=== PATIENT | female | born 1950 | race Caucasian/White ===

== ENCOUNTER 2023-07-05 11:53 | Emergency (ER) | payer MEDICARE, MEDICAID, SELFPAY ==
[2023-07-05] VITALS (9 sets, daily range): BP systolic 103–128; BP diastolic 65–97; PULSE 88–96; RESP 14–20; TEMP 36.4; O2SAT 95–100
--- NOTE | ~2023-07-05 | XR_ITS ---
EXAM: XR shoulder LT min 2V, XR humerus LT DATE: 07/05/2023 14:07 HISTORY: fracture on xr, BEST IMAGES POSSIBLE . COMPARISON: None available. FINDINGS: Decreased mineralization. The AC joint and glenohumeral joint are aligned. Moderate polyar ticular shoulder osteoarthritis. Rotator cuff pathology. Left chest port terminating in the proximal SVC. Deformity of the humeral head, may represent acute or chronic fracture. No lytic or blastic lesi on. Joint spaces are maintained. No erosion or periosteal change. Soft tissues within normal limits. IMPRESSION: Acute versus chronic impacted left humeral head fracture, no comparisons are available, c orrelate with pain/tenderness.. Reviewed, dictated and finalized at location K. IMPRESSION: Acute versus chronic impacted left humeral head fracture, no compar isons are available, correlate with pain/tenderness..
--- NOTE | ~2023-07-05 | XR_ITS ---
EXAMINATION: XR chest 2V DATE: 07/05/2023 13:21 INDICATION: Shortness of breath TECHNIQUE: frontal and lateral views of the chest were obtained. COMPARISON: None FINDINGS: Left internal jugular central venous port catheter with distal tip at the cephalad superior vena cava . Opacity along the right heart border which could represent atelectasis or pneumonia in the right mi ddle lobe or more likely a prominent right pericardial fat pad. Calcified nodules in the right midlun g zone and calcified right hilar and mediastinal lymph nodes consistent with old granulomatous diseas e. No pleural effusion or pneumothorax. Heart size is normal. Age-indeterminate proximal left humeral fracture. IMPRESSION: 1. Opacity along the right heart border most likely related to a pericardial fat pad although atelect asis or pneumonia in the right middle lobe could not be excluded. 2. Age-indeterminate proximal left humeral fracture. Reviewed, dictated and finalized at location A. IMPRESSION: 1. Opacity along the right heart border most likely related to a pericardial fa t pad although atelectasis or pneumonia in the right middle lobe could not be e xcluded. 2. Age-indeterminate proximal left humeral fracture.
--- NOTE | 2023-07-05 12:00 | ECG_ITS ---
Measurements Intervals [place] Rate: 92 P: 100 [place]: 171 QRS: -31 QRSD: 82 T: 73 QT: 367 QTc: 456 Interpretive Statements SINUS RHYTHM LEFT AXIS DEVIATION DELAYED PRECORDIAL R/S TRANSITION BORDERLINE ST-T WAVE ABNORMALITY- HIGH LATERAL LEADS BASELINE ARTIFACT- I, II, III, AVR, AVL, AVF BORDERLINE ECG NO PREVIOUS ECG AVAILABLE FOR COMPARISON Electronically Signed On 07-05-2023 13:30:54 CDT by Rm Bishop D.O.
--- NOTE | 2023-07-05 12:04 | ED.SOB ---
HPI - SOB/Dyspnea General Chief Complaint: Shortness of Breath/Dyspnea Stated Complaint: dyspnea History of Present Illness HPI Narrative: Patient is a 72-year-old female with history of COPD, GERD, breast CA, T2DM, depression, anxiety here with shortness of breath and cough. Patient states that her symptoms began about 2 weeks ago, she has had a productive cough associated with green sputum. She notes some associated midsternal chest pain which is nonradiating and seems to worsen with a cough. She denies any cardiac history, denies any history of PE or DVT. Unknown if she has had any sick contacts. She states that she wears 2-3 L nasal cannula at baseline which she is currently on now. Per EMS there were initial call was for shortness of breath, patient had received a 0.5 mg of Ativan as well as a breathing treatment and on driving patient into the department she noted her shortness of breath significantly improved. Related Data Allergies Allergy/AdvReac Type Severity Reaction Status Date / Time No Known Allergies Allergy Verified 07/05/23 12:09 Review of Systems Review of Systems: All systems reviewed & are unremarkable except as noted in HPI and below Exam Narrative: GENERAL: Well-appearing, well-nourished, and in no acute distress. HEAD: Normocephalic, atraumatic. EYES: PERRLA and EOMI. ENT: Nares clear. Mucous membranes moist. NECK: Supple. CHEST: Faint bilateral wheeze present. No respiratory distress. Saturating 95% on 2L nasal canula. HEART: Regular rate and rhythm. Normal peripheral pulses. ABDOMEN: Soft, nontender, nondistended. EXTREMITIES: Normal range of motion. No edema. SKIN: Warm, dry, no rash. NEURO: No focal deficits. Alert and oriented x3. PSYCH: Normal mood and affect. Course Course Emergency Course: Chart review performed. Patient here with shortness of breath and productive cough. No prior visits in our system. Triage vitals normal. Patient seen evaluated, nontoxic appearing. She is here with shortness of breath, cough and chest pain. Differentials include PNA, viral illness, COPD exacerbation, less likely ACS, PE. Cardiac workup ordered, viral swabs, d-dimer. Lab work and imaging reviewed. CBC unremarkable, D-dimer negative. Electrolytes within normal limits, troponin negative. BNP normal. Chest x-ray shows possible right infiltrate. Will start on antibiotics for pneumonia coverage with Augmentin and doxycycline. They did see a fracture of the proximal humerus. Dedicated humerus films and shoulder films performed. Acute versus chronic fracture seen on x-ray. Spoke with son who notes that this is a prior injury after falling at her last facility she lives at. Repeat troponin negative. The results of pertinent diagnostic studies and exam findings were discussed. The patient?s provisional diagnosis and plan of care were discussed with the patient and present family. The patient and/or present family expressed understanding of the diagnosis and plan. The nurse was instructed to provide written instructions and appropriate follow-up information. The patient understands their need and responsibility to obtain additional follow-up as instructed. The risks of medications administered and prescribed were discussed with the patient and family present. Vital Signs Vital signs: Vital Signs Temperature 97.5 F L 07/05/23 11:53 Pulse Rate 91 07/05/23 11:53 Respiratory Rate 15 07/05/23 11:53 Blood Pressure 125/79 07/05/23 11:53 Pulse Oximetry 96 07/05/23 11:53 Oxygen Delivery Nasal Cannula 07/05/23 11:53 Oxygen Flow Rate 2 07/05/23 11:53 Temperature 97.5 F L 07/05/23 11:53 Pulse Rate 93 07/05/23 15:27 Respiratory Rate 14 07/05/23 15:27 Blood Pressure 105/70 07/05/23 15:27 Pulse Oximetry 100 07/05/23 15:27 Oxygen Delivery Nasal Cannula 07/05/23 14:37 Oxygen Flow Rate 2 07/05/23 14:37 MDM - SOB/Dyspnea Lab Data 07/05/23 12:29
--- NOTE | 2023-07-05 12:32 | PC.NURSE ---
Pt reports she had double mastectomy. Pt states she cannot have BP taken on either arm but states she can have blood work and IV's placed in either arm
[2023-07-05 12:36] LABS: Basophils Absolute Auto 0.1 K/mm3 (0.0-0.1); Basophils Percent Auto 0.8 % (0.2-1.2); Eosinophils Absolute Auto 0.1 K/mm3 (0-0.3); Eosinophils Percent Auto 0.9 % (0-4.4); Hematocrit 43.7 % (37.0-47.0); Hemoglobin 14.3 g/dL (12.0-15.0); Immature Granulocyte Absolute 0.02 K/mm3 (0.00-0.031); Immature Granulocyte Percent A 0.3 % (0-0.5); Lymphocytes Absolute Auto 1.56 K/mm3 (0.9-3.2); Lymphocytes Percent Auto 20.3 % (18.3-44.2); Mean Corpuscular HGB Conc 32.7 g/dl (32-36); Mean Corpuscular Hemoglobin 30.9 pg (26-34); Mean Corpuscular Volume 94.4 fl (80-100); Mean Platelet Volume 10.3 fl (7.4-10.4); Monocytes Absolute Auto 0.5 K/mm3 (0.1-0.6); Neutrophils Absolute Auto 5.4 K/mm3 (1.3-6.7); Neutrophils Percent Auto 70.7 % (45.5-73.1); Platelet Count Result 195 k/mm3 (150-375); Red Blood Count 4.63 M/mm3 (4.2-5.4); Red Cell Distribution Width 14.3 % (11.5-14.5); White Blood Count 7.7 K/mm3 (4.5-10.0)
[2023-07-05 12:47] LABS: INR 1.1; Prothrombin Time 14.9 Seconds (11.1-14.7)
[2023-07-05 12:48] LABS: Lactic Acid Reflex 2.9 mmol/L (0.7-2.0); Partial Thromboplastin Time 35.1 Seconds (22.3-36.8)
[2023-07-05 12:50] LABS: Alanine Aminotransferase 60 U/L (6-35); Albumin Level 4.2 g/dL (3.5-5.1); Alkaline Phosphatase 105 U/L (38-126); Anion Gap 8 mmol/L (8-16); Aspartate Amino Transferase 114 U/L (14-36); Bilirubin,Total 0.5 mg/dL (0.2-1.3); Blood Urea Nitrogen 12 mg/dL (7-17); Calcium 9.4 mg/dL (8.4-10.2); Carbon Dioxide 29 mmol/L (22-30); Chloride 101 mmol/L (98-107); Estimated CRCL calculation 105 ml/min; Estimated Glomerular Filt Rate > 60; Glucose 152 mg/dL (65-110); Potassium 4.1 mmol/L (3.4-5.0); Sodium 138 mmol/L (137-145)
[2023-07-05 12:53] LABS: D Dimer 0.44 ug/mL (<0.48)
[2023-07-05 13:01] LABS: NT Pro B Type Natriuretic Pept 90 pg/mL (19.9-100); Troponin I < 0.012 ng/mL (0.000-0.034)
[2023-07-05] MEDS: LACTATED RINGERS 1,000 ML 999 ML IV CONT (13:33)
[2023-07-05] MEDS: IPRATROPIUM 0.5 MG/ALBUTEROL SULFATE 2.5 MG AMPUL.NEB 3 ML INHALATION (13:35)
[2023-07-05 14:25] LABS: Influenza A QL RT-PCR Negative (Negative); Influenza B QL RT-PCR Negative (Negative); RSV RNA, RT-PCR Negative (Negative); SARS-CoV-2 RNA PCR Negative (Negative)
[2023-07-05] MEDS: AMOXICILLIN/CLAVULANATE K 875-125 MG TAB 1 TABLET PO (14:33)
[2023-07-05] MEDS: DOXYCYCLINE HYCLATE 100 MG TABLET PO (14:33)
--- NOTE | 2023-07-05 15:16 | ECG_ITS ---
Measurements Intervals [place] Rate: 94 P: 102 [place]: 168 QRS: -32 QRSD: 85 T: 79 QT: 361 QTc: 451 Interpretive Statements SINUS RHYTHM LEFT AXIS DEVIATION DELAYED PRECORDIAL R/S TRANSITION BORDERLINE ST-T WAVE ABNORMALITY- HIGH LATERAL LEADS BASELINE ARTIFACT- I, II, III, AVR, AVL, AVF BORDERLINE ECG COMPARED TO ECG 07/05/2023 11:57:00 NO SIGNIFICANT CHANGES Electronically Signed On 07-05-2023 16:13:19 CDT by Rm Bishop D.O.
[2023-07-05 15:34] LABS: Reflex Lactic Acid Yes or No Add Lactic
[2023-07-05 15:50] LABS: Troponin I < 0.012 ng/mL (0.000-0.034)
== END 2023-07-05 17:09 ==
PROVIDERS: Emergency Provider Student in an Organized Health Care Education/Training Program; PCP Hospitalist
DX: J18.9 Pneumonia, unspecified organism (principal); S42.202D Unspecified fracture of upper end of left humerus, subsequent encounter for fracture with routine healing; J44.9 Chronic obstructive pulmonary disease, unspecified; E11.9 Type 2 diabetes mellitus without complications; Z85.3 Personal history of malignant neoplasm of breast; Z20.822 Contact with and (suspected) exposure to COVID-19; X58.XXXD Exposure to other specified factors, subsequent encounter
CPT/HCPCS: 36415; 71046; 73030; 73060; 80053; 83605; 83880; 84484; 85025; 85380; 85610; 85730; 87040; 87637; 93005; 94640; 96360; 99284; A9270; J7120

== ENCOUNTER 2023-10-28 07:25 | Inpatient (IN) | payer MEDICARE, MEDICAID, SELFPAY ==
[2023-10-28] VITALS (28 sets, daily range): BP systolic 113–160; BP diastolic 65–149; PULSE 72–105; RESP 14–23; TEMP 36.6–37.5; O2SAT 90–100
--- NOTE | ~2023-10-28 | XR_ITS ---
XR chest 2V Ordering provider: Clarissa Dennis MD History: 72 years Female with . cough CONGESTION SOB COPD . Comparison: 07/05/2023 FINDINGS: MEDIASTINUM: The cardiac silhouette is not enlarged. Left Port-A-Cath with the tip overlying superior vena cava. Prominent both santhosh. LUNGS: No infiltrates, effusions or pneumothorax. Atelectatic changes seen in the right lung base med ially. Granuloma in the right perihilar area unchanged. OTHER: No free air under the diaphragm. IMPRESSION: Atelectatic changes in the right middle lobe area. Pneumonia cannot be excluded. No change from previ ous examination. Reviewed, dictated and finalized at location A. IMPRESSION: Atelectatic changes in the right middle lobe area. Pneumonia cannot be excluded . No change from previous examination.
--- NOTE | ~2023-10-28 | CT_ITS ---
EXAMINATION: CT abdomen pelvis wo con DATE: 10/28/2023 18:44 INDICATION: Generalized abdominal pain. TECHNIQUE: Computed tomography (CT) of the abdomen and pelvis was performed without intravenous contr ast. Automated exposure control and iterative reconstruction technique were employed. The dose-length product was 2624.95 mGy-cm. COMPARISON: None. FINDINGS: The visualized portions of lung bases demonstrate emphysema and mild atelectasis. No pleura l effusion. The heart size is normal. There are coronary artery calcifications. There are calcificati ons of the aortic valve. There is a small pericardial effusion. The liver demonstrates surface nodula rity, consistent with cirrhosis. Calcifications in the liver and spleen are consistent with old granu lomatous disease. There are gallstones in the gallbladder, which is normal in size. The pancreas and left adrenal gland are normal. There is a 5.0 cm mass containing fat in right adrenal gland, consiste nt with a myelolipoma. Right kidney is normal. There is a 3.3 cm cyst in left kidney. There is divert iculosis of the colon without evidence of diverticulitis. There are no dilated loops of bowel. The ap pendix is normal. There are no pathologically enlarged lymph nodes. There is no free intraperitoneal fluid. There is a chronic burst fracture of L1. There is a chronic compression fracture of T12. There is mild lumbar spondylosis. IMPRESSION: 1. Cirrhosis of the liver. 2. Small pericardial effusion. 3. Cholelithiasis. Reviewed, dictated and finalized at location E.
--- NOTE | 2023-10-28 07:31 | ECG_ITS ---
Test Date: 2023-10-28 07:31:57 Measurements Intervals [place] Rate: 77 P: 27 [place]: 179 QRS: -32 QRSD: 82 T: 79 QT: 374 QTc: 425 Interpretive Statements SINUS RHYTHM LEFT AXIS DEVIATION LOW QRS VOLTAGE IN PRECORDIAL LEADS NONSPECIFIC ST & T-WAVE ABNORMALITY- HIGH LATERAL LEADS BASELINE ARTIFACT- I, II, III, AVR, AVL, AVF, V1-V6 BORDERLINE ECG No previous ECG available for comparison Electronically Signed On 10-28-2023 07:44:36 CDT by Rm Bishop D.O.
[2023-10-28 07:46] LABS: Basophils Percent Auto 0.5 % (0.2-1.2); Eosinophils Absolute Auto 0.1 K/mm3 (0-0.3); Eosinophils Percent Auto 0.9 % (0-4.4); Hematocrit 41.5 % (37.0-47.0); Hemoglobin 13.2 g/dL (12.0-15.0); Immature Granulocyte Absolute 0.03 K/mm3 (0.00-0.031); Immature Granulocyte Percent A 0.4 % (0-0.5); Lymphocytes Absolute Auto 1.76 K/mm3 (0.9-3.2); Lymphocytes Percent Auto 20.7 % (18.3-44.2); Mean Corpuscular HGB Conc 31.8 g/dl (32-36); Mean Corpuscular Hemoglobin 31.1 pg (26-34); Mean Corpuscular Volume 97.9 fl (80-100); Mean Platelet Volume 10.2 fl (7.4-10.4); Monocytes Absolute Auto 0.6 K/mm3 (0.1-0.6); Monocytes Percent Auto 7.4 % (2.6-8.5); Neutrophils Percent Auto 70.1 % (45.5-73.1); Platelet Count Result 193 k/mm3 (150-375); Red Blood Count 4.24 M/mm3 (4.2-5.4); Red Cell Distribution Width 14.8 % (11.5-14.5); White Blood Count 8.5 K/mm3 (4.5-10.0)
--- NOTE | 2023-10-28 07:49 | ED.SOB ---
HPI - SOB/Dyspnea General Chief Complaint: Shortness of Breath/Dyspnea Stated Complaint: SOB History of Present Illness HPI Narrative: Patient is a 72-year-old female with history of COPD on 2-3 L nasal cannula at baseline, bedbound sent here from [facility] for cough. Patient notes that she has had a cough for about 4 weeks. she notes that she feels like she needs to cough up phlegm but she is unable to. It has been persistently worsening over the last 4 weeks. She denies any associated fever. She has had some chronic nasal congestion due to her nasal cannula use. She notes she has had 2 separate x-rays at her care facility which were found to be normal. She has not been on any antibiotics or steroids. she does not traditionally use breathing treatments due to them making her feel jittery and nauseous however her facility did order her an albuterol inhaler the other day which she has not been using. She denies any chest pain. No prior cardiac history, no leg swelling. She notes she has had ongoing diarrhea which resolved a couple of days ago after taking a dose of Imodium. No known sick contacts. Related Data Allergies Allergy/AdvReac Type Severity Reaction Status Date / Time No Known Allergies Allergy Verified 07/05/23 12:09 Review of Systems Review of Systems: All systems reviewed & are unremarkable except as noted in HPI and below PMFSH Past Medical History Medical History COPD (chronic obstructive pulmonary disease) Diabetes Surgical History Surgical History No significant past surgical history Social History Social History Smoking status: Never smoker Second hand tobacco smoke exposure: No Alcohol intake: never Substance use: never Do You Feel Safe in your Home?: Yes Lack of Transportation: No Lack of Food: Never True Current Housing: I Have Housing Concerned About Future Housing: No Difficulty Paying Gas/Electric Bills: No Difficulty Paying for Meds: No Currently Unemployed: No Education: High School Diploma/GED Difficulty w/ Childcare or Family Care: No Spiritual care concerns: No Exam Narrative: GENERAL: Well-appearing, well-nourished, and in no acute distress. HEAD: Normocephalic, atraumatic. EYES: PERRLA and EOMI. ENT: Nares clear. Mucous membranes moist. NECK: Supple. CHEST: Coarse bilateral breath sounds. Actively coughing on exam. No respiratory distress. HEART: Regular rate and rhythm. Normal peripheral pulses. ABDOMEN: Soft, nontender, nondistended. EXTREMITIES: Normal range of motion. No edema. SKIN: Warm, dry, no rash. NEURO: No focal deficits. Alert and oriented x3. Tremor noted in bilateral upper extremities PSYCH: Normal mood and affect. Course Course Emergency Course: Chart review performed. Patient here from [facility] for cough and congestion x 4 weeks. History of COPD, wears 2L NC at all times. Triage vitals grossly normal. Patient seen evaluated, nontoxic appearing. She does have coarse bilateral breath sounds and is actively coughing on exam. Concern for possible pneumonia versus viral illness versus bronchitis versus COPD exacerbation. Less likely ACS or heart failure given lack of history and no chest pain or leg swelling. Will do breathing treatment, steroids, workup for shortness of breath as well as a cardiac workup. Patient agreeable to workup and plan. Lab work and imaging reviewed, CBC unremarkable, electrolytes grossly normal with a normal renal function. AST and ALT are lower than prior. Troponin normal, BNP normal. COVID, influenza, RSV negative. Chest x-ray shows atelectasis in the right middle lobe area, pneumonia cannot be excluded, no change from previous exam. Rocephin and azithromycin ordered to cover for COPD exacerba
--- NOTE | 2023-10-28 07:51 | ECG_ITS ---
Test Date: 2023-10-28 08:11:11 Measurements Intervals [place] Rate: 79 P: 44 [place]: 185 QRS: -21 QRSD: 85 T: 62 QT: 396 QTc: 455 Interpretive Statements SINUS RHYTHM LOW QRS VOLTAGE IN PRECORDIAL LEADS BORDERLINE ST-T WAVE ABNORMALITY- HIGH LATERAL LEADS BASELINE ARTIFACT- I, II, III, AVR, AVL, AVF, V1-V6 BORDERLINE ECG Compared to ECG 10/28/2023 07:31:57 No significant changes Electronically Signed On 10-28-2023 08:26:08 CDT by Rm Bishop D.O.
[2023-10-28 07:59] LABS: Alanine Aminotransferase 44 U/L (6-35); Albumin Level 3.8 g/dL (3.5-5.1); Alkaline Phosphatase 114 U/L (38-126); Anion Gap 3 mmol/L (4-12); Aspartate Amino Transferase 59 U/L (14-36); Bilirubin,Total 0.6 mg/dL (0.2-1.3); Blood Urea Nitrogen 8 mg/dL (7-17); Calcium 8.5 mg/dL (8.4-10.2); Carbon Dioxide 39 mmol/L (22-30); Chloride 100 mmol/L (98-107); Estimated CRCL calculation 102 ml/min; Estimated Glomerular Filt Rate > 60; Glucose 128 mg/dL (65-110); Potassium 3.9 mmol/L (3.4-5.0); Sodium 142 mmol/L (137-145)
[2023-10-28 08:11] LABS: NT Pro B Type Natriuretic Pept 145 pg/mL (19.9-100); Troponin I < 0.012 ng/mL (0.000-0.034)
[2023-10-28 08:22] LABS: Influenza A QL RT-PCR Negative (Negative); Influenza B QL RT-PCR Negative (Negative); RSV RNA, RT-PCR Negative (Negative); SARS-CoV-2 RNA PCR Negative (Negative)
[2023-10-28] MEDS: methylPREDNISolone SOD SUCC 125 MG VIAL IV PUSH (08:35)
[2023-10-28] MEDS: IPRATROPIUM BR 0.02% INH SOLN 0.5 MG/2.5 ML VIAL INHALATION ×3 (08:36→20:22)
[2023-10-28] MEDS: LEVALBUTEROL NEB 1.25 MG/3 ML INHALATION (08:36)
--- NOTE | 2023-10-28 12:42 | PM.IMHP ---
H&P: HPI History of Present Illness Date/Time: 10/28/23 12:42 Chief Complaint: Shortness of Breath Narrative: 72 y/o F presents here with shortness of breath with PMH of DM depression/anxiety, and COPD. The patient presents here via EMS from [facility] for further evaluation of ongoing shortness of breath. Initially started with cough that was nonproductive, cough now producing green sputum. Has been progressively worsening over the last 4 weeks and now has associated shortness of breath. Endorsing nasal and chest congestion (chronic due to nasal cannula usage) have worsened. States she was up all last night due to the shortness of breath and cough. Shortness of breath worsens with exertion or laying flat. Patient also reports baseline tremor to upper extremities, worsened at present. Endorsing accompanying chest pain that occurs with cough, fever, chills, diaphoretic. Denying associated palpitations, body aches, or diarrhea. Does not utilize nebulizers, make patient jittery/nauseous. Was recently prescribed Albuterol inhaler, has not utilized yet. No recent steroid courses or antibiotic courses. Also reporting onset of diffuse abdominal pain with tenderness with palpation today. LBM was yesterday (10/26) and normal in consistency. No associated N/V/D. Had jelly-like stool this afternoon, no BRB per rectum or dark tarry stools. Initial VS at presentation: 99.5? F, HR 77, RR 20, 129/104, and 93% on 2L NC. ED workup showed: No leukocytosis, no anemia, CO2 39, gap 3, creatinine 0.5 and GFR >60, mild bump in LFTs, initial troponin negative, and BNP 145. Viral PCR negative. CXR showed atelectatic changes of the right middle lobe area, pneumonia cannot be excluded, no change from previous exam (06/2023). Review of Systems Review of Systems: All systems reviewed & are unremarkable except as noted in HPI and below PMFSH Past Medical History Medical History COPD (chronic obstructive pulmonary disease) Diabetes Surgical History Surgical History No significant past surgical history Social History Social History Smoking status: Never smoker Second hand tobacco smoke exposure: No Alcohol intake: never Substance use: never Do You Feel Safe in your Home?: Yes Lack of Transportation: No Lack of Food: Never True Current Housing: I Have Housing Concerned About Future Housing: No Difficulty Paying Gas/Electric Bills: No Difficulty Paying for Meds: No Currently Unemployed: No Education: High School Diploma/GED Difficulty w/ Childcare or Family Care: No Spiritual care concerns: No Meds Home Medications and Allergies Home Medications Medication Instructions Recorded Confirmed Type acetaminophen 650 mg tablet 650 mg PO TID 10/28/23 10/28/23 History albuterol sulfate 90 mcg/actuation 2 puff inhalation Q4H PRN S.O.B 10/28/23 10/28/23 History aerosol inhaler aripiprazole 2 mg tablet 2 mg PO DAILY 10/28/23 10/28/23 History aripiprazole 5 mg tablet 5 mg PO DAILY 10/28/23 10/28/23 History buspirone 10 mg tablet 10 mg PO TID 10/28/23 10/28/23 History cholecalciferol (vitamin D3) 25 50 mcg PO DAILY 10/28/23 10/28/23 History mcg (1,000 unit) capsule (Vitamin D3) escitalopram oxalate 10 mg tablet 20 mg PO DAILY 10/28/23 10/28/23 History ferrous sulfate 325 mg (65 mg 325 mg PO DAILY 10/28/23 10/28/23 History iron) tablet furosemide 40 mg tablet 40 mg PO DAILY 10/28/23 10/28/23 History gabapentin 600 mg tablet 600 mg PO TID 10/28/23 10/28/23 History insulin aspart U-100 100 unit/mL See Rx Instructions .Route .COMPLEX 10/28/23 10/28/23 History (3 mL) subcutaneous pen lorazepam 0.5 mg tablet 0.5 mg PO QHS 10/28/23 10/28/23 History memantine 10 mg tablet 10 mg PO BID 10/28/23 10/28/23 History metformin 500 mg tablet 5
[2023-10-28] MEDS: BENZONATATE 100 MG CAPSULE PO ×2 (13:06→17:30)
--- NOTE | 2023-10-28 14:00 | ADMGEN ---
This patient, Marleni Mcgrath, was admitted to Medical Room 240-01. Patient/family oriented to hospital policies and general routines including ID bracelet, bed and alarms, visiting hours, pain management, procedures, bathroom and other care routines, personal items, smoking policy, room service/diet, and visiting hours. Information on how to activate the Rapid Response Team has been discussed. Patient/Family are encouraged to report perceived risks to care and to ask questions if they do not understand what they are told or what they should do.
[2023-10-28] MEDS: AZITHROMYCIN 500 MG/NS 250 ML 500 MG/250 ML BAG 250 MG IVPB (14:06)
[2023-10-28] MEDS: LEVALBUTEROL NEB 1.25 MG/3 ML 0.63 MG INHALATION ×2 (14:37→20:23)
[2023-10-28 17:13] LABS: Glucose Point of Care 193 mg/dl (65-105)
--- NOTE | 2023-10-28 17:58 | PC.NURSE ---
Esthela junior sent medications list, unable to read requested to be resent, new medication list unreadable, medical technical writer called facility again who reports they are out of toner and do not have access to one medical technical writer requested verbal reconciliation, Pat reviewed medications with medical technical writer via phone
[2023-10-28] MEDS: LORazepam (*CRX) 0.5 MG TABLET PO (20:14)
[2023-10-28] MEDS: GABAPENTIN 300 MG CAPSULE 600 MG PO (20:14)
[2023-10-28] MEDS: traZODone HCL 50 MG TABLET PO (20:14)
[2023-10-28] MEDS: rOPINIRole HCL 0.5 MG TABLET PO (20:14)
[2023-10-28] MEDS: traMADol HCL (*CRX) 50 MG TABLET PO (20:14)
[2023-10-28] MEDS: BENZOCAINE/MENTHOL (*BKC) 18 EA LOZENGE 1 LOZENGE PO (20:16)
[2023-10-28 21:05] LABS: Glucose Point of Care 158 mg/dl (65-105)
[2023-10-29] VITALS (12 sets, daily range): BP systolic 93–116; BP diastolic 54–65; PULSE 70–103; RESP 18–20; TEMP 36.4–36.6; O2SAT 95–100
[2023-10-29 05:08] LABS: Hemoglobin A1C 6.8 % (<5.7)
[2023-10-29] MEDS: GABAPENTIN 300 MG CAPSULE 600 MG PO ×3 (05:08→20:47)
--- NOTE | 2023-10-29 07:00 | PM.IMPN ---
Progress Note: A&P Assessment and Plan (1) Shortness of breath: Code(s): R06.02 - Shortness of breath Status: Acute Assessment and Plan: - CXR: Atelectatic changes in the right middle lobe area. Pneumonia cannot be excluded. No change from previous examination. - troponin negative, ekg showed sinus rhythm with rate of 79, low QRS voltage in precordial leads, borderline ST-T-wave abnormality high lateral leads, baseline artifact. No significant changes when compared to previous. - BNP: 145 - Viral PCR: negative - sputum culture, if obtainable - requiring home/baseline supplemental O2:2L NC - Levalbuterol and Atrovent Q6H dian - steroids: Solu-Medrol 125 mg IVP -> prednisone 40 x5 days - started on ceftriaxone and azithromycin on 10/27 -add Mucinex b.i.d. - supportive care: lozenge prn, tylenol prn (2) Abdominal pain: Qualifiers: Abdominal location: generalized Qualified Code(s): R10.84 - Generalized abdominal pain Code(s): R10.9 - Unspecified abdominal pain Status: Acute Assessment and Plan: - diffuse abdominal pain with no associated N/V/D or constipation, has jelly like stool today - CT abd/pelvis w/o con showed cirrhosis of the liver, small pericardial effusion, and cholelithiasis (3) Diabetes: Qualifiers: Diabetes mellitus complication status: without complication Diabetes mellitus shelter insulin use: without shelter use Diabetes mellitus type: type 2 Qualified Code(s): E11.9 - Type 2 diabetes mellitus without complications Code(s): E11.9 - Type 2 diabetes mellitus without complications Status: Acute Assessment and Plan: - hypoglycemia protocol - POC blood glucose ACHS - home medication: Hold home sliding scale and metformin - correct regimen ordered - high dose TIDWM, on steroids - A1C 6.8% Plan Patient here from [facility] [address] for ongoing shortness of breath. CXR largely unchanged from previous in June of 2023. Will treat as COPD exacerbation. Steroids, nebs, and supportive care. Diet: Diabetic GI Prophylaxis: not currently indicated DVT Prophylaxis: SCDs Lines: peripheral Code Status: full code Subjective Date/time seen: 10/29/23 07:00 Interval history: 72 y/o F presents here with shortness of breath with PMH of DM depression/anxiety, and COPD. 10/28: No acute events overnight. Patient states that her breathing is improved since coming to the hospital. She does not appear in acute distress and is on her baseline 2 L. she says that when she 1st came in she was having expiratory wheezing which is improving. She also reports increased sputum production and headache. Her appetite has been poor over the last 4-5 days but this morning she was having a 2nd breakfast. Last bowel movement yesterday. She reports her abdominal pain is better. She is also concerned about an essential upper extremity tremor. She states that she has talked to her primary care provider about this and they told her it was not related to Parkinson's. She is unsure if she is been trialed on medications. Chart review shows she is already on primidone, gabapentin. Review of Systems Review of Systems: All systems reviewed & are unremarkable except as noted in HPI and below Exam Narrative: General: Chronically ill-appearing, appears stated age. HEENT: normocephalic, atraumatic. Mucous membranes moist. EOMI, PERRLA, bilateral sclera anicteric, no conjunctival injection. Neck supple without JVD, lymphadenopathy, or bruit. Respiratory: Course on auscultation bilaterally. No rales/rhonic/+ expiratory wheezes. Cardiovascular: Regular rate and rhythm, normal S1-S2 upon auscultation. No murmurs, rubs, or clicks. PMI is nondisplaced, capillary refill less than 3 second. Abdomen: Soft, round, no pulsatile masses, nondistended and nontender. No rebound, no guarding. No CVA tenderness, no hepatosplenomegaly. Bowel sounds present to a
[2023-10-29] MEDS: LEVALBUTEROL NEB 1.25 MG/3 ML 0.63 MG INHALATION ×3 (07:11→20:29)
[2023-10-29] MEDS: IPRATROPIUM BR 0.02% INH SOLN 0.5 MG/2.5 ML VIAL INHALATION ×3 (07:12→20:30)
[2023-10-29] MEDS: MEMANTINE 10 MG TABLET PO ×2 (08:33→16:46)
[2023-10-29] MEDS: traMADol HCL (*CRX) 50 MG TABLET PO ×4 (08:34→20:46)
[2023-10-29] MEDS: TAMOXIFEN CITRATE (*CHEMO) 10 MG TABLET 20 MG PO (08:34)
[2023-10-29] MEDS: FERROUS SULFATE 325 MG TABLET DR PO (08:34)
[2023-10-29] MEDS: ESCITALOPRAM OXALATE 10 MG TABLET 20 MG PO (08:34)
[2023-10-29] MEDS: ARIPiprazole 5 MG TABLET PO (08:34)
[2023-10-29] MEDS: CHOLECALCIFEROL 1,000 UNITS TABLET 1000 UNITS PO (08:34)
[2023-10-29] MEDS: PANTOPRAZOLE 40 MG TABLET PO ×2 (08:34→20:46)
[2023-10-29] MEDS: FUROSEMIDE 40 MG TABLET PO (08:34)
[2023-10-29] MEDS: PRIMIDONE 50 MG TABLET PO ×2 (08:34→16:46)
[2023-10-29] MEDS: BENZONATATE 100 MG CAPSULE PO (08:34)
[2023-10-29] MEDS: ARIPiprazole 2 MG TABLET PO (08:34)
[2023-10-29] MEDS: predniSONE 20 MG TABLET 40 MG PO (08:34)
[2023-10-29] MEDS: busPIRone HCL 10 MG TABLET PO ×3 (08:34→16:46)
[2023-10-29 09:01] LABS: Glucose Point of Care 121 mg/dl (65-105)
[2023-10-29] MEDS: ACETAMINOPHEN 500 MG TABLET PO (11:27)
[2023-10-29 12:06] LABS: Glucose Point of Care 206 mg/dl (65-105)
[2023-10-29] MEDS: AZITHROMYCIN 500 MG/NS 250 ML 500 MG/250 ML BAG 250 MG IVPB (12:09)
[2023-10-29] MEDS: INSULIN ASPART (*BKC) 100 UNITS/ML SUB-Q (12:11)
[2023-10-29] MEDS: PRIMIDONE 25 MG TABLET PO (16:46)
[2023-10-29 17:09] LABS: Glucose Point of Care 144 mg/dl (65-105)
[2023-10-29 20:30] LABS: Glucose Point of Care 217 mg/dl (65-105)
[2023-10-29] MEDS: rOPINIRole HCL 0.5 MG TABLET PO (20:46)
[2023-10-29] MEDS: traZODone HCL 50 MG TABLET PO (20:46)
[2023-10-29] MEDS: guaiFENesin 12 HR 600 MG TABCR 1200 MG PO (20:46)
[2023-10-29] MEDS: LORazepam (*CRX) 0.5 MG TABLET PO (20:46)
[2023-10-30] VITALS (13 sets, daily range): BP systolic 111–124; BP diastolic 58–76; PULSE 65–84; RESP 18–20; TEMP 36.6–36.8; O2SAT 92–97
[2023-10-30] MEDS: IPRATROPIUM BR 0.02% INH SOLN 0.5 MG/2.5 ML VIAL INHALATION ×4 (02:36→19:58)
[2023-10-30] MEDS: LEVALBUTEROL NEB 1.25 MG/3 ML 0.63 MG INHALATION ×2 (02:36→07:37)
[2023-10-30 05:04] LABS: Basophils Percent Auto 0.3 % (0.2-1.2); Eosinophils Percent Auto 0.1 % (0-4.4); Hematocrit 37.4 % (37.0-47.0); Hemoglobin 11.9 g/dL (12.0-15.0); Immature Granulocyte Absolute 0.02 K/mm3 (0.00-0.031); Immature Granulocyte Percent A 0.3 % (0-0.5); Lymphocytes Absolute Auto 2.05 K/mm3 (0.9-3.2); Lymphocytes Percent Auto 29.4 % (18.3-44.2); Mean Corpuscular HGB Conc 31.8 g/dl (32-36); Mean Corpuscular Hemoglobin 31.4 pg (26-34); Mean Corpuscular Volume 98.7 fl (80-100); Mean Platelet Volume 10.5 fl (7.4-10.4); Monocytes Absolute Auto 0.6 K/mm3 (0.1-0.6); Monocytes Percent Auto 8.5 % (2.6-8.5); Neutrophils Absolute Auto 4.3 K/mm3 (1.3-6.7); Neutrophils Percent Auto 61.4 % (45.5-73.1); Platelet Count Result 163 k/mm3 (150-375); Red Blood Count 3.79 M/mm3 (4.2-5.4); Red Cell Distribution Width 14.9 % (11.5-14.5)
[2023-10-30 05:23] LABS: Alanine Aminotransferase 38 U/L (6-35); Albumin Level 3.4 g/dL (3.5-5.1); Alkaline Phosphatase 80 U/L (38-126); Anion Gap 6 mmol/L (4-12); Aspartate Amino Transferase 56 U/L (14-36); Bilirubin,Total 0.4 mg/dL (0.2-1.3); Blood Urea Nitrogen 16 mg/dL (7-17); Calcium 8.5 mg/dL (8.4-10.2); Carbon Dioxide 34 mmol/L (22-30); Chloride 101 mmol/L (98-107); Estimated CRCL calculation 87 ml/min; Estimated Glomerular Filt Rate > 60; Glucose 107 mg/dL (65-110); Potassium 4.1 mmol/L (3.4-5.0); Sodium 141 mmol/L (137-145)
[2023-10-30] MEDS: GABAPENTIN 300 MG CAPSULE 600 MG PO ×3 (05:35→21:01)
--- NOTE | 2023-10-30 07:10 | PM.IMPN ---
Progress Note: A&P Assessment and Plan (1) Shortness of breath: Code(s): R06.02 - Shortness of breath Status: Acute Assessment and Plan: - CXR: Atelectatic changes in the right middle lobe area. Pneumonia cannot be excluded. No change from previous examination. - troponin negative, ekg showed sinus rhythm with rate of 79, low QRS voltage in precordial leads, borderline ST-T-wave abnormality high lateral leads, baseline artifact. No significant changes when compared to previous. - BNP: 145 - Viral PCR: negative - sputum culture, if obtainable - requiring home/baseline supplemental O2:2L NC - Levalbuterol and Atrovent increased to Q 4 hours -added incentive spirometer - steroids: Solu-Medrol 125 mg IVP in the ED. Was started on prednisone but given her lack of improvement will transition back to solu-medrol 40 mg IVP Q 6 hours. - started on ceftriaxone and azithromycin on 10/27 -add Mucinex b.i.d. - supportive care: lozenge prn, tylenol prn (2) Abdominal pain: Qualifiers: Abdominal location: generalized Qualified Code(s): R10.84 - Generalized abdominal pain Code(s): R10.9 - Unspecified abdominal pain Status: Acute Assessment and Plan: - diffuse abdominal pain with no associated N/V/D or constipation, has jelly like stool today - CT abd/pelvis w/o con showed cirrhosis of the liver, small pericardial effusion, and cholelithiasis RESOLVED. (3) Diabetes: Qualifiers: Diabetes mellitus complication status: without complication Diabetes mellitus jail insulin use: without intermediate frame tender use Diabetes mellitus type: type 2 Qualified Code(s): E11.9 - Type 2 diabetes mellitus without complications Code(s): E11.9 - Type 2 diabetes mellitus without complications Status: Acute Assessment and Plan: - hypoglycemia protocol - POC blood glucose ACHS - home medication: Hold home sliding scale and metformin - correct regimen ordered - high dose TIDWM, on steroids - A1C 6.8% Plan Patient here from [facility] for ongoing shortness of breath. CXR largely unchanged from previous in June of 2023. Will treat as COPD exacerbation. Steroids IVP, nebs q 4, and supportive care. Her primidone dose was also increased for her essential tremor. Diet: Diabetic GI Prophylaxis: not currently indicated DVT Prophylaxis: SCDs Lines: peripheral Code Status: full code Subjective Date/time seen: 10/30/23 07:10 Interval history: 72 y/o F presents here with shortness of breath with PMH of DM depression/anxiety, and COPD. 10/28: No acute events overnight. Patient states that her breathing is improved since coming to the hospital. She does not appear in acute distress and is on her baseline 2 L. she says that when she 1st came in she was having expiratory wheezing which is improving. She also reports increased sputum production and headache. Her appetite has been poor over the last 4-5 days but this morning she was having a 2nd breakfast. Last bowel movement yesterday. She reports her abdominal pain is better. She is also concerned about an essential upper extremity tremor. She states that she has talked to her primary care provider about this and they told her it was not related to Parkinson's. She is unsure if she is been trialed on medications. Chart review shows she is already on primidone, gabapentin. 10/29:No acute events overnight. Patient is resting in bed with congested cough which sounds worse today. She feels like her cough is worse today but still non-productive. She remains on her baseline oxygen settings of 2 L NC. Review of Systems Review of Systems: All systems reviewed & are unremarkable except as noted in HPI and below Exam Narrative: General: Chronically ill-appearing, appears stated age. HEENT: normocephalic, atraumatic. Mucous membranes moist. EOMI, PERRLA, bilateral sclera anicteric, no conjunctival injection. Neck
[2023-10-30 07:36] LABS: Glucose Point of Care 94 mg/dl (65-105)
[2023-10-30] MEDS: guaiFENesin 12 HR 600 MG TABCR 1200 MG PO ×2 (08:28→20:42)
[2023-10-30] MEDS: predniSONE 20 MG TABLET 40 MG PO (08:28)
[2023-10-30] MEDS: traMADol HCL (*CRX) 50 MG TABLET PO ×4 (08:28→20:42)
[2023-10-30] MEDS: ESCITALOPRAM OXALATE 10 MG TABLET 20 MG PO (08:28)
[2023-10-30] MEDS: ARIPiprazole 5 MG TABLET PO (08:28)
[2023-10-30] MEDS: ARIPiprazole 2 MG TABLET PO (08:28)
[2023-10-30] MEDS: CHOLECALCIFEROL 1,000 UNITS TABLET 1000 UNITS PO (08:28)
[2023-10-30] MEDS: TAMOXIFEN CITRATE (*CHEMO) 10 MG TABLET 20 MG PO (08:28)
[2023-10-30] MEDS: busPIRone HCL 10 MG TABLET PO ×3 (08:28→17:21)
[2023-10-30] MEDS: FUROSEMIDE 40 MG TABLET PO (08:28)
[2023-10-30] MEDS: MEMANTINE 10 MG TABLET PO ×2 (08:28→17:21)
[2023-10-30] MEDS: FERROUS SULFATE 325 MG TABLET DR PO (08:28)
[2023-10-30] MEDS: PANTOPRAZOLE 40 MG TABLET PO ×2 (08:28→20:43)
[2023-10-30] MEDS: PRIMIDONE 50 MG TABLET PO ×2 (08:29→17:21)
[2023-10-30] MEDS: PRIMIDONE 25 MG TABLET PO ×2 (08:29→17:21)
[2023-10-30 12:18] LABS: Glucose Point of Care 180 mg/dl (65-105)
[2023-10-30] MEDS: methylPREDNISolone SOD SUCC 40 MG VIAL IV PUSH ×3 (12:45→23:17)
[2023-10-30] MEDS: AZITHROMYCIN 500 MG/NS 250 ML 500 MG/250 ML BAG 250 MG IVPB (13:15)
[2023-10-30] MEDS: LEVALBUTEROL NEB 1.25 MG/3 ML INHALATION ×2 (13:24→19:58)
[2023-10-30 16:52] LABS: Glucose Point of Care 289 mg/dl (65-105)
[2023-10-30] MEDS: INSULIN ASPART (*BKC) 100 UNITS/ML SUB-Q (17:21)
[2023-10-30 20:12] LABS: Glucose Point of Care 308 mg/dl (65-105)
[2023-10-30] MEDS: LORazepam (*CRX) 0.5 MG TABLET PO (20:43)
[2023-10-30] MEDS: rOPINIRole HCL 0.5 MG TABLET PO (20:43)
[2023-10-30] MEDS: traZODone HCL 50 MG TABLET PO (20:43)
--- NOTE | 2023-10-30 21:52 | PC.NURSE ---
Notified Karen Altman r/t blood sugar of 308. No new orders at this time.
[2023-10-31] VITALS (14 sets, daily range): BP systolic 110–125; BP diastolic 53–77; PULSE 64–91; RESP 18–20; TEMP 36.3–36.8; O2SAT 92–97
[2023-10-31] MEDS: IPRATROPIUM BR 0.02% INH SOLN 0.5 MG/2.5 ML VIAL INHALATION ×4 (01:52→19:57)
[2023-10-31] MEDS: LEVALBUTEROL NEB 1.25 MG/3 ML INHALATION ×4 (01:52→19:57)
[2023-10-31] MEDS: GABAPENTIN 300 MG CAPSULE 600 MG PO ×3 (05:18→21:12)
[2023-10-31] MEDS: methylPREDNISolone SOD SUCC 40 MG VIAL IV PUSH ×4 (05:18→23:46)
[2023-10-31 06:39] LABS: Basophils Percent Auto 0.2 % (0.2-1.2); Eosinophils Percent Auto 0.1 % (0-4.4); Hematocrit 39.3 % (37.0-47.0); Hemoglobin 12.3 g/dL (12.0-15.0); Immature Granulocyte Absolute 0.06 K/mm3 (0.00-0.031); Immature Granulocyte Percent A 0.7 % (0-0.5); Lymphocytes Absolute Auto 0.86 K/mm3 (0.9-3.2); Lymphocytes Percent Auto 10.6 % (18.3-44.2); Mean Corpuscular HGB Conc 31.3 g/dl (32-36); Mean Corpuscular Hemoglobin 30.8 pg (26-34); Mean Corpuscular Volume 98.3 fl (80-100); Mean Platelet Volume 11.3 fl (7.4-10.4); Monocytes Absolute Auto 0.3 K/mm3 (0.1-0.6); Monocytes Percent Auto 3.2 % (2.6-8.5); Neutrophils Absolute Auto 6.9 K/mm3 (1.3-6.7); Neutrophils Percent Auto 85.2 % (45.5-73.1); Nucleated Red Blood Cells Perc 0.2 % (0.0-0.2); Platelet Count Result 184 k/mm3 (150-375); Red Cell Distribution Width 14.6 % (11.5-14.5); White Blood Count 8.1 K/mm3 (4.5-10.0)
[2023-10-31 06:48] LABS: Alanine Aminotransferase 48 U/L (6-35); Albumin Level 3.7 g/dL (3.5-5.1); Alkaline Phosphatase 89 U/L (38-126); Anion Gap 8 mmol/L (4-12); Aspartate Amino Transferase 75 U/L (14-36); Bilirubin,Total 0.4 mg/dL (0.2-1.3); Blood Urea Nitrogen 19 mg/dL (7-17); Calcium 8.5 mg/dL (8.4-10.2); Carbon Dioxide 28 mmol/L (22-30); Chloride 102 mmol/L (98-107); Estimated CRCL calculation 102 ml/min; Estimated Glomerular Filt Rate > 60; Glucose 250 mg/dL (65-110); Potassium 4.5 mmol/L (3.4-5.0); Sodium 138 mmol/L (137-145)
--- NOTE | 2023-10-31 06:53 | PM.IMPN ---
Progress Note: A&P Assessment and Plan (1) Shortness of breath: Code(s): R06.02 - Shortness of breath Status: Acute Assessment and Plan: - CXR: Atelectatic changes in the right middle lobe area. Pneumonia cannot be excluded. No change from previous examination. - troponin negative, ekg showed sinus rhythm with rate of 79, low QRS voltage in precordial leads, borderline ST-T-wave abnormality high lateral leads, baseline artifact. No significant changes when compared to previous. - BNP: 145 - Viral PCR: negative - sputum culture, if obtainable - requiring home/baseline supplemental O2:2L NC - Levalbuterol and Atrovent increased to Q 4 hours -added incentive spirometer - steroids: Solu-Medrol 125 mg IVP in the ED. Was started on prednisone but given her lack of improvement will transition back to solu-medrol 40 mg IVP Q 6 hours. - started on ceftriaxone and azithromycin on 10/27 -add Mucinex b.i.d. - supportive care: lozenge prn, tylenol prn (2) Abdominal pain: Qualifiers: Abdominal location: generalized Qualified Code(s): R10.84 - Generalized abdominal pain Code(s): R10.9 - Unspecified abdominal pain Status: Acute Assessment and Plan: - diffuse abdominal pain with no associated N/V/D or constipation, has jelly like stool today - CT abd/pelvis w/o con showed cirrhosis of the liver, small pericardial effusion, and cholelithiasis RESOLVED. (3) Diabetes: Qualifiers: Diabetes mellitus complication status: without complication Diabetes mellitus correction insulin use: without superintendent container terminal use Diabetes mellitus type: type 2 Qualified Code(s): E11.9 - Type 2 diabetes mellitus without complications Code(s): E11.9 - Type 2 diabetes mellitus without complications Status: Acute Assessment and Plan: - hypoglycemia protocol - POC blood glucose ACHS - home medication: Hold home sliding scale and metformin - correct regimen ordered - high dose TIDWM, on steroids - A1C 6.8% -blood sugars are elevated in the 300s today secondary to steroids -will add on Lantus 15 units Plan Patient here from [facility] for ongoing shortness of breath. CXR largely unchanged from previous in June of 2023. Will treat as COPD exacerbation. Steroids IVP, nebs q 4, and supportive care. Her primidone dose was also increased for her essential tremor. Diet: Diabetic GI Prophylaxis: not currently indicated DVT Prophylaxis: SCDs Lines: peripheral Code Status: full code Subjective Date/time seen: 10/31/23 06:53 Interval history: 72 y/o F presents here with shortness of breath with PMH of DM depression/anxiety, and COPD. 10/28: No acute events overnight. Patient states that her breathing is improved since coming to the hospital. She does not appear in acute distress and is on her baseline 2 L. she says that when she 1st came in she was having expiratory wheezing which is improving. She also reports increased sputum production and headache. Her appetite has been poor over the last 4-5 days but this morning she was having a 2nd breakfast. Last bowel movement yesterday. She reports her abdominal pain is better. She is also concerned about an essential upper extremity tremor. She states that she has talked to her primary care provider about this and they told her it was not related to Parkinson's. She is unsure if she is been trialed on medications. Chart review shows she is already on primidone, gabapentin. 10/29:No acute events overnight. Patient is resting in bed with congested cough which sounds worse today. She feels like her cough is worse today but still non-productive. She remains on her baseline oxygen settings of 2 L NC. 10/30: No acute events overnight. Since restarting IV steroids she says that her breathing is better. She was also started on PAP therapy which she feels has helped but she is not coughing anything up. When I see her today she i
[2023-10-31 07:55] LABS: Glucose Point of Care 216 mg/dl (65-105)
[2023-10-31] MEDS: guaiFENesin 12 HR 600 MG TABCR 1200 MG PO ×2 (09:14→21:10)
[2023-10-31] MEDS: MEMANTINE 10 MG TABLET PO ×2 (09:14→17:17)
[2023-10-31] MEDS: PRIMIDONE 50 MG TABLET PO ×2 (09:14→17:17)
[2023-10-31] MEDS: PANTOPRAZOLE 40 MG TABLET PO ×2 (09:14→21:11)
[2023-10-31] MEDS: ARIPiprazole 2 MG TABLET PO (09:15)
[2023-10-31] MEDS: ARIPiprazole 5 MG TABLET PO (09:15)
[2023-10-31] MEDS: busPIRone HCL 10 MG TABLET PO ×3 (09:15→17:17)
[2023-10-31] MEDS: ESCITALOPRAM OXALATE 10 MG TABLET 20 MG PO (09:15)
[2023-10-31] MEDS: PRIMIDONE 25 MG TABLET PO ×2 (09:15→17:17)
[2023-10-31] MEDS: FERROUS SULFATE 325 MG TABLET DR PO (09:16)
[2023-10-31] MEDS: TAMOXIFEN CITRATE (*CHEMO) 10 MG TABLET 20 MG PO (09:16)
[2023-10-31] MEDS: CHOLECALCIFEROL 1,000 UNITS TABLET 1000 UNITS PO (09:16)
[2023-10-31] MEDS: INSULIN ASPART (*BKC) 100 UNITS/ML SUB-Q ×3 (09:16→17:17)
[2023-10-31] MEDS: traMADol HCL (*CRX) 50 MG TABLET PO ×4 (09:16→21:18)
[2023-10-31] MEDS: FUROSEMIDE 40 MG TABLET PO (09:16)
[2023-10-31 11:56] LABS: Glucose Point of Care 353 mg/dl (65-105)
[2023-10-31] MEDS: AZITHROMYCIN 500 MG/NS 250 ML 500 MG/250 ML BAG 250 MG IVPB (12:19)
[2023-10-31 17:05] LABS: Glucose Point of Care 247 mg/dl (65-105)
[2023-10-31] MEDS: LORazepam (*CRX) 0.5 MG TABLET PO (21:11)
[2023-10-31] MEDS: rOPINIRole HCL 0.5 MG TABLET PO (21:11)
[2023-10-31] MEDS: traZODone HCL 50 MG TABLET PO (21:12)
[2023-10-31] MEDS: BENZOCAINE/MENTHOL (*BKC) 18 EA LOZENGE 1 LOZENGE PO (21:19)
[2023-10-31] MEDS: INSULIN GLARGINE (*BKC) 100 UNITS/ML 15 UNITS SUB-Q (21:20)
[2023-10-31 21:36] LABS: Glucose Point of Care 345 mg/dl (65-105)
[2023-10-31 23:25] LABS: Glucose Point of Care 304 mg/dl (65-105)
[2023-10-31] MEDS: INSULIN ASPART (*BKC) 100 UNITS/ML 6 UNITS SUB-Q (23:46)
[2023-11-01] MEDS: LEVALBUTEROL NEB 1.25 MG/3 ML INHALATION ×2 (01:21→08:28)
[2023-11-01] MEDS: IPRATROPIUM BR 0.02% INH SOLN 0.5 MG/2.5 ML VIAL INHALATION ×2 (01:21→08:28)
[2023-11-01 01:22] VITALS: PULSE 70; RESP 18
[2023-11-01 01:35] VITALS: PULSE 73; RESP 18
[2023-11-01 02:17] LABS: Glucose Point of Care 245 mg/dl (65-105)
[2023-11-01 04:40] VITALS: BP 106/63; PULSE 63; RESP 20; TEMP 36.6; O2SAT 97
[2023-11-01 04:46] LABS: Basophils Percent Auto 0.1 % (0.2-1.2); Hematocrit 38.9 % (37.0-47.0); Hemoglobin 12.2 g/dL (12.0-15.0); Immature Granulocyte Absolute 0.08 K/mm3 (0.00-0.031); Immature Granulocyte Percent A 0.8 % (0-0.5); Lymphocytes Absolute Auto 0.92 K/mm3 (0.9-3.2); Lymphocytes Percent Auto 9.3 % (18.3-44.2); Mean Corpuscular HGB Conc 31.4 g/dl (32-36); Mean Corpuscular Hemoglobin 30.7 pg (26-34); Mean Corpuscular Volume 97.7 fl (80-100); Mean Platelet Volume 10.9 fl (7.4-10.4); Monocytes Absolute Auto 0.4 K/mm3 (0.1-0.6); Monocytes Percent Auto 4.4 % (2.6-8.5); Neutrophils Absolute Auto 8.4 K/mm3 (1.3-6.7); Neutrophils Percent Auto 85.4 % (45.5-73.1); Platelet Count Result 190 k/mm3 (150-375); Red Blood Count 3.98 M/mm3 (4.2-5.4); White Blood Count 9.9 K/mm3 (4.5-10.0)
[2023-11-01 05:04] LABS: Alanine Aminotransferase 42 U/L (6-35); Albumin Level 3.6 g/dL (3.5-5.1); Alkaline Phosphatase 98 U/L (38-126); Anion Gap 9 mmol/L (4-12); Aspartate Amino Transferase 52 U/L (14-36); Bilirubin,Total 0.4 mg/dL (0.2-1.3); Blood Urea Nitrogen 23 mg/dL (7-17); Calcium 8.6 mg/dL (8.4-10.2); Carbon Dioxide 30 mmol/L (22-30); Chloride 100 mmol/L (98-107); Estimated CRCL calculation 87 ml/min; Estimated Glomerular Filt Rate > 60; Glucose 239 mg/dL (65-110); Potassium 5.1 mmol/L (3.4-5.0); Sodium 139 mmol/L (137-145)
[2023-11-01] MEDS: GABAPENTIN 300 MG CAPSULE 600 MG PO ×2 (05:53→13:07)
[2023-11-01] MEDS: methylPREDNISolone SOD SUCC 40 MG VIAL IV PUSH (05:54)
--- NOTE | 2023-11-01 06:54 | PM.IMPN ---
Progress Note: A&P Assessment and Plan (1) Shortness of breath: Code(s): R06.02 - Shortness of breath Status: Acute Assessment and Plan: - CXR: Atelectatic changes in the right middle lobe area. Pneumonia cannot be excluded. No change from previous examination. - troponin negative, ekg showed sinus rhythm with rate of 79, low QRS voltage in precordial leads, borderline ST-T-wave abnormality high lateral leads, baseline artifact. No significant changes when compared to previous. - BNP: 145 - Viral PCR: negative - sputum culture, if obtainable - requiring home/baseline supplemental O2:2L NC - Levalbuterol and Atrovent increased to Q 4 hours -added incentive spirometer - steroids: Solu-Medrol 125 mg IVP in the ED. Was started on prednisone but given her lack of improvement will transition back to solu-medrol 40 mg IVP Q 6 hours. - started on ceftriaxone and azithromycin on 10/27 -add Mucinex b.i.d. - supportive care: lozenge prn, tylenol prn (2) Abdominal pain: Qualifiers: Abdominal location: generalized Qualified Code(s): R10.84 - Generalized abdominal pain Code(s): R10.9 - Unspecified abdominal pain Status: Acute Assessment and Plan: - diffuse abdominal pain with no associated N/V/D or constipation, has jelly like stool today - CT abd/pelvis w/o con showed cirrhosis of the liver, small pericardial effusion, and cholelithiasis RESOLVED. 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 halfway use Diabetes mellitus complication status: without complication Qualified Code(s): E11.9 - Type 2 diabetes mellitus without complications Code(s): E11.9 - Type 2 diabetes mellitus without complications Status: Acute Assessment and Plan: - hypoglycemia protocol - POC blood glucose ACHS - home medication: Hold home sliding scale and metformin - correct regimen ordered - high dose TIDWM, on steroids - A1C 6.8% -blood sugars are elevated in the 300s today secondary to steroids -Lantus increased to 20 units HS Plan Patient here from [facility] for ongoing shortness of breath. CXR largely unchanged from previous in June of 2023. Will treat as COPD exacerbation. Steroids IVP, nebs q 4, and supportive care. Her primidone dose was also increased for her essential tremor. Diet: Diabetic GI Prophylaxis: not currently indicated DVT Prophylaxis: SCDs Lines: peripheral Code Status: full code Subjective Date/time seen: 11/01/23 06:54 Interval history: 72 y/o F presents here with shortness of breath with PMH of DM depression/anxiety, and COPD. 10/28: No acute events overnight. Patient states that her breathing is improved since coming to the hospital. She does not appear in acute distress and is on her baseline 2 L. she says that when she 1st came in she was having expiratory wheezing which is improving. She also reports increased sputum production and headache. Her appetite has been poor over the last 4-5 days but this morning she was having a 2nd breakfast. Last bowel movement yesterday. She reports her abdominal pain is better. She is also concerned about an essential upper extremity tremor. She states that she has talked to her primary care provider about this and they told her it was not related to Parkinson's. She is unsure if she is been trialed on medications. Chart review shows she is already on primidone, gabapentin. 10/29:No acute events overnight. Patient is resting in bed with congested cough which sounds worse today. She feels like her cough is worse today but still non-productive. She remains on her baseline oxygen settings of 2 L NC. 10/30: No acute events overnight. Since restarting IV steroids she says that her breathing is better. She was also started on PAP therapy which she feels has helped but she is not coughing anything up. When I see her today
[2023-11-01 08:24] LABS: Glucose Point of Care 215 mg/dl (65-105)
[2023-11-01 08:30] VITALS: PULSE 83; RESP 16; RESP 20; O2SAT 94
[2023-11-01] MEDS: FERROUS SULFATE 325 MG TABLET DR PO (08:37)
[2023-11-01] MEDS: PRIMIDONE 25 MG TABLET PO (08:38)
[2023-11-01] MEDS: guaiFENesin 12 HR 600 MG TABCR 1200 MG PO (08:38)
[2023-11-01] MEDS: CHOLECALCIFEROL 1,000 UNITS TABLET 1000 UNITS PO (08:38)
[2023-11-01] MEDS: ARIPiprazole 5 MG TABLET PO (08:38)
[2023-11-01] MEDS: PRIMIDONE 50 MG TABLET PO (08:38)
[2023-11-01] MEDS: PANTOPRAZOLE 40 MG TABLET PO (08:38)
[2023-11-01] MEDS: FUROSEMIDE 40 MG TABLET PO (08:38)
[2023-11-01] MEDS: busPIRone HCL 10 MG TABLET PO ×2 (08:39→13:08)
[2023-11-01] MEDS: ESCITALOPRAM OXALATE 10 MG TABLET 20 MG PO (08:39)
[2023-11-01] MEDS: MEMANTINE 10 MG TABLET PO (08:39)
[2023-11-01] MEDS: TAMOXIFEN CITRATE (*CHEMO) 10 MG TABLET 20 MG PO (08:39)
[2023-11-01] MEDS: ARIPiprazole 2 MG TABLET PO (08:39)
[2023-11-01] MEDS: traMADol HCL (*CRX) 50 MG TABLET PO ×2 (08:39→13:08)
[2023-11-01 08:40] VITALS: O2SAT 94
[2023-11-01] MEDS: INSULIN ASPART (*BKC) 100 UNITS/ML SUB-Q ×2 (08:40→12:06)
[2023-11-01 11:25] LABS: SARS-CoV-2 RNA PCR Negative (Negative)
[2023-11-01 11:55] LABS: Glucose Point of Care 308 mg/dl (65-105)
[2023-11-01] MEDS: polyethylene glycoL 3350 17 GM POWD.PACK PO (12:05)
--- NOTE | 2023-11-01 12:56 | PM.DS ---
DS: Admitting Diagnosis Discharge Date 10/31 Admitting Diagnosis shortness of breath DS: Discharge Diagnosis Discharge Diagnosis (1) Shortness of breath: Code(s): R06.02 - Shortness of breath Status: Acute (2) Abdominal pain: Qualifiers: Abdominal location: generalized Qualified Code(s): R10.84 - Generalized abdominal pain Code(s): R10.9 - Unspecified abdominal pain Status: Acute (3) Diabetes: Qualifiers: Diabetes mellitus type: type 2 Diabetes mellitus [facility] insulin use: without superintendent terminal use Diabetes mellitus complication status: without complication Qualified Code(s): E11.9 - Type 2 diabetes mellitus without complications Code(s): E11.9 - Type 2 diabetes mellitus without complications Status: Acute DS: Summary Hospital Course Reason for hospitalization: COPD exacerbation with possible superimposed pneumonia Hospital Course: 72-year-old female with past medical history significant for chronic respiratory failure on 2 L nasal cannula, DM, depression, anxiety, and essential tremor who presented with complaints of congestion, increased shortness of breath, and generalized fatigue. She was treated as a COPD exacerbation with superimposed pneumonia. She improved with antibiotics, steroids, and neb treatments. Overall did well and was discharged back to her facility in stable condition. Time Spent with Patient Time attestation: Total time spent providing and/or coordinating discharge services: 75 Exam Narrative: General: Chronically ill-appearing, appears stated age. HEENT: normocephalic, atraumatic. Mucous membranes moist. EOMI, PERRLA, bilateral sclera anicteric, no conjunctival injection. Neck supple without JVD, lymphadenopathy, or bruit. Respiratory: Course on auscultation bilaterally with less rhonchi. No rales/- expiratory wheezes. Cardiovascular: Regular rate and rhythm, normal S1-S2 upon auscultation. No murmurs, rubs, or clicks. PMI is nondisplaced, capillary refill less than 3 second. Abdomen: Soft, round, no pulsatile masses, nondistended and nontender. No rebound, no guarding. No CVA tenderness, no hepatosplenomegaly. Bowel sounds present to all four quadrants. No high pitch or tinkling sounds, resonant to percussion. Extremities: No cyanosis, clubbing. Dependent edema. Pulses are palpable 2/2. Limited movement to BLE with foot drop. Upper extremities with moderate essential tremor noted with activity, absent at rest. Neuro: Alert and orientated x 4. PERRLA. Cranial nerves 2-12 intact without focal deficit. Skin: Warm, dry, and intact, without rash, erythema, or lesion. Lines: PIV Incisions: Psych: pleasant, cooperative, normal speech, normal affect, no hallucinations, no dysarthria DS: Data Data Completed and Pending Labs on day of discharge: Labs from last 24 hours 11/01/23 11/01/23 11/01/23 11:48 10:44 08:06 WBC RBC Hgb Hct MCV MCH MCHC RDW Plt Count MPV Immature Gran % (Auto) Neut % (Auto) Lymph % (Auto) [place] % (Auto) Eos % (Auto) Baso % (Auto) Lymph # (Auto) [place] # (Auto) Eos # (Auto) Baso # (Auto) Abs Immat Gran (auto) Absolute Neuts (auto) Absolute Nucleated RBC Nucleated RBC % Sodium Potassium Chloride Carbon Dioxide Anion Gap BUN Creatinine Estim Creat Clear Calc Estimated GFR Glucose POC Capillary Glucose 308 H 215 H Calcium Total Bilirubin AST ALT Alkaline Phosphatase Total Protein Albumin SARS-CoV-2 RNA (RT-PCR) Negative 11/01/23 11/01/23 10/31/23 03:58 02:13 23:22 WBC 9.9 RBC 3.98 L Hgb 12.2 Hct 38.9 MCV 97.7 MCH 30.7 MCHC 31.4 L RDW 15.0 H Plt Count 190 MPV 10.9 H Immature Gran % (Auto) 0.8 H Neut % (Auto) 85.4 H Lymph % (Auto) 9.3 L [place] % (Auto) 4.4 Eos % (Auto) 0.0 Baso % (Auto) 0.1 L Lymph
== END 2023-11-01 13:40 | DRG 190 ==
LOC: ANHED 10:06 → ANH2MED 13:23
PROVIDERS: Student in an Organized Health Care Education/Training Program; Admitting Provider Family Medicine; Emergency Provider Student in an Organized Health Care Education/Training Program; PCP Hospitalist; Visit Provider Nurse Practitioner Acute Care
DX: J44.1 Chronic obstructive pulmonary disease with (acute) exacerbation (principal); J18.9 Pneumonia, unspecified organism; J44.0 Chronic obstructive pulmonary disease with (acute) lower respiratory infection; E11.9 Type 2 diabetes mellitus without complications; R10.9 Unspecified abdominal pain; R25.1 Tremor, unspecified; Z20.822 Contact with and (suspected) exposure to COVID-19; Z11.52 Encounter for screening for COVID-19; Z74.01 Bed confinement status; Z99.81 Dependence on supplemental oxygen
CPT/HCPCS: 36415; 71046; 74176; 80053; 82948; 83036; 83880; 84484; 85025; 87040; 87635; 87637; 93005; 94640; 94667; 96374; 99285; A9270; J0456; J0696; J1815; J2919; J7512

== ENCOUNTER 2024-01-10 22:49 | Inpatient (IN) | payer MEDICARE, MEDICAID, SELFPAY ==
[2024-01-10] VITALS (11 sets, daily range): BP systolic 85–165; BP diastolic 52–71; PULSE 117–191; RESP 15–27; TEMP 39.3; O2SAT 95–97
--- NOTE | ~2024-01-10 | CT_ITS ---
EXAMINATION: CT diagnostic chest wo con DATE: 01/11/2024 16:43 INDICATION: Sepsis ?PNA TECHNIQUE: Computed tomography (CT) of the chest was performed without intravenous contrast. Addition al 3D reconstructions utilizing coronal maximum intensity projection (MIP) were performed. Automated exposure control and iterative reconstruction technique were employed. The dose-length product was 84 3.29 mGy-cm. COMPARISON: CT dated 10/28/2023 FINDINGS: Severe upper lung predominant emphysema with large right upper lobe bulla occupying a significant por tion of the anteromedial right mid and upper hemithorax. Very small left pleural effusion. Dependent atelectasis in the bilateral lower lobes and minimally at the dependent bilateral upper lobes. No pne umonia, pulmonary edema or pneumothorax. Calcified right upper lobe nodule along with calcified right hilar and mediastinal lymph nodes consistent with old granulomatous disease. Cardiomegaly. Atheroscl erotic coronary artery calcification is. Small pericardial effusion. Thoracic aorta is normal in lulu jesu. No pathologically enlarged thoracic lymphadenopathy. 5.3 x 3.2 cm low density right adrenal solomon danielle measuring -2 HU. There is liver surface nodularity consistent with cirrhosis. Old healed proximal left humeral fracture deformity. Chronic L1 burst fracture without change since C T of the abdomen and pelvis dated 10/28/2023. There is a chronic T12 compression fracture but with new linear band of sclerosis extending across the vertebral body and slight increase in one third centra l vertebral body height loss. Additional chronic T2 compression fracture without evident change since chest radiograph dated 07/05/2023. The left internal jugular central venous port catheter with distal tip at the cephalad superior vena cava. IMPRESSION: 1. Emphysema with very small left pleural effusion and mild dependent atelectasis in both lungs. No e vident pneumonia. 2. Cardiomegaly with unchanged small pericardial effusion. 3. Cirrhosis. 4. Recent minimal interval progression of a T12 compression fracture with sclerotic recent appearing linear fracture line extends across the vertebral body new since CT from 2 months prior. Reviewed, dictated and finalized at location A. IMPRESSION: 1. Emphysema with very small left pleural effusion and mild dependent atelectas is in both lungs. No evident pneumonia. 2. Cardiomegaly with unchanged small pericardial effusion. 3. Cirrhosis. 4. Recent minimal interval progression of a T12 compression fracture with scler otic recent appearing linear fracture line extends across the vertebral body ne w since CT from 2 months prior.
--- NOTE | ~2024-01-10 | XR_ITS ---
Portable chest x-ray Comparison: 10/28/2023 Clinical History: STEMI Findings: Left-sided Mediport is unchanged. Stable calcified right upper lobe granuloma. There is in creased density in the left suprahilar region, however this is similar to prior exam. Probable underl marcin COPD or chronic interstitial disease. Cardiomediastinal silhouette is stable. Bones and soft ti ssues are unremarkable. Impression: Abnormal density in the left suprahilar region, which is similar to prior exam. Consider treated dise ase or underlying neoplasm, versus other chronic airspace opacity. Probable COPD and/or other chronic interstitial disease. Left-sided Mediport. Stable calcified right upper lobe granuloma. Reviewed, dictated and finalized at location . Impression: Abnormal density in the left suprahilar region, which is similar to prior exam. Consider treated disease or underlying neoplasm, versus other chronic airspace opacity. Probable COPD and/or other chronic interstitial disease. Left-sided Mediport. Stable calcified right upper lobe granuloma.
--- NOTE | ~2024-01-10 | XR_ITS ---
EXAMINATION: XR chest 1V portable DATE: 01/11/2024 14:16 INDICATION: Sepsis. TECHNIQUE: A single frontal view of the chest was obtained. COMPARISON: Chest single view 01/10/2024, CT abdomen and pelvis 10/28/2023 FINDINGS: There are lucencies in right lung, consistent with emphysema. There is a diffuse interstiti al pattern in the lungs, consistent with mild pulmonary edema. A calcified right lung nodule is consi stent with old granulomatous disease. No pleural effusion or pneumothorax. The heart size is normal. There is a left internal jugular port with tip in superior vena cava. IMPRESSION: 1. Mild pulmonary edema. 2. Emphysema. Reviewed, dictated and finalized at location A.
--- NOTE | ~2024-01-10 | XR_ITS ---
Portable chest x-ray Comparison: 01/11/2024 Clinical History: Shortness of breath Findings: Left-sided Mediport is in satisfactory position. There is mild asymmetric haziness in the left lung, unchanged. No definite pleural effusions. Cardiomediastinal silhouette is stable. Bones a nd soft tissues are unremarkable. Impression: Mild asymmetric haziness left lung is similar to prior exam. Possible COPD. Left-sided Mediport. Reviewed, dictated and finalized at location M. Impression: Mild asymmetric haziness left lung is similar to prior exam. Possible COPD. Left-sided Mediport.
--- NOTE | 2024-01-10 22:50 | ECG_ITS ---
Test Date: 2024-01-10 22:53:04 Measurements Intervals [place] Rate: 192 P: 0 IL: 0 QRS: -29 QRSD: 107 T: 161 QT: 240 QTc: 429 Interpretive Statements SUPRAVENTRICULAR TACHYCARDIA LOW QRS VOLTAGE IN PRECORDIAL LEADS NONSPECIFIC ST & T-WAVE ABNORMALITY- DIFFUSE LEADS BASELINE WANDER- AVL, AVF, V2-V6 ABNORMAL ECG Compared to ECG 10/28/2023 08:11:11 SUPRAVENTRICULAR TACHYCARDIA NOW PRESENT Electronically Signed On 01-11-2024 06:24:16 CDT by Rm Bishop D.O.
--- NOTE | 2024-01-10 22:57 | ECG_ITS ---
Test Date: 2024-01-10 22:58:58 Measurements Intervals [place] Rate: 122 P: 65 IA: 156 QRS: -16 QRSD: 100 T: 175 QT: 345 QTc: 493 Interpretive Statements SINUS TACHYCARDIA ATRIAL TRIPLET LOW QRS VOLTAGE IN PRECORDIAL LEADS BORDERLINE R WAVE PROGRESSION, ANTERIOR LEADS ST-T WAVE ABNORMALITY IN LAT/HIGH LAT LEADS- CONSIDER ISCHEMIA BASELINE ARTIFACT- I, II, III, AVR, AVL, AVF, V1-V6 ABNORMAL ECG Compared to ECG 01/10/2024 22:53:04 Possible ischemia now present Supraventricular tachycardia no longer present Electronically Signed On 01-11-2024 09:35:47 CDT by Rm Bishop D.O.
[2024-01-10 23:24] LABS: Basophils Absolute Auto 0.1 K/mm3 (0.0-0.1); Basophils Percent Auto 0.3 % (0.2-1.2); Hematocrit 44.4 % (37.0-47.0); Hemoglobin 14.5 g/dL (12.0-15.0); Immature Granulocyte Absolute 0.11 K/mm3 (0.00-0.031); Immature Granulocyte Percent A 0.6 % (0-0.5); Lymphocytes Absolute Auto 0.77 K/mm3 (0.9-3.2); Lymphocytes Percent Auto 4.2 % (18.3-44.2); Mean Corpuscular HGB Conc 32.7 g/dl (32-36); Mean Corpuscular Hemoglobin 30.9 pg (26-34); Mean Corpuscular Volume 94.5 fl (80-100); Mean Platelet Volume 10.4 fl (7.4-10.4); Monocytes Absolute Auto 0.9 K/mm3 (0.1-0.6); Neutrophils Absolute Auto 16.4 K/mm3 (1.3-6.7); Neutrophils Percent Auto 89.9 % (45.5-73.1); Platelet Count Result 175 k/mm3 (150-375); White Blood Count 18.3 K/mm3 (4.5-10.0)
[2024-01-10] MEDS: SODIUM CHLORIDE 0.9% IV 1,000 ML 999 ML IV CONT ×3 (23:36)
[2024-01-10 23:37] LABS: INR 1.2; Prothrombin Time 15.6 Seconds (11.1-14.7)
[2024-01-10 23:38] LABS: Partial Thromboplastin Time 40.9 Seconds (22.3-36.8)
[2024-01-10 23:46] LABS: Alanine Aminotransferase 35 U/L (6-35); Albumin Level 3.9 g/dL (3.5-5.1); Alkaline Phosphatase 100 U/L (38-126); Anion Gap 11 mmol/L (4-12); Aspartate Amino Transferase 57 U/L (14-36); Bilirubin,Total 0.9 mg/dL (0.2-1.3); Blood Urea Nitrogen 24 mg/dL (7-17); Calcium 8.9 mg/dL (8.4-10.2); Carbon Dioxide 29 mmol/L (22-30); Chloride 94 mmol/L (98-107); Cholesterol 159 mg/dL (0-200); Estimated CRCL calculation 125 ml/min; Estimated Glomerular Filt Rate > 60; Glucose 225 mg/dL (65-110); HDL Direct 48 mg/dL; Potassium 3.5 mmol/L (3.4-5.0); Sodium 134 mmol/L (137-145); Triglycerides 129 mg/dL (<150)
[2024-01-10 23:46] LABS: Lactic Acid Reflex 2.9 mmol/L (0.7-2.0)
--- NOTE | 2024-01-10 23:49 | PC.NURSE ---
Patient cleaned up and brief changed. Patient had bed change as well. Patient was able to assist. Patient denies any pain.
[2024-01-10 23:57] LABS: LDL Cholesterol Direct 87 mg/dL
[2024-01-10 23:59] LABS: Influenza A QL RT-PCR Negative (Negative); Influenza B QL RT-PCR Negative (Negative); RSV RNA, RT-PCR Negative (Negative); SARS-CoV-2 RNA PCR Negative (Negative)
[2024-01-11] VITALS (48 sets, daily range): BP systolic 78–132; BP diastolic 57–91; PULSE 82–133; RESP 14–28; TEMP 36.3–38.6; O2SAT 92–100
--- NOTE | 2024-01-11 | ECHO_ITS ---
Patient Info Name: Marleni Mcgrath Age: 73 years : 1950 Gender: Female Ht: 67 in Wt: 275 lbs BSA: 2.49 m2 HR: 84 bpm BP: 112 / 73 mmHg Heart Rhythm: Indeterminant Technical Quality: Poor Exam Date: 01/11/2024 10:20 AM Exam Location: Echo Lab Patient Status: Inpatient Admit Date: 01/11/2024 Staff Ordering Physician: Ingris Swain MD Creping Machine Operator: Vargas Wyatt RDCS Attending Provider: Ingris Swain MD Referring Physician: Brynn SNYDER; Exam Type: CA echo dop color flow w con Study Info Indications - CHF Complete two-dimensional, color flow and Doppler transthoracic echocardiogram is performed with contrast to opacify the left ventricle and to improve the deliniation of the left ventricle endocardial borders. Reason for Poor Study: poor echocardiographic windows Summary 1. Normal left ventricular size with akinesis of the apical half of the left ventricle in all segments, pattern highly suggestive of takotsubo stress cardiomyopathy. 2. Global ejection fraction 35 %. 3. Small amount of tricuspid insufficiency, velocity predicts RV systolic pressure at 60 mmHg. 4. Definity contrast utilized to improve visualization. Left Ventricle Left ventricular chamber dimension is normal. Left ventricular systolic function is moderately reduced, estimated at 30-35%. The left ventricular diastolic function is grade I diastolic dysfunction. Right Ventricle Right ventricular chamber dimension is normal. Left Atria Left atrial chamber dimension is normal. Right Atria Right atrial chamber dimension is normal. Aortic Valve The aortic valve is trileaflet. There is mild aortic valve sclerosis. Pulmonic Valve The pulmonic valve is not well visualized. Mitral Valve The mitral valve has normal leaflets. Tricuspid Valve The tricuspid valve leaflets are not well visualized. Pericardium/Pleural The pericardium appears normal. Aorta The aortic root size at the sinus of Valsalva is normal. Left Ventricular Outflow Tract Name Value Normal LVOT Doppler LVOT Peak Gradient 6 mmHg LVOT Mean Gradient 4 mmHg LVOT VTI 26.77 cm LVOT VTI/AV VTI Ratio 0.74 Mitral Valve Name Value Normal MV Doppler MV Decel [place] 402.72 cm/s2 MV PHT 0 s MV Area (PHT) 4.38 cm2 4.00-5.00 MV Regurgitation Doppler MR Peak Gradient 83 mmHg MV Diastolic Function MV E Peak Velocity 69.81 cm/s MV A Peak Velocity 77.61 cm/s MV E/A 0.90 MV Decel Time 0 s MV Annular TDI MV E/e' (Septal)
[2024-01-11] MEDS: ACETAMINOPHEN 500 MG TABLET 1000 MG PO (00:05)
[2024-01-11 00:06] LABS: NT Pro B Type Natriuretic Pept 8600 pg/mL (19.9-100)
[2024-01-11 00:18] LABS: Add Urine Microscopic? YES; Appearance Urine Cloudy (Clear); Bacteria Urine 2+ /hpf; Bilirubin Urine Negative (Negative); Blood Urine 3+ (Negative); Color Urine Yellow (Yellow); Glucose Urine UA Trace mg/dL (Negative); Ketones Urine Trace mg/dL (Negative); Leukocyte Esterase Ur 2+ LEU/UL (Negative); Mucus Urine Present /lpf; Need Manual Microscopic Reviewed; Nitrate Urine Positive (Negative); Protein Urine 2+ mg/dL (Negative); Specific Grav Ur 1.025 (1.001-1.035); Squamous Epithelial Cell Urine Occasional /hpf (Few); WBC Urine >100 /hpf (0-3)
[2024-01-11] MEDS: ASPIRIN 81 MG CHEWABLE TABLET 324 MG PO (00:55)
--- NOTE | 2024-01-11 01:00 | ED.GENADULT ---
HPI - General Adult General Chief complaint: Altered Mental Status Stated complaint: STEMI, CODE SEPSIS Time Seen by Provider: 01/10/24 23:02 History of Present Illness HPI narrative: Patient is a 73-year-old female who presents emergency department with chief complaint of code sepsis and possible STEMI. EMS was called for not feeling well and the patient was found to be febrile tachycardic and EMS noted there to be ST elevation on the EKG the patient was activated as a pre-hospital ST-elevation CT and EKG was transmitted to our facility. The patient was not complaining of chest pain reports he does feels generally unwell the EKG was shown to cardiology who did not feel the patient required emergent cardiac catheterization and the STEMI alert was canceled Related Data Home Medications Medication Instructions Recorded Confirmed acetaminophen 650 mg tablet 650 mg PO TID 10/28/23 01/11/24 albuterol sulfate 90 mcg/actuation 2 puff inhalation Q4H PRN S.O.B 10/28/23 01/11/24 aerosol inhaler aripiprazole 2 mg tablet 2 mg PO DAILY 10/28/23 01/11/24 aripiprazole 5 mg tablet 5 mg PO DAILY 10/28/23 01/11/24 buspirone 10 mg tablet 10 mg PO TID 10/28/23 01/11/24 cholecalciferol (vitamin D3) 25 25 mcg PO DAILY 10/28/23 01/11/24 mcg (1,000 unit) capsule (Vitamin D3) escitalopram oxalate 10 mg tablet 20 mg PO DAILY 10/28/23 01/11/24 ferrous sulfate 325 mg (65 mg 325 mg PO DAILY 10/28/23 01/11/24 iron) tablet furosemide 40 mg tablet 40 mg PO DAILY 10/28/23 01/11/24 gabapentin 600 mg tablet 600 mg PO TID 10/28/23 01/11/24 insulin aspart U-100 100 unit/mL See Rx Instructions .Route .COMPLEX 10/28/23 01/11/24 (3 mL) subcutaneous pen lorazepam 0.5 mg tablet 0.5 mg PO QHS 10/28/23 01/11/24 memantine 10 mg tablet 10 mg PO BID 10/28/23 01/11/24 metformin 500 mg tablet 500 mg PO DAILY 10/28/23 01/11/24 primidone 50 mg tablet 50 mg PO BID 10/28/23 01/11/24 ropinirole 0.5 mg tablet 0.5 mg PO QHS 10/28/23 01/11/24 tamoxifen 20 mg tablet 20 mg PO DAILY 10/28/23 01/11/24 tramadol 50 mg tablet 50 mg PO QID 10/28/23 01/11/24 trazodone 50 mg tablet 50 mg PO QHS 10/28/23 01/11/24 aluminum-mag hydroxide-simethicone 5 ml PO Q6H PRN Heartburn 01/11/24 01/11/24 400 mg-400 mg-40 mg/5 mL oral susp (Maalox Maximum Strength) calcium carbonate 400 mg PO Q8H PRN Heartburn 01/11/24 01/11/24 cyanocobalamin (vitamin B-12) 250 250 mcg PO DAILY 01/11/24 01/11/24 mcg tablet guaifenesin 600 mg tablet,extended 600 mg PO BID 01/11/24 01/11/24 release ipratropium 0.5 mg-albuterol 3 mg 3 ml inhalation Q6H PRN 01/11/24 01/11/24 (2.5 mg base)/3 mL nebulization sob/wheezing soln magnesium hydroxide 2,400 mg/10 mL 30 ml PO DAILY PRN Constipation 01/11/24 01/11/24 oral suspension (Milk Of Magnesia Concentrated) multivitamin with minerals 1 tablet PO DAILY 01/11/24 01/11/24 (Multiple Vitamin-Minerals tablet) naloxone 4 mg/actuation nasal 1 spray intranasal Q2-3M PRN 01/11/24 01/11/24 spray (Narcan) Opiate Reversal ondansetron 4 mg disintegrating 4 mg PO Q8H PRN Nausea And Vomiting 01/11/24 01/11/24 tablet pantoprazole 40 mg tablet,delayed 40 mg PO QAM 01/11/24 01/11/24 release polyethylene glycol 3350 17 17 g PO HS PRN Constipation 01/11/24 01/11/24 gram/dose oral powder (Miralax) pyridoxine (vitamin B6) 25 mg 25 mg PO DAILY 01/11/24 01/11/24 tablet sennosides 8.6 mg tablet (senna) 8.6 mg PO BID 01/11/24 01/11/24 Allergies Allergy/AdvReac Type Severity Reaction Status Date / Time amoxicillin [From Augmentin] Allergy Unknown Verified 01/11/24 00:38 clavulanic acid Allergy Unknown Verified 01/11/24 00:38 [From Augmentin] Review of Systems Review of Systems: A 10 system review of systems was completed on the patient and is negative except for what is stated in the HPI. Nursing and ancillary documentation was reviewed. [facility] Past Medical History Medical History (Updated 01/11/24 @ 03:30 by Danial Emmanuel MD)
[2024-01-11] MEDS: AMIODARONE 150 MG/D5W 100 ML 150 MG/100 ML BAG 600 MG IV CONT (01:03)
[2024-01-11] MEDS: AMIODARONE 360 MG/D5W 200 ML 360 MG/200 ML BAG 33.33 MG IV CONT (01:23)
--- NOTE | 2024-01-11 01:33 | PC.NURSE ---
Amio administration has been verified by this RN and Paty Stephens RN.
--- NOTE | 2024-01-11 01:35 | PM.IMHP ---
H&P: HPI History of Present Illness Date/Time: 01/11/24 01:35 Chief Complaint: ams Narrative: This is a 73-year-old female long term resident patient with history of breast cancer status post bilateral mastectomy, congestive heart failure, peripheral neuropathy, insulin-dependent diabetes mellitus, morbid obesity, COPD. patient initially was brought to the emergency room after STEMI was activated via EMS Patient complained of chest pain. Cardiology was contacted and no need for emergent catheterization as patient has been found to have sepsis. at the time of my visit patient is obtunded unable to give any history. Preliminary workup was significant for troponin of 2.9, BNP 8600, a urinalysis was significant for greater than 100 WBCs per high-power field, patient tested negative for influenza type A influenza type B RSV and COVID Portable chest x-ray Comparison: 10/28/2023 Clinical History: STEMI Findings: Left-sided Mediport is unchanged. Stable calcified right upper lobe granuloma. There is increased density in the left suprahilar region, however this is similar to prior exam. Probable underlying COPD or chronic interstitial disease. Cardiomediastinal silhouette is stable. Bones and soft tissues are unremarkable. Impression: Abnormal density in the left suprahilar region, which is similar to prior exam. Consider treated disease or underlying neoplasm, versus other chronic airspace opacity. Probable COPD and/or other chronic interstitial disease. Left-sided Mediport. Stable calcified right upper lobe granuloma. EXAMINATION: CT diagnostic chest wo con DATE: 01/11/2024 16:43 INDICATION: Sepsis ?PNA TECHNIQUE: Computed tomography (CT) of the chest was performed without intravenous contrast. Additional 3D reconstructions utilizing coronal maximum intensity projection (MIP) were performed. Automated exposure control and iterative reconstruction technique were employed. The dose-length product was 843.29 mGy-cm. COMPARISON: CT dated 10/28/2023 FINDINGS: Severe upper lung predominant emphysema with large right upper lobe bulla occupying a significant portion of the anteromedial right mid and upper hemithorax. Very small left pleural effusion. Dependent atelectasis in the bilateral lower lobes and minimally at the dependent bilateral upper lobes. No pneumonia, pulmonary edema or pneumothorax. Calcified right upper lobe nodule along with calcified right hilar and mediastinal lymph nodes consistent with old granulomatous disease. Cardiomegaly. Atherosclerotic coronary artery calcification is. Small pericardial effusion. Thoracic aorta is normal in caliber. No pathologically enlarged thoracic lymphadenopathy. 5.3 x 3.2 cm low density right adrenal adenoma measuring -2 HU. There is liver surface nodularity consistent with cirrhosis. Old healed proximal left humeral fracture deformity. Chronic L1 burst fracture without change since CT of the abdomen and pelvis dated 10/28/2023. There is a chronic T12 compression fracture but with new linear band of sclerosis extending across the vertebral body and slight increase in one third central vertebral body height loss. Additional chronic T2 compression fracture without evident change since chest radiograph dated 07/05/2023. The left internal jugular central venous port catheter with distal tip at the cephalad superior vena cava. IMPRESSION: 1. Emphysema with very small left pleural effusion and mild dependent atelectasis in both lungs. No evident pneumonia. 2. Cardiomegaly with unchanged small pericardial effusion. 3. Cirrhosis. 4. Recent minimal interval progression of a T12 compression fracture with sclerotic recent appearing linear fracture line extends across the vertebral body new since CT from 2 months prior. Review of Systems Review of Systems: ROS unobtainable: Yes unobtainable due to mental status ( obtunded/lethargy) [facility] Past Medical History Medical History (Updated 01/11
[2024-01-11 02:21] LABS: Reflex Lactic Acid Yes or No Add Lactic
--- NOTE | 2024-01-11 02:33 | ECG_ITS ---
Test Date: 2024-01-11 02:49:13 Measurements Intervals [place] Rate: 94 P: 97 NE: 161 QRS: -12 QRSD: 90 T: 250 QT: 393 QTc: 493 Interpretive Statements SINUS RHYTHM LOW QRS VOLTAGE IN PRECORDIAL LEADS ST-T WAVE ABNORMALITY IN ANTEROLAT/INF LEADS- CONSIDER ISCHEMIA BASELINE WANDER- I, II, III, V3-V4 ABNORMAL ECG Compared to ECG 01/10/2024 22:53:04 SIN[address]M NOW PRESENT ST-T WAVE ABNORMALITY, CONSIDER ISCHEMIA NOW PRESENT Electronically Signed On 01-11-2024 06:27:46 CDT by Rm Bishop D.O.
[2024-01-11] MEDS: ENOXAPARIN 100 MG/ML SYRINGE SUB-Q ×2 (03:03→18:22)
[2024-01-11 03:21] LABS: Lactic Acid 1.6 mmol/L (0.7-2.0)
[2024-01-11] MEDS: CEFEPIME 2 GM/NS 50 ML 2 GM/50 ML BAG IVPB ×2 (03:51→17:23)
--- NOTE | 2024-01-11 04:04 | PC.NURSE ---
040 Brandan, patients caregiver from [place] calls to get update, this RN informed her of admitting diagnosis for patient.
--- NOTE | 2024-01-11 04:43 | ADMGEN ---
This patient, Marleni Mcgrath, was admitted to IMU Room 200-01. Patient/family oriented to hospital policies and general routines including ID bracelet, bed and alarms, visiting hours, pain management, procedures, bathroom and other care routines, personal items, smoking policy, room service/diet, and visiting hours. Information on how to activate the Rapid Response Team has been discussed. Patient/Family are encouraged to report perceived risks to care and to ask questions if they do not understand what they are told or what they should do.
[2024-01-11] MEDS: AZITHROMYCIN 500 MG/NS 250 ML 500 MG/250 ML BAG 250 MG IVPB (04:47)
[2024-01-11] MEDS: VANCOMYCIN 1,250 MG/NS 250 ML 1,250 MG/250 ML BAG 166.67 MG IVPB ×2 (06:02→07:18)
[2024-01-11] MEDS: AMIODARONE 360 MG/D5W 200 ML 360 MG/200 ML BAG 16.67 MG IV CONT (07:11)
[2024-01-11] MEDS: MICONAZOLE NITRATE 2% CREAM 30 GM TUBE 1 APPLIC TOPICAL (08:17)
[2024-01-11] MEDS: ASPIRIN 81 MG CHEWABLE TABLET PO (08:17)
[2024-01-11 08:25] LABS: Alanine Aminotransferase 27 U/L (6-35); Albumin Level 3.1 g/dL (3.5-5.1); Alkaline Phosphatase 72 U/L (38-126); Anion Gap 6 mmol/L (4-12); Aspartate Amino Transferase 49 U/L (14-36); Bilirubin,Total 0.5 mg/dL (0.2-1.3); Blood Urea Nitrogen 20 mg/dL (7-17); Calcium 7.4 mg/dL (8.4-10.2); Carbon Dioxide 28 mmol/L (22-30); Chloride 100 mmol/L (98-107); Estimated CRCL calculation 87 ml/min; Estimated Glomerular Filt Rate > 60; Glucose 274 mg/dL (65-110); Magnesium 1.7 mg/dL (1.6-2.3); Potassium 3.5 mmol/L (3.4-5.0); Sodium 134 mmol/L (137-145)
[2024-01-11 08:31] LABS: Basophils Percent Auto 0.3 % (0.2-1.2); Eosinophils Percent Auto 0.1 % (0-4.4); Hematocrit 41.4 % (37.0-47.0); Hemoglobin 13.3 g/dL (12.0-15.0); Immature Granulocyte Absolute 0.08 K/mm3 (0.00-0.031); Immature Granulocyte Percent A 0.6 % (0-0.5); Lymphocytes Absolute Auto 1.74 K/mm3 (0.9-3.2); Lymphocytes Percent Auto 12.2 % (18.3-44.2); Mean Corpuscular HGB Conc 32.1 g/dl (32-36); Mean Corpuscular Hemoglobin 31.1 pg (26-34); Mean Platelet Volume 10.4 fl (7.4-10.4); Monocytes Absolute Auto 1.1 K/mm3 (0.1-0.6); Monocytes Percent Auto 7.5 % (2.6-8.5); Neutrophils Absolute Auto 11.3 K/mm3 (1.3-6.7); Neutrophils Percent Auto 79.3 % (45.5-73.1); Platelet Count Result 156 k/mm3 (150-375); Red Blood Count 4.27 M/mm3 (4.2-5.4); Red Cell Distribution Width 14.2 % (11.5-14.5); White Blood Count 14.3 K/mm3 (4.5-10.0)
[2024-01-11] MEDS: PERFLUTREN LIPID MICROSPHERES 1.5 ML VIAL DILUTED TO 10 ML TOTAL VOLUME IV PUSH (10:05)
--- NOTE | 2024-01-11 12:21 | IVDEFINITY ---
Prior to administration of IV Definity the patient was educated on the risks and benefits of the imaging enhancing agent including potential adverse side effects. The patient verbalized understanding. Allergies were verified. No exclusion criteria were identified and at least one of the following inclusion criteria were met: 1) physician request, 2) patient technically difficult to image (per the [place] [employer] guidelines of two or more segments not discernable within the apical view), or 3) questionable left ventricular function. ?
[2024-01-11 13:41] LABS: Glucose Point of Care 331 mg/dl (65-105)
--- NOTE | 2024-01-11 14:04 | PM.IMPN ---
Progress Note: A&P Assessment and Plan (1) Sepsis: Code(s): A41.9 - Sepsis, unspecified organism Status: Acute Assessment and Plan: Continue IVF ON Cefepime, Azithromycin and Vanc MRSA pending, blood and urine cultures CXR showed no new infiltrates CT chest ordered continue on IMU (2) Acute UTI: Code(s): N39.0 - Urinary tract infection, site not specified Status: Acute Assessment and Plan: Urine culture pending continue Monitoring culture (3) Elevated troponin: Code(s): R79.89 - Other specified abnormal findings of blood chemistry Status: Acute Assessment and Plan: Troponin trending down from 2.4 to 1.72 Likely demand from sepsis Continue full dose Lovenox, Aspirin and await cardiology eval ECHO pending (4) COPD (chronic obstructive pulmonary disease): Code(s): J44.9 - Chronic obstructive pulmonary disease, unspecified Status: Acute Assessment and Plan: BREATHING TREATMENTS and continue home Prednisone to avoid adrenal crisis (5) Atrial fibrillation: Code(s): I48.91 - Unspecified atrial fibrillation Status: Acute Assessment and Plan: Continue Amiodarone and defer to cardiology eval continue full dose lovenox (6) AMS (altered mental status): Code(s): R41.82 - Altered mental status, unspecified Status: Acute Assessment and Plan: resolved Patient is alert and oriented at the time of this encounter Plan DVT prophylaxis on full dose lovenox Subjective Date/time seen: 01/11/24 14:04 Interval history: patient having tremors at bedside last fever 102.8 at 2200 patient noted she is bed bound Review of Systems Review of Systems: ROS unobtainable: Yes unobtainable due to mental status ( obtunded/lethargy) Exam Narrative: General: alert and comfortable Eyes: EOMI, PERRLA ENNT External ears normal, Neck is supple, no masses, Respiratory systems: Clear to auscultation Cardiovascular S1, S2, normal rhythm, no murmur, rub, or gallop; no thrill or palpable murmurs on palpation. Gastrointestinal: soft, non-tender, and non-distended abdomen with no masses; BS present Skin: no rash, lesions, ulcerations, subcutaneous nodules or induration Musculoskeletal: no abnormality and no tenderness, normal ROM Neurologic: Alert and oriented x3, non focal Mental Status Exam: normal affect Objective Data Vital Signs Vital Signs: Vital Signs - 24 hr 01/10/24 22:48 01/10/24 22:52 01/10/24 22:56 Temperature 102.8 F H Pulse Rate 157 H 190 H 118 H Respiratory Rate 22 H 27 H Blood Pressure 165/71 H 165/71 H Pulse Oximetry 96 96 Oxygen Delivery Nasal Cannula Oxygen Flow Rate 3 Fraction of Inspired Oxygen 01/10/24 23:04 01/10/24 23:05 01/10/24 22:57 Temperature Pulse Rate 118 H 122 H Respiratory Rate 20 Blood Pressure Pulse Oximetry 96 97 Oxygen Delivery Nasal Cannula Oxygen Flow Rate 3 Fraction of Inspired Oxygen 01/10/24 23:12 01/10/24 23:15 01/10/24 23:30 Temperature Pulse Rate 191 H 134 H 124 H Respiratory Rate 22 H 24 H 18 Blood Pressure Pulse Oximetry Oxygen Delivery Oxygen Flow Rate Fraction of Inspired Oxygen 01/10/24 23:45 01/10/24 23:49 01/11/24 01:23 Temperature Pulse Rate 119 H 117 H 103 H Respiratory Rate 17 15 Blood Pressure 85/52 L 81/68 L Pulse Oximetry 96 95 Oxygen Delivery Oxygen Flow Rate Fraction of Inspired Oxygen 01/11/24 01:25 01/11/24 01:03 01/11/24 01:17 Temperature 99.4 F Pulse Rate 103 H 114 H 110 H Respiratory Rate 16 Blood Pressure 81/68 L 88/74 L 81/68 L Pulse Oximetry 98 Oxygen Delivery Oxygen Flow Rate Fraction of Inspired Oxygen 01/11/24 00:35 01/11/24 00:24 01/11/24 00:42 Temperature 99.4 F Pulse Rate 111 H 121 H Respiratory Rate 15 19 Blood Pressure 110/68 Pulse Oximetry 99 Oxygen Delivery Oxygen Flow Rate
[2024-01-11 14:43] LABS: Alveolar/Arterial O2 Gradient 404.7 mmHg; Base Excess ABG -3.7 mEq/l (+/-2.0); Fractional Inspired Oxygen 100 %; HCO3 ABG 21.7 mEq/l (22.0-26.0); Oxygen Content ABG 20.5 %vol (16.0-22.0); Oxygen Saturation ABG 99.6 % (95.0-100.0); PCO2 ABG 40.7 mmHg (35.0-45.0); PO2 ABG 267.6 mmHg (80.0-100.0); PO2 FiO2 Ratio Arterial Blood 2.68 %; Total Hemoglobin 14.4 g/dL (12.0-18.0); pH ABG 7.345 (7.350-7.450)
[2024-01-11 14:45] LABS: Device NON-REBREATHER MASK; Modified Allen's Test Pass; Site Drawn RIGHT RADIAL
[2024-01-11] MEDS: busPIRone HCL 10 MG TABLET PO (15:01)
[2024-01-11] MEDS: LORazepam INJ (*CRX) 2 MG/ML VIAL 0.5 MG IV PUSH (15:01)
[2024-01-11] MEDS: MEMANTINE 10 MG TABLET PO (15:01)
[2024-01-11] MEDS: PRIMIDONE 50 MG TABLET PO (15:03)
[2024-01-11] MEDS: ACETAMINOPHEN 325 MG TABLET 650 MG (15:03)
[2024-01-11] MEDS: SODIUM CHLORIDE 0.9% IV 1,000 ML 100 ML IV CONT (15:04)
[2024-01-11 15:11] LABS: Lactic Acid Reflex 4.5 mmol/L (0.7-2.0)
--- NOTE | 2024-01-11 15:19 | ECG_ITS ---
Test Date: 2024-01-11 15:42:00 Measurements Intervals [place] Rate: 131 P: 98 [place]: 169 QRS: -16 QRSD: 87 T: 229 QT: 206 QTc: 304 Interpretive Statements SIGNIFICANT BASELINE ARTIFACT ATRIAL FIBRILLATION WITH RAPID VENTRICULAR RESPONSE LOW QRS VOLTAGE IN PRECORDIAL LEADSN CANNOT R/O SEPTAL INFARCT, AGE INDETERMINATE ST-T WAVE ABNORMALITY IN LATERAL LEADS- CONSIDER ISCHEMIA BASELINE ARTIFACT- I, II, III, AVR, AVL, AVF, V1-V6 ABNORMAL ECG Compared to ECG 01/11/2024 02:49:13 ATRIAL FIBRILLATION NOW PRESENT Electronically Signed On 01-11-2024 18:55:45 CDT by mR Bishop D.O.
[2024-01-11] MEDS: SODIUM CHLORIDE 0.9% IV 500 ML IV CONT (15:20)
--- NOTE | 2024-01-11 17:09 | PM.CNCAR ---
Assessment and Plan Assessment and plan (1) Atrial fibrillation: Code(s): I48.91 - Unspecified atrial fibrillation Status: Acute Assessment and Plan: [id number] 3. On Amiodarone drip and continue drip and Lovenox. Start Metoprolol 25 mg PO every 6 hours for rate control. Will eventually change Lovenox to DOAC. (2) Pneumonia: Code(s): J18.9 - Pneumonia, unspecified organism Status: Acute Assessment and Plan: On antibiotics as per hospitalist. (3) Elevated troponin: Code(s): R79.89 - Other specified abnormal findings of blood chemistry Status: Acute Assessment and Plan: Troponin elevated and t rending down from 2.4 to 1.72. Could be demand ischemia from infections. Check echo. (4) Acute UTI: Code(s): N39.0 - Urinary tract infection, site not specified Status: Acute Assessment and Plan: On antibiotics as per hospitalist. History of Present Illness History of Present Illness Consult date/time: 01/11/24 17:09 Reason For Visit: Sepsis, UTI, pneumonia, elevated troponin Narrative: 73 yr old woman from long-term presents to ER with chest pain. She has a history of CHF, DM, peripheral neuropathy, bed bound to due neuropathy, COPD, obesity. She was obtunded when brought in but currently she is alert and oriented. It was found that she has Pneumonia and UTI and sepsis, new onset rapid atrial fibrillation and placed on Amiodarone drip. Denies chest pain or sob. States she has been bed bound for years and unable to walk due to leg weakness/paralysis from neuropathy. She had fever but no chills. Denies orthopnea, PND, edema, dizziness, palpitations. Review of Systems Review of Systems: All systems reviewed & are unremarkable except as noted in HPI and below Constitutional: Constitutional: Reports as per HPI, Denies chills and Reports fever(s) Cardiovascular: Cardiovascular: Reports as per HPI, Denies chest pain and Denies lightheadedness Respiratory: Respiratory: Reports as per HPI and Denies dyspnea Gastrointestinal: Gastrointestinal: Reports as per HPI and Denies abdominal pain Genitourinary: Genitourinary: Reports as per HPI Musculoskeletal: Musculoskeletal: Reports as per HPI Neurologic: Reports as per HPI, Denies dizziness and Denies syncope [facility] Past Medical History Medical History (Updated 01/11/24 @ 04:12 by Ingris Swain MD) COPD (chronic obstructive pulmonary disease) Diabetes Surgical History Surgical History No significant past surgical history Social History Social History Smoking status: Never smoker Second hand tobacco smoke exposure: No Alcohol intake: never Substance use: never Do You Feel Safe in your Home?: Yes Lack of Transportation: No Lack of Food: Never True Current Housing: I Have Housing Concerned About Future Housing: No Difficulty Paying Gas/Electric Bills: No Difficulty Paying for Meds: No Currently Unemployed: No Education: High School Diploma/GED Difficulty w/ Childcare or Family Care: No Spiritual care concerns: No Meds Home Medications and Allergies Home Medications Medication Instructions Recorded Confirmed Type acetaminophen 650 mg tablet 650 mg PO TID 10/28/23 01/11/24 History albuterol sulfate 90 mcg/actuation 2 puff inhalation Q4H PRN S.O.B 10/28/23 01/11/24 History aerosol inhaler aripiprazole 2 mg tablet 2 mg PO DAILY 10/28/23 01/11/24 History aripiprazole 5 mg tablet 5 mg PO DAILY 10/28/23 01/11/24 History buspirone 10 mg tablet 10 mg PO TID 10/28/23 01/11/24 History cholecalciferol (vitamin D3) 25 25 mcg PO DAILY 10/28/23 01/11/24 History mcg (1,000 unit) capsule (Vitamin D3) escitalopram oxalate 10 mg tablet 20 mg PO DAILY 10/28/23 01/11/24 History ferrous sulfate 325 mg (65 mg 325 mg PO DAILY 10/28/23 01/11/24
[2024-01-11 17:37] LABS: Reflex Lactic Acid Yes or No Add Lactic
[2024-01-11] MEDS: VANCOMYCIN 1,500 MG/NS 500 ML 1,500 MG/500 ML BAG 250 MG IVPB (18:21)
[2024-01-11] MEDS: METOPROLOL TARTRATE 25 MG TABLET PO ×2 (18:22→23:02)
[2024-01-11] MEDS: AMIODARONE HCL 200 MG TABLET PO (18:22)
[2024-01-11 18:34] LABS: Lactic Acid 3.2 mmol/L (0.7-2.0)
[2024-01-11] MEDS: INSULIN ASPART (*BKC) 100 UNITS/ML 6 UNITS SUB-Q (20:39)
[2024-01-11] MEDS: INSULIN GLARGINE (*BKC) 100 UNITS/ML 10 UNITS SUB-Q (20:40)
[2024-01-11 20:43] LABS: Glucose Point of Care 295 mg/dl (65-105)
[2024-01-11 22:04] LABS: Hemoglobin A1C 8.4 % (<5.7)
[2024-01-11] MEDS: traZODone HCL 50 MG TABLET PO (22:59)
[2024-01-11] MEDS: LORazepam (*CRX) 0.5 MG TABLET PO (23:44)
[2024-01-12] VITALS (33 sets, daily range): BP systolic 102–153; BP diastolic 62–105; PULSE 62–108; RESP 18–28; TEMP 36.2–37.2; O2SAT 94–100
[2024-01-12 02:45] LABS: Glucose Point of Care 272 mg/dl (65-105)
[2024-01-12] MEDS: CEFEPIME 2 GM/NS 50 ML 2 GM/50 ML BAG IVPB ×2 (03:09→16:58)
[2024-01-12] MEDS: FUROSEMIDE INJ 40 MG/4 ML VIAL IV PUSH (03:48)
[2024-01-12] MEDS: MORPHINE SULFATE (*CRX) 2 MG/ML INJ 1 MG IV PUSH (03:50)
[2024-01-12 04:12] LABS: Alveolar/Arterial O2 Gradient 123.6 mmHg; Base Excess ABG -1.1 mEq/l (+/-2.0); Fractional Inspired Oxygen 32 %; HCO3 ABG 24.1 mEq/l (22.0-26.0); Oxygen Content ABG 16.8 %vol (16.0-22.0); Oxygen Saturation ABG 88.2 % (95.0-100.0); PO2 ABG 55.4 mmHg (80.0-100.0); PO2 FiO2 Ratio Arterial Blood 1.73 %; Total Hemoglobin 13.8 g/dL (12.0-18.0); pH ABG 7.377 (7.350-7.450)
[2024-01-12] MEDS: LORazepam INJ (*CRX) 2 MG/ML VIAL 1 MG IV PUSH (04:12)
[2024-01-12 04:14] LABS: Device NASAL CANNULA; Modified Allen's Test Pass; Oxyhemoglobin 86.5 % THb (90.0-100.0); Site Drawn LEFT RADIAL
[2024-01-12] MEDS: AZITHROMYCIN 500 MG/NS 250 ML 500 MG/250 ML BAG 250 MG IVPB (04:14)
--- NOTE | 2024-01-12 04:19 | PC.NURSE ---
spoke with Dr. Swain regarding patient's pallor, diaphoresis, abdomenal breathing, and anxiety. New orders received. Marie placed with sterile technique, Bipap in place. Patient resting comfortably.
[2024-01-12 04:59] LABS: Basophils Percent Auto 0.1 % (0.2-1.2); Hematocrit 41.2 % (37.0-47.0); Hemoglobin 13.1 g/dL (12.0-15.0); Immature Granulocyte Absolute 0.08 K/mm3 (0.00-0.031); Immature Granulocyte Percent A 0.6 % (0-0.5); Lymphocytes Absolute Auto 0.72 K/mm3 (0.9-3.2); Lymphocytes Percent Auto 5.3 % (18.3-44.2); Mean Corpuscular HGB Conc 31.8 g/dl (32-36); Mean Corpuscular Hemoglobin 31.1 pg (26-34); Mean Corpuscular Volume 97.9 fl (80-100); Mean Platelet Volume 10.4 fl (7.4-10.4); Monocytes Absolute Auto 0.9 K/mm3 (0.1-0.6); Monocytes Percent Auto 6.5 % (2.6-8.5); Neutrophils Absolute Auto 11.8 K/mm3 (1.3-6.7); Neutrophils Percent Auto 87.5 % (45.5-73.1); Platelet Count Result 165 k/mm3 (150-375); Red Blood Count 4.21 M/mm3 (4.2-5.4); Red Cell Distribution Width 14.4 % (11.5-14.5); White Blood Count 13.5 K/mm3 (4.5-10.0)
[2024-01-12 05:10] LABS: Lactic Acid Reflex 2.3 mmol/L (0.7-2.0)
[2024-01-12 05:16] LABS: Alanine Aminotransferase 28 U/L (6-35); Albumin Level 3.1 g/dL (3.5-5.1); Alkaline Phosphatase 75 U/L (38-126); Anion Gap 10 mmol/L (4-12); Aspartate Amino Transferase 54 U/L (14-36); Bilirubin,Total 0.6 mg/dL (0.2-1.3); Blood Urea Nitrogen 22 mg/dL (7-17); Calcium 7.8 mg/dL (8.4-10.2); Carbon Dioxide 25 mmol/L (22-30); Chloride 107 mmol/L (98-107); Estimated CRCL calculation 103 ml/min; Estimated Glomerular Filt Rate > 60; Glucose 315 mg/dL (65-110); Magnesium 1.7 mg/dL (1.6-2.3); Potassium 3.7 mmol/L (3.4-5.0); Sodium 142 mmol/L (137-145)
[2024-01-12] MEDS: VANCOMYCIN 1,500 MG/NS 500 ML 1,500 MG/500 ML BAG 250 MG IVPB ×2 (05:25→20:40)
[2024-01-12 07:56] LABS: Reflex Lactic Acid Yes or No Add Lactic
--- NOTE | 2024-01-12 08:00 | ECG_ITS ---
Test Date: 2024-01-12 08:51:07 Measurements Intervals [place] Rate: 94 P: 40 [place]: 147 QRS: -12 QRSD: 88 T: 46 QT: 377 QTc: 474 Interpretive Statements SINUS RHYTHM DELAYED PRECORDIAL R/S TRANSITION LOW QRS VOLTAGE IN PRECORDIAL LEADS NONSPECIFIC T-WAVE ABNORMALITY- INFERIOR LEADS BASELINE ARTIFACT- I, II, III, AVR, AVL, AVF, V2 BORDERLINE ECG Compared to ECG 01/11/2024 15:42:00 Atrial fibrillation no longer present Electronically Signed On 01-12-2024 09:48:34 CDT by Rm Bishop D.O.
[2024-01-12] MEDS: APIXABAN 5 MG TABLET PO ×2 (08:07→20:39)
[2024-01-12] MEDS: PRIMIDONE 50 MG TABLET PO ×2 (08:07→16:57)
[2024-01-12] MEDS: predniSONE 20 MG TABLET 40 MG PO (08:07)
[2024-01-12] MEDS: ARIPiprazole 2 MG TABLET PO (08:07)
[2024-01-12] MEDS: AMIODARONE HCL 200 MG TABLET PO ×2 (08:07→16:57)
[2024-01-12] MEDS: MEMANTINE 10 MG TABLET PO ×2 (08:07→16:57)
[2024-01-12] MEDS: ARIPiprazole 5 MG TABLET PO (08:08)
[2024-01-12] MEDS: PANTOPRAZOLE 40 MG TABLET PO (08:08)
[2024-01-12] MEDS: ASPIRIN 81 MG CHEWABLE TABLET PO (08:08)
[2024-01-12] MEDS: METOPROLOL TARTRATE 25 MG TABLET PO ×4 (08:08→20:37)
[2024-01-12] MEDS: busPIRone HCL 10 MG TABLET PO ×3 (08:08→16:57)
[2024-01-12] MEDS: MICONAZOLE NITRATE 2% CREAM 30 GM TUBE 1 APPLIC TOPICAL ×2 (08:12→20:39)
[2024-01-12] MEDS: IPRATROPIUM 0.5 MG/ALBUTEROL SULFATE 2.5 MG AMPUL.NEB 3 ML INHALATION ×3 (08:29→20:23)
[2024-01-12 08:41] LABS: Lactic Acid 2.9 mmol/L (0.7-2.0)
--- NOTE | 2024-01-12 08:42 | PM.PNCARD ---
Progress Note: A&P Assessment and Plan (1) Atrial fibrillation: Code(s): I48.91 - Unspecified atrial fibrillation Status: Acute Assessment and Plan: [id number] 3. On Amiodarone 200 mg BID and Eliquis. Started Metoprolol 25 mg PO every 6 hours for rate control. Check EKG. (2) Pneumonia: Code(s): J18.9 - Pneumonia, unspecified organism Status: Acute Assessment and Plan: On antibiotics as per hospitalist. (3) Elevated troponin: Code(s): R79.89 - Other specified abnormal findings of blood chemistry Status: Acute Assessment and Plan: Troponin elevated and t rending down from 2.4 to 1.72. Could be demand ischemia from infections. 01/11/24 Echo: EF 35%, apical half of heart is akinetic s/o Takotsubo cardiomyopathy, mild TR. (4) Acute UTI: Code(s): N39.0 - Urinary tract infection, site not specified Status: Acute Assessment and Plan: On antibiotics as per hospitalist. (5) Systolic dysfunction: Code(s): I51.9 - Heart disease, unspecified Status: Acute Assessment and Plan: On Metoprolol. Start Entresto 24-26 mg BID. Subjective Date/time seen: 01/12/24 08:42 Interval history: Denies chest pain. Has some sob but denies it. Exam Const: General: cooperative, healthy appearing, comfortable and obese Nutritional Appearance: obese Orientation/consciousness: oriented to person, oriented to place and oriented to time Resp: Auscultation: clear to auscultation bilaterally, no crackles, no rales, no rhonchi and no wheezes Cardio: Rate: regular rate Rhythm: abnormal rhythm Heart sounds: no murmurs Peripheral pulses: dorsalis pedis present Neuro: General: oriented to person, oriented to place and oriented to time Extrem: Right lower extremity: no edema Left lower extremity: no edema Objective Data Vital Signs Vital Signs: Vital Signs - 24 hr 01/11/24 10:00 01/11/24 10:05 01/11/24 10:03 Temperature 97.5 F L Pulse Rate 102 H 102 H 106 H Respiratory Rate 24 H Blood Pressure 110/72 Pulse Oximetry 100 Oxygen Delivery Oxygen Flow Rate Fraction of Inspired Oxygen 01/11/24 12:00 01/11/24 12:32 01/11/24 15:03 Temperature 97.9 F 101 F H Pulse Rate 108 H 109 H Respiratory Rate 26 H Blood Pressure 116/73 Pulse Oximetry 96 Oxygen Delivery Oxygen Flow Rate Fraction of Inspired Oxygen 01/11/24 14:30 01/11/24 15:56 01/11/24 16:00 Temperature 101.4 F H 97.3 F L Pulse Rate 133 H 112 H Respiratory Rate 28 H Blood Pressure 127/73 Pulse Oximetry 93 Oxygen Delivery Oxygen Flow Rate Fraction of Inspired Oxygen 01/11/24 12:00 01/11/24 12:00 01/11/24 14:00 Temperature Pulse Rate 106 H 121 H Respiratory Rate Blood Pressure Pulse Oximetry 94 Oxygen Delivery Nasal Cannula Oxygen Flow Rate 6 Fraction of Inspired Oxygen 01/11/24 16:00 01/11/24 16:00 01/11/24 18:22 Temperature Pulse Rate 116 H 115 H Respiratory Rate Blood Pressure Pulse Oximetry 92 Oxygen Delivery Nasal Cannula Oxygen Flow Rate 6 Fraction of Inspired Oxygen 01/11/24 18:22 01/11/24 18:00 01/11/24 20:02 Temperature 98.5 F Pulse Rate 118 H 91 83 Respiratory Rate 28 H Blood Pressure 132/91 H Pulse Oximetry 100 Oxygen Delivery Oxygen Flow Rate Fraction of Inspired Oxygen 01/11/24 20:00 01/11/24 20:00 01/11/24 22:00 Temperature Pulse Rate 83 83 89 Respiratory Rate 28 H Blood Pressure Pulse Oximetry 96 Oxygen Delivery Nasal Cannula Oxygen Flow Rate 4 Fraction of Inspired Oxygen 01/11/24 23:02 01/11/24 23:49 01/12/24 00:21 Temperature 97.7 F Pulse Rate 97 97 97 Respiratory Rate 28 H 28 H Blood Pressure 153/87 H Pulse Oximetry 100 94 Oxygen Delivery Nasal Cannula Oxygen Flow Rate 4 Fraction of Inspired Oxygen 01/12/24 00:00 01/12/24 02:00 01/12/24 03:30 Temperature 98.4 F Pulse Rate 87
[2024-01-12 08:55] LABS: Glucose Point of Care 289 mg/dl (65-105)
[2024-01-12] MEDS: INSULIN ASPART (*BKC) 100 UNITS/ML SUB-Q ×3 (09:48→16:58)
[2024-01-12] MEDS: SACUBITRIL/VALSARTAN 24-26 MG TABLET 1 TAB PO (09:48)
[2024-01-12 11:25] LABS: Glucose Point of Care 332 mg/dl (65-105)
[2024-01-12 16:00] LABS: MRSA (PCR) NOT DETECTED (NOT DETECTE)
[2024-01-12 16:03] LABS: Glucose Point of Care 355 mg/dl (65-105)
[2024-01-12 18:19] LABS: Vancomycin Trough 9.7 ug/mL (10.0-20.0)
--- NOTE | 2024-01-12 18:43 | WPDPN ---
Progress Note: A&P Assessment and Plan (1) Sepsis: Code(s): A41.9 - Sepsis, unspecified organism Status: Acute Assessment and Plan: ADMIT TO IMU STARTED ON CEFEPIME VANC AND ZITHROMAX URINALYSIS SIGNIFICANT FOR MORE THAN 100 WBCS PRESENT CHEST X-RAY SHOWS INFILTRATES EARLY GOAL-DIRECTED THERAPY IN PROGRESS (2) Acute UTI: Code(s): N39.0 - Urinary tract infection, site not specified Status: Acute Assessment and Plan: ON BROAD-SPECTRUM ANTIBIOTIC (3) Elevated troponin: Code(s): R79.89 - Other specified abnormal findings of blood chemistry Status: Acute Assessment and Plan: GIVEN LOVENOX LIKELY TO BE TYPE 2 [place] ECHOCARDIOGRAM IN A.M. CARDIOLOGY CONSULT CONTINUE TO TREND TROPONIN (4) COPD (chronic obstructive pulmonary disease): Code(s): J44.9 - Chronic obstructive pulmonary disease, unspecified Status: Acute Assessment and Plan: BREATHING TREATMENTS (5) Atrial fibrillation: Code(s): I48.91 - Unspecified atrial fibrillation Status: Acute Assessment and Plan: STARTED ON AMIODARONE (6) AMS (altered mental status): Code(s): R41.82 - Altered mental status, unspecified Status: Acute Assessment and Plan: LIKELY SECONDARY TO ENCEPHALOPATHY Plan Patient is seen by door captain with atrial fibrillation patient is on amiodarone and anticoagulated with Eliquis the door captain and metoprolol to control rate, concern for sepsis suspected UTI growing E coli patient is being treated with Cefepime and vancomycin will follow-up with sensitivity and blood culture. Patient states feeling little better compared to when she arrived not as short of breath Subjective Date/time seen: 01/12/24 18:43 Interval history: ams [id number]: This is a 73-year-old female shelter resident patient with history of breast cancer status post bilateral mastectomy, congestive heart failure, peripheral neuropathy, insulin-dependent diabetes mellitus, morbid obesity, COPD. patient initially was brought to the emergency room after STEMI was activated via EMS Patient complained of chest pain. Cardiology was contacted and no need for emergent catheterization as patient has been found to have sepsis. at the time of my visit patient is obtunded unable to give any history. Preliminary workup was significant for troponin of 2.9, BNP 8600, a urinalysis was significant for greater than 100 WBCs per high-power field, patient tested negative for influenza type A influenza type B RSV and COVID Patient is seen by door captain with atrial fibrillation patient is on amiodarone and anticoagulated with Eliquis the door captain and metoprolol to control rate, concern for sepsis suspected UTI growing E coli patient is being treated with Cefepime and vancomycin will follow-up with sensitivity and blood culture. Patient states feeling little better compared to when she arrived not as short of breath Review of Systems Review of Systems: ROS unobtainable: Yes unobtainable due to mental status ( obtunded/lethargy) Exam Narrative: Patient is comfortable, NAD HEENT: eyes are clear and none icteric LUNGS: Bilateral fair entry with rhonchi HEART: RR S1S2 ABD: BS+, Soft and nontender Lower extremities: no edema SKIN: nonjaundiced Neuro: grossly intact. Objective Data Vital Signs Vital Signs: Vital Signs - 24 hr 01/11/24 20:02 01/11/24 20:00 01/11/24 20:00 Temperature 36.9 C Pulse Rate 83 83 83 Respiratory Rate 28 H 28 H Blood Pressure 132/91 H Pulse Oximetry 100 96 Oxygen Delivery Nasal Cannula Oxygen Flow Rate 4 Fraction of Inspired Oxygen 01/11/24 22:00 01/11/24 23:02 01/11/24 23:49 Temperature Pulse Rate 89 97 97 Respiratory Rate 28 H Blood Pressure Pulse Oximetry 100 Oxygen Delivery Nasal Cannula Oxygen Flow Rate 4 Fraction of Inspired Oxygen 01/12/24 00:21 01/12/24 0
[2024-01-12 20:21] LABS: Glucose Point of Care 315 mg/dl (65-105)
[2024-01-12] MEDS: traZODone HCL 50 MG TABLET PO (20:39)
[2024-01-12] MEDS: INSULIN GLARGINE (*BKC) 100 UNITS/ML 10 UNITS SUB-Q (20:40)
[2024-01-13] VITALS (27 sets, daily range): BP systolic 90–124; BP diastolic 46–102; PULSE 66–89; RESP 18–26; TEMP 36.5–37.1; O2SAT 98–100
[2024-01-13] MEDS: IPRATROPIUM 0.5 MG/ALBUTEROL SULFATE 2.5 MG AMPUL.NEB 3 ML INHALATION ×4 (01:45→20:30)
[2024-01-13] MEDS: ACETAMINOPHEN 325 MG TABLET 650 MG PO (02:01)
[2024-01-13] MEDS: LORazepam (*CRX) 0.5 MG TABLET PO ×2 (02:02→14:37)
[2024-01-13] MEDS: VANCOMYCIN 1,500 MG/NS 500 ML 1,500 MG/500 ML BAG 250 MG IVPB ×2 (03:39→11:59)
[2024-01-13] MEDS: CEFEPIME 2 GM/NS 50 ML 2 GM/50 ML BAG IVPB ×2 (03:40→17:12)
[2024-01-13] MEDS: AZITHROMYCIN 500 MG/NS 250 ML 500 MG/250 ML BAG 250 MG IVPB (04:59)
[2024-01-13 05:01] LABS: Estimated CRCL calculation 103 ml/min; Estimated Glomerular Filt Rate > 60
--- NOTE | 2024-01-13 06:19 | PC.NURSE ---
Dr. Swain was notified of the patient's apparent conversion to AFIB per tele monitor, ordered to continue to monitor. No other orders at this time.
--- NOTE | 2024-01-13 08:04 | PM.PNCARD ---
Progress Note: A&P Assessment and Plan (1) Atrial fibrillation: Code(s): I48.91 - Unspecified atrial fibrillation Status: Acute Assessment and Plan: Back in sinus rhythm. [id number] 3. On Amiodarone 200 mg BID and Eliquis. On Metoprolol 25 mg PO BID. Check EKG. (2) Pneumonia: Code(s): J18.9 - Pneumonia, unspecified organism Status: Acute Assessment and Plan: On antibiotics as per hospitalist. (3) Elevated troponin: Code(s): R79.89 - Other specified abnormal findings of blood chemistry Status: Acute Assessment and Plan: Troponin elevated and t rending down from 2.4 to 1.72. Could be demand ischemia from infections. 01/11/24 Echo: EF 35%, apical half of heart is akinetic s/o Takotsubo cardiomyopathy, mild TR. (4) Acute UTI: Code(s): N39.0 - Urinary tract infection, site not specified Status: Acute Assessment and Plan: On antibiotics as per hospitalist. (5) Systolic dysfunction: Code(s): I51.9 - Heart disease, unspecified Status: Acute Assessment and Plan: On Metoprolol and Losartan. Had to change Entresto 24-26 mg BID to Losartan due to low normal BP. Subjective Date/time seen: 01/13/24 08:04 Interval history: Denies chest pain or sob. Exam Const: General: cooperative, healthy appearing, comfortable and obese Nutritional Appearance: obese Orientation/consciousness: oriented to person, oriented to place and oriented to time Resp: Auscultation: clear to auscultation bilaterally, no crackles, no rales, no rhonchi and no wheezes Cardio: Rate: regular rate Rhythm: regular rhythm Heart sounds: no murmurs Peripheral pulses: dorsalis pedis present Neuro: General: oriented to person, oriented to place and oriented to time Extrem: Right lower extremity: no edema Left lower extremity: no edema Objective Data Vital Signs Vital Signs: Vital Signs - 24 hr 01/12/24 08:32 01/12/24 08:33 01/12/24 08:41 Temperature Pulse Rate 100 102 H Respiratory Rate 20 20 20 Blood Pressure Pulse Oximetry Oxygen Delivery BiPAP Oxygen Flow Rate Fraction of Inspired Oxygen 01/12/24 10:00 01/12/24 11:46 01/12/24 11:45 Temperature 98.5 F Pulse Rate 84 85 90 Respiratory Rate 21 H 20 Blood Pressure 145/105 H Pulse Oximetry 99 97 Oxygen Delivery Nasal Cannula Oxygen Flow Rate 3 Fraction of Inspired Oxygen 01/12/24 12:00 01/12/24 12:00 01/12/24 13:46 Temperature Pulse Rate 92 Respiratory Rate Blood Pressure Pulse Oximetry 97 97 Oxygen Delivery BiPAP Nasal Cannula Oxygen Flow Rate 3 3 Fraction of Inspired Oxygen 01/12/24 13:46 01/12/24 13:57 01/12/24 14:01 Temperature Pulse Rate 79 78 Respiratory Rate 20 20 20 Blood Pressure Pulse Oximetry Oxygen Delivery BiPAP Oxygen Flow Rate Fraction of Inspired Oxygen 01/12/24 14:00 01/12/24 15:31 01/12/24 16:00 Temperature 99 F Pulse Rate 74 88 78 Respiratory Rate 21 H Blood Pressure 103/65 Pulse Oximetry 99 Oxygen Delivery Oxygen Flow Rate Fraction of Inspired Oxygen 01/12/24 16:00 01/12/24 18:00 01/12/24 20:25 Temperature Pulse Rate 78 66 Respiratory Rate 19 Blood Pressure Pulse Oximetry 95 100 Oxygen Delivery Nasal Cannula BiPAP Oxygen Flow Rate 3 Fraction of Inspired Oxygen 01/12/24 20:26 01/12/24 20:27 01/12/24 20:34 Temperature 99.0 F Pulse Rate 66 69 Respiratory Rate 19 21 H Blood Pressure 102/62 Pulse Oximetry 100 100 Oxygen Delivery BiPAP Oxygen Flow Rate Fraction of Inspired Oxygen 50 01/12/24 20:37 01/12/24 20:00 01/12/24 20:00 Temperature Pulse Rate 74 64 Respiratory Rate Blood Pressure Pulse Oximetry Oxygen Delivery BiPAP Oxygen Flow Rate Fraction of Inspired Oxygen 50 01/12/24 22:00 01/12/24 20:37 01/12/24 23:30 Temperature Pulse Rate 62 70 72 Respiratory Rate 19 22 H Blood Pressure
[2024-01-13 08:35] LABS: Glucose Point of Care 190 mg/dl (65-105)
[2024-01-13] MEDS: PANTOPRAZOLE 40 MG TABLET PO (09:16)
[2024-01-13] MEDS: ARIPiprazole 2 MG TABLET PO (09:17)
[2024-01-13] MEDS: PRIMIDONE 50 MG TABLET PO ×2 (09:17→17:12)
[2024-01-13] MEDS: ARIPiprazole 5 MG TABLET PO (09:17)
[2024-01-13] MEDS: AMIODARONE HCL 200 MG TABLET PO ×2 (09:18→17:12)
[2024-01-13] MEDS: busPIRone HCL 10 MG TABLET PO ×3 (09:18→17:12)
[2024-01-13] MEDS: APIXABAN 5 MG TABLET PO ×2 (09:19→21:24)
[2024-01-13] MEDS: MEMANTINE 10 MG TABLET PO ×2 (09:19→17:12)
[2024-01-13] MEDS: predniSONE 20 MG TABLET 40 MG PO (09:20)
[2024-01-13] MEDS: ASPIRIN 81 MG CHEWABLE TABLET PO (09:21)
[2024-01-13] MEDS: LOSARTAN POTASSIUM 25 MG TABLET PO (09:21)
[2024-01-13] MEDS: METOPROLOL TARTRATE 25 MG TABLET PO ×2 (09:21→17:12)
[2024-01-13] MEDS: MICONAZOLE NITRATE 2% CREAM 30 GM TUBE 1 APPLIC TOPICAL ×2 (09:27→21:25)
--- NOTE | 2024-01-13 09:39 | P.CDI_ITS ---
CDI Query Clarification Request CHF has been documented, Please specify type and acuity of heart failure if known. Clinical Indicators: BNP 01/09: 8600, has had an increase in O2 requirements. Treatment: IV lasix given on 01/11 * Acute * Chronic * Acute on Chronic * Unknown * Systolic * Diastolic * Combined Systolic and Diastolic * Unknown <Krystle Mckeon RN - Last Filed: 01/13/24 09:41> Clarified Diagnosis Clarified Diagnosis: With global ejection fraction of 35% and elevated BNP of 8600, most likely patient has acute on chronic systolic CHF <Hiwot Akbar MD - Last Filed: 01/14/24 06:29>
[2024-01-13 12:00] LABS: Glucose Point of Care 264 mg/dl (65-105)
[2024-01-13] MEDS: INSULIN ASPART (*BKC) 100 UNITS/ML SUB-Q ×2 (12:00→17:12)
[2024-01-13] MEDS: NITROFURANTOIN MONOHYD MACROCR 100 MG CAP PO ×2 (14:28→21:24)
--- NOTE | 2024-01-13 15:16 | PC.NURSE ---
On 01/13/24, the student, Dennys [facility], provided care and completed [facility] documentation on this patient. I have reviewed the student's documentation and agree with the findings.
[2024-01-13 16:00] LABS: Glucose Point of Care 303 mg/dl (65-105)
--- NOTE | 2024-01-13 18:19 | PM.IMPN ---
Progress Note: A&P Assessment and Plan (1) Sepsis: Code(s): A41.9 - Sepsis, unspecified organism Status: Acute Assessment and Plan: ADMIT TO IMU STARTED ON CEFEPIME VANC AND ZITHROMAX URINALYSIS SIGNIFICANT FOR MORE THAN 100 WBCS PRESENT CHEST X-RAY SHOWS INFILTRATES EARLY GOAL-DIRECTED THERAPY IN PROGRESS (2) Acute UTI: Code(s): N39.0 - Urinary tract infection, site not specified Status: Acute Assessment and Plan: ON BROAD-SPECTRUM ANTIBIOTIC (3) Elevated troponin: Code(s): R79.89 - Other specified abnormal findings of blood chemistry Status: Acute Assessment and Plan: GIVEN LOVENOX LIKELY TO BE TYPE 2 [place] ECHOCARDIOGRAM IN A.M. CARDIOLOGY CONSULT CONTINUE TO TREND TROPONIN (4) COPD (chronic obstructive pulmonary disease): Code(s): J44.9 - Chronic obstructive pulmonary disease, unspecified Status: Acute Assessment and Plan: BREATHING TREATMENTS (5) Atrial fibrillation: Code(s): I48.91 - Unspecified atrial fibrillation Status: Acute Assessment and Plan: STARTED ON AMIODARONE (6) AMS (altered mental status): Code(s): R41.82 - Altered mental status, unspecified Status: Acute Assessment and Plan: LIKELY SECONDARY TO ENCEPHALOPATHY Plan Patient is seen by compensation business partner with atrial fibrillation patient is on amiodarone and anticoagulated with Eliquis the compensation business partner and metoprolol to control rate, concern for sepsis suspected UTI growing E coli patient is being treated with Cefepime and vancomycin, urine culture is growing E. coli multiresistant and blood culture no growth sofar. Patient states feeling little better compared to when she arrived not as short of breath Subjective Date/time seen: 01/13/24 18:19 Interval history: Patient is seen by compensation business partner with atrial fibrillation patient is on amiodarone and anticoagulated with Eliquis the compensation business partner and metoprolol to control rate, concern for sepsis suspected UTI growing E coli patient is being treated with Cefepime and vancomycin, urine culture is growing E. coli multiresistant and blood culture no growth sofar. Patient states feeling little better compared to when she arrived not as short of breath Review of Systems Review of Systems: ROS unobtainable: Yes unobtainable due to mental status ( obtunded/lethargy) Exam Narrative: Patient is comfortable, NAD HEENT: eyes are clear and none icteric LUNGS: Bilateral fair entry with rhonchi HEART: RR S1S2 ABD: BS+, Soft and nontender Lower extremities: no edema SKIN: nonjaundiced Neuro: grossly intact. Objective Data Vital Signs Vital Signs: Vital Signs - 24 hr 01/12/24 20:25 01/12/24 20:26 01/12/24 20:27 Temperature Pulse Rate 66 66 Respiratory Rate 19 19 Blood Pressure Pulse Oximetry 100 100 Oxygen Delivery BiPAP BiPAP Oxygen Flow Rate Fraction of Inspired Oxygen 50 01/12/24 20:34 01/12/24 20:37 01/12/24 20:00 Temperature 37.2 C Pulse Rate 69 74 Respiratory Rate 21 H Blood Pressure 102/62 Pulse Oximetry 100 Oxygen Delivery BiPAP Oxygen Flow Rate Fraction of Inspired Oxygen 50 01/12/24 20:00 01/12/24 22:00 01/12/24 20:37 Temperature Pulse Rate 64 62 70 Respiratory Rate 19 Blood Pressure Pulse Oximetry Oxygen Delivery Oxygen Flow Rate Fraction of Inspired Oxygen 01/12/24 23:30 01/13/24 00:00 01/13/24 00:14 Temperature 37.1 C Pulse Rate 72 69 Respiratory Rate 22 H 19 Blood Pressure 99/46 L Pulse Oximetry 100 100 Oxygen Delivery BiPAP BiPAP Oxygen Flow Rate Fraction of Inspired Oxygen 50 01/13/24 01:44 01/13/24 00:00 01/13/24 02:00 Temperature Pulse Rate 76 66 80 Respiratory Rate 20 Blood Pressure Pulse Oximetry Oxygen Delivery Oxygen Flow Rate Fraction of Inspired Oxygen 01/13/24 04:00 01/13/24 03:40 01/13/24 01:54 Temperature Pu
[2024-01-13] MEDS: INSULIN GLARGINE (*BKC) 100 UNITS/ML 10 UNITS SUB-Q (21:24)
[2024-01-13] MEDS: traZODone HCL 50 MG TABLET PO (21:24)
[2024-01-13 21:32] LABS: Glucose Point of Care 229 mg/dl (65-105)
[2024-01-14] VITALS (16 sets, daily range): BP systolic 94–100; BP diastolic 45–56; PULSE 65–106; RESP 18–21; TEMP 36.6–36.9; O2SAT 97–100
[2024-01-14] MEDS: ACETAMINOPHEN 325 MG TABLET 650 MG PO (01:09)
[2024-01-14] MEDS: IPRATROPIUM 0.5 MG/ALBUTEROL SULFATE 2.5 MG AMPUL.NEB 3 ML INHALATION ×3 (02:32→13:21)
[2024-01-14] MEDS: CEFEPIME 2 GM/NS 50 ML 2 GM/50 ML BAG IVPB (04:59)
[2024-01-14 05:25] LABS: Hematocrit 34.6 % (37.0-47.0); Hemoglobin 10.7 g/dL (12.0-15.0); Mean Corpuscular HGB Conc 30.9 g/dl (32-36); Mean Corpuscular Hemoglobin 30.5 pg (26-34); Mean Corpuscular Volume 98.6 fl (80-100); Mean Platelet Volume 10.8 fl (7.4-10.4); Platelet Count Result 143 k/mm3 (150-375); Red Blood Count 3.51 M/mm3 (4.2-5.4); Red Cell Distribution Width 14.6 % (11.5-14.5); White Blood Count 8.3 K/mm3 (4.5-10.0)
[2024-01-14 05:44] LABS: Anion Gap 4 mmol/L (4-12); Blood Urea Nitrogen 15 mg/dL (7-17); Calcium 8.4 mg/dL (8.4-10.2); Carbon Dioxide 29 mmol/L (22-30); Chloride 104 mmol/L (98-107); Estimated CRCL calculation 106 ml/min; Estimated Glomerular Filt Rate > 60; Glucose 157 mg/dL (65-110); Magnesium 2.3 mg/dL (1.6-2.3); Potassium 3.3 mmol/L (3.4-5.0); Sodium 137 mmol/L (137-145)
--- NOTE | 2024-01-14 05:50 | ECG_ITS ---
Test Date: 2024-01-14 09:39:16 Measurements Intervals [place] Rate: 100 P: 0 VT: 0 QRS: -12 QRSD: 101 T: 185 QT: 334 QTc: 431 Interpretive Statements SINUS RHYTHM FREQUENT ATRIAL PREMATURE COMPLEXES DELAYED PRECORDIAL R/S TRANSITION ST-T WAVE ABNORMALITY IN LAT/HIGH LAT LEADS- CONSIDER ISCHEMIA BASELINE ARTIFACT- I, II, III, AVR, AVL, AVF, V1-V2, V4-V6 ABNORMAL ECG Compared to ECG 01/12/2024 08:51:07 ST-T WAVE ABNORMALITY, CONSIDER ISCHEMIA NOW PRESENT Electronically Signed On 01-14-2024 10:36:20 CDT by Rm Bishop D.O.
--- NOTE | 2024-01-14 07:54 | PM.PNCARD ---
Progress Note: A&P Assessment and Plan (1) Atrial fibrillation: Code(s): I48.91 - Unspecified atrial fibrillation Status: Acute Assessment and Plan: Back in sinus rhythm. [id number] 3. On Amiodarone 200 mg BID and Eliquis. Decrease Metoprolol 12.5 mg PO BID due to low normal BP. Check EKG. August d/c home from cardiology standpoint and f/u with me in 1 week. (2) Pneumonia: Code(s): J18.9 - Pneumonia, unspecified organism Status: Acute Assessment and Plan: On antibiotics as per hospitalist. (3) Elevated troponin: Code(s): R79.89 - Other specified abnormal findings of blood chemistry Status: Acute Assessment and Plan: Troponin elevated and t rending down from 2.4 to 1.72. Could be demand ischemia from infections. 01/11/24 Echo: EF 35%, apical half of heart is akinetic s/o Takotsubo cardiomyopathy, mild TR. (4) Acute UTI: Code(s): N39.0 - Urinary tract infection, site not specified Status: Acute Assessment and Plan: On antibiotics as per hospitalist. (5) Systolic dysfunction: Code(s): I51.9 - Heart disease, unspecified Status: Acute Assessment and Plan: On Metoprolol and Losartan. Had to change Entresto 24-26 mg BID to Losartan due to low normal BP. Decrease Losartan 12.5 mg daily due to low normal BP. Subjective Date/time seen: 01/14/24 07:54 Interval history: Denies chest pain or sob. Exam Const: General: cooperative, healthy appearing, comfortable and obese Nutritional Appearance: obese Orientation/consciousness: oriented to person, oriented to place and oriented to time Resp: Auscultation: clear to auscultation bilaterally, no crackles, no rales, no rhonchi and no wheezes Cardio: Rate: regular rate and tachycardic Rhythm: regular rhythm Heart sounds: no murmurs Peripheral pulses: dorsalis pedis present Neuro: General: oriented to person, oriented to place and oriented to time Extrem: Right lower extremity: no edema Left lower extremity: no edema Objective Data Vital Signs Vital Signs: Vital Signs - 24 hr 01/13/24 08:00 01/13/24 09:18 01/13/24 09:21 Temperature 98.7 F Pulse Rate 89 82 82 Respiratory Rate 19 Blood Pressure 124/102 H Pulse Oximetry 100 Oxygen Delivery Oxygen Flow Rate 01/13/24 08:00 01/13/24 08:00 01/13/24 10:00 Temperature Pulse Rate 86 67 Respiratory Rate Blood Pressure Pulse Oximetry 100 Oxygen Delivery Nasal Cannula Oxygen Flow Rate 3 01/13/24 12:00 01/13/24 12:00 01/13/24 12:55 Temperature Pulse Rate 87 89 Respiratory Rate 20 Blood Pressure Pulse Oximetry 100 Oxygen Delivery Nasal Cannula Oxygen Flow Rate 3 01/13/24 13:05 01/13/24 12:00 01/13/24 14:00 Temperature 98.2 F Pulse Rate 85 86 75 Respiratory Rate 20 26 H Blood Pressure 98/46 L Pulse Oximetry 100 Oxygen Delivery Oxygen Flow Rate 01/13/24 16:38 01/13/24 16:00 01/13/24 16:00 Temperature 98 F Pulse Rate 87 79 Respiratory Rate 18 Blood Pressure 103/49 L Pulse Oximetry 100 100 Oxygen Delivery Nasal Cannula Oxygen Flow Rate 2 01/13/24 18:00 01/13/24 20:31 01/13/24 20:39 Temperature Pulse Rate 69 67 71 Respiratory Rate 20 20 Blood Pressure Pulse Oximetry Oxygen Delivery Oxygen Flow Rate 01/13/24 21:01 01/13/24 20:00 01/13/24 20:00 Temperature 97.7 F Pulse Rate 69 69 Respiratory Rate 18 Blood Pressure 90/58 L Pulse Oximetry 99 99 Oxygen Delivery Nasal Cannula Oxygen Flow Rate 2 01/13/24 22:00 01/14/24 00:00 01/14/24 00:05 Temperature 98 F Pulse Rate 69 67 Respiratory Rate 18 Blood Pressure 94/46 L Pulse Oximetry 100 100 Oxygen Delivery Nasal Cannula Oxygen Flow Rate 2 01/14/24 00:00 01/13/24 21:00 01/14/24 02:32 Temperature Pulse Rate 72 65 Respiratory Rate 21 H Blood Pressure Pulse Oximetry 98 Oxygen Delivery Nasal Cannula Oxygen Flow Ra
[2024-01-14] MEDS: ARIPiprazole 2 MG TABLET PO (08:49)
[2024-01-14] MEDS: NITROFURANTOIN MONOHYD MACROCR 100 MG CAP PO (08:49)
[2024-01-14] MEDS: predniSONE 20 MG TABLET 40 MG PO (08:49)
[2024-01-14] MEDS: MEMANTINE 10 MG TABLET PO (08:49)
[2024-01-14] MEDS: METOPROLOL TARTRATE 12.5 MG TABLET PO (08:49)
[2024-01-14] MEDS: busPIRone HCL 10 MG TABLET PO ×2 (08:49→14:26)
[2024-01-14] MEDS: LOSARTAN POTASSIUM 12.5 MG TABLET PO (08:50)
[2024-01-14] MEDS: ASPIRIN 81 MG CHEWABLE TABLET PO (08:50)
[2024-01-14] MEDS: APIXABAN 5 MG TABLET PO (08:50)
[2024-01-14] MEDS: PRIMIDONE 50 MG TABLET PO (08:50)
[2024-01-14] MEDS: AZITHROMYCIN 250 MG TABLET 500 MG PO (08:50)
[2024-01-14] MEDS: ARIPiprazole 5 MG TABLET PO (08:50)
[2024-01-14] MEDS: PANTOPRAZOLE 40 MG TABLET PO (08:50)
[2024-01-14] MEDS: AMIODARONE HCL 200 MG TABLET PO (08:51)
[2024-01-14 11:55] LABS: Glucose Point of Care 142 mg/dl (65-105)
[2024-01-14 12:14] LABS: Glucose Point of Care 260 mg/dl (65-105)
--- NOTE | 2024-01-14 13:04 | PM.DS ---
DS: Admitting Diagnosis Discharge Date 01/14/24 Admitting Diagnosis AMS DS: Discharge Diagnosis Discharge Diagnosis (1) Sepsis: Code(s): A41.9 - Sepsis, unspecified organism Status: Acute (2) Acute UTI: Code(s): N39.0 - Urinary tract infection, site not specified Status: Acute (3) Elevated troponin: Code(s): R79.89 - Other specified abnormal findings of blood chemistry Status: Acute (4) COPD (chronic obstructive pulmonary disease): Code(s): J44.9 - Chronic obstructive pulmonary disease, unspecified Status: Acute (5) Atrial fibrillation: Code(s): I48.91 - Unspecified atrial fibrillation Status: Acute (6) AMS (altered mental status): Code(s): R41.82 - Altered mental status, unspecified Status: Acute DS: Summary Hospital Course Hospital Course: Patient is seen by oyster harvester with atrial fibrillation patient is on amiodarone and anticoagulated with Eliquis the oyster harvester and metoprolol to control rate, concern for sepsis suspected UTI growing E coli patient is being treated with Cefepime and vancomycin, urine culture is growing E. coli multiresistant and blood culture no growth sofar. will discharge patient on Macrobid, Patient states feeling little better compared to when she arrived not as short of breath, will discharge patient today. Time Spent with Patient Time attestation: Total time spent providing and/or coordinating discharge services: Exam Narrative: Patient is comfortable, NAD HEENT: eyes are clear and none icteric LUNGS:CTA HEART: RR S1S2 ABD: BS+, Soft and nontender Lower extremities: no edema SKIN: nonjaundiced Neuro: grossly intact. DS: Data Data Completed and Pending Labs on day of discharge: Labs from last 24 hours 01/14/24 01/14/24 01/14/24 12:02 07:40 04:37 WBC 8.3 RBC 3.51 L Hgb 10.7 L Hct 34.6 L MCV 98.6 MCH 30.5 MCHC 30.9 L RDW 14.6 H Plt Count 143 L MPV 10.8 H Sodium 137 Potassium 3.3 L Chloride 104 Carbon Dioxide 29 Anion Gap 4 BUN 15 D Creatinine 0.50 L Estim Creat Clear Calc 106 Estimated GFR > 60 Glucose 157 H POC Capillary Glucose 260 H 142 H Calcium 8.4 Magnesium 2.3 01/13/24 01/13/24 21:23 15:58 WBC RBC Hgb Hct MCV MCH MCHC RDW Plt Count MPV Sodium Potassium Chloride Carbon Dioxide Anion Gap BUN Creatinine Estim Creat Clear Calc Estimated GFR Glucose POC Capillary Glucose 229 H 303 H Calcium Magnesium Preliminary micro results at discharge 01/10/24 23:16 Blood Culture - Preliminary Blood 01/10/24 23:14 Blood Culture - Preliminary Blood Discharge Plan Discharge Attending physician on discharge: Ingris Swain V. Consulting providers: Tristin Cottrell; Abe Aguirre; Shahab Fernandez; Hitesh Azar V.; Connor Melvin; Rm Bishop Discharging Clinician: Hiwot Akbar Patient Disposition: SNF Activity: as tolerated Diet: heart healthy Discharge Instructions: AFIB, PNEUMONIA patient to follow up with her oyster harvester as scheduled and follow up with her primary care provider as soon as possible. patient is instructed if any symptoms worsen to go to nearest ER. Patient Instructions: Heart Failure (GEN), A-fib (Atrial Fibrillation) (DC), Pain Management (DC), Hypotension (DC) Stand Alone Forms: General Discharge Information Follow-up/Referrals: Rm Bishop DO [Physician] - Reji Canas MD [Primary Care Provider] - Discharge Medications: New amiodarone [Pacerone] 200 mg Tablet 200 mg PO BID Qty: 60 0RF Eliquis 5 mg Tablet 5 mg PO Q12HR Qty: 60 0RF aspirin [Children's Aspirin] 81 mg Tablet,Chewable 81 mg PO DAILY@0800 Qty: 30 0RF losartan 25 mg tablet 12.5 mg PO DAILY Qty: 30 0RF metoprolol tartrate 25 mg tablet 12.5 mg PO BID Qty: 30 0RF micona
[2024-01-14] MEDS: POTASSIUM CHLORIDE 20 MEQ PACKET (FOR LIQUID) 40 MEQ PO (14:26)
[2024-01-14 16:30] LABS: SARS-CoV-2 RNA PCR Negative (Negative)
== END 2024-01-14 17:10 | DRG 871 ==
LOC: ANHED 01-11 03:30 → ANHIMU 01-11 03:50
PROVIDERS: Internal Medicine; Admitting Provider Internal Medicine; Emergency Provider Emergency Medicine; PCP Hospitalist; Visit Provider Family Medicine
DX: A41.9 Sepsis, unspecified organism (principal); I50.23 Acute on chronic systolic (congestive) heart failure; J18.9 Pneumonia, unspecified organism; N39.0 Urinary tract infection, site not specified; I24.89 Other forms of acute ischemic heart disease; J44.0 Chronic obstructive pulmonary disease with (acute) lower respiratory infection; I48.91 Unspecified atrial fibrillation; B96.20 Unspecified Escherichia coli [E. coli] as the cause of diseases classified elsewhere; E11.42 Type 2 diabetes mellitus with diabetic polyneuropathy; E66.01 Morbid (severe) obesity due to excess calories; Z20.822 Contact with and (suspected) exposure to COVID-19; Z11.52 Encounter for screening for COVID-19; Z79.4 Long term (current) use of insulin; Z85.3 Personal history of malignant neoplasm of breast; Z74.01 Bed confinement status
CPT/HCPCS: 36415; 36600; 71045; 71250; 80048; 80053; 80061; 80202; 81001; 82565; 82805; 82810; 82948; 83036; 83605; 83735; 83880; 84484; 85025; 85027; 85610; 85730; 86850; 86900; 86901; 87040; 87077; 87086; 87088; 87186; 87635; 87637; 87641; 93005; 94002; 94003; 94640; 96361; 96365; 96367; 96372; 96374; 96375; 99285; A9270; C8929; G0378; G0379; J0153; J0282; J0456; J0692; J0696; J1650; J1815; J1940; J2060; J2270; J3370; J7030; J7040; J7512; Q9957

== ENCOUNTER 2024-02-09 21:18 | Inpatient (IN) | payer MEDICARE, MEDICAID, SELFPAY ==
--- NOTE | ~2024-02-09 | CT_ITS ---
EXAMINATION: CT brain wo con DATE: 02/09/2024 23:12 INDICATION: Hallucination TECHNIQUE: Computed tomography (CT) of the head was performed without intravenous contrast. Sagittal and coronal reconstructions were performed. The mA was adjusted according to patient size. Iterative reconstruction technique was employed. The dose-length product was 681.00 mGy-cm. COMPARISON: None FINDINGS: No acute intracranial hemorrhage, acute infarction or abnormal extra axial fluid collection. There is mild scattered white matter hypoattenuation consistent with chronic small vessel ischemic disease. S ymmetric prominence of the sulci consistent with mild to moderate age-appropriate diffuse cerebral vo lume loss. Ventricles are normal and symmetric. No mass/mass effect. Changes of bilateral intraocula r lens replacement. Mild mucosal thickening the bilateral ethmoid and maxillary sinuses. There are bi lateral mastoid effusions. IMPRESSION: 1. Normal aging brain. No acute intracranial process. 2. Bilateral otomastoiditis effusions. Reviewed, dictated and finalized at location A.
--- NOTE | ~2024-02-09 | XR_ITS ---
EXAMINATION: XR chest 1V portable DATE: 02/09/2024 22:38 INDICATION: Chest pain TECHNIQUE: frontal view of the chest was obtained. COMPARISON: Chest radiograph dated 01/12/2024 FINDINGS: Left internal jugular central venous port catheter with distal tip at the cephalad superior vena cava . Emphysema with prominent lucency in the right mid to upper lung zone corresponding to a single larg e bulla on prior CT. Calcified nodules in the right midlung zone and calcified right hilar and medias tinal lymph nodes consistent with old granulomatous disease. No other airspace opacities, pulmonary e oswaldo, pleural effusion or pneumothorax. Heart size is within normal limits for AP technique. Old heal ed fracture at the left humeral neck. IMPRESSION: 1. Emphysema. Reviewed, dictated and finalized at location A. IMPRESSION: 1. Emphysema.
--- NOTE | ~2024-02-09 | CT_ITS ---
EXAMINATION: CTA chest abdomen DATE: 02/09/2024 23:13 INDICATION: Chest and abdominal pain, shortness of breath and hypotension. TECHNIQUE: Computed tomographic angiography (CTA) of the chest and abdomen was performed without and with 100 mL Omnipaque-350 intravenous contrast. Volume-rendered 3D-reconstructions of the aorta and l arge arteries were constructed by the technologist on a separate workstation. Automated exposure cont rol and iterative reconstruction technique were employed. The dose-length product was mGy-cm. COMPARISON: Chest CT dated 01/11/[address] abdomen and pelvis dated 10/28/2023 FINDINGS: Chest: Moderate emphysema but with very large bulla occupying a significant portion of the anterior right mi d to upper hemithorax. Dependent atelectasis in bilateral lower lobes. Calcified right upper lobe nod ules and calcified right hilar and mediastinal lymph nodes consistent with old granulomatous disease. No pneumonia, pulmonary edema, pleural effusion or pneumothorax. Heart size is normal. Small pericar dial effusion. Atherosclerotic coronary artery calcification is. Small amount of aortic valve calcifi c lesion. Thoracic aorta is normal in caliber with no dissection. Left internal jugular central venou s port catheter with distal tip at the cephalad superior vena cava. No pathologically enlarged thorac ic lymphadenopathy. Chronic T2 and T12 compression fractures. Abdomen: Hepatic and splenic calcification consistent with old granulomatous disease. Nodular liver surface co nsistent with cirrhosis. Sagittal fat attenuation gallstones at the neck of the otherwise normal-appe aring gallbladder with no wall thickening or pericholecystic comparison to suggest acute cholecystiti s. Pancreas and left adrenal gland are normal. 4.7 x 2.6 cm right adrenal mass with slightly negative Hounsfield units on prior noncontrast chest CT consistent with an adenoma. Bilateral renal cysts the largest on the left measuring 3.4 cm. Visualized portions of bowels are unremarkable. Minimal ascite s along the small bowel mesentery in the central abdomen and at the inferior right paracolic gutter.. Small amount of nonhemodynamically significant atherosclerotic plaque along the infrarenal abdominal aorta. No abdominal aortic aneurysm or dissection. No pathologically enlarged abdominal or upper pel priscila lymphadenopathy. Chronic L1 burst fracture unchanged since 10/28/2023 IMPRESSION: 1. Normal caliber aorta with no aneurysm or dissection. No other acute intrathoracic or abdominal pro cess. 2. Moderate emphysema with large bulla occupying a significant portion of the anterior left mid and u pper hemithorax. 3. Unchanged small pericardial effusion. 4. Cirrhosis minimal ascites. 5. Cholelithiasis. Reviewed, dictated and finalized at location A. IMPRESSION: 1. Normal caliber aorta with no aneurysm or dissection. No other acute intratho racic or abdominal process. 2. Moderate emphysema with large bulla occupying a significant portion of the a nterior left mid and upper hemithorax. 3. Unchanged small pericardial effusion. 4. Cirrhosis minimal ascites. 5. Cholelithiasis.
--- NOTE | ~2024-02-09 | US_ITS ---
RIGHT UPPER EXTREMITY VENOUS ULTRASOUND Ordering provider: Fede Murillo MD History: . Swollen, red upper arm . Comparison: None. FINDINGS: --JUGULAR: Patent and free of thrombus. Normal compressibility, phasic flow and augmentation. --SUBCLAVIAN: Patent and free of thrombus. Normal compressibility, phasic flow and augmentation. --AXILLARY: Patent and free of thrombus. Normal compressibility, phasic flow and augmentation. --BRACHIAL: Patent and free of thrombus. Normal compressibility, phasic flow and augmentation. --CEPHALIC: Patent and free of thrombus. Normal compressibility, phasic flow and augmentation. --BASILIC: Patent and free of thrombus. Normal compressibility, phasic flow and augmentation. --RADIAL: Patent and free of thrombus. Normal compressibility, phasic flow and augmentation. --ULNAR: Patent and free of thrombus. Normal compressibility, phasic flow and augmentation. IMPRESSION: Negative right upper extremity venous US. No deep vein thrombosis. Reviewed, dictated and finalized at location A.
[2024-02-09 21:18] VITALS: BP 94/54; PULSE 63; RESP 15; TEMP 36.8; O2SAT 96
--- NOTE | 2024-02-09 21:28 | ECG_ITS ---
Test Date: 2024-02-09 21:37:37 Measurements Intervals [place] Rate: 63 P: 100 ME: 172 QRS: 5 QRSD: 101 T: 140 QT: 449 QTc: 460 Interpretive Statements SINUS RHYTHM MODERATE T-WAVE ABNORMALITY, CONSIDER LATERAL ISCHEMIA [-0.1+ mV T-WAVE IN I/aVL/V5/V6] ABNORMAL ECG Compared to ECG 01/14/2024 09:39:16 Atrial premature complex(es) no longer present T-wave abnormality still present Possible ischemia still present Electronically Signed On 02-10-2024 10:19:37 CDT by Raghav Interiano M.D.
[2024-02-09 21:30] VITALS: PULSE 63; O2SAT 99
[2024-02-09] MEDS: SODIUM CHLORIDE 0.9% IV 1,000 ML 999 ML IV CONT (21:38)
[2024-02-09 21:53] LABS: Basophils Percent Auto 0.2 % (0.2-1.2); Eosinophils Percent Auto 0.2 % (0-4.4); Hematocrit 32.6 % (37.0-47.0); Hemoglobin 9.7 g/dL (12.0-15.0); Immature Granulocyte Absolute 0.04 K/mm3 (0.00-0.031); Immature Granulocyte Percent A 0.4 % (0-0.5); Lymphocytes Absolute Auto 1.79 K/mm3 (0.9-3.2); Lymphocytes Percent Auto 19.1 % (18.3-44.2); Mean Corpuscular HGB Conc 29.8 g/dl (32-36); Mean Corpuscular Hemoglobin 29.2 pg (26-34); Mean Corpuscular Volume 98.2 fl (80-100); Mean Platelet Volume 10.2 fl (7.4-10.4); Monocytes Absolute Auto 0.7 K/mm3 (0.1-0.6); Monocytes Percent Auto 7.9 % (2.6-8.5); Neutrophils Absolute Auto 6.8 K/mm3 (1.3-6.7); Neutrophils Percent Auto 72.2 % (45.5-73.1); Platelet Count Result 206 k/mm3 (150-375); Red Blood Count 3.32 M/mm3 (4.2-5.4); Red Cell Distribution Width 14.5 % (11.5-14.5); White Blood Count 9.4 K/mm3 (4.5-10.0)
[2024-02-09 22:05] LABS: Alanine Aminotransferase 32 U/L (6-35); Albumin Level 3.2 g/dL (3.5-5.1); Alkaline Phosphatase 74 U/L (38-126); Anion Gap 4 mmol/L (4-12); Aspartate Amino Transferase 46 U/L (14-36); Bilirubin,Total 0.2 mg/dL (0.2-1.3); Blood Urea Nitrogen 21 mg/dL (7-17); Calcium 8.1 mg/dL (8.4-10.2); Carbon Dioxide 36 mmol/L (22-30); Chloride 98 mmol/L (98-107); Estimated CRCL calculation 60 ml/min; Estimated Glomerular Filt Rate 54; Glucose 146 mg/dL (65-110); Lipase 89 U/L (23-300); Potassium 4.1 mmol/L (3.4-5.0); Sodium 138 mmol/L (137-145)
[2024-02-09 22:10] LABS: INR 1.5; Prothrombin Time 18.8 Seconds (11.1-14.7)
[2024-02-09 22:11] LABS: Partial Thromboplastin Time 30.3 Seconds (22.3-36.8)
[2024-02-09 22:15] LABS: D Dimer < 0.27 ug/mL (<0.48); NT Pro B Type Natriuretic Pept 669 pg/mL (19.9-100); Troponin I < 0.012 ng/mL (0.000-0.034)
[2024-02-09 22:21] LABS: Magnesium 2.1 mg/dL (1.6-2.3)
[2024-02-09 22:28] LABS: Influenza A QL RT-PCR Negative (Negative); Influenza B QL RT-PCR Negative (Negative); RSV RNA, RT-PCR Negative (Negative); SARS-CoV-2 RNA PCR Negative (Negative)
[2024-02-09 22:48] LABS: Lactic Acid Reflex 1.7 mmol/L (0.7-2.0)
[2024-02-09 23:15] VITALS: BP 94/68; PULSE 65; RESP 15; O2SAT 99
--- NOTE | 2024-02-09 23:40 | ED.CHESTPAIN ---
HPI - Chest Pain General Chief Complaint: Chest Pain <ARNAUD Mauro Last Filed: 02/10/24 02:22> Stated Complaint: sob/cp/hallucination <ARNAUD Mauro Last Filed: 02/10/24 02:22> Time Seen by Provider: 02/09/24 21:28 <ARNAUD Mauro Last Filed: 02/10/24 02:22> Source: patient <ARNAUD Mauro Last Filed: 02/10/24 02:22> Mode of arrival: EMS <ARNAUD Mauro Last Filed: 02/10/24 02:22> Limitations: no limitations <ARNAUD Mauro Last Filed: 02/10/24 02:22> History of Present Illness HPI narrative: Patient is a 73-year-old female who presents the ED via EMS with multiple complaints. Patient is a resident of [facility]. Reports she has not felt well over the last several days. Complains of chest tightness, shortness of breath, cough. History of COPD. Has chronic oxygen requirement of 3 L nasal cannula. Also reports pain throughout upper abdomen, denies known fevers, nausea, vomiting, diarrhea. retirement staff also reported that patient has been increasingly confused over last few days and was hallucinating today. Was reportedly talking to her son who was not there and her who has . Patient was noted to be hypotensive EN route to the ED by EMS. Started on fluids. <ARNAUD Mauro Last Filed: 02/10/24 02:22> Related Data Home Medications: Home Medications Medication Instructions Recorded Confirmed acetaminophen 650 mg tablet 650 mg PO TID 10/28/23 02/10/24 albuterol sulfate 90 mcg/actuation 2 puff inhalation Q4H PRN S.O.B 10/28/23 02/10/24 aerosol inhaler aripiprazole 2 mg tablet 2 mg PO DAILY 10/28/23 02/10/24 aripiprazole 5 mg tablet 5 mg PO DAILY 10/28/23 02/10/24 buspirone 10 mg tablet 10 mg PO TID 10/28/23 02/10/24 cholecalciferol (vitamin D3) 25 25 mcg PO DAILY 10/28/23 02/10/24 mcg (1,000 unit) capsule (Vitamin D3) escitalopram oxalate 10 mg tablet 20 mg PO DAILY 10/28/23 02/10/24 ferrous sulfate 325 mg (65 mg 325 mg PO DAILY 10/28/23 02/10/24 iron) tablet furosemide 40 mg tablet 40 mg PO DAILY 10/28/23 02/10/24 gabapentin 600 mg tablet 600 mg PO TID 10/28/23 02/10/24 insulin aspart U-100 100 unit/mL See Rx Instructions .Route .COMPLEX 10/28/23 02/10/24 (3 mL) subcutaneous pen lorazepam 0.5 mg tablet 0.5 mg PO QHS 10/28/23 02/10/24 memantine 10 mg tablet 10 mg PO BID 10/28/23 02/10/24 metformin 500 mg tablet 500 mg PO DAILY 10/28/23 02/10/24 primidone 50 mg tablet 50 mg PO BID 10/28/23 02/10/24 ropinirole 0.5 mg tablet 0.5 mg PO QHS 10/28/23 02/10/24 tamoxifen 20 mg tablet 20 mg PO DAILY 10/28/23 02/10/24 tramadol 50 mg tablet 50 mg PO QID 10/28/23 02/10/24 trazodone 50 mg tablet 50 mg PO QHS 10/28/23 02/10/24 aluminum-mag hydroxide-simethicone 5 ml PO Q6H PRN Heartburn 01/11/24 02/10/24 400 mg-400 mg-40 mg/5 mL oral susp (Maalox Maximum Strength) calcium carbonate 400 mg PO Q8H PRN Heartburn 01/11/24 02/10/24 cyanocobalamin (vitamin B-12) 250 250 mcg PO DAILY 01/11/24 02/10/24 mcg tablet guaifenesin 600 mg tablet,extended 600 mg PO BID 01/11/24 02/10/24 release ipratropium 0.5 mg-albuterol 3 mg 3 ml inhalation Q6H PRN 01/11/24 02/10/24 (2.5 mg base)/3 mL nebulization sob/wheezing soln magnesium hydroxide 2,400 mg/10 mL 30 ml PO DAILY PRN Constipation 01/11/24 02/10/24 oral suspension (Milk Of Magnesia Concentrated) multivitamin with minerals 1 tablet PO DAILY 01/11/24 02/10/24 (Multiple Vitamin-Minerals tablet) naloxone 4 mg/actuation nasal 1 spray intranasal Q2-3M PRN 01/11/24 02/10/24 spray (Narcan) Opiate Reversal ondansetron 4 mg disintegrating 4 mg PO Q8H PRN Nausea And Vomiting 01/11/24 02/10/24 tablet pantoprazole 40 mg tablet,delayed 40 mg PO QAM 01/11/24 02/10/24 release polyethylene glycol 3350 17 17 g PO HS PRN Constipation 01/11/24 02/10/24 gram/dose oral powder (Miralax) pyridoxine (vitamin B6) 25 mg 25 mg PO DAILY 01/11/24 02/10/24 tablet sennosides 8.6 mg tablet (senna) 8.6 mg PO BID 01/11/24 02/10/24 <Mayra Rivera PA-C - Last Filed: 02/10/24 02:22> Allergies/Adverse Reactions: Allergies Allergy/AdvReac Type Severity Reaction Status Date / Time amoxicillin [From Augmentin] Allergy Unknown Verified 01/13/24 09:57 clavulanic acid Allergy Unknown Verified 01/13/24 09:57 [From Augmentin] <Mayra Rivera PA-C - Last Filed: 02/10/24 02:22> Review of Systems Review of Systems: All systems reviewed & are unremarkable except as noted in HPI. <Mayra Rivera PA-C - Last Filed: 02/10/24 02:22> All systems reviewed & are unremarkable except as noted in HPI and below <Mayra Rivera PA-C - Last Filed: 02/10/24 02:22> [facility] Past Medical History Medical History: Medical History COPD (chronic obstructive pulmonary disease) Diabetes <Mayra Rivera PA-C - Last Filed: 02/10/24 02:22> Surgical History Surgical History: Surgical History No significant past surgical history <Mayra Rivera PA-C - Last Filed: 02/10/24 02:22> Social History Social History: Social History Smoking status: Never smoker Second hand tobacco smoke exposure: No Alcohol intake: never Substance use: never Do You Feel Safe in your Home?: Yes Lack of Transportation: No Lack of Food: Never True Current Housing: I Have Housing Concerned About Future Housing: No Difficulty Paying Gas/Electric Bills: No Difficulty Paying for Meds: No Currently Unemployed: No Education: High School Diploma/GED Difficulty w/ Childcare or Family Care: No Spiritual care concerns: No <Mayra Rivera PA-C - Last Filed: 02/10/24 02:22> Exam Narrative: GENERAL: Chronically ill-appearing, morbidly obese with BMI of 43.9, non-toxic, in no acute distress. HEAD: Normocephalic, atraumatic. RESPIRATORY: Airway patent, respirations nonlabored. Decreased lung sounds in bases bilaterally. Occasional expiratory wheezing heard bilaterally. On 3 L nasal cannula. CARDIOVASCULAR: Regular rate and rhythm without murmurs, rubs, or gallops. ABDOMINAL: Soft, mild tenderness over upper abdomen, nondistended. Normoactive BS. MUSCULOSKELETAL: Moves all extremities. No gross deformities. Mild tenderness to palpation across midsternal chest wall. Trace peripheral edema. Small dime-sized pressure wound to sacrum with superficial skin involvement, no exposed bone, muscle. No drainage. No surrounding erythema. SKIN: Warm, dry, normal color. NEURO: A&O X3. Speech clear. Cranial nerves II-XII grossly intact. No ataxic movements. No gross focal deficits. PSYCHIATRIC: Appropriate mood and affect. Normal interaction. <Mayra Rivera PA-C - Last Filed: 02/10/24 02:22> Course OLDER ADULT SOCIAL WORK SPECIALIST/PA Physician Supervision For this patient encounter, I reviewed the OLDER ADULT SOCIAL WORK SPECIALIST or PA documentation, treatment plan, and medical decision making and had [id number] time with this patient. I performed all aspects of the MDM as documented. <Lucille Valenzuela MD - Last Filed: 02/10/24 02:42> Vital Signs Vital signs: Vital Signs Temperature 98.2 F 02/09/24 21:18 Pulse Rate 63 02/09/24 21:18 Respiratory Rate 15 02/09/24 21:18 Blood Pressure 94/54 L 02/09/24 21:18 Pulse Oximetry 96 02/09/24 21:18 Oxygen Delivery Nasal Cannula 02/09/24 21:18 Oxygen Flow Rate 3 02/09/24 21:18 Temperature 97.7 F 02/10/24 02:28 Pulse Rate 75 02/10/24 02:28 Respiratory Rate 15 02/10/24 02:28 Blood Pressure 139/79 02/10/24 02:28 Pulse Oximetry 97 02/10/24 02:28 Oxygen Delivery Nasal Cannula 02/09/24 21:30 Oxygen Flow Rate 3 02/09/24 21:30 <Mayra Rivera PA-C - Last Filed: 02/10/24 02:22> Vital Signs Temperature 98.2 F 02/09/24 21:18 Pulse Rate 63 02/09/24 21:18 Respiratory Rate 15 02/09/24 21:18 Blood Pressure 94/54 L 02/09/24 21:18 Pulse Oximetry 96 02/09/24 21:18 Oxygen Delivery Nasal Cannula 02/09/24 21:18 Oxygen Flow Rate 3 02/09/24 21:18 Temperature 97.7 F 02/10/24 02:28 Pulse Rate 75 02/10/24 02:28 Respiratory Rate 15 02/10/24 02:28 Blood Pressure 139/79 02/10/24 02:28 Pulse Oximetry 97 02/10/24 02:28 Oxygen Delivery Nasal Cannula 02/09/24 21:30 Oxygen Flow Rate 3 02/09/24 21:30 <Lucille Valenzuela MD - Last Filed: 02/10/24 02:42> MDM - Chest Pain MDM Narrative Medical decision making narrative: Patient presented to ED with multiple complaints, several day history of shortness of breath, chest tightness, cough, also reporting hallucinations over the last few days per snf report. Patient hypotensive upon arrival. BP in the 90s systolic. Fluids initiated. Vitals are otherwise stable. Oxygen stable on her chronic 3 L nasal cannula. She is afebrile here. Sepsis workup was initiated. Hx copd, given neb tx and steroids. CBC is without leukocytosis. Mild anemia noted. CMP is fairly unremarkable. Stable kidney function. Stable electrolytes. Total protein and albumin are slightly low. Fluids ongoing. Lactic acid within normal limits at 1.7. Blood glucose 146. EKG is without concerning ischemic changes. Showing nonspecific T-wave inversions. Baseline troponin is undetectable. Will continue to trend. BNP is minimally elevated to 669. D-dimer is within normal limits. Viral swabs are negative. CTA of chest/abdomen/pelvis was obtained and no evidence of aortic pathology, dissection, pneumonia. Does show emphysematous changes with large bullae in L lung. No intra-abdominal findings. Brain CT was obtained and without acute findings. Urinalysis with trace ketones, no signs of infection. Patient was given fluids in the ED with some improvement of blood pressure into the upper 90s/low 100s systolic, however she did have very variable blood pressures, and later again dropped down into the 70s. Unclear etiology to this at this time. No infectious findings on workup. W/u is relatively unremarkable. I did notice hemoglobin appeared to be slightly downtrending over recent records in past few months. Was in 12-13 range in October. Now down to 9.7. Patient denies any known bleeding. She is on Eliquis d/t hx of AFIB. Rectal exam was performed in the ED and with brown stool which was guaiac positive. Additional L of fluids ordered. Will also order 1 unit packed red blood cells given GI bleeding in the setting of hypotension. No signs of acute hemorrhage on exam. Stool is brown. No gross rectal bleeding. Patient will be admitted for further evaluation and management. Discussed case with Dr. Daly, GI, will consult. Discussed case with Dr. Swain, hospitalist, accepted patient for admission to IMU. Advised to start blood in the ED to ensure BP stabilizes. Patient is in agreement with plan and need for admission. <Mayra Rivera PA-C - Last Filed: 02/10/24 02:22> Medical Records Data Attestation: I reviewed the patient's medical records. <Mayra Rivera PA-C - Last Filed: 02/10/24 02:22> Lab Data Attestation: I reviewed the patient's lab results. <Mayra Rivera PA-C - Last Filed: 02/10/24 02:22> Result diagrams: 02/09/24 21:46 02/09/24 21:46 <Mayra Rivera PA-C - Last Filed: 02/10/24 02:22> Labs: Lab Results 02/09/24 02/09/24 02/09/24 Range/Units 21:46 22:26 23:32 WBC 9.4 (4.5-10.0) K/mm3 RBC 3.32 L (4.2-5.4) M/mm3 Hgb 9.7 L (12.0-15.0) g/dL Hct 32.6 L (37.0-47.0) % MCV 98.2 (80-100) fl MCH 29.2 (26-34) pg MCHC 29.8 L (32-36) g/dl RDW 14.5 (11.5-14.5) % Plt Count 206 (150-375) k/mm3 MPV 10.2 (7.4-10.4) fl Immature Gran % (Auto) 0.4 (0-0.5) % Neut % (Auto) 72.2 (45.5-73.1) % Lymph % (Auto) 19.1 (18.3-44.2) % [place] % (Auto) 7.9 (2.6-8.5) % Eos % (Auto) 0.2 (0-4.4) % Baso % (Auto) 0.2 (0.2-1.2) % Lymph # (Auto) 1.79 (0.9-3.2) K/mm3 [place] # (Auto) 0.7 H (0.1-0.6) K/mm3 Eos # (Auto) 0.0 (0-0.3) K/mm3 Baso # (Auto) 0.0 (0.0-0.1) K/mm3 Abs Immat Gran (auto) 0.04 H (0.00-0.031) K/mm3 Absolute Neuts (auto) 6.8 H (1.3-6.7) K/mm3 Absolute Nucleated RBC 0.000 (0.0-0.012) K/mm3 Nucleated RBC % 0.0 (0.0-0.2) % PT 18.8 H (11.1-14.7) Seconds INR 1.5 APTT 30.3 (22.3-36.8) Seconds D-Dimer < 0.27 (<0.48) ug/mL Sodium 138 (137-145) mmol/L Potassium 4.1 (3.4-5.0) mmol/L Chloride 98 (98-107) mmol/L Carbon Dioxide 36 H (22-30) mmol/L Anion Gap 4 (4-12) mmol/L BUN 21 H (7-17) mg/dL Creatinine 1.00 (0.7-1.0) mg/dL Estim Creat Clear Calc 60 ml/min Estimated GFR 54 L (59 - ) Glucose 146 H (65-110) mg/dL POC Capillary Glucose (65-105) mg/dl Lactic Acid 1.7 (0.7-2.0) mmol/L Calcium 8.1 L (8.4-10.2) mg/dL Magnesium 2.1 (1.6-2.3) mg/dL Total Bilirubin 0.2 (0.2-1.3) mg/dL AST 46 H (14-36) U/L ALT 32 (6-35) U/L Alkaline Phosphatase 74 (38-126) U/L Troponin I < 0.012 (0.000-0.034) ng/mL NT-Pro-B Natriuret Pep 669 H (19.9-100) pg/mL Total Protein 6.0 L (6.3-8.2) g/dL Albumin 3.2 L (3.5-5.1) g/dL Lipase 89 (23-300) U/L Urine Color Yellow (Yellow) Urine Appearance Clear (Clear) Urine pH 6.5 (5.0-9.0) Ur Specific [place] 1.031 (1.001-1.035) Urine Protein Negative (Negative) mg/dL Urine Glucose (UA) Negative (Negative) mg/dL Urine Ketones Trace H (Negative) mg/dL Ur Blood (Man) Negative (Negative) Urine Nitrate Negative (Negative) Urine Bilirubin Negative (Negative) Urine Urobilinogen 1.0 (<2.0) mg/dL Leukocyte Esterase Rfl Negative (Negative) JACE/UL Influenza A (RT-PCR) Negative (Negative) Influenza B (RT-PCR) Negative (Negative) RSV (RT-PCR) Negative (Negative) SARS-CoV-2 RNA (RT-PCR) Negative (Negative) Blood Type Antibody Screen Crossmatch 02/10/24 02/10/24 Range/Units 00:45 01:35 WBC (4.5-10.0) K/mm3 RBC (4.2-5.4) M/mm3 Hgb (12.0-15.0) g/dL Hct (37.0-47.0) % MCV (80-100) fl MCH (26-34) pg MCHC (32-36) g/dl RDW (11.5-14.5) % Plt Count (150-375) k/mm3 MPV (7.4-10.4) fl Immature Gran % (Auto) (0-0.5) % Neut % (Auto) (45.5-73.1) % Lymph % (Auto) (18.3-44.2) % [place] % (Auto) (2.6-8.5) % Eos % (Auto) (0-4.4) % Baso % (Auto) (0.2-1.2) % Lymph # (Auto) (0.9-3.2) K/mm3 [place] # (Auto) (0.1-0.6) K/mm3 Eos # (Auto) (0-0.3) K/mm3 Baso # (Auto) (0.0-0.1) K/mm3 Abs Immat Gran (auto) (0.00-0.031) K/mm3 Absolute Neuts (auto) (1.3-6.7) K/mm3 Absolute Nucleated RBC (0.0-0.012) K/mm3 Nucleated RBC % (0.0-0.2) % PT (11.1-14.7) Seconds INR APTT (22.3-36.8) Seconds D-Dimer (<0.48) ug/mL Sodium (137-145) mmol/L Potassium (3.4-5.0) mmol/L Chloride (98-107) mmol/L Carbon Dioxide (22-30) mmol/L Anion Gap (4-12) mmol/L BUN (7-17) mg/dL Creatinine (0.7-1.0) mg/dL Estim Creat Clear Calc ml/min Estimated GFR (59 - ) Glucose (65-110) mg/dL POC Capillary Glucose 127 H (65-105) mg/dl Lactic Acid (0.7-2.0) mmol/L Calcium (8.4-10.2) mg/dL Magnesium (1.6-2.3) mg/dL Total Bilirubin (0.2-1.3) mg/dL AST (14-36) U/L ALT (6-35) U/L Alkaline Phosphatase (38-126) U/L Troponin I 0.013 (0.000-0.034) ng/mL NT-Pro-B Natriuret Pep (19.9-100) pg/mL Total Protein (6.3-8.2) g/dL Albumin (3.5-5.1) g/dL Lipase (23-300) U/L Urine Color (Yellow) Urine Appearance (Clear) Urine pH (5.0-9.0) Ur Specific [place] (1.001-1.035) Urine Protein (Negative) mg/dL Urine Glucose (UA) (Negative) mg/dL Urine Ketones (Negative) mg/dL Ur Blood (Man) (Negative) Urine Nitrate (Negative) Urine Bilirubin (Negative) Urine Urobilinogen (<2.0) mg/dL Leukocyte Esterase Rfl (Negative) JACE/UL Influenza A (RT-PCR) (Negative) Influenza B (RT-PCR) (Negative) RSV (RT-PCR) (Negative) SARS-CoV-2 RNA (RT-PCR) (Negative) Blood Type O Positive Antibody Screen Negative Crossmatch See Detail <Mayra Rivera PA-C - Last Filed: 02/10/24 02:22> Lab Results 02/09/24 02/09/24 02/09/24 Range/Units 21:46 22:26 23:32 WBC 9.4 (4.5-10.0) K/mm3 RBC 3.32 L (4.2-5.4) M/mm3 Hgb 9.7 L (12.0-15.0) g/dL Hct 32.6 L (37.0-47.0) % MCV 98.2 (80-100) fl MCH 29.2 (26-34) pg MCHC 29.8 L (32-36) g/dl RDW 14.5 (11.5-14.5) % Plt Count 206 (150-375) k/mm3 MPV 10.2 (7.4-10.4) fl Immature Gran % (Auto) 0.4 (0-0.5) % Neut % (Auto) 72.2 (45.5-73.1) % Lymph % (Auto) 19.1 (18.3-44.2) % [place] % (Auto) 7.9 (2.6-8.5) % Eos % (Auto) 0.2 (0-4.4) % Baso % (Auto) 0.2 (0.2-1.2) % Lymph # (Auto) 1.79 (0.9-3.2) K/mm3 [place] # (Auto) 0.7 H (0.1-0.6) K/mm3 Eos # (Auto) 0.0 (0-0.3) K/mm3 Baso # (Auto) 0.0 (0.0-0.1) K/mm3 Abs Immat Gran (auto) 0.04 H (0.00-0.031) K/mm3 Absolute Neuts (auto) 6.8 H (1.3-6.7) K/mm3 Absolute Nucleated RBC 0.000 (0.0-0.012) K/mm3 Nucleated RBC % 0.0 (0.0-0.2) % PT 18.8 H (11.1-14.7) Seconds INR 1.5 APTT 30.3 (22.3-36.8) Seconds D-Dimer < 0.27 (<0.48) ug/mL Sodium 138 (137-145) mmol/L Potassium 4.1 (3.4-5.0) mmol/L Chloride 98 (98-107) mmol/L Carbon Dioxide 36 H (22-30) mmol/L Anion Gap 4 (4-12) mmol/L BUN 21 H (7-17) mg/dL Creatinine 1.00 (0.7-1.0) mg/dL Estim Creat Clear Calc 60 ml/min Estimated GFR 54 L (59 - ) Glucose 146 H (65-110) mg/dL POC Capillary Glucose (65-105) mg/dl Lactic Acid 1.7 (0.7-2.0) mmol/L Calcium 8.1 L (8.4-10.2) mg/dL Magnesium 2.1 (1.6-2.3) mg/dL Total Bilirubin 0.2 (0.2-1.3) mg/dL AST 46 H (14-36) U/L ALT 32 (6-35) U/L Alkaline Phosphatase 74 (38-126) U/L Troponin I < 0.012 (0.000-0.034) ng/mL NT-Pro-B Natriuret Pep 669 H (19.9-100) pg/mL Total Protein 6.0 L (6.3-8.2) g/dL Albumin 3.2 L (3.5-5.1) g/dL Lipase 89 (23-300) U/L Urine Color Yellow (Yellow) Urine Appearance Clear (Clear) Urine pH 6.5 (5.0-9.0) Ur Specific [place] 1.031 (1.001-1.035) Urine Protein Negative (Negative) mg/dL Urine Glucose (UA) Negative (Negative) mg/dL Urine Ketones Trace H (Negative) mg/dL Ur Blood (Man) Negative (Negative) Urine Nitrate Negative (Negative) Urine Bilirubin Negative (Negative) Urine Urobilinogen 1.0 (<2.0) mg/dL Leukocyte Esterase Rfl Negative (Negative) JACE/UL Influenza A (RT-PCR) Negative (Negative) Influenza B (RT-PCR) Negative (Negative) RSV (RT-PCR) Negative (Negative) SARS-CoV-2 RNA (RT-PCR) Negative (Negative) Blood Type Antibody Screen Crossmatch 02/10/24 02/10/24 Range/Units 00:45 01:35 WBC (4.5-10.0) K/mm3 RBC (4.2-5.4) M/mm3 Hgb (12.0-15.0) g/dL Hct (37.0-47.0) % MCV (80-100) fl MCH (26-34) pg MCHC (32-36) g/dl RDW (11.5-14.5) % Plt Count (150-375) k/mm3 MPV (7.4-10.4) fl Immature Gran % (Auto) (0-0.5) % Neut % (Auto) (45.5-73.1) % Lymph % (Auto) (18.3-44.2) % Winston % (Auto) (2.6-8.5) % Eos % (Auto) (0-4.4) % Baso % (Auto) (0.2-1.2) % Lymph # (Auto) (0.9-3.2) K/mm3 [place] # (Auto) (0.1-0.6) K/mm3 Eos # (Auto) (0-0.3) K/mm3 Baso # (Auto) (0.0-0.1) K/mm3 Abs Immat Gran (auto) (0.00-0.031) K/mm3 Absolute Neuts (auto) (1.3-6.7) K/mm3 Absolute Nucleated RBC (0.0-0.012) K/mm3 Nucleated RBC % (0.0-0.2) % PT (11.1-14.7) Seconds INR APTT (22.3-36.8) Seconds D-Dimer (<0.48) ug/mL Sodium (137-145) mmol/L Potassium (3.4-5.0) mmol/L Chloride (98-107) mmol/L Carbon Dioxide (22-30) mmol/L Anion Gap (4-12) mmol/L BUN (7-17) mg/dL Creatinine (0.7-1.0) mg/dL Estim Creat Clear Calc ml/min Estimated GFR (59 - ) Glucose (65-110) mg/dL POC Capillary Glucose 127 H (65-105) mg/dl Lactic Acid (0.7-2.0) mmol/L Calcium (8.4-10.2) mg/dL Magnesium (1.6-2.3) mg/dL Total Bilirubin (0.2-1.3) mg/dL AST (14-36) U/L ALT (6-35) U/L Alkaline Phosphatase (38-126) U/L Troponin I 0.013 (0.000-0.034) ng/mL NT-Pro-B Natriuret Pep (19.9-100) pg/mL Total Protein (6.3-8.2) g/dL Albumin (3.5-5.1) g/dL Lipase (23-300) U/L Urine Color (Yellow) Urine Appearance (Clear) Urine pH (5.0-9.0) Ur Specific [place] (1.001-1.035) Urine Protein (Negative) mg/dL Urine Glucose (UA) (Negative) mg/dL Urine Ketones (Negative) mg/dL Ur Blood (Man) (Negative) Urine Nitrate (Negative) Urine Bilirubin (Negative) Urine Urobilinogen (<2.0) mg/dL Leukocyte Esterase Rfl (Negative) JACE/UL Influenza A (RT-PCR) (Negative) Influenza B (RT-PCR) (Negative) RSV (RT-PCR) (Negative) SARS-CoV-2 RNA (RT-PCR) (Negative) Blood Type O Positive Antibody Screen Negative Crossmatch See Detail <Lucille Valenzuela MD - Last Filed: 02/10/24 02:42> Imaging Data Attestation: I personally reviewed and interpreted this imaging study as follows: <Mayra Rivera PA-C - Last Filed: 02/10/24 02:22> Radiologist's impression: ITS Impressions Head CT 02/09/24 23:17 IMPRESSION: 1. Normal aging brain. No acute intracranial process. 2. Bilateral otomastoiditis effusions. Chest/Abdomen CTA 02/09/24 23:21 IMPRESSION: 1. Normal caliber aorta with no aneurysm or dissection. No other acute intrathoracic or abdominal process. 2. Moderate emphysema with large bulla occupying a significant portion of the anterior left mid and upper hemithorax. 3. Unchanged small pericardial effusion. 4. Cirrhosis minimal ascites. 5. Cholelithiasis. Chest X-Ray 02/09/24 23:34 IMPRESSION: 1. Emphysema. <Mayra Rivera PA-C - Last Filed: 02/10/24 02:22> ECG Data EKG #1: Attestation: I personally reviewed and interpreted this ECG as follows: <Mayra Rivera PA-C - Last Filed: 02/10/24 02:22> ECG completion date: 02/09/24 <Mayra Rivera PA-C - Last Filed: 02/10/24 02:22> ECG completion time: 21:37 <ARNAUD Mauro Last Filed: 02/10/24 02:22> EKG Interpretation: normal rate (63), sinus rhythm and non-specific ST changes <Mayra Rivera PA-C - Last Filed: 02/10/24 02:22> Discharge Plan Discharge Clinical Impression: Acute GI bleeding, Atypical chest pain, Chronic anticoagulation, Hallucinations Hypotension Qualifiers: Hypotension type: unspecified hypotension type Qualified Code(s): I95.9 - Hypotension, unspecified <Mayra Rivera PA-C - Last Filed: 02/10/24 02:22> Patient Disposition: Still a Patient <Mayra Rivera PA-C - Last Filed: 02/10/24 02:22> Condition: Stable <Mayra Rivera PA-C - Last Filed: 02/10/24 02:22>
[2024-02-09 23:52] LABS: Add Urine Microscopic? NO; Appearance Urine Clear (Clear); Bilirubin Urine Negative (Negative); Blood Urine Negative (Negative); Color Urine Yellow (Yellow); Glucose Urine UA Negative (Negative); Ketones Urine Trace mg/dL (Negative); Leukocyte Esterase Ur Negative LEU/UL (Negative); Nitrate Urine Negative (Negative); Protein Urine Negative (Negative); Specific Grav Ur 1.031 (1.001-1.035); pH Urine 6.5 (5.0-9.0)
[2024-02-09] MEDS: LEVALBUTEROL NEB 1.25 MG/3 ML 2.5 MG INHALATION (23:52)
[2024-02-09] MEDS: IPRATROPIUM BR 0.02% INH SOLN 0.5 MG/2.5 ML VIAL 1.5 MG INHALATION (23:52)
[2024-02-09 23:58] VITALS: PULSE 64; RESP 13
[2024-02-10] VITALS (23 sets, daily range): BP systolic 94–151; BP diastolic 45–93; PULSE 56–80; RESP 12–22; TEMP 36–37; O2SAT 96–100; BMI 35.7
[2024-02-10] MEDS: SODIUM CHLORIDE 0.9% IV 1,000 ML 999 ML IV CONT (00:23)
[2024-02-10 01:12] LABS: Troponin I 0.013 ng/mL (0.000-0.034)
--- NOTE | 2024-02-10 01:22 | PM.IMHP ---
H&P: HPI History of Present Illness Date/Time: 02/10/24 01:22 Chief Complaint: ams Narrative: This is a 73-year-old female with past medical history significant for breast cancer status post double mastectomy, functional quadriplegia, COPD, atrial fibrillation, rate controlled anticoagulated. patient recently treated for urinary tract infection. She is a custodial resident. Patient was brought to the emergency room for evaluation due to altered mental status with hallucinations. Preliminary workup was significant for hemoglobin of 9.7 patient priors hemoglobin was 10.7 patient was negative for influenza type A influenza type B COVID and RSV a Hemoccult test was positive. In emergency room patient's blood pressures were labile given 1 unit of packed RBCs. Patient has been admitted for further evaluation management and treatment. EXAMINATION: CT brain wo con DATE: 02/09/2024 23:12 INDICATION: Hallucination TECHNIQUE: Computed tomography (CT) of the head was performed without intravenous contrast. Sagittal and coronal reconstructions were performed. The mA was adjusted according to patient size. Iterative reconstruction technique was employed. The dose-length product was 681.00 mGy-cm. COMPARISON: None FINDINGS: No acute intracranial hemorrhage, acute infarction or abnormal extra axial fluid collection. There is mild scattered white matter hypoattenuation consistent with chronic small vessel ischemic disease. Symmetric prominence of the sulci consistent with mild to moderate age-appropriate diffuse cerebral volume loss. Ventricles are normal and symmetric. No mass/mass effect. Changes of bilateral intraocular lens replacement. Mild mucosal thickening the bilateral ethmoid and maxillary sinuses. There are bilateral mastoid effusions. IMPRESSION: 1. Normal aging brain. No acute intracranial process. 2. Bilateral otomastoiditis effusions. EXAMINATION: CTA chest abdomen DATE: 02/09/2024 23:13 INDICATION: Chest and abdominal pain, shortness of breath and hypotension. TECHNIQUE: Computed tomographic angiography (CTA) of the chest and abdomen was performed without and with 100 mL Omnipaque-350 intravenous contrast. Volume-rendered 3D-reconstructions of the aorta and large arteries were constructed by the technologist on a separate workstation. Automated exposure control and iterative reconstruction technique were employed. The dose-length product was mGy-cm. COMPARISON: Chest CT dated 01/11/[address] abdomen and pelvis dated 10/28/2023 FINDINGS: Chest: Moderate emphysema but with very large bulla occupying a significant portion of the anterior right mid to upper hemithorax. Dependent atelectasis in bilateral lower lobes. Calcified right upper lobe nodules and calcified right hilar and mediastinal lymph nodes consistent with old granulomatous disease. No pneumonia, pulmonary edema, pleural effusion or pneumothorax. Heart size is normal. Small pericardial effusion. Atherosclerotic coronary artery calcification is. Small amount of aortic valve calcific lesion. Thoracic aorta is normal in caliber with no dissection. Left internal jugular central venous port catheter with distal tip at the cephalad superior vena cava. No pathologically enlarged thoracic lymphadenopathy. Chronic T2 and T12 compression fractures. Abdomen: Hepatic and splenic calcification consistent with old granulomatous disease. Nodular liver surface consistent with cirrhosis. Sagittal fat attenuation gallstones at the neck of the otherwise normal-appearing gallbladder with no wall thickening or pericholecystic comparison to suggest acute cholecystitis. Pancreas and left adrenal gland are normal. 4.7 x 2.6 cm right adrenal mass with slightly negative Hounsfield units on prior noncontrast chest CT consistent with an adenoma. Bilateral renal cysts the largest on the left measuring 3.4 cm. Visualized portions of bowels are unremarkable. Minimal ascites along the small bowel mesentery in the central abdomen and at the inferior right paracolic gutter.. Small amount of nonhemodynamically significant atherosclerotic plaque along the infrarenal abdominal aorta. No abdominal aortic aneurysm or dissection. No pathologically enlarged abdominal or upper pelvic lymphadenopathy. Chronic L1 burst fracture unchanged since 10/28/2023 IMPRESSION: 1. Normal caliber aorta with no aneurysm or dissection. No other acute intrathoracic or abdominal process. 2. Moderate emphysema with large bulla occupying a significant portion of the anterior left mid and upper hemithorax. 3. Unchanged small pericardial effusion. 4. Cirrhosis minimal ascites. 5. Cholelithiasis. EXAMINATION: XR chest 1V portable DATE: 02/09/2024 22:38 INDICATION: Chest pain TECHNIQUE: frontal view of the chest was obtained. COMPARISON: Chest radiograph dated 01/12/2024 FINDINGS: Left internal jugular central venous port catheter with distal tip at the cephalad superior vena cava. Emphysema with prominent lucency in the right mid to upper lung zone corresponding to a single large bulla on prior CT. Calcified nodules in the right midlung zone and calcified right hilar and mediastinal lymph nodes consistent with old granulomatous disease. No other airspace opacities, pulmonary edema, pleural effusion or pneumothorax. Heart size is within normal limits for AP technique. Old healed fracture at the left humeral neck. IMPRESSION: 1. Emphysema. [facility] Past Medical History Medical History COPD (chronic obstructive pulmonary disease) Diabetes Surgical History Surgical History No significant past surgical history Social History Social History Smoking status: Never smoker Second hand tobacco smoke exposure: No Alcohol intake: never Substance use: never Do You Feel Safe in your Home?: Yes Lack of Transportation: No Lack of Food: Never True Current Housing: I Have Housing Concerned About Future Housing: No Difficulty Paying Gas/Electric Bills: No Difficulty Paying for Meds: No Currently Unemployed: No Education: High School Diploma/GED Difficulty w/ Childcare or Family Care: No Spiritual care concerns: No Meds Home Medications and Allergies Home Medications Medication Instructions Recorded Confirmed Type acetaminophen 650 mg tablet 650 mg PO TID 10/28/23 02/10/24 History albuterol sulfate 90 mcg/actuation 2 puff inhalation Q4H PRN S.O.B 10/28/23 02/10/24 History aerosol inhaler aripiprazole 2 mg tablet 2 mg PO DAILY 10/28/23 02/10/24 History aripiprazole 5 mg tablet 5 mg PO DAILY 10/28/23 02/10/24 History buspirone 10 mg tablet 10 mg PO TID 10/28/23 02/10/24 History cholecalciferol (vitamin D3) 25 25 mcg PO DAILY 10/28/23 02/10/24 History mcg (1,000 unit) capsule (Vitamin D3) escitalopram oxalate 10 mg tablet 20 mg PO DAILY 10/28/23 02/10/24 History ferrous sulfate 325 mg (65 mg 325 mg PO DAILY 10/28/23 02/10/24 History iron) tablet furosemide 40 mg tablet 40 mg PO DAILY 10/28/23 02/10/24 History gabapentin 600 mg tablet 600 mg PO TID 10/28/23 02/10/24 History insulin aspart U-100 100 unit/mL See Rx Instructions .Route .COMPLEX 10/28/23 02/10/24 History (3 mL) subcutaneous pen lorazepam 0.5 mg tablet 0.5 mg PO QHS 10/28/23 02/10/24 History memantine 10 mg tablet 10 mg PO BID 10/28/23 02/10/24 History metformin 500 mg tablet 500 mg PO DAILY 10/28/23 02/10/24 History primidone 50 mg tablet 50 mg PO BID 10/28/23 02/10/24 History ropinirole 0.5 mg tablet 0.5 mg PO QHS 10/28/23 02/10/24 History tamoxifen 20 mg tablet 20 mg PO DAILY 10/28/23 02/10/24 History tramadol 50 mg tablet 50 mg PO QID 10/28/23 02/10/24 History trazodone 50 mg tablet 50 mg PO QHS 10/28/23 02/10/24 History aluminum-mag hydroxide-simethicone 5 ml PO Q6H PRN Heartburn 01/11/24 02/10/24 History 400 mg-400 mg-40 mg/5 mL oral susp (Maalox Maximum Strength) calcium carbonate 400 mg PO Q8H PRN Heartburn 01/11/24 02/10/24 History cyanocobalamin (vitamin B-12) 250 250 mcg PO DAILY 01/11/24 02/10/24 History mcg tablet guaifenesin 600 mg tablet,extended 600 mg PO BID 01/11/24 02/10/24 History release ipratropium 0.5 mg-albuterol 3 mg 3 ml inhalation Q6H PRN 01/11/24 02/10/24 History (2.5 mg base)/3 mL nebulization sob/wheezing soln magnesium hydroxide 2,400 mg/10 mL 30 ml PO DAILY PRN Constipation 01/11/24 02/10/24 History oral suspension (Milk Of Magnesia Concentrated) multivitamin with minerals 1 tablet PO DAILY 01/11/24 02/10/24 History (Multiple Vitamin-Minerals tablet) naloxone 4 mg/actuation nasal 1 spray intranasal Q2-3M PRN 01/11/24 02/10/24 History spray (Narcan) Opiate Reversal ondansetron 4 mg disintegrating 4 mg PO Q8H PRN Nausea And Vomiting 01/11/24 02/10/24 History tablet pantoprazole 40 mg tablet,delayed 40 mg PO QAM 01/11/24 02/10/24 History release polyethylene glycol 3350 17 17 g PO HS PRN Constipation 01/11/24 02/10/24 History gram/dose oral powder (Miralax) pyridoxine (vitamin B6) 25 mg 25 mg PO DAILY 01/11/24 02/10/24 History tablet sennosides 8.6 mg tablet (senna) 8.6 mg PO BID 01/11/24 02/10/24 History amiodarone 200 mg tablet (Pacerone) 200 mg PO BID #60 tabs 01/14/24 02/10/24 Rx apixaban 5 mg tablet (Eliquis) 5 mg PO Q12HR #60 tabs 01/14/24 02/10/24 Rx aspirin 81 mg chewable tablet 81 mg PO DAILY@0800 #30 tabs 01/14/24 02/10/24 Rx (Children's Aspirin) losartan 25 mg tablet 12.5 mg PO DAILY #30 tabs 01/14/24 02/10/24 Rx metoprolol tartrate 25 mg tablet 12.5 mg PO BID #30 tabs 01/14/24 02/10/24 Rx Allergies Allergy/AdvReac Type Severity Reaction Status Date / Time amoxicillin [From Augmentin] Allergy Unknown Verified 01/13/24 09:57 clavulanic acid Allergy Unknown Verified 01/13/24 09:57 [From Augmentin] Vital Signs Vital Signs - 24 hr 02/09/24 21:18 02/09/24 21:30 02/09/24 21:30 Temperature 98.2 F Pulse Rate 63 63 Respiratory Rate 15 Blood Pressure 94/54 L Pulse Oximetry 96 99 Oxygen Delivery Nasal Cannula Nasal Cannula Oxygen Flow Rate 3 3 02/09/24 23:15 02/09/24 23:58 02/10/24 00:32 Temperature Pulse Rate 65 64 65 Respiratory Rate 15 13 18 Blood Pressure 94/68 L 94/54 L Pulse Oximetry 99 99 Oxygen Delivery Oxygen Flow Rate 02/10/24 00:56 Temperature Pulse Rate 69 Respiratory Rate 14 Blood Pressure Pulse Oximetry Oxygen Delivery Oxygen Flow Rate Exam Narrative: lying in stretcher Const: General: comfortable, no acute distress, well developed, alert, awake, ill appearing chronically and obese Nutritional Appearance: obese Orientation/consciousness: oriented to person and oriented to place HENMT: Head: normal to inspection, normocephalic and atraumatic Ears: hearing grossly normal bilaterally Face/Nose/Sinus: normal facial exam Face and sinus: normal facial exam Eyes: General: appearance normal, both eyes and all related structures Pupils: Equal, round and reactive pupils present EOM: EOMs intact bilaterally Neck: Neck: full ROM, no lymphadenopathy and no JVD Thyroid: thyroid normal Lymphatic: no lymphadenopathy noted Chest: Other: double mastectomy Resp: Effort & Inspection: normal respiratory effort and able to speak in complete sentences Auscultation: clear to auscultation bilaterally Cardio: Jugular venous distension: no JVD Rate: regular rate Rhythm: regular rhythm Heart sounds: S1 normal heart sound present and S2 normal heart sound present GI: GI Palp: Yes Soft to palpation and Yes No hepatosplenomegaly present : General: Yes deferred Skin: Rashes: no rashes Wounds: no wounds Neuro: General: patient oriented x3 and CN's II-XI intact bilaterally Cranial nerves: Yes CN's II-XII intact bilaterally and Yes Equal, round and reactive pupils present Cognition (Neuro): normal cognition Speech: normal speech Gait exam (Neuro): Unable to assess gait Other: Functional quadriplegia Extrem: General: edema ( dependent edema) bilateral H&P: Results Labs Labs: Short CBC 02/09/24 Range/Units 21:46 WBC 9.4 (4.5-10.0) K/mm3 Hgb 9.7 L (12.0-15.0) g/dL Hct 32.6 L (37.0-47.0) % Plt Count 206 (150-375) k/mm3 BMP 02/09/24 21:46 Sodium 138 Potassium 4.1 Chloride 98 Carbon Dioxide 36 H BUN 21 H Creatinine 1.00 Glucose 146 H Calcium 8.1 L Cardiac Enzymes 02/09/24 02/10/24 Range/Units 21:46 00:45 Troponin I < 0.012 0.013 (0.000-0.034) ng/mL Liver Function 02/09/24 Range/Units 21:46 Total Bilirubin 0.2 (0.2-1.3) mg/dL AST 46 H (14-36) U/L ALT 32 (6-35) U/L Alkaline Phosphatase 74 (38-126) U/L Albumin 3.2 L (3.5-5.1) g/dL Urine 02/09/24 Range/Units 23:32 Urine Color Yellow (Yellow) Urine Appearance Clear (Clear) Urine pH 6.5 (5.0-9.0) Ur Specific [place] 1.031 (1.001-1.035) Urine Protein Negative (Negative) mg/dL Urine Glucose (UA) Negative (Negative) mg/dL Assessment and Plan Assessment and plan (1) Acute GI bleeding: Code(s): K92.2 - Gastrointestinal hemorrhage, unspecified Status: Acute Assessment and Plan: admit to IMU hold apixaban whole aspirin GI consult continue to monitor (2) Atrial fibrillation: Code(s): I48.91 - Unspecified atrial fibrillation Status: Acute Assessment and Plan: rate controlled holding anticoagulation (3) AMS (altered mental status): Code(s): R41.82 - Altered mental status, unspecified Status: Acute Assessment and Plan: CT of the head reviewed patient appears to be back to her usual (4) Abdominal pain: Qualifiers: Abdominal location: generalized Qualified Code(s): R10.84 - Generalized abdominal pain Code(s): R10.9 - Unspecified abdominal pain Status: Acute Assessment and Plan: CT abdomen and pelvis reviewed (5) Diabetes: Qualifiers: Diabetes mellitus complication status: without complication 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 insulin use: without denier control operator use Diabetes mellitus type: type 2 Qualified Code(s): E11.9 - Type 2 diabetes mellitus without complications Code(s): E11.9 - Type 2 diabetes mellitus without complications Status: Acute Assessment and Plan: will hold metformin insulin sliding scale as needed (6) Hypotension: Qualifiers: Hypotension type: unspecified hypotension type Qualified Code(s): I95.9 - Hypotension, unspecified Code(s): I95.9 - Hypotension, unspecified Status: Acute Assessment and Plan: receiving fluids and blood (7) Hallucinations: Code(s): R44.3 - Hallucinations, unspecified Status: Acute Assessment and Plan: patient is on multiple psychotropic holding aripiprazole holding trazodone holding Ativan holding tramadol restarted as needed Hospitalist MIPS Advance Care Plan I have confirmed that the patient's Advanced Care Plan is present, code status is documented, or surrogate decision maker is listed in patient medical record.: Yes Medication Reconciliation I have utilized all available resources to obtain, update and review the patients current medications (includes all prescriptions, OTC, herbals, cannabis, and nutritional supplements).: Yes
[2024-02-10 01:38] LABS: Glucose Point of Care 127 mg/dl (65-105)
[2024-02-10] MEDS: methylPREDNISolone SOD SUCC 125 MG VIAL IV PUSH (02:00)
[2024-02-10] MEDS: SODIUM CHLORIDE 0.9% IV 250 ML 30 ML IV CONT (02:13)
[2024-02-10] MEDS: TUBING, BLOOD PLUM PUMP TUBING 1 EACH XX (02:14)
[2024-02-10 05:31] LABS: Troponin I 0.018 ng/mL (0.000-0.034)
[2024-02-10 07:25] LABS: Hematocrit 35.8 % (37.0-47.0); Hemoglobin 10.6 g/dL (12.0-15.0); Mean Corpuscular HGB Conc 29.6 g/dl (32-36); Mean Corpuscular Volume 98.1 fl (80-100); Mean Platelet Volume 11.3 fl (7.4-10.4); Platelet Count Result 176 k/mm3 (150-375); Red Blood Count 3.65 M/mm3 (4.2-5.4); Red Cell Distribution Width 16.5 % (11.5-14.5); White Blood Count 5.7 K/mm3 (4.5-10.0)
[2024-02-10 08:14] LABS: Glucose Point of Care 230 mg/dl (65-105)
[2024-02-10] MEDS: GABAPENTIN 300 MG CAPSULE 600 MG PO ×3 (08:26→16:58)
[2024-02-10] MEDS: guaiFENesin 12 HR 600 MG TABCR PO (08:26)
[2024-02-10] MEDS: AMIODARONE HCL 200 MG TABLET PO (08:26)
[2024-02-10] MEDS: PRIMIDONE 50 MG TABLET PO (08:26)
[2024-02-10] MEDS: busPIRone HCL 10 MG TABLET PO ×3 (08:27→16:58)
[2024-02-10] MEDS: MEMANTINE 10 MG TABLET PO (08:27)
[2024-02-10] MEDS: FERROUS SULFATE 325 MG TABLET DR PO (08:27)
[2024-02-10] MEDS: ESCITALOPRAM OXALATE 10 MG TABLET 20 MG PO (08:27)
[2024-02-10] MEDS: PANTOPRAZOLE 40 MG TABLET PO (08:27)
[2024-02-10] MEDS: TAMOXIFEN CITRATE (*CHEMO) 10 MG TABLET 20 MG PO (08:29)
--- NOTE | 2024-02-10 08:31 | PM.IMPN ---
Progress Note: A&P Assessment and Plan (1) Acute GI bleeding: Code(s): K92.2 - Gastrointestinal hemorrhage, unspecified Status: Acute Assessment and Plan: admit to IMU hold apixaban whole aspirin GI consult continue to monitor (2) Atrial fibrillation: Code(s): I48.91 - Unspecified atrial fibrillation Status: Acute Assessment and Plan: rate controlled holding anticoagulation (3) AMS (altered mental status): Code(s): R41.82 - Altered mental status, unspecified Status: Acute Assessment and Plan: CT of the head reviewed patient appears to be back to her usual (4) Abdominal pain: Qualifiers: Abdominal location: generalized Qualified Code(s): R10.84 - Generalized abdominal pain Code(s): R10.9 - Unspecified abdominal pain Status: Acute Assessment and Plan: CT abdomen and pelvis reviewed (5) Diabetes: Qualifiers: Diabetes mellitus complication status: without complication Diabetes mellitus group home insulin use: 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 Diabetes mellitus type: type 2 Qualified Code(s): E11.9 - Type 2 diabetes mellitus without complications Code(s): E11.9 - Type 2 diabetes mellitus without complications Status: Acute Assessment and Plan: will hold metformin insulin sliding scale as needed (6) Hypotension: Qualifiers: Hypotension type: unspecified hypotension type Qualified Code(s): I95.9 - Hypotension, unspecified Code(s): I95.9 - Hypotension, unspecified Status: Acute Assessment and Plan: receiving fluids and blood (7) Hallucinations: Code(s): R44.3 - Hallucinations, unspecified Status: Acute Assessment and Plan: patient is on multiple psychotropic holding aripiprazole holding trazodone holding Ativan holding tramadol restarted as needed Subjective Date/time seen: 02/10/24 08:31 Interval history: Patient was evaluated at the bedside. Patient came from [facility]. Chart review indicates patient has episodes of hallucination in the residential. Patient is on 3 L oxygen baseline due to COPD. ED workup shows CTA, head CT, chest x-ray and urinalysis shows no significant findings. Patient had episodes of hypotension and hyperthermia. Patient started on IV fluids. Not able to identify the source of infection but hypotension believed to be due to the down trending of hemoglobin. Stool guaiac is positive and GI is consulted. In regards to hyperthermia blood cultures obtained. We will try to look for any source of infection dental, sacral or other possible source. In regards to cirrhosis she was already worked up in the past and is HBsAg and anti HCV negative. Her most likely cause of cirrhosis is her underlying type 2 diabetes and morbid obesity. Ordered ammonia, anemia panel and hepatitis panel. Exam Narrative: lying in stretcher Const: General: comfortable, no acute distress, well developed, alert, awake, ill appearing chronically, average body habitus and obese Nutritional Appearance: average body habitus and obese Orientation/consciousness: oriented to person, oriented to place and patient oriented x3 HENMT: Head: normal to inspection, normocephalic and atraumatic Ears: hearing grossly normal bilaterally Face/Nose/Sinus: normal facial exam Face and sinus: normal facial exam Eyes: General: appearance normal, both eyes and all related structures Pupils: Equal, round and reactive pupils present EOM: EOMs intact bilaterally Neck: Neck: full ROM, no lymphadenopathy and no JVD Thyroid: thyroid normal Lymphatic: no lymphadenopathy noted Chest: Other: double mastectomy Resp: Effort & Inspection: normal respiratory effort and able to speak in complete sentences Auscultation: clear to auscultation bilaterally Cardio: Jugular venous distension: no JVD Rate: regular rate Rhythm: regular rhythm Heart sounds: S1 normal heart sound present and S2 normal heart sound present : General: Yes deferred Skin: Rashes: no rashes Wounds: no wounds Neuro: General: oriented to person, oriented to place, patient oriented x3, CN's II-XI intact bilaterally and Unable to assess gait Cranial nerves: Yes CN's II-XII intact bilaterally and Yes Equal, round and reactive pupils present Cognition (Neuro): normal cognition Speech: normal speech Gait exam (Neuro): Normal gait present and Unable to assess gait Motor exam (neuro): 5/5 motor strength present throughout Other: Functional quadriplegia Extrem: General: normal to inspection, full ROM, no joint enlargement, no pedal edema and edema ( dependent edema) bilateral Objective Data Vital Signs Vital Signs: Vital Signs - 24 hr 02/09/24 21:18 02/09/24 21:30 02/09/24 21:30 Temperature 98.2 F Pulse Rate 63 63 Respiratory Rate 15 Blood Pressure 94/54 L Pulse Oximetry 96 99 Oxygen Delivery Nasal Cannula Nasal Cannula Oxygen Flow Rate 3 3 02/09/24 23:15 02/09/24 23:58 02/10/24 00:32 Temperature Pulse Rate 65 64 65 Respiratory Rate 15 13 18 Blood Pressure 94/68 L 94/54 L Pulse Oximetry 99 99 Oxygen Delivery Oxygen Flow Rate 02/10/24 00:56 02/10/24 02:10 02/10/24 02:28 Temperature 97.6 F 97.7 F Pulse Rate 69 72 75 Respiratory Rate 14 12 15 Blood Pressure 97/63 L 139/79 Pulse Oximetry 97 97 Oxygen Delivery Oxygen Flow Rate 02/10/24 02:50 02/10/24 03:28 02/10/24 04:00 Temperature 96.8 F L 97.9 F Pulse Rate 71 68 71 Respiratory Rate 18 15 Blood Pressure 138/92 H 114/87 Pulse Oximetry 100 100 Oxygen Delivery Oxygen Flow Rate 02/10/24 04:00 02/10/24 04:28 02/10/24 04:41 Temperature 98.6 F 98.6 F Pulse Rate 68 66 66 Respiratory Rate 15 15 18 Blood Pressure 94/45 L 95/56 L Pulse Oximetry 100 100 100 Oxygen Delivery Nasal Cannula Oxygen Flow Rate 3 02/10/24 05:28 02/10/24 05:47 02/10/24 08:00 Temperature 97.8 F 98 F Pulse Rate 68 79 80 Respiratory Rate 18 22 H Blood Pressure 97/58 L 139/79 Pulse Oximetry 97 96 Oxygen Delivery Oxygen Flow Rate 02/10/24 08:26 Temperature Pulse Rate 79 Respiratory Rate Blood Pressure Pulse Oximetry Oxygen Delivery Oxygen Flow Rate Intake/Output Intake/Output: Intake & Output 02/07/24 02/08/24 02/09/24 02/10/24 23:59 23:59 23:59 23:59 Intake Total 1000 1350 Balance 1000 1350 Meds/Results Medications: Active Medications Generic Name Dose Route Start Last Admin Trade Name Freq PRN Reason Stop Dose Admin Acetaminophen 650 mg 02/10/24 01:21 Acetaminophen 325 Mg Tablet PO Q4H PRN Mild Pain (1-3) or Fever Acetaminophen 650 mg 02/10/24 09:00 02/10/24 08:28 Acetaminophen 325 Mg Tablet PO 03/11/24 08:59 Not Given TID NICOLE Al Hydrox/Mg Hydrox/Simethicone 5 ml 02/10/24 03:33 Mag Hydrox/Al Hydrox/Simeth 30 Ml Udc PO Q6H PRN Heartburn Albuterol 2 puff 02/10/24 03:33 Albuterol Sulfate (*Sp) Aerosol 1 Puff INHALATION Q4H PRN S.O.B Albuterol/Ipratropium 3 ml 02/10/24 03:33 Ipratropium 0.5 Mg/Albuterol Sulfate 2.5 Mg Ampul.Neb 3 Ml INHALATION Q6HRT PRN sob/wheezing Amiodarone HCl 200 mg 02/10/24 09:00 02/10/24 08:26 Amiodarone Hcl 200 Mg Tablet PO 200 mg Q12HR NICOLE Administration Buspirone HCl 10 mg 02/10/24 09:00 02/10/24 08:27 Buspirone Hcl 10 Mg Tablet PO 10 mg TID NICOLE Administration Calcium Carbonate 400 mg 02/10/24 03:33 Calcium Carbonate (Tums) 500 Mg (200 Mg Elemental) PO Q8H PRN Heartburn Escitalopram Oxalate 20 mg 02/10/24 09:00 02/10/24 08:27 Escitalopram Oxalate 10 Mg Tablet PO 20 mg DAILY NICOLE Administration Ferrous Sulfate 325 mg 02/10/24 09:00 02/10/24 08:27 Ferrous Sulfate [address] PO 03/11/24 08:59 325 mg DAILY NICOLE Administration Gabapentin 600 mg 02/10/24 09:00 02/10/24 08:26 Gabapentin 300 Mg Capsule PO 600 mg TID NICOLE Administration Guaifenesin 600 mg 02/10/24 09:00 02/10/24 08:26 Guaifenesin 12 Hr 600 Mg Tabcr PO 600 mg Q12HR NICOLE Administration Sodium Chloride 250 mls @ 30 mls/hr 02/10/24 00:39 02/10/24 02:13 Normal Saline Iv IV CONT 02/10/24 08:58 30 mls/hr .Q8H20M STA Administration Insulin Aspart 5 units 02/10/24 08:00 Insulin Aspart (*Bkc) 100 Units/Ml 0.05 units/kg (5 units) SUB-Q TIDWM NICOLE Magnesium Hydroxide 30 ml 02/10/24 03:33 Magnesium Hydroxide Susp 30 Ml Udc PO DAILY PRN Constipation Memantine 10 mg 02/10/24 09:00 02/10/24 08:27 Memantine 10 Mg Tablet PO 10 mg Q12HR NICOLE Administration Non-Formulary Medication 1 spray 02/10/24 03:33 Naloxone [Narcan] EACH NARE 03/11/24 03:32 PRN PRN Opiate Reversal Ondansetron HCl 4 mg 02/10/24 01:21 Ondansetron Inj 4 Mg/2 Ml Vial IV PUSH Q4H PRN Nausea Pantoprazole Sodium 40 mg 02/10/24 09:00 02/10/24 08:27 Pantoprazole 40 Mg Tablet PO 40 mg QAM NICOLE Administration Primidone 50 mg 02/10/24 09:00 02/10/24 08:26 Primidone 50 Mg Tablet PO 50 mg Q12HR NICOLE Administration Ropinirole HCl 0.5 mg 02/10/24 21:00 Ropinirole Hcl 0.5 Mg Tablet PO QHS NICOLE Tamoxifen Citrate 20 mg 02/10/24 09:00 02/10/24 08:29 Tamoxifen Citrate (*Chemo) 10 Mg Tablet PO 03/11/24 08:59 20 mg DAILY NICOLE Administration Radiology Results: ITS Impressions Head CT 02/09/24 23:17 IMPRESSION: 1. Normal aging brain. No acute intracranial process. 2. Bilateral otomastoiditis effusions. Chest/Abdomen CTA 02/09/24 23:21 IMPRESSION: 1. Normal caliber aorta with no aneurysm or dissection. No other acute intrathoracic or abdominal process. 2. Moderate emphysema with large bulla occupying a significant portion of the anterior left mid and upper hemithorax. 3. Unchanged small pericardial effusion. 4. Cirrhosis minimal ascites. 5. Cholelithiasis. Chest X-Ray 02/09/24 23:34 IMPRESSION: 1. Emphysema. Labs Labs: Laboratory Results - last 24 hr 02/09/24 02/09/24 02/09/24 21:46 22:26 23:32 WBC 9.4 RBC 3.32 L Hgb 9.7 L Hct 32.6 L MCV 98.2 MCH 29.2 MCHC 29.8 L RDW 14.5 Plt Count 206 MPV 10.2 Immature Gran % (Auto) 0.4 Neut % (Auto) 72.2 Lymph % (Auto) 19.1 [place] % (Auto) 7.9 Eos % (Auto) 0.2 Baso % (Auto) 0.2 Lymph # (Auto) 1.79 [place] # (Auto) 0.7 H Eos # (Auto) 0.0 Baso # (Auto) 0.0 Abs Immat Gran (auto) 0.04 H Absolute Neuts (auto) 6.8 H Absolute Nucleated RBC 0.000 Nucleated RBC % 0.0 PT 18.8 H INR 1.5 APTT 30.3 D-Dimer < 0.27 Sodium 138 Potassium 4.1 Chloride 98 Carbon Dioxide 36 H Anion Gap 4 BUN 21 H Creatinine 1.00 Estim Creat Clear Calc 60 Estimated GFR 54 L Glucose 146 H POC Capillary Glucose Lactic Acid 1.7 Calcium 8.1 L Magnesium 2.1 Total Bilirubin 0.2 AST 46 H ALT 32 Alkaline Phosphatase 74 Troponin I < 0.012 NT-Pro-B Natriuret Pep 669 H Total Protein 6.0 L Albumin 3.2 L Lipase 89 Urine Color Yellow Urine Appearance Clear Urine pH 6.5 Ur Specific Rufe 1.031 Urine Protein Negative Urine Glucose (UA) Negative Urine Ketones Trace H Ur Blood (Man) Negative Urine Nitrate Negative Urine Bilirubin Negative Urine Urobilinogen 1.0 Leukocyte Esterase Rfl Negative Influenza A (RT-PCR) Negative Influenza B (RT-PCR) Negative RSV (RT-PCR) Negative SARS-CoV-2 RNA (RT-PCR) Negative Blood Type Antibody Screen Crossmatch 02/10/24 02/10/24 02/10/24 00:45 01:35 04:42 WBC RBC Hgb Hct MCV MCH MCHC RDW Plt Count MPV Immature Gran % (Auto) Neut % (Auto) Lymph % (Auto) [place] % (Auto) Eos % (Auto) Baso % (Auto) Lymph # (Auto) [place] # (Auto) Eos # (Auto) Baso # (Auto) Abs Immat Gran (auto) Absolute Neuts (auto) Absolute Nucleated RBC Nucleated RBC % PT INR APTT D-Dimer Sodium Potassium Chloride Carbon Dioxide Anion Gap BUN Creatinine Estim Creat Clear Calc Estimated GFR Glucose POC Capillary Glucose 127 H Lactic Acid Calcium Magnesium Total Bilirubin AST ALT Alkaline Phosphatase Troponin I 0.013 0.018 D NT-Pro-B Natriuret Pep Total Protein Albumin Lipase Urine Color Urine Appearance Urine pH Ur Specific Rufe Urine Protein Urine Glucose (UA) Urine Ketones Ur Blood (Man) Urine Nitrate Urine Bilirubin Urine Urobilinogen Leukocyte Esterase Rfl Influenza A (RT-PCR) Influenza B (RT-PCR) RSV (RT-PCR) SARS-CoV-2 RNA (RT-PCR) Blood Type O Positive Antibody Screen Negative Crossmatch See Detail 02/10/24 02/10/24 07:19 08:11 WBC 5.7 RBC 3.65 L Hgb 10.6 L Hct 35.8 L MCV 98.1 MCH 29.0 MCHC 29.6 L RDW 16.5 H Plt Count 176 MPV 11.3 H Immature Gran % (Auto) Neut % (Auto) Lymph % (Auto) [place] % (Auto) Eos % (Auto) Baso % (Auto) Lymph # (Auto) [place] # (Auto) Eos # (Auto) Baso # (Auto) Abs Immat Gran (auto) Absolute Neuts (auto) Absolute Nucleated RBC Nucleated RBC % PT INR APTT D-Dimer Sodium Potassium Chloride Carbon Dioxide Anion Gap BUN Creatinine Estim Creat Clear Calc Estimated GFR Glucose POC Capillary Glucose 230 H Lactic Acid Calcium Magnesium Total Bilirubin AST ALT Alkaline Phosphatase Troponin I NT-Pro-B Natriuret Pep Total Protein Albumin Lipase Urine Color Urine Appearance Urine pH Ur Specific Rufe Urine Protein Urine Glucose (UA) Urine Ketones Ur Blood (Man) Urine Nitrate Urine Bilirubin Urine Urobilinogen Leukocyte Esterase Rfl Influenza A (RT-PCR) Influenza B (RT-PCR) RSV (RT-PCR) SARS-CoV-2 RNA (RT-PCR) Blood Type Antibody Screen Crossmatch Hospitalist MIPS Advance Care Plan I have confirmed that the patient's Advanced Care Plan is present, code status is documented, or surrogate decision maker is listed in patient medical record.: Yes Medication Reconciliation I have utilized all available resources to obtain, update and review the patients current medications (includes all prescriptions, OTC, herbals, cannabis, and nutritional supplements).: Yes
[2024-02-10] MEDS: INSULIN ASPART (*BKC) 100 UNITS/ML SUB-Q ×3 (08:34→16:58)
[2024-02-10 09:12] LABS: Alanine Aminotransferase 31 U/L (6-35); Albumin Level 3.6 g/dL (3.5-5.1); Alkaline Phosphatase 60 U/L (38-126); Anion Gap 6 mmol/L (4-12); Aspartate Amino Transferase 44 U/L (14-36); Bilirubin,Total 0.5 mg/dL (0.2-1.3); Blood Urea Nitrogen 17 mg/dL (7-17); Calcium 7.9 mg/dL (8.4-10.2); Carbon Dioxide 31 mmol/L (22-30); Chloride 103 mmol/L (98-107); Estimated CRCL calculation 102 ml/min; Estimated Glomerular Filt Rate > 60; Glucose 228 mg/dL (65-110); Potassium 4.6 mmol/L (3.4-5.0); Sodium 140 mmol/L (137-145)
[2024-02-10 10:03] LABS: Iron 30 ug/dL (37-170)
--- NOTE | 2024-02-10 10:10 | PC.NURSE ---
Confirmed with Chidi to cancel echo due to one being done last month. Ok with provider to cancel order.
[2024-02-10 10:12] LABS: Percent Iron Saturation 8 % (20-50)
[2024-02-10 11:12] LABS: Folic Acid 10.2 ng/mL (2.76->20)
[2024-02-10 11:12] LABS: Hepatitis B Surface Antigen Negative (Negative)
[2024-02-10 11:18] LABS: HAV RESULT Negative (Negative); Hepatitis B Core IgM Result Negative (Negative)
[2024-02-10 11:29] LABS: Hepatitis C Virus Antibody Negative (Negative)
--- NOTE | 2024-02-10 12:05 | P.CONGI_ITS ---
I have reviewed our nurse practitioner's note, examined the patient and pertinent laboratory data. We have discussed the plan extensively and agreed with was stated in the note. This is a 73-year-old patient with a history of morbid obesity and type 2 diabetes, who had a severe GI bleeding in the past requiring transfusions. She is brought today because of extreme fatigue and was found to have moderate to severe anemia. He was also found to be heme-positive, but did not have any overt GI bleeding, at least recently. In addition, she is known to have cirrhosis by imaging studies showing a nodule liver, and is admission she has evidence of small amount of ascites. We do not have a record showing any endoscopic studies. In the ER she was found to be hypotensive and was noted to have a hemoglobin of 9.7, hematocrit 32.6 and MCV of 98.2. Due to her being hypotensive the transfer is her 1 unit of packed red blood cells and hemoglobin is up to 10.6. She did have a heme-positive stool in the ER but stool was brown. Per nursing staff she has had no evidence of GI bleeding. She has not had a bowel movement since she has been here. Given her transient hemodynamic compromise and the severity of anemia, requiring transfusion, we will study her with colonoscopy and EGD tomorrow. Order for colonoscopy prep placed. Regarding her underlying liver disease, she was already worked up in the past and is HBsAg and anti HCV negative. Her most likely cause of cirrhosis is her underlying type 2 diabetes and morbid obesity. Since her ascites is not significant as moment, will just observe and recommend low-sodium diet at discharge and I will follow her up as an outpatient after GI bleeding is clarified. Assessment and Plan Assessment and plan (1) Acute GI bleeding: Code(s): K92.2 - Gastrointestinal hemorrhage, unspecified Status: Acute (2) Atrial fibrillation: Code(s): I48.91 - Unspecified atrial fibrillation Status: Acute (3) AMS (altered mental status): Code(s): R41.82 - Altered mental status, unspecified Status: Acute (4) Abdominal pain: Qualifiers: Abdominal location: generalized Qualified Code(s): R10.84 - Generalized abdominal pain Code(s): R10.9 - Unspecified abdominal pain Status: Acute (5) Hypotension: Qualifiers: Hypotension type: unspecified hypotension type Qualified Code(s): I95.9 - Hypotension, unspecified Code(s): I95.9 - Hypotension, unspecified Status: Acute Assessment and Plan: receiving fluids and blood (6) Cirrhosis: Code(s): K74.60 - Unspecified cirrhosis of liver Status: Acute (7) Heme positive stool: Code(s): R19.5 - Other fecal abnormalities Status: Acute (8) Normocytic anemia: Code(s): D64.9 - Anemia, unspecified Status: Acute Plan 1. Acute Normocytic Anemia/+ Occult Stool/ History of GI bleed? : Last EGD never. Last colonoscopy never. Her son reports GI bleed requiring blood transfusion 7 units 2 years ago per son. Attempted to reach son to gather more information and unsuccessful. Has been on Eliquis, which is currently on hold. Hgb 9.7 on admission and hypotensive with AMH, transfused 1 unit PRBC, hgb has improved to 10.7. Had normal Hgb 12/2023. Denies current melena or hematochezia. Hemoccult positive in ER. Concern for upper vs lower GI bleed. No visible signs of bleeding at this time. - Recommend EGD and colonoscopy, she would certainly be higher risk. - Keep NPO pending seen by Dr. Burkett. - PPI BID - Will check ferritin, iron panel, b12 and folate - Monitor H&H and transfuse if needed - Continue to hold Eliquis at this time - Further recs pending above 2. Cirrhosis/Ascites: New finding on imaging 10/2023. Has type 2 DM and obesity. Could be related to HUERTA. Recent CT with cirrhosis with mild ascites. Platelets are normal. - Will check ammonia level due to AMS on admission -Check hepatitis serology and AFP for HCC screening -Consider US with dopplers and paracentesis to check for infection. -Tomorrow consider additional liver work up labs to consider other chronic liver diseases. GI Consult Note Consult date/time: 02/10/24 0930 Reason for consult: GI bleed HPI: This is a pleasant 73 yo female with a past medical surgical history of cirrhosis, breast cancer status post double mastectomy, type 2 diabetes, COPD on 3 L of O2 nasal cannula, atrial fibrillation on Eliquis. [facility] [place] [facility] [place]. Her son makes her medical decisions. She presented to the ER room 02/09/2024 with concerns for altered mental status with hallucinations. Patient reports upper abdominal pain started about a month ago. Denies pain radiating to back or chest. Reports nausea worse with eating. Denies vomiting. Reports constipation. Denies alcohol use. Denies history of ulcers or NSAID use. Denies family history of GI cancers or chronic liver disease. She does mention something about GI bleed 1-2 months ago and had blood transfusion there but denies having scopes completed. She was told she had cirrhosis when she was here at last admission in October (this account of this). Nurse called and told me that her son Terry would like everything done if possible. He also mentioned that 2 years ago she had a GI bleed and received 7 units of blood and ?nearly killed her?. I did attempt to call him to get more specifics after this discussion but got a voicemail, this call was completed at 12:15 p.m. on 02/10/2024. In the ER she was found to be hypotensive and was noted to have a hemoglobin of 9.7, hematocrit 32.6 and MCV of 98.2. Due to her being hypotensive the transfer is her 1 unit of packed red blood cells and hemoglobin is up to 10.6. She did have a heme-positive stool in the ER but stool was brown. Per nursing staff she has had no evidence of GI bleeding. She has not had a bowel movement since she has been here. Two note she kept falling asleep on exam but easily arousable. She was able to eventually provide me with a history but not entirely sure how accurate. ENDOSCOPY HISTORY: EGD: No prior EGD COLONOSCOPY: No prior colonoscopy No prior Cologuard LABS AND STOOL STUDIES: 02/09/2024 WBC 9.4 HGB 9.7, HCT 32.6, MCV 98.2, platelets 206 02/10/2024 WBC 5.7, HGB 10.6, HCT 35.8, MCV 98.1, platelets 176, Na 140, K 4.6, BUN 17, creatinine 0.50, total bilirubin 0.5, AST 44, ALT 31, alkaline phosphatase 60 Hemoccult positive IMAGIN02/09/2024 23:13 CTA chest abdomen: 1. Normal caliber aorta with no aneurysm or dissection. No other acute intrathoracic or abdominal process. 2. Moderate emphysema with large bulla occupying a significant portion of the anterior left mid and upper hemithorax. 3. Unchanged small pericardial effusion. 4. Cirrhosis minimal ascites. 5. Cholelithiasis. 10/28/2023 CT a/p without contrast: IMPRESSION: 1. Cirrhosis of the liver. 2. Small pericardial effusion. 3. Cholelithiasis. [facility] Past Medical History Medical History COPD (chronic obstructive pulmonary disease) Diabetes Surgical History Surgical History No significant past surgical history Social History Social History Smoking packs per day: 1 Smoking cigarettes per day: 20.0 Years smoked: 50 Smoking pack-years: 50.00 Smoking status: Former smoker Second hand tobacco smoke exposure: No Alcohol intake: former Substance use: never Do You Feel Safe in your Home?: Yes Lack of Transportation: No Lack of Food: Never True Current Housing: I Have Housing Concerned About Future Housing: No Difficulty Paying Gas/Electric Bills: No Difficulty Paying for Meds: No Currently Unemployed: No Education: High School Diploma/GED Difficulty w/ Childcare or Family Care: No Spiritual care concerns: No Meds Home Medications and Allergies Home Medications Medication Instructions Recorded Confirmed Type acetaminophen 650 mg tablet 650 mg PO TID 10/28/23 02/10/24 History albuterol sulfate 90 mcg/actuation 2 puff inhalation Q4H PRN S.O.B 10/28/23 02/10/24 History aerosol inhaler aripiprazole 2 mg tablet 2 mg PO DAILY 10/28/23 02/10/24 History aripiprazole 5 mg tablet 5 mg PO DAILY 10/28/23 02/10/24 History buspirone 10 mg tablet 10 mg PO TID 10/28/23 02/10/24 History cholecalciferol (vitamin D3) 25 25 mcg PO DAILY 10/28/23 02/10/24 History mcg (1,000 unit) capsule (Vitamin D3) escitalopram oxalate 10 mg tablet 20 mg PO DAILY 10/28/23 02/10/24 History ferrous sulfate 325 mg (65 mg 325 mg PO DAILY 10/28/23 02/10/24 History iron) tablet furosemide 40 mg tablet 40 mg PO DAILY 10/28/23 02/10/24 History gabapentin 600 mg tablet 600 mg PO TID 10/28/23 02/10/24 History insulin aspart U-100 100 unit/mL See Rx Instructions .Route .COMPLEX 10/28/23 02/10/24 History (3 mL) subcutaneous pen lorazepam 0.5 mg tablet 0.5 mg PO QHS 10/28/23 02/10/24 History memantine 10 mg tablet 10 mg PO BID 10/28/23 02/10/24 History metformin 500 mg tablet 500 mg PO DAILY 10/28/23 02/10/24 History primidone 50 mg tablet 50 mg PO BID 10/28/23 02/10/24 History ropinirole 0.5 mg tablet 0.5 mg PO QHS 10/28/23 02/10/24 History tamoxifen 20 mg tablet 20 mg PO DAILY 10/28/23 02/10/24 History tramadol 50 mg tablet 50 mg PO QID 10/28/23 02/10/24 History trazodone 50 mg tablet 50 mg PO QHS 10/28/23 02/10/24 History aluminum-mag hydroxide-simethicone 5 ml PO Q6H PRN Heartburn 01/11/24 02/10/24 History 400 mg-400 mg-40 mg/5 mL oral susp (Maalox Maximum Strength) calcium carbonate 400 mg PO Q8H PRN Heartburn 01/11/24 02/10/24 History cyanocobalamin (vitamin B-12) 250 250 mcg PO DAILY 01/11/24 02/10/24 History mcg tablet guaifenesin 600 mg tablet,extended 600 mg PO BID 01/11/24 02/10/24 History release ipratropium 0.5 mg-albuterol 3 mg 3 ml inhalation Q6H PRN 01/11/24 02/10/24 H istory (2.5 mg base)/3 mL nebulization sob/wheezing soln magnesium hydroxide 2,400 mg/10 mL 30 ml PO DAILY PRN Constipation 01/11/24 02/10/24 History oral suspension (Milk Of Magnesia Concentrated) multivitamin with minerals 1 tablet PO DAILY 01/11/24 02/10/24 History (Multiple Vitamin-Minerals tablet) naloxone 4 mg/actuation nasal 1 spray intranasal Q2-3M PRN 01/11/24 02/10/24 History spray (Narcan) Opiate Reversal ondansetron 4 mg disintegrating 4 mg PO Q8H PRN Nausea And Vomiting 01/11/24 02/10/24 History tablet pantoprazole 40 mg tablet,delayed 40 mg PO QAM 01/11/24 02/10/24 History release polyethylene glycol 3350 17 17 g PO HS PRN Constipation 01/11/24 02/10/24 History gram/dose oral powder (Miralax) pyridoxine (vitamin B6) 25 mg 25 mg PO DAILY 01/11/24 02/10/24 History tablet sennosides 8.6 mg tablet (senna) 8.6 mg PO BID 01/11/24 02/10/24 History amiodarone 200 mg tablet (Pacerone) 200 mg PO BID #60 tabs 01/14/24 02/10/24 Rx apixaban 5 mg tablet (Eliquis) 5 mg PO Q12HR #60 tabs 01/14/24 02/10/24 Rx aspirin 81 mg chewable tablet 81 mg PO DAILY@0800 #30 tabs 01/14/24 02/10/24 Rx (Children's Aspirin) losartan 25 mg tablet 12.5 mg PO DAILY #30 tabs 01/14/24 02/10/24 Rx metoprolol tartrate 25 mg tablet 12.5 mg PO BID #30 tabs 01/14/24 02/10/24 Rx Allergies Allergy/AdvReac Type Severity Reaction Status Date / Time amoxicillin [From Augmentin] Allergy Unknown Verified 01/13/24 09:57 clavulanic acid Allergy Unknown Verified 01/13/24 09:57 [From Augmentin] Vital Signs Vital Signs - 24 hr 02/09/24 21:18 02/09/24 21:30 02/09/24 21:30 Temperature 98.2 F Pulse Rate 63 63 Respiratory Rate 15 Blood Pressure 94/54 L Pulse Oximetry 96 99 Oxygen Delivery Nasal Cannula Nasal Cannula Oxygen Flow Rate 3 3 02/09/24 23:15 02/09/24 23:58 02/10/24 00:32 Temperature Pulse Rate 65 64 65 Respiratory Rate 15 13 18 Blood Pressure 94/68 L 94/54 L Pulse Oximetry 99 99 Oxygen Delivery Oxygen Flow Rate 02/10/24 00:56 02/10/24 02:10 02/10/24 02:28 Temperature 97.6 F 97.7 F Pulse Rate 69 72 75 Respiratory Rate 14 12 15 Blood Pressure 97/63 L 139/79 Pulse Oximetry 97 97 Oxygen Delivery Oxygen Flow Rate 02/10/24 02:50 02/10/24 03:28 02/10/24 04:00 Temperature 96.8 F L 97.9 F Pulse Rate 71 68 71 Respiratory Rate 18 15 Blood Pressure 138/92 H 114/87 Pulse Oximetry 100 100 Oxygen Delivery Oxygen Flow Rate 02/10/24 04:00 02/10/24 04:28 02/10/24 04:41 Temperature 98.6 F 98.6 F Pulse Rate 68 66 66 Respiratory Rate 15 15 18 Blood Pressure 94/45 L 95/56 L Pulse Oximetry 100 100 100 Oxygen Delivery Nasal Cannula Oxygen Flow Rate 3 02/10/24 05:28 02/10/24 05:47 02/10/24 08:00 Temperature 97.8 F 98 F Pulse Rate 68 79 80 Respiratory Rate 18 22 H Blood Pressure 97/58 L 139/79 Pulse Oximetry 97 96 Oxygen Delivery Oxygen Flow Rate 02/10/24 08:26 02/10/24 08:33 02/10/24 08:00 Temperature Pulse Rate 79 71 Respiratory Rate Blood Pressure Pulse Oximetry 96 Oxygen Delivery Nasal Cannula Oxygen Flow Rate 3 02/10/24 08:00 02/10/24 10:00 Temperature Pulse Rate 65 Respiratory Rate Blood Pressure Pulse Oximetry 98 Oxygen Delivery Nasal Cannula Oxygen Flow Rate 3 Exam Const: General: comfortable and no acute distress Other: obese and pale falling asleep during consult but easily arousable and talkative. Eyes: Sclera: sclerae normal Cardio: Rate: regular rate Rhythm: regular rhythm GI: Auscultation: normal bowel sounds Other: obese, non tender Skin: Other: pale Results Labs 02/10/24 07:19 02/10/24 08:39 Labs: Short CBC 02/09/24 02/10/24 Range/Units 21:46 07:19 WBC 9.4 5.7 (4.5-10.0) K/mm3 Hgb 9.7 L 10.6 L (12.0-15.0) g/dL Hct 32.6 L 35.8 L (37.0-47.0) % Plt Count 206 176 (150-375) k/mm3 BMP 02/09/24 02/10/24 21:46 08:39 Sodium 138 140 Potassium 4.1 4.6 Chloride 98 103 Carbon Dioxide 36 H 31 H BUN 21 H 17 Creatinine 1.00 0.50 L Glucose 146 H 228 H Calcium 8.1 L 7.9 L Cardiac Enzymes 02/09/24 02/10/24 02/10/24 Range/Units 21:46 00:45 04:42 Troponin I < 0.012 0.013 0.018 D (0.000-0.034) ng/mL Liver Function 02/09/24 02/10/24 Range/Units 21:46 08:39 Total Bilirubin 0.2 0.5 (0.2-1.3) mg/dL AST 46 H 44 H (14-36) U/L ALT 32 31 (6-35) U/L Alkaline Phosphatase 74 60 (38-126) U/L Albumin 3.2 L 3.6 (3.5-5.1) g/dL Urine 02/09/24 Range/Units 23:32 Urine Color Yellow (Yellow) Urine Appearance Clear (Clear) Urine pH 6.5 (5.0-9.0) Ur Specific [place] 1.031 (1.001-1.035) Urine Protein Negative (Negative) mg/dL Urine Glucose (UA) Negative (Negative) mg/dL
[2024-02-10 12:07] LABS: Ammonia < 9 umol/L (9-30)
[2024-02-10 12:09] LABS: Glucose Point of Care 212 mg/dl (65-105)
[2024-02-10] MEDS: ACETAMINOPHEN 325 MG TABLET 650 MG PO (12:30)
[2024-02-10 16:27] LABS: Glucose Point of Care 173 mg/dl (65-105)
[2024-02-10 16:42] LABS: Immature Reticulocyte Fraction 29.9 % (3.0-15.9); Reticulocyte Hemoglobin Conten 26.4 pg (28.2-36.6); Reticulocytes Absolute 0.15 10^6/uL (0.02-0.10)
[2024-02-10 16:48] LABS: Lactate Dehydrogenase 136 U/L (120-246)
[2024-02-10 16:48] LABS: Ammonia < 9 umol/L (9-30)
[2024-02-10] MEDS: BISACODYL 5 MG TABLET EC 20 MG PO (17:11)
[2024-02-10 19:27] LABS: Iron 53 ug/dL (37-170)
[2024-02-10 19:37] LABS: Percent Iron Saturation 15 % (20-50)
--- NOTE | 2024-02-10 20:35 | PC.NURSE ---
2030: Upon assessment patient is extrtemly lethargic. Patient is not able to stay awake long enough to speak a complete assessment. Patient is alert and oriented. Patient has a history of COPD wears 3L of home oxygen. MD Swain contacted. ABG ordered. Order to hold off on PO medication until administration patient is alert enough to ingest safely.
[2024-02-10] MEDS: PANTOPRAZOLE SODIUM IV 40 MG VIAL IV PUSH (20:50)
[2024-02-10 20:56] LABS: Alveolar/Arterial O2 Gradient 71.7 mmHg; Base Excess ABG 5.9 mEq/l (+/-2.0); Fractional Inspired Oxygen 32 %; HCO3 ABG 30.9 mEq/l (22.0-26.0); Oxygen Content ABG 14.4 %vol (16.0-22.0); Oxygen Saturation ABG 97.8 % (95.0-100.0); Oxyhemoglobin 96.6 % THb (90.0-100.0); PCO2 ABG 46.7 mmHg (35.0-45.0); PO2 ABG 101.8 mmHg (80.0-100.0); PO2 FiO2 Ratio Arterial Blood 3.18 %; Total Hemoglobin 10.5 g/dL (12.0-18.0); pH ABG 7.438 (7.350-7.450)
[2024-02-10 20:57] LABS: Device NASAL CANNULA; Modified Allen's Test Pass; Site Drawn LEFT RADIAL
--- NOTE | 2024-02-10 21:17 | PC.NURSE ---
Dr. Daly notified of patient's increased lethargy and being unable to administer bowel prep. Received okay to hold bowel prep until patient is more alert and able to drink.
[2024-02-11] VITALS (17 sets, daily range): BP systolic 100–125; BP diastolic 58–91; PULSE 61–82; RESP 16–24; TEMP 36.3–37.1; O2SAT 97–100
[2024-02-11 05:00] LABS: Hematocrit 34.2 % (37.0-47.0); Hemoglobin 10.5 g/dL (12.0-15.0); Mean Corpuscular HGB Conc 30.7 g/dl (32-36); Mean Corpuscular Hemoglobin 29.6 pg (26-34); Mean Corpuscular Volume 96.3 fl (80-100); Mean Platelet Volume 10.9 fl (7.4-10.4); Platelet Count Result 208 k/mm3 (150-375); Red Blood Count 3.55 M/mm3 (4.2-5.4); Red Cell Distribution Width 15.7 % (11.5-14.5); White Blood Count 8.1 K/mm3 (4.5-10.0)
--- NOTE | 2024-02-11 07:37 | PM.IMPN ---
Progress Note: A&P Assessment and Plan (1) Acute GI bleeding: Code(s): K92.2 - Gastrointestinal hemorrhage, unspecified Status: Acute Assessment and Plan: admit to IMU hold apixaban whole aspirin GI consult continue to monitor (2) Atrial fibrillation: Code(s): I48.91 - Unspecified atrial fibrillation Status: Acute Assessment and Plan: rate controlled holding anticoagulation (3) AMS (altered mental status): Code(s): R41.82 - Altered mental status, unspecified Status: Acute Assessment and Plan: CT of the head reviewed patient appears to be back to her usual (4) Abdominal pain: Qualifiers: Abdominal location: generalized Qualified Code(s): R10.84 - Generalized abdominal pain Code(s): R10.9 - Unspecified abdominal pain Status: Acute Assessment and Plan: CT abdomen and pelvis reviewed (5) Diabetes: Qualifiers: Diabetes mellitus complication status: without complication Diabetes mellitus jail insulin use: without ferry terminal agent use Diabetes mellitus type: type 2 Qualified Code(s): E11.9 - Type 2 diabetes mellitus without complications Code(s): E11.9 - Type 2 diabetes mellitus without complications Status: Acute Assessment and Plan: will hold metformin insulin sliding scale as needed (6) Hypotension: Qualifiers: Hypotension type: unspecified hypotension type Qualified Code(s): I95.9 - Hypotension, unspecified Code(s): I95.9 - Hypotension, unspecified Status: Acute Assessment and Plan: receiving fluids and blood (7) Hallucinations: Code(s): R44.3 - Hallucinations, unspecified Status: Acute Assessment and Plan: patient is on multiple psychotropic holding aripiprazole holding trazodone holding Ativan holding tramadol restarted as needed Plan #GI Bleed Possible EGD and Colonoscopy HgB trend, no significant drop No overt GI bleed Sx anemia, so target 8 Cont holding Elquis #Cirrhosis/Ascites Possible due to Obesity/DM 2 HbSag and Anti HCV negative Ammonia <9 Cont monitor Subjective Date/time seen: 02/11/24 07:37 Interval history: Patient was evaluated at the bedside. Patient came from [facility] residential. Chart review indicates patient has episodes of hallucination in the residential. Patient is on 3 L oxygen baseline due to COPD. ED workup shows CTA, head CT, chest x-ray and urinalysis shows no significant findings. Patient had episodes of hypotension and hyperthermia. Patient started on IV fluids. Not able to identify the source of infection but hypotension believed to be due to the down trending of hemoglobin. Stool guaiac is positive and GI is consulted. In regards to hyperthermia blood cultures obtained. We will try to look for any source of infection dental, sacral or other possible source. In regards to cirrhosis she was already worked up in the past and is HBsAg and anti HCV negative. Her most likely cause of cirrhosis is her underlying type 2 diabetes and morbid obesity. Ordered ammonia, anemia panel and hepatitis panel. 02/10: Patient was lethargic and bowel prep was not properly. Patient wants EGD and colonoscopy for tomorrow. Today the hemoglobin is 10.5. Ammonium less than 9. No acute events reported overnight. Exam Narrative: lying in stretcher Const: General: comfortable, no acute distress, well developed, alert, awake, ill appearing chronically, average body habitus and obese Nutritional Appearance: average body habitus and obese Orientation/consciousness: oriented to person, oriented to place and patient oriented x3 HENMT: Head: normal to inspection, normocephalic and atraumatic Ears: hearing grossly normal bilaterally Face/Nose/Sinus: normal facial exam Face and sinus: normal facial exam Eyes: General: appearance normal, both eyes and all related structures Pupils: Equal, round and reactive pupils present EOM: EOMs intact bilaterally Neck: Neck: full ROM, no lymphadenopathy and no JVD Thyroid: thyroid normal Lymphatic: no lymphadenopathy noted Chest: Other: double mastectomy Resp: Effort & Inspection: normal respiratory effort and able to speak in complete sentences Auscultation: clear to auscultation bilaterally Cardio: Jugular venous distension: no JVD Rate: regular rate Rhythm: regular rhythm Heart sounds: S1 normal heart sound present and S2 normal heart sound present : General: Yes deferred Skin: Rashes: no rashes Wounds: no wounds Neuro: General: oriented to person, oriented to place, patient oriented x3, CN's II-XI intact bilaterally and Unable to assess gait Cranial nerves: Yes CN's II-XII intact bilaterally and Yes Equal, round and reactive pupils present Cognition (Neuro): normal cognition Speech: normal speech Gait exam (Neuro): Normal gait present and Unable to assess gait Motor exam (neuro): 5/5 motor strength present throughout Other: Functional quadriplegia Extrem: General: normal to inspection, full ROM, no joint enlargement, no pedal edema and edema ( dependent edema) bilateral Objective Data Vital Signs Vital Signs: Vital Signs - 24 hr 02/10/24 08:00 02/10/24 08:26 02/10/24 08:33 Temperature 98 F Pulse Rate 80 79 Respiratory Rate 22 H Blood Pressure 139/79 Pulse Oximetry 96 96 Oxygen Delivery Nasal Cannula Oxygen Flow Rate 3 02/10/24 08:00 02/10/24 08:00 02/10/24 10:00 Temperature Pulse Rate 71 65 Respiratory Rate Blood Pressure Pulse Oximetry 98 Oxygen Delivery Nasal Cannula Oxygen Flow Rate 3 02/10/24 12:00 02/10/24 12:00 02/10/24 12:00 Temperature 97.7 F Pulse Rate 79 67 Respiratory Rate 20 Blood Pressure 129/93 H Pulse Oximetry 98 100 Oxygen Delivery Nasal Cannula Oxygen Flow Rate 3 02/10/24 14:00 02/10/24 16:00 02/10/24 16:00 Temperature Pulse Rate 68 76 Respiratory Rate Blood Pressure Pulse Oximetry 96 Oxygen Delivery Nasal Cannula Oxygen Flow Rate 3 02/10/24 16:00 02/10/24 18:00 02/10/24 19:58 Temperature 97.6 F 98.1 F Pulse Rate 78 70 60 Respiratory Rate 22 H 20 Blood Pressure 151/87 H 103/71 Pulse Oximetry 97 100 Oxygen Delivery Oxygen Flow Rate 02/10/24 20:00 02/10/24 20:00 02/10/24 21:29 Temperature Pulse Rate 60 56 L Respiratory Rate Blood Pressure Pulse Oximetry 100 Oxygen Delivery Nasal Cannula Oxygen Flow Rate 3 02/10/24 22:00 02/11/24 00:00 02/11/24 00:00 Temperature Pulse Rate 62 62 63 Respiratory Rate 20 Blood Pressure Pulse Oximetry 100 Oxygen Delivery Nasal Cannula Oxygen Flow Rate 3 02/11/24 00:00 02/11/24 02:00 02/11/24 03:51 Temperature 97.9 F Pulse Rate 63 73 73 Respiratory Rate 20 20 Blood Pressure 125/91 H Pulse Oximetry 100 100 Oxygen Delivery Nasal Cannula Oxygen Flow Rate 3 02/11/24 04:00 02/11/24 04:00 02/11/24 06:00 Temperature 98.4 F Pulse Rate 61 73 74 Respiratory Rate 20 Blood Pressure 110/67 Pulse Oximetry 100 Oxygen Delivery Oxygen Flow Rate Intake/Output Intake/Output: Intake & Output 02/08/24 02/09/24 02/10/24 02/11/24 23:59 23:59 23:59 23:59 Intake Total 1000 2890 200 Balance 1000 2890 200 Meds/Results Medications: Active Medications Generic Name Dose Route Start Last Admin Trade Name Freq PRN Reason Stop Dose Admin Acetaminophen 650 mg 02/10/24 01:21 Acetaminophen 325 Mg Tablet PO Q4H PRN Mild Pain (1-3) or Fever Acetaminophen 650 mg 02/10/24 09:00 02/10/24 17:14 Acetaminophen 325 Mg Tablet PO 03/11/24 08:59 Not Given TID NICOLE Al Hydrox/Mg Hydrox/Simethicone 5 ml 02/10/24 03:33 Mag Hydrox/Al Hydrox/Simeth 30 Ml Udc PO Q6H PRN Heartburn Albuterol 2 puff 02/10/24 03:33 Albuterol Sulfate (*Sp) Aerosol 1 Puff INHALATION Q4H PRN S.O.B Albuterol/Ipratropium 3 ml 02/10/24 03:33 Ipratropium 0.5 Mg/Albuterol Sulfate 2.5 Mg Ampul.Neb 3 Ml INHALATION Q6HRT PRN sob/wheezing Amiodarone HCl 200 mg 02/10/24 09:00 02/10/24 21:29 Amiodarone Hcl 200 Mg Tablet PO Not Given Q12HR NICOLE Buspirone HCl 10 mg 02/10/24 09:00 02/10/24 16:58 Buspirone Hcl 10 Mg Tablet PO 10 mg TID NICOLE Administration Calcium Carbonate 400 mg 02/10/24 03:33 Calcium Carbonate (Tums) 500 Mg (200 Mg Elemental) PO Q8H PRN Heartburn Escitalopram Oxalate 20 mg 02/10/24 09:00 02/10/24 08:27 Escitalopram Oxalate 10 Mg Tablet PO 20 mg DAILY NICOLE Administration Ferrous Sulfate 325 mg 02/10/24 09:00 02/10/24 08:27 Ferrous Sulfate [address] PO 03/11/24 08:59 325 mg DAILY NICOLE Administration Gabapentin 600 mg 02/10/24 09:00 02/10/24 16:58 Gabapentin 300 Mg Capsule PO 600 mg TID NICOLE Administration Guaifenesin 600 mg 02/10/24 09:00 02/10/24 21:29 Guaifenesin 12 Hr 600 Mg Tabcr PO Not Given Q12HR [facility] Insulin Aspart 5 units 02/10/24 08:00 02/10/24 16:58 Insulin Aspart (*Bkc) 100 Units/Ml 0.05 units/kg (5 units) 5 units SUB-Q Administration TIDWM NICOLE Magnesium Hydroxide 30 ml 02/10/24 03:33 Magnesium Hydroxide Susp 30 Ml Udc PO DAILY PRN Constipation Memantine 10 mg 02/10/24 09:00 02/10/24 21:30 Memantine 10 Mg Tablet PO Not Given Q12HR [facility] Non-Formulary Medication 1 spray 02/10/24 03:33 Naloxone [Narcan] EACH NARE 03/11/24 03:32 PRN PRN Opiate Reversal Ondansetron HCl 4 mg 02/10/24 01:21 Ondansetron Inj 4 Mg/2 Ml Vial IV PUSH Q4H PRN Nausea Pantoprazole Sodium 40 mg 02/10/24 21:00 02/10/24 20:50 Pantoprazole Sodium Iv 40 Mg Vial IV PUSH 40 mg Q12HR NICOLE Administration Perflutren Lipid Microsphere 0 ml 02/10/24 08:54 Perflutren Lipid Microspheres 1.5 Ml Vial Diluted To 10 Ml Total Volume IV PUSH 02/13/24 08:55 ONCE PRN adequate visualization Protocol Primidone 50 mg 02/10/24 09:00 02/10/24 21:30 Primidone 50 Mg Tablet PO Not Given Q12HR NICOLE Ropinirole HCl 0.5 mg 02/10/24 21:00 02/10/24 21:30 Ropinirole Hcl 0.5 Mg Tablet PO Not Given QHS [facility] Tamoxifen Citrate 20 mg 02/10/24 09:00 02/10/24 08:29 Tamoxifen Citrate (*Chemo) 10 Mg Tablet PO 03/11/24 08:59 20 mg DAILY NICOLE Administration Radiology Results: ITS Impressions Head CT 02/09/24 23:17 IMPRESSION: 1. Normal aging brain. No acute intracranial process. 2. Bilateral otomastoiditis effusions. Chest/Abdomen CTA 02/09/24 23:21 IMPRESSION: 1. Normal caliber aorta with no aneurysm or dissection. No other acute intrathoracic or abdominal process. 2. Moderate emphysema with large bulla occupying a significant portion of the anterior left mid and upper hemithorax. 3. Unchanged small pericardial effusion. 4. Cirrhosis minimal ascites. 5. Cholelithiasis. Chest X-Ray 02/09/24 23:34 IMPRESSION: 1. Emphysema. Labs Labs: Laboratory Results - last 24 hr 02/09/24 02/10/24 02/10/24 21:46 08:11 08:39 WBC RBC Hgb Hct MCV MCH MCHC RDW Plt Count MPV Absolute Retic Percent Retic Immature Retic Fraction Retic Hgb Content Puncture Site ABG pH ABG pCO2 ABG pO2 ABG PO2/FiO2 Ratio ABG HCO3 ABG O2 Saturation ABG O2 Content ABG Base Excess A-a Gradient Oxyhemoglobin Total Hemoglobin O2 Delivery Device O2 Liters/Min FiO2 Sodium 140 Potassium 4.6 Chloride 103 Carbon Dioxide 31 H Anion Gap 6 BUN 17 Creatinine 0.50 L Estim Creat Clear Calc 102 Estimated GFR > 60 Glucose 228 H POC Capillary Glucose 230 H Calcium 7.9 L Iron 30 L TIBC 358 % Saturation 8 L Ferritin 35.30 Total Bilirubin 0.5 AST 44 H ALT 31 Alkaline Phosphatase 60 Ammonia Lactate Dehydrogenase Total Protein 7.0 Albumin 3.6 Vitamin B12 842.0 Folate 10.2 Hepatitis A IgM Ab Hep Bs Antigen Hep B Core IgM Ab Hepatitis C Ab Screen 02/10/24 02/10/24 02/10/24 10:06 11:48 11:55 WBC RBC Hgb Hct MCV MCH MCHC RDW Plt Count MPV Absolute Retic Percent Retic Immature Retic Fraction Retic Hgb Content Puncture Site ABG pH ABG pCO2 ABG pO2 ABG PO2/FiO2 Ratio ABG HCO3 ABG O2 Saturation ABG O2 Content ABG Base Excess A-a Gradient Oxyhemoglobin Total Hemoglobin O2 Delivery Device O2 Liters/Min FiO2 Sodium Potassium Chloride Carbon Dioxide Anion Gap BUN Creatinine Estim Creat Clear Calc Estimated GFR Glucose POC Capillary Glucose 212 H Calcium Iron TIBC % Saturation Ferritin Total Bilirubin AST ALT Alkaline Phosphatase Ammonia < 9 L Lactate Dehydrogenase Total Protein Albumin Vitamin B12 Folate Hepatitis A IgM Ab Negative Hep Bs Antigen Negative Hep B Core IgM Ab Negative Hepatitis C Ab Screen Negative 02/10/24 02/10/24 02/10/24 15:44 16:32 16:33 WBC RBC Hgb Hct MCV MCH MCHC RDW Plt Count MPV Absolute Retic 0.15 H Percent Retic 4.20 Immature Retic Fraction 29.9 H Retic Hgb Content 26.4 L Puncture Site ABG pH ABG pCO2 ABG pO2 ABG PO2/FiO2 Ratio ABG HCO3 ABG O2 Saturation ABG O2 Content ABG Base Excess A-a Gradient Oxyhemoglobin Total Hemoglobin O2 Delivery Device O2 Liters/Min FiO2 Sodium Potassium Chloride Carbon Dioxide Anion Gap BUN Creatinine Estim Creat Clear Calc Estimated GFR Glucose POC Capillary Glucose 173 H Calcium Iron 53 TIBC 347 % Saturation 15 L Ferritin 32.30 Total Bilirubin AST ALT Alkaline Phosphatase Ammonia < 9 L Lactate Dehydrogenase 136 Total Protein Albumin Vitamin B12 Folate Hepatitis A IgM Ab Hep Bs Antigen Hep B Core IgM Ab Hepatitis C Ab Screen 02/10/24 02/11/24 20:39 04:41 WBC 8.1 RBC 3.55 L Hgb 10.5 L Hct 34.2 L MCV 96.3 MCH 29.6 MCHC 30.7 L RDW 15.7 H Plt Count 208 MPV 10.9 H Absolute Retic Percent Retic Immature Retic Fraction Retic Hgb Content Puncture Site Left radial ABG pH 7.438 ABG pCO2 46.7 H ABG pO2 101.8 H ABG PO2/FiO2 Ratio 3.18 ABG HCO3 30.9 H ABG O2 Saturation 97.8 ABG O2 Content 14.4 L ABG Base Excess 5.9 A-a Gradient 71.7 Oxyhemoglobin 96.6 Total Hemoglobin 10.5 L O2 Delivery Device Nasal cannula O2 Liters/Min 3.0 FiO2 32 Sodium Potassium Chloride Carbon Dioxide Anion Gap BUN Creatinine Estim Creat Clear Calc Estimated GFR Glucose POC Capillary Glucose Calcium Iron TIBC % Saturation Ferritin Total Bilirubin AST ALT Alkaline Phosphatase Ammonia Lactate Dehydrogenase Total Protein Albumin Vitamin B12 Folate Hepatitis A IgM Ab Hep Bs Antigen Hep B Core IgM Ab Hepatitis C Ab Screen Hospitalist MIPS Advance Care Plan I have confirmed that the patient's Advanced Care Plan is present, code status is documented, or surrogate decision maker is listed in patient medical record.: Yes Medication Reconciliation I have utilized all available resources to obtain, update and review the patients current medications (includes all prescriptions, OTC, herbals, cannabis, and nutritional supplements).: Yes
[2024-02-11 07:39] LABS: Alanine Aminotransferase 26 U/L (6-35); Albumin Level 3.2 g/dL (3.5-5.1); Alkaline Phosphatase 61 U/L (38-126); Anion Gap 2 mmol/L (4-12); Aspartate Amino Transferase 33 U/L (14-36); Bilirubin,Total 0.5 mg/dL (0.2-1.3); Blood Urea Nitrogen 15 mg/dL (7-17); Calcium 8.4 mg/dL (8.4-10.2); Carbon Dioxide 35 mmol/L (22-30); Chloride 102 mmol/L (98-107); Estimated CRCL calculation 87 ml/min; Estimated Glomerular Filt Rate > 60; Glucose 117 mg/dL (65-110); Potassium 3.6 mmol/L (3.4-5.0); Sodium 139 mmol/L (137-145)
[2024-02-11] MEDS: AMIODARONE HCL 200 MG TABLET PO ×2 (10:17→20:25)
[2024-02-11] MEDS: ACETAMINOPHEN 325 MG TABLET 650 MG PO ×2 (10:17→17:12)
[2024-02-11] MEDS: guaiFENesin 12 HR 600 MG TABCR PO ×2 (10:18→20:25)
[2024-02-11] MEDS: GABAPENTIN 300 MG CAPSULE 600 MG PO ×3 (10:18→17:12)
[2024-02-11] MEDS: MEMANTINE 10 MG TABLET PO ×2 (10:18→20:25)
[2024-02-11] MEDS: ESCITALOPRAM OXALATE 10 MG TABLET 20 MG PO (10:18)
[2024-02-11] MEDS: FERROUS SULFATE 325 MG TABLET DR PO (10:18)
[2024-02-11] MEDS: busPIRone HCL 10 MG TABLET PO ×3 (10:18→17:12)
[2024-02-11] MEDS: TAMOXIFEN CITRATE (*CHEMO) 10 MG TABLET 20 MG PO (10:19)
[2024-02-11] MEDS: PANTOPRAZOLE SODIUM IV 40 MG VIAL IV PUSH ×2 (10:19→20:25)
[2024-02-11] MEDS: PRIMIDONE 50 MG TABLET PO ×2 (10:19→20:25)
[2024-02-11 10:43] LABS: Glucose Point of Care 122 mg/dl (65-105)
[2024-02-11 12:03] LABS: Glucose Point of Care 236 mg/dl (65-105)
[2024-02-11] MEDS: INSULIN ASPART (*BKC) 100 UNITS/ML SUB-Q (12:21)
[2024-02-11 16:13] LABS: Glucose Point of Care 107 mg/dl (65-105)
--- NOTE | 2024-02-11 16:45 | PC.NURSE ---
This patient, Marleni Mcgrath, was received from IMU on 02/11/24 at 1645. Patient/family oriented to unit policies and routines
--- NOTE | 2024-02-11 17:06 | WPDGIPROGNO ---
Progress Note: A&P Assessment and Plan (1) Heme positive stool: Code(s): R19.5 - Other fecal abnormalities Status: Acute Assessment and Plan: The patient did not tolerate prep for colonoscopy last night. Will prep her tonight for EGD and colonoscopy tomorrow. Patient is stable from a hemodynamic standpoint. There is no evidence of acute GI bleeding at this moment. (2) Cirrhosis: Code(s): K74.60 - Unspecified cirrhosis of liver Status: Acute (3) Acute GI bleeding: Code(s): K92.2 - Gastrointestinal hemorrhage, unspecified Status: Acute Subjective Date/time seen: 02/11/24 17:06 Objective Data Vital Signs Vital Signs: Vital Signs - 24 hr 02/10/24 18:00 02/10/24 19:58 02/10/24 20:00 Temperature 98.1 F Pulse Rate 70 60 60 Respiratory Rate 20 Blood Pressure 103/71 Pulse Oximetry 100 Oxygen Delivery Oxygen Flow Rate 02/10/24 20:00 02/10/24 21:29 02/10/24 22:00 Temperature Pulse Rate 56 L 62 Respiratory Rate Blood Pressure Pulse Oximetry 100 Oxygen Delivery Nasal Cannula Oxygen Flow Rate 3 02/11/24 00:00 02/11/24 00:00 02/11/24 00:00 Temperature 97.9 F Pulse Rate 62 63 63 Respiratory Rate 20 20 Blood Pressure 125/91 H Pulse Oximetry 100 100 Oxygen Delivery Nasal Cannula Oxygen Flow Rate 3 02/11/24 02:00 02/11/24 03:51 02/11/24 04:00 Temperature Pulse Rate 73 73 61 Respiratory Rate 20 Blood Pressure Pulse Oximetry 100 Oxygen Delivery Nasal Cannula Oxygen Flow Rate 3 02/11/24 04:00 02/11/24 06:00 02/11/24 07:37 Temperature 98.4 F Pulse Rate 73 74 Respiratory Rate 20 Blood Pressure 110/67 Pulse Oximetry 100 100 Oxygen Delivery Nasal Cannula Oxygen Flow Rate 3 02/11/24 07:53 02/11/24 10:17 02/11/24 11:39 Temperature 98.0 F 98.8 F Pulse Rate 68 82 77 Respiratory Rate 20 24 H Blood Pressure 121/83 103/62 Pulse Oximetry 100 99 Oxygen Delivery Oxygen Flow Rate 02/11/24 08:00 02/11/24 08:00 02/11/24 10:00 Temperature Pulse Rate 72 74 Respiratory Rate Blood Pressure Pulse Oximetry 98 Oxygen Delivery Nasal Cannula Oxygen Flow Rate 3 02/11/24 12:00 02/11/24 12:00 02/11/24 14:00 Temperature Pulse Rate 76 77 Respiratory Rate Blood Pressure Pulse Oximetry 97 Oxygen Delivery Nasal Cannula Oxygen Flow Rate 3 02/11/24 15:31 Temperature 98.6 F Pulse Rate 76 Respiratory Rate 20 Blood Pressure 100/58 L Pulse Oximetry 100 Oxygen Delivery Oxygen Flow Rate Intake/Output Intake/Output: Intake & Output 02/08/24 02/09/24 02/10/24 02/11/24 23:59 23:59 23:59 23:59 Intake Total 1000 2890 440 Balance 1000 2890 440 Meds/Results Medications: Active Medications Generic Name Dose Route Start Last Admin Trade Name Freq PRN Reason Stop Dose Admin Acetaminophen 650 mg 02/10/24 01:21 Acetaminophen 325 Mg Tablet PO Q4H PRN Mild Pain (1-3) or Fever Acetaminophen 650 mg 02/10/24 09:00 02/11/24 12:21 Acetaminophen 325 Mg Tablet PO 03/11/24 08:59 Not Given TID NICOLE Al Hydrox/Mg Hydrox/Simethicone 5 ml 02/10/24 03:33 Mag Hydrox/Al Hydrox/Simeth 30 Ml Udc PO Q6H PRN Heartburn Albuterol 2 puff 02/10/24 03:33 Albuterol Sulfate (*Sp) Aerosol 1 Puff INHALATION Q4H PRN S.O.B Albuterol/Ipratropium 3 ml 02/10/24 03:33 Ipratropium 0.5 Mg/Albuterol Sulfate 2.5 Mg Ampul.Neb 3 Ml INHALATION Q6HRT PRN sob/wheezing Amiodarone HCl 200 mg 02/10/24 09:00 02/11/24 10:17 Amiodarone Hcl 200 Mg Tablet PO 200 mg Q12HR NICOLE Administration Bisacodyl 20 mg 02/11/24 18:33 Bisacodyl 5 Mg Tablet Ec PO 02/11/24 18:34 ONCE ONE Buspirone HCl 10 mg 02/10/24 09:00 02/11/24 12:21 Buspirone Hcl 10 Mg Tablet PO 10 mg TID NICOLE Administration Calcium Carbonate 400 mg 02/10/24 03:33 Calcium Carbonate (Tums) 500 Mg (200 Mg Elemental) PO Q8H PRN Heartburn Escitalopram Oxalate 20 mg 02/10/24 09:00 02/11/24 10:18 Escitalopram Oxalate 10 Mg Tablet PO 20 mg DAILY NICOLE Administration Ferrous Sulfate 325 mg 02/10/24 09:00 02/11/24 10:18 Ferrous Sulfate [address] PO 03/11/24 08:59 325 mg DAILY NICOLE Administration Gabapentin 600 mg 02/10/24 09:00 02/11/24 12:21 Gabapentin 300 Mg Capsule PO 600 mg TID NICOLE Administration Guaifenesin 600 mg 02/10/24 09:00 02/11/24 10:18 Guaifenesin 12 Hr 600 Mg Tabcr PO 600 mg Q12HR NICOLE Administration Insulin Aspart 5 units 02/10/24 08:00 02/11/24 12:21 Insulin Aspart (*Bkc) 100 Units/Ml 0.05 units/kg (5 units) 5 units SUB-Q Administration TIDWM NICOLE Magnesium Citrate 300 ml 02/12/24 03:00 Magnesium Citrate 300 Ml Btl PO 02/12/24 03:01 ONCE ONE Magnesium Hydroxide 30 ml 02/10/24 03:33 Magnesium Hydroxide Susp 30 Ml Udc PO DAILY PRN Constipation Memantine 10 mg 02/10/24 09:00 02/11/24 10:18 Memantine 10 Mg Tablet PO 10 mg Q12HR NICOLE Administration Ondansetron HCl 4 mg 02/10/24 01:21 Ondansetron Inj 4 Mg/2 Ml Vial IV PUSH Q4H PRN Nausea Pantoprazole Sodium 40 mg 02/10/24 21:00 02/11/24 10:19 Pantoprazole Sodium Iv 40 Mg Vial IV PUSH 40 mg Q12HR NICOLE Administration Perflutren Lipid Microsphere 0 ml 02/10/24 08:54 Perflutren Lipid Microspheres 1.5 Ml Vial Diluted To 10 Ml Total Volume IV PUSH 02/13/24 08:55 ONCE PRN adequate visualization Protocol Polyethylene Glycol 238 gm 02/11/24 20:33 Polyethylene Glycol 3350 238 Gm Bottle PO 02/11/24 20:34 ONCE ONE Primidone 50 mg 02/10/24 09:00 02/11/24 10:19 Primidone 50 Mg Tablet PO 50 mg Q12HR NICOLE Administration Ropinirole HCl 0.5 mg 02/10/24 21:00 02/10/24 21:30 Ropinirole Hcl 0.5 Mg Tablet PO Not Given QHS NICOLE Tamoxifen Citrate 20 mg 02/10/24 09:00 02/11/24 10:19 Tamoxifen Citrate (*Chemo) 10 Mg Tablet PO 03/11/24 08:59 20 mg DAILY NICOLE Administration Radiology Results: ITS Impressions Head CT 02/09/24 23:17 IMPRESSION: 1. Normal aging brain. No acute intracranial process. 2. Bilateral otomastoiditis effusions. Chest/Abdomen CTA 02/09/24 23:21 IMPRESSION: 1. Normal caliber aorta with no aneurysm or dissection. No other acute intrathoracic or abdominal process. 2. Moderate emphysema with large bulla occupying a significant portion of the anterior left mid and upper hemithorax. 3. Unchanged small pericardial effusion. 4. Cirrhosis minimal ascites. 5. Cholelithiasis. Chest X-Ray 02/09/24 23:34 IMPRESSION: 1. Emphysema. Venous Doppler Study 02/11/24 10:06 IMPRESSION: Negative right upper extremity venous US. No deep vein thrombosis. Labs Labs: Laboratory Results - last 24 hr 02/10/24 02/10/24 02/11/24 16:33 20:39 04:41 WBC 8.1 RBC 3.55 L Hgb 10.5 L Hct 34.2 L MCV 96.3 MCH 29.6 MCHC 30.7 L RDW 15.7 H Plt Count 208 MPV 10.9 H Puncture Site Left radial ABG pH 7.438 ABG pCO2 46.7 H ABG pO2 101.8 H ABG PO2/FiO2 Ratio 3.18 ABG HCO3 30.9 H ABG O2 Saturation 97.8 ABG O2 Content 14.4 L ABG Base Excess 5.9 A-a Gradient 71.7 Oxyhemoglobin 96.6 Total Hemoglobin 10.5 L O2 Delivery Device Nasal cannula O2 Liters/Min 3.0 FiO2 32 Sodium Potassium Chloride Carbon Dioxide Anion Gap BUN Creatinine Estim Creat Clear Calc Estimated GFR Glucose POC Capillary Glucose Calcium Iron 53 TIBC 347 % Saturation 15 L Ferritin 32.30 Total Bilirubin AST ALT Alkaline Phosphatase Total Protein Albumin 02/11/24 02/11/24 02/11/24 06:56 08:51 11:36 WBC RBC Hgb Hct MCV MCH MCHC RDW Plt Count MPV Puncture Site ABG pH ABG pCO2 ABG pO2 ABG PO2/FiO2 Ratio ABG HCO3 ABG O2 Saturation ABG O2 Content ABG Base Excess A-a Gradient Oxyhemoglobin Total Hemoglobin O2 Delivery Device O2 Liters/Min FiO2 Sodium 139 Potassium 3.6 Chloride 102 Carbon Dioxide 35 H Anion Gap 2 L BUN 15 Creatinine 0.60 L Estim Creat Clear Calc 87 Estimated GFR > 60 Glucose 117 H POC Capillary Glucose 122 H 236 H Calcium 8.4 Iron TIBC % Saturation Ferritin Total Bilirubin 0.5 AST 33 ALT 26 Alkaline Phosphatase 61 Total Protein 6.0 L Albumin 3.2 L 02/11/24 16:11 WBC RBC Hgb Hct MCV MCH MCHC RDW Plt Count MPV Puncture Site ABG pH ABG pCO2 ABG pO2 ABG PO2/FiO2 Ratio ABG HCO3 ABG O2 Saturation ABG O2 Content ABG Base Excess A-a Gradient Oxyhemoglobin Total Hemoglobin O2 Delivery Device O2 Liters/Min FiO2 Sodium Potassium Chloride Carbon Dioxide Anion Gap BUN Creatinine Estim Creat Clear Calc Estimated GFR Glucose POC Capillary Glucose 107 H Calcium Iron TIBC % Saturation Ferritin Total Bilirubin AST ALT Alkaline Phosphatase Total Protein Albumin
[2024-02-11] MEDS: BISACODYL 5 MG TABLET EC 20 MG PO (18:33)
[2024-02-11] MEDS: rOPINIRole HCL 0.5 MG TABLET PO (20:25)
[2024-02-11] MEDS: polyethylene glycoL 3350 238 GM BOTTLE PO (20:25)
[2024-02-11 20:38] LABS: Glucose Point of Care 148 mg/dl (65-105)
[2024-02-12] VITALS (10 sets, daily range): BP systolic 101–154; BP diastolic 45–81; PULSE 64–82; RESP 17–20; TEMP 36.1–36.9; O2SAT 94–100
[2024-02-12] MEDS: MAGNESIUM CITRATE 300 ML BTL PO (03:00)
[2024-02-12 07:00] LABS: Hematocrit 36.9 % (37.0-47.0); Hemoglobin 10.7 g/dL (12.0-15.0); Mean Corpuscular Hemoglobin 28.3 pg (26-34); Mean Corpuscular Volume 97.6 fl (80-100); Mean Platelet Volume 10.2 fl (7.4-10.4); Platelet Count Result 190 k/mm3 (150-375); Red Blood Count 3.78 M/mm3 (4.2-5.4); White Blood Count 6.8 K/mm3 (4.5-10.0)
[2024-02-12 07:34] LABS: Alanine Aminotransferase 29 U/L (6-35); Albumin Level 3.3 g/dL (3.5-5.1); Alkaline Phosphatase 64 U/L (38-126); Anion Gap 7 mmol/L (4-12); Aspartate Amino Transferase 41 U/L (14-36); Bilirubin,Total 0.5 mg/dL (0.2-1.3); Blood Urea Nitrogen 6 mg/dL (7-17); Calcium 8.2 mg/dL (8.4-10.2); Carbon Dioxide 26 mmol/L (22-30); Chloride 105 mmol/L (98-107); Estimated CRCL calculation 87 ml/min; Estimated Glomerular Filt Rate > 60; Glucose 118 mg/dL (65-110); Potassium 3.1 mmol/L (3.4-5.0); Sodium 138 mmol/L (137-145)
[2024-02-12 07:39] LABS: Glucose Point of Care 135 mg/dl (65-105)
[2024-02-12] MEDS: PANTOPRAZOLE SODIUM IV 40 MG VIAL IV PUSH (08:23)
[2024-02-12] MEDS: AMIODARONE HCL 200 MG TABLET PO ×2 (08:24→20:11)
[2024-02-12] MEDS: ACETAMINOPHEN 325 MG TABLET 650 MG PO ×3 (08:24→16:26)
[2024-02-12] MEDS: TAMOXIFEN CITRATE (*CHEMO) 10 MG TABLET 20 MG PO (08:24)
[2024-02-12] MEDS: GABAPENTIN 300 MG CAPSULE 600 MG PO ×3 (08:24→16:26)
[2024-02-12] MEDS: FERROUS SULFATE 325 MG TABLET DR PO (08:25)
[2024-02-12] MEDS: ESCITALOPRAM OXALATE 10 MG TABLET 20 MG PO (08:25)
[2024-02-12] MEDS: busPIRone HCL 10 MG TABLET PO ×3 (08:25→16:26)
[2024-02-12] MEDS: guaiFENesin 12 HR 600 MG TABCR PO ×2 (08:25→20:11)
[2024-02-12] MEDS: MEMANTINE 10 MG TABLET PO ×2 (08:25→20:11)
[2024-02-12] MEDS: PRIMIDONE 50 MG TABLET PO ×2 (08:25→20:11)
[2024-02-12 08:33] LABS: Haptoglobin 59 mg/dL (43-212)
--- NOTE | 2024-02-12 11:50 | PC.NURSE ---
To GI Lab per ann.
[2024-02-12 12:01] LABS: Glucose Point of Care 153 mg/dl (65-105)
[2024-02-12 12:03] LABS: Glucose Point of Care 134 mg/dl (65-105)
--- NOTE | 2024-02-12 12:25 | P.PNAN_ITS ---
Anes - Initial Pre Proc Eval Procedure: Operation Date: 02/12/24 10:30 Proposed Procedures p Esophagogastroduodenoscopy & Colonoscopy - Tulio Burkett MD Date/Time: 02/12/24 12:25 Surgeon: Ingris Swain MD Pre Op Diagnosis: GI bleeding, hypotension, atypical chest pain Patient Data Age: 73 Gender: F Height: 1.7 m Weight: 103.9 kg Last Vital Signs Temp 97 F L 02/12/24 12:10 Pulse 75 02/12/24 12:10 Resp 18 02/12/24 12:10 BP 112/74 02/12/24 12:10 Pulse Ox 100 02/12/24 12:10 O2 Del Method Nasal Cannula 02/12/24 12:10 O2 Flow Rate 3 02/12/24 12:10 Allergies Allergy/AdvReac Type Severity Reaction Status Date / Time amoxicillin [From Augmentin] Allergy Unknown Verified 02/12/24 12:04 clavulanic acid Allergy Unknown Verified 02/12/24 12:04 [From Augmentin] Home Medications Medication Instructions Recorded Confirmed Type acetaminophen 650 mg tablet 650 mg PO TID 10/28/23 02/12/24 History albuterol sulfate 90 mcg/actuation 2 puff inhalation Q4H PRN S.O.B 10/28/23 02/12/24 History aerosol inhaler aripiprazole 2 mg tablet 2 mg PO DAILY 10/28/23 02/12/24 History aripiprazole 5 mg tablet 5 mg PO DAILY 10/28/23 02/12/24 History buspirone 10 mg tablet 10 mg PO TID 10/28/23 02/12/24 History cholecalciferol (vitamin D3) 25 25 mcg PO DAILY 10/28/23 02/12/24 History mcg (1,000 unit) capsule (Vitamin D3) escitalopram oxalate 10 mg tablet 20 mg PO DAILY 10/28/23 02/12/24 History ferrous sulfate 325 mg (65 mg 325 mg PO DAILY 10/28/23 02/12/24 History iron) tablet furosemide 40 mg tablet 40 mg PO DAILY 10/28/23 02/12/24 History gabapentin 600 mg tablet 600 mg PO TID 10/28/23 02/12/24 History insulin aspart U-100 100 unit/mL See Rx Instructions .Route .COMPLEX 10/28/23 02/12/24 History (3 mL) subcutaneous pen lorazepam 0.5 mg tablet 0.5 mg PO QHS 10/28/23 02/12/24 History memantine 10 mg tablet 10 mg PO BID 10/28/23 02/12/24 History metformin 500 mg tablet 500 mg PO DAILY 10/28/23 02/12/24 History primidone 50 mg tablet 50 mg PO BID 10/28/23 02/12/24 History ropinirole 0.5 mg tablet 0.5 mg PO QHS 10/28/23 02/12/24 History tamoxifen 20 mg tablet 20 mg PO DAILY 10/28/23 02/12/24 History tramadol 50 mg tablet 50 mg PO QID 10/28/23 02/12/24 History trazodone 50 mg tablet 50 mg PO QHS 10/28/23 02/12/24 History aluminum-mag hydroxide-simethicone 5 ml PO Q6H PRN Heartburn 01/11/24 02/12/24 History 400 mg-400 mg-40 mg/5 mL oral susp (Maalox Maximum Strength) calcium carbonate 400 mg PO Q8H PRN Heartburn 01/11/24 02/12/24 History cyanocobalamin (vitamin B-12) 250 250 mcg PO DAILY 01/11/24 02/12/24 History mcg tablet guaifenesin 600 mg tablet,extended 600 mg PO BID 01/11/24 02/12/24 History release ipratropium 0.5 mg-albuterol 3 mg 3 ml inhalation Q6H PRN 01/11/24 02/12/24 History (2.5 mg base)/3 mL nebulization sob/wheezing soln magnesium hydroxide 2,400 mg/10 mL 30 ml PO DAILY PRN Constipation 01/11/24 02/12/24 History oral suspension (Milk Of Magnesia Concentrated) multivitamin with minerals 1 tablet PO DAILY 01/11/24 02/12/24 History (Multiple Vitamin-Minerals tablet) naloxone 4 mg/actuation nasal 1 spray intranasal Q2-3M PRN 01/11/24 02/12/24 History spray (Narcan) Opiate Reversal ondansetron 4 mg disintegrating 4 mg PO Q8H PRN Nausea And Vomiting 01/11/24 02/12/24 History tablet pantoprazole 40 mg tablet,delayed 40 mg PO QAM 01/11/24 02/12/24 History release polyethylene glycol 3350 17 17 g PO HS PRN Constipation 01/11/24 02/12/24 History gram/dose oral powder (Miralax) pyridoxine (vitamin B6) 25 mg 25 mg PO DAILY 01/11/24 02/12/24 History tablet sennosides 8.6 mg tablet (senna) 8.6 mg PO BID 01/11/24 02/12/24 History amiodarone 200 mg tablet (Pacerone) 200 mg PO BID #60 tabs 01/14/24 02/12/24 Rx apixaban 5 mg tablet (Eliquis) 5 mg PO Q12HR #60 tabs 01/14/24 02/12/24 Rx aspirin 81 mg chewable tablet 81 mg PO DAILY@0800 #30 tabs 01/14/24 02/12/24 Rx (Children's Aspirin) losartan 25 mg tablet 12.5 mg PO DAILY #30 tabs 01/14/24 02/12/24 Rx metoprolol tartrate 25 mg tablet 12.5 mg PO BID #30 tabs 01/14/24 02/12/24 Rx Laboratory Tests 02/10/24 02/11/24 02/11/24 16:33 16:11 19:43 WBC RBC Hgb Hct MCV MCH MCHC RDW Plt Count MPV Haptoglobin 59 mg/dL (43-212) Sodium Potassium Chloride Carbon Dioxide Anion Gap BUN Creatinine Estim Creat Clear Calc Estimated GFR Glucose POC Capillary Glucose 107 H mg/dl 148 H mg/dl (65-105) (65-105) Calcium Total Bilirubin AST ALT Alkaline Phosphatase Total Protein Albumin 02/12/24 02/12/24 02/12/24 06:36 07:35 11:40 WBC 6.8 K/mm3 (4.5-10.0) RBC 3.78 L M/mm3 (4.2-5.4) Hgb 10.7 L g/dL (12.0-15.0) Hct 36.9 L % (37.0-47.0) MCV 97.6 fl (80-100) MCH 28.3 pg (26-34) MCHC 29.0 L g/dl (32-36) RDW 16.0 H % (11.5-14.5) Plt Count 190 k/mm3 (150-375) MPV 10.2 fl (7.4-10.4) Haptoglobin Sodium 138 mmol/L (137-145) Potassium 3.1 L mmol/L (3.4-5.0) Chloride 105 mmol/L (98-107) Carbon Dioxide 26 mmol/L (22-30) Anion Gap 7 mmol/L (4-12) BUN 6 L D mg/dL (7-17) Creatinine 0.60 L mg/dL (0.7-1.0) Estim Creat Clear Calc 87 ml/min Estimated GFR > 60 (59 - ) Glucose 118 H mg/dL (65-110) POC Capillary Glucose 135 H mg/dl 153 H mg/dl (65-105) (65-105) Calcium 8.2 L mg/dL (8.4-10.2) Total Bilirubin 0.5 mg/dL (0.2-1.3) AST 41 H U/L (14-36) ALT 29 U/L (6-35) Alkaline Phosphatase 64 U/L (38-126) Total Protein 6.0 L g/dL (6.3-8.2) Albumin 3.3 L g/dL (3.5-5.1) 02/12/24 12:01 WBC RBC Hgb Hct MCV MCH MCHC RDW Plt Count MPV Haptoglobin Sodium Potassium Chloride Carbon Dioxide Anion Gap BUN Creatinine Estim Creat Clear Calc Estimated GFR Glucose POC Capillary Glucose 134 H mg/dl (65-105) Calcium Total Bilirubin AST ALT Alkaline Phosphatase Total Protein Albumin Patient hx anesthesia problems: none Family hx anesthesia problems: none Results Review: All pre-operative results and documents have been reviewed as part of the pre- operative evaluation. FOR[facility]LY [facility] Past Medical History Medical History COPD (chronic obstructive pulmonary disease) Diabetes Surgical History Surgical History No significant past surgical history Social History Social History Smoking packs per day: 1 Smoking cigarettes per day: 20.0 Years smoked: 50 Smoking pack-years: 50.00 Smoking status: Former smoker Second hand tobacco smoke exposure: No Alcohol intake: former Substance use: never Do You Feel Safe in your Home?: Yes Lack of Transportation: No Lack of Food: Never True Current Housing: I Have Housing Concerned About Future Housing: No Difficulty Paying Gas/Electric Bills: No Difficulty Paying for Meds: No Currently Unemployed: No Education: High School Diploma/GED Difficulty w/ Childcare or Family Care: No Spiritual care concerns: No Anes - Eval Final PreProcedure Day of Procedure 02/12/24 12:25 Patient weight: normal Heart: regular rate and rhythm Lungs: clear to auscultation Airway: Mallampati scale and special considerations (Teeth in very poor condition, none loose per pt. ) Neurological: alert and oriented Last oral intake: >/= 8 hours ASA classification: IV Emergent: no Anesthetic plan: proceed Anesthesia type and monitoring: general GIVS and standard monitoring Results Review: All pre-operative results and documents have been reviewed as part of the pre- operative evaluation. COPD on home O2, 3 l, DM, afib, now w melena and confusion, cirrhosis, anemia, improver per hospital notes. Informed Consent: The patient's anesthetic plan and its attendant risks and benefits were discussed with the patient/family/POA. Questions were solicited and answers provided to the satisfaction of the patient/family/POA.
--- NOTE | 2024-02-12 12:52 | PM.IMHP ---
H&P: HPI History of Present Illness Date/Time: 02/12/24 12:52 Chief Complaint: history of GI bleeding Narrative: This is a 73-year-old patient with a history of morbid obesity and type 2 diabetes, who had a severe GI bleeding in the past requiring transfusions. She is brought 3 days ago because of extreme fatigue and was found to have moderate to severe anemia. He was also found to be heme-positive, but did not have any overt GI bleeding, at least recently. In addition, she is known to have cirrhosis by imaging studies showing a nodular liver, and in admission she has evidence of small amount of ascites. We do not have a record showing any endoscopic studies. In the ER she was found to be hypotensive and was noted to have a hemoglobin of 9.7, hematocrit 32.6 and MCV of 98.2. Due to her being hypotensive the transfer is her 1 unit of packed red blood cells and hemoglobin is up to 10.6. She did have a heme-positive stool in the ER but stool was brown. Per nursing staff she has had no evidence of GI bleeding. Given her transient hemodynamic compromise and the severity of anemia, requiring transfusion, we will study her with colonoscopy and EGD today. Review of Systems Review of Systems: All systems reviewed & are unremarkable except as noted in HPI and below PMFSH Past Medical History Medical History COPD (chronic obstructive pulmonary disease) Diabetes Surgical History Surgical History No significant past surgical history Social History Social History Smoking packs per day: 1 Smoking cigarettes per day: 20.0 Years smoked: 50 Smoking pack-years: 50.00 Smoking status: Former smoker Second hand tobacco smoke exposure: No Alcohol intake: former Substance use: never Do You Feel Safe in your Home?: Yes Lack of Transportation: No Lack of Food: Never True Current Housing: I Have Housing Concerned About Future Housing: No Difficulty Paying Gas/Electric Bills: No Difficulty Paying for Meds: No Currently Unemployed: No Education: High School Diploma/GED Difficulty w/ Childcare or Family Care: No Spiritual care concerns: No Meds Home Medications and Allergies Home Medications Medication Instructions Recorded Confirmed Type acetaminophen 650 mg tablet 650 mg PO TID 10/28/23 02/12/24 History albuterol sulfate 90 mcg/actuation 2 puff inhalation Q4H PRN S.O.B 10/28/23 02/12/24 History aerosol inhaler aripiprazole 2 mg tablet 2 mg PO DAILY 10/28/23 02/12/24 History aripiprazole 5 mg tablet 5 mg PO DAILY 10/28/23 02/12/24 History buspirone 10 mg tablet 10 mg PO TID 10/28/23 02/12/24 History cholecalciferol (vitamin D3) 25 25 mcg PO DAILY 10/28/23 02/12/24 History mcg (1,000 unit) capsule (Vitamin D3) escitalopram oxalate 10 mg tablet 20 mg PO DAILY 10/28/23 02/12/24 History ferrous sulfate 325 mg (65 mg 325 mg PO DAILY 10/28/23 02/12/24 History iron) tablet furosemide 40 mg tablet 40 mg PO DAILY 10/28/23 02/12/24 History gabapentin 600 mg tablet 600 mg PO TID 10/28/23 02/12/24 History insulin aspart U-100 100 unit/mL See Rx Instructions .Route .COMPLEX 10/28/23 02/12/24 History (3 mL) subcutaneous pen lorazepam 0.5 mg tablet 0.5 mg PO QHS 10/28/23 02/12/24 History memantine 10 mg tablet 10 mg PO BID 10/28/23 02/12/24 History metformin 500 mg tablet 500 mg PO DAILY 10/28/23 02/12/24 History primidone 50 mg tablet 50 mg PO BID 10/28/23 02/12/24 History ropinirole 0.5 mg tablet 0.5 mg PO QHS 10/28/23 02/12/24 History tamoxifen 20 mg tablet 20 mg PO DAILY 10/28/23 02/12/24 History tramadol 50 mg tablet 50 mg PO QID 10/28/23 02/12/24 History trazodone 50 mg tablet 50 mg PO QHS 10/28/23 02/12/24 History aluminum-mag hydroxide-simethicone 5 ml PO Q6H PRN Heartburn 01/11/24 02/12/24 History 400 mg-400 mg-40 mg/5 mL oral susp (Maalox Maximum Strength) calcium carbonate 400 mg PO Q8H PRN Heartburn 01/11/24 02/12/24 History cyanocobalamin (vitamin B-12) 250 250 mcg PO DAILY 01/11/24 02/12/24 History mcg tablet guaifenesin 600 mg tablet,extended 600 mg PO BID 01/11/24 02/12/24 History release ipratropium 0.5 mg-albuterol 3 mg 3 ml inhalation Q6H PRN 01/11/24 02/12/24 History (2.5 mg base)/3 mL nebulization sob/wheezing soln magnesium hydroxide 2,400 mg/10 mL 30 ml PO DAILY PRN Constipation 01/11/24 02/12/24 History oral suspension (Milk Of Magnesia Concentrated) multivitamin with minerals 1 tablet PO DAILY 01/11/24 02/12/24 History (Multiple Vitamin-Minerals tablet) naloxone 4 mg/actuation nasal 1 spray intranasal Q2-3M PRN 01/11/24 02/12/24 History spray (Narcan) Opiate Reversal ondansetron 4 mg disintegrating 4 mg PO Q8H PRN Nausea And Vomiting 01/11/24 02/12/24 History tablet pantoprazole 40 mg tablet,delayed 40 mg PO QAM 01/11/24 02/12/24 History release polyethylene glycol 3350 17 17 g PO HS PRN Constipation 01/11/24 02/12/24 History gram/dose oral powder (Miralax) pyridoxine (vitamin B6) 25 mg 25 mg PO DAILY 01/11/24 02/12/24 History tablet sennosides 8.6 mg tablet (senna) 8.6 mg PO BID 01/11/24 02/12/24 History amiodarone 200 mg tablet (Pacerone) 200 mg PO BID #60 tabs 01/14/24 02/12/24 Rx apixaban 5 mg tablet (Eliquis) 5 mg PO Q12HR #60 tabs 01/14/24 02/12/24 Rx aspirin 81 mg chewable tablet 81 mg PO DAILY@0800 #30 tabs 01/14/24 02/12/24 Rx (Children's Aspirin) losartan 25 mg tablet 12.5 mg PO DAILY #30 tabs 01/14/24 02/12/24 Rx metoprolol tartrate 25 mg tablet 12.5 mg PO BID #30 tabs 01/14/24 02/12/24 Rx Allergies Allergy/AdvReac Type Severity Reaction Status Date / Time amoxicillin [From Augmentin] Allergy Unknown Verified 02/12/24 12:04 clavulanic acid Allergy Unknown Verified 02/12/24 12:04 [From Augmentin] Vital Signs Vital Signs - 24 hr 02/11/24 14:00 02/11/24 15:31 02/11/24 20:25 Temperature 98.6 F Pulse Rate 77 76 82 Respiratory Rate 20 Blood Pressure 100/58 L Pulse Oximetry 100 Oxygen Delivery Oxygen Flow Rate 02/11/24 20:00 02/11/24 23:54 02/11/24 20:00 Temperature 97.3 F L 97.6 F Pulse Rate 76 74 Respiratory Rate 16 16 Blood Pressure 109/67 110/70 Pulse Oximetry 99 99 99 Oxygen Delivery Nasal Cannula Oxygen Flow Rate 3 02/12/24 04:00 02/12/24 08:00 02/12/24 08:00 Temperature 97.6 F 98.1 F Pulse Rate 80 74 Respiratory Rate 18 18 Blood Pressure 112/70 154/79 H Pulse Oximetry 100 94 96 Oxygen Delivery Nasal Cannula Oxygen Flow Rate 3 02/12/24 12:10 Temperature 97 F L Pulse Rate 75 Respiratory Rate 18 Blood Pressure 112/74 Pulse Oximetry 100 Oxygen Delivery Nasal Cannula Oxygen Flow Rate 3 H&P: Results Labs Labs: Short CBC 02/12/24 Range/Units 06:36 WBC 6.8 (4.5-10.0) K/mm3 Hgb 10.7 L (12.0-15.0) g/dL Hct 36.9 L (37.0-47.0) % Plt Count 190 (150-375) k/mm3 [facility] 02/12/24 06:36 Sodium 138 Potassium 3.1 L Chloride 105 Carbon Dioxide 26 BUN 6 L D Creatinine 0.60 L Glucose 118 H Calcium 8.2 L Liver Function 02/12/24 Range/Units 06:36 Total Bilirubin 0.5 (0.2-1.3) mg/dL AST 41 H (14-36) U/L ALT 29 (6-35) U/L Alkaline Phosphatase 64 (38-126) U/L Albumin 3.3 L (3.5-5.1) g/dL Assessment and Plan Assessment and plan (1) Normocytic anemia: Code(s): D64.9 - Anemia, unspecified Status: Acute Assessment and Plan: The patient is deemed a good candidate for EGD and colonoscopy. Consent signed. Will proceed. (2) Heme positive stool: Code(s): R19.5 - Other fecal abnormalities Status: Acute (3) Cirrhosis: Code(s): K74.60 - Unspecified cirrhosis of liver Status: Acute (4) Acute GI bleeding: Code(s): K92.2 - Gastrointestinal hemorrhage, unspecified Status: Acute
--- NOTE | 2024-02-12 12:57 | PM.IMHP ---
H&P: HPI History of Present Illness Date/Time: 02/12/24 12:57 Chief Complaint: Heme positive stools PMFSH Past Medical History Medical History COPD (chronic obstructive pulmonary disease) Diabetes Surgical History Surgical History No significant past surgical history Social History Social History Smoking packs per day: 1 Smoking cigarettes per day: 20.0 Years smoked: 50 Smoking pack-years: 50.00 Smoking status: Former smoker Second hand tobacco smoke exposure: No Alcohol intake: former Substance use: never Do You Feel Safe in your Home?: Yes Lack of Transportation: No Lack of Food: Never True Current Housing: I Have Housing Concerned About Future Housing: No Difficulty Paying Gas/Electric Bills: No Difficulty Paying for Meds: No Currently Unemployed: No Education: High School Diploma/GED Difficulty w/ Childcare or Family Care: No Spiritual care concerns: No Meds Home Medications and Allergies Home Medications Medication Instructions Recorded Confirmed Type acetaminophen 650 mg tablet 650 mg PO TID 10/28/23 02/12/24 History albuterol sulfate 90 mcg/actuation 2 puff inhalation Q4H PRN S.O.B 10/28/23 02/12/24 History aerosol inhaler aripiprazole 2 mg tablet 2 mg PO DAILY 10/28/23 02/12/24 History aripiprazole 5 mg tablet 5 mg PO DAILY 10/28/23 02/12/24 History buspirone 10 mg tablet 10 mg PO TID 10/28/23 02/12/24 History cholecalciferol (vitamin D3) 25 25 mcg PO DAILY 10/28/23 02/12/24 History mcg (1,000 unit) capsule (Vitamin D3) escitalopram oxalate 10 mg tablet 20 mg PO DAILY 10/28/23 02/12/24 History ferrous sulfate 325 mg (65 mg 325 mg PO DAILY 10/28/23 02/12/24 History iron) tablet furosemide 40 mg tablet 40 mg PO DAILY 10/28/23 02/12/24 History gabapentin 600 mg tablet 600 mg PO TID 10/28/23 02/12/24 History insulin aspart U-100 100 unit/mL See Rx Instructions .Route .COMPLEX 10/28/23 02/12/24 History (3 mL) subcutaneous pen lorazepam 0.5 mg tablet 0.5 mg PO QHS 10/28/23 02/12/24 History memantine 10 mg tablet 10 mg PO BID 10/28/23 02/12/24 History metformin 500 mg tablet 500 mg PO DAILY 10/28/23 02/12/24 History primidone 50 mg tablet 50 mg PO BID 10/28/23 02/12/24 History ropinirole 0.5 mg tablet 0.5 mg PO QHS 10/28/23 02/12/24 History tamoxifen 20 mg tablet 20 mg PO DAILY 10/28/23 02/12/24 History tramadol 50 mg tablet 50 mg PO QID 10/28/23 02/12/24 History trazodone 50 mg tablet 50 mg PO QHS 10/28/23 02/12/24 History aluminum-mag hydroxide-simethicone 5 ml PO Q6H PRN Heartburn 01/11/24 02/12/24 History 400 mg-400 mg-40 mg/5 mL oral susp (Maalox Maximum Strength) calcium carbonate 400 mg PO Q8H PRN Heartburn 01/11/24 02/12/24 History cyanocobalamin (vitamin B-12) 250 250 mcg PO DAILY 01/11/24 02/12/24 History mcg tablet guaifenesin 600 mg tablet,extended 600 mg PO BID 01/11/24 02/12/24 History release ipratropium 0.5 mg-albuterol 3 mg 3 ml inhalation Q6H PRN 01/11/24 02/12/24 History (2.5 mg base)/3 mL nebulization sob/wheezing soln magnesium hydroxide 2,400 mg/10 mL 30 ml PO DAILY PRN Constipation 01/11/24 02/12/24 History oral suspension (Milk Of Magnesia Concentrated) multivitamin with minerals 1 tablet PO DAILY 01/11/24 02/12/24 History (Multiple Vitamin-Minerals tablet) naloxone 4 mg/actuation nasal 1 spray intranasal Q2-3M PRN 01/11/24 02/12/24 History spray (Narcan) Opiate Reversal ondansetron 4 mg disintegrating 4 mg PO Q8H PRN Nausea And Vomiting 01/11/24 02/12/24 History tablet pantoprazole 40 mg tablet,delayed 40 mg PO QAM 01/11/24 02/12/24 History release polyethylene glycol 3350 17 17 g PO HS PRN Constipation 01/11/24 02/12/24 History gram/dose oral powder (Miralax) pyridoxine (vitamin B6) 25 mg 25 mg PO DAILY 01/11/24 02/12/24 History tablet sennosides 8.6 mg tablet (senna) 8.6 mg PO BID 01/11/24 02/12/24 History amiodarone 200 mg tablet (Pacerone) 200 mg PO BID #60 tabs 01/14/24 02/12/24 Rx apixaban 5 mg tablet (Eliquis) 5 mg PO Q12HR #60 tabs 01/14/24 02/12/24 Rx aspirin 81 mg chewable tablet 81 mg PO DAILY@0800 #30 tabs 01/14/24 02/12/24 Rx (Children's Aspirin) losartan 25 mg tablet 12.5 mg PO DAILY #30 tabs 01/14/24 02/12/24 Rx metoprolol tartrate 25 mg tablet 12.5 mg PO BID #30 tabs 01/14/24 02/12/24 Rx Allergies Allergy/AdvReac Type Severity Reaction Status Date / Time amoxicillin [From Augmentin] Allergy Unknown Verified 02/12/24 12:04 clavulanic acid Allergy Unknown Verified 02/12/24 12:04 [From Augmentin] Vital Signs Vital Signs - 24 hr 02/11/24 14:00 02/11/24 15:31 02/11/24 20:25 Temperature 98.6 F Pulse Rate 77 76 82 Respiratory Rate 20 Blood Pressure 100/58 L Pulse Oximetry 100 Oxygen Delivery Oxygen Flow Rate 02/11/24 20:00 02/11/24 23:54 02/11/24 20:00 Temperature 97.3 F L 97.6 F Pulse Rate 76 74 Respiratory Rate 16 16 Blood Pressure 109/67 110/70 Pulse Oximetry 99 99 99 Oxygen Delivery Nasal Cannula Oxygen Flow Rate 3 02/12/24 04:00 02/12/24 08:00 02/12/24 08:00 Temperature 97.6 F 98.1 F Pulse Rate 80 74 Respiratory Rate 18 18 Blood Pressure 112/70 154/79 H Pulse Oximetry 100 94 96 Oxygen Delivery Nasal Cannula Oxygen Flow Rate 3 02/12/24 12:10 Temperature 97 F L Pulse Rate 75 Respiratory Rate 18 Blood Pressure 112/74 Pulse Oximetry 100 Oxygen Delivery Nasal Cannula Oxygen Flow Rate 3 H&P: Results Labs Labs: Short CBC 02/12/24 Range/Units 06:36 WBC 6.8 (4.5-10.0) K/mm3 Hgb 10.7 L (12.0-15.0) g/dL Hct 36.9 L (37.0-47.0) % Plt Count 190 (150-375) k/mm3 BMP 02/12/24 06:36 Sodium 138 Potassium 3.1 L Chloride 105 Carbon Dioxide 26 BUN 6 L D Creatinine 0.60 L Glucose 118 H Calcium 8.2 L Liver Function 02/12/24 Range/Units 06:36 Total Bilirubin 0.5 (0.2-1.3) mg/dL AST 41 H (14-36) U/L ALT 29 (6-35) U/L Alkaline Phosphatase 64 (38-126) U/L Albumin 3.3 L (3.5-5.1) g/dL Assessment and Plan Assessment and plan (1) Heme positive stool: Code(s): R19.5 - Other fecal abnormalities Status: Acute Assessment and Plan: Patient underwent EGD and colonoscopy today. There is some evidence of portal hypertension, although not severe, there were no gastro esophageal varices. Only mild mosaic pattern of the mucosa compatible with early portal hypertensive gastropathy. Colonsocopy showed multiple diverticula, which could have been the source of sever bleeding in the past, not an active problem. She has some intermittent periods of disorientation and even hallucinations, which may very well represent hepatic encephalopathy. Ammonia level is normal but there is no clinical correlation with clinical encephalopathy which is in essence a clinical diagnosis. Therefore I recommend starting Lactulose 30 ml q 8 hours. In addition there is undoubtedly portal hypertension and ascites, therefore she is a candidate for beta blociers to delay progression of disease. Will start Carvedilol low dose, i.e 6.25 mg once a day. Will observe her during the weekend and if stable can be discharged on Thursday with the above mentioned medications. (2) Cirrhosis: Code(s): K74.60 - Unspecified cirrhosis of liver Status: Acute
[2024-02-12] MEDS: SIMETHICONE ORAL SUSPENSION 20 MG/0.3 ML 30 ML BOTTLE 0.6 ML PO (13:10)
--- NOTE | 2024-02-12 13:21 | SUR.OPER ---
EGD: ended 1312, colon: started 1319
--- NOTE | 2024-02-12 13:30 | PC.NURSE ---
Returned to room per hospital bed from Dialysis. No complaints voiced.
--- NOTE | 2024-02-12 13:32 | PM.IMPN ---
Progress Note: A&P Assessment and Plan (1) Acute GI bleeding: Code(s): K92.2 - Gastrointestinal hemorrhage, unspecified Status: Acute Assessment and Plan: Patient came from [facility] skilled nursing. Chart review indicates patient has episodes of hallucination in the skilled nursing. Patient is on 3 L oxygen baseline due to COPD. ED workup shows CTA, head CT, chest x-ray and urinalysis shows no significant findings. Patient had episodes of hypotension and hyperthermia. Patient started on IV fluids. Not able to identify the source of infection but hypotension believed to be due to the down trending of hemoglobin. In regards to cirrhosis she was already worked up in the past and is HBsAg and anti HCV negative. Her most likely cause of cirrhosis is her underlying type 2 diabetes and morbid obesity. Stool guaiac is positive and GI is consulted.Patient will undergo EGD and Colonoscopy. (2) Atrial fibrillation: Code(s): I48.91 - Unspecified atrial fibrillation Status: Acute Assessment and Plan: rate controlled holding anticoagulation (3) AMS (altered mental status): Code(s): R41.82 - Altered mental status, unspecified Status: Acute Assessment and Plan: CT of the head reviewed patient appears to be back to her usual (4) Abdominal pain: Qualifiers: Abdominal location: generalized Qualified Code(s): R10.84 - Generalized abdominal pain Code(s): R10.9 - Unspecified abdominal pain Status: Acute Assessment and Plan: CT abdomen and pelvis reviewed (5) Diabetes: Qualifiers: Diabetes mellitus complication status: without complication Diabetes mellitus rn long term care insulin use: without penitentiary use Diabetes mellitus type: type 2 Qualified Code(s): E11.9 - Type 2 diabetes mellitus without complications Code(s): E11.9 - Type 2 diabetes mellitus without complications Status: Acute Assessment and Plan: will hold metformin insulin sliding scale as needed (6) Hypotension: Qualifiers: Hypotension type: unspecified hypotension type Qualified Code(s): I95.9 - Hypotension, unspecified Code(s): I95.9 - Hypotension, unspecified Status: Acute Assessment and Plan: receiving fluids and blood (7) Hallucinations: Code(s): R44.3 - Hallucinations, unspecified Status: Acute Assessment and Plan: patient is on multiple psychotropic holding aripiprazole holding trazodone holding Ativan holding tramadol restarted as needed Plan #GI Bleed Possible EGD and Colonoscopy HgB trend, no significant drop No overt GI bleed Sx anemia, so target 8 Cont holding Elquis #Cirrhosis/Ascites Possible due to Obesity/DM 2 HbSag and Anti HCV negative Ammonia <9 Cont monitor Subjective Date/time seen: 02/12/24 13:32 Interval history: Patient was evaluated at the bedside. Patient came from [facility]. Chart review indicates patient has episodes of hallucination in the skilled nursing. Patient is on 3 L oxygen baseline due to COPD. ED workup shows CTA, head CT, chest x-ray and urinalysis shows no significant findings. Patient had episodes of hypotension and hyperthermia. Patient started on IV fluids. Not able to identify the source of infection but hypotension believed to be due to the down trending of hemoglobin. In regards to cirrhosis she was already worked up in the past and is HBsAg and anti HCV negative. Her most likely cause of cirrhosis is her underlying type 2 diabetes and morbid obesity. Stool guaiac is positive and GI is consulted 02/11:Patient will undergo EGD and Colonoscopy today. Exam Narrative: lying in stretcher Const: General: comfortable, no acute distress, well developed, alert, awake, ill appearing chronically, average body habitus and obese Nutritional Appearance: average body habitus and obese Orientation/consciousness: oriented to person, oriented to place and patient oriented x3 HENMT: Head: normal to inspection, normocephalic and atraumatic Ears: hearing grossly normal bilaterally Face/Nose/Sinus: normal facial exam Face and sinus: normal facial exam Eyes: General: appearance normal, both eyes and all related structures Pupils: Equal, round and reactive pupils present EOM: EOMs intact bilaterally Neck: Neck: full ROM, no lymphadenopathy and no JVD Thyroid: thyroid normal Lymphatic: no lymphadenopathy noted Chest: Other: double mastectomy Resp: Effort & Inspection: normal respiratory effort and able to speak in complete sentences Auscultation: clear to auscultation bilaterally Cardio: Jugular venous distension: no JVD Rate: regular rate Rhythm: regular rhythm Heart sounds: S1 normal heart sound present and S2 normal heart sound present : General: Yes deferred Skin: Rashes: no rashes Wounds: no wounds Neuro: General: oriented to person, oriented to place, patient oriented x3, CN's II-XI intact bilaterally and Unable to assess gait Cranial nerves: Yes CN's II-XII intact bilaterally and Yes Equal, round and reactive pupils present Cognition (Neuro): normal cognition Speech: normal speech Gait exam (Neuro): Normal gait present and Unable to assess gait Motor exam (neuro): 5/5 motor strength present throughout Other: Functional quadriplegia Extrem: General: normal to inspection, full ROM, no joint enlargement, no pedal edema and edema ( dependent edema) bilateral Objective Data Vital Signs Vital Signs: Vital Signs - 24 hr 02/11/24 14:00 02/11/24 15:31 02/11/24 20:25 Temperature 98.6 F Pulse Rate 77 76 82 Respiratory Rate 20 Blood Pressure 100/58 L Pulse Oximetry 100 Oxygen Delivery Oxygen Flow Rate 02/11/24 20:00 02/11/24 23:54 02/11/24 20:00 Temperature 97.3 F L 97.6 F Pulse Rate 76 74 Respiratory Rate 16 16 Blood Pressure 109/67 110/70 Pulse Oximetry 99 99 99 Oxygen Delivery Nasal Cannula Oxygen Flow Rate 3 02/12/24 04:00 02/12/24 08:00 02/12/24 08:00 Temperature 97.6 F 98.1 F Pulse Rate 80 74 Respiratory Rate 18 18 Blood Pressure 112/70 154/79 H Pulse Oximetry 100 94 96 Oxygen Delivery Nasal Cannula Oxygen Flow Rate 3 02/12/24 12:10 Temperature 97 F L Pulse Rate 75 Respiratory Rate 18 Blood Pressure 112/74 Pulse Oximetry 100 Oxygen Delivery Nasal Cannula Oxygen Flow Rate 3 Intake/Output Intake/Output: Intake & Output 02/09/24 02/10/24 02/11/24 02/12/24 23:59 23:59 23:59 23:59 Intake Total 1000 2890 1590 2100 Balance 1000 2890 1590 2100 Meds/Results Medications: Active Medications Generic Name Dose Route Start Last Admin Trade Name Freq PRN Reason Stop Dose Admin Acetaminophen 650 mg 02/10/24 01:21 Acetaminophen 325 Mg Tablet PO Q4H PRN Mild Pain (1-3) or Fever Acetaminophen 650 mg 02/10/24 09:00 02/12/24 08:24 Acetaminophen 325 Mg Tablet PO 03/11/24 08:59 650 mg TID NICOLE Administration Al Hydrox/Mg Hydrox/Simethicone 5 ml 02/10/24 03:33 Mag Hydrox/Al Hydrox/Simeth 30 Ml Udc PO Q6H PRN Heartburn Albuterol 2 puff 02/10/24 03:33 Albuterol Sulfate (*Sp) Aerosol 1 Puff INHALATION Q4H PRN S.O.B Albuterol/Ipratropium 3 ml 02/10/24 03:33 Ipratropium 0.5 Mg/Albuterol Sulfate 2.5 Mg Ampul.Neb 3 Ml INHALATION Q6HRT PRN sob/wheezing Amiodarone HCl 200 mg 02/10/24 09:00 02/12/24 08:24 Amiodarone Hcl 200 Mg Tablet PO 200 mg Q12HR NICOLE Administration Buspirone HCl 10 mg 02/10/24 09:00 02/12/24 08:25 Buspirone Hcl 10 Mg Tablet PO 10 mg TID NICOLE Administration Calcium Carbonate 400 mg 02/10/24 03:33 Calcium Carbonate (Tums) 500 Mg (200 Mg Elemental) PO Q8H PRN Heartburn Escitalopram Oxalate 20 mg 02/10/24 09:00 02/12/24 08:25 Escitalopram Oxalate 10 Mg Tablet PO 20 mg DAILY NICOLE Administration Ferrous Sulfate 325 mg 02/10/24 09:00 02/12/24 08:25 Ferrous Sulfate [address] PO 03/11/24 08:59 325 mg DAILY NICOLE Administration Gabapentin 600 mg 02/10/24 09:00 02/12/24 08:24 Gabapentin 300 Mg Capsule PO 600 mg TID NICOLE Administration Guaifenesin 600 mg 02/10/24 09:00 02/12/24 08:25 Guaifenesin 12 Hr 600 Mg Tabcr PO 600 mg Q12HR NICOLE Administration Lactated Ringer's 1,000 mls @ 150 mls/hr 02/12/24 12:10 Lr - Lactated Ringers Iv IV CONT .Q6H40M [facility] Insulin Aspart 5 units 02/10/24 08:00 02/12/24 13:06 Insulin Aspart (*Bkc) 100 Units/Ml 0.05 units/kg (5 units) Not Given SUB-Q TIDWM NICOLE Magnesium Hydroxide 30 ml 02/10/24 03:33 Magnesium Hydroxide Susp 30 Ml Udc PO DAILY PRN Constipation Memantine 10 mg 02/10/24 09:00 02/12/24 08:25 Memantine 10 Mg Tablet PO 10 mg Q12HR NICOLE Administration Ondansetron HCl 4 mg 02/10/24 01:21 Ondansetron Inj 4 Mg/2 Ml Vial IV PUSH Q4H PRN Nausea Pantoprazole Sodium 40 mg 02/10/24 21:00 02/12/24 08:23 Pantoprazole Sodium Iv 40 Mg Vial IV PUSH 40 mg Q12HR NICOLE Administration Perflutren Lipid Microsphere 0 ml 02/10/24 08:54 Perflutren Lipid Microspheres 1.5 Ml Vial Diluted To 10 Ml Total Volume IV PUSH 02/13/24 08:55 ONCE PRN adequate visualization Protocol Primidone 50 mg 02/10/24 09:00 02/12/24 08:25 Primidone 50 Mg Tablet PO 50 mg Q12HR NICOLE Administration Ropinirole HCl 0.5 mg 02/10/24 21:00 02/11/24 20:25 Ropinirole Hcl 0.5 Mg Tablet PO 0.5 mg QHS NICOLE Administration Simethicone 0.6 ml 02/12/24 13:09 02/12/24 13:10 Simethicone Oral Suspension 20 Mg/0.3 Ml 30 Ml Bottle PO 0.6 ml ONCE PRN Administration Gas Discomfort Tamoxifen Citrate 20 mg 02/10/24 09:00 02/12/24 08:24 Tamoxifen Citrate (*Chemo) 10 Mg Tablet PO 03/11/24 08:59 20 mg DAILY NICOLE Administration Radiology Results: ITS Impressions Head CT 02/09/24 23:17 IMPRESSION: 1. Normal aging brain. No acute intracranial process. 2. Bilateral otomastoiditis effusions. Chest/Abdomen CTA 02/09/24 23:21 IMPRESSION: 1. Normal caliber aorta with no aneurysm or dissection. No other acute intrathoracic or abdominal process. 2. Moderate emphysema with large bulla occupying a significant portion of the anterior left mid and upper hemithorax. 3. Unchanged small pericardial effusion. 4. Cirrhosis minimal ascites. 5. Cholelithiasis. Chest X-Ray 02/09/24 23:34 IMPRESSION: 1. Emphysema. Venous Doppler Study 02/11/24 10:06 IMPRESSION: Negative right upper extremity venous US. No deep vein thrombosis. Labs Labs: Laboratory Results - last 24 hr 02/10/24 02/11/24 02/11/24 16:33 16:11 19:43 WBC RBC Hgb Hct MCV MCH MCHC RDW Plt Count MPV Haptoglobin 59 Sodium Potassium Chloride Carbon Dioxide Anion Gap BUN Creatinine Estim Creat Clear Calc Estimated GFR Glucose POC Capillary Glucose 107 H 148 H Calcium Total Bilirubin AST ALT Alkaline Phosphatase Total Protein Albumin 02/12/24 02/12/24 02/12/24 06:36 07:35 11:40 WBC 6.8 RBC 3.78 L Hgb 10.7 L Hct 36.9 L MCV 97.6 MCH 28.3 MCHC 29.0 L RDW 16.0 H Plt Count 190 MPV 10.2 Haptoglobin Sodium 138 Potassium 3.1 L Chloride 105 Carbon Dioxide 26 Anion Gap 7 BUN 6 L D Creatinine 0.60 L Estim Creat Clear Calc 87 Estimated GFR > 60 Glucose 118 H POC Capillary Glucose 135 H 153 H Calcium 8.2 L Total Bilirubin 0.5 AST 41 H ALT 29 Alkaline Phosphatase 64 Total Protein 6.0 L Albumin 3.3 L 02/12/24 12:01 WBC RBC Hgb Hct MCV MCH MCHC RDW Plt Count MPV Haptoglobin Sodium Potassium Chloride Carbon Dioxide Anion Gap BUN Creatinine Estim Creat Clear Calc Estimated GFR Glucose POC Capillary Glucose 134 H Calcium Total Bilirubin AST ALT Alkaline Phosphatase Total Protein Albumin Hospitalist MIPS Advance Care Plan I have confirmed that the patient's Advanced Care Plan is present, code status is documented, or surrogate decision maker is listed in patient medical record.: Yes Medication Reconciliation I have utilized all available resources to obtain, update and review the patients current medications (includes all prescriptions, OTC, herbals, cannabis, and nutritional supplements).: Yes
[2024-02-12] MEDS: LACTATED RINGERS 1,000 ML 150 ML IV CONT (13:43)
[2024-02-12 13:56] LABS: Glucose Point of Care 146 mg/dl (65-105)
--- NOTE | 2024-02-12 14:15 | PC.NURSE ---
Returned to room per stretcher from GI Lab.
[2024-02-12 16:31] LABS: Glucose Point of Care 175 mg/dl (65-105)
[2024-02-12 18:53] LABS: Alpha Fetoprotein Tumor Marker 5.9 ng/mL
[2024-02-12 20:01] LABS: Glucose Point of Care 182 mg/dl (65-105)
[2024-02-12] MEDS: rOPINIRole HCL 0.5 MG TABLET PO (20:11)
[2024-02-13] VITALS (11 sets, daily range): BP systolic 110–143; BP diastolic 68–85; PULSE 70–85; RESP 16–24; TEMP 36.2–36.8; O2SAT 93–100
[2024-02-13] MEDS: ACETAMINOPHEN 325 MG TABLET 650 MG PO ×2 (00:34→09:51)
[2024-02-13 06:09] LABS: Hematocrit 35.6 % (37.0-47.0); Hemoglobin 10.6 g/dL (12.0-15.0); Mean Corpuscular HGB Conc 29.8 g/dl (32-36); Mean Corpuscular Hemoglobin 29.1 pg (26-34); Mean Corpuscular Volume 97.8 fl (80-100); Platelet Count Result 179 k/mm3 (150-375); Red Blood Count 3.64 M/mm3 (4.2-5.4); White Blood Count 6.1 K/mm3 (4.5-10.0)
[2024-02-13 06:21] LABS: Alanine Aminotransferase 28 U/L (6-35); Albumin Level 3.2 g/dL (3.5-5.1); Alkaline Phosphatase 90 U/L (38-126); Anion Gap 5 mmol/L (4-12); Aspartate Amino Transferase 34 U/L (14-36); Bilirubin,Total 0.4 mg/dL (0.2-1.3); Blood Urea Nitrogen 7 mg/dL (7-17); Calcium 7.5 mg/dL (8.4-10.2); Carbon Dioxide 32 mmol/L (22-30); Chloride 108 mmol/L (98-107); Estimated CRCL calculation 87 ml/min; Estimated Glomerular Filt Rate > 60; Glucose 163 mg/dL (65-110); Potassium 3.5 mmol/L (3.4-5.0); Sodium 145 mmol/L (137-145)
[2024-02-13 07:51] LABS: Glucose Point of Care 148 mg/dl (65-105)
--- NOTE | 2024-02-13 09:04 | WPDANESPN ---
Anes - Prog Note Post-Op Date/Time: 02/13/24 09:04 Cardiovascular status: normal Respiratory status: normal Airway patency: baseline Mental status: baseline Post-Op hydration status: normal Vital Signs: Last Vital Signs Temp 36.4 C 02/13/24 08:00 Pulse 79 02/13/24 08:00 Resp 16 02/13/24 08:00 BP 129/70 02/13/24 08:00 Pulse Ox 100 02/13/24 08:00 O2 Del Method Nasal Cannula 02/13/24 07:50 O2 Flow Rate 3 02/13/24 07:50 FiO2 32 02/13/24 07:50 Pain Score (VAS): Patient asleep, no nonverbal signs of pain present at this time. I/O: Intake & Output 02/12/24 02/13/24 02/13/24 23:59 07:59 15:59 Intake Total 1580 200 Output Total 400 850 Balance 1180 -650 Laboratory Tests 02/13/24 06:02 02/13/24 06:02 02/09/24 02/12/24 02/12/24 21:46 11:40 12:01 WBC RBC Hgb Hct MCV MCH MCHC RDW Plt Count MPV Sodium Potassium Chloride Carbon Dioxide Anion Gap BUN Creatinine Estim Creat Clear Calc Estimated GFR Glucose POC Capillary Glucose 153 H 134 H Calcium Total Bilirubin AST ALT Alkaline Phosphatase Total Protein Albumin Alpha Fetoprotein 5.9 02/12/24 02/12/24 02/12/24 13:54 16:23 19:36 WBC RBC Hgb Hct MCV MCH MCHC RDW Plt Count MPV Sodium Potassium Chloride Carbon Dioxide Anion Gap BUN Creatinine Estim Creat Clear Calc Estimated GFR Glucose POC Capillary Glucose 146 H 175 H 182 H Calcium Total Bilirubin AST ALT Alkaline Phosphatase Total Protein Albumin Alpha Fetoprotein 02/13/24 02/13/24 06:02 07:45 WBC 6.1 RBC 3.64 L Hgb 10.6 L Hct 35.6 L MCV 97.8 MCH 29.1 MCHC 29.8 L RDW 16.0 H Plt Count 179 MPV 10.0 Sodium 145 Potassium 3.5 Chloride 108 H Carbon Dioxide 32 H Anion Gap 5 BUN 7 Creatinine 0.60 L Estim Creat Clear Calc 87 Estimated GFR > 60 Glucose 163 H POC Capillary Glucose 148 H Calcium 7.5 L Total Bilirubin 0.4 AST 34 ALT 28 Alkaline Phosphatase 90 Total Protein 6.0 L Albumin 3.2 L Alpha Fetoprotein Post-procedural complaints: none Patient Feedback: Patient satisfied with anesthetic care.
[2024-02-13] MEDS: TAMOXIFEN CITRATE (*CHEMO) 10 MG TABLET 20 MG PO (09:50)
[2024-02-13] MEDS: LACTULOSE 20 GM/30 ML UDC PO (09:50)
[2024-02-13] MEDS: ESCITALOPRAM OXALATE 10 MG TABLET 20 MG PO (09:50)
[2024-02-13] MEDS: GABAPENTIN 300 MG CAPSULE 600 MG PO (09:51)
[2024-02-13] MEDS: PRIMIDONE 50 MG TABLET PO (09:51)
[2024-02-13] MEDS: guaiFENesin 12 HR 600 MG TABCR PO (09:51)
[2024-02-13] MEDS: MEMANTINE 10 MG TABLET PO (09:51)
[2024-02-13] MEDS: FERROUS SULFATE 325 MG TABLET DR PO (09:51)
[2024-02-13] MEDS: carvediloL 6.25 MG TABLET PO (09:52)
[2024-02-13] MEDS: AMIODARONE HCL 200 MG TABLET PO (09:53)
[2024-02-13] MEDS: busPIRone HCL 10 MG TABLET PO (09:53)
[2024-02-13] MEDS: IPRATROPIUM 0.5 MG/ALBUTEROL SULFATE 2.5 MG AMPUL.NEB 3 ML INHALATION (10:23)
--- NOTE | 2024-02-13 10:36 | P.PNGI_ITS ---
Progress Note: A&P Assessment and Plan (1) Cirrhosis: Code(s): K74.60 - Unspecified cirrhosis of liver Status: Acute Assessment and Plan: Yesterday's endoscopic studies, EGD and colonoscopy showed no signs of active bleeding. There was minimal erosive gastritis and diverticulosis but no cancer or polyps. Her most likely cause of bleeding in the past was diverticulosis. However, there is some endoscopic evidence of early portal hypertension, judged by the presence of mild portal hypertensive gastropathy. therefore, carvedilol 6.25 mg daily should be prescribed to the patient to prevent further complications of her underlying cirrhosis. On the other hand, her intermittent hallucination and somnolence episodes might be due to some degree of hepatic encephalopathy. In that respect,lactulose between 30 g once or twice a day is recommended titrated to 2-3 soft bowel movements per day (not diarrheal). From my standpoint, since she is hemodynamically stable and not bleeding , the patient can be discharged back to her shelter with the above-mentioned medications today. (2) Normocytic anemia: Code(s): D64.9 - Anemia, unspecified Status: Acute (3) Heme positive stool: Code(s): R19.5 - Other fecal abnormalities Status: Acute Subjective Date/time seen: 02/13/24 10:36 Interval history: The patient feels well today, is awake, alert and has not had any rectal bleeding or melena. There is no abdominal pain or fever. Exam Const: General: cooperative and healthy appearing Resp: Effort & Inspection: normal respiratory effort and able to speak in complete sentences Auscultation: clear to auscultation bilaterally Cardio: Rate: regular rate Rhythm: regular rhythm GI: Inspection: normal to inspection GI Palp: No No hepatosplenomegaly present Auscultation: normal bowel sounds Rectal Exam: deferred Skin: General skin exam: normal color Psych: Appearance: grossly normal Mental Status: mental status grossly normal Objective Data Vital Signs Vital Signs: Vital Signs - 24 hr 02/12/24 12:10 02/12/24 13:44 02/12/24 13:54 Temperature 97 F L Pulse Rate 75 82 76 Respiratory Rate 18 17 18 Blood Pressure 112/74 112/74 123/75 Pulse Oximetry 100 96 97 Oxygen Delivery Nasal Cannula Nasal Cannula Nasal Cannula Oxygen Flow Rate 3 3 3 Fraction of Inspired Oxygen 02/12/24 14:04 02/12/24 12:00 02/12/24 15:50 Temperature 98.1 F 98.1 F Pulse Rate 73 64 68 Respiratory Rate 20 18 18 Blood Pressure 129/81 101/45 L 109/47 L Pulse Oximetry 97 100 100 Oxygen Delivery Nasal Cannula Oxygen Flow Rate 3 Fraction of Inspired Oxygen 02/12/24 20:00 02/12/24 20:11 02/12/24 20:00 Temperature 98.5 F Pulse Rate 82 82 Respiratory Rate 18 Blood Pressure 101/63 Pulse Oximetry 98 98 Oxygen Delivery Nasal Cannula Oxygen Flow Rate 3 Fraction of Inspired Oxygen 02/13/24 00:00 02/13/24 05:36 02/13/24 07:50 Temperature 97.4 F L 97.2 F L Pulse Rate 78 79 Respiratory Rate 20 18 Blood Pressure 124/77 143/85 H Pulse Oximetry 99 99 97 Oxygen Delivery Nasal Cannula Oxygen Flow Rate 3 Fraction of Inspired Oxygen 32 02/13/24 08:00 02/13/24 09:52 02/13/24 09:53 Temperature 97.6 F Pulse Rate 79 72 72 Respiratory Rate 16 Blood Pressure 129/70 Pulse Oximetry 100 Oxygen Delivery Oxygen Flow Rate Fraction of Inspired Oxygen 02/13/24 10:23 02/13/24 10:32 Temperature Pulse Rate 79 81 Respiratory Rate 18 18 Blood Pressure Pulse Oximetry Oxygen Delivery Oxygen Flow Rate Fraction of Inspired Oxygen Intake/Output Intake/Output: Intake & Output 02/10/24 02/11/24 02/12/24 02/13/24 23:59 23:59 23:59 23:59 Intake Total 2890 1590 4260 200 Output Total 400 850 Balance 2890 1590 3860 -650 Meds/Results Medications: Active Medications Generic Name Dose Route Start Last Admin Trade Name Freq PRN Reason Stop Dose Admin Acetaminophen 650 mg 02/10/24 01:21 02/13/24 00:34 Acetaminophen 325 Mg Tablet PO 650 mg Q4H PRN Administration Mild Pain (1-3) or Fever Acetaminophen 650 mg 02/10/24 09:00 02/13/24 09:51 Acetaminophen 325 Mg Tablet PO 03/11/24 08:59 650 mg TID NICOLE Administration Al Hydrox/Mg Hydrox/Simethicone 5 ml 02/10/24 03:33 Mag Hydrox/Al Hydrox/Simeth 30 Ml Udc PO Q6H PRN Heartburn Albuterol 2 puff 02/10/24 03:33 Albuterol Sulfate (*Sp) Aerosol 1 Puff INHALATION Q4H PRN S.O.B Albuterol/Ipratropium 3 ml 02/10/24 03:33 02/13/24 10:23 Ipratropium 0.5 Mg/Albuterol Sulfate 2.5 Mg Ampul.Neb 3 Ml INHALATION 3 ml Q6HRT PRN Administration sob/wheezing Amiodarone HCl 200 mg 02/10/24 09:00 02/13/24 09:53 Amiodarone Hcl 200 Mg Tablet PO 200 mg Q12HR NICOLE Administration Buspirone HCl 10 mg 02/10/24 09:00 02/13/24 09:53 Buspirone Hcl 10 Mg Tablet PO 10 mg TID NICOLE Administration Calcium Carbonate 400 mg 02/10/24 03:33 Calcium Carbonate (Tums) 500 Mg (200 Mg Elemental) PO Q8H PRN Heartburn Carvedilol 6.25 mg 02/13/24 09:00 02/13/24 09:52 Carvedilol 6.25 Mg Tablet PO 6.25 mg DAILY NICOLE Administration Escitalopram Oxalate 20 mg 02/10/24 09:00 02/13/24 09:50 Escitalopram Oxalate 10 Mg Tablet PO 20 mg DAILY NICOLE Administration Ferrous Sulfate 325 mg 02/10/24 09:00 02/13/24 09:51 Ferrous Sulfate [address] PO 03/11/24 08:59 325 mg DAILY NICOLE Administration Gabapentin 600 mg 02/10/24 09:00 02/13/24 09:51 Gabapentin 300 Mg Capsule PO 600 mg TID NICOLE Administration Guaifenesin 600 mg 02/10/24 09:00 02/13/24 09:51 Guaifenesin 12 Hr 600 Mg Tabcr PO 600 mg Q12HR NICOLE Administration Insulin Aspart 5 units 02/10/24 08:00 02/13/24 08:18 Insulin Aspart (*Bkc) 100 Units/Ml 0.05 units/kg (5 units) Not Given SUB-Q TIDWM NICOLE Lactulose 20 gm 02/13/24 09:00 02/13/24 09:50 Lactulose 20 Gm/30 Ml Udc PO 20 gm QAM NICOLE Administration Magnesium Hydroxide 30 ml 02/10/24 03:33 Magnesium Hydroxide Susp 30 Ml Udc PO DAILY PRN Constipation Memantine 10 mg 02/10/24 09:00 02/13/24 09:51 Memantine 10 Mg Tablet PO 10 mg Q12HR NICOLE Administration Ondansetron HCl 4 mg 02/10/24 01:21 Ondansetron Inj 4 Mg/2 Ml Vial IV PUSH Q4H PRN Nausea Primidone 50 mg 02/10/24 09:00 02/13/24 09:51 Primidone 50 Mg Tablet PO 50 mg Q12HR NICOLE Administration Ropinirole HCl 0.5 mg 02/10/24 21:00 02/12/24 20:11 Ropinirole Hcl 0.5 Mg Tablet PO 0.5 mg QHS NICOLE Administration Simethicone 0.6 ml 02/12/24 13:09 02/12/24 13:10 Simethicone Oral Suspension 20 Mg/0.3 Ml 30 Ml Bottle PO 0.6 ml ONCE PRN Administration Gas Discomfort Tamoxifen Citrate 20 mg 02/10/24 09:00 02/13/24 09:50 Tamoxifen Citrate (*Chemo) 10 Mg Tablet PO 03/11/24 08:59 20 mg DAILY NICOLE Administration Radiology Results: ITS Impressions Head CT 02/09/24 23:17 IMPRESSION: 1. Normal aging brain. No acute intracranial process. 2. Bilateral otomastoiditis effusions. Chest/Abdomen CTA 02/09/24 23:21 IMPRESSION: 1. Normal caliber aorta with no aneurysm or dissection. No other acute intrathoracic or abdominal process. 2. Moderate emphysema with large bulla occupying a significant portion of the anterior left mid and upper hemithorax. 3. Unchanged small pericardial effusion. 4. Cirrhosis minimal ascites. 5. Cholelithiasis. Chest X-Ray 02/09/24 23:34 IMPRESSION: 1. Emphysema. Venous Doppler Study 02/11/24 10:06 IMPRESSION: Negative right upper extremity venous US. No deep vein thrombosis. Labs Labs: Laboratory Results - last 24 hr 02/09/24 02/12/24 02/12/24 21:46 11:40 12:01 WBC RBC Hgb Hct MCV MCH MCHC RDW Plt Count MPV Sodium Potassium Chloride Carbon Dioxide Anion Gap BUN Creatinine Estim Creat Clear Calc Estimated GFR Glucose POC Capillary Glucose 153 H 134 H Calcium Total Bilirubin AST ALT Alkaline Phosphatase Total Protein Albumin Alpha Fetoprotein 5.9 02/12/24 02/12/24 02/12/24 13:54 16:23 19:36 WBC RBC Hgb Hct MCV MCH MCHC RDW Plt Count MPV Sodium Potassium Chloride Carbon Dioxide Anion Gap BUN Creatinine Estim Creat Clear Calc Estimated GFR Glucose POC Capillary Glucose 146 H 175 H 182 H Calcium Total Bilirubin AST ALT Alkaline Phosphatase Total Protein Albumin Alpha Fetoprotein 02/13/24 02/13/24 06:02 07:45 WBC 6.1 RBC 3.64 L Hgb 10.6 L Hct 35.6 L MCV 97.8 MCH 29.1 MCHC 29.8 L RDW 16.0 H Plt Count 179 MPV 10.0 Sodium 145 Potassium 3.5 Chloride 108 H Carbon Dioxide 32 H Anion Gap 5 BUN 7 Creatinine 0.60 L Estim Creat Clear Calc 87 Estimated GFR > 60 Glucose 163 H POC Capillary Glucose 148 H Calcium 7.5 L Total Bilirubin 0.4 AST 34 ALT 28 Alkaline Phosphatase 90 Total Protein 6.0 L Albumin 3.2 L Alpha Fetoprotein
--- NOTE | 2024-02-13 10:43 | ECG_ITS ---
Test Date: 2024-02-13 10:53:33 Measurements Intervals [place] Rate: 82 P: 0 AL: 0 QRS: -1 QRSD: 94 T: 81 QT: 387 QTc: 455 Interpretive Statements PROBABLY SINUS RHYTHM BASELINE ARTIFACT LIMITS INTERPRETATION NONSPECIFIC ST & T-WAVE ABNORMALITY ABNORMAL ECG Electronically Signed On 02-13-2024 13:17:22 CDT by Raghav Interiano M.D.
--- NOTE | 2024-02-13 11:09 | P.PNIM_ITS ---
Progress Note: A&P Assessment and Plan (1) Acute GI bleeding: Code(s): K92.2 - Gastrointestinal hemorrhage, unspecified Status: Acute Assessment and Plan: Patient came from [facility] skilled nursing. Chart review indicates patient has episodes of hallucination in the skilled nursing. Patient is on 3 L oxygen baseline due to COPD. ED workup shows CTA, head CT, chest x-ray and urinalysis shows no significant findings. Patient had episodes of hypotension and hyperthermia. Patient started on IV fluids. Not able to identify the source of infection but hypotension believed to be due to the down trending of hemoglobin. In regards to cirrhosis she was already worked up in the past and is HBsAg and anti HCV negative. Her most likely cause of cirrhosis is her underlying type 2 diabetes and morbid obesity. Stool guaiac is positive and GI is consulted. EGD and colonoscopy without active bleeding but with gastritis and diverticulosis with the latter being the most likely source of recent bleeding. H/H remained stable. 02/12 Hgb 10.6 g/dL (2) Atrial fibrillation: Code(s): I48.91 - Unspecified atrial fibrillation Status: Acute Assessment and Plan: rate controlled Resume anticoagulation upon discharge (3) AMS (altered mental status): Code(s): R41.82 - Altered mental status, unspecified Status: Acute Assessment and Plan: CT head w/o acute process Per hx is at baseline mental status (4) Abdominal pain: Qualifiers: Abdominal location: generalized Qualified Code(s): R10.84 - Generalized abdominal pain Code(s): R10.9 - Unspecified abdominal pain Status: Acute Assessment and Plan: CT abdomen and pelvis without acute findings (5) Diabetes: Qualifiers: Diabetes mellitus type: type 2 Diabetes mellitus halfway insulin use: without marine oil terminal superintendent use Diabetes mellitus complication status: without complication Qualified Code(s): E11.9 - Type 2 diabetes mellitus without complications Code(s): E11.9 - Type 2 diabetes mellitus without complications Status: Acute Assessment and Plan: Resume metformin upon discharge 02/12 FBS 163 (6) Hypotension: Qualifiers: Hypotension type: unspecified hypotension type Qualified Code(s): I95.9 - Hypotension, unspecified Code(s): I95.9 - Hypotension, unspecified Status: Acute Assessment and Plan: Resolved (7) Hallucinations: Code(s): R44.3 - Hallucinations, unspecified Status: Acute Assessment and Plan: patient is on multiple psychotropic holding aripiprazole holding trazodone holding Ativan holding tramadol Resume home regimen upon discharge (8) COPD (chronic obstructive pulmonary disease): Code(s): J44.9 - Chronic obstructive pulmonary disease, unspecified Status: Acute (9) Chest pain: Code(s): R07.9 - Chest pain, unspecified Status: Acute Assessment and Plan: Clinically chest wall pain EKG reviewed 02/12 with regular rhythm and no acute ischemic changes. (10) Cirrhosis: Code(s): K74.60 - Unspecified cirrhosis of liver Status: Acute Assessment and Plan: Likely due to fatty liver Subjective Date/time seen: 02/13/24 11:09 Interval history: C/o mild to moderate, sharp, continuous chest pain this AM. Right parasternal. Tolerated diet. Not worse with eating. Some nausea. Some sob. Denied pain elsewhere. Review of Systems Review of Systems: All systems reviewed & are unremarkable except as noted in HPI and below Exam Narrative: HEENT: EOMI, sclerae nonicteric, pharyngeal mucosa pink and intact NECK: No JVD, adenopathy, or thyromegaly CHEST: Clear to auscultation. Normal effort. HEART: NL S1/S2, regular, no murmur ABDOMEN: BS+, soft, nontender, no mass, no bruits EXTREMITIES: No cyanosis, edema, or clubbing NEUROLOGIC: CN intact and symmetric to inspection. LUE contracture, bilateral foot drop, diffuse tremors. MUSCULOSKELETAL: Without gross deformity. VERY TENDER RIGHT MID COSTOCHONDRAL JOINTS PSYCH: Alert. Anxious. Pleasant. Cooperative. Objective Data Vital Signs Vital Signs: Vital Signs - 24 hr 02/12/24 12:10 02/12/24 13:44 02/12/24 13:54 Temperature 97 F L Pulse Rate 75 82 76 Respiratory Rate 18 17 18 Blood Pressure 112/74 112/74 123/75 Pulse Oximetry 100 96 97 Oxygen Delivery Nasal Cannula Nasal Cannula Nasal Cannula Oxygen Flow Rate 3 3 3 Fraction of Inspired Oxygen 02/12/24 14:04 02/12/24 12:00 02/12/24 15:50 Temperature 98.1 F 98.1 F Pulse Rate 73 64 68 Respiratory Rate 20 18 18 Blood Pressure 129/81 101/45 L 109/47 L Pulse Oximetry 97 100 100 Oxygen Delivery Nasal Cannula Oxygen Flow Rate 3 Fraction of Inspired Oxygen 02/12/24 20:00 02/12/24 20:11 02/12/24 20:00 Temperature 98.5 F Pulse Rate 82 82 Respiratory Rate 18 Blood Pressure 101/63 Pulse Oximetry 98 98 Oxygen Delivery Nasal Cannula Oxygen Flow Rate 3 Fraction of Inspired Oxygen 02/13/24 00:00 02/13/24 05:36 02/13/24 07:50 Temperature 97.4 F L 97.2 F L Pulse Rate 78 79 Respiratory Rate 20 18 Blood Pressure 124/77 143/85 H Pulse Oximetry 99 99 97 Oxygen Delivery Nasal Cannula Oxygen Flow Rate 3 Fraction of Inspired Oxygen 32 02/13/24 08:00 02/13/24 09:52 02/13/24 09:53 Temperature 97.6 F Pulse Rate 79 72 72 Respiratory Rate 16 Blood Pressure 129/70 Pulse Oximetry 100 Oxygen Delivery Oxygen Flow Rate Fraction of Inspired Oxygen 02/13/24 10:23 02/13/24 10:32 02/13/24 10:40 Temperature Pulse Rate 79 81 85 Respiratory Rate 18 18 24 H Blood Pressure 122/68 Pulse Oximetry 97 Oxygen Delivery Oxygen Flow Rate Fraction of Inspired Oxygen Intake/Output Intake/Output: Intake & Output 02/10/24 02/11/24 02/12/24 02/13/24 23:59 23:59 23:59 23:59 Intake Total 2890 1590 4260 200 Output Total 400 850 Balance 2890 1590 3860 -650 Meds/Results Medications: Active Medications Generic Name Dose Route Start Last Admin Trade Name Freq PRN Reason Stop Dose Admin Acetaminophen 650 mg 02/10/24 01:21 02/13/24 00:34 Acetaminophen 325 Mg Tablet PO 650 mg Q4H PRN Administration Mild Pain (1-3) or Fever Acetaminophen 650 mg 02/10/24 09:00 02/13/24 09:51 Acetaminophen 325 Mg Tablet PO 03/11/24 08:59 650 mg TID NICOLE Administration Al Hydrox/Mg Hydrox/Simethicone 5 ml 02/10/24 03:33 Mag Hydrox/Al Hydrox/Simeth 30 Ml Udc PO Q6H PRN Heartburn Albuterol 2 puff 02/10/24 03:33 Albuterol Sulfate (*Sp) Aerosol 1 Puff INHALATION Q4H PRN S.O.B Albuterol/Ipratropium 3 ml 02/10/24 03:33 02/13/24 10:23 Ipratropium 0.5 Mg/Albuterol Sulfate 2.5 Mg Ampul.Neb 3 Ml INHALATION 3 ml Q6HRT PRN Administration sob/wheezing Amiodarone HCl 200 mg 02/10/24 09:00 02/13/24 09:53 Amiodarone Hcl 200 Mg Tablet PO 200 mg Q12HR NICOLE Administration Buspirone HCl 10 mg 02/10/24 09:00 02/13/24 09:53 Buspirone Hcl 10 Mg Tablet PO 10 mg TID NICOLE Administration Calcium Carbonate 400 mg 02/10/24 03:33 Calcium Carbonate (Tums) 500 Mg (200 Mg Elemental) PO Q8H PRN Heartburn Carvedilol 6.25 mg 02/13/24 09:00 02/13/24 09:52 Carvedilol 6.25 Mg Tablet PO 6.25 mg DAILY NICOLE Administration Escitalopram Oxalate 20 mg 02/10/24 09:00 02/13/24 09:50 Escitalopram Oxalate 10 Mg Tablet PO 20 mg DAILY NICOLE Administration Ferrous Sulfate 325 mg 02/10/24 09:00 02/13/24 09:51 Ferrous Sulfate [address] PO 03/11/24 08:59 325 mg DAILY NICOLE Administration Gabapentin 600 mg 02/10/24 09:00 02/13/24 09:51 Gabapentin 300 Mg Capsule PO 600 mg TID NICOLE Administration Guaifenesin 600 mg 02/10/24 09:00 02/13/24 09:51 Guaifenesin 12 Hr 600 Mg Tabcr PO 600 mg Q12HR NICOLE Administration Insulin Aspart 5 units 02/10/24 08:00 02/13/24 08:18 Insulin Aspart (*Bkc) 100 Units/Ml 0.05 units/kg (5 units) Not Given SUB-Q TIDWM NICOLE Lactulose 20 gm 02/13/24 09:00 02/13/24 09:50 Lactulose 20 Gm/30 Ml Udc PO 20 gm QAM NICOLE Administration Magnesium Hydroxide 30 ml 02/10/24 03:33 Magnesium Hydroxide Susp 30 Ml Udc PO DAILY PRN Constipation Memantine 10 mg 02/10/24 09:00 02/13/24 09:51 Memantine 10 Mg Tablet PO 10 mg Q12HR NICOLE Administration Ondansetron HCl 4 mg 02/10/24 01:21 Ondansetron Inj 4 Mg/2 Ml Vial IV PUSH Q4H PRN Nausea Primidone 50 mg 02/10/24 09:00 02/13/24 09:51 Primidone 50 Mg Tablet PO 50 mg Q12HR NICOLE Administration Ropinirole HCl 0.5 mg 02/10/24 21:00 02/12/24 20:11 Ropinirole Hcl 0.5 Mg Tablet PO 0.5 mg QHS NICOLE Administration Simethicone 0.6 ml 02/12/24 13:09 02/12/24 13:10 Simethicone Oral Suspension 20 Mg/0.3 Ml 30 Ml Bottle PO 0.6 ml ONCE PRN Administration Gas Discomfort Tamoxifen Citrate 20 mg 02/10/24 09:00 02/13/24 09:50 Tamoxifen Citrate (*Chemo) 10 Mg Tablet PO 03/11/24 08:59 20 mg DAILY NICOLE Administration Radiology Results: ITS Impressions Head CT 02/09/24 23:17 IMPRESSION: 1. Normal aging brain. No acute intracranial process. 2. Bilateral otomastoiditis effusions. Chest/Abdomen CTA 02/09/24 23:21 IMPRESSION: 1. Normal caliber aorta with no aneurysm or dissection. No other acute intrathoracic or abdominal process. 2. Moderate emphysema with large bulla occupying a significant portion of the anterior left mid and upper hemithorax. 3. Unchanged small pericardial effusion. 4. Cirrhosis minimal ascites. 5. Cholelithiasis. Chest X-Ray 02/09/24 23:34 IMPRESSION: 1. Emphysema. Venous Doppler Study 02/11/24 10:06 IMPRESSION: Negative right upper extremity venous US. No deep vein thrombosis. Labs Labs: Laboratory Results - last 24 hr 02/09/24 02/12/24 02/12/24 21:46 11:40 12:01 WBC RBC Hgb Hct MCV MCH MCHC RDW Plt Count MPV Sodium Potassium Chloride Carbon Dioxide Anion Gap BUN Creatinine Estim Creat Clear Calc Estimated GFR Glucose POC Capillary Glucose 153 H 134 H Calcium Total Bilirubin AST ALT Alkaline Phosphatase Total Protein Albumin Alpha Fetoprotein 5.9 02/12/24 02/12/24 02/12/24 13:54 16:23 19:36 WBC RBC Hgb Hct MCV MCH MCHC RDW Plt Count MPV Sodium Potassium Chloride Carbon Dioxide Anion Gap BUN Creatinine Estim Creat Clear Calc Estimated GFR Glucose POC Capillary Glucose 146 H 175 H 182 H Calcium Total Bilirubin AST ALT Alkaline Phosphatase Total Protein Albumin Alpha Fetoprotein 02/13/24 02/13/24 06:02 07:45 WBC 6.1 RBC 3.64 L Hgb 10.6 L Hct 35.6 L MCV 97.8 MCH 29.1 MCHC 29.8 L RDW 16.0 H Plt Count 179 MPV 10.0 Sodium 145 Potassium 3.5 Chloride 108 H Carbon Dioxide 32 H Anion Gap 5 BUN 7 Creatinine 0.60 L Estim Creat Clear Calc 87 Estimated GFR > 60 Glucose 163 H POC Capillary Glucose 148 H Calcium 7.5 L Total Bilirubin 0.4 AST 34 ALT 28 Alkaline Phosphatase 90 Total Protein 6.0 L Albumin 3.2 L Alpha Fetoprotein
--- NOTE | 2024-02-13 11:23 | PM.DS ---
DS: Admitting Diagnosis Discharge Date 02/13/2024 Admitting Diagnosis Acute GI bleed DS: Discharge Diagnosis Discharge Diagnosis (1) Acute GI bleeding: Code(s): K92.2 - Gastrointestinal hemorrhage, unspecified Status: Acute Assessment and Plan: Patient came from [facility]. Chart review indicates patient has episodes of hallucination in the retirement. Patient is on 3 L oxygen baseline due to COPD. ED workup shows CTA, head CT, chest x-ray and urinalysis shows no significant findings. Patient had episodes of hypotension and hyperthermia. Patient started on IV fluids. Not able to identify the source of infection but hypotension believed to be due to the down trending of hemoglobin. In regards to cirrhosis she was already worked up in the past and is HBsAg and anti HCV negative. Her most likely cause of cirrhosis is her underlying type 2 diabetes and morbid obesity. Stool guaiac is positive and GI is consulted. EGD and colonoscopy without active bleeding but with gastritis and diverticulosis with the latter being the most likely source of recent bleeding. H/H remained stable. 02/12 Hgb 10.6 g/dL (2) Atrial fibrillation: Code(s): I48.91 - Unspecified atrial fibrillation Status: Acute Assessment and Plan: rate controlled Resume anticoagulation upon discharge (3) AMS (altered mental status): Code(s): R41.82 - Altered mental status, unspecified Status: Acute Assessment and Plan: CT head w/o acute process Per hx is at baseline mental status (4) Abdominal pain: Qualifiers: Abdominal location: generalized Qualified Code(s): R10.84 - Generalized abdominal pain Code(s): R10.9 - Unspecified abdominal pain Status: Acute Assessment and Plan: CT abdomen and pelvis without acute findings (5) Diabetes: Qualifiers: Diabetes mellitus complication status: without complication Diabetes mellitus superintendent container terminal insulin use: without penitentiary use Diabetes mellitus type: type 2 Qualified Code(s): E11.9 - Type 2 diabetes mellitus without complications Code(s): E11.9 - Type 2 diabetes mellitus without complications Status: Acute Assessment and Plan: Resume metformin upon discharge 02/12 FBS 163 (6) Hypotension: Qualifiers: Hypotension type: unspecified hypotension type Qualified Code(s): I95.9 - Hypotension, unspecified Code(s): I95.9 - Hypotension, unspecified Status: Acute Assessment and Plan: Resolved (7) Hallucinations: Code(s): R44.3 - Hallucinations, unspecified Status: Acute Assessment and Plan: patient is on multiple psychotropic holding aripiprazole holding trazodone holding Ativan holding tramadol Resume home regimen upon discharge (8) COPD (chronic obstructive pulmonary disease): Code(s): J44.9 - Chronic obstructive pulmonary disease, unspecified Status: Acute (9) Chest pain: Code(s): R07.9 - Chest pain, unspecified Status: Acute Assessment and Plan: Clinically chest wall pain EKG reviewed 02/12 with regular rhythm and no acute ischemic changes. (10) Cirrhosis: Code(s): K74.60 - Unspecified cirrhosis of liver Status: Acute Assessment and Plan: Likely due to fatty liver DS: Summary Hospital Course Hospital Course: Patient came from [facility]. Chart review indicates patient has episodes of hallucination in the retirement. Patient is on 3 L oxygen baseline due to COPD. ED workup shows CTA, head CT, chest x-ray and urinalysis shows no significant findings. Patient had episodes of hypotension and hyperthermia. Patient started on IV fluids. Not able to identify the source of infection but hypotension believed to be due to the down trending of hemoglobin. In regards to cirrhosis she was already worked up in the past and is HBsAg and anti HCV negative. Her most likely cause of cirrhosis is her underlying type 2 diabetes and morbid obesity. Stool guaiac is positive and GI is consulted. EGD and colonoscopy without active bleeding but with gastritis and diverticulosis with the latter being the most likely source of recent bleeding. Tolerated diet post procedure. C/o sharp chest pain on day of discharge. Reproduced by palpation of right parasternal region. EKG without ischemic changes. oxygen requirement stable at 3 L (chronic). H/H remained stable. 02/12 Hgb 10.6 g/dL CXR: emphysema CT Abd/Pelvis: IMPRESSION: 1. Normal caliber aorta with no aneurysm or dissection. No other acute intrathoracic or abdominal process. 2. Moderate emphysema with large bulla occupying a significant portion of the anterior left mid and upper hemithorax. 3. Unchanged small pericardial effusion. 4. Cirrhosis minimal ascites. 5. Cholelithiasis. Head CT: IMPRESSION: 1. Normal aging brain. No acute intracranial process. 2. Bilateral otomastoiditis effusions. Time Spent with Patient Time attestation: Total time spent providing and/or coordinating discharge services: Exam Narrative: HEENT: EOMI, sclerae nonicteric, pharyngeal mucosa pink and intact NECK: No JVD, adenopathy, or thyromegaly CHEST: Clear to auscultation. Normal effort. HEART: NL S1/S2, regular, no murmur ABDOMEN: BS+, soft, nontender, no mass, no bruits EXTREMITIES: No cyanosis, edema, or clubbing NEUROLOGIC: CN intact and symmetric to inspection. LUE contracture, bilateral foot drop, diffuse tremors. MUSCULOSKELETAL: Without gross deformity. VERY TENDER RIGHT MID COSTOCHONDRAL JOINTS PSYCH: Alert. Anxious. Pleasant. Cooperative. DS: Data Data Completed and Pending Pending studies at discharge: Pending at discharge 02/12/24 13:29 Surgical [PTH] Routine Surgical [PTH] Routine Labs on day of discharge: Labs from last 24 hours 02/13/24 02/13/24 02/12/24 07:45 06:02 19:36 WBC 6.1 RBC 3.64 L Hgb 10.6 L Hct 35.6 L MCV 97.8 MCH 29.1 MCHC 29.8 L RDW 16.0 H Plt Count 179 MPV 10.0 Sodium 145 Potassium 3.5 Chloride 108 H Carbon Dioxide 32 H Anion Gap 5 BUN 7 Creatinine 0.60 L Estim Creat Clear Calc 87 Estimated GFR > 60 Glucose 163 H POC Capillary Glucose 148 H 182 H Calcium 7.5 L Total Bilirubin 0.4 AST 34 ALT 28 Alkaline Phosphatase 90 Total Protein 6.0 L Albumin 3.2 L Alpha Fetoprotein 02/12/24 02/12/24 02/12/24 16:23 13:54 12:01 WBC RBC Hgb Hct MCV MCH MCHC RDW Plt Count MPV Sodium Potassium Chloride Carbon Dioxide Anion Gap BUN Creatinine Estim Creat Clear Calc Estimated GFR Glucose POC Capillary Glucose 175 H 146 H 134 H Calcium Total Bilirubin AST ALT Alkaline Phosphatase Total Protein Albumin Alpha Fetoprotein 02/12/24 02/09/24 11:40 21:46 WBC RBC Hgb Hct MCV MCH MCHC RDW Plt Count MPV Sodium Potassium Chloride Carbon Dioxide Anion Gap BUN Creatinine Estim Creat Clear Calc Estimated GFR Glucose POC Capillary Glucose 153 H Calcium Total Bilirubin AST ALT Alkaline Phosphatase Total Protein Albumin Alpha Fetoprotein 5.9 Preliminary micro results at discharge 02/09/24 23:32 Blood Culture - Preliminary Blood 02/09/24 22:26 Blood Culture - Preliminary Blood Discharge Plan Discharge Discharging Clinician: Murray Pugh Patient Disposition: [facility] Long Term/Asst Living Activity: no driving and as tolerated Diet: heart healthy and diabetic Discharge Instructions: Acute GI Bleed Patient Instructions: Antibiotic Form, Apixaban (By mouth), Heart Failure (GEN) Stand Alone Forms: General Discharge Information Discharge Medications: Continued ipratropium-albuterol 0.5 mg-3 mg(2.5 mg base)/3 mL Solution For Nebulization 3 ml INHALATION Q6H PRN (Reason: sob/wheezing) cyanocobalamin (vitamin B-12) 250 mcg Tablet 250 mcg PO DAILY pantoprazole 40 mg Tablet,Delayed Release (Dr/Ec) 40 mg PO QAM calcium carbonate 200 mg calcium (500 mg) Tablet,Chewable 400 mg PO Q8H PRN (Reason: Heartburn) Multiple Vitamin-Minerals Tablet 1 tablet PO DAILY polyethylene glycol 3350 [Miralax] 17 gram/dose Powder 17 g PO HS PRN (Reason: Constipation) ondansetron 4 mg Tablet,Disintegrating 4 mg PO Q8H PRN (Reason: Nausea And Vomiting) alum-mag hydroxide-simeth [Maalox Maximum Strength] 400-400-40 mg/5 mL Suspension 5 ml PO Q6H PRN (Reason: Heartburn) magnesium hydroxide [Milk Of Magnesia Concentrated] 2,400 mg/10 mL Suspension 30 ml PO DAILY PRN (Reason: Constipation) naloxone [Narcan] 4 mg/actuation [place],Non-Aerosol 1 spray INTRANASAL Q2-3M PRN (Reason: Opiate Reversal) Rx Instructions: spray 1 dose into ONE nostril; alternate nostrils w each dose until help arrives sennosides [senna] 8.6 mg Tablet 8.6 mg PO BID pyridoxine (vitamin B6) 25 mg Tablet 25 mg PO DAILY amiodarone [Pacerone] 200 mg Tablet 200 mg PO BID Qty: 60 0RF losartan 25 mg tablet 12.5 mg PO DAILY Qty: 30 0RF metoprolol tartrate 25 mg tablet 12.5 mg PO BID Qty: 30 0RF furosemide 40 mg tablet 40 mg PO DAILY metformin 500 mg tablet 500 mg PO DAILY primidone 50 mg tablet 50 mg PO BID gabapentin 600 mg tablet 600 mg PO TID trazodone 50 mg tablet 50 mg PO QHS acetaminophen 650 mg Tablet 650 mg PO TID tramadol 50 mg tablet 50 mg PO QID lorazepam 0.5 mg tablet 0.5 mg PO QHS ferrous sulfate 325 mg (65 mg iron) Tablet 325 mg PO DAILY ropinirole 0.5 mg tablet 0.5 mg PO QHS buspirone 10 mg tablet 10 mg PO TID albuterol sulfate 90 mcg/actuation HFA aerosol inhaler 2 puff INHALATION Q4H PRN (Reason: S.O.B) tamoxifen 20 mg tablet 20 mg PO DAILY cholecalciferol (vitamin D3) [Vitamin D3] 25 mcg (1,000 unit) Capsule 25 mcg PO DAILY Rx Instructions: 2 caps daily escitalopram oxalate 10 mg tablet 20 mg PO DAILY insulin aspart U-100 100 unit/mL (3 mL) insulin pen See Rx Instructions .ROUTE .COMPLEX Rx Instructions: Breakfast and Dinner SSI 141-180=2Units,181-220=4units,221-260=6units,261-300=8units,301-400=14units aripiprazole 5 mg tablet 5 mg PO DAILY Rx Instructions: takes with 2mg tab memantine 10 mg tablet 10 mg PO BID aripiprazole 2 mg tablet 2 mg PO DAILY Rx Instructions: takes with 5mg tab Held Eliquis 5 mg Tablet 5 mg PO Q12HR Qty: 60 0RF Hold Instructions: Resume on 02/14/24. Discontinued guaifenesin 600 mg Tablet Extended Release 600 mg PO BID aspirin [Children's Aspirin] 81 mg Tablet,Chewable 81 mg PO DAILY@0800 Qty: 30 0RF Date of admission: 02/10/24 14:46 Primary Care Provider: Reji Canas Admitting Provider: Ingris Swain V. Attending physician on admission: Ingris Swain V. Condition: Stable
[2024-02-13 12:06] LABS: Glucose Point of Care 158 mg/dl (65-105)
[2024-02-13 12:19] LABS: SARS-CoV-2 RNA PCR Negative (Negative)
--- NOTE | 2024-02-13 14:47 | PC.NURSE ---
On 02/13/24, the MAINTENANCE SERVICE TECHNICIAN, Debi Daly, provided care and [facility]. I have reviewed the MAINTENANCE SERVICE TECHNICIAN's documentation and agree with the findings.
== END 2024-02-13 13:40 | DRG 377 ==
LOC: ANHED 02-10 01:42 → ANHIMU 02-10 01:54 → ANH3MEDSUR 02-11 16:44
PROVIDERS: General Practice; Internal Medicine Gastroenterology; Nurse Practitioner; Admitting Provider Internal Medicine; Emergency Provider Physician Assistant; PCP Hospitalist; Visit Provider Internal Medicine
PROC: 0DJ08ZZ Inspection of Upper Intestinal Tract, Via Natural or Artificial Opening Endoscopic (ICD-10-PCS; CPT 43235; principal; 2024-02-12 10:30)
DX: K29.51 Unspecified chronic gastritis with bleeding (principal); R53.2 Functional quadriplegia; I48.20 Chronic atrial fibrillation, unspecified; R44.3 Hallucinations, unspecified; K76.6 Portal hypertension; K31.89 Other diseases of stomach and duodenum; K74.60 Unspecified cirrhosis of liver; K57.30 Diverticulosis of large intestine without perforation or abscess without bleeding; D12.5 Benign neoplasm of sigmoid colon; D12.3 Benign neoplasm of transverse colon; I95.9 Hypotension, unspecified; J44.9 Chronic obstructive pulmonary disease, unspecified; E11.9 Type 2 diabetes mellitus without complications; Z20.822 Contact with and (suspected) exposure to COVID-19; Z11.52 Encounter for screening for COVID-19; Z99.81 Dependence on supplemental oxygen; Z79.4 Long term (current) use of insulin; Z85.3 Personal history of malignant neoplasm of breast; Z87.891 Personal history of nicotine dependence
CPT/HCPCS: 36415; 36430; 36600; 70450; 71045; 71275; 74175; 80053; 80074; 81003; 82105; 82140; 82607; 82728; 82746; 82805; 82948; 83010; 83540; 83550; 83605; 83615; 83690; 83735; 83880; 84484; 85018; 85025; 85027; 85046; 85380; 85610; 85730; 86850; 86900; 86901; 86923; 87040; 87635; 87637; 88305; 93005; 93971; 94640; 96361; 96374; 99285; A9270; G0378; J1815; J2003; J2470; J2704; J2919; J7030; J7050; J7120; P9016; Q9967

== ENCOUNTER 2024-03-26 19:02 | Inpatient (IN) | payer MEDICARE, MEDICAID, SELFPAY ==
[2024-03-26] VITALS (7 sets, daily range): BP systolic 98–102; BP diastolic 59–80; PULSE 64–79; RESP 13–17; TEMP 36.6–36.9; O2SAT 95–100
--- NOTE | ~2024-03-26 | XR_ITS ---
EXAMINATION: XR chest 1V portable DATE: 03/26/2024 21:06 INDICATION: Cough and shortness of breath. TECHNIQUE: A single frontal view of the chest was obtained. COMPARISON: Chest view 02/09/2024, chest CT 02/09/2024 FINDINGS: There are lucencies in the lungs, consistent with emphysema. A calcified right lung nodule and calcified right hilar lymph nodes are consistent with old granulomatous disease. No pleural effus ion or pneumothorax. The heart size is normal. There is a left internal jugular port with tip in supe rior vena cava. There is an old healed fracture of proximal left humerus. IMPRESSION: 1. Emphysema. Reviewed, dictated and finalized at location [facility]. [facility] IMPRESSION: 1. Emphysema.
--- NOTE | ~2024-03-26 | XR_ITS ---
XR abdomen/kub 1V DATE: 03/27/2024 16:54 INDICATION: Elevated lactic acid. Diminished bowel sounds, unsure of last bowel movement. TECHNIQUE: 2 portable supine AP views of the abdomen COMPARISON: None FINDINGS: No evidence of bowel obstruction or apparent intraperitoneal free air. No visceromegaly is appreciated. No significant abnormal calcification is detected other than some ar terial calcification. Osteopenia. IMPRESSION: Nonspecific abdomen; no evidence of bowel obstruction Reviewed, dictated and finalized at [facility]. Reviewed, dictated and finalized at location [facility]. ATRIC SURGEON
--- NOTE | 2024-03-26 20:13 | ECG_ITS ---
Test Date: 2024-03-26 20:28:57 Measurements Intervals [place] Rate: 62 P: 41 SC: 159 QRS: 2 QRSD: 98 T: 76 QT: 428 QTc: 437 Interpretive Statements SINUS RHYTHM POSSIBLE RIGHT VENTRICULAR CONDUCTION DELAY [RSR (QR) IN V1/V2] PROBABLE SEPTAL MYOCARDIAL INFARCTION , OF INDETERMINATE AGE [35 ms Q WAVE IN V1/V2] Compared to ECG 02/13/2024 10:53:33 no change compared to prior EKG Electronically Signed On 03-27-2024 14:52:53 SOFTWARE PRODUCT MANAGER by Lalo Anguiano M.D.
[2024-03-26 21:12] LABS: Basophils Percent Auto 0.2 % (0.2-1.2); Eosinophils Percent Auto 0.2 % (0-4.4); Hematocrit 38.1 % (37.0-47.0); Hemoglobin 11.6 g/dL (12.0-15.0); Immature Granulocyte Absolute 0.05 K/mm3 (0.00-0.031); Immature Granulocyte Percent A 0.5 % (0-0.5); Lymphocytes Absolute Auto 1.32 K/mm3 (0.9-3.2); Lymphocytes Percent Auto 14.4 % (18.3-44.2); Mean Corpuscular HGB Conc 30.4 g/dl (32-36); Mean Corpuscular Hemoglobin 28.2 pg (26-34); Mean Corpuscular Volume 92.7 fl (80-100); Mean Platelet Volume 10.4 fl (7.4-10.4); Monocytes Absolute Auto 0.5 K/mm3 (0.1-0.6); Monocytes Percent Auto 5.3 % (2.6-8.5); Neutrophils Absolute Auto 7.3 K/mm3 (1.3-6.7); Neutrophils Percent Auto 79.4 % (45.5-73.1); Platelet Count Result 212 k/mm3 (150-375); Red Blood Count 4.11 M/mm3 (4.2-5.4); Red Cell Distribution Width 14.9 % (11.5-14.5); White Blood Count 9.2 K/mm3 (4.5-10.0)
[2024-03-26 21:14] LABS: Fractional Inspired Oxygen 21 %; HCO3 VBG 34.4 mEq/l (24.0-30.0); PCO2 VBG 39.7 mmHg (42.0-48.0); PO2 VBG 95.9 mmHg (35.0-45.0)
[2024-03-26 21:15] LABS: pH VBG 7.556 (7.300-7.400)
[2024-03-26 21:18] LABS: Lactic Acid Reflex 2.3 mmol/L (0.7-2.0)
[2024-03-26] MEDS: IPRATROPIUM 0.5 MG/ALBUTEROL SULFATE 2.5 MG AMPUL.NEB 3 ML 12 ML INHALATION (21:18)
[2024-03-26 21:19] LABS: Alanine Aminotransferase 44 U/L (6-35); Albumin Level 3.8 g/dL (3.5-5.1); Alkaline Phosphatase 101 U/L (38-126); Anion Gap 3 mmol/L (4-12); Aspartate Amino Transferase 51 U/L (14-36); Bilirubin,Total 0.4 mg/dL (0.2-1.3); Blood Urea Nitrogen 16 mg/dL (7-17); Calcium 8.3 mg/dL (8.4-10.2); Carbon Dioxide 39 mmol/L (22-30); Chloride 99 mmol/L (98-107); Estimated Glomerular Filt Rate > 60; Glucose 155 mg/dL (65-110); Lipase 121 U/L (23-300); Magnesium 2.1 mg/dL (1.6-2.3); Phosphorus 3.1 mg/dL (2.5-4.5); Potassium 3.8 mmol/L (3.4-5.0); Sodium 141 mmol/L (137-145)
[2024-03-26] MEDS: CEFEPIME 2 GM/NS 50 ML 2 GM/50 ML BAG IVPB (21:30)
[2024-03-26] MEDS: methylPREDNISolone SOD SUCC 125 MG VIAL IV PUSH (21:30)
[2024-03-26 21:36] LABS: Troponin I < 0.012 ng/mL (0.000-0.034)
[2024-03-26 21:43] LABS: INR 1.1; Prothrombin Time 14.8 Seconds (11.1-14.7)
[2024-03-26 21:44] LABS: Partial Thromboplastin Time 29.5 Seconds (22.3-36.8)
[2024-03-26 21:54] LABS: NT Pro B Type Natriuretic Pept 256 pg/mL (19.9-100)
[2024-03-26 22:09] LABS: Influenza A QL RT-PCR Negative (Negative); Influenza B QL RT-PCR Negative (Negative); RSV RNA, RT-PCR Negative (Negative); SARS-CoV-2 RNA PCR Negative (Negative)
--- NOTE | 2024-03-26 22:13 | ED_ITS ---
HPI - General Adult General Chief complaint: Chest Pain Stated complaint: cough, sob, CP Time Seen by Provider: 03/26/24 20:06 History of Present Illness HPI narrative: This is a 73-year-old female with history of COPD on 3 L home oxygen presenting for chest pain shortness of breath. Over last week patient has had gradually worsening chest pain and shortness of breath. The chest pain is a sharp pain in the center of chest. She is coughing productive green sputum. She did have 1 episode of nausea vomiting earlier week. She denies fevers abdominal pain, urinary symptoms diarrhea. Patient notes she has been sweating more than usual. Related Data Home Medications Medication Instructions Recorded Confirmed acetaminophen 650 mg tablet 650 mg PO TID 10/28/23 02/12/24 albuterol sulfate 90 mcg/actuation 2 puff inhalation Q4H PRN S.O.B 10/28/23 02/12/24 aerosol inhaler aripiprazole 2 mg tablet 2 mg PO DAILY 10/28/23 02/12/24 aripiprazole 5 mg tablet 5 mg PO DAILY 10/28/23 02/12/24 buspirone 10 mg tablet 10 mg PO TID 10/28/23 02/12/24 cholecalciferol (vitamin D3) 25 25 mcg PO DAILY 10/28/23 02/12/24 mcg (1,000 unit) capsule (Vitamin D3) escitalopram oxalate 10 mg tablet 20 mg PO DAILY 10/28/23 02/12/24 ferrous sulfate 325 mg (65 mg 325 mg PO DAILY 10/28/23 02/12/24 iron) tablet furosemide 40 mg tablet 40 mg PO DAILY 10/28/23 02/12/24 gabapentin 600 mg tablet 600 mg PO TID 10/28/23 02/12/24 insulin aspart U-100 100 unit/mL See Rx Instructions .Route .COMPLEX 10/28/23 02/12/24 (3 mL) subcutaneous pen lorazepam 0.5 mg tablet 0.5 mg PO QHS 10/28/23 02/12/24 memantine 10 mg tablet 10 mg PO BID 10/28/23 02/12/24 metformin 500 mg tablet 500 mg PO DAILY 10/28/23 02/12/24 primidone 50 mg tablet 50 mg PO BID 10/28/23 02/12/24 ropinirole 0.5 mg tablet 0.5 mg PO QHS 10/28/23 02/12/24 tamoxifen 20 mg tablet 20 mg PO DAILY 10/28/23 02/12/24 tramadol 50 mg tablet 50 mg PO QID 10/28/23 02/12/24 trazodone 50 mg tablet 50 mg PO QHS 10/28/23 02/12/24 aluminum-mag hydroxide-simethicone 5 ml PO Q6H PRN Heartburn 01/11/24 02/12/24 400 mg-400 mg-40 mg/5 mL oral susp (Maalox Maximum Strength) calcium carbonate 400 mg PO Q8H PRN Heartburn 01/11/24 02/12/24 cyanocobalamin (vitamin B-12) 250 250 mcg PO DAILY 01/11/24 02/12/24 mcg tablet ipratropium 0.5 mg-albuterol 3 mg 3 ml inhalation Q6H PRN 01/11/24 02/12/24 (2.5 mg base)/3 mL nebulization sob/wheezing soln magnesium hydroxide 2,400 mg/10 mL 30 ml PO DAILY PRN Constipation 01/11/24 02/12/24 oral suspension (Milk Of Magnesia Concentrated) multivitamin with minerals 1 tablet PO DAILY 01/11/24 02/12/24 (Multiple Vitamin-Minerals tablet) naloxone 4 mg/actuation nasal 1 spray intranasal Q2-3M PRN 01/11/24 02/12/24 spray (Narcan) Opiate Reversal ondansetron 4 mg disintegrating 4 mg PO Q8H PRN Nausea And Vomiting 01/11/24 02/12/24 tablet pantoprazole 40 mg tablet,delayed 40 mg PO QAM 01/11/24 02/12/24 release polyethylene glycol 3350 17 17 g PO HS PRN Constipation 01/11/24 02/12/24 gram/dose oral powder (Miralax) pyridoxine (vitamin B6) 25 mg 25 mg PO DAILY 01/11/24 02/12/24 tablet sennosides 8.6 mg tablet (senna) 8.6 mg PO BID 01/11/24 02/12/24 Allergies Allergy/AdvReac Type Severity Reaction Status Date / Time amoxicillin [From Augmentin] Allergy Unknown Verified 03/22/24 13:01 clavulanic acid Allergy Unknown Verified 03/22/24 13:01 [From Augmentin] [facility] Past Medical History Medical History Cirrhosis COPD (chronic obstructive pulmonary disease) Diabetes Surgical History Surgical History No significant past surgical history Social History Social History Smoking packs per day: 1 Smoking cigarettes per day: 20.0 Years smoked: 50 Smoking pack-years: 50.00 Smoking status: Former smoker Second hand tobacco smoke exposure: No Alcohol intake: former Substance use: never Do You Feel Safe in your Home?: Yes Lack of Transportation: No Lack of Food: Never True Current Housing: I Have Housing Concerned About Future Housing: No Difficulty Paying Gas/Electric Bills: No Difficulty Paying for Meds: No Currently Unemployed: No Education: High School Diploma/GED Difficulty w/ Childcare or Family Care: No Spiritual care concerns: No Exam Narrative: APPEARANCE: Patient appears chronically unwell Head: atraumatic. EYES: EOMI, NOSE: Atraumatic NECK: Trachea midline RESPIRATORY: tachypneic, bilateral rhonchi, on 3 L nasal cannula which is baseline oxygen level CARDIOVASCULAR: RRR, no peripheral edema ABDOMINAL: obese, nontender MUSCULOSKELETAl: No obvious deformities NEURO: Alert. Moving 4/4 extremities SKIN:: clammy PSYCHIATRIC: Normal affect Course Vital Signs Vital signs: Vital Signs Temperature 97.8 F 03/26/24 19:05 Pulse Rate 68 03/26/24 19:05 Respiratory Rate 16 03/26/24 19:05 Blood Pressure 102/59 L 03/26/24 19:05 Pulse Oximetry 100 03/26/24 19:05 Temperature 98.5 F 03/26/24 23:43 Pulse Rate 79 03/26/24 22:45 Respiratory Rate 15 03/26/24 22:45 Blood Pressure 98/80 L 03/26/24 20:16 Pulse Oximetry 95 03/26/24 22:45 Oxygen Delivery Nasal Cannula 03/26/24 22:34 Oxygen Flow Rate 3 03/26/24 22:34 Medical Decision Making MDM Narrative Medical decision making narrative: -Course: 73-year-old [place] resident presenting with chest pain/difficulty breathing. Physical exam showed productive cough, diffuse rhonchi, cool clammy skin. blood pressure 102/59. Sepsis workup obtained. Patient given fluid resuscitation (1 L, due to takusubo 35%EF), started on broad-spectrum antibiotics for suspected pna. Given duoneb treatment. Patient will be admitted hospital further management. -DDX includes but is not limited to: pneumonia, COPD exacerbation, sepsis, UTI -Independent interpretation of studies: labs and imaging reviewed Independent EKG interpretation: Rhythm [sinus], Rate [62], [place] -[normal], [place] -[normal], QRS [narrow], QTC [normal], T waves -[negative for concerning inversions], ST Segments - [Negative for concerning elevations] Final interpretations: [Normal Sinus Rhythm] -Discussion of Management/Consultants: Corrine -Shared decision making / Disposition:admitted. Vital Signs Vital Signs: Vital Signs Temperature 97.8 F 03/26/24 19:05 Pulse Rate 68 03/26/24 19:05 Respiratory Rate 16 03/26/24 19:05 Blood Pressure 102/59 L 03/26/24 19:05 Pulse Oximetry 100 03/26/24 19:05 Temperature 98.5 F 03/26/24 23:43 Pulse Rate 79 03/26/24 22:45 Respiratory Rate 15 03/26/24 22:45 Blood Pressure 98/80 L 03/26/24 20:16 Pulse Oximetry 95 03/26/24 22:45 Oxygen Delivery Nasal Cannula 03/26/24 22:34 Oxygen Flow Rate 3 03/26/24 22:34 Lab Data 03/26/24 21:01 03/26/24 21:01 Labs: Lab Results 03/26/24 03/26/24 03/26/24 Range/Units 21:01 21:23 23:16 WBC 9.2 (4.5-10.0) K/mm3 RBC 4.11 L (4.2-5.4) M/mm3 Hgb 11.6 L (12.0-15.0) g/dL Hct 38.1 (37.0-47.0) % MCV 92.7 (80-100) fl MCH 28.2 (26-34) pg MCHC 30.4 L (32-36) g/dl RDW 14.9 H (11.5-14.5) % Plt Count 212 (150-375) k/mm3 MPV 10.4 (7.4-10.4) fl Immature Gran % (Auto) 0.5 (0-0.5) % Neut % (Auto) 79.4 H (45.5-73.1) % Lymph % (Auto) 14.4 L (18.3-44.2) % Owen % (Auto) 5.3 (2.6-8.5) % Eos % (Auto) 0.2 (0-4.4) % Baso % (Auto) 0.2 (0.2-1.2) % Lymph # (Auto) 1.32 (0.9-3.2) K/mm3 Owen # (Auto) 0.5 (0.1-0.6) K/mm3 Eos # (Auto) 0.0 (0-0.3) K/mm3 Baso # (Auto) 0.0 (0.0-0.1) K/mm3 Abs Immat Gran (auto) 0.05 H (0.00-0.031) K/mm3 Absolute Neuts (auto) 7.3 H (1.3-6.7) K/mm3 Absolute Nucleated RBC 0.000 (0.0-0.012) K/mm3 Nucleated RBC % 0.0 (0.0-0.2) % PT 14.8 H (11.1-14.7) Seconds INR 1.1 APTT 29.5 (22.3-36.8) Seconds Sodium 141 (137-145) mmol/L Potassium 3.8 (3.4-5.0) mmol/L Chloride 99 (98-107) mmol/L Carbon Dioxide 39 H (22-30) mmol/L Anion Gap 3 L (4-12) mmol/L BUN 16 (7-17) mg/dL Creatinine 0.50 L (0.7-1.0) mg/dL Estim Creat Clear Calc Not Reportable Estimated GFR > 60 (59 - ) Glucose 155 H (65-110) mg/dL Lactic Acid 2.3 H (0.7-2.0) mmol/L Calcium 8.3 L (8.4-10.2) mg/dL Phosphorus 3.1 (2.5-4.5) mg/dL Magnesium 2.1 (1.6-2.3) mg/dL Total Bilirubin 0.4 (0.2-1.3) mg/dL AST 51 H (14-36) U/L ALT 44 H (6-35) U/L Alkaline Phosphatase 101 (38-126) U/L Troponin I < 0.012 (0.000-0.034) ng/mL NT-Pro-B Natriuret Pep 256 H (19.9-100) pg/mL Total Protein 6.0 L (6.3-8.2) g/dL Albumin 3.8 (3.5-5.1) g/dL Lipase 121 (23-300) U/L TSH (Reflex) 1.490 (0.465-4.68) uIU/mL Urine Color Yellow (Yellow) Urine Appearance Cloudy H (Clear) Urine pH 6.0 (5.0-9.0) Ur Specific [place] 1.030 (1.001-1.035) Urine Protein Trace (Negative) mg/dL Urine Glucose (UA) 2+ H (Negative) mg/dL Urine Ketones Trace H (Negative) mg/dL Ur Blood (Man) Negative (Negative) Urine Nitrate Positive H (Negative) Urine Bilirubin Negative (Negative) Urine Urobilinogen 0.2 (<2.0) mg/dL Add Ur Microanalysis Reviewed Leukocyte Esterase Rfl 1+ H (Negative) JACE/UL Urine RBC 0-2 (0-2) /hpf Urine WBC 21-50 H (0-3) /hpf Ur Squamous Epith Cells None seen (Few) /hpf Urine Bacteria 4+ H /hpf Urine Casts 3-5 Urine Mucus Present /lpf Urine Yeast (Budding) Present H (None) /hpf Nasal MRSA (PCR) Not detected (NOT DETECTE) Influenza A (RT-PCR) Negative (Negative) Influenza B (RT-PCR) Negative (Negative) RSV (RT-PCR) Negative (Negative) SARS-CoV-2 RNA (RT-PCR) Negative (Negative) 03/26/24 Range/Units 23:37 WBC (4.5-10.0) K/mm3 RBC (4.2-5.4) M/mm3 Hgb (12.0-15.0) g/dL Hct (37.0-47.0) % MCV (80-100) fl MCH (26-34) pg MCHC (32-36) g/dl RDW (11.5-14.5) % Plt Count (150-375) k/mm3 MPV (7.4-10.4) fl Immature Gran % (Auto) (0-0.5) % Neut % (Auto) (45.5-73.1) % Lymph % (Auto) (18.3-44.2) % Owen % (Auto) (2.6-8.5) % Eos % (Auto) (0-4.4) % Baso % (Auto) (0.2-1.2) % Lymph # (Auto) (0.9-3.2) K/mm3 Owen # (Auto) (0.1-0.6) K/mm3 Eos # (Auto) (0-0.3) K/mm3 Baso # (Auto) (0.0-0.1) K/mm3 Abs Immat Gran (auto) (0.00-0.031) K/mm3 Absolute Neuts (auto) (1.3-6.7) K/mm3 Absolute Nucleated RBC (0.0-0.012) K/mm3 Nucleated RBC % (0.0-0.2) % PT (11.1-14.7) Seconds INR APTT (22.3-36.8) Seconds Sodium (137-145) mmol/L Potassium (3.4-5.0) mmol/L Chloride (98-107) mmol/L Carbon Dioxide (22-30) mmol/L Anion Gap (4-12) mmol/L BUN (7-17) mg/dL Creatinine (0.7-1.0) mg/dL Estim Creat Clear Calc Estimated GFR (59 - ) Glucose (65-110) mg/dL Lactic Acid (0.7-2.0) mmol/L Calcium (8.4-10.2) mg/dL Phosphorus (2.5-4.5) mg/dL Magnesium (1.6-2.3) mg/dL Total Bilirubin (0.2-1.3) mg/dL AST (14-36) U/L ALT (6-35) U/L Alkaline Phosphatase (38-126) U/L Troponin I < 0.012 (0.000-0.034) ng/mL NT-Pro-B Natriuret Pep (19.9-100) pg/mL Total Protein (6.3-8.2) g/dL Albumin (3.5-5.1) g/dL Lipase (23-300) U/L TSH (Reflex) (0.465-4.68) uIU/mL Urine Color (Yellow) Urine Appearance (Clear) Urine pH (5.0-9.0) Ur Specific [place] (1.001-1.035) Urine Protein (Negative) mg/dL Urine Glucose (UA) (Negative) mg/dL Urine Ketones (Negative) mg/dL Ur Blood (Man) (Negative) Urine Nitrate (Negative) Urine Bilirubin (Negative) Urine Urobilinogen (<2.0) mg/dL Add Ur Microanalysis Leukocyte Esterase Rfl (Negative) JACE/UL Urine RBC (0-2) /hpf Urine WBC (0-3) /hpf Ur Squamous Epith Cells (Few) /hpf Urine Bacteria /hpf Urine Casts Urine Mucus /lpf Urine Yeast (Budding) (None) /hpf Nasal MRSA (PCR) (NOT DETECTE) Influenza A (RT-PCR) (Negative) Influenza B (RT-PCR) (Negative) RSV (RT-PCR) (Negative) SARS-CoV-2 RNA (RT-PCR) (Negative) ABG Data ABG results: 03/26/24 20:14 VBG pH 7.556 H* VBG pCO2 39.7 L VBG pO2 95.9 H VBG HCO3 34.4 H O2 Delivery Device Not Reportable O2 Liters/Min Not Reportable FiO2 21 Critical Care Time Critical Care Time Critical Care Time: Yes Total Critical Care Time: 35 Discharge Plan Discharge Clinical Impression: Pneumonia, COPD (chronic obstructive pulmonary disease), CHF (congestive heart failure) Patient Disposition: Still a Patient Condition: Stable Prescriptions: No Action ipratropium-albuterol 0.5 mg-3 mg(2.5 mg base)/3 mL Solution For Nebulization 3 ml INHALATION Q6H PRN (Reason: sob/wheezing) cyanocobalamin (vitamin B-12) 250 mcg Tablet 250 mcg PO DAILY pantoprazole 40 mg Tablet,Delayed Release (Dr/Ec) 40 mg PO QAM calcium carbonate 200 mg calcium (500 mg) Tablet,Chewable 400 mg PO Q8H PRN (Reason: Heartburn) Multiple Vitamin-Minerals Tablet 1 tablet PO DAILY polyethylene glycol 3350 [Miralax] 17 gram/dose Powder 17 g PO HS PRN (Reason: Constipation) ondansetron 4 mg Tablet,Disintegrating 4 mg PO Q8H PRN (Reason: Nausea And Vomiting) alum-mag hydroxide-simeth [Maalox Maximum Strength] 400-400-40 mg/5 mL Suspension 5 ml PO Q6H PRN (Reason: Heartburn) magnesium hydroxide [Milk Of Magnesia Concentrated] 2,400 mg/10 mL Suspension 30 ml PO DAILY PRN (Reason: Constipation) naloxone [Narcan] 4 mg/actuation [place],Non-Aerosol 1 spray INTRANASAL Q2-3M PRN (Reason: Opiate Reversal) Rx Instructions: spray 1 dose into ONE nostril; alternate nostrils w each dose until help arrives sennosides [senna] 8.6 mg Tablet 8.6 mg PO BID pyridoxine (vitamin B6) 25 mg Tablet 25 mg PO DAILY amiodarone [Pacerone] 200 mg Tablet 200 mg PO BID Qty: 60 0RF Eliquis 5 mg Tablet 5 mg PO Q12HR Qty: 60 0RF Hold Instructions: Resume on 02/14/24. losartan 25 mg tablet 12.5 mg PO DAILY Qty: 30 0RF metoprolol tartrate 25 mg tablet 12.5 mg PO BID Qty: 30 0RF furosemide 40 mg tablet 40 mg PO DAILY metformin 500 mg tablet 500 mg PO DAILY primidone 50 mg tablet 50 mg PO BID gabapentin 600 mg tablet 600 mg PO TID trazodone 50 mg tablet 50 mg PO QHS acetaminophen 650 mg Tablet 650 mg PO TID tramadol 50 mg tablet 50 mg PO QID lorazepam 0.5 mg tablet 0.5 mg PO QHS ferrous sulfate 325 mg (65 mg iron) Tablet 325 mg PO DAILY ropinirole 0.5 mg tablet 0.5 mg PO QHS buspirone 10 mg tablet 10 mg PO TID albuterol sulfate 90 mcg/actuation HFA aerosol inhaler 2 puff INHALATION Q4H PRN (Reason: S.O.B) tamoxifen 20 mg tablet 20 mg PO DAILY cholecalciferol (vitamin D3) [Vitamin D3] 25 mcg (1,000 unit) Capsule 25 mcg PO DAILY Rx Instructions: 2 caps daily escitalopram oxalate 10 mg tablet 20 mg PO DAILY insulin aspart U-100 100 unit/mL (3 mL) insulin pen See Rx Instructions .ROUTE .COMPLEX Rx Instructions: Breakfast and Dinner SSI 141-180=2Units,181-220=4units,221-260=6units,261-300=8units,301-400=14units aripiprazole 5 mg tablet 5 mg PO DAILY Rx Instructions: takes with 2mg tab memantine 10 mg tablet 10 mg PO BID aripiprazole 2 mg tablet 2 mg PO DAILY Rx Instructions: takes with 5mg tab Follow-up/Referrals: PHYSICIAN,PHOTOGRAPHIC AIDE [Primary Care Provider] -
[2024-03-26] MEDS: DOXYCYCLINE 100 MG/NS 100 ML 100 MG/100 ML BAG IVPB (22:18)
[2024-03-26] MEDS: VANCOMYCIN 1,250 MG/NS 250 ML 1,250 MG/250 ML BAG 166.67 MG IVPB (23:18)
[2024-03-26] MEDS: SODIUM CHLORIDE 0.9% IV 1,000 ML 999 ML IV CONT (23:33)
[2024-03-26 23:34] LABS: Add Urine Microscopic? YES; Appearance Urine Cloudy (Clear); Bacteria Urine 4+ /hpf; Bilirubin Urine Negative (Negative); Blood Urine Negative (Negative); Budding Yeast Urine Present /hpf; Color Urine Yellow (Yellow); Glucose Urine UA 2+ mg/dL (Negative); Ketones Urine Trace mg/dL (Negative); Leukocyte Esterase Ur 1+ LEU/UL (Negative); Mucus Urine Present /lpf; Need Manual Microscopic Reviewed; Nitrate Urine Positive (Negative); Protein Urine Trace mg/dL (Negative); RBC Urine 0-2 /hpf (0-2); Squamous Epithelial Cell Urine None Seen /hpf (Few); Urobilinogen Urine 0.2 mg/dL (<2.0); WBC Urine 21-50 /hpf (0-3)
--- NOTE | 2024-03-26 23:54 | PC.NURSE ---
gave pt care and report to ABILIO Uribe. all questions answered.
[2024-03-27] VITALS (22 sets, daily range): BP systolic 96–153; BP diastolic 58–107; PULSE 58–119; RESP 14–20; TEMP 36.2–36.9; O2SAT 93–100; BMI 35.4; BMI 36.7
[2024-03-27 00:04] LABS: Reflex Lactic Acid Yes or No Add Lactic
[2024-03-27 00:17] LABS: Troponin I < 0.012 ng/mL (0.000-0.034)
[2024-03-27 00:34] LABS: MRSA (PCR) NOT DETECTED (NOT DETECTE)
[2024-03-27] MEDS: VANCOMYCIN 1,250 MG/NS 250 ML 1,250 MG/250 ML BAG 166.67 MG IVPB (01:00)
[2024-03-27 01:46] LABS: Lactic Acid 3.4 mmol/L (0.7-2.0)
--- NOTE | 2024-03-27 02:37 | ADMGEN ---
This patient, Marleni Mcgrath, was admitted to Medical Room 250-01. Patient/family oriented to hospital policies and general routines including ID bracelet, bed and alarms, visiting hours, pain management, procedures, bathroom and other care routines, personal items, smoking policy, room service/diet, and visiting hours. Information on how to activate the Rapid Response Team has been discussed. Patient/Family are encouraged to report perceived risks to care and to ask questions if they do not understand what they are told or what they should do.
[2024-03-27 04:26] LABS: Glucose Point of Care 235 mg/dl (65-105)
[2024-03-27 06:16] LABS: Estimated CRCL calculation 88 ml/min; Estimated Glomerular Filt Rate > 60
--- NOTE | 2024-03-27 07:05 | P.HP_ITS ---
H&P: HPI History of Present Illness Date/Time: 03/27/24 07:05 Chief Complaint: Productive cough Narrative: 73-year-old female with a past medical history of COPD with chronic hypoxic respiratory failure, atrial fibrillation, CHF, diabetes, obesity and GERD who presented to the ER via EMS from [facility] due to shortness of breath and productive cough. The patient states that she has had 6 days of worsening cough. She states she always has a chronic cough usually productive of clear sputum. However over the last 6 days her sputum has become thicker and green in color. She is on chronic home O2 of 3 L. She reports that she has been having intermittent sweats but denies any significant chills. She has not measured a temperature at the correction or at our facility. She reports that she has been getting her nebulizer treatments at the correction in the briefly help with her shortness of breath. She reports sharp chest pain any time she coughs or when she takes a really deep breath. She denies any nausea or vomiting. She has issues with intermittent constipation and she states that she frankly cannot remember the last time she had a bowel movement. She denies any acute abdominal pain. She reports that she has wheelchair bound. She has been residing in a correction for 6 years and has been in [facility] for the last 2. She has chronic issues with urinary incontinence. When she arrived to the ER she smelled strongly of urine. She denies any dysuria or changes in urinary frequency. Despite the patient's history of dementia as she has a fairly decent historian. She is alert orient x4 at the time my eval. Review of Systems Review of Systems: 12 systems were reviewed with pertinent positives and negatives per HPI. Except as documented in the HPI, all other systems were reviewed and are negative. [facility] Past Medical History Medical History (Updated 03/27/24 @ 20:30 by Anaya Castle DO) Anxiety and depression Breast cancer With history of radiation therapy and chemotherapy CHF (congestive heart failure) Cholelithiasis Chronic anticoagulation Chronic constipation Chronic hypoxic respiratory failure, on home oxygen therapy Cirrhosis Closed fracture of left proximal humerus Compression fracture of L1 vertebra COPD (chronic obstructive pulmonary disease) Dementia Mild Diabetes Dysphagia Essential tremor Iron deficiency anemia Portal hypertensive gastropathy Psychosis Patient has had a history of hallucinations/psychosis she is on Abilify. It is unclear for psychosis is due to dementia with psychosis verses depression with psychosis or history of possible underlying bipolar patient is not able to provide the details Restless leg syndrome T12 burst fracture Type 2 diabetes mellitus treated with insulin Surgical History Surgical History (Updated 03/27/24 @ 20:28 by Anaya Castle DO) History of bilateral mastectomy History of colonoscopy with polypectomy Family History Family History Other Unknown family medical history Social History Social History Smoking packs per day: 1 Smoking cigarettes per day: 20.0 Years smoked: 50 Smoking pack-years: 50.00 Smoking status: Former smoker Second hand tobacco smoke exposure: No Alcohol intake: never Substance use: never Do You Feel Safe in your Home?: Yes Lack of Transportation: No Lack of Food: Never True Current Housing: I Have Housing Concerned About Future Housing: No Difficulty Paying Gas/Electric Bills: No Difficulty Paying for Meds: No Currently Unemployed: No Education: High School Diploma/GED Difficulty w/ Childcare or Family Care: No Spiritual care concerns: No Meds Home Medications and Allergies Home Medications Medication Instructions Recorded Confirmed Type acetaminophen 650 mg tablet 650 mg PO TID 10/28/23 03/27/24 History albuterol sulfate 90 mcg/actuation 2 puff inhalation Q4H PRN 10/28/23 03/27/24 History aerosol inhaler Shortness Of Breath Or Wheezing aripiprazole 2 mg tablet 2 mg PO DAILY 10/28/23 03/27/24 History aripiprazole 5 mg tablet 5 mg PO DAILY 10/28/23 03/27/24 History buspirone 10 mg tablet 10 mg PO TID 10/28/23 03/27/24 History cholecalciferol (vitamin D3) 25 25 mcg PO DAILY 10/28/23 03/27/24 History mcg (1,000 unit) capsule (Vitamin D3) escitalopram oxalate 10 mg tablet 20 mg PO DAILY 10/28/23 03/27/24 History ferrous sulfate 325 mg (65 mg 325 mg PO DAILY 10/28/23 03/27/24 History iron) tablet furosemide 40 mg tablet 40 mg PO DAILY 10/28/23 03/27/24 History gabapentin 600 mg tablet 600 mg PO TID 10/28/23 03/27/24 History insulin aspart U-100 100 unit/mL See Rx Instructions .Route .COMPLEX 10/28/23 History (3 mL) subcutaneous pen lorazepam 0.5 mg tablet 0.5 mg PO QHS 10/28/23 03/27/24 History memantine 10 mg tablet 10 mg PO BID 10/28/23 03/27/24 History metformin 500 mg tablet 500 mg PO DAILY 10/28/23 03/27/24 History primidone 50 mg tablet 50 mg PO BID 10/28/23 03/27/24 History ropinirole 0.5 mg tablet 0.5 mg PO QHS 10/28/23 03/27/24 History tamoxifen 20 mg tablet 20 mg PO DAILY 10/28/23 03/27/24 History tramadol 50 mg tablet 50 mg PO QID 10/28/23 03/27/24 History trazodone 50 mg tablet 50 mg PO QHS 10/28/23 03/27/24 History aluminum-mag hydroxide-simethicone 5 ml PO Q6H PRN Heartburn 01/11/24 03/27/24 History 400 mg-400 mg-40 mg/5 mL oral susp (Maalox Maximum Strength) calcium carbonate 400 mg PO Q8H PRN Heartburn 01/11/24 03/27/24 History cyanocobalamin (vitamin B-12) 250 250 mcg PO DAILY 01/11/24 03/27/24 History mcg tablet ipratropium 0.5 mg-albuterol 3 mg 3 ml inhalation Q6H PRN 01/11/24 03/27/24 History (2.5 mg base)/3 mL nebulization sob/wheezing soln magnesium hydroxide 2,400 mg/10 mL 30 ml PO Q6H PRN Constipation 01/11/24 03/27/24 History oral suspension (Milk Of Magnesia Concentrated) multivitamin with minerals 1 tablet PO DAILY 01/11/24 03/27/24 History (Multiple Vitamin-Minerals tablet) naloxone 4 mg/actuation nasal 1 spray intranasal Q2-3M PRN 01/11/24 03/27/24 History spray (Narcan) Opiate Reversal ondansetron 4 mg disintegrating 4 mg PO Q8H PRN Nausea And Vomiting 01/11/24 03/27/24 History tablet pantoprazole 40 mg tablet,delayed 40 mg PO QAM 01/11/24 03/27/24 History release polyethylene glycol 3350 17 17 g PO HS PRN Constipation 01/11/24 03/27/24 Hi story gram/dose oral powder (Miralax) pyridoxine (vitamin B6) 25 mg 25 mg PO DAILY 01/11/24 03/27/24 History tablet sennosides 8.6 mg tablet (senna) 8.6 mg PO BID 01/11/24 03/27/24 History amiodarone 200 mg tablet (Pacerone) 200 mg PO BID #60 tabs 01/14/24 03/27/24 Rx apixaban 5 mg tablet (Eliquis) 5 mg PO Q12HR #60 tabs 01/14/24 03/27/24 Rx losartan 25 mg tablet 12.5 mg PO DAILY #30 tabs 01/14/24 03/27/24 Rx metoprolol tartrate 25 mg tablet 12.5 mg PO BID #30 tabs 01/14/24 03/27/24 Rx Novolog FlexPen U-100 Insulin 2 - 14 units BID 03/27/24 03/27/24 History nystatin 100,000 unit/gram topical 1 applic topical PRN PRN Antifungal 03/27/24 03/27/24 History powder Allergies Allergy/AdvReac Type Severity Reaction Status Date / Time amoxicillin [From Augmentin] Allergy Unknown Verified 03/22/24 13:01 clavulanic acid Allergy Unknown Verified 03/22/24 13:01 [From Augmentin] Vital Signs Vital Signs - 24 hr 03/26/24 19:05 03/26/24 20:16 03/26/24 21:21 Temperature 97.8 F Pulse Rate 68 64 64 Respiratory Rate 16 13 15 Blood Pressure 102/59 L 98/80 L Pulse Oximetry 100 99 Oxygen Delivery Oxygen Flow Rate 03/26/24 22:34 03/26/24 21:39 03/26/24 22:45 Temperature Pulse Rate 66 79 Respiratory Rate 17 15 Blood Pressure Pulse Oximetry 98 97 95 Oxygen Delivery Nasal Cannula Oxygen Flow Rate 3 03/26/24 23:43 03/27/24 01:44 03/27/24 02:44 Temperature 98.5 F 98.1 F Pulse Rate 71 71 Respiratory Rate 14 18 Blood Pressure 115/65 125/62 Pulse Oximetry 98 98 Oxygen Delivery Oxygen Flow Rate 03/27/24 03:37 12/08/24 03:00 03/27/24 04:00 Temperature 98.2 F Pulse Rate 119 H 64 68 Respiratory Rate 18 Blood Pressure 130/60 Pulse Oximetry 93 93 Oxygen Delivery Nasal Cannula Oxygen Flow Rate 3 H&P: Results Labs Labs: Laboratory Tests 03/26/24 21:01 03/27/24 05:57 03/26/24 03/26/24 03/26/24 20:14 21:01 21:23 WBC 9.2 RBC 4.11 L Hgb 11.6 L Hct 38.1 MCV 92.7 MCH 28.2 MCHC 30.4 L RDW 14.9 H Plt Count 212 MPV 10.4 Immature Gran % (Auto) 0.5 Neut % (Auto) 79.4 H Lymph % (Auto) 14.4 L [place] % (Auto) 5.3 Eos % (Auto) 0.2 Baso % (Auto) 0.2 Lymph # (Auto) 1.32 [place] # (Auto) 0.5 Eos # (Auto) 0.0 Baso # (Auto) 0.0 Abs Immat Gran (auto) 0.05 H Absolute Neuts (auto) 7.3 H Absolute Nucleated RBC 0.000 Nucleated RBC % 0.0 PT 14.8 H INR 1.1 APTT 29.5 VBG pH 7.556 H* VBG pCO2 39.7 L VBG pO2 95.9 H VBG HCO3 34.4 H O2 Delivery Device Not Reportable O2 Liters/Min Not Reportable FiO2 21 Sodium 141 Potassium 3.8 Chloride 99 Carbon Dioxide 39 H Anion Gap 3 L BUN 16 Creatinine 0.50 L Estim Creat Clear Calc Not Reportable Estimated GFR > 60 Glucose 155 H POC Capillary Glucose Lactic Acid 2.3 H Calcium 8.3 L Phosphorus 3.1 Magnesium 2.1 Total Bilirubin 0.4 AST 51 H ALT 44 H Alkaline Phosphatase 101 Troponin I < 0.012 NT-Pro-B Natriuret Pep 256 H Total Protein 6.0 L Albumin 3.8 Lipase 121 TSH (Reflex) 1.490 Urine Color Urine Appearance Urine pH Ur Specific [place] Urine Protein Urine Glucose (UA) Urine Ketones Ur Blood (Man) Urine Nitrate Urine Bilirubin Urine Urobilinogen Add Ur Microanalysis Leukocyte Esterase Rfl Urine RBC Urine WBC Ur Squamous Epith Cells Urine Bacteria Urine Casts Urine Mucus Urine Yeast (Budding) Nasal MRSA (PCR) Influenza A (RT-PCR) Negative Influenza B (RT-PCR) Negative RSV (RT-PCR) Negative SARS-CoV-2 RNA (RT-PCR) Negative 03/26/24 03/26/24 03/27/24 23:16 23:37 01:19 WBC RBC Hgb Hct MCV MCH MCHC RDW Plt Count MPV Immature Gran % (Auto) Neut % (Auto) Lymph % (Auto) [place] % (Auto) Eos % (Auto) Baso % (Auto) Lymph # (Auto) [place] # (Auto) Eos # (Auto) Baso # (Auto) Abs Immat Gran (auto) Absolute Neuts (auto) Absolute Nucleated RBC Nucleated RBC % PT INR APTT VBG pH VBG pCO2 VBG pO2 VBG HCO3 O2 Delivery Device O2 Liters/Min FiO2 Sodium Potassium Chloride Carbon Dioxide Anion Gap BUN Creatinine Estim Creat Clear Calc Estimated GFR Glucose POC Capillary Glucose Lactic Acid 3.4 H Calcium Phosphorus Magnesium Total Bilirubin AST ALT Alkaline Phosphatase Troponin I < 0.012 NT-Pro-B Natriuret Pep Total Protein Albumin Lipase TSH (Reflex) Urine Color Yellow Urine Appearance Cloudy H Urine pH 6.0 Ur Specific [place] 1.030 Urine Protein Trace Urine Glucose (UA) 2+ H Urine Ketones Trace H Ur Blood (Man) Negative Urine Nitrate Positive H Urine Bilirubin Negative Urine Urobilinogen 0.2 Add Ur Microanalysis Reviewed Leukocyte Esterase Rfl 1+ H Urine RBC 0-2 Urine WBC 21-50 H Ur Squamous Epith Cells None seen Urine Bacteria 4+ H Urine Casts 3-5 Urine Mucus Present Urine Yeast (Budding) Present H Nasal MRSA (PCR) Not detected Influenza A (RT-PCR) Influenza B (RT-PCR) RSV (RT-PCR) SARS-CoV-2 RNA (RT-PCR) 03/27/24 03/27/24 02:51 05:57 WBC RBC Hgb Hct MCV MCH MCHC RDW Plt Count MPV Immature Gran % (Auto) Neut % (Auto) Lymph % (Auto) [place] % (Auto) Eos % (Auto) Baso % (Auto) Lymph # (Auto) [place] # (Auto) Eos # (Auto) Baso # (Auto) Abs Immat Gran (auto) Absolute Neuts (auto) Absolute Nucleated RBC Nucleated RBC % PT INR APTT VBG pH VBG pCO2 VBG pO2 VBG HCO3 O2 Delivery Device O2 Liters/Min FiO2 Sodium Potassium Chloride Carbon Dioxide Anion Gap BUN Creatinine 0.60 L Estim Creat Clear Calc 88 Estimated GFR > 60 Glucose POC Capillary Glucose 235 H Lactic Acid Calcium Phosphorus Magnesium Total Bilirubin AST ALT Alkaline Phosphatase Troponin I NT-Pro-B Natriuret Pep Total Protein Albumin Lipase TSH (Reflex) Urine Color Urine Appearance Urine pH Ur Specific [place] Urine Protein Urine Glucose (UA) Urine Ketones Ur Blood (Man) Urine Nitrate Urine Bilirubin Urine Urobilinogen Add Ur Microanalysis Leukocyte Esterase Rfl Urine RBC Urine WBC Ur Squamous Epith Cells Urine Bacteria Urine Casts Urine Mucus Urine Yeast (Budding) Nasal MRSA (PCR) Influenza A (RT-PCR) Influenza B (RT-PCR) RSV (RT-PCR) SARS-CoV-2 RNA (RT-PCR) Impressions Chest X-Ray 03/26/24 21:12 (personally reviewed and interpreted) IMPRESSION: 1. Emphysema. EKG: Personally reviewed interpreted. Cardiology interpretation pending. Demonstrates sinus rhythm rate of 62 possible right interventricular conduction delay possible septal MT indeterminate age interpretation affected by baseline artifact in multiple leads but EKG largely unchanged Assessment and Plan Assessment and plan (1) Pneumonia: Qualifiers: Laterality: unspecified laterality Lung location: unspecified part of lung Pneumonia type: due to unspecified organism Qualified Code(s): J18.9 - Pneumonia, unspecified organism Code(s): J18.9 - Pneumonia, unspecified organism Status: Acute (2) COPD (chronic obstructive pulmonary disease): Qualifiers: COPD type: COPD with acute lower respiratory infection Qualified Code(s): J44.0 - Chronic obstructive pulmonary disease with (acute) lower respiratory infection Code(s): J44.9 - Chronic obstructive pulmonary disease, unspecified Status: Acute (3) Chronic constipation: Code(s): K59.09 - Other constipation Status: Acute (4) Chronic anticoagulation: Code(s): Z79.01 - oil heaterman (current) use of anticoagulants Status: Acute (5) Chronic hypoxic respiratory failure, on home oxygen therapy: Code(s): J96.11 - Chronic respiratory failure with hypoxia; Z99.81 - Dependence on supplemental oxygen Status: Acute Plan Patient has chronic hypoxic respiratory failure due to COPD is currently co mplicated by probable pneumonia. Patient is having significant what sounds like purulence sputum production subjective fevers and progressive symptoms. Her lung exam demonstrates a bilateral wheezing and marked crackles bilateral. She could simply have an acute bronchitis but will treat with antibiotics for presumed pneumonia. Held will obtain a urine in test for urine Legionella antigen and pneumococcal antigen. If patient can not produces decent sputum specimen will send for Gram stain and culture. Will place patient on CPT with Acapella and encourage good pulmonary toilet. Will place on scheduled nebulizer treatments. Patient did receive 1 dose of Solu-Medrol in the ER. Will place patient on oral prednisone. Will continue home oxygen. Patient has chronic tremor which is concerned for I will leave that her tremors in part due to tardive dyskinesia given her multiple psychiatric medications. Her underlying psychiatric disorders not specifically specified but I suspect she may have underlying bipolar disorder. Quality VTE Prophylaxis VTE prophylaxis: pharmacologic ordered (Continue home Eliquis) Hospitalist MIPS Advance Care Plan I have confirmed that the patient's Advanced Care Plan is present, code status is documented, or surrogate decision maker is listed in patient medical record.: Yes Medication Reconciliation I have utilized all available resources to obtain, update and review the patients current medications (includes all prescriptions, OTC, herbals, cannab is, and nutritional supplements).: Yes
[2024-03-27 07:44] LABS: Hematocrit 37.5 % (37.0-47.0); Immature Granulocyte Absolute 0.04 K/mm3 (0.00-0.031); Immature Granulocyte Percent A 0.5 % (0-0.5); Lymphocytes Absolute Auto 0.46 K/mm3 (0.9-3.2); Lymphocytes Percent Auto 6.1 % (18.3-44.2); Mean Corpuscular HGB Conc 29.3 g/dl (32-36); Mean Corpuscular Hemoglobin 27.6 pg (26-34); Mean Platelet Volume 10.3 fl (7.4-10.4); Monocytes Absolute Auto 0.1 K/mm3 (0.1-0.6); Monocytes Percent Auto 1.9 % (2.6-8.5); Neutrophils Absolute Auto 6.9 K/mm3 (1.3-6.7); Neutrophils Percent Auto 91.5 % (45.5-73.1); Platelet Count Result 172 k/mm3 (150-375); Red Blood Count 3.99 M/mm3 (4.2-5.4); Red Cell Distribution Width 15.1 % (11.5-14.5); White Blood Count 7.6 K/mm3 (4.5-10.0)
[2024-03-27 07:55] LABS: Alanine Aminotransferase 37 U/L (6-35); Albumin Level 3.4 g/dL (3.5-5.1); Alkaline Phosphatase 88 U/L (38-126); Anion Gap 7 mmol/L (4-12); Aspartate Amino Transferase 38 U/L (14-36); Bilirubin,Total 0.4 mg/dL (0.2-1.3); Blood Urea Nitrogen 17 mg/dL (7-17); Calcium 8.4 mg/dL (8.4-10.2); Carbon Dioxide 30 mmol/L (22-30); Chloride 105 mmol/L (98-107); Estimated CRCL calculation 88 ml/min; Estimated Glomerular Filt Rate > 60; Glucose 261 mg/dL (65-110); Lactic Acid Reflex 3.3 mmol/L (0.7-2.0); Potassium 3.9 mmol/L (3.4-5.0); Sodium 142 mmol/L (137-145)
[2024-03-27 08:16] LABS: Glucose Point of Care 258 mg/dl (65-105)
[2024-03-27 09:37] LABS: Platelet Estimate Adequate (Adequate); Target Cells 2+
[2024-03-27 09:39] LABS: Schistocytes None Seen
[2024-03-27] MEDS: CHOLECALCIFEROL 1,000 UNITS TABLET 2000 UNITS PO (09:56)
[2024-03-27] MEDS: GABAPENTIN 300 MG CAPSULE 600 MG PO ×3 (09:57→18:19)
[2024-03-27] MEDS: LOSARTAN POTASSIUM 12.5 MG TABLET PO (09:57)
[2024-03-27] MEDS: ARIPiprazole 5 MG TABLET PO (09:57)
[2024-03-27] MEDS: PANTOPRAZOLE 40 MG TABLET PO (09:57)
[2024-03-27] MEDS: APIXABAN 5 MG TABLET PO ×2 (09:57→20:33)
[2024-03-27] MEDS: PRIMIDONE 50 MG TABLET PO ×2 (09:57→18:19)
[2024-03-27] MEDS: PYRIDOXINE HCL 25 MG TABLET PO (09:57)
[2024-03-27] MEDS: SENNOSIDES 8.6 MG TABLET PO ×2 (09:57→18:19)
[2024-03-27] MEDS: ARIPiprazole 2 MG TABLET PO (09:57)
[2024-03-27] MEDS: THERAPEUTIC MULTIVITAMINS/MINERALS TAB (*BKC) 1 TABLET PO (09:57)
[2024-03-27] MEDS: METOPROLOL TARTRATE 12.5 MG TABLET PO ×2 (09:57→20:33)
[2024-03-27] MEDS: MEMANTINE 10 MG TABLET PO ×2 (09:57→20:33)
[2024-03-27] MEDS: ESCITALOPRAM OXALATE 10 MG TABLET 20 MG PO (09:57)
[2024-03-27] MEDS: busPIRone HCL 10 MG TABLET PO ×3 (09:57→18:19)
[2024-03-27] MEDS: FUROSEMIDE 40 MG TABLET PO (09:57)
[2024-03-27] MEDS: AMIODARONE HCL 200 MG TABLET PO ×2 (09:58→18:23)
[2024-03-27] MEDS: polyethylene glycoL 3350 17 GM POWD.PACK PO (09:58)
[2024-03-27] MEDS: TAMOXIFEN CITRATE (*CHEMO) 10 MG TABLET 20 MG PO (09:58)
[2024-03-27] MEDS: CEFEPIME 2 GM/NS 50 ML 2 GM/50 ML BAG IVPB ×2 (09:58→21:01)
[2024-03-27] MEDS: CYANOCOBALAMIN 250 MCG TABLET PO (09:59)
[2024-03-27] MEDS: INSULIN ASPART (*BKC) 100 UNITS/ML SUB-Q ×4 (09:59→20:38)
[2024-03-27 11:49] LABS: Glucose Point of Care 242 mg/dl (65-105)
--- NOTE | 2024-03-27 12:01 | P.PNIM_ITS ---
Progress Note: A&P Assessment and Plan (1) Pneumonia: Qualifiers: Laterality: unspecified laterality Lung location: unspecified part of lung Pneumonia type: due to unspecified organism Qualified Code(s): J18.9 - Pneumonia, unspecified organism Code(s): J18.9 - Pneumonia, unspecified organism Status: Acute Assessment and Plan: * Patient has chronic hypoxic respiratory failure due to COPD is currently complicated by probable pneumonia. Patient is having significant what sounds like purulence sputum production subjective fevers and progressive symptoms. * Her lung exam demonstrates a bilateral wheezing and marked crackles bilateral on admission. Diminished at present. She could simply have an acute bronchitis but will treat with antibiotics for presumed pneumonia. * 02@3LNC which is patients baseline. * Cefepime 2 gram IVPB q12 and Vancomycin 1,500 mg IVPB q 12. * Urine test for urine Legionella antigen and pneumococcal antigen pending. * Lactic acid: 2.3>3.4>3.3>4.0>1.7 (2) COPD (chronic obstructive pulmonary disease): Qualifiers: COPD type: COPD with acute lower respiratory infection Qualified Code(s): J44.0 - Chronic obstructive pulmonary disease with (acute) lower respiratory infection Code(s): J44.9 - Chronic obstructive pulmonary disease, unspecified Status: Acute Assessment and Plan: * Will place patient on CPT with Acapella and encourage good pulmonary toilet. * Will place on scheduled nebulizer treatments-Ipratropium * Patient did receive 1 dose of Solu-Medrol in the ER. * Will place patient on oral prednisone 50 mg PO daily x 5 days starting to peguero. * Will continue home oxygen. (3) Chronic constipation: Code(s): K59.09 - Other constipation Status: Acute Assessment and Plan: * Colace enema given- patient had 2 normal bowel movements per nurse. * Miralax 17 gm PO daily and Senna 8.6 mg PO BID. * Monitor stools and record. (4) Chronic anticoagulation: Code(s): Z79.01 - custodial (current) use of anticoagulants Status: Acute Assessment and Plan: * Apixaban 5 mg PO q 12. (5) Chronic hypoxic respiratory failure, on home oxygen therapy: Code(s): J96.11 - Chronic respiratory failure with hypoxia; Z99.81 - Dependence on supplemental oxygen Status: Acute Assessment and Plan: * 02@3LNC at home. Subjective Date/time seen: 03/27/24 12:01 Interval history: Patient reports shortness of breath at rest at times and with exertion. Patient states that she is feeling much better. Patient reports chest is sore from coughing. Patient denies palpitations, dizziness, nausea, or vomiting. Patient reports a headache that is a 3 , frequent, and aching. Patient is unsure when her last bowel movement was, patient denies abdominal pain. Review of Systems Review of Systems: All systems reviewed & are unremarkable except as noted in HPI and below Exam Const: General: no acute distress and uncomfortable Eyes: Sclera: sclerae normal Resp: Effort & Inspection: normal respiratory effort Auscultation: diminished lung sounds Other: O2@3 liters nasal cannula, home rate. Cardio: Rate: regular rate Rhythm: regular rhythm GI: GI Palp: Yes Soft to palpation Other: Obese, hypoactive bowel sounds. Skin: General skin exam: no rashes or lesions noted Neuro: Speech: normal speech Extrem: General: no pedal edema Psych: Affect: normal affect Objective Data Vital Signs Vital Signs: Vital Signs - 24 hr 03/26/24 19:05 03/26/24 20:16 03/26/24 21:21 Temperature 97.8 F Pulse Rate 68 64 64 Respiratory Rate 16 13 15 Blood Pressure 102/59 L 98/80 L Pulse Oximetry 100 99 Oxygen Delivery Oxygen Flow Rate 03/26/24 22:34 03/26/24 21:39 03/26/24 22:45 Temperature Pulse Rate 66 79 Respiratory Rate 17 15 Blood Pressure Pulse Oximetry 98 97 95 Oxygen Delivery Nasal Cannula Oxygen Flow Rate 3 03/26/24 23:43 03/27/24 01:44 03/27/24 02:44 Temperature 98.5 F 98.1 F Pulse Rate 71 71 Respiratory Rate 14 18 Blood Pressure 115/65 125/62 Pulse Oximetry 98 98 Oxygen Delivery Oxygen Flow Rate 03/27/24 03:37 03/27/24 03:00 03/27/24 04:00 Temperature 98.2 F Pulse Rate 119 H 64 68 Respiratory Rate 18 Blood Pressure 130/60 Pulse Oximetry 93 93 Oxygen Delivery Nasal Cannula Oxygen Flow Rate 3 03/27/24 04:00 03/27/24 06:00 03/27/24 08:31 Temperature 98.0 F 98.0 F Pulse Rate 100 99 Respiratory Rate 18 18 Blood Pressure 132/58 L Pulse Oximetry 95 94 98 Oxygen Delivery Nasal Cannula Oxygen Flow Rate 3 03/27/24 08:00 03/27/24 09:57 03/27/24 09:58 Temperature 97.2 F L Pulse Rate 65 70 70 Respiratory Rate 18 Blood Pressure 116/67 Pulse Oximetry 100 Oxygen Delivery Oxygen Flow Rate 03/27/24 08:00 03/27/24 10:00 Temperature Pulse Rate 63 Respiratory Rate Blood Pressure Pulse Oximetry 95 Oxygen Delivery Nasal Cannula Oxygen Flow Rate 3 Intake/Output Intake/Output: Intake & Output 03/24/24 03/25/24 03/26/24 03/27/24 23:59 23:59 23:59 23:59 Intake Total 150 1740 Balance 150 1740 Meds/Results Medications: Active Medications Generic Name Dose Route Start Last Admin Trade Name Freq PRN Reason Stop Dose Admin Acetaminophen 500 mg 03/27/24 07:16 Acetaminophen 500 Mg Tablet PO Q6H PRN Mild Pain (1-3) or Fever Al Hydrox/Mg Hydrox/Simethicone 5 ml 03/27/24 07:14 Mag Hydrox/Al Hydrox/Simeth 30 Ml Udc PO Q6H PRN Heartburn Amiodarone HCl 200 mg 03/27/24 09:00 03/27/24 09:58 Amiodarone Hcl 200 Mg Tablet PO 200 mg BID NICOLE Administration Apixaban 5 mg 03/27/24 09:00 03/27/24 09:57 Apixaban 5 Mg Tablet PO 5 mg Q12HR NICOLE Administration Aripiprazole 5 mg 03/27/24 09:00 03/27/24 09:57 Aripiprazole 5 Mg Tablet PO 5 mg DAILY NICOLE Administration Aripiprazole 2 mg 03/27/24 09:00 03/27/24 09:57 Aripiprazole 2 Mg Tablet PO 2 mg DAILY NICOLE Administration Buspirone HCl 10 mg 03/27/24 09:00 03/27/24 09:57 Buspirone Hcl 10 Mg Tablet PO 10 mg TID NICOLE Administration Calcium Carbonate 400 mg 03/27/24 07:14 Calcium Carbonate (Tums) 500 Mg (200 Mg Elemental) PO Q8H PRN Heartburn Cyanocobalamin 250 mcg 03/27/24 09:00 03/27/24 09:59 Cyanocobalamin 250 Mcg Tablet PO 250 mcg DAILY NICOLE Administration Dextrose 12.5 gm 03/27/24 07:19 Dextrose 50% 25 Gm/50 Ml Syringe IV PUSH PRN PRN Hypoglycemia Protocol Escitalopram Oxalate 20 mg 03/27/24 09:00 03/27/24 09:57 Escitalopram Oxalate 10 Mg Tablet PO 20 mg DAILY NICOLE Administration Ferrous Sulfate 325 mg 03/27/24 09:00 03/27/24 09:59 Ferrous Sulfate [address] PO 04/26/24 08:59 Not Given DAILY NICOLE Furosemide 40 mg 03/27/24 09:00 03/27/24 09:57 Furosemide 40 Mg Tablet PO 40 mg DAILY NICOLE Administration Gabapentin 600 mg 03/27/24 09:00 03/27/24 09:57 Gabapentin 300 Mg Capsule PO 600 mg TID NICOLE Administration Glucagon 1 mg 03/27/24 07:19 Glucagon For Inj 1 Mg Vial IM PRN PRN Hypoglycemia Protocol Glucose 15 gm 03/27/24 07:19 Glucose Oral Gel 15 Gm Of Glucse In 37.5 Gm Tube PO PRN PRN Hypoglycemia Protocol Vancomycin HCl 1,500 mg in 500 mls @ 250 mls/hr 03/27/24 12:00 Vancomycin 1,500 Mg/Ns 500 Ml IVPB Q12H NICOLE Cefepime HCl 2 gm in 50 mls @ 100 mls/hr 03/27/24 10:00 03/27/24 10:28 Maxipime 2 Gm/Ns 50 Ml IVPB Infused Q12H NICOLE Infusion Dextrose 1,000 mls @ 100 mls/hr 03/27/24 07:19 Dextrose 5% 1,000 Ml IVPB PRN PRN Hypoglycemia Protocol Insulin Aspart 3 - 6 units 03/27/24 08:00 03/27/24 09:59 Insulin Aspart (*Bkc) 100 Units/Ml SUB-Q 4 units TIDWM NICOLE Administration Protocol Insulin Aspart 1 - 3 units 03/27/24 21:00 Insulin Aspart (*Bkc) 100 Units/Ml SUB-Q HS NICOLE Protocol Lorazepam 0.5 mg 03/27/24 21:00 Lorazepam (*Crx) 0.5 Mg Tablet PO QHS NICOLE Losartan Potassium 12.5 mg 03/27/24 09:00 03/27/24 09:57 Losartan Potassium 12.5 Mg Tablet PO 12.5 mg DAILY NICOLE Administration Magnesium Hydroxide 30 ml 03/27/24 07:14 Magnesium Hydroxide Susp 30 Ml Udc PO Q6H PRN Constipation Memantine 10 mg 03/27/24 09:00 03/27/24 09:57 Memantine 10 Mg Tablet PO 10 mg Q12HR NICOLE Administration Metoprolol Tartrate 12.5 mg 03/27/24 09:00 03/27/24 09:57 Metoprolol Tartrate 12.5 Mg Tablet PO 12.5 mg Q12HR NICOLE Administration Multivitamins/Calcium 1 tablet 03/27/24 09:00 03/27/24 09:57 Therapeutic Multivitamins/Minerals Tab (*Bkc) PO 1 tablet DAILY NICOLE Administration Ondansetron HCl 4 mg 03/27/24 10:35 Ondansetron Inj 4 Mg/2 Ml Vial IV PUSH Q6HR PRN Nausea And Vomiting Pantoprazole Sodium 40 mg 03/27/24 09:00 03/27/24 09:57 Pantoprazole 40 Mg Tablet PO 40 mg QAM NICOLE Administration Polyethylene Glycol 17 gm 03/27/24 09:00 03/27/24 09:58 Polyethylene Glycol 3350 17 Gm Powd.Pack PO 17 gm QAM NICOLE Administration Primidone 50 mg 03/27/24 09:00 03/27/24 09:57 Primidone 50 Mg Tablet PO 50 mg BID NICOLE Administration Pyridoxine HCl 25 mg 03/27/24 09:00 03/27/24 09:57 Pyridoxine Hcl 25 Mg Tablet PO 25 mg DAILY NICOLE Administration Ropinirole HCl 0.5 mg 03/27/24 21:00 Ropinirole Hcl 0.5 Mg Tablet PO QHS NICOLE Senna 8.6 mg 03/27/24 09:00 03/27/24 09:57 Sennosides 8.6 Mg Tablet PO 8.6 mg BID NICOLE Administration Sodium Chloride 6 ml 03/28/24 05:00 Sodium Chlor 3% 15 Ml Neb (Respiratory Therapy) INHALATION 03/30/24 05:01 DAILY@0500 [facility] Tamoxifen Citrate 20 mg 03/27/24 09:00 03/27/24 09:58 Tamoxifen Citrate (*Chemo) 10 Mg Tablet PO 04/26/24 08:59 20 mg DAILY NICOLE Administration Tramadol HCl 50 mg 03/27/24 07:14 Tramadol Hcl (*Crx) 50 Mg Tablet PO QID PRN Pain 4-10 Trazodone HCl 50 mg 03/27/24 21:00 Trazodone Hcl 50 Mg Tablet PO QHS NICOLE Vitamin D 2,000 units 03/27/24 09:00 03/27/24 09:56 Cholecalciferol 1,000 Units Tablet PO 2,000 units DAILY NICOLE Administration Radiology Results: ITS Impressions Chest X-Ray 03/26/24 21:12 IMPRESSION: 1. Emphysema. Labs Labs: Laboratory Results - last 24 hr 03/26/24 03/26/24 03/26/24 20:14 21:01 21:23 WBC 9.2 RBC 4.11 L Hgb 11.6 L Hct 38.1 MCV 92.7 MCH 28.2 MCHC 30.4 L RDW 14.9 H Plt Count 212 MPV 10.4 Immature Gran % (Auto) 0.5 Neut % (Auto) 79.4 H Lymph % (Auto) 14.4 L [place] % (Auto) 5.3 Eos % (Auto) 0.2 Baso % (Auto) 0.2 Lymph # (Auto) 1.32 [place] # (Auto) 0.5 Eos # (Auto) 0.0 Baso # (Auto) 0.0 Abs Immat Gran (auto) 0.05 H Absolute Neuts (auto) 7.3 H Absolute Nucleated RBC 0.000 Nucleated RBC % 0.0 Platelet Estimate Target Cells Schistocytes PT 14.8 H INR 1.1 APTT 29.5 VBG pH 7.556 H* VBG pCO2 39.7 L VBG pO2 95.9 H VBG HCO3 34.4 H O2 Delivery Device Not Reportable O2 Liters/Min Not Reportable FiO2 21 Sodium 141 Potassium 3.8 Chloride 99 Carbon Dioxide 39 H Anion Gap 3 L BUN 16 Creatinine 0.50 L Estim Creat Clear Calc Not Reportable Estimated GFR > 60 Glucose 155 H POC Capillary Glucose Lactic Acid 2.3 H Calcium 8.3 L Phosphorus 3.1 Magnesium 2.1 Total Bilirubin 0.4 AST 51 H ALT 44 H Alkaline Phosphatase 101 Troponin I < 0.012 NT-Pro-B Natriuret Pep 256 H Total Protein 6.0 L Albumin 3.8 Lipase 121 TSH (Reflex) 1.490 Urine Color Urine Appearance Urine pH Ur Specific [place] Urine Protein Urine Glucose (UA) Urine Ketones Ur Blood (Man) Urine Nitrate Urine Bilirubin Urine Urobilinogen Add Ur Microanalysis Leukocyte Esterase Rfl Urine RBC Urine WBC Ur Squamous Epith Cells Urine Bacteria Urine Casts Urine Mucus Urine Yeast (Budding) Nasal MRSA (PCR) Influenza A (RT-PCR) Negative Influenza B (RT-PCR) Negative RSV (RT-PCR) Negative SARS-CoV-2 RNA (RT-PCR) Negative 03/26/24 03/26/24 03/27/24 23:16 23:37 01:19 WBC RBC Hgb Hct MCV MCH MCHC RDW Plt Count MPV Immature Gran % (Auto) Neut % (Auto) Lymph % (Auto) [place] % (Auto) Eos % (Auto) Baso % (Auto) Lymph # (Auto) [place] # (Auto) Eos # (Auto) Baso # (Auto) Abs Immat Gran (auto) Absolute Neuts (auto) Absolute Nucleated RBC Nucleated RBC % Platelet Estimate Target Cells Schistocytes PT INR APTT VBG pH VBG pCO2 VBG pO2 VBG HCO3 O2 Delivery Device O2 Liters/Min FiO2 Sodium Potassium Chloride Carbon Dioxide Anion Gap BUN Creatinine Estim Creat Clear Calc Estimated GFR Glucose POC Capillary Glucose Lactic Acid 3.4 H Calcium Phosphorus Magnesium Total Bilirubin AST ALT Alkaline Phosphatase Troponin I < 0.012 NT-Pro-B Natriuret Pep Total Protein Albumin Lipase TSH (Reflex) Urine Color Yellow Urine Appearance Cloudy H Urine pH 6.0 Ur Specific [place] 1.030 Urine Protein Trace Urine Glucose (UA) 2+ H Urine Ketones Trace H Ur Blood (Man) Negative Urine Nitrate Positive H Urine Bilirubin Negative Urine Urobilinogen 0.2 Add Ur Microanalysis Reviewed Leukocyte Esterase Rfl 1+ H Urine RBC 0-2 Urine WBC 21-50 H Ur Squamous Epith Cells None seen Urine Bacteria 4+ H Urine Casts 3-5 Urine Mucus Present Urine Yeast (Budding) Present H Nasal MRSA (PCR) Not detected Influenza A (RT-PCR) Influenza B (RT-PCR) RSV (RT-PCR) SARS-CoV-2 RNA (RT-PCR) 03/27/24 03/27/24 03/27/24 02:51 05:57 07:39 WBC 7.6 RBC 3.99 L Hgb 11.0 L Hct 37.5 MCV 94.0 MCH 27.6 MCHC 29.3 L RDW 15.1 H Plt Count 172 MPV 10.3 Immature Gran % (Auto) 0.5 Neut % (Auto) 91.5 H Lymph % (Auto) 6.1 L [place] % (Auto) 1.9 L Eos % (Auto) 0.0 Baso % (Auto) 0.0 L Lymph # (Auto) 0.46 L [place] # (Auto) 0.1 Eos # (Auto) 0.0 Baso # (Auto) 0.0 Abs Immat Gran (auto) 0.04 H Absolute Neuts (auto) 6.9 H Absolute Nucleated RBC 0.000 Nucleated RBC % 0.0 Platelet Estimate Adequate Target Cells 2+ Schistocytes None seen PT INR APTT VBG pH VBG pCO2 VBG pO2 VBG HCO3 O2 Delivery Device O2 Liters/Min FiO2 Sodium 142 Potassium 3.9 Chloride 105 Carbon Dioxide 30 Anion Gap 7 BUN 17 Creatinine 0.60 L 0.60 L Estim Creat Clear Calc 88 88 Estimated GFR > 60 > 60 Glucose 261 H POC Capillary Glucose 235 H Lactic Acid 3.3 H Calcium 8.4 Phosphorus Magnesium Total Bilirubin 0.4 AST 38 H ALT 37 H Alkaline Phosphatase 88 Troponin I NT-Pro-B Natriuret Pep Total Protein 6.0 L Albumin 3.4 L Lipase TSH (Reflex) Urine Color Urine Appearance Urine pH Ur Specific [place] Urine Protein Urine Glucose (UA) Urine Ketones Ur Blood (Man) Urine Nitrate Urine Bilirubin Urine Urobilinogen Add Ur Microanalysis Leukocyte Esterase Rfl Urine RBC Urine WBC Ur Squamous Epith Cells Urine Bacteria Urine Casts Urine Mucus Urine Yeast (Budding) Nasal MRSA (PCR) Influenza A (RT-PCR) Influenza B (RT-PCR) RSV (RT-PCR) SARS-CoV-2 RNA (RT-PCR) 03/27/24 03/27/24 08:11 11:45 WBC RBC Hgb Hct MCV MCH MCHC RDW Plt Count MPV Immature Gran % (Auto) Neut % (Auto) Lymph % (Auto) [place] % (Auto) Eos % (Auto) Baso % (Auto) Lymph # (Auto) [place] # (Auto) Eos # (Auto) Baso # (Auto) Abs Immat Gran (auto) Absolute Neuts (auto) Absolute Nucleated RBC Nucleated RBC % Platelet Estimate Target Cells Schistocytes PT INR APTT VBG pH VBG pCO2 VBG pO2 VBG HCO3 O2 Delivery Device O2 Liters/Min FiO2 Sodium Potassium Chloride Carbon Dioxide Anion Gap BUN Creatinine Estim Creat Clear Calc Estimated GFR Glucose POC Capillary Glucose 258 H 242 H Lactic Acid Calcium Phosphorus Magnesium Total Bilirubin AST ALT Alkaline Phosphatase Troponin I NT-Pro-B Natriuret Pep Total Protein Albumin Lipase TSH (Reflex) Urine Color Urine Appearance Urine pH Ur Specific [place] Urine Protein Urine Glucose (UA) Urine Ketones Ur Blood (Man) Urine Nitrate Urine Bilirubin Urine Urobilinogen Add Ur Microanalysis Leukocyte Esterase Rfl Urine RBC Urine WBC Ur Squamous Epith Cells Urine Bacteria Urine Casts Urine Mucus Urine Yeast (Budding) Nasal MRSA (PCR) Influenza A (RT-PCR) Influenza B (RT-PCR) RSV (RT-PCR) SARS-CoV-2 RNA (RT-PCR) Quality VTE Prophylaxis VTE prophylaxis: pharmacologic ordered (Continue home Eliquis)
[2024-03-27] MEDS: VANCOMYCIN 1,500 MG/NS 500 ML 1,500 MG/500 ML BAG 250 MG IVPB ×2 (12:20→23:05)
[2024-03-27] MEDS: DOCUSATE SODIUM 400 MG/400 ML ENEMA RECTAL (12:21)
[2024-03-27] MEDS: ACETAMINOPHEN 500 MG TABLET PO (12:21)
[2024-03-27 16:16] LABS: Reflex Lactic Acid Yes or No Add Lactic
[2024-03-27 16:48] LABS: Lactic Acid 1.7 mmol/L (0.7-2.0)
[2024-03-27 17:30] LABS: Glucose Point of Care 228 mg/dl (65-105)
[2024-03-27] MEDS: IPRATROPIUM BR 0.02% INH SOLN 0.5 MG/2.5 ML VIAL INHALATION (20:20)
[2024-03-27] MEDS: LORazepam (*CRX) 0.5 MG TABLET PO (20:33)
[2024-03-27] MEDS: rOPINIRole HCL 0.5 MG TABLET PO (20:33)
[2024-03-27] MEDS: guaiFENesin 12 HR 600 MG TABCR PO (20:33)
[2024-03-27] MEDS: traZODone HCL 50 MG TABLET PO (20:33)
[2024-03-27 20:40] LABS: Glucose Point of Care 247 mg/dl (65-105)
[2024-03-28] VITALS (27 sets, daily range): BP systolic 70–133; BP diastolic 40–75; PULSE 45–97; RESP 8–20; TEMP 36.4–36.8; O2SAT 91–100
--- NOTE | 2024-03-28 | ECHO_ITS ---
Patient Info Name: Marleni Mcgrath Age: 73 years : 1950 Gender: Female Ht: 67 in Wt: 234 lbs BSA: 2.28 m2 HR: 69 bpm BP: 101 / 48 mmHg Technical Quality: Poor Exam Date: 03/28/2024 3:39 PM Exam Location: Echo Lab Patient Status: Inpatient Admit Date: 03/27/2024 Staff Ordering Physician: Becky Villa Non Destructive Testing Technician: Gutierrez Gillespie RDCS Attending Provider: Anaya Castle DO Referring Physician: Daisy RAWLS; Exam Type: CA echo limited w contrast Study Info Indications - CARDIOMYOPATHY Limited two-dimensional transthoracic echocardiogram is performed with contrast. Contrast/Agitated Saline Contrast/Ag. Saline: Definity Amount: 2.00 ml Existing IV Access: Yes Reason for Poor Study: poor echocardiographic windows Summary 1. Very technically difficult study with limited views. 2. Left ventricular systolic function is normal, estimated at 65-70%. 3. Right ventricular systolic function is normal. 4. There is mild mitral valve regurgitation. Left Ventricle Left ventricular chamber dimension is normal. Left ventricular systolic function is normal, estimated at 65-70%. Right Ventricle Right ventricular chamber dimension is normal. Right ventricular systolic function is normal. Left Atria Left atrial chamber dimension is not well visualized. Right Atria Right atrial chamber dimension is not well visualized. Aortic Valve There is no aortic valve regurgitation. Pulmonic Valve The pulmonic valve is not well visualized. Mitral Valve There is mild mitral valve regurgitation. Tricuspid Valve There is trace tricuspid valve regurgitation. Pericardium/Pleural There is no pericardial effusion. Inferior Vena Cava Inferior vena cava is not well visualized. Aorta The aortic root size at the sinus of Valsalva is not well visualized. Ventricles Name Value Normal LV Dimensions 2D/MM IVS Diastolic Thickness (2D) 1.5 cm 0.6-1.0 LVID Diastole (2D) 3.4 cm 3.8-5.2 LVIW Diastolic Thickness (2D) 2.1 cm 0.6-0.9 LVID Systole (2D) 2.7 cm 2.2-3.5 LV Mass (2D Cubed) 254.66 g 67.00-162.00 LV Mass Index (2D Cubed) 111 g/m2 43-95 Relative Wall Thickness (2D) 1.24 LV Fractional Shortening/Ejection Fraction 2D/MM LV Fractional Shortening (2D) 22 % 27-45 LV EF (2D Teicholz) 46 % 54-74 LV Diastolic Volume (4C MOD) 88 ml LV EF (4C MOD) 65 % LV Diastolic Volume (2C MOD) 54 ml LV EF (2C MOD) 14 % LV Diastolic Volume (BP MOD) 73 ml 46-106 LV Diastolic Volume Index (BP MOD) 32 ml/m2 29-61 LV Systolic Volume (BP MOD) 38 ml 14-42 LV Systolic Volume Index (BP MOD) 17 ml/m2 8-24 LV EF (BP MOD) 48 % 54-74 LV Diastolic Length (4C) 8.1 cm LV Systolic Length (4C) 6.1 cm LV Stroke Volume (4C MOD) 57 ml Report Signatures
[2024-03-28] MEDS: IPRATROPIUM BR 0.02% INH SOLN 0.5 MG/2.5 ML VIAL INHALATION ×4 (01:13→19:38)
[2024-03-28] MEDS: SODIUM CHLOR 3% 15 ML NEB (RESPIRATORY THERAPY) 6 ML INHALATION (05:17)
[2024-03-28 05:18] LABS: Basophils Percent Auto 0.2 % (0.2-1.2); Eosinophils Percent Auto 0.5 % (0-4.4); Hematocrit 37.1 % (37.0-47.0); Hemoglobin 10.9 g/dL (12.0-15.0); Immature Granulocyte Absolute 0.04 K/mm3 (0.00-0.031); Immature Granulocyte Percent A 0.5 % (0-0.5); Lymphocytes Absolute Auto 1.83 K/mm3 (0.9-3.2); Lymphocytes Percent Auto 21.6 % (18.3-44.2); Mean Corpuscular HGB Conc 29.4 g/dl (32-36); Mean Corpuscular Hemoglobin 27.7 pg (26-34); Mean Corpuscular Volume 94.4 fl (80-100); Mean Platelet Volume 10.4 fl (7.4-10.4); Monocytes Absolute Auto 0.4 K/mm3 (0.1-0.6); Monocytes Percent Auto 4.7 % (2.6-8.5); Neutrophils Absolute Auto 6.1 K/mm3 (1.3-6.7); Neutrophils Percent Auto 72.5 % (45.5-73.1); Platelet Count Result 179 k/mm3 (150-375); Red Blood Count 3.93 M/mm3 (4.2-5.4); Red Cell Distribution Width 15.3 % (11.5-14.5); White Blood Count 8.5 K/mm3 (4.5-10.0)
[2024-03-28 05:37] LABS: Alanine Aminotransferase 38 U/L (6-35); Albumin Level 3.3 g/dL (3.5-5.1); Alkaline Phosphatase 72 U/L (38-126); Anion Gap 0 mmol/L (4-12); Aspartate Amino Transferase 44 U/L (14-36); Bilirubin,Total 0.3 mg/dL (0.2-1.3); Blood Urea Nitrogen 20 mg/dL (7-17); Calcium 8.5 mg/dL (8.4-10.2); Carbon Dioxide 36 mmol/L (22-30); Chloride 103 mmol/L (98-107); Estimated CRCL calculation 76 ml/min; Estimated Glomerular Filt Rate > 60; Glucose 122 mg/dL (65-110); Potassium 3.7 mmol/L (3.4-5.0); Sodium 139 mmol/L (137-145)
[2024-03-28 05:48] LABS: Anisocytosis 1+; Platelet Estimate Adequate (Adequate); Schistocytes None Seen
--- NOTE | 2024-03-28 05:57 | PC.NURSE ---
Beginning of shift at 1999, patient had urinary output from purewick total 250ml. At 0000, patient did not have any output at that time. Purewick tubing and canister checked for any kinks to prevent patency. At 0400, patient still did know show any output in canister, depend was not saturated. Bladder scanner was performed showing 241ml in bladder. Dr. Castle, gave orders for straight cath Q6H PRN. If output in bladder is more than 350 then straight cath. Will continue to monitor input and output.
[2024-03-28 07:48] LABS: Glucose Point of Care 173 mg/dl (65-105)
[2024-03-28] MEDS: ESCITALOPRAM OXALATE 10 MG TABLET 20 MG PO (09:19)
[2024-03-28] MEDS: CYANOCOBALAMIN 250 MCG TABLET PO (09:19)
[2024-03-28] MEDS: GABAPENTIN 300 MG CAPSULE 600 MG PO ×3 (09:19→17:39)
[2024-03-28] MEDS: predniSONE 40 MG, predniSONE 10 MG 50 MG PO (09:19)
[2024-03-28] MEDS: CHOLECALCIFEROL 1,000 UNITS TABLET 2000 UNITS PO (09:19)
[2024-03-28] MEDS: guaiFENesin 12 HR 600 MG TABCR PO ×2 (09:19→21:05)
[2024-03-28] MEDS: THERAPEUTIC MULTIVITAMINS/MINERALS TAB (*BKC) 1 TABLET PO (09:20)
[2024-03-28] MEDS: PRIMIDONE 50 MG TABLET PO ×2 (09:20→17:39)
[2024-03-28] MEDS: busPIRone HCL 10 MG TABLET PO ×3 (09:20→17:39)
[2024-03-28] MEDS: PANTOPRAZOLE 40 MG TABLET PO (09:20)
[2024-03-28] MEDS: FUROSEMIDE 40 MG TABLET PO (09:20)
[2024-03-28] MEDS: PYRIDOXINE HCL 25 MG TABLET PO (09:20)
[2024-03-28] MEDS: FERROUS SULFATE 325 MG TABLET DR PO (09:20)
[2024-03-28] MEDS: TAMOXIFEN CITRATE (*CHEMO) 10 MG TABLET 20 MG PO (09:20)
[2024-03-28] MEDS: APIXABAN 5 MG TABLET PO ×2 (09:20→21:06)
[2024-03-28] MEDS: LOSARTAN POTASSIUM 12.5 MG TABLET PO (09:20)
[2024-03-28] MEDS: MEMANTINE 10 MG TABLET PO ×2 (09:20→21:06)
[2024-03-28] MEDS: ARIPiprazole 2 MG TABLET PO (09:20)
[2024-03-28] MEDS: SENNOSIDES 8.6 MG TABLET PO ×2 (09:20→17:39)
[2024-03-28] MEDS: ARIPiprazole 5 MG TABLET PO (09:20)
[2024-03-28] MEDS: polyethylene glycoL 3350 17 GM POWD.PACK PO (09:21)
[2024-03-28] MEDS: AMIODARONE HCL 200 MG TABLET PO ×2 (09:30→17:39)
[2024-03-28] MEDS: CEFEPIME 2 GM/NS 50 ML 2 GM/50 ML BAG IVPB ×2 (09:31→21:06)
[2024-03-28 11:45] LABS: Glucose Point of Care 184 mg/dl (65-105)
--- NOTE | 2024-03-28 12:03 | P.CONCA_ITS ---
Assessment and Plan Assessment and plan (1) Atrial fibrillation: Code(s): I48.91 - Unspecified atrial fibrillation Status: Acute Assessment and Plan: In sinus rhythm on amiodarone. I do not appreciate any significant bradycardia or pauses on telemetry, therefore do not recommend any medication changes at thi s time. If any significant bradycardia is seen, would recommend decreasing metoprolol dose (2) Systolic dysfunction: Code(s): I51.9 - Heart disease, unspecified Status: Acute Assessment and Plan: EF 35% in December 2023 with possible Takotsubo etiology. Will repeat a limited echo to assess LV function now. Not in decompensated heart failure c urrently. 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 Continue Eliquis 5mg b.i.d. (4) Pneumonia: Qualifiers: Laterality: unspecified laterality Lung location: unspecified part of lung Pneumonia type: due to unspecified organism Qualified Code(s): J18.9 - Pneumonia, unspecified organism Code(s): J18.9 - Pneumonia, unspecified organism Status: Acute Assessment and Plan: Abx and management per hospitlist. Plan No active cardiac problems at this time. Cardiology will sign off. Please call with questions. History of Present Illness History of Present Illness Consult date/time: 03/28/24 12:03 Requesting physician: Cortney Aponte APRN Consult reason: atrial fibrillation and Other (bradycardia) Reason For Visit: PNA Narrative: Kayla Mcgrath is a 73 year old female with history of atrial fibrillation managed with amiodarone. During her last hospitalization at this hospital in December she was also found to have LV dysfunction with an EF of 35%. 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 She enters the hospital with complaints of shortness of breath, chest discomfort, and cough for two weeks. She has been found to have pneumonia and is being treated for that. Cardiology is consulted for bradycardia, history of atrial fibrillation, and medication management. Review of Systems Review of Systems: All systems reviewed & are unremarkable except as noted in HPI and below PMFSH Past Medical History Medical History Anxiety and depression Breast cancer With history of radiation therapy and chemotherapy CHF (congestive heart failure) Cholelithiasis Chronic anticoagulation Chronic constipation Chronic hypoxic respiratory failure, on home oxygen therapy Cirrhosis Closed fracture of left proximal humerus Compression fracture of L1 vertebra COPD (chronic obstructive pulmonary disease) Dementia Mild Diabetes Dysphagia Essential tremor Iron deficiency anemia Portal hypertensive gastropathy Psychosis Patient has had a history of hallucinations/psychosis she is on Abilify. It is unclear for psychosis is due to dementia with psychosis verses depression with psychosis or history of possible underlying bipolar patient is not able to provide the details Restless leg syndrome T12 burst fracture Type 2 diabetes mellitus treated with insulin Surgical History Surgical History History of bilateral mastectomy History of colonoscopy with polypectomy Family History Family History Other Unknown family medical history Social History Social History Smoking packs per day: 1 Smoking cigarettes per day: 20.0 Years smoked: 50 Smoking pack-years: 50.00 Smoking status: Former smoker Second hand tobacco smoke exposure: No Alcohol intake: never Substance use: never Do You Feel Safe in your Home?: Yes Lack of Transportation: No Lack of Food: Never True Current Housing: I Have Housing Concerned About Future Housing: No Difficulty Paying Gas/Electric Bills: No Difficulty Paying for Meds: No Currently Unemployed: No Education: High School Diploma/GED Difficulty w/ Childcare or Family Care: No Spiritual care concerns: No Meds Home Medications and Allergies Home Medications Medication Instructions Recorded Confirmed Type acetaminophen 650 mg tablet 650 mg PO TID 10/28/23 03/27/24 History albuterol sulfate 90 mcg/actuation 2 puff inhalation Q4H PRN 10/28/23 03/27/24 History aerosol inhaler Shortness Of Breath Or Wheezing aripiprazole 2 mg tablet 2 mg PO DAILY 10/28/23 03/27/24 History aripiprazole 5 mg tablet 5 mg PO DAILY 10/28/23 03/27/24 History buspirone 10 mg tablet 10 mg PO TID 10/28/23 03/27/24 History cholecalciferol (vitamin D3) 25 25 mcg PO DAILY 10/28/23 03/27/24 History mcg (1,000 unit) capsule (Vitamin D3) escitalopram oxalate 10 mg tablet 20 mg PO DAILY 10/28/23 03/27/24 History ferrous sulfate 325 mg (65 mg 325 mg PO DAILY 10/28/23 03/27/24 History iron) tablet furosemide 40 mg tablet 40 mg PO DAILY 10/28/23 03/27/24 History gabapentin 600 mg tablet 600 mg PO TID 10/28/23 03/27/24 History insulin aspart U-100 100 unit/mL See Rx Instructions .Route .COMPLEX 10/28/23 03/27/24 History (3 mL) subcutaneous pen lorazepam 0.5 mg tablet 0.5 mg PO QHS 10/28/23 03/27/24 History memantine 10 mg tablet 10 mg PO BID 10/28/23 03/27/24 History metformin 500 mg tablet 500 mg PO DAILY 10/28/23 03/27/24 History primidone 50 mg tablet 50 mg PO BID 10/28/23 03/27/24 History ropinirole 0.5 mg tablet 0.5 mg PO QHS 10/28/23 03/27/24 History tamoxifen 20 mg tablet 20 mg PO DAILY 10/28/23 03/27/24 History tramadol 50 mg tablet 50 mg PO QID 10/28/23 03/27/24 History trazodone 50 mg tablet 50 mg PO QHS 10/28/23 03/27/24 History aluminum-mag hydroxide-simethicone 5 ml PO Q6H PRN Heartburn 01/11/24 03/27/24 History 400 mg-400 mg-40 mg/5 mL oral susp (Maalox Maximum Strength) calcium carbonate 400 mg PO Q8H PRN Heartburn 01/11/24 03/27/24 History cyanocobalamin (vitamin B-12) 250 250 mcg PO DAILY 01/11/24 03/27/24 History mcg tablet ipratropium 0.5 mg-albuterol 3 mg 3 ml inhalation Q6H PRN 01/11/24 03/27/24 History (2.5 mg base)/3 mL nebulization sob/wheezing soln magnesium hydroxide 2,400 mg/10 mL 30 ml PO Q6H PRN Constipation 01/11/24 03/27/24 History oral suspension (Milk Of Magnesia Concentrated) multivitamin with minerals 1 tablet PO DAILY 01/11/24 03/27/24 History (Multiple Vitamin-Minerals tablet) naloxone 4 mg/actuation nasal 1 spray intranasal Q2-3M PRN 01/11/24 03/27/24 History spray (Narcan) Opiate Reversal ondansetron 4 mg disintegrating 4 mg PO Q8H PRN Nausea And Vomiting 01/11/24 03/27/24 History tablet pantoprazole 40 mg tablet,delayed 40 mg PO QAM 01/11/24 03/27/24 History release polyethylene glycol 3350 17 17 g PO HS PRN Constipation 01/11/24 03/27/24 History gram/dose oral powder (Miralax) pyridoxine (vitamin B6) 25 mg 25 mg PO DAILY 01/11/24 03/27/24 History tablet sennosides 8.6 mg tablet (senna) 8.6 mg PO BID 01/11/24 03/27/24 History amiodarone 200 mg tablet (Pacerone) 200 mg PO BID #60 tabs 01/14/24 03/27/24 Rx apixaban 5 mg tablet (Eliquis) 5 mg PO Q12HR #60 tabs 01/14/24 03/27/24 Rx losartan 25 mg tablet 12.5 mg PO DAILY #30 tabs 01/14/24 03/27/24 Rx metoprolol tartrate 25 mg tablet 12.5 mg PO BID #30 tabs 01/14/24 03/27/24 Rx Novolog FlexPen U-100 Insulin 2 - 14 units BID 03/27/24 03/27/24 History nystatin 100,000 unit/gram topical 1 applic topical PRN PRN Antifungal 03/27/24 03/27/24 History powder Allergies Allergy/AdvReac Type Severity Reaction Status Date / Time amoxicillin [From Augmentin] Allergy Unknown Verified 03/22/24 13:01 clavulanic acid Allergy Unknown Verified 03/22/24 13:01 [From Augmentin] Vital Signs Vital Signs - 24 hr 03/27/24 13:58 03/27/24 16:00 03/27/24 18:23 Temperature Pulse Rate 64 90 94 Respiratory Rate 20 18 Blood Pressure 101/65 96/58 L Pulse Oximetry 99 100 Oxygen Delivery Oxygen Flow Rate Fraction of Inspired Oxygen 03/27/24 16:00 03/27/24 20:22 03/27/24 20:26 Temperature Pulse Rate 58 L 71 Respiratory Rate 16 Blood Pressure Pulse Oximetry 97 Oxygen Delivery Nasal Cannula Oxygen Flow Rate 3 Fraction of Inspired Oxygen 03/27/24 20:30 03/27/24 20:33 03/27/24 22:00 Temperature 36.7 C Pulse Rate 78 74 60 Respiratory Rate 16 18 Blood Pressure 102/82 Pulse Oximetry 100 Oxygen Delivery Oxygen Flow Rate Fraction of Inspired Oxygen 03/27/24 20:33 03/27/24 20:00 03/27/24 20:12 Temperature 36.9 C Pulse Rate 64 68 Respiratory Rate 16 Blood Pressure 153/107 H Pulse Oximetry 97 100 Oxygen Delivery Nasal Cannula Oxygen Flow Rate 3 Fraction of Inspired Oxygen 03/28/24 00:05 03/28/24 01:14 03/28/24 01:23 Temperature Pulse Rate 45 L 46 L 50 L Respiratory Rate 16 16 Blood Pressure Pulse Oximetry Oxygen Delivery Oxygen Flow Rate Fraction of Inspired Oxygen 03/28/24 00:02 03/28/24 01:29 03/28/24 04:39 Temperature 36.8 C 36.8 C 36.6 C Pulse Rate 91 97 50 L Respiratory Rate 16 18 20 Blood Pressure 87/51 L 97/62 L 121/62 Pulse Oximetry 100 100 100 Oxygen Delivery Oxygen Flow Rate Fraction of Inspired Oxygen 03/28/24 04:01 03/28/24 05:18 03/28/24 05:27 Temperature Pulse Rate 46 L 55 L 55 L Respiratory Rate 17 17 Blood Pressure Pulse Oximetry Oxygen Delivery Oxygen Flow Rate Fraction of Inspired Oxygen 03/28/24 06:00 03/28/24 08:05 03/28/24 08:05 Temperature 36.7 C Pulse Rate 56 L 57 L Respiratory Rate 18 18 Blood Pressure 133/75 Pulse Oximetry 100 98 Oxygen Delivery Nasal Cannula Oxygen Flow Rate 3 Fraction of Inspired Oxygen 32 03/28/24 08:11 03/28/24 09:29 03/28/24 09:30 Temperature Pulse Rate 58 L 53 L 54 L Respiratory Rate 18 Blood Pressure Pulse Oximetry Oxygen Delivery Oxygen Flow Rate Fraction of Inspired Oxygen 03/28/24 09:30 03/28/24 08:00 Temperature Pulse Rate 57 L Respiratory Rate Blood Pressure Pulse Oximetry 98 Oxygen Delivery Nasal Cannula Oxygen Flow Rate 3 Fraction of Inspired Oxygen Exam Const: General: comfortable, no acute distress, alert and awake Orientation/consciousness: patient oriented x3 HENMT: Head: normal to inspection Eyes: General: appearance normal, both eyes and all related structures Pupils: Equal, round and reactive pupils present Neck: Neck: normal visual inspection and supple Carotids: normal carotid upstroke Resp: Effort & Inspection: normal respiratory effort Auscultation: not clear to auscultation bilaterally and rhonchi Cardio: Rate: regular rate Rhythm: regular rhythm Heart sounds: S1 normal heart sound present, S2 normal heart sound present and no murmurs GI: Auscultation: normal bowel sounds Skin: General skin exam: normal color Neuro: General: patient oriented x3 Cranial nerves: Yes Equal, round and reactive pupils present Extrem: General: normal to inspection Other: no edema Psych: Appearance: grossly normal Mental Status: mental status grossly normal Results Labs and Meds 03/28/24 05:02 03/28/24 05:02 Lab results: Cardiac Enzymes 03/28/24 Range/Units 05:02 AST 44 H (14-36) U/L CBC 03/28/24 Range/Units 05:02 WBC 8.5 (4.5-10.0) K/mm3 RBC 3.93 L (4.2-5.4) M/mm3 Hgb 10.9 L (12.0-15.0) g/dL Hct 37.1 (37.0-47.0) % Plt Count 179 (150-375) k/mm3 Lymph # (Auto) 1.83 (0.9-3.2) K/mm3 [place] # (Auto) 0.4 (0.1-0.6) K/mm3 Eos # (Auto) 0.0 (0-0.3) K/mm3 Baso # (Auto) 0.0 (0.0-0.1) K/mm3 Comprehensive Metabolic Panel 03/28/24 Range/Units 05:02 Sodium 139 (137-145) mmol/L Potassium 3.7 (3.4-5.0) mmol/L Chloride 103 (98-107) mmol/L Carbon Dioxide 36 H (22-30) mmol/L BUN 20 H (7-17) mg/dL Creatinine 0.70 (0.7-1.0) mg/dL Glucose 122 H (65-110) mg/dL Calcium 8.5 (8.4-10.2) mg/dL AST 44 H (14-36) U/L ALT 38 H (6-35) U/L Alkaline Phosphatase 72 (38-126) U/L Total Protein 6.0 L (6.3-8.2) g/dL Albumin 3.3 L (3.5-5.1) g/dL Intake and Output 03/27/24 03/28/24 03/28/24 23:59 07:59 15:59 Intake Total 2490 600 480 Output Total 1250 200 Balance 1240 400 480 Intake: IV 50 500 Cefepime 2 gm/Ns 50 ml 2 gm In 50 50 ml @ 100 mls/hr IVPB Q12H [facility] Rx#:[id number] Vancomycin 1,500 mg/Ns 500 ml 1 500 ,500 mg In 500 ml @ 250 mls/hr IVPB Q12H [facility] Rx#:[id number] Oral 2440 100 480 Output: Catheter Urine 1250 200 External/Condom 1250 200
[2024-03-28 12:08] LABS: Vancomycin Trough 14.1 ug/mL (10.0-20.0)
[2024-03-28] MEDS: AZITHROMYCIN 250 MG TABLET 500 MG PO (12:18)
[2024-03-28] MEDS: ACETAMINOPHEN 500 MG TABLET PO ×2 (12:19→21:09)
--- NOTE | 2024-03-28 12:27 | P.PNIM_ITS ---
Progress Note: A&P Assessment and Plan (1) Pneumonia: Qualifiers: Laterality: unspecified laterality Lung location: unspecified part of lung Pneumonia type: due to unspecified organism Qualified Code(s): J18.9 - Pneumonia, unspecified organism Code(s): J18.9 - Pneumonia, unspecified organism Status: Acute Assessment and Plan: * Patient has chronic hypoxic respiratory failure due to COPD is currently complicated by probable pneumonia. Patient is having significant what sounds like purulence sputum production subjective fevers and progressive symptoms. * Her lung exam demonstrates a bilateral wheezing and marked crackles bilateral on admission. Diminished at present. She could simply have an acute bronchitis but will treat with antibiotics for presumed pneumonia. * 02@3LNC which is patients baseline. * Cefepime 2 gram IVPB q12 and Vancomycin 1,500 mg IVPB q 12. * Urine test for urine Legionella antigen and pneumococcal antigen pending. * Lactic acid: 2.3>3.4>3.3>4.0>1.7 (2) COPD (chronic obstructive pulmonary disease): Qualifiers: COPD type: COPD with acute lower respiratory infection Qualified Code(s): J44.0 - Chronic obstructive pulmonary disease with (acute) lower re spiratory infection Code(s): J44.9 - Chronic obstructive pulmonary disease, unspecified Status: Acute Assessment and Plan: * Will place patient on CPT with Acapella and encourage good pulmonary toilet. * Will place on scheduled nebulizer treatments-Ipratropium * Patient did receive 1 dose of Solu-Medrol in the ER. * Will place patient on oral prednisone 50 mg PO daily x 5 days starting tomorrow. * Will continue home oxygen. (3) Chronic constipation: Code(s): K59.09 - Other constipation Status: Acute Assessment and Plan: * Colace enema given 03/27- patient had 2 normal bowel movements per nurse. * Miralax 17 gm PO daily and Senna 8.6 mg PO BID. * Monitor stools and record. (4) Chronic anticoagulation: Code(s): Z79.01 - long term (current) use of anticoagulants Status: Acute Assessment and Plan: * Apixaban 5 mg PO q 12. (5) Chronic hypoxic respiratory failure, on home oxygen therapy: Code(s): J96.11 - Chronic respiratory failure with hypoxia; Z99.81 - Dependence on supplemental oxygen Status: Acute Assessment and Plan: * 02@3LNC at home. (6) Bradycardia: Code(s): R00.1 - Bradycardia, unspecified Status: Acute Assessment and Plan: * Telemetry- SB 55 * Cardiology consult. Continue Losartan and metoprolol; will shift metoprolol tartrate to Toprol XL Subjective Date/time seen: 03/28/24 12:27 Interval history: Patient reports shortness of breath at rest at times but improving and with exertion. Patient states that she is feeling much better. Patient reports chest is sore from coughing. Patient denies palpitations, dizziness, nausea, or vomiting. Patient reports a headache that is a 3 , frequent, and aching. Patient had 2 bowel movements yesterday per nurse. Review of Systems Review of Systems: All systems reviewed & are unremarkable except as noted in HPI and below Exam Const: General: no acute distress and uncomfortable Eyes: Sclera: sclerae normal Resp: Effort & Inspection: normal respiratory effort Auscultation: diminished lung sounds Cardio: Rate: bradycardic (Telemetry- SB 55. ) GI: GI Palp: Yes Soft to palpation Auscultation: normal bowel sounds Other: obese Skin: General skin exam: no rashes or lesions noted Neuro: Speech: normal speech Psych: Affect: normal affect Other: Pleasant and alert Objective Data Vital Signs Vital Signs: Vital Signs - 24 hr 03/27/24 13:58 03/27/24 16:00 03/27/24 18:23 Temperature Pulse Rate 64 90 94 Respiratory Rate 20 18 Blood Pressure 101/65 96/58 L Pulse Oximetry 99 100 Oxygen Delivery Oxygen Flow Rate Fraction of Inspired Oxygen 03/27/24 16:00 03/27/24 20:22 03/27/24 20:26 Temperature Pulse Rate 58 L 71 Respiratory Rate 16 Blood Pressure Pulse Oximetry 97 Oxygen Delivery Nasal Cannula Oxygen Flow Rate 3 Fraction of Inspired Oxygen 03/27/24 20:30 03/27/24 20:33 03/27/24 22:00 Temperature 98.1 F Pulse Rate 78 74 60 Respiratory Rate 16 18 Blood Pressure 102/82 Pulse Oximetry 100 Oxygen Delivery Oxygen Flow Rate Fraction of Inspired Oxygen 03/27/24 20:33 03/27/24 20:00 03/27/24 20:12 Temperature 98.5 F Pulse Rate 64 68 Respiratory Rate 16 Blood Pressure 153/107 H Pulse Oximetry 97 100 Oxygen Delivery Nasal Cannula Oxygen Flow Rate 3 Fraction of Inspired Oxygen 03/28/24 00:05 03/28/24 01:14 03/28/24 01:23 Temperature Pulse Rate 45 L 46 L 50 L Respiratory Rate 16 16 Blood Pressure Pulse Oximetry Oxygen Delivery Oxygen Flow Rate Fraction of Inspired Oxygen 03/28/24 00:02 03/28/24 01:29 03/28/24 04:39 Temperature 98.3 F 98.2 F 97.9 F Pulse Rate 91 97 50 L Respiratory Rate 16 18 20 Blood Pressure 87/51 L 97/62 L 121/62 Pulse Oximetry 100 100 100 Oxygen Delivery Oxygen Flow Rate Fraction of Inspired Oxygen 03/28/24 04:01 03/28/24 05:18 03/28/24 05:27 Temperature Pulse Rate 46 L 55 L 55 L Respiratory Rate 17 17 Blood Pressure Pulse Oximetry Oxygen Delivery Oxygen Flow Rate Fraction of Inspired Oxygen 03/28/24 06:00 03/28/24 08:05 03/28/24 08:05 Temperature 98.0 F Pulse Rate 56 L 57 L Respiratory Rate 18 18 Blood Pressure 133/75 Pulse Oximetry 100 98 Oxygen Delivery Nasal Cannula Oxygen Flow Rate 3 Fraction of Inspired Oxygen 32 03/28/24 08:11 03/28/24 09:29 03/28/24 09:30 Temperature Pulse Rate 58 L 53 L 54 L Respiratory Rate 18 Blood Pressure Pulse Oximetry Oxygen Delivery Oxygen Flow Rate Fraction of Inspired Oxygen 03/28/24 09:30 03/28/24 08:00 03/28/24 12:00 Temperature Pulse Rate 57 L 54 L Respiratory Rate Blood Pressure Pulse Oximetry 98 Oxygen Delivery Nasal Cannula Oxygen Flow Rate 3 Fraction of Inspired Oxygen Intake/Output Intake/Output: Intake & Output 03/25/24 03/26/24 03/27/24 03/28/24 23:59 23:59 23:59 23:59 Intake Total 150 4930 1080 Output Total 1250 200 Balance 150 3680 880 Meds/Results Medications: Active Medications Generic Name Dose Route Start Last Admin Trade Name Freq PRN Reason Stop Dose Admin Acetaminophen 500 mg 03/27/24 07:16 03/28/24 12:19 Acetaminophen 500 Mg Tablet PO 500 mg Q6H PRN Administration Mild Pain (1-3) or Fever Al Hydrox/Mg Hydrox/Simethicone 5 ml 03/27/24 07:14 Mag Hydrox/Al Hydrox/Simeth 30 Ml Udc PO Q6H PRN Heartburn Amiodarone HCl 200 mg 03/27/24 09:00 03/28/24 09:30 Amiodarone Hcl 200 Mg Tablet PO 200 mg BID NICOLE Administration Apixaban 5 mg 03/27/24 09:00 03/28/24 09:20 Apixaban 5 Mg Tablet PO 5 mg Q12HR NICOLE Administration Aripiprazole 5 mg 03/27/24 09:00 03/28/24 09:20 Aripiprazole 5 Mg Tablet PO 5 mg DAILY NICOLE Administration Aripiprazole 2 mg 03/27/24 09:00 03/28/24 09:20 Aripiprazole 2 Mg Tablet PO 2 mg DAILY NICOLE Administration Azithromycin 500 mg 03/28/24 12:15 03/28/24 12:18 Azithromycin 250 Mg Tablet PO 04/01/24 09:01 500 mg DAILY NICOLE Administration Buspirone HCl 10 mg 03/27/24 09:00 03/28/24 12:18 Buspirone Hcl 10 Mg Tablet PO 10 mg TID NICOLE Administration Calcium Carbonate 400 mg 03/27/24 07:14 Calcium Carbonate (Tums) 500 Mg (200 Mg Elemental) PO Q8H PRN Heartburn Cyanocobalamin 250 mcg 03/27/24 09:00 03/28/24 09:19 Cyanocobalamin 250 Mcg Tablet PO 250 mcg DAILY NICOLE Administration Dextrose 12.5 gm 03/27/24 07:19 Dextrose 50% 25 Gm/50 Ml Syringe IV PUSH PRN PRN Hypoglycemia Protocol Escitalopram Oxalate 20 mg 03/27/24 09:00 03/28/24 09:19 Escitalopram Oxalate 10 Mg Tablet PO 20 mg DAILY NICOLE Administration Ferrous Sulfate 325 mg 03/27/24 09:00 03/28/24 09:20 Ferrous Sulfate [address] PO 04/26/24 08:59 325 mg DAILY NICOLE Administration Furosemide 40 mg 03/27/24 09:00 03/28/24 09:20 Furosemide 40 Mg Tablet PO 40 mg DAILY NICOLE Administration Gabapentin 600 mg 03/27/24 09:00 03/28/24 12:18 Gabapentin 300 Mg Capsule PO 600 mg TID NICOLE Administration Glucagon 1 mg 03/27/24 07:19 Glucagon For Inj 1 Mg Vial IM PRN PRN Hypoglycemia Protocol Glucose 15 gm 03/27/24 07:19 Glucose Oral Gel 15 Gm Of Glucse In 37.5 Gm Tube PO PRN PRN Hypoglycemia Protocol Guaifenesin 600 mg 03/27/24 21:00 03/28/24 09:19 Guaifenesin 12 Hr 600 Mg Tabcr PO 04/03/24 20:59 600 mg Q12HR NICOLE Administration Cefepime HCl 2 gm in 50 mls @ 100 mls/hr 03/27/24 10:00 03/28/24 09:31 Maxipime 2 Gm/Ns 50 Ml IVPB 100 mls/hr Q12H NICOLE Administration Dextrose 1,000 mls @ 100 mls/hr 03/27/24 07:19 Dextrose 5% 1,000 Ml IVPB PRN PRN Hypoglycemia Protocol Insulin Aspart 3 - 6 units 03/27/24 08:00 03/28/24 11:46 Insulin Aspart (*Bkc) 100 Units/Ml SUB-Q Not Given TIDWM NICOLE Protocol Insulin Aspart 1 - 3 units 03/27/24 21:00 03/27/24 20:38 Insulin Aspart (*Bkc) 100 Units/Ml SUB-Q 1 units HS NICOLE Administration Protocol Ipratropium [place] 0.5 mg 03/27/24 20:00 03/28/24 08:05 Ipratropium Br 0.02% Inh Soln 0.5 Mg/2.5 Ml Vial INHALATION 0.5 mg Q6HRT NICOLE Administration Lorazepam 0.5 mg 03/27/24 21:00 03/27/24 20:33 Lorazepam (*Crx) 0.5 Mg Tablet PO 0.5 mg QHS NICOLE Administration Losartan Potassium 12.5 mg 03/27/24 09:00 03/28/24 09:20 Losartan Potassium 12.5 Mg Tablet PO 12.5 mg DAILY NICOLE Administration Magnesium Hydroxide 30 ml 03/27/24 07:14 Magnesium Hydroxide Susp 30 Ml Udc PO Q6H PRN Constipation Memantine 10 mg 03/27/24 09:00 03/28/24 09:20 Memantine 10 Mg Tablet PO 10 mg Q12HR NICOLE Administration Metoprolol Tartrate 12.5 mg 03/27/24 09:00 03/28/24 09:29 Metoprolol Tartrate 12.5 Mg Tablet PO Not Given Q12HR NICOLE Multivitamins/Calcium 1 tablet 03/27/24 09:00 03/28/24 09:20 Therapeutic Multivitamins/Minerals Tab (*Bkc) PO 1 tablet DAILY NICOLE Administration Ondansetron HCl 4 mg 03/27/24 10:35 Ondansetron Inj 4 Mg/2 Ml Vial IV PUSH Q6HR PRN Nausea And Vomiting Pantoprazole Sodium 40 mg 03/27/24 09:00 03/28/24 09:20 Pantoprazole 40 Mg Tablet PO 40 mg QAM NICOLE Administration Polyethylene Glycol 17 gm 03/27/24 09:00 03/28/24 09:21 Polyethylene Glycol 3350 17 Gm Powd.Pack PO 17 gm QAM NICOLE Administration Prednisone 40 mg/ Prednisone 50 mg 03/28/24 08:00 03/28/24 09:19 10 mg PO 04/02/24 07:59 50 mg DAILY@0800 NICOLE Administration Primidone 50 mg 03/27/24 09:00 03/28/24 09:20 Primidone 50 Mg Tablet PO 50 mg BID NICOLE Administration Pyridoxine HCl 25 mg 03/27/24 09:00 03/28/24 09:20 Pyridoxine Hcl 25 Mg Tablet PO 25 mg DAILY NICOLE Administration Ropinirole HCl 0.5 mg 03/27/24 21:00 03/27/24 20:33 Ropinirole Hcl 0.5 Mg Tablet PO 0.5 mg QHS NICOLE Administration Senna 8.6 mg 03/27/24 09:00 03/28/24 09:20 Sennosides 8.6 Mg Tablet PO 8.6 mg BID NICOLE Administration Sodium Chloride 6 ml 03/28/24 05:00 03/28/24 05:17 Sodium Chlor 3% 15 Ml Neb (Respiratory Therapy) INHALATION 03/30/24 05:01 6 ml DAILY@0500 NICOLE Administration Tamoxifen Citrate 20 mg 03/27/24 09:00 03/28/24 09:20 Tamoxifen Citrate (*Chemo) 10 Mg Tablet PO 04/26/24 08:59 20 mg DAILY NICOLE Administration Tramadol HCl 50 mg 03/27/24 07:14 Tramadol Hcl (*Crx) 50 Mg Tablet PO QID PRN Pain 4-10 Trazodone HCl 50 mg 03/27/24 21:00 03/27/24 20:33 Trazodone Hcl 50 Mg Tablet PO 50 mg QHS NICOLE Administration Vitamin D 2,000 units 03/27/24 09:00 03/28/24 09:19 Cholecalciferol 1,000 Units Tablet PO 2,000 units DAILY NICOLE Administration Radiology Results: ITS Impressions Chest X-Ray 03/26/24 21:12 IMPRESSION: 1. Emphysema. Abdomen X-Ray 03/27/24 17:27 IMPRESSION: Nonspecific abdomen; no evidence of bowel obstruction Labs Labs: Laboratory Results - last 24 hr 03/27/24 03/27/24 03/27/24 13:02 16:32 17:24 WBC RBC Hgb Hct MCV MCH MCHC RDW Plt Count MPV Immature Gran % (Auto) Neut % (Auto) Lymph % (Auto) [place] % (Auto) Eos % (Auto) Baso % (Auto) Lymph # (Auto) [place] # (Auto) Eos # (Auto) Baso # (Auto) Abs Immat Gran (auto) Absolute Neuts (auto) Absolute Nucleated RBC Nucleated RBC % Platelet Estimate Anisocytosis Schistocytes Sodium Potassium Chloride Carbon Dioxide Anion Gap BUN Creatinine Estim Creat Clear Calc Estimated GFR Glucose POC Capillary Glucose 228 H Lactic Acid 4.0 H 1.7 Calcium Total Bilirubin AST ALT Alkaline Phosphatase Total Protein Albumin Vancomycin Trough 03/27/24 03/28/24 03/28/24 20:36 05:02 07:44 WBC 8.5 RBC 3.93 L Hgb 10.9 L Hct 37.1 MCV 94.4 MCH 27.7 MCHC 29.4 L RDW 15.3 H Plt Count 179 MPV 10.4 Immature Gran % (Auto) 0.5 Neut % (Auto) 72.5 Lymph % (Auto) 21.6 [place] % (Auto) 4.7 Eos % (Auto) 0.5 Baso % (Auto) 0.2 Lymph # (Auto) 1.83 [place] # (Auto) 0.4 Eos # (Auto) 0.0 Baso # (Auto) 0.0 Abs Immat Gran (auto) 0.04 H Absolute Neuts (auto) 6.1 Absolute Nucleated RBC 0.000 Nucleated RBC % 0.0 Platelet Estimate Adequate Anisocytosis 1+ Schistocytes None seen Sodium 139 Potassium 3.7 Chloride 103 Carbon Dioxide 36 H Anion Gap 0 L BUN 20 H Creatinine 0.70 Estim Creat Clear Calc 76 Estimated GFR > 60 Glucose 122 H POC Capillary Glucose 247 H 173 H Lactic Acid Calcium 8.5 Total Bilirubin 0.3 AST 44 H ALT 38 H Alkaline Phosphatase 72 Total Protein 6.0 L Albumin 3.3 L Vancomycin Trough 03/28/24 03/28/24 11:17 11:42 WBC RBC Hgb Hct MCV MCH MCHC RDW Plt Count MPV Immature Gran % (Auto) Neut % (Auto) Lymph % (Auto) [place] % (Auto) Eos % (Auto) Baso % (Auto) Lymph # (Auto) [place] # (Auto) Eos # (Auto) Baso # (Auto) Abs Immat Gran (auto) Absolute Neuts (auto) Absolute Nucleated RBC Nucleated RBC % Platelet Estimate Anisocytosis Schistocytes Sodium Potassium Chloride Carbon Dioxide Anion Gap BUN Creatinine Estim Creat Clear Calc Estimated GFR Glucose POC Capillary Glucose 184 H Lactic Acid Calcium Total Bilirubin AST ALT Alkaline Phosphatase Total Protein Albumin Vancomycin Trough 14.1 Quality VTE Prophylaxis VTE prophylaxis: pharmacologic ordered (Continue home Eliquis)
[2024-03-28] MEDS: PERFLUTREN LIPID MICROSPHERES 1.5 ML VIAL DILUTED TO 10 ML TOTAL VOLUME IV PUSH (16:00)
[2024-03-28 16:43] LABS: Glucose Point of Care 311 mg/dl (65-105)
--- NOTE | 2024-03-28 17:09 | IVDEFINITY ---
Prior to administration of IV Definity the patient was educated on the risks and benefits of the imaging enhancing agent including potential adverse side effects. The patient verbalized understanding. Allergies were verified. No exclusion criteria were identified and at least one of the following inclusion criteria were met: 1) physician request, 2) patient technically difficult to image (per the [place] [employer]ocardi[employer] guidelines of two or more segments not discernable within the apical view), or 3) questionable left ventricular function. ?
[2024-03-28] MEDS: INSULIN ASPART (*BKC) 100 UNITS/ML SUB-Q ×2 (17:39→21:06)
[2024-03-28 19:38] LABS: Glucose Point of Care 287 mg/dl (65-105)
[2024-03-28] MEDS: METOPROLOL TARTRATE 12.5 MG TABLET PO (21:05)
[2024-03-28] MEDS: rOPINIRole HCL 0.5 MG TABLET PO (21:06)
[2024-03-28] MEDS: traZODone HCL 50 MG TABLET PO (21:06)
[2024-03-28] MEDS: LORazepam (*CRX) 0.5 MG TABLET PO (21:06)
[2024-03-28 23:48] LABS: Glucose Point of Care 199 mg/dl (65-105)
[2024-03-28] MEDS: SODIUM CHLORIDE 0.9% IV 500 ML IV CONT (23:50)
[2024-03-29] VITALS (25 sets, daily range): BP systolic 80–134; BP diastolic 50–78; PULSE 49–636; RESP 16–20; TEMP 36.1–36.6; O2SAT 95–100
--- NOTE | 2024-03-29 00:14 | ECG_ITS ---
Test Date: 2024-03-29 00:14:53 Measurements Intervals [place] Rate: 52 P: 95 MI: 160 QRS: 0 QRSD: 105 T: 99 QT: 462 QTc: 431 Interpretive Statements SINUS BRADYCARDIA Compared to ECG 03/26/2024 20:28:57 NO SIGNIFICANT CHANGES Electronically Signed On 03-29-2024 14:53:29 [employer] by Jim Garcia M.D.
[2024-03-29] MEDS: SODIUM CHLORIDE 0.9% IV 500 ML 125 ML IV CONT (01:15)
[2024-03-29] MEDS: IPRATROPIUM BR 0.02% INH SOLN 0.5 MG/2.5 ML VIAL INHALATION ×4 (01:51→20:50)
[2024-03-29 07:15] LABS: Basophils Percent Auto 0.3 % (0.2-1.2); Eosinophils Percent Auto 0.4 % (0-4.4); Hematocrit 32.6 % (37.0-47.0); Hemoglobin 9.9 g/dL (12.0-15.0); Immature Granulocyte Absolute 0.05 K/mm3 (0.00-0.031); Immature Granulocyte Percent A 0.7 % (0-0.5); Lymphocytes Absolute Auto 1.68 K/mm3 (0.9-3.2); Lymphocytes Percent Auto 23.1 % (18.3-44.2); Mean Corpuscular HGB Conc 30.4 g/dl (32-36); Mean Corpuscular Hemoglobin 28.7 pg (26-34); Mean Corpuscular Volume 94.5 fl (80-100); Mean Platelet Volume 10.6 fl (7.4-10.4); Monocytes Absolute Auto 0.5 K/mm3 (0.1-0.6); Monocytes Percent Auto 6.3 % (2.6-8.5); Neutrophils Percent Auto 69.2 % (45.5-73.1); Platelet Count Result 157 k/mm3 (150-375); Red Blood Count 3.45 M/mm3 (4.2-5.4); Red Cell Distribution Width 14.7 % (11.5-14.5); White Blood Count 7.3 K/mm3 (4.5-10.0)
[2024-03-29 08:14] LABS: Alanine Aminotransferase 46 U/L (6-35); Alkaline Phosphatase 76 U/L (38-126); Anion Gap 0 mmol/L (4-12); Aspartate Amino Transferase 54 U/L (14-36); Bilirubin,Total 0.2 mg/dL (0.2-1.3); Blood Urea Nitrogen 18 mg/dL (7-17); Calcium 8.1 mg/dL (8.4-10.2); Carbon Dioxide 35 mmol/L (22-30); Chloride 104 mmol/L (98-107); Estimated CRCL calculation 88 ml/min; Estimated Glomerular Filt Rate > 60; Glucose 133 mg/dL (65-110); Potassium 3.7 mmol/L (3.4-5.0); Sodium 139 mmol/L (137-145)
[2024-03-29 08:20] LABS: Glucose Point of Care 126 mg/dl (65-105)
[2024-03-29] MEDS: PRIMIDONE 50 MG TABLET PO ×2 (08:59→16:33)
[2024-03-29] MEDS: ARIPiprazole 2 MG TABLET PO (08:59)
[2024-03-29] MEDS: PYRIDOXINE HCL 25 MG TABLET PO (08:59)
[2024-03-29] MEDS: SENNOSIDES 8.6 MG TABLET PO ×2 (09:00→16:30)
[2024-03-29] MEDS: FUROSEMIDE 40 MG TABLET PO (09:00)
[2024-03-29] MEDS: CYANOCOBALAMIN 250 MCG TABLET PO (09:00)
[2024-03-29] MEDS: THERAPEUTIC MULTIVITAMINS/MINERALS TAB (*BKC) 1 TABLET PO (09:00)
[2024-03-29] MEDS: FERROUS SULFATE 325 MG TABLET DR PO (09:00)
[2024-03-29] MEDS: predniSONE 40 MG, predniSONE 10 MG 50 MG PO (09:00)
[2024-03-29] MEDS: AMIODARONE HCL 200 MG TABLET PO ×2 (09:01→16:30)
[2024-03-29] MEDS: AZITHROMYCIN 250 MG TABLET 500 MG PO (09:02)
[2024-03-29] MEDS: TAMOXIFEN CITRATE (*CHEMO) 10 MG TABLET 20 MG PO (09:02)
[2024-03-29] MEDS: ARIPiprazole 5 MG TABLET PO (09:02)
[2024-03-29] MEDS: GABAPENTIN 300 MG CAPSULE 600 MG PO ×3 (09:03→16:30)
[2024-03-29] MEDS: PANTOPRAZOLE 40 MG TABLET PO (09:04)
[2024-03-29] MEDS: busPIRone HCL 10 MG TABLET PO ×3 (09:04→16:30)
[2024-03-29] MEDS: LOSARTAN POTASSIUM 12.5 MG TABLET PO (09:04)
[2024-03-29] MEDS: ESCITALOPRAM OXALATE 10 MG TABLET 20 MG PO (09:04)
[2024-03-29] MEDS: CHOLECALCIFEROL 1,000 UNITS TABLET 2000 UNITS PO (09:04)
[2024-03-29] MEDS: APIXABAN 5 MG TABLET PO ×2 (09:04→20:03)
[2024-03-29] MEDS: MEMANTINE 10 MG TABLET PO ×2 (09:05→20:03)
[2024-03-29] MEDS: guaiFENesin 12 HR 600 MG TABCR PO ×2 (09:05→20:02)
[2024-03-29] MEDS: METOPROLOL TARTRATE 12.5 MG TABLET PO (09:05)
[2024-03-29] MEDS: CEFEPIME 2 GM/NS 50 ML 2 GM/50 ML BAG IVPB (09:06)
[2024-03-29 12:06] LABS: Glucose Point of Care 207 mg/dl (65-105)
[2024-03-29] MEDS: traMADol HCL (*CRX) 50 MG TABLET PO (12:07)
[2024-03-29] MEDS: INSULIN ASPART (*BKC) 100 UNITS/ML SUB-Q ×3 (12:08→20:00)
--- NOTE | 2024-03-29 13:38 | P.PNIM_ITS ---
Progress Note: A&P Assessment and Plan (1) Pneumonia: Qualifiers: Laterality: unspecified laterality Lung location: unspecified part of lung Pneumonia type: due to unspecified organism Qualified Code(s): J18.9 - Pneumonia, unspecified organism Code(s): J18.9 - Pneumonia, unspecified organism Status: Acute Assessment and Plan: * Patient has chronic hypoxic respiratory failure due to COPD is currently complicated by probable pneumonia. Patient is having significant what sounds like purulence sputum production subjective fevers and progressive symptoms. * Her lung exam demonstrates a bilateral wheezing and marked crackles bilateral on admission. Diminished at present. She could simply have an acute bronchitis but will treat with antibiotics for presumed pneumonia. * 02@3LNC which is patients baseline. * Currently on Levofloxacin 750 mg PO daily * Urine test for urine Legionella antigen and pneumococcal antigen pending. * Lactic acid: 2.3>3.4>3.3>4.0>1.7 (2) COPD (chronic obstructive pulmonary disease): Qualifiers: COPD type: COPD with acute lower respiratory infection Qualified Code(s): J44.0 - Chronic obstructive pulmonary disease with (acute) lower respiratory infection Code(s): J44.9 - Chronic obstructive pulmonary disease, unspecified Status: Acute Assessment and Plan: * Will place patient on CPT with Acapella and encourage good pulmonary toilet. * Will place on scheduled nebulizer treatments-Ipratropium * Patient did receive 1 dose of Solu-Medrol in the ER. * Will place patient on oral prednisone 50 mg PO daily x 5 days. * Will continue home oxygen. (3) Acute UTI: Code(s): N39.0 - Urinary tract infection, site not specified Status: Acute Assessment and Plan: * Urine cloudy, trace protein, trace ketones, nitrate positive. Leuko 1+ * Urine culture grew E. coli * Nitrofurantoin 100 mg PO q 12. * Encourage water intake (4) Chronic constipation: Code(s): K59.09 - Other constipation Status: Acute Assessment and Plan: * Colace enema given 03/27- patient had 2 normal bowel movements per nurse. * Miralax 17 gm PO daily and Senna 8.6 mg PO BID. * Monitor stools and record. (5) Chronic anticoagulation: Code(s): Z79.01 - bed bug exterminator (current) use of anticoagulants Status: Acute Assessment and Plan: * Apixaban 5 mg PO q 12. (6) Chronic hypoxic respiratory failure, on home oxygen therapy: Code(s): J96.11 - Chronic respiratory failure with hypoxia; Z99.81 - Dependence on supplemental oxygen Status: Acute Assessment and Plan: * 02@3LNC at home. (7) Bradycardia: Code(s): R00.1 - Bradycardia, unspecified Status: Acute Assessment and Plan: * Cardiology consult. Continue Losartan and metoprolol; will shift metoprolol tartrate to Toprol XL * Telemetry SR 60 today. Subjective Date/time seen: 03/29/24 13:38 Interval history: Patient reports shortness of breath at rest at times but improving and with exertion. Patient states that she is feeling much better. Patient reports chest is sore from coughing. Patient denies palpitations, dizziness, nausea, or vomiting. Patient reports a headache that is a 7 , frequent, and aching. Review of Systems Review of Systems: All systems reviewed & are unremarkable except as noted in HPI and below Exam Const: General: no acute distress and uncomfortable Eyes: Sclera: sclerae normal Resp: Auscultation: wheezes expiratory wheezes and diminished lung sounds Cardio: Rate: regular rate Rhythm: regular rhythm Other: Telemetry- SR 60 GI: GI Palp: Yes Soft to palpation Auscultation: normal bowel sounds Other: obese Skin: General skin exam: no rashes or lesions noted Neuro: Speech: normal speech Extrem: General: no pedal edema Psych: Affect: normal affect Other: Pleasant and alert Objective Data Vital Signs Vital Signs: Vital Signs - 24 hr 03/28/24 13:43 03/28/24 13:58 03/28/24 14:34 Temperature 97.5 F L Pulse Rate 67 65 69 Respiratory Rate 18 18 18 Blood Pressure 101/48 L Pulse Oximetry 95 Oxygen Delivery Oxygen Flow Rate Fraction of Inspired Oxygen 03/28/24 16:00 03/28/24 17:39 03/28/24 19:38 Temperature Pulse Rate 66 71 Respiratory Rate Blood Pressure Pulse Oximetry 91 Oxygen Delivery Nasal Cannula Oxygen Flow Rate 2 Fraction of Inspired Oxygen 03/28/24 19:38 03/28/24 19:45 03/28/24 20:00 Temperature Pulse Rate 69 65 72 Respiratory Rate 18 8 L Blood Pressure Pulse Oximetry Oxygen Delivery Oxygen Flow Rate Fraction of Inspired Oxygen 03/28/24 20:00 03/28/24 20:00 03/28/24 21:05 Temperature 98.0 F Pulse Rate 70 70 Respiratory Rate 18 Blood Pressure 108/67 Pulse Oximetry 99 95 Oxygen Delivery Nasal Cannula Oxygen Flow Rate 3 Fraction of Inspired Oxygen 03/28/24 23:45 03/28/24 23:50 03/29/24 00:00 Temperature 97.9 F Pulse Rate 56 L 60 Respiratory Rate 18 Blood Pressure 70/40 L 89/44 L Pulse Oximetry 100 Oxygen Delivery Oxygen Flow Rate Fraction of Inspired Oxygen 03/29/24 00:18 03/29/24 00:57 03/29/24 01:52 Temperature Pulse Rate 54 L Respiratory Rate 16 Blood Pressure 82/58 L 80/50 L Pulse Oximetry Oxygen Delivery Oxygen Flow Rate Fraction of Inspired Oxygen 03/29/24 01:57 03/29/24 04:00 03/29/24 04:00 Temperature 97.9 F Pulse Rate 51 L 57 L 605 H Respiratory Rate 16 18 Blood Pressure 134/73 Pulse Oximetry 100 Oxygen Delivery Oxygen Flow Rate Fraction of Inspired Oxygen 03/29/24 08:00 03/29/24 08:03 03/29/24 08:21 Temperature 97.0 F L Pulse Rate 58 L 49 L Respiratory Rate 16 Blood Pressure 123/72 Pulse Oximetry 100 99 Oxygen Delivery Nasal Cannula Oxygen Flow Rate 2 Fraction of Inspired Oxygen 28 03/29/24 08:21 03/29/24 08:29 03/29/24 09:01 Temperature Pulse Rate 56 L 54 L 66 Respiratory Rate 18 18 Blood Pressure Pulse Oximetry Oxygen Delivery Oxygen Flow Rate Fraction of Inspired Oxygen 03/29/24 09:05 03/29/24 09:06 03/29/24 12:00 Temperature 97.1 F L Pulse Rate 66 63 Respiratory Rate 18 16 Blood Pressure 122/78 Pulse Oximetry 99 98 Oxygen Delivery Nasal Cannula Oxygen Flow Rate 3 Fraction of Inspired Oxygen 03/29/24 12:00 03/29/24 13:02 03/29/24 13:09 Temperature Pulse Rate 636 H 57 L 56 L Respiratory Rate 18 18 Blood Pressure Pulse Oximetry Oxygen Delivery Oxygen Flow Rate Fraction of Inspired Oxygen Intake/Output Intake/Output: Intake & Output 03/26/24 03/27/24 03/28/24 03/29/24 23:59 23:59 23:59 23:59 Intake Total 150 4930 2860 2810 Output Total 1250 2400 2100 Balance 150 3280 255 937 Meds/Results Medications: Active Medications Generic Name Dose Route Start Last Admin Trade Name Freq PRN Reason Stop Dose Admin Acetaminophen 500 mg 03/27/24 07:16 03/28/24 21:09 Acetaminophen 500 Mg Tablet PO 500 mg Q6H PRN Administration Mild Pain (1-3) or Fever Al Hydrox/Mg Hydrox/Simethicone 5 ml 03/27/24 07:14 Mag Hydrox/Al Hydrox/Simeth 30 Ml Udc PO Q6H PRN Heartburn Amiodarone HCl 200 mg 03/27/24 09:00 03/29/24 09:01 Amiodarone Hcl 200 Mg Tablet PO 200 mg BID NICOLE Administration Apixaban 5 mg 03/27/24 09:00 03/29/24 09:04 Apixaban 5 Mg Tablet PO 5 mg Q12HR NICOLE Administration Aripiprazole 5 mg 03/27/24 09:00 03/29/24 09:02 Aripiprazole 5 Mg Tablet PO 5 mg DAILY NICOLE Administration Aripiprazole 2 mg 03/27/24 09:00 03/29/24 08:59 Aripiprazole 2 Mg Tablet PO 2 mg DAILY NICOLE Administration Azithromycin 500 mg 03/28/24 12:15 03/29/24 09:02 Azithromycin 250 Mg Tablet PO 04/01/24 09:01 500 mg DAILY NICOLE Administration Buspirone HCl 10 mg 03/27/24 09:00 03/29/24 12:08 Buspirone Hcl 10 Mg Tablet PO 10 mg TID NICOLE Administration Calcium Carbonate 400 mg 03/27/24 07:14 Calcium Carbonate (Tums) 500 Mg (200 Mg Elemental) PO Q8H PRN Heartburn Cyanocobalamin 250 mcg 03/27/24 09:00 03/29/24 09:00 Cyanocobalamin 250 Mcg Tablet PO 250 mcg DAILY NICOLE Administration Dextrose 12.5 gm 03/27/24 07:19 Dextrose 50% 25 Gm/50 Ml Syringe IV PUSH PRN PRN Hypoglycemia Protocol Escitalopram Oxalate 20 mg 03/27/24 09:00 03/29/24 09:04 Escitalopram Oxalate 10 Mg Tablet PO 20 mg DAILY NICOLE Administration Ferrous Sulfate 325 mg 03/27/24 09:00 03/29/24 09:00 Ferrous Sulfate [address] PO 04/26/24 08:59 325 mg DAILY NICOLE Administration Furosemide 40 mg 03/27/24 09:00 03/29/24 09:00 Furosemide 40 Mg Tablet PO 40 mg DAILY NICOLE Administration Gabapentin 600 mg 03/27/24 09:00 03/29/24 12:07 Gabapentin 300 Mg Capsule PO 600 mg TID NICOLE Administration Glucagon 1 mg 03/27/24 07:19 Glucagon For Inj 1 Mg Vial IM PRN PRN Hypoglycemia Protocol Glucose 15 gm 03/27/24 07:19 Glucose Oral Gel 15 Gm Of Glucse In 37.5 Gm Tube PO PRN PRN Hypoglycemia Protocol Guaifenesin 600 mg 03/27/24 21:00 03/29/24 09:05 Guaifenesin 12 Hr 600 Mg Tabcr PO 04/03/24 20:59 600 mg Q12HR NICOLE Administration Cefepime HCl 2 gm in 50 mls @ 100 mls/hr 03/27/24 10:00 03/29/24 09:35 Maxipime 2 Gm/Ns 50 Ml IVPB Infused Q12H NICOLE Infusion Dextrose 1,000 mls @ 100 mls/hr 03/27/24 07:19 Dextrose 5% 1,000 Ml IVPB PRN PRN Hypoglycemia Protocol Insulin Aspart 3 - 6 units 03/27/24 08:00 03/29/24 12:08 Insulin Aspart (*Bkc) 100 Units/Ml SUB-Q 3 units TIDWM NICOLE Administration Protocol Insulin Aspart 1 - 3 units 03/27/24 21:00 03/28/24 21:06 Insulin Aspart (*Bkc) 100 Units/Ml SUB-Q 2 units HS NICOLE Administration Protocol Ipratropium [place] 0.5 mg 03/27/24 20:00 03/29/24 13:02 Ipratropium Br 0.02% Inh Soln 0.5 Mg/2.5 Ml Vial INHALATION 0.5 mg Q6HRT NICOLE Administration Lorazepam 0.5 mg 03/27/24 21:00 03/28/24 21:06 Lorazepam (*Crx) 0.5 Mg Tablet PO 0.5 mg QHS NICOLE Administration Losartan Potassium 12.5 mg 03/27/24 09:00 03/29/24 09:04 Losartan Potassium 12.5 Mg Tablet PO 12.5 mg DAILY NICOLE Administration Magnesium Hydroxide 30 ml 03/27/24 07:14 Magnesium Hydroxide Susp 30 Ml Udc PO Q6H PRN Constipation Memantine 10 mg 03/27/24 09:00 03/29/24 09:05 Memantine 10 Mg Tablet PO 10 mg Q12HR NICOLE Administration Metoprolol Tartrate 12.5 mg 03/27/24 09:00 03/29/24 09:05 Metoprolol Tartrate 12.5 Mg Tablet PO 12.5 mg Q12HR NICOLE Administration Multivitamins/Calcium 1 tablet 03/27/24 09:00 03/29/24 09:00 Therapeutic Multivitamins/Minerals Tab (*Bkc) PO 1 tablet DAILY NICOLE Administration Ondansetron HCl 4 mg 03/27/24 10:35 Ondansetron Inj 4 Mg/2 Ml Vial IV PUSH Q6HR PRN Nausea And Vomiting Pantoprazole Sodium 40 mg 03/27/24 09:00 03/29/24 09:04 Pantoprazole 40 Mg Tablet PO 40 mg QAM NICOLE Administration Polyethylene Glycol 17 gm 03/27/24 09:00 03/29/24 09:05 Polyethylene Glycol 3350 17 Gm Powd.Pack PO Not Given QAM [facility] Prednisone 40 mg/ Prednisone 50 mg 03/28/24 08:00 03/29/24 09:00 10 mg PO 04/02/24 07:59 50 mg DAILY@0800 NICOLE Administration Primidone 50 mg 03/27/24 09:00 03/29/24 08:59 Primidone 50 Mg Tablet PO 50 mg BID NICOLE Administration Pyridoxine HCl 25 mg 03/27/24 09:00 03/29/24 08:59 Pyridoxine Hcl 25 Mg Tablet PO 25 mg DAILY NICOLE Administration Ropinirole HCl 0.5 mg 03/27/24 21:00 03/28/24 21:06 Ropinirole Hcl 0.5 Mg Tablet PO 0.5 mg QHS NICLOE Administration Senna 8.6 mg 03/27/24 09:00 03/29/24 09:00 Sennosides 8.6 Mg Tablet PO 8.6 mg BID NICOLE Administration Sodium Chloride 6 ml 03/28/24 05:00 03/28/24 05:17 Sodium Chlor 3% 15 Ml Neb (Respiratory Therapy) INHALATION 03/30/24 05:01 6 ml DAILY@0500 NICOLE Administration Tamoxifen Citrate 20 mg 03/27/24 09:00 03/29/24 09:02 Tamoxifen Citrate (*Chemo) 10 Mg Tablet PO 04/26/24 08:59 20 mg DAILY NICOLE Administration Tramadol HCl 50 mg 03/27/24 07:14 03/29/24 12:07 Tramadol Hcl (*Crx) 50 Mg Tablet PO 50 mg QID PRN Administration Pain 4-10 Trazodone HCl 50 mg 03/27/24 21:00 03/28/24 21:06 Trazodone Hcl 50 Mg Tablet PO 50 mg QHS NICOLE Administration Vitamin D 2,000 units 03/27/24 09:00 03/29/24 09:04 Cholecalciferol 1,000 Units Tablet PO 2,000 units DAILY NICOLE Administration Radiology Results: ITS Impressions Chest X-Ray 03/26/24 21:12 IMPRESSION: 1. Emphysema. Abdomen X-Ray 03/27/24 17:27 IMPRESSION: Nonspecific abdomen; no evidence of bowel obstruction Labs Labs: Laboratory Results - last 24 hr 03/28/24 03/28/24 03/28/24 16:41 19:28 23:40 WBC RBC Hgb Hct MCV MCH MCHC RDW Plt Count MPV Immature Gran % (Auto) Neut % (Auto) Lymph % (Auto) [place] % (Auto) Eos % (Auto) Baso % (Auto) Lymph # (Auto) [place] # (Auto) Eos # (Auto) Baso # (Auto) Abs Immat Gran (auto) Absolute Neuts (auto) Absolute Nucleated RBC Nucleated RBC % Sodium Potassium Chloride Carbon Dioxide Anion Gap BUN Creatinine Estim Creat Clear Calc Estimated GFR Glucose POC Capillary Glucose 311 H 287 H 199 H Calcium Total Bilirubin AST ALT Alkaline Phosphatase Total Protein Albumin 03/29/24 03/29/24 03/29/24 05:53 08:13 12:04 WBC 7.3 RBC 3.45 L Hgb 9.9 L Hct 32.6 L MCV 94.5 MCH 28.7 MCHC 30.4 L RDW 14.7 H Plt Count 157 MPV 10.6 H Immature Gran % (Auto) 0.7 H Neut % (Auto) 69.2 Lymph % (Auto) 23.1 [place] % (Auto) 6.3 Eos % (Auto) 0.4 Baso % (Auto) 0.3 Lymph # (Auto) 1.68 [place] # (Auto) 0.5 Eos # (Auto) 0.0 Baso # (Auto) 0.0 Abs Immat Gran (auto) 0.05 H Absolute Neuts (auto) 5.0 Absolute Nucleated RBC 0.000 Nucleated RBC % 0.0 Sodium 139 Potassium 3.7 Chloride 104 Carbon Dioxide 35 H Anion Gap 0 L BUN 18 H Creatinine 0.60 L Estim Creat Clear Calc 88 Estimated GFR > 60 Glucose 133 H POC Capillary Glucose 126 H 207 H Calcium 8.1 L Total Bilirubin 0.2 AST 54 H ALT 46 H Alkaline Phosphatase 76 Total Protein 6.0 L Albumin 3.0 L Quality VTE Prophylaxis VTE prophylaxis: pharmacologic ordered (Continue home Eliquis)
[2024-03-29] MEDS: NITROFURANTOIN MONOHYD MACROCR 100 MG CAP PO ×2 (14:46→20:03)
[2024-03-29 16:56] LABS: Glucose Point of Care 303 mg/dl (65-105)
[2024-03-29 20:00] LABS: Glucose Point of Care 265 mg/dl (65-105)
[2024-03-29] MEDS: traZODone HCL 50 MG TABLET PO (20:02)
[2024-03-29] MEDS: ACETAMINOPHEN 500 MG TABLET PO (20:02)
[2024-03-29] MEDS: LORazepam (*CRX) 0.5 MG TABLET PO (20:02)
[2024-03-29] MEDS: rOPINIRole HCL 0.5 MG TABLET PO (20:02)
[2024-03-29] MEDS: levoFLOXacin 750 MG TABLET PO (20:03)
[2024-03-30] VITALS (19 sets, daily range): BP systolic 97–157; BP diastolic 53–99; PULSE 45–635; RESP 16–20; TEMP 36.1–36.6; O2SAT 95–100
[2024-03-30] MEDS: IPRATROPIUM BR 0.02% INH SOLN 0.5 MG/2.5 ML VIAL INHALATION ×4 (02:04→20:22)
[2024-03-30] MEDS: SODIUM CHLOR 3% 15 ML NEB (RESPIRATORY THERAPY) 6 ML INHALATION (05:51)
[2024-03-30 06:02] LABS: Basophils Percent Auto 0.3 % (0.2-1.2); Eosinophils Percent Auto 0.4 % (0-4.4); Hematocrit 35.7 % (37.0-47.0); Hemoglobin 10.7 g/dL (12.0-15.0); Immature Granulocyte Absolute 0.07 K/mm3 (0.00-0.031); Immature Granulocyte Percent A 0.9 % (0-0.5); Lymphocytes Absolute Auto 1.72 K/mm3 (0.9-3.2); Lymphocytes Percent Auto 22.8 % (18.3-44.2); Mean Corpuscular Hemoglobin 28.1 pg (26-34); Mean Corpuscular Volume 93.7 fl (80-100); Mean Platelet Volume 11.7 fl (7.4-10.4); Monocytes Absolute Auto 0.4 K/mm3 (0.1-0.6); Monocytes Percent Auto 5.2 % (2.6-8.5); Neutrophils Absolute Auto 5.3 K/mm3 (1.3-6.7); Neutrophils Percent Auto 70.4 % (45.5-73.1); Platelet Count Result 209 k/mm3 (150-375); Red Blood Count 3.81 M/mm3 (4.2-5.4); Red Cell Distribution Width 15.1 % (11.5-14.5); White Blood Count 7.5 K/mm3 (4.5-10.0)
[2024-03-30 07:32] LABS: Alanine Aminotransferase 59 U/L (6-35); Albumin Level 3.1 g/dL (3.5-5.1); Alkaline Phosphatase 68 U/L (38-126); Anion Gap 0 mmol/L (4-12); Aspartate Amino Transferase 64 U/L (14-36); Bilirubin,Total 0.4 mg/dL (0.2-1.3); Blood Urea Nitrogen 17 mg/dL (7-17); Calcium 8.5 mg/dL (8.4-10.2); Carbon Dioxide 35 mmol/L (22-30); Chloride 103 mmol/L (98-107); Estimated CRCL calculation 88 ml/min; Estimated Glomerular Filt Rate > 60; Glucose 109 mg/dL (65-110); Sodium 138 mmol/L (137-145)
[2024-03-30 08:08] LABS: Glucose Point of Care 133 mg/dl (65-105)
[2024-03-30] MEDS: predniSONE 40 MG, predniSONE 10 MG 50 MG PO (08:24)
[2024-03-30] MEDS: AMIODARONE HCL 200 MG TABLET PO (08:25)
[2024-03-30] MEDS: ARIPiprazole 5 MG TABLET PO (08:26)
[2024-03-30] MEDS: ARIPiprazole 2 MG TABLET PO (08:26)
[2024-03-30] MEDS: busPIRone HCL 10 MG TABLET PO ×3 (08:26→17:10)
[2024-03-30] MEDS: CYANOCOBALAMIN 250 MCG TABLET PO (08:26)
[2024-03-30] MEDS: CHOLECALCIFEROL 1,000 UNITS TABLET 2000 UNITS PO (08:26)
[2024-03-30] MEDS: APIXABAN 5 MG TABLET PO ×2 (08:26→20:10)
[2024-03-30] MEDS: ESCITALOPRAM OXALATE 10 MG TABLET 20 MG PO (08:26)
[2024-03-30] MEDS: NITROFURANTOIN MONOHYD MACROCR 100 MG CAP PO ×2 (08:27→20:10)
[2024-03-30] MEDS: FERROUS SULFATE 325 MG TABLET DR PO (08:27)
[2024-03-30] MEDS: PANTOPRAZOLE 40 MG TABLET PO (08:27)
[2024-03-30] MEDS: FUROSEMIDE 40 MG TABLET PO (08:27)
[2024-03-30] MEDS: polyethylene glycoL 3350 17 GM POWD.PACK PO (08:27)
[2024-03-30] MEDS: GABAPENTIN 300 MG CAPSULE 600 MG PO ×3 (08:27→17:10)
[2024-03-30] MEDS: guaiFENesin 12 HR 600 MG TABCR PO ×2 (08:27→20:10)
[2024-03-30] MEDS: THERAPEUTIC MULTIVITAMINS/MINERALS TAB (*BKC) 1 TABLET PO (08:27)
[2024-03-30] MEDS: MEMANTINE 10 MG TABLET PO ×2 (08:27→20:10)
[2024-03-30] MEDS: PYRIDOXINE HCL 25 MG TABLET PO (08:28)
[2024-03-30] MEDS: LOSARTAN POTASSIUM 12.5 MG TABLET PO (08:28)
[2024-03-30] MEDS: SENNOSIDES 8.6 MG TABLET PO ×2 (08:28→17:10)
[2024-03-30] MEDS: PRIMIDONE 50 MG TABLET PO ×2 (08:28→17:10)
[2024-03-30] MEDS: traMADol HCL (*CRX) 50 MG TABLET PO ×2 (08:36→20:09)
[2024-03-30] MEDS: TAMOXIFEN CITRATE (*CHEMO) 10 MG TABLET 20 MG PO (08:41)
[2024-03-30 11:58] LABS: Glucose Point of Care 239 mg/dl (65-105)
[2024-03-30] MEDS: INSULIN ASPART (*BKC) 100 UNITS/ML SUB-Q ×3 (12:24→20:05)
--- NOTE | 2024-03-30 13:13 | PM.PNCARD ---
Progress Note: A&P Assessment and Plan (1) Atrial fibrillation: Code(s): I48.91 - Unspecified atrial fibrillation Status: Acute Assessment and Plan: -will decrease amiodarone to 200 mg once daily -will decrease metoprolol to 6.25 mg twice a day. (2) Systolic dysfunction: Code(s): I51.9 - Heart disease, unspecified Status: Acute Assessment and Plan: EF 35% in December 2023 with possible Takotsubo etiology. Limited echo pending. If LV function is impaired then will continue metoprolol but was switched to succinate (3) Chronic anticoagulation: Code(s): Z79.01 - snf (current) use of anticoagulants Status: Acute Assessment and Plan: No bleeding problems. Continue Eliquis 5mg b.i.d. (4) Pneumonia: Qualifiers: Laterality: unspecified laterality Lung location: unspecified part of lung Pneumonia type: due to unspecified organism Qualified Code(s): J18.9 - Pneumonia, unspecified organism Code(s): J18.9 - Pneumonia, unspecified organism Status: Acute Assessment and Plan: Abx and management per hospitlist. Subjective Date/time seen: 03/30/24 13:13 Interval history: No acute events overnight She feels is better Delay shows still bradycardic in the 50s though Review of Systems Review of Systems: All systems reviewed & are unremarkable except as noted in HPI and below Exam Const: General: comfortable, no acute distress, alert and awake Orientation/consciousness: patient oriented x3 HENMT: Head: normal to inspection Eyes: General: appearance normal, both eyes and all related structures Pupils: Equal, round and reactive pupils present Neck: Neck: normal visual inspection and supple Carotids: normal carotid upstroke Resp: Effort & Inspection: normal respiratory effort Auscultation: not clear to auscultation bilaterally and rhonchi Cardio: Rate: regular rate Rhythm: regular rhythm Heart sounds: S1 normal heart sound present, S2 normal heart sound present and no murmurs GI: Auscultation: normal bowel sounds Skin: General skin exam: normal color Neuro: General: patient oriented x3 Cranial nerves: Yes Equal, round and reactive pupils present Extrem: General: normal to inspection Other: no edema Psych: Appearance: grossly normal Mental Status: mental status grossly normal Objective Data Vital Signs Vital Signs: Vital Signs - 24 hr 03/29/24 16:00 03/29/24 16:04 03/29/24 16:30 Temperature 36.3 C L Pulse Rate 64 68 64 Respiratory Rate 18 Blood Pressure 116/65 Pulse Oximetry 97 Oxygen Delivery Oxygen Flow Rate 03/29/24 19:41 03/29/24 20:00 03/29/24 20:00 Temperature 36.5 C Pulse Rate 72 62 Respiratory Rate 20 Blood Pressure 98/53 L Pulse Oximetry 96 95 Oxygen Delivery Nasal Cannula Oxygen Flow Rate 3 03/29/24 20:03 03/29/24 20:53 03/29/24 20:54 Temperature Pulse Rate 55 L 63 Respiratory Rate 18 Blood Pressure Pulse Oximetry 96 Oxygen Delivery Nasal Cannula Oxygen Flow Rate 1 03/29/24 20:59 03/30/24 00:00 03/30/24 00:00 Temperature 36.5 C Pulse Rate 58 L 63 46 L Respiratory Rate 18 20 Blood Pressure 100/55 L Pulse Oximetry 98 Oxygen Delivery Oxygen Flow Rate 03/30/24 02:04 03/30/24 02:11 03/30/24 04:00 Temperature Pulse Rate 56 L 45 L 48 L Respiratory Rate 18 18 Blood Pressure Pulse Oximetry Oxygen Delivery Oxygen Flow Rate 03/30/24 04:00 03/30/24 05:52 03/30/24 06:00 Temperature 36.5 C Pulse Rate 83 54 L 55 L Respiratory Rate 20 18 18 Blood Pressure 105/70 Pulse Oximetry 95 Oxygen Delivery Oxygen Flow Rate 03/30/24 07:34 03/30/24 07:34 03/30/24 07:48 Temperature Pulse Rate 62 58 L Respiratory Rate 18 18 Blood Pressure Pulse Oximetry 97 Oxygen Delivery Oxygen Flow Rate 2 03/30/24 08:00 03/30/24 08:00 03/30/24 08:00 Temperature 36.1 C L Pulse Rate 58 L 56 L Respiratory Rate 16 Blood Pressure 120/69 Pulse Oximetry 100 100 Oxygen Delivery Nasal Cannula Oxygen Flow Rate 3 03/30/24 08:25 Temperature Pulse Rate 54 L Respiratory Rate Blood Pressure Pulse Oximetry Oxygen Delivery Oxygen Flow Rate Intake/Output Intake/Output: Intake & Output 03/27/24 03/28/24 03/29/24 03/30/24 23:59 23:59 23:59 23:59 Intake Total 4930 2860 2810 820 Output Total 1250 2400 2200 1600 Balance 3680 460 610 -780 Meds/Results Medications: Active Medications Generic Name Dose Route Start Last Admin Trade Name Freq PRN Reason Stop Dose Admin Acetaminophen 500 mg 03/27/24 07:16 03/29/24 20:02 Acetaminophen 500 Mg Tablet PO 500 mg Q6H PRN Administration Mild Pain (1-3) or Fever Al Hydrox/Mg Hydrox/Simethicone 5 ml 03/27/24 07:14 Mag Hydrox/Al Hydrox/Simeth 30 Ml Udc PO Q6H PRN Heartburn Amiodarone HCl 200 mg 03/31/24 08:00 Amiodarone Hcl 200 Mg Tablet PO DAILY@0800 NICOLE Apixaban 5 mg 03/27/24 09:00 03/30/24 08:26 Apixaban 5 Mg Tablet PO 5 mg Q12HR NICOLE Administration Aripiprazole 5 mg 03/27/24 09:00 03/30/24 08:26 Aripiprazole 5 Mg Tablet PO 5 mg DAILY NICOLE Administration Aripiprazole 2 mg 03/27/24 09:00 03/30/24 08:26 Aripiprazole 2 Mg Tablet PO 2 mg DAILY NICOLE Administration Buspirone HCl 10 mg 03/27/24 09:00 03/30/24 12:22 Buspirone Hcl 10 Mg Tablet PO 10 mg TID NICOLE Administration Calcium Carbonate 400 mg 03/27/24 07:14 Calcium Carbonate (Tums) 500 Mg (200 Mg Elemental) PO Q8H PRN Heartburn Cyanocobalamin 250 mcg 03/27/24 09:00 03/30/24 08:26 Cyanocobalamin 250 Mcg Tablet PO 250 mcg DAILY NICOLE Administration Dextrose 12.5 gm 03/27/24 07:19 Dextrose 50% 25 Gm/50 Ml Syringe IV PUSH PRN PRN Hypoglycemia Protocol Escitalopram Oxalate 20 mg 03/27/24 09:00 03/30/24 08:26 Escitalopram Oxalate 10 Mg Tablet PO 20 mg DAILY NICOLE Administration Ferrous Sulfate 325 mg 03/27/24 09:00 03/30/24 08:27 Ferrous Sulfate [address] PO 04/26/24 08:59 325 mg DAILY NICOLE Administration Furosemide 40 mg 03/27/24 09:00 03/30/24 08:27 Furosemide 40 Mg Tablet PO 40 mg DAILY NICOLE Administration Gabapentin 600 mg 03/27/24 09:00 03/30/24 12:22 Gabapentin 300 Mg Capsule PO 600 mg TID NICOLE Administration Glucagon 1 mg 03/27/24 07:19 Glucagon For Inj 1 Mg Vial IM PRN PRN Hypoglycemia Protocol Glucose 15 gm 03/27/24 07:19 Glucose Oral Gel 15 Gm Of Glucse In 37.5 Gm Tube PO PRN PRN Hypoglycemia Protocol Guaifenesin 600 mg 03/27/24 21:00 03/30/24 08:27 Guaifenesin 12 Hr 600 Mg Tabcr PO 04/03/24 20:59 600 mg Q12HR NICOLE Administration Dextrose 1,000 mls @ 100 mls/hr 03/27/24 07:19 Dextrose 5% 1,000 Ml IVPB PRN PRN Hypoglycemia Protocol Insulin Aspart 3 - 6 units 03/27/24 08:00 03/30/24 12:24 Insulin Aspart (*Bkc) 100 Units/Ml SUB-Q 3 units TIDWM NICOLE Administration Protocol Insulin Aspart 1 - 3 units 03/27/24 21:00 03/29/24 20:00 Insulin Aspart (*Bkc) 100 Units/Ml SUB-Q 2 units HS NICOLE Administration Protocol Ipratropium [place] 0.5 mg 03/27/24 20:00 03/30/24 07:32 Ipratropium Br 0.02% Inh Soln 0.5 Mg/2.5 Ml Vial INHALATION 0.5 mg Q6HRT NICOLE Administration Levofloxacin 750 mg 03/29/24 21:00 03/29/24 20:03 Levofloxacin 750 Mg Tablet PO 04/01/24 21:01 750 mg DAILY@2100 NICOLE Administration Lorazepam 0.5 mg 03/27/24 21:00 03/29/24 20:02 Lorazepam (*Crx) 0.5 Mg Tablet PO 0.5 mg QHS NICOLE Administration Losartan Potassium 12.5 mg 03/27/24 09:00 03/30/24 08:28 Losartan Potassium 12.5 Mg Tablet PO 12.5 mg DAILY NICOLE Administration Magnesium Hydroxide 30 ml 03/27/24 07:14 Magnesium Hydroxide Susp 30 Ml Udc PO Q6H PRN Constipation Memantine 10 mg 03/27/24 09:00 03/30/24 08:27 Memantine 10 Mg Tablet PO 10 mg Q12HR NICOLE Administration Metoprolol Tartrate 6.25 mg 03/30/24 21:00 Metoprolol Tartrate 6.25 Mg Tablet PO Q12HR [facility] Multivitamins/Calcium 1 tablet 03/27/24 09:00 03/30/24 08:27 Therapeutic Multivitamins/Minerals Tab (*Bkc) PO 1 tablet DAILY NICOLE Administration Nitrofurantoin Macrocrystals 100 mg 03/29/24 13:50 03/30/24 08:27 Nitrofurantoin Monohyd Macrocr 100 Mg Cap PO 04/02/24 21:01 100 mg Q12HR NICOLE Administration Ondansetron HCl 4 mg 03/27/24 10:35 Ondansetron Inj 4 Mg/2 Ml Vial IV PUSH Q6HR PRN Nausea And Vomiting Pantoprazole Sodium 40 mg 03/27/24 09:00 03/30/24 08:27 Pantoprazole 40 Mg Tablet PO 40 mg QAM NICOLE Administration Polyethylene Glycol 17 gm 03/27/24 09:00 03/30/24 08:27 Polyethylene Glycol 3350 17 Gm Powd.Pack PO 17 gm QAM NICOLE Administration Prednisone 40 mg/ Prednisone 50 mg 03/28/24 08:00 03/30/24 08:24 10 mg PO 04/02/24 07:59 50 mg DAILY@0800 NICOLE Administration Primidone 50 mg 03/27/24 09:00 03/30/24 08:28 Primidone 50 Mg Tablet PO 50 mg BID NICOLE Administration Pyridoxine HCl 25 mg 03/27/24 09:00 03/30/24 08:28 Pyridoxine Hcl 25 Mg Tablet PO 25 mg DAILY NICOLE Administration Ropinirole HCl 0.5 mg 03/27/24 21:00 03/29/24 20:02 Ropinirole Hcl 0.5 Mg Tablet PO 0.5 mg QHS NICOLE Administration Senna 8.6 mg 03/27/24 09:00 03/30/24 08:28 Sennosides 8.6 Mg Tablet PO 8.6 mg BID NICOLE Administration Tamoxifen Citrate 20 mg 03/27/24 09:00 03/30/24 08:41 Tamoxifen Citrate (*Chemo) 10 Mg Tablet PO 04/26/24 08:59 20 mg DAILY NICOLE Administration Tramadol HCl 50 mg 03/27/24 07:14 03/30/24 08:36 Tramadol Hcl (*Crx) 50 Mg Tablet PO 50 mg QID PRN Administration Pain 4-10 Trazodone HCl 50 mg 03/27/24 21:00 03/29/24 20:02 Trazodone Hcl 50 Mg Tablet PO 50 mg QHS NICOLE Administration Vitamin D 2,000 units 03/27/24 09:00 03/30/24 08:26 Cholecalciferol 1,000 Units Tablet PO 2,000 units DAILY NICOLE Administration Radiology Results: ITS Impressions Chest X-Ray 03/26/24 21:12 IMPRESSION: 1. Emphysema. Abdomen X-Ray 03/27/24 17:27 IMPRESSION: Nonspecific abdomen; no evidence of bowel obstruction Labs Labs: Laboratory Results - last 24 hr 03/29/24 03/29/24 03/30/24 16:51 19:43 05:27 WBC 7.5 RBC 3.81 L Hgb 10.7 L Hct 35.7 L MCV 93.7 MCH 28.1 MCHC 30.0 L RDW 15.1 H Plt Count 209 MPV 11.7 H Immature Gran % (Auto) 0.9 H Neut % (Auto) 70.4 Lymph % (Auto) 22.8 [place] % (Auto) 5.2 Eos % (Auto) 0.4 Baso % (Auto) 0.3 Lymph # (Auto) 1.72 [place] # (Auto) 0.4 Eos # (Auto) 0.0 Baso # (Auto) 0.0 Abs Immat Gran (auto) 0.07 H Absolute Neuts (auto) 5.3 Absolute Nucleated RBC 0.000 Nucleated RBC % 0.0 Sodium Potassium Chloride Carbon Dioxide Anion Gap BUN Creatinine Estim Creat Clear Calc Estimated GFR Glucose POC Capillary Glucose 303 H 265 H Calcium Total Bilirubin AST ALT Alkaline Phosphatase Total Protein Albumin 03/30/24 03/30/24 03/30/24 06:53 07:53 11:50 WBC RBC Hgb Hct MCV MCH MCHC RDW Plt Count MPV Immature Gran % (Auto) Neut % (Auto) Lymph % (Auto) [place] % (Auto) Eos % (Auto) Baso % (Auto) Lymph # (Auto) [place] # (Auto) Eos # (Auto) Baso # (Auto) Abs Immat Gran (auto) Absolute Neuts (auto) Absolute Nucleated RBC Nucleated RBC % Sodium 138 Potassium 4.0 Chloride 103 Carbon Dioxide 35 H Anion Gap 0 L BUN 17 Creatinine 0.60 L Estim Creat Clear Calc 88 Estimated GFR > 60 Glucose 109 POC Capillary Glucose 133 H 239 H Calcium 8.5 Total Bilirubin 0.4 AST 64 H ALT 59 H Alkaline Phosphatase 68 Total Protein 6.0 L Albumin 3.1 L
--- NOTE | 2024-03-30 17:00 | P.PNIM_ITS ---
Progress Note: A&P Assessment and Plan (1) Pneumonia: Qualifiers: Laterality: unspecified laterality Lung location: unspecified part of lung Pneumonia type: due to unspecified organism Qualified Code(s): J18.9 - Pneumonia, unspecified organism Code(s): J18.9 - Pneumonia, unspecified organism Status: Acute Assessment and Plan: * Patient has chronic hypoxic respiratory failure due to COPD is currently complicated by probable pneumonia. Patient is having significant what sounds like purulence sputum production subjective fevers and progressive symptoms. * Her lung exam demonstrates a bilateral wheezing and marked crackles bilateral on admission. Diminished at present. She could simply have an acute bronchitis but will treat with antibiotics for presumed pneumonia. * Currently on 02@3LNC which is her baseline. * Currently on Levofloxacin 750 mg PO daily. * Urine test for urine Legionella antigen and pneumococcal antigen pending. * Lactic acid: 2.3>3.4>3.3>4.0>1.7 (2) COPD (chronic obstructive pulmonary disease): Qualifiers: COPD type: COPD with acute lower respiratory infection Qualified Code(s): J44.0 - Chronic obstructive pulmonary disease with (acute) lower respiratory infection Code(s): J44.9 - Chronic obstructive pulmonary disease, unspecified Status: Acute Assessment and Plan: * Patient on CPT with Acapella and encouraged with pulmonary toileting. * Continue scheduled nebulizer treatments-Ipratropium * Patient given 1 dose of Solu-Medrol on admission. * Continue prednisone, taper dose. * Continue O2 to maintain sats > 90 %, currently on 3L/NC. (3) Acute UTI: Code(s): N39.0 - Urinary tract infection, site not specified Status: Acute Assessment and Plan: * Urine cloudy, trace protein, trace ketones, nitrate positive. Leuko 1+ * Urine culture grew E. coli * Continue Nitrofurantoin per sensitivities. * Encouraged with water intake. (4) Chronic constipation: Code(s): K59.09 - Other constipation Status: Acute Assessment and Plan: * Colace enema given 03/27- patient had 2 normal bowel movements per nurse. * Miralax 17 gm PO daily and Senna 8.6 mg PO BID. * Monitor stools and record. (5) Chronic anticoagulation: Code(s): Z79.01 - [employer] (current) use of anticoagulants Status: Acute Assessment and Plan: * Apixaban 5 mg PO q 12. (6) Chronic hypoxic respiratory failure, on home oxygen therapy: Code(s): J96.11 - Chronic respiratory failure with hypoxia; Z99.81 - Dependence on supplemental oxygen Status: Acute Assessment and Plan: * Currently on 02@3LNC at home. * Currently on home dose supplemental O2. (7) Bradycardia: Code(s): R00.1 - Bradycardia, unspecified Status: Acute Assessment and Plan: * Cardiology following. Continue Losartan and metoprolol; * Toprol dose adjusted per cardiology. * Episodes of anne but improving. * Continue to adjust meds as needed. Time Spent With Patient Time with patient: 15 - 25 minutes Subjective Date/time seen: 03/30/24 10:00 Patient states she's feeling alright and has no pain or any distressful symptoms. Interval history: Patient calm on bedrest and looks to be in no acute distress. Review of Systems Review of Systems: 12 systems were reviewed with pertinent positives and negatives per HPI. Except as documented in the HPI, all other systems were reviewed and are negative. All systems reviewed & are unremarkable except as noted in HPI and below Exam Narrative: General: Fair appearing, generalized muscle weak[ness. HEENT: Atraumatic, PERRL, EOM, moist mucosa. NECK: Supple. Lungs: Diminished bilaterally. HEART: Irregularly irregular, no murmurs. Abdomen: Soft, non-tender, non-distended, +ve bowel sounds X4 quadrants. Extremities: Acyanotic, no edema. Skin: Warm and dry. No open lesions noted. Neuro: Fairly oriented, CN II-XII grossly intact. Psych: Pleasant and co-operative. Objective Data Vital Signs Vital Signs: Vital Signs - 24 hr 03/29/24 19:41 03/29/24 20:00 03/29/24 20:00 Temperature 97.7 F Pulse Rate 72 62 Respiratory Rate 20 Blood Pressure 98/53 L Pulse Oximetry 96 95 Oxygen Delivery Nasal Cannula Oxygen Flow Rate 3 03/29/24 20:03 03/29/24 20:53 03/29/24 20:54 Temperature Pulse Rate 55 L 63 Respiratory Rate 18 Blood Pressure Pulse Oximetry 96 Oxygen Delivery Nasal Cannula Oxygen Flow Rate 1 03/29/24 20:59 03/30/24 00:00 03/30/24 00:00 Temperature 97.7 F Pulse Rate 58 L 63 46 L Respiratory Rate 18 20 Blood Pressure 100/55 L Pulse Oximetry 98 Oxygen Delivery Oxygen Flow Rate 03/30/24 02:04 03/30/24 02:11 03/30/24 04:00 Temperature Pulse Rate 56 L 45 L 48 L Respiratory Rate 18 18 Blood Pressure Pulse Oximetry Oxygen Delivery Oxygen Flow Rate 03/30/24 04:00 03/30/24 05:52 03/30/24 06:00 Temperature 97.7 F Pulse Rate 83 54 L 55 L Respiratory Rate 20 18 18 Blood Pressure 105/70 Pulse Oximetry 95 Oxygen Delivery Oxygen Flow Rate 03/30/24 07:34 03/30/24 07:34 03/30/24 07:48 Temperature Pulse Rate 62 58 L Respiratory Rate 18 18 Blood Pressure Pulse Oximetry 97 Oxygen Delivery Oxygen Flow Rate 2 03/30/24 08:00 03/30/24 08:00 03/30/24 08:00 Temperature 96.9 F L Pulse Rate 58 L 56 L Respiratory Rate 16 Blood Pressure 120/69 Pulse Oximetry 100 100 Oxygen Delivery Nasal Cannula Oxygen Flow Rate 3 03/30/24 08:25 03/30/24 12:00 03/30/24 12:00 Temperature 98 F Pulse Rate 54 L 64 635 H Respiratory Rate 18 Blood Pressure 157/99 H Pulse Oximetry 97 Oxygen Delivery Oxygen Flow Rate 03/30/24 13:43 03/30/24 13:54 Temperature Pulse Rate 61 63 Respiratory Rate 18 20 Blood Pressure Pulse Oximetry Oxygen Delivery Oxygen Flow Rate Intake/Output Intake/Output: Intake & Output 03/27/24 03/28/24 03/29/24 03/30/24 23:59 23:59 23:59 23:59 Intake Total 4930 2860 2810 820 Output Total 1250 2400 2200 1600 Balance 3680 527 642 -541 Meds/Results Medications: Active Medications Generic Name Dose Route Start Last Admin Trade Name Freq PRN Reason Stop Dose Admin Acetaminophen 500 mg 03/27/24 07:16 03/29/24 20:02 Acetaminophen 500 Mg Tablet PO 500 mg Q6H PRN Administration Mild Pain (1-3) or Fever Al Hydrox/Mg Hydrox/Simethicone 5 ml 03/27/24 07:14 Mag Hydrox/Al Hydrox/Simeth 30 Ml Udc PO Q6H PRN Heartburn Amiodarone HCl 200 mg 03/31/24 08:00 Amiodarone Hcl 200 Mg Tablet PO DAILY@0800 NICOLE Apixaban 5 mg 03/27/24 09:00 03/30/24 08:26 Apixaban 5 Mg Tablet PO 5 mg Q12HR NICOLE Administration Aripiprazole 5 mg 03/27/24 09:00 03/30/24 08:26 Aripiprazole 5 Mg Tablet PO 5 mg DAILY NICOLE Administration Aripiprazole 2 mg 03/27/24 09:00 03/30/24 08:26 Aripiprazole 2 Mg Tablet PO 2 mg DAILY NICOLE Administration Benzocaine 1 lozenge 03/30/24 15:18 Benzocaine/Menthol (*Bkc) 18 Ea Lozenge PO PRN PRN Sore Throat Buspirone HCl 10 mg 03/27/24 09:00 03/30/24 12:22 Buspirone Hcl 10 Mg Tablet PO 10 mg TID NICOLE Administration Calcium Carbonate 400 mg 03/27/24 07:14 Calcium Carbonate (Tums) 500 Mg (200 Mg Elemental) PO Q8H PRN Heartburn Cyanocobalamin 250 mcg 03/27/24 09:00 03/30/24 08:26 Cyanocobalamin 250 Mcg Tablet PO 250 mcg DAILY NICOLE Administration Dextrose 12.5 gm 03/27/24 07:19 Dextrose 50% 25 Gm/50 Ml Syringe IV PUSH PRN PRN Hypoglycemia Protocol Escitalopram Oxalate 20 mg 03/27/24 09:00 03/30/24 08:26 Escitalopram Oxalate 10 Mg Tablet PO 20 mg DAILY NICOLE Administration Ferrous Sulfate 325 mg 03/27/24 09:00 03/30/24 08:27 Ferrous Sulfate [address] PO 04/26/24 08:59 325 mg DAILY NICOLE Administration Furosemide 40 mg 03/27/24 09:00 03/30/24 08:27 Furosemide 40 Mg Tablet PO 40 mg DAILY NICOLE Administration Gabapentin 600 mg 03/27/24 09:00 03/30/24 12:22 Gabapentin 300 Mg Capsule PO 600 mg TID NICOLE Administration Glucagon 1 mg 03/27/24 07:19 Glucagon For Inj 1 Mg Vial IM PRN PRN Hypoglycemia Protocol Glucose 15 gm 03/27/24 07:19 Glucose Oral Gel 15 Gm Of Glucse In 37.5 Gm Tube PO PRN PRN Hypoglycemia Protocol Guaifenesin 600 mg 03/27/24 21:00 03/30/24 08:27 Guaifenesin 12 Hr 600 Mg Tabcr PO 04/03/24 20:59 600 mg Q12HR NICOLE Administration Dextrose 1,000 mls @ 100 mls/hr 03/27/24 07:19 Dextrose 5% 1,000 Ml IVPB PRN PRN Hypoglycemia Protocol Insulin Aspart 3 - 6 units 03/27/24 08:00 03/30/24 12:24 Insulin Aspart (*Bkc) 100 Units/Ml SUB-Q 3 units TIDWM NICOLE Administration Protocol Insulin Aspart 1 - 3 units 03/27/24 21:00 03/29/24 20:00 Insulin Aspart (*Bkc) 100 Units/Ml SUB-Q 2 units HS NICOLE Administration Protocol Ipratropium [place] 0.5 mg 03/27/24 20:00 03/30/24 13:42 Ipratropium Br 0.02% Inh Soln 0.5 Mg/2.5 Ml Vial INHALATION 0.5 mg Q6HRT NICOLE Administration Levofloxacin 750 mg 03/29/24 21:00 03/29/24 20:03 Levofloxacin 750 Mg Tablet PO 04/01/24 21:01 750 mg DAILY@2100 NICOLE Administration Lorazepam 0.5 mg 03/27/24 21:00 03/29/24 20:02 Lorazepam (*Crx) 0.5 Mg Tablet PO 0.5 mg QHS NICOLE Administration Losartan Potassium 12.5 mg 03/27/24 09:00 03/30/24 08:28 Losartan Potassium 12.5 Mg Tablet PO 12.5 mg DAILY NICOLE Administration Magnesium Hydroxide 30 ml 03/27/24 07:14 Magnesium Hydroxide Susp 30 Ml Udc PO Q6H PRN Constipation Memantine 10 mg 03/27/24 09:00 03/30/24 08:27 Memantine 10 Mg Tablet PO 10 mg Q12HR NICOLE Administration Metoprolol Tartrate 6.25 mg 03/30/24 21:00 Metoprolol Tartrate 6.25 Mg Tablet PO Q12HR NICOLE Multivitamins/Calcium 1 tablet 03/27/24 09:00 03/30/24 08:27 Therapeutic Multivitamins/Minerals Tab (*Bkc) PO 1 tablet DAILY NICOLE Administration Nitrofurantoin Macrocrystals 100 mg 03/29/24 13:50 03/30/24 08:27 Nitrofurantoin Monohyd Macrocr 100 Mg Cap PO 04/02/24 21:01 100 mg Q12HR NICOLE Administration Ondansetron HCl 4 mg 03/27/24 10:35 Ondansetron Inj 4 Mg/2 Ml Vial IV PUSH Q6HR PRN Nausea And Vomiting Pantoprazole Sodium 40 mg 03/27/24 09:00 03/30/24 08:27 Pantoprazole 40 Mg Tablet PO 40 mg QAM NICOLE Administration Polyethylene Glycol 17 gm 03/27/24 09:00 03/30/24 08:27 Polyethylene Glycol 3350 17 Gm Powd.Pack PO 17 gm QAM NICOLE Administration Prednisone 40 mg/ Prednisone 50 mg 03/28/24 08:00 03/30/24 08:24 10 mg PO 04/02/24 07:59 50 mg DAILY@0800 NICOLE Administration Primidone 50 mg 03/27/24 09:00 03/30/24 08:28 Primidone 50 Mg Tablet PO 50 mg BID NICOLE Administration Pyridoxine HCl 25 mg 03/27/24 09:00 03/30/24 08:28 Pyridoxine Hcl 25 Mg Tablet PO 25 mg DAILY NICOLE Administration Ropinirole HCl 0.5 mg 03/27/24 21:00 03/29/24 20:02 Ropinirole Hcl 0.5 Mg Tablet PO 0.5 mg QHS NICOLE Administration Senna 8.6 mg 03/27/24 09:00 03/30/24 08:28 Sennosides 8.6 Mg Tablet PO 8.6 mg BID NICOLE Administration Tamoxifen Citrate 20 mg 03/27/24 09:00 03/30/24 08:41 Tamoxifen Citrate (*Chemo) 10 Mg Tablet PO 04/26/24 08:59 20 mg DAILY NICOLE Administration Tramadol HCl 50 mg 03/27/24 07:14 03/30/24 08:36 Tramadol Hcl (*Crx) 50 Mg Tablet PO 50 mg QID PRN Administration Pain 4-10 Trazodone HCl 50 mg 03/27/24 21:00 03/29/24 20:02 Trazodone Hcl 50 Mg Tablet PO 50 mg QHS NICOLE Administration Vitamin D 2,000 units 03/27/24 09:00 03/30/24 08:26 Cholecalciferol 1,000 Units Tablet PO 2,000 units DAILY NICOLE Administration Radiology Results: ITS Impressions Chest X-Ray 03/26/24 21:12 IMPRESSION: 1. Emphysema. Abdomen X-Ray 03/27/24 17:27 IMPRESSION: Nonspecific abdomen; no evidence of bowel obstruction Labs Labs: Laboratory Results - last 24 hr 03/29/24 03/30/24 03/30/24 19:43 05:27 06:53 WBC 7.5 RBC 3.81 L Hgb 10.7 L Hct 35.7 L MCV 93.7 MCH 28.1 MCHC 30.0 L RDW 15.1 H Plt Count 209 MPV 11.7 H Immature Gran % (Auto) 0.9 H Neut % (Auto) 70.4 Lymph % (Auto) 22.8 [place] % (Auto) 5.2 Eos % (Auto) 0.4 Baso % (Auto) 0.3 Lymph # (Auto) 1.72 [place] # (Auto) 0.4 Eos # (Auto) 0.0 Baso # (Auto) 0.0 Abs Immat Gran (auto) 0.07 H Absolute Neuts (auto) 5.3 Absolute Nucleated RBC 0.000 Nucleated RBC % 0.0 Sodium 138 Potassium 4.0 Chloride 103 Carbon Dioxide 35 H Anion Gap 0 L BUN 17 Creatinine 0.60 L Estim Creat Clear Calc 88 Estimated GFR > 60 Glucose 109 POC Capillary Glucose 265 H Calcium 8.5 Total Bilirubin 0.4 AST 64 H ALT 59 H Alkaline Phosphatase 68 Total Protein 6.0 L Albumin 3.1 L 03/30/24 03/30/24 07:53 11:50 WBC RBC Hgb Hct MCV MCH MCHC RDW Plt Count MPV Immature Gran % (Auto) Neut % (Auto) Lymph % (Auto) [place] % (Auto) Eos % (Auto) Baso % (Auto) Lymph # (Auto) [place] # (Auto) Eos # (Auto) Baso # (Auto) Abs Immat Gran (auto) Absolute Neuts (auto) Absolute Nucleated RBC Nucleated RBC % Sodium Potassium Chloride Carbon Dioxide Anion Gap BUN Creatinine Estim Creat Clear Calc Estimated GFR Glucose POC Capillary Glucose 133 H 239 H Calcium Total Bilirubin AST ALT Alkaline Phosphatase Total Protein Albumin Quality VTE Prophylaxis VTE prophylaxis: pharmacologic ordered (Continue home Eliquis) Hospitalist MIPS Advance Care Plan I have confirmed that the patient's Advanced Care Plan is present, code status is documented, or surrogate decision maker is listed in patient medical record.: Yes Medication Reconciliation I have utilized all available resources to obtain, update and review the patients current medications (includes all prescriptions, OTC, herbals, cannabis, and nutritional supplements).: Yes
[2024-03-30 17:14] LABS: Glucose Point of Care 296 mg/dl (65-105)
[2024-03-30] MEDS: levoFLOXacin 750 MG TABLET PO (20:09)
[2024-03-30] MEDS: LORazepam (*CRX) 0.5 MG TABLET PO (20:09)
[2024-03-30] MEDS: METOPROLOL TARTRATE 6.25 MG TABLET PO (20:10)
[2024-03-30] MEDS: rOPINIRole HCL 0.5 MG TABLET PO (20:10)
[2024-03-30] MEDS: traZODone HCL 50 MG TABLET PO (20:10)
[2024-03-30 20:53] LABS: Glucose Point of Care 265 mg/dl (65-105)
[2024-03-30 22:18] LABS: Legionella pneumophila Ag Ur NOT DETECTED
[2024-03-31] VITALS (24 sets, daily range): BP systolic 100–127; BP diastolic 39–98; PULSE 55–616; RESP 18–20; TEMP 36.2–36.9; O2SAT 97–100
[2024-03-31] MEDS: traMADol HCL (*CRX) 50 MG TABLET PO ×2 (00:21→20:31)
[2024-03-31] MEDS: IPRATROPIUM BR 0.02% INH SOLN 0.5 MG/2.5 ML VIAL INHALATION ×4 (02:22→20:37)
[2024-03-31 06:07] LABS: Basophils Percent Auto 0.2 % (0.2-1.2); Eosinophils Percent Auto 0.2 % (0-4.4); Hematocrit 33.5 % (37.0-47.0); Hemoglobin 9.9 g/dL (12.0-15.0); Immature Granulocyte Absolute 0.09 K/mm3 (0.00-0.031); Immature Granulocyte Percent A 1.1 % (0-0.5); Lymphocytes Percent Auto 22.2 % (18.3-44.2); Mean Corpuscular HGB Conc 29.6 g/dl (32-36); Mean Corpuscular Hemoglobin 27.3 pg (26-34); Mean Corpuscular Volume 92.5 fl (80-100); Mean Platelet Volume 9.9 fl (7.4-10.4); Monocytes Absolute Auto 0.6 K/mm3 (0.1-0.6); Neutrophils Absolute Auto 5.9 K/mm3 (1.3-6.7); Neutrophils Percent Auto 69.3 % (45.5-73.1); Platelet Count Result 156 k/mm3 (150-375); Red Blood Count 3.62 M/mm3 (4.2-5.4); Red Cell Distribution Width 14.9 % (11.5-14.5); White Blood Count 8.6 K/mm3 (4.5-10.0)
[2024-03-31 06:27] LABS: Alanine Aminotransferase 56 U/L (6-35); Albumin Level 3.1 g/dL (3.5-5.1); Alkaline Phosphatase 84 U/L (38-126); Anion Gap 0 mmol/L (4-12); Aspartate Amino Transferase 53 U/L (14-36); Bilirubin,Total 0.3 mg/dL (0.2-1.3); Blood Urea Nitrogen 20 mg/dL (7-17); Calcium 8.4 mg/dL (8.4-10.2); Carbon Dioxide 35 mmol/L (22-30); Chloride 103 mmol/L (98-107); Estimated CRCL calculation 76 ml/min; Estimated Glomerular Filt Rate > 60; Glucose 163 mg/dL (65-110); Potassium 3.7 mmol/L (3.4-5.0); Sodium 138 mmol/L (137-145)
[2024-03-31 06:50] LABS: Hypochromasia 1+; Platelet Estimate Adequate (Adequate)
[2024-03-31 06:51] LABS: Schistocytes None Seen
[2024-03-31 08:43] LABS: Glucose Point of Care 120 mg/dl (65-105)
[2024-03-31] MEDS: ESCITALOPRAM OXALATE 10 MG TABLET 20 MG PO (08:59)
[2024-03-31] MEDS: MEMANTINE 10 MG TABLET PO ×2 (08:59→20:31)
[2024-03-31] MEDS: NITROFURANTOIN MONOHYD MACROCR 100 MG CAP PO ×2 (08:59→20:31)
[2024-03-31] MEDS: ARIPiprazole 2 MG TABLET PO (08:59)
[2024-03-31] MEDS: APIXABAN 5 MG TABLET PO ×2 (08:59→20:31)
[2024-03-31] MEDS: PANTOPRAZOLE 40 MG TABLET PO (08:59)
[2024-03-31] MEDS: METOPROLOL TARTRATE 6.25 MG TABLET PO ×2 (08:59→20:30)
[2024-03-31] MEDS: PYRIDOXINE HCL 25 MG TABLET PO (08:59)
[2024-03-31] MEDS: CYANOCOBALAMIN 250 MCG TABLET PO (09:00)
[2024-03-31] MEDS: FERROUS SULFATE 325 MG TABLET DR PO (09:00)
[2024-03-31] MEDS: LOSARTAN POTASSIUM 12.5 MG TABLET PO (09:00)
[2024-03-31] MEDS: predniSONE 20 MG TABLET 40 MG PO (09:01)
[2024-03-31] MEDS: AMIODARONE HCL 200 MG TABLET PO (09:01)
[2024-03-31] MEDS: PRIMIDONE 50 MG TABLET PO ×2 (09:01→16:36)
[2024-03-31] MEDS: SENNOSIDES 8.6 MG TABLET PO ×2 (09:01→16:36)
[2024-03-31] MEDS: FUROSEMIDE 40 MG TABLET PO (09:01)
[2024-03-31] MEDS: ARIPiprazole 5 MG TABLET PO (09:01)
[2024-03-31] MEDS: TAMOXIFEN CITRATE (*CHEMO) 10 MG TABLET 20 MG PO (09:02)
[2024-03-31] MEDS: CHOLECALCIFEROL 1,000 UNITS TABLET 2000 UNITS PO (09:02)
[2024-03-31] MEDS: THERAPEUTIC MULTIVITAMINS/MINERALS TAB (*BKC) 1 TABLET PO (09:02)
[2024-03-31] MEDS: GABAPENTIN 300 MG CAPSULE 600 MG PO ×3 (09:02→16:36)
[2024-03-31] MEDS: busPIRone HCL 10 MG TABLET PO ×3 (09:02→16:36)
[2024-03-31] MEDS: guaiFENesin 12 HR 600 MG TABCR PO ×2 (09:03→20:32)
[2024-03-31 11:38] LABS: Glucose Point of Care 305 mg/dl (65-105)
[2024-03-31] MEDS: INSULIN ASPART (*BKC) 100 UNITS/ML SUB-Q ×3 (11:44→20:25)
--- NOTE | 2024-03-31 13:45 | P.PNIM_ITS ---
Progress Note: A&P Assessment and Plan (1) Pneumonia: Qualifiers: Laterality: unspecified laterality Lung location: unspecified part of lung Pneumonia type: due to unspecified organism Qualified Code(s): J18.9 - Pneumonia, unspecified organism Code(s): J18.9 - Pneumonia, unspecified organism Status: Acute Assessment and Plan: * Patient has chronic hypoxic respiratory failure due to COPD, currently complicated by probable pneumonia. Patient currently with faint expiratory wheezes. * Patient with likely COPD exacerbation but she's currently on antibiotics for possible pneumonia. * Currently on 02@3LNC which is her baseline. * Currently on Levofloxacin 750 mg PO daily. * Urine test for urine Legionella antigen and pneumococcal antigen pending. * Lactic acid: 2.3>3.4>3.3>4.0>1.7 (2) COPD (chronic obstructive pulmonary disease): Qualifiers: COPD type: COPD with acute lower respiratory infection Qualified Code(s): J44.0 - Chronic obstructive pulmonary disease with (acute) lower res piratory infection Code(s): J44.9 - Chronic obstructive pulmonary disease, unspecified Status: Acute Assessment and Plan: * Patient on CPT with Acapella and encouraged with pulmonary toileting. * Continue scheduled nebulizer treatments-Ipratropium * Patient given 1 dose of Solu-Medrol on admission. * Continue prednisone, taper dose. * Continue O2 to maintain sats > 90 %, currently on 3L/NC which is her baseline at home. (3) Acute UTI: Code(s): N39.0 - Urinary tract infection, site not specified Status: Acute Assessment and Plan: * Urine cloudy, trace protein, trace ketones, nitrate positive. Leuko 1+ * Urine culture grew E. coli * Continue Nitrofurantoin per sensitivities. * Encouraged with water intake. (4) Chronic constipation: Code(s): K59.09 - Other constipation Status: Acute Assessment and Plan: * Colace enema given 03/27- patient had 2 normal bowel movements per nurse. * Miralax 17 gm PO daily and Senna 8.6 mg PO BID. * Monitor stools and record. (5) Chronic anticoagulation: Code(s): Z79.01 - intermediate (current) use of anticoagulants Status: Acute Assessment and Plan: * Apixaban 5 mg PO q 12. (6) Chronic hypoxic respiratory failure, on home oxygen therapy: Code(s): J96.11 - Chronic respiratory failure with hypoxia; Z99.81 - Dependence on supplemental oxygen Status: Acute Assessment and Plan: * Currently on 02@3LNC at home. * Currently on home dose supplemental O2. (7) Bradycardia: Code(s): R00.1 - Bradycardia, unspecified Status: Acute Assessment and Plan: * Cardiology following. Continue Losartan and metoprolol; * Toprol dose adjusted per cardiology. * Still with some episodes of anne but improving. * Continue to adjust meds as needed. Time Spent With Patient Time with patient: 15 - 25 minutes Subjective Date/time seen: 03/31/24 11:45 Patient states she feels alright and has no pain or other distressful symptoms. Interval history: Patient calm on bedrest and looks to be in no acute distress. Review of Systems Review of Systems: 12 systems were reviewed with pertinent positives and negatives per HPI. Except as documented in the HPI, all other systems were reviewed and are negative. All systems reviewed & are unremarkable except as noted in HPI and below Exam Narrative: General: Fair appearing, generalized muscle weak[ness. HEENT: Atraumatic, PERRL, EOM, moist mucosa. NECK: Supple. Lungs: Diminished bilaterally with faint expiratory wheezes. HEART: Irregularly irregular, no murmurs. Abdomen: Soft, non-tender, non-distended, +ve bowel sounds X4 quadrants. Extremities: Acyanotic, no edema. Skin: Warm and dry. No open lesions noted. Neuro: Fairly oriented, CN II-XII grossly intact. Psych: Pleasant and co-operative. Objective Data Vital Signs Vital Signs: Vital Signs - 24 hr 03/30/24 13:54 03/30/24 16:00 03/30/24 20:00 Temperature 97.5 F L Pulse Rate 63 68 75 Respiratory Rate 20 20 18 Blood Pressure 106/92 H 97/53 L Pulse Oximetry 97 95 Oxygen Delivery Oxygen Flow Rate 03/30/24 20:00 03/30/24 20:00 03/30/24 20:10 Temperature Pulse Rate 64 75 Respiratory Rate Blood Pressure Pulse Oximetry 98 Oxygen Delivery Nasal Cannula Oxygen Flow Rate 2 03/30/24 20:22 03/30/24 20:27 03/30/24 20:33 Temperature Pulse Rate 68 65 Respiratory Rate 18 20 Blood Pressure Pulse Oximetry 98 Oxygen Delivery Oxygen Flow Rate 3 03/31/24 00:00 03/31/24 00:00 03/31/24 02:22 Temperature 97.3 F L Pulse Rate 60 60 57 L Respiratory Rate 18 18 Blood Pressure 119/52 L Pulse Oximetry 100 Oxygen Delivery Oxygen Flow Rate 03/31/24 02:29 03/31/24 04:00 03/31/24 04:00 Temperature 97.5 F L Pulse Rate 59 L 55 L 61 Respiratory Rate 20 18 Blood Pressure 109/39 L Pulse Oximetry 97 Oxygen Delivery Oxygen Flow Rate 03/31/24 07:58 03/31/24 08:00 03/31/24 08:03 Temperature 97.1 F L 97.1 F L Pulse Rate 57 L 57 L 58 L Respiratory Rate 18 18 Blood Pressure 125/98 H 125/98 H Pulse Oximetry 100 100 Oxygen Delivery Oxygen Flow Rate 03/31/24 08:18 03/31/24 08:18 03/31/24 08:25 Temperature Pulse Rate 60 56 L Respiratory Rate 20 20 Blood Pressure Pulse Oximetry 98 Oxygen Delivery Nasal Cannula Oxygen Flow Rate 2 03/31/24 08:59 03/31/24 09:01 03/31/24 09:03 Temperature Pulse Rate 65 65 Respiratory Rate 20 Blood Pressure Pulse Oximetry 98 Oxygen Delivery Nasal Cannula Oxygen Flow Rate 2 03/31/24 12:00 Temperature 97.3 F L Pulse Rate 59 L Respiratory Rate 18 Blood Pressure 100/59 L Pulse Oximetry 97 Oxygen Delivery Oxygen Flow Rate Intake/Output Intake/Output: Intake & Output 03/28/24 03/29/24 03/30/24 03/31/24 23:59 23:59 23:59 23:59 Intake Total 2860 2810 2860 360 Output Total 2400 2200 3400 1400 Balance 460 275 [id number] [id number] Meds/Results Medications: Active Medications Generic Name Dose Route Start Last Admin Trade Name Freq PRN Reason Stop Dose Admin Acetaminophen 500 mg 03/27/24 07:16 03/29/24 20:02 Acetaminophen 500 Mg Tablet PO 500 mg Q6H PRN Administration Mild Pain (1-3) or Fever Al Hydrox/Mg Hydrox/Simethicone 5 ml 03/27/24 07:14 Mag Hydrox/Al Hydrox/Simeth 30 Ml Udc PO Q6H PRN Heartburn Amiodarone HCl 200 mg 03/31/24 08:00 03/31/24 09:01 Amiodarone Hcl 200 Mg Tablet PO 200 mg DAILY@0800 NICOLE Administration Apixaban 5 mg 03/27/24 09:00 03/31/24 08:59 Apixaban 5 Mg Tablet PO 5 mg Q12HR NICOLE Administration Aripiprazole 5 mg 03/27/24 09:00 03/31/24 09:01 Aripiprazole 5 Mg Tablet PO 5 mg DAILY NICOLE Administration Aripiprazole 2 mg 03/27/24 09:00 03/31/24 08:59 Aripiprazole 2 Mg Tablet PO 2 mg DAILY NICOLE Administration Benzocaine 1 lozenge 03/30/24 15:18 Benzocaine/Menthol (*Bkc) 18 Ea Lozenge PO PRN PRN Sore Throat Buspirone HCl 10 mg 03/27/24 09:00 03/31/24 12:52 Buspirone Hcl 10 Mg Tablet PO 10 mg TID NICOLE Administration Calcium Carbonate 400 mg 03/27/24 07:14 Calcium Carbonate (Tums) 500 Mg (200 Mg Elemental) PO Q8H PRN Heartburn Cyanocobalamin 250 mcg 03/27/24 09:00 03/31/24 09:00 Cyanocobalamin 250 Mcg Tablet PO 250 mcg DAILY NICOLE Administration Dextrose 12.5 gm 03/27/24 07:19 Dextrose 50% 25 Gm/50 Ml Syringe IV PUSH PRN PRN Hypoglycemia Protocol Escitalopram Oxalate 20 mg 03/27/24 09:00 03/31/24 08:59 Escitalopram Oxalate 10 Mg Tablet PO 20 mg DAILY NICOLE Administration Ferrous Sulfate 325 mg 03/27/24 09:00 03/31/24 09:00 Ferrous Sulfate [address] PO 04/26/24 08:59 325 mg DAILY NICOLE Administration Furosemide 40 mg 03/27/24 09:00 03/31/24 09:01 Furosemide 40 Mg Tablet PO 40 mg DAILY NICOLE Administration Gabapentin 600 mg 03/27/24 09:00 03/31/24 12:52 Gabapentin 300 Mg Capsule PO 600 mg TID NICOLE Administration Glucagon 1 mg 03/27/24 07:19 Glucagon For Inj 1 Mg Vial IM PRN PRN Hypoglycemia Protocol Glucose 15 gm 03/27/24 07:19 Glucose Oral Gel 15 Gm Of Glucse In 37.5 Gm Tube PO PRN PRN Hypoglycemia Protocol Guaifenesin 600 mg 03/27/24 21:00 03/31/24 09:03 Guaifenesin 12 Hr 600 Mg Tabcr PO 04/03/24 20:59 600 mg Q12HR NICOLE Administration Dextrose 1,000 mls @ 100 mls/hr 03/27/24 07:19 Dextrose 5% 1,000 Ml IVPB PRN PRN Hypoglycemia Protocol Insulin Aspart 3 - 6 units 03/27/24 08:00 03/31/24 11:44 Insulin Aspart (*Bkc) 100 Units/Ml SUB-Q 5 units TIDWM NICOLE Administration Protocol Insulin Aspart 1 - 3 units 03/27/24 21:00 03/30/24 20:05 Insulin Aspart (*Bkc) 100 Units/Ml SUB-Q 2 units HS NICOLE Administration Protocol Ipratropium [place] 0.5 mg 03/27/24 20:00 03/31/24 08:18 Ipratropium Br 0.02% Inh Soln 0.5 Mg/2.5 Ml Vial INHALATION 0.5 mg Q6HRT NICOLE Administration Levofloxacin 750 mg 03/29/24 21:00 03/30/24 20:09 Levofloxacin 750 Mg Tablet PO 04/01/24 21:01 750 mg DAILY@2100 NICOLE Administration Lorazepam 0.5 mg 03/27/24 21:00 03/30/24 20:09 Lorazepam (*Crx) 0.5 Mg Tablet PO 0.5 mg QHS NICOLE Administration Losartan Potassium 12.5 mg 03/27/24 09:00 03/31/24 09:00 Losartan Potassium 12.5 Mg Tablet PO 12.5 mg DAILY NICOLE Administration Magnesium Hydroxide 30 ml 03/27/24 07:14 Magnesium Hydroxide Susp 30 Ml Udc PO Q6H PRN Constipation Memantine 10 mg 03/27/24 09:00 03/31/24 08:59 Memantine 10 Mg Tablet PO 10 mg Q12HR NICOLE Administration Metoprolol Tartrate 6.25 mg 03/30/24 21:00 03/31/24 08:59 Metoprolol Tartrate 6.25 Mg Tablet PO 6.25 mg Q12HR NICOLE Administration Multivitamins/Calcium 1 tablet 03/27/24 09:00 03/31/24 09:02 Therapeutic Multivitamins/Minerals Tab (*Bkc) PO 1 tablet DAILY NICOLE Administration Nitrofurantoin Macrocrystals 100 mg 03/30/24 21:00 03/31/24 08:59 Nitrofurantoin Monohyd Macrocr 100 Mg Cap PO 100 mg Q12HR NICOLE Administration Ondansetron HCl 4 mg 03/27/24 10:35 Ondansetron Inj 4 Mg/2 Ml Vial IV PUSH Q6HR PRN Nausea And Vomiting Pantoprazole Sodium 40 mg 03/27/24 09:00 03/31/24 08:59 Pantoprazole 40 Mg Tablet PO 40 mg QAM NICOLE Administration Polyethylene Glycol 17 gm 03/27/24 09:00 03/31/24 09:03 Polyethylene Glycol 3350 17 Gm Powd.Pack PO Not Given QAM [facility] Prednisone 40 mg 03/31/24 08:00 03/31/24 09:01 Prednisone 20 Mg Tablet PO 04/05/24 07:59 40 mg DAILY@0800 NICOLE Administration Primidone 50 mg 03/27/24 09:00 03/31/24 09:01 Primidone 50 Mg Tablet PO 50 mg BID NICOLE Administration Pyridoxine HCl 25 mg 03/27/24 09:00 03/31/24 08:59 Pyridoxine Hcl 25 Mg Tablet PO 25 mg DAILY NICOLE Administration Ropinirole HCl 0.5 mg 03/27/24 21:00 03/30/24 20:10 Ropinirole Hcl 0.5 Mg Tablet PO 0.5 mg QHS [facility] Administration Senna 8.6 mg 03/27/24 09:00 03/31/24 09:01 Sennosides 8.6 Mg Tablet PO 8.6 mg BID NICOLE Administration Tamoxifen Citrate 20 mg 03/27/24 09:00 03/31/24 09:02 Tamoxifen Citrate (*Chemo) 10 Mg Tablet PO 04/26/24 08:59 20 mg DAILY NICOLE Administration Tramadol HCl 50 mg 03/27/24 07:14 03/31/24 00:21 Tramadol Hcl (*Crx) 50 Mg Tablet PO 50 mg QID PRN Administration Pain 4-10 Trazodone HCl 50 mg 03/27/24 21:00 03/30/24 20:10 Trazodone Hcl 50 Mg Tablet PO 50 mg QHS [facility] Administration Vitamin D 2,000 units 03/27/24 09:00 03/31/24 09:02 Cholecalciferol 1,000 Units Tablet PO 2,000 units DAILY NICOLE Administration Radiology Results: ITS Impressions Chest X-Ray 03/26/24 21:12 IMPRESSION: 1. Emphysema. Abdomen X-Ray 03/27/24 17:27 IMPRESSION: Nonspecific abdomen; no evidence of bowel obstruction Labs Labs: Laboratory Results - last 24 hr 03/27/24 03/30/24 03/30/24 11:55 17:11 20:04 WBC RBC Hgb Hct MCV MCH MCHC RDW Plt Count MPV Immature Gran % (Auto) Neut % (Auto) Lymph % (Auto) [place] % (Auto) Eos % (Auto) Baso % (Auto) Lymph # (Auto) [place] # (Auto) Eos # (Auto) Baso # (Auto) Abs Immat Gran (auto) Absolute Neuts (auto) Absolute Nucleated RBC Nucleated RBC % Platelet Estimate Hypochromasia Schistocytes Sodium Potassium Chloride Carbon Dioxide Anion Gap BUN Creatinine Estim Creat Clear Calc Estimated GFR Glucose POC Capillary Glucose 296 H 265 H Calcium Total Bilirubin AST ALT Alkaline Phosphatase Total Protein Albumin Ur L.pneumophila Ag Not detected 03/31/24 03/31/24 03/31/24 05:49 07:57 11:30 WBC 8.6 RBC 3.62 L Hgb 9.9 L Hct 33.5 L MCV 92.5 MCH 27.3 MCHC 29.6 L RDW 14.9 H Plt Count 156 MPV 9.9 Immature Gran % (Auto) 1.1 H Neut % (Auto) 69.3 Lymph % (Auto) 22.2 [place] % (Auto) 7.0 Eos % (Auto) 0.2 Baso % (Auto) 0.2 Lymph # (Auto) 1.90 [place] # (Auto) 0.6 Eos # (Auto) 0.0 Baso # (Auto) 0.0 Abs Immat Gran (auto) 0.09 H Absolute Neuts (auto) 5.9 Absolute Nucleated RBC 0.000 Nucleated RBC % 0.0 Platelet Estimate Adequate Hypochromasia 1+ Schistocytes None seen Sodium 138 Potassium 3.7 Chloride 103 Carbon Dioxide 35 H Anion Gap 0 L BUN 20 H Creatinine 0.70 Estim Creat Clear Calc 76 Estimated GFR > 60 Glucose 163 H POC Capillary Glucose 120 H 305 H Calcium 8.4 Total Bilirubin 0.3 AST 53 H ALT 56 H Alkaline Phosphatase 84 Total Protein 6.0 L Albumin 3.1 L Ur L.pneumophila Ag Quality VTE Prophylaxis VTE prophylaxis: pharmacologic ordered (Continue home Eliquis) Hospitalist [facility] Advance Care Plan I have confirmed that the patient's Advanced Care Plan is present, code status is documented, or surrogate decision maker is listed in patient medical record.: Yes Medication Reconciliation I have utilized all available resources to obtain, update and review the patients current medications (includes all prescriptions, OTC, herbals, cannabis, and nutritional supplements).: Yes
[2024-03-31 16:37] LABS: Glucose Point of Care 346 mg/dl (65-105)
[2024-03-31] MEDS: polyethylene glycoL 3350 17 GM POWD.PACK PO (16:40)
[2024-03-31 20:08] LABS: Glucose Point of Care 263 mg/dl (65-105)
[2024-03-31] MEDS: rOPINIRole HCL 0.5 MG TABLET PO (20:31)
[2024-03-31] MEDS: LORazepam (*CRX) 0.5 MG TABLET PO (20:31)
[2024-03-31] MEDS: levoFLOXacin 750 MG TABLET PO (20:31)
[2024-03-31] MEDS: traZODone HCL 50 MG TABLET PO (20:32)
[2024-04-01] VITALS (18 sets, daily range): BP systolic 95–113; BP diastolic 56–94; PULSE 54–72; RESP 18–20; TEMP 36.3–36.8; O2SAT 96–99
[2024-04-01] MEDS: IPRATROPIUM BR 0.02% INH SOLN 0.5 MG/2.5 ML VIAL INHALATION ×4 (02:32→20:31)
[2024-04-01 05:39] LABS: Basophils Percent Auto 0.4 % (0.2-1.2); Eosinophils Percent Auto 0.4 % (0-4.4); Hemoglobin 10.6 g/dL (12.0-15.0); Immature Granulocyte Absolute 0.06 K/mm3 (0.00-0.031); Immature Granulocyte Percent A 0.7 % (0-0.5); Immature Platelet Fraction Pct 4.8 % (0.9-11.2); Lymphocytes Absolute Auto 1.57 K/mm3 (0.9-3.2); Lymphocytes Percent Auto 19.3 % (18.3-44.2); Mean Corpuscular HGB Conc 29.4 g/dl (32-36); Mean Corpuscular Hemoglobin 27.4 pg (26-34); Monocytes Absolute Auto 0.5 K/mm3 (0.1-0.6); Neutrophils Percent Auto 73.2 % (45.5-73.1); Platelet Count Result 140 k/mm3 (150-375); Red Blood Count 3.87 M/mm3 (4.2-5.4); Red Cell Distribution Width 15.1 % (11.5-14.5); White Blood Count 8.1 K/mm3 (4.5-10.0)
[2024-04-01 05:50] LABS: Alanine Aminotransferase 73 U/L (6-35); Albumin Level 3.5 g/dL (3.5-5.1); Alkaline Phosphatase 78 U/L (38-126); Anion Gap -3 mmol/L (4-12); Aspartate Amino Transferase 73 U/L (14-36); Bilirubin,Total 0.4 mg/dL (0.2-1.3); Blood Urea Nitrogen 20 mg/dL (7-17); Calcium 8.7 mg/dL (8.4-10.2); Carbon Dioxide 36 mmol/L (22-30); Chloride 103 mmol/L (98-107); Estimated CRCL calculation 76 ml/min; Estimated Glomerular Filt Rate > 60; Glucose 108 mg/dL (65-110); Potassium 4.3 mmol/L (3.4-5.0); Sodium 136 mmol/L (137-145)
[2024-04-01 06:31] LABS: Hypochromasia 1+; Platelet Estimate Adequate (Adequate); Schistocytes None Seen
[2024-04-01 07:42] LABS: Glucose Point of Care 107 mg/dl (65-105)
[2024-04-01] MEDS: ARIPiprazole 2 MG TABLET PO (08:22)
[2024-04-01] MEDS: APIXABAN 5 MG TABLET PO ×2 (08:22→21:22)
[2024-04-01] MEDS: guaiFENesin 12 HR 600 MG TABCR PO ×2 (08:22→21:22)
[2024-04-01] MEDS: CHOLECALCIFEROL 1,000 UNITS TABLET 2000 UNITS PO (08:23)
[2024-04-01] MEDS: ESCITALOPRAM OXALATE 10 MG TABLET 20 MG PO (08:23)
[2024-04-01] MEDS: FERROUS SULFATE 325 MG TABLET DR PO (08:23)
[2024-04-01] MEDS: THERAPEUTIC MULTIVITAMINS/MINERALS TAB (*BKC) 1 TABLET PO (08:23)
[2024-04-01] MEDS: PANTOPRAZOLE 40 MG TABLET PO (08:24)
[2024-04-01] MEDS: CYANOCOBALAMIN 250 MCG TABLET PO (08:24)
[2024-04-01] MEDS: PRIMIDONE 50 MG TABLET PO ×2 (08:24→16:29)
[2024-04-01] MEDS: predniSONE 20 MG TABLET 40 MG PO (08:25)
[2024-04-01] MEDS: busPIRone HCL 10 MG TABLET PO ×3 (08:25→16:29)
[2024-04-01] MEDS: GABAPENTIN 300 MG CAPSULE 600 MG PO ×3 (08:25→16:29)
[2024-04-01] MEDS: NITROFURANTOIN MONOHYD MACROCR 100 MG CAP PO ×2 (08:25→21:24)
[2024-04-01] MEDS: SENNOSIDES 8.6 MG TABLET PO ×2 (08:25→16:29)
[2024-04-01] MEDS: TAMOXIFEN CITRATE (*CHEMO) 10 MG TABLET 20 MG PO (08:26)
[2024-04-01] MEDS: ARIPiprazole 5 MG TABLET PO (08:26)
[2024-04-01] MEDS: MEMANTINE 10 MG TABLET PO ×2 (08:26→21:24)
[2024-04-01] MEDS: PYRIDOXINE HCL 25 MG TABLET PO (08:26)
[2024-04-01] MEDS: polyethylene glycoL 3350 17 GM POWD.PACK PO (08:28)
[2024-04-01] MEDS: FUROSEMIDE 40 MG TABLET PO (11:55)
[2024-04-01] MEDS: METOPROLOL TARTRATE 6.25 MG TABLET PO ×2 (11:55→21:22)
[2024-04-01] MEDS: AMIODARONE HCL 200 MG TABLET PO (11:55)
[2024-04-01 11:57] LABS: Glucose Point of Care 262 mg/dl (65-105)
[2024-04-01] MEDS: INSULIN ASPART (*BKC) 100 UNITS/ML SUB-Q ×3 (12:21→21:26)
--- NOTE | 2024-04-01 14:29 | P.PNIM_ITS ---
Progress Note: A&P Assessment and Plan (1) Pneumonia: Qualifiers: Laterality: unspecified laterality Lung location: unspecified part of lung Pneumonia type: due to unspecified organism Qualified Code(s): J18.9 - Pneumonia, unspecified organism Code(s): J18.9 - Pneumonia, unspecified organism Status: Acute Assessment and Plan: * Patient has chronic hypoxic respiratory failure due to COPD, currently complicated by probable pneumonia. * Patient with likely COPD exacerbation but she's currently on antibiotics for possible pneumonia. * Currently on 02@3LNC which is her baseline. * Currently on Levofloxacin 750 mg PO daily, 1 dose remaining. * Urine negative for Legionella antigen, pneumococcal antigen still pending. (2) COPD (chronic obstructive pulmonary disease): Qualifiers: COPD type: COPD with acute lower respiratory infection Qualified Code(s): J44.0 - Chronic obstructive pulmonary disease with (acute) lower respiratory infection Code(s): J44.9 - Chronic obstructive pulmonary disease, unspecified Status: Acute Assessment and Plan: * Patient on CPT with Acapella and encouraged with pulmonary toileting. * Continue scheduled nebulizer treatments-Ipratropium * Patient given 1 dose of Solu-Medrol on admission. * Continue prednisone, taper dose. * Continue O2 to maintain sats > 90 %, currently on 3L/NC which is her baseline at home. (3) Acute UTI: Code(s): N39.0 - Urinary tract infection, site not specified Status: Acute Assessment and Plan: * Urine cloudy, trace protein, trace ketones, nitrate positive. Leuko 1+ * Urine culture grew E. coli * Continue Nitrofurantoin per sensitivities. * Encouraged with water intake. (4) Atrial fibrillation: Code(s): I48.91 - Unspecified atrial fibrillation Status: Acute Assessment and Plan: - Currently in SR. - Continue Toprol, Eliquis and amiodarone. - Continue tele monitoring. (5) Chronic constipation: Code(s): K59.09 - Other constipation Status: Acute Assessment and Plan: * Colace enema given 03/27- patient had 2 normal bowel movements per nurse. * Miralax 17 gm PO daily and Senna 8.6 mg PO BID. * Monitor stools and record. (6) Chronic anticoagulation: Code(s): Z79.01 - ferry terminal agent (current) use of anticoagulants Status: Acute Assessment and Plan: * Apixaban 5 mg PO q 12. (7) Chronic hypoxic respiratory failure, on home oxygen therapy: Code(s): J96.11 - Chronic respiratory failure with hypoxia; Z99.81 - Dependence on supplemental oxygen Status: Acute Assessment and Plan: * Currently on 02@3LNC at home. * Currently on home dose supplemental O2. (8) Bradycardia: Code(s): R00.1 - Bradycardia, unspecified Status: Acute Assessment and Plan: * Cardiology following. Currently on metoprolol and amiodarone; * Toprol dose adjusted per cardiology. * Still with some episodes of anne but improving. * Continue to adjust meds as needed. Time Spent With Patient Time with patient: 15 - 25 minutes Subjective Date/time seen: 04/01/24 10:29 Patient calm on bedrest and states she feels alright, denies any acute distress. Interval history: Patient has a Hx of A-Fib and was admitted for PNA. Patient noted with episodes of bradycardia and hypotension. Seen by cardiology and BP meds dosages adjusted. Review of Systems Review of Systems: All systems reviewed & are unremarkable except as noted in HPI and below Exam Narrative: General: Fair appearing, generalized muscle weak[ness. HEENT: Atraumatic, PERRL, EOM, moist mucosa. NECK: Supple. Lungs: Diminished bilaterally. HEART: Irregularly irregular, no murmurs. Abdomen: Soft, non-tender, non-distended, +ve bowel sounds X4 quadrants. Extremities: Acyanotic, no edema. Skin: Warm and dry. No open lesions noted. Neuro: Fairly oriented, CN II-XII grossly intact. Psych: Pleasant and co-operative. Objective Data Vital Signs Vital Signs: Vital Signs - 24 hr 03/31/24 15:04 03/31/24 15:10 03/31/24 16:00 Temperature 97.5 F L Pulse Rate 60 61 65 Respiratory Rate 20 20 18 Blood Pressure 105/54 L Pulse Oximetry 97 Oxygen Delivery Oxygen Flow Rate 03/31/24 16:03 03/31/24 20:00 03/31/24 20:00 Temperature 98.4 F Pulse Rate 616 H 63 Respiratory Rate 18 Blood Pressure 114/94 H Pulse Oximetry 98 98 Oxygen Delivery Nasal Cannula Oxygen Flow Rate 3 03/31/24 20:00 03/31/24 20:30 03/31/24 20:38 Temperature Pulse Rate 65 63 56 L Respiratory Rate 20 Blood Pressure Pulse Oximetry Oxygen Delivery Oxygen Flow Rate 03/31/24 20:41 03/31/24 20:48 03/31/24 23:37 Temperature 98.1 F Pulse Rate 61 60 Respiratory Rate 20 18 Blood Pressure 127/87 Pulse Oximetry 98 98 Oxygen Delivery Nasal Cannula Oxygen Flow Rate 2 04/01/24 00:00 04/01/24 02:33 04/01/24 02:46 Temperature Pulse Rate 54 L 59 L 61 Respiratory Rate 20 Blood Pressure Pulse Oximetry Oxygen Delivery Oxygen Flow Rate 04/01/24 04:00 04/01/24 04:00 04/01/24 07:30 Temperature 97.7 F Pulse Rate 56 L 70 Respiratory Rate 18 Blood Pressure 113/94 H Pulse Oximetry 97 99 Oxygen Delivery Nasal Cannula Oxygen Flow Rate 3 04/01/24 07:30 04/01/24 08:00 04/01/24 08:18 Temperature 97.3 F L Pulse Rate 61 57 L Respiratory Rate 20 18 Blood Pressure 95/75 L Pulse Oximetry 99 99 Oxygen Delivery Nasal Cannula Oxygen Flow Rate 2 04/01/24 11:55 04/01/24 12:00 04/01/24 14:05 Temperature 97.5 F L Pulse Rate 68 68 72 Respiratory Rate 18 18 Blood Pressure 101/85 Pulse Oximetry 99 Oxygen Delivery Oxygen Flow Rate Intake/Output Intake/Output: Intake & Output 03/29/24 03/30/24 03/31/24 04/01/24 23:59 23:59 23:59 23:59 Intake Total 2810 2860 600 480 Output Total 2200 3400 4500 1380 Balance 610 540 -3900 -900 Meds/Results Medications: Active Medications Generic Name Dose Route Start Last Admin Trade Name Freq PRN Reason Stop Dose Admin Acetaminophen 500 mg 03/27/24 07:16 03/29/24 20:02 Acetaminophen 500 Mg Tablet PO 500 mg Q6H PRN Administration Mild Pain (1-3) or Fever Al Hydrox/Mg Hydrox/Simethicone 5 ml 03/27/24 07:14 Mag Hydrox/Al Hydrox/Simeth 30 Ml Udc PO Q6H PRN Heartburn Amiodarone HCl 200 mg 03/31/24 08:00 04/01/24 11:55 Amiodarone Hcl 200 Mg Tablet PO 200 mg DAILY@0800 NICOLE Administration Apixaban 5 mg 03/27/24 09:00 04/01/24 08:22 Apixaban 5 Mg Tablet PO 5 mg Q12HR NICOLE Administration Aripiprazole 5 mg 03/27/24 09:00 04/01/24 08:26 Aripiprazole 5 Mg Tablet PO 5 mg DAILY NICOLE Administration Aripiprazole 2 mg 03/27/24 09:00 04/01/24 08:22 Aripiprazole 2 Mg Tablet PO 2 mg DAILY NICOLE Administration Benzocaine 1 lozenge 03/30/24 15:18 Benzocaine/Menthol (*Bkc) 18 Ea Lozenge PO PRN PRN Sore Throat Buspirone HCl 10 mg 03/27/24 09:00 04/01/24 12:20 Buspirone Hcl 10 Mg Tablet PO 10 mg TID NICOLE Administration Calcium Carbonate 400 mg 03/27/24 07:14 Calcium Carbonate (Tums) 500 Mg (200 Mg Elemental) PO Q8H PRN Heartburn Cyanocobalamin 250 mcg 03/27/24 09:00 04/01/24 08:24 Cyanocobalamin 250 Mcg Tablet PO 250 mcg DAILY NICOLE Administration Dextrose 12.5 gm 03/27/24 07:19 Dextrose 50% 25 Gm/50 Ml Syringe IV PUSH PRN PRN Hypoglycemia Protocol Escitalopram Oxalate 20 mg 03/27/24 09:00 04/01/24 08:23 Escitalopram Oxalate 10 Mg Tablet PO 20 mg DAILY NICOLE Administration Ferrous Sulfate 325 mg 03/27/24 09:00 04/01/24 08:23 Ferrous Sulfate [address] PO 04/26/24 08:59 325 mg DAILY NICOLE Administration Furosemide 40 mg 03/27/24 09:00 04/01/24 11:55 Furosemide 40 Mg Tablet PO 40 mg DAILY NICOLE Administration Gabapentin 600 mg 03/27/24 09:00 04/01/24 12:20 Gabapentin 300 Mg Capsule PO 600 mg TID NICOLE Administration Glucagon 1 mg 03/27/24 07:19 Glucagon For Inj 1 Mg Vial IM PRN PRN Hypoglycemia Protocol Glucose 15 gm 03/27/24 07:19 Glucose Oral Gel 15 Gm Of Glucse In 37.5 Gm Tube PO PRN PRN Hypoglycemia Protocol Guaifenesin 600 mg 03/27/24 21:00 04/01/24 08:22 Guaifenesin 12 Hr 600 Mg Tabcr PO 04/03/24 20:59 600 mg Q12HR NICOLE Administration Dextrose 1,000 mls @ 100 mls/hr 03/27/24 07:19 Dextrose 5% 1,000 Ml IVPB PRN PRN Hypoglycemia Protocol Insulin Aspart 3 - 6 units 03/27/24 08:00 04/01/24 12:21 Insulin Aspart (*Bkc) 100 Units/Ml SUB-Q 4 units TIDWM NICOLE Administration Protocol Insulin Aspart 1 - 3 units 03/27/24 21:00 03/31/24 20:25 Insulin Aspart (*Bkc) 100 Units/Ml SUB-Q 2 units HS NICOLE Administration Protocol Ipratropium [place] 0.5 mg 03/27/24 20:00 04/01/24 14:04 Ipratropium Br 0.02% Inh Soln 0.5 Mg/2.5 Ml Vial INHALATION 0.5 mg Q6HRT NICOLE Administration Levofloxacin 750 mg 03/29/24 21:00 03/31/24 20:31 Levofloxacin 750 Mg Tablet PO 04/01/24 21:01 750 mg DAILY@2100 NICOLE Administration Lorazepam 0.5 mg 03/27/24 21:00 03/31/24 20:31 Lorazepam (*Crx) 0.5 Mg Tablet PO 0.5 mg QHS NICOLE Administration Losartan Potassium 12.5 mg 03/27/24 09:00 04/01/24 10:09 Losartan Potassium 12.5 Mg Tablet PO Not Given DAILY NICOLE Magnesium Hydroxide 30 ml 03/27/24 07:14 Magnesium Hydroxide Susp 30 Ml Udc PO Q6H PRN Constipation Memantine 10 mg 03/27/24 09:00 04/01/24 08:26 Memantine 10 Mg Tablet PO 10 mg Q12HR NICOLE Administration Metoprolol Tartrate 6.25 mg 03/30/24 21:00 04/01/24 11:55 Metoprolol Tartrate 6.25 Mg Tablet PO 6.25 mg Q12HR NICOLE Administration Multivitamins/Calcium 1 tablet 03/27/24 09:00 04/01/24 08:23 Therapeutic Multivitamins/Minerals Tab (*Bkc) PO 1 tablet DAILY NICOLE Administration Nitrofurantoin Macrocrystals 100 mg 03/30/24 21:00 04/01/24 08:25 Nitrofurantoin Monohyd Macrocr 100 Mg Cap PO 100 mg Q12HR NICOLE Administration Ondansetron HCl 4 mg 03/27/24 10:35 Ondansetron Inj 4 Mg/2 Ml Vial IV PUSH Q6HR PRN Nausea And Vomiting Pantoprazole Sodium 40 mg 03/27/24 09:00 04/01/24 08:24 Pantoprazole 40 Mg Tablet PO 40 mg QAM NICOLE Administration Polyethylene Glycol 17 gm 03/27/24 09:00 04/01/24 08:28 Polyethylene Glycol 3350 17 Gm Powd.Pack PO 17 gm QAM NICOLE Administration Prednisone 40 mg 03/31/24 08:00 04/01/24 08:25 Prednisone 20 Mg Tablet PO 04/05/24 07:59 40 mg DAILY@0800 NICOLE Administration Primidone 50 mg 03/27/24 09:00 04/01/24 08:24 Primidone 50 Mg Tablet PO 50 mg BID NICOLE Administration Pyridoxine HCl 25 mg 03/27/24 09:00 04/01/24 08:26 Pyridoxine Hcl 25 Mg Tablet PO 25 mg DAILY NICOLE Administration Ropinirole HCl 0.5 mg 03/27/24 21:00 03/31/24 20:31 Ropinirole Hcl 0.5 Mg Tablet PO 0.5 mg QHS NICOLE Administration Senna 8.6 mg 03/27/24 09:00 04/01/24 08:25 Sennosides 8.6 Mg Tablet PO 8.6 mg BID NICOLE Administration Tamoxifen Citrate 20 mg 03/27/24 09:00 04/01/24 08:26 Tamoxifen Citrate (*Chemo) 10 Mg Tablet PO 04/26/24 08:59 20 mg DAILY NICOLE Administration Tramadol HCl 50 mg 03/27/24 07:14 03/31/24 20:31 Tramadol Hcl (*Crx) 50 Mg Tablet PO 50 mg QID PRN Administration Pain 4-10 Trazodone HCl 50 mg 03/27/24 21:00 03/31/24 20:32 Trazodone Hcl 50 Mg Tablet PO 50 mg QHS NICOLE Administration Vitamin D 2,000 units 03/27/24 09:00 04/01/24 08:23 Cholecalciferol 1,000 Units Tablet PO 2,000 units DAILY NICOLE Administration Radiology Results: ITS Impressions Chest X-Ray 03/26/24 21:12 IMPRESSION: 1. Emphysema. Abdomen X-Ray 03/27/24 17:27 IMPRESSION: Nonspecific abdomen; no evidence of bowel obstruction Labs Labs: Laboratory Results - last 24 hr 03/31/24 03/31/24 04/01/24 16:33 20:05 05:21 WBC 8.1 RBC 3.87 L Hgb 10.6 L Hct 36.0 L MCV 93.0 MCH 27.4 MCHC 29.4 L RDW 15.1 H Plt Count 140 L MPV 11.0 H Immature Gran % (Auto) 0.7 H Neut % (Auto) 73.2 H Lymph % (Auto) 19.3 [place] % (Auto) 6.0 Eos % (Auto) 0.4 Baso % (Auto) 0.4 Lymph # (Auto) 1.57 [place] # (Auto) 0.5 Eos # (Auto) 0.0 Baso # (Auto) 0.0 Abs Immat Gran (auto) 0.06 H Absolute Neuts (auto) 6.0 Absolute Nucleated RBC 0.000 Nucleated RBC % 0.0 Platelet Estimate Adequate % Immature Plt Fraction 4.8 Hypochromasia 1+ Schistocytes None seen Sodium 136 L Potassium 4.3 Chloride 103 Carbon Dioxide 36 H Anion Gap -3 L BUN 20 H Creatinine 0.70 Estim Creat Clear Calc 76 Estimated GFR > 60 Glucose 108 POC Capillary Glucose 346 H 263 H Calcium 8.7 Total Bilirubin 0.4 AST 73 H ALT 73 H Alkaline Phosphatase 78 Total Protein 6.0 L Albumin 3.5 04/01/24 04/01/24 07:25 11:55 WBC RBC Hgb Hct MCV MCH MCHC RDW Plt Count MPV Immature Gran % (Auto) Neut % (Auto) Lymph % (Auto) [place] % (Auto) Eos % (Auto) Baso % (Auto) Lymph # (Auto) [place] # (Auto) Eos # (Auto) Baso # (Auto) Abs Immat Gran (auto) Absolute Neuts (auto) Absolute Nucleated RBC Nucleated RBC % Platelet Estimate % Immature Plt Fraction Hypochromasia Schistocytes Sodium Potassium Chloride Carbon Dioxide Anion Gap BUN Creatinine Estim Creat Clear Calc Estimated GFR Glucose POC Capillary Glucose 107 H 262 H Calcium Total Bilirubin AST ALT Alkaline Phosphatase Total Protein Albumin Quality VTE Prophylaxis VTE prophylaxis: pharmacologic ordered (Continue home Eliquis) Hospitalist MIPS Advance Care Plan I have confirmed that the patient's Advanced Care Plan is present, code status is documented, or surrogate decision maker is listed in patient medical record.: Yes Medication Reconciliation I have utilized all available resources to obtain, update and review the patients current medications (includes all prescriptions, OTC, herbals, cannabis, and nutritional supplements).: Yes
[2024-04-01 16:47] LABS: Glucose Point of Care 367 mg/dl (65-105)
[2024-04-01 17:48] LABS: Pneumococcal Antigen Urine NOT DETECTED
[2024-04-01] MEDS: rOPINIRole HCL 0.5 MG TABLET PO (21:22)
[2024-04-01] MEDS: LORazepam (*CRX) 0.5 MG TABLET PO (21:22)
[2024-04-01 21:24] LABS: Glucose Point of Care 247 mg/dl (65-105)
[2024-04-01] MEDS: traZODone HCL 50 MG TABLET PO (21:24)
[2024-04-01] MEDS: levoFLOXacin 750 MG TABLET PO (21:24)
[2024-04-02] VITALS (17 sets, daily range): BP systolic 105–156; BP diastolic 53–82; PULSE 50–76; RESP 18–20; TEMP 36.1–36.5; O2SAT 84–98
[2024-04-02] MEDS: IPRATROPIUM BR 0.02% INH SOLN 0.5 MG/2.5 ML VIAL INHALATION ×3 (02:23→13:36)
[2024-04-02 05:26] LABS: Basophils Percent Auto 0.2 % (0.2-1.2); Eosinophils Absolute Auto 0.1 K/mm3 (0-0.3); Eosinophils Percent Auto 0.6 % (0-4.4); Hematocrit 34.7 % (37.0-47.0); Hemoglobin 10.4 g/dL (12.0-15.0); Immature Granulocyte Absolute 0.09 K/mm3 (0.00-0.031); Lymphocytes Absolute Auto 1.76 K/mm3 (0.9-3.2); Lymphocytes Percent Auto 20.3 % (18.3-44.2); Mean Corpuscular Hemoglobin 27.5 pg (26-34); Mean Corpuscular Volume 91.8 fl (80-100); Mean Platelet Volume 10.6 fl (7.4-10.4); Monocytes Absolute Auto 0.5 K/mm3 (0.1-0.6); Monocytes Percent Auto 5.7 % (2.6-8.5); Neutrophils Absolute Auto 6.3 K/mm3 (1.3-6.7); Neutrophils Percent Auto 72.2 % (45.5-73.1); Platelet Count Result 172 k/mm3 (150-375); Red Blood Count 3.78 M/mm3 (4.2-5.4); Red Cell Distribution Width 15.2 % (11.5-14.5); White Blood Count 8.7 K/mm3 (4.5-10.0)
[2024-04-02 05:37] LABS: Alanine Aminotransferase 67 U/L (6-35); Albumin Level 3.4 g/dL (3.5-5.1); Alkaline Phosphatase 77 U/L (38-126); Anion Gap 0 mmol/L (4-12); Aspartate Amino Transferase 57 U/L (14-36); Bilirubin,Total 0.4 mg/dL (0.2-1.3); Blood Urea Nitrogen 20 mg/dL (7-17); Calcium 8.7 mg/dL (8.4-10.2); Carbon Dioxide 36 mmol/L (22-30); Chloride 102 mmol/L (98-107); Estimated CRCL calculation 76 ml/min; Estimated Glomerular Filt Rate > 60; Glucose 109 mg/dL (65-110); Potassium 3.9 mmol/L (3.4-5.0); Sodium 138 mmol/L (137-145)
[2024-04-02 07:54] LABS: Glucose Point of Care 114 mg/dl (65-105)
[2024-04-02] MEDS: METOPROLOL TARTRATE 6.25 MG TABLET PO (09:22)
[2024-04-02] MEDS: PYRIDOXINE HCL 25 MG TABLET PO (09:22)
[2024-04-02] MEDS: CHOLECALCIFEROL 1,000 UNITS TABLET 2000 UNITS PO (09:23)
[2024-04-02] MEDS: ARIPiprazole 2 MG TABLET PO (09:23)
[2024-04-02] MEDS: APIXABAN 5 MG TABLET PO (09:23)
[2024-04-02] MEDS: guaiFENesin 12 HR 600 MG TABCR PO (09:23)
[2024-04-02] MEDS: MEMANTINE 10 MG TABLET PO (09:23)
[2024-04-02] MEDS: ARIPiprazole 5 MG TABLET PO (09:23)
[2024-04-02] MEDS: busPIRone HCL 10 MG TABLET PO ×2 (09:24→12:25)
[2024-04-02] MEDS: AMIODARONE HCL 200 MG TABLET PO (09:24)
[2024-04-02] MEDS: FERROUS SULFATE 325 MG TABLET DR PO (09:24)
[2024-04-02] MEDS: NITROFURANTOIN MONOHYD MACROCR 100 MG CAP PO (09:24)
[2024-04-02] MEDS: GABAPENTIN 300 MG CAPSULE 600 MG PO ×2 (09:24→12:25)
[2024-04-02] MEDS: TAMOXIFEN CITRATE (*CHEMO) 10 MG TABLET 20 MG PO (09:25)
[2024-04-02] MEDS: CYANOCOBALAMIN 250 MCG TABLET PO (09:25)
[2024-04-02] MEDS: PANTOPRAZOLE 40 MG TABLET PO (09:25)
[2024-04-02] MEDS: SENNOSIDES 8.6 MG TABLET PO (09:25)
[2024-04-02] MEDS: PRIMIDONE 50 MG TABLET PO (09:25)
[2024-04-02] MEDS: FUROSEMIDE 40 MG TABLET PO (09:25)
[2024-04-02] MEDS: ESCITALOPRAM OXALATE 10 MG TABLET 20 MG PO (09:25)
[2024-04-02] MEDS: THERAPEUTIC MULTIVITAMINS/MINERALS TAB (*BKC) 1 TABLET PO (09:25)
[2024-04-02] MEDS: polyethylene glycoL 3350 17 GM POWD.PACK PO (09:26)
[2024-04-02] MEDS: predniSONE 20 MG TABLET 40 MG PO (09:28)
[2024-04-02 12:04] LABS: Glucose Point of Care 186 mg/dl (65-105)
--- NOTE | 2024-04-02 14:04 | P.DS_ITS ---
DS: Admitting Diagnosis Discharge Date 04/02/24 Admitting Diagnosis Shortness of Breath DS: Discharge Diagnosis Discharge Diagnosis (1) Pneumonia: Qualifiers: Laterality: unspecified laterality Lung location: unspecified part of lung Pneumonia type: due to unspecified organism Qualified Code(s): J18.9 - Pneumonia, unspecified organism Code(s): J18.9 - Pneumonia, unspecified organism Status: Acute Assessment and Plan: * Patient has chronic hypoxic respiratory failure due to COPD, currently complicated by probable pneumonia. * Patient with likely COPD exacerbation but she's currently on antibiotics for possible pneumonia. * Currently on 02@3LNC which is her baseline. * Currently on Levofloxacin 750 mg PO daily, 1 dose remaining. * Urine negative for Legionella antigen, pneumococcal antigen still pending. (2) COPD (chronic obstructive pulmonary disease): Qualifiers: COPD type: COPD with acute lower respiratory infection Qualified Code(s): J44.0 - Chronic obstructive pulmonary disease with (acute) lower respiratory infection Code(s): J44.9 - Chronic obstructive pulmonary disease, unspecified Status: Acute Assessment and Plan: * Acute on Chronic COPD * Patient on CPT with Acapella and encouraged with pulmonary toileting. * Continue scheduled nebulizer treatments-Ipratropium * Patient given 1 dose of Solu-Medrol on admission. * Continue prednisone, taper dose. * Continue O2 to maintain sats > 90 %, currently on 3L/NC which is her baseline at home. (3) Acute UTI: Code(s): N39.0 - Urinary tract infection, site not specified Status: Acute Assessment and Plan: * Urine cloudy, trace protein, trace ketones, nitrate positive. Leuko 1+ * Urine culture grew E. coli * Completed treatment with Nitrofurantoin per sensitivities. * Encouraged with water intake. (4) Atrial fibrillation: Code(s): I48.91 - Unspecified atrial fibrillation Status: Acute Assessment and Plan: - Maintains SR for the most part. - Continue Toprol, Eliquis and amiodarone. - Continue tele monitoring. (5) Chronic constipation: Code(s): K59.09 - Other constipation Status: Acute Assessment and Plan: * Patient has been having BM's inpatient with stool softeners and laxatives. * Continue Miralax 17 gm PO daily and Senna 8.6 mg PO BID. (6) Chronic anticoagulation: Code(s): Z79.01 - care home (current) use of anticoagulants Status: Acute Assessment and Plan: * Apixaban 5 mg PO q 12. (7) Chronic hypoxic respiratory failure, on home oxygen therapy: Code(s): J96.11 - Chronic respiratory failure with hypoxia; Z99.81 - Dependence on supplemental oxygen Status: Acute Assessment and Plan: * Currently on 02@3LNC at home. * Currently on home dose 2L/NC supplemental O2 with sats > 90 %. (8) Bradycardia: Code(s): R00.1 - Bradycardia, unspecified Status: Acute Assessment and Plan: * Cardiology following. Currently on metoprolol and amiodarone; * Toprol dose adjusted per cardiology. * Still with some episodes of anne but improved and asymptomatic. * Continue to adjust meds as needed. Plan Discharge to SNF DS: Summary Hospital Course Reason for hospitalization: Shortness of Breath Status at Discharge Functional status at discharge: bed bound Overall status at discharge: patient is back to baseline Time Spent with Patient Time attestation: Total time spent providing and/or coordinating discharge services: Time spent: Greater than 30 minutes Exam Narrative: General: Fair appearing, generalized muscle weak[ness. HEENT: Atraumatic, PERRL, EOM, moist mucosa. NECK: Supple. Lungs: Diminished bilaterally. HEART: Irregularly irregular, no murmurs. Abdomen: Soft, non-tender, non-distended, +ve bowel sounds X4 quadrants. Extremities: Acyanotic, no edema. Skin: Warm and dry. No open lesions noted. Neuro: Fairly oriented, CN II-XII grossly intact. Psych: Pleasant and co-operative. DS: Data Data Completed and Pending Labs on day of discharge: Labs from last 24 hours 04/02/24 04/02/24 04/02/24 11:36 07:51 05:05 WBC 8.7 RBC 3.78 L Hgb 10.4 L Hct 34.7 L MCV 91.8 MCH 27.5 MCHC 30.0 L RDW 15.2 H Plt Count 172 MPV 10.6 H Immature Gran % (Auto) 1.0 H Neut % (Auto) 72.2 Lymph % (Auto) 20.3 [place] % (Auto) 5.7 Eos % (Auto) 0.6 Baso % (Auto) 0.2 Lymph # (Auto) 1.76 [place] # (Auto) 0.5 Eos # (Auto) 0.1 Baso # (Auto) 0.0 Abs Immat Gran (auto) 0.09 H Absolute Neuts (auto) 6.3 Absolute Nucleated RBC 0.000 Nucleated RBC % 0.0 Sodium 138 Potassium 3.9 Chloride 102 Carbon Dioxide 36 H Anion Gap 0 L BUN 20 H Creatinine 0.70 Estim Creat Clear Calc 76 Estimated GFR > 60 Glucose 109 POC Capillary Glucose 186 H 114 H Calcium 8.7 Total Bilirubin 0.4 AST 57 H ALT 67 H Alkaline Phosphatase 77 Total Protein 6.0 L Albumin 3.4 L Urine Pneumococcal Ag 04/01/24 04/01/24 03/27/24 21:20 16:40 11:55 WBC RBC Hgb Hct MCV MCH MCHC RDW Plt Count MPV Immature Gran % (Auto) Neut % (Auto) Lymph % (Auto) [place] % (Auto) Eos % (Auto) Baso % (Auto) Lymph # (Auto) [place] # (Auto) Eos # (Auto) Baso # (Auto) Abs Immat Gran (auto) Absolute Neuts (auto) Absolute Nucleated RBC Nucleated RBC % Sodium Potassium Chloride Carbon Dioxide Anion Gap BUN Creatinine Estim Creat Clear Calc Estimated GFR Glucose POC Capillary Glucose 247 H 367 H Calcium Total Bilirubin AST ALT Alkaline Phosphatase Total Protein Albumin Urine Pneumococcal Ag Not detected Discharge Plan Discharge Attending physician on discharge: Shahab Fernandez Consulting providers: Karthik Pichardo; Aris Cid Discharging Clinician: Heber English Anticipated Discharge Date/Time: 04/02/24 14:11 Patient Disposition: SNF Activity: as tolerated Diet: heart healthy Patient Instructions: Heart Failure (GEN), Safe Use of Anticoagulants (GEN) Patient Language: Armenian Stand Alone Forms: General Discharge Information Follow-up/Referrals: Becky Villa APN-C [Advanced Practice Nurse] - Call for Appointment Discharge Medications: New metoprolol tartrate 25 mg tablet 6.25 mg PO BID Qty: 30 0RF prednisone 20 mg Tablet 50 mg PO DAILY@0800 Qty: 4 0RF metoprolol tartrate 25 mg tablet 6.25 mg PO BID Qty: 30 0RF guaifenesin [Mucus Relief ER] 600 mg Tablet Extended Release 12hr 600 mg PO Q12HR Qty: 10 0RF Continued ipratropium-albuterol 0.5 mg-3 mg(2.5 mg base)/3 mL Solution For Nebulization 3 ml INHALATION Q6H PRN (Reason: sob/wheezing) cyanocobalamin (vitamin B-12) 250 mcg Tablet 250 mcg PO DAILY pantoprazole 40 mg Tablet,Delayed Release (Dr/Ec) 40 mg PO QAM calcium carbonate 200 mg calcium (500 mg) Tablet,Chewable 400 mg PO Q8H PRN (Reason: Heartburn) Multiple Vitamin-Minerals Tablet 1 tablet PO DAILY polyethylene glycol 3350 [Miralax] 17 gram/dose Powder 17 g PO HS PRN (Reason: Constipation) ondansetron 4 mg Tablet,Disintegrating 4 mg PO Q8H PRN (Reason: Nausea And Vomiting) alum-mag hydroxide-simeth [Maalox Maximum Strength] 400-400-40 mg/5 mL Suspension 5 ml PO Q6H PRN (Reason: Heartburn) magnesium hydroxide [Milk Of Magnesia Concentrated] 2,400 mg/10 mL Suspension 30 ml PO Q6H PRN (Reason: Constipation) naloxone [Narcan] 4 mg/actuation [place],Non-Aerosol 1 spray INTRANASAL Q2-3M PRN (Reason: Opiate Reversal) Rx Instructions: spray 1 dose into ONE nostril; alternate nostrils w each dose until help arrives sennosides [senna] 8.6 mg Tablet 8.6 mg PO BID pyridoxine (vitamin B6) 25 mg Tablet 25 mg PO DAILY amiodarone [Pacerone] 200 mg Tablet 200 mg PO BID Qty: 60 0RF Eliquis 5 mg Tablet 5 mg PO Q12HR Qty: 60 0RF losartan 25 mg tablet 12.5 mg PO DAILY Qty: 30 0RF metoprolol tartrate 25 mg tablet 12.5 mg PO BID Qty: 30 0RF furosemide 40 mg tablet 40 mg PO DAILY metformin 500 mg tablet 500 mg PO DAILY primidone 50 mg tablet 50 mg PO BID gabapentin 600 mg tablet 600 mg PO TID trazodone 50 mg tablet 50 mg PO QHS acetaminophen 650 mg Tablet 650 mg PO TID tramadol 50 mg tablet 50 mg PO QID lorazepam 0.5 mg tablet 0.5 mg PO QHS ferrous sulfate 325 mg (65 mg iron) Tablet 325 mg PO DAILY ropinirole 0.5 mg tablet 0.5 mg PO QHS buspirone 10 mg tablet 10 mg PO TID albuterol sulfate 90 mcg/actuation HFA aerosol inhaler 2 puff INHALATION Q4H PRN (Reason: Shortness Of Breath Or Wheezing) tamoxifen 20 mg tablet 20 mg PO DAILY cholecalciferol (vitamin D3) [Vitamin D3] 25 mcg (1,000 unit) Capsule 25 mcg PO DAILY Rx Instructions: 2 caps daily escitalopram oxalate 10 mg tablet 20 mg PO DAILY insulin aspart U-100 100 unit/mL (3 mL) insulin pen See Rx Instructions .ROUTE .COMPLEX Rx Instructions: Breakfast and Dinner SSI 141-180=2Units,181-220=4units,221-260=6units,261-300=8units,301-400=14units aripiprazole 5 mg tablet 5 mg PO DAILY Rx Instructions: takes with 2mg tab memantine 10 mg tablet 10 mg PO BID aripiprazole 2 mg tablet 2 mg PO DAILY Rx Instructions: takes with 5mg tab nystatin 100,000 unit/gram Powder 1 applic TOPICAL PRN PRN (Reason: Antifungal ) Novolog FlexPen U-100 Insulin 2 - 14 units BID Rx Instructions: <140 give 0. 141-180 give 2 units 181-220 give 4 units 221-260 give 6 units 261-300 give 8 units. 301-400 give 14 units. >400 call MD Date of admission: 03/27/24 00:49 Primary Care Provider: PHYSICIAN,SCHEDULE HANGER Admitting Provider: Anaya Castle Attending physician on admission: Anaya Castle Condition: Stable Quality VTE Prophylaxis VTE prophylaxis: pharmacologic ordered (Continue home Eliquis) Hospitalist MIPS Heart Failure (Exclusion) Patient has history of Heart Transplant or Left Ventricular Assistive Device?: No IF YES, STOP HERE Heart Failure (Qualifier) Patient has current or prior documentation of LVEF less than or equal to 40%, or mod/servere depressed LVSF?: No IF NO, STOP HERE
== END 2024-04-02 16:05 | DRG 194 ==
LOC: ANHED 03-27 00:49 → ANH2MED 03-27 02:10
PROVIDERS: Nurse Practitioner Family; Admitting Provider Internal Medicine; Emergency Provider Emergency Medicine; Visit Provider Nurse Practitioner Adult Health
DX: J18.9 Pneumonia, unspecified organism (principal); I48.20 Chronic atrial fibrillation, unspecified; J44.0 Chronic obstructive pulmonary disease with (acute) lower respiratory infection; J44.1 Chronic obstructive pulmonary disease with (acute) exacerbation; J96.11 Chronic respiratory failure with hypoxia; N39.0 Urinary tract infection, site not specified; K76.6 Portal hypertension; I50.9 Heart failure, unspecified; E11.9 Type 2 diabetes mellitus without complications; K74.60 Unspecified cirrhosis of liver; K21.9 Gastro-esophageal reflux disease without esophagitis; K31.89 Other diseases of stomach and duodenum; K59.09 Other constipation; R00.1 Bradycardia, unspecified; R13.10 Dysphagia, unspecified; G25.0 Essential tremor; G25.81 Restless legs syndrome; F29 Unspecified psychosis not due to a substance or known physiological condition; F03.90 Unspecified dementia, unspecified severity, without behavioral disturbance, psychotic disturbance, mood disturbance, and anxiety; F41.9 Anxiety disorder, unspecified; F32.A Depression, unspecified; Z20.822 Contact with and (suspected) exposure to COVID-19; Z79.4 Long term (current) use of insulin; Z79.01 Long term (current) use of anticoagulants; Z85.3 Personal history of malignant neoplasm of breast; Z99.3 Dependence on wheelchair; Z99.81 Dependence on supplemental oxygen; Z87.891 Personal history of nicotine dependence
CPT/HCPCS: 36415; 71045; 74018; 80053; 80202; 81001; 82565; 82803; 82948; 83605; 83690; 83735; 83880; 84100; 84443; 84484; 85025; 85055; 85610; 85730; 87040; 87070; 87086; 87186; 87205; 87449; 87637; 87641; 87899; 93005; 93308; 94640; 94667; 94668; 96365; 96367; 96375; 99285; A9270; C8924; J0692; J1815; J2919; J3370; J7030; J7040; J7512; Q9957

== ENCOUNTER 2024-04-09 22:41 | Emergency (ER) | payer MEDICARE, MEDICAID, SELFPAY ==
--- NOTE | ~2024-04-09 | XR_ITS ---
EXAMINATION: XR chest 1V portable DATE: 04/09/2024 23:22 INDICATION: Shortness of breath. TECHNIQUE: A single frontal view of the chest was obtained. COMPARISON: Chest single view 03/26/2024 FINDINGS: A calcified right lung nodule and calcified hilar lymph nodes are consistent with old granu lomatous disease. There are lucencies in the lungs, consistent with emphysema. There are airspace opa cities in right lower lung zone. No pleural effusion or pneumothorax. The heart size is normal. There is a left internal jugular port with tip in superior vena cava. IMPRESSION: 1. Emphysema. 2. Airspace opacities in right lower lung zone, likely atelectasis. Reviewed, dictated and finalized at location A. SIT POLICE OFFICER
[2024-04-09 22:42] VITALS: BP 102/65; PULSE 67; RESP 18; TEMP 35.6; O2SAT 97
--- NOTE | 2024-04-09 23:01 | ECG_ITS ---
Test Date: 2024-04-09 22:50:49 Measurements Intervals [place] Rate: 63 P: 74 [place]: 164 QRS: -3 QRSD: 98 T: 109 QT: 432 QTc: 443 Interpretive Statements SINUS RHYTHM artifact Compared to ECG 03/29/2024 00:14:53 artifact is new Electronically Signed On 04-10-2024 10:20:30 DROSOPHERE OPERATOR by Paco Layton M.D.
--- NOTE | 2024-04-09 23:13 | ED.SOB ---
HPI - SOB/Dyspnea General Chief Complaint: Shortness of Breath/Dyspnea Stated Complaint: sob Time Seen by Provider: 04/09/24 22:48 Source: patient Mode of arrival: EMS Limitations: dementia History of Present Illness HPI Narrative: This is a 73-year-old female that presents to the emergency department for shortness of breath. Ongoing over the last couple of days. Associated with a productive cough. Also reports substernal chest discomfort. Denies fevers. Related Data Home Medications ?Medication ?Instructions ?Recorded ?Confirmed ?Last Taken ?Type acetaminophen 650 mg tablet 650 mg PO TID 10/28/23 03/27/24 Unknown History albuterol sulfate 90 mcg/actuation 2 puff inhalation Q4H PRN 10/28/23 03/27/24 Unknown History aerosol inhaler Shortness Of Breath Or Wheezing aripiprazole 2 mg tablet 2 mg PO DAILY 10/28/23 03/27/24 Unknown History aripiprazole 5 mg tablet 5 mg PO DAILY 10/28/23 03/27/24 Unknown History buspirone 10 mg tablet 10 mg PO TID 10/28/23 03/27/24 Unknown History cholecalciferol (vitamin D3) 25 25 mcg PO DAILY 10/28/23 03/27/24 Unknown History mcg (1,000 unit) capsule (Vitamin D3) escitalopram oxalate 10 mg tablet 20 mg PO DAILY 10/28/23 03/27/24 Unknown History ferrous sulfate 325 mg (65 mg 325 mg PO DAILY 10/28/23 03/27/24 Unknown History iron) tablet furosemide 40 mg tablet 40 mg PO DAILY 10/28/23 03/27/24 Unknown History gabapentin 600 mg tablet 600 mg PO TID 10/28/23 03/27/24 Unknown History insulin aspart U-100 100 unit/mL See Rx Instructions .Route .COMPLEX 10/28/23 03/27/24 Unknown History (3 mL) subcutaneous pen lorazepam 0.5 mg tablet 0.5 mg PO QHS 10/28/23 03/27/24 Unknown History memantine 10 mg tablet 10 mg PO BID 10/28/23 03/27/24 Unknown History metformin 500 mg tablet 500 mg PO DAILY 10/28/23 03/27/24 Unknown History primidone 50 mg tablet 50 mg PO BID 10/28/23 03/27/24 Unknown History ropinirole 0.5 mg tablet 0.5 mg PO QHS 10/28/23 03/27/24 Unknown History tamoxifen 20 mg tablet 20 mg PO DAILY 10/28/23 03/27/24 Unknown History tramadol 50 mg tablet 50 mg PO QID 10/28/23 03/27/24 Unknown History trazodone 50 mg tablet 50 mg PO QHS 10/28/23 03/27/24 Unknown History aluminum-mag hydroxide-simethicone 5 ml PO Q6H PRN Heartburn 01/11/24 03/27/24 Unknown History 400 mg-400 mg-40 mg/5 mL oral susp (Maalox Maximum Strength) calcium carbonate 400 mg PO Q8H PRN Heartburn 01/11/24 03/27/24 Unknown History cyanocobalamin (vitamin B-12) 250 250 mcg PO DAILY 01/11/24 03/27/24 Unknown History mcg tablet ipratropium 0.5 mg-albuterol 3 mg 3 ml inhalation Q6H PRN 01/11/24 03/27/24 Unknown History (2.5 mg base)/3 mL nebulization sob/wheezing soln magnesium hydroxide 2,400 mg/10 mL 30 ml PO Q6H PRN Constipation 01/11/24 03/27/24 Unknown History oral suspension (Milk Of Magnesia Concentrated) multivitamin with minerals 1 tablet PO DAILY 01/11/24 03/27/24 Unknown History (Multiple Vitamin-Minerals tablet) naloxone 4 mg/actuation nasal 1 spray intranasal Q2-3M PRN 01/11/24 03/27/24 Unknown History spray (Narcan) Opiate Reversal ondansetron 4 mg disintegrating 4 mg PO Q8H PRN Nausea And Vomiting 01/11/24 03/27/24 Unknown History tablet pantoprazole 40 mg tablet,delayed 40 mg PO QAM 01/11/24 03/27/24 Unknown History release polyethylene glycol 3350 17 17 g PO HS PRN Constipation 01/11/24 03/27/24 Unknown History gram/dose oral powder (Miralax) pyridoxine (vitamin B6) 25 mg 25 mg PO DAILY 01/11/24 03/27/24 Unknown History tablet sennosides 8.6 mg tablet (senna) 8.6 mg PO BID 01/11/24 03/27/24 Unknown History Novolog FlexPen U-100 Insulin 2 - 14 units BID 03/27/24 03/27/24 Unknown History nystatin 100,000 unit/gram topical 1 applic topical PRN PRN Antifungal 03/27/24 03/27/24 Unknown History powder Allergies Allergy/AdvReac Type Severity Reaction Status Date / Time amoxicillin (From Augmentin) Allergy Unknown Verified 03/22/24 13:01 clavulanic acid (From Allergy Unknown Verified 03/22/24 13:01 Augmentin) Review of Systems Review of Systems: ROS unobtainable: Yes unobtainable due to medical condition [facility] Past Medical History Medical History Anxiety and depression Breast cancer With history of radiation therapy and chemotherapy CHF (congestive heart failure) Cholelithiasis Chronic anticoagulation Chronic constipation Chronic hypoxic respiratory failure, on home oxygen therapy Cirrhosis Closed fracture of left proximal humerus Compression fracture of L1 vertebra COPD (chronic obstructive pulmonary disease) Dementia Mild Diabetes Dysphagia Essential tremor Iron deficiency anemia Portal hypertensive gastropathy Psychosis Patient has had a history of hallucinations/psychosis she is on Abilify. It is unclear for psychosis is due to dementia with psychosis verses depression with psychosis or history of possible underlying bipolar patient is not able to provide the details Restless leg syndrome T12 burst fracture Type 2 diabetes mellitus treated with insulin Surgical History Surgical History History of bilateral mastectomy History of colonoscopy with polypectomy Family History Family History Other Unknown family medical history Social History Social History Smoking packs per day: 1 Smoking cigarettes per day: 20.0 Years smoked: 50 Smoking pack-years: 50.00 Smoking status: Former smoker Second hand tobacco smoke exposure: No Alcohol intake: never Substance use: never Do You Feel Safe in your Home?: Yes Lack of Transportation: No Lack of Food: Never True Current Housing: I Have Housing Concerned About Future Housing: No Difficulty Paying Gas/Electric Bills: No Difficulty Paying for Meds: No Currently Unemployed: No Education: High School Diploma/GED Difficulty w/ Childcare or Family Care: No Spiritual care concerns: No Exam Narrative: GENERAL: Elderly, well-nourished, and in no acute distress. HEAD: Normocephalic, atraumatic. EYES: EOMI. ENT: Nares clear, no rhinorrhea or epistaxis. Mucous membranes dry. Oropharynx without tonsillar hypertrophy exudate or other lesions. B NECK: Supple. No adenopathy or masses. CHEST: No respiratory distress. Lung sounds are coarse with scattered wheezing. No rales or rhonchi HEART: Regular rate and rhythm. No murmur heard. Normal peripheral pulses. ABDOMEN: Soft, nontender, nondistended, normal active bowel sounds. EXTREMITIES: No edema. SKIN: Warm, dry, no rash. NEURO: No focal deficits. Alert and oriented x2. PSYCH: Normal mood and affect Course Course Emergency Course: patient with improvement after nebulizer treatment and Solu-Medrol Vital Signs Vital signs: Vital Signs Temperature 96.1 F L 04/09/24 22:42 Pulse Rate 67 04/09/24 22:42 Respiratory Rate 18 04/09/24 22:42 Blood Pressure 102/65 04/09/24 22:42 Pulse Oximetry 97 04/09/24 22:42 Oxygen Delivery Nasal Cannula 04/09/24 22:42 Oxygen Flow Rate 3 04/09/24 22:42 Temperature 96.1 F L 04/09/24 22:42 Pulse Rate 72 04/09/24 23:23 Respiratory Rate 13 04/09/24 23:23 Blood Pressure 102/65 04/09/24 22:42 Pulse Oximetry 97 04/09/24 22:42 Oxygen Delivery Nasal Cannula 04/09/24 22:42 Oxygen Flow Rate 3 04/09/24 22:42 MDM - SOB/Dyspnea MDM Narrative Medical decision making narrative: patient presents to the emergency department for shortness of breath. Ongoing over the last couple of days. She is afebrile and nontoxic appearing. Oxygen saturations remained stable on 3 L that she wears chronically. Cbc without leukocytosis. Metabolic panel appears stable. Influenza, RSV and COVID screens are negative. Urine without evidence of infection. Chest x-ray shows mild vascular congestion. BNP is not significantly elevated. patient with improvement after nebulizer treatment and Solu-Medrol. will be continued on oral prednisone. Discharged back to facility. Given warnings to return to the ER Differential Diagnosis Differential diagnosis: Likely acute exacerbation of chronic obstructive airways disease, congestive heart failure and community acquired pneumonia Lab Data Attestation: I reviewed the patient's lab results. 04/09/24 23:19 04/09/24 23:19 Labs: Lab Results 04/09/24 04/09/24 04/10/24 Range/Units 23:19 23:19 00:14 WBC 8.4 (4.5-10.0) K/mm3 RBC 4.14 L (4.2-5.4) M/mm3 Hgb 11.8 L (12.0-15.0) g/dL Hct 38.8 (37.0-47.0) % MCV 93.7 (80-100) fl MCH 28.5 (26-34) pg MCHC 30.4 L (32-36) g/dl RDW 16.0 H (11.5-14.5) % Plt Count 193 (150-375) k/mm3 MPV 10.4 (7.4-10.4) fl Immature Gran % (Auto) 0.6 H (0-0.5) % Neut % (Auto) 80.5 H (45.5-73.1) % Lymph % (Auto) 14.0 L (18.3-44.2) % [place] % (Auto) 4.6 (2.6-8.5) % Eos % (Auto) 0.2 (0-4.4) % Baso % (Auto) 0.1 L (0.2-1.2) % Lymph # (Auto) 1.18 (0.9-3.2) K/mm3 [place] # (Auto) 0.4 (0.1-0.6) K/mm3 Eos # (Auto) 0.0 (0-0.3) K/mm3 Baso # (Auto) 0.0 (0.0-0.1) K/mm3 Abs Immat Gran (auto) 0.05 H (0.00-0.031) K/mm3 Absolute Neuts (auto) 6.8 H (1.3-6.7) K/mm3 Absolute Nucleated RBC 0.000 (0.0-0.012) K/mm3 Nucleated RBC % 0.0 (0.0-0.2) % PT 14.4 (11.1-14.7) Seconds INR 1.1 APTT 29.0 (22.3-36.8) Seconds Sodium 138 (137-145) mmol/L Potassium 4.0 (3.4-5.0) mmol/L Chloride 99 (98-107) mmol/L Carbon Dioxide 37 H (22-30) mmol/L Anion Gap 2 L (4-12) mmol/L BUN 24 H (7-17) mg/dL Creatinine 0.60 L (0.7-1.0) mg/dL Estim Creat Clear Calc 86 ml/min Estimated GFR > 60 (59 - ) Glucose 170 H (65-110) mg/dL Calcium 8.7 (8.4-10.2) mg/dL Total Bilirubin 0.4 (0.2-1.3) mg/dL AST 65 H (14-36) U/L ALT 60 H (6-35) U/L Alkaline Phosphatase 88 (38-126) U/L Troponin I < 0.012 Cancelled (0.000-0.034) ng/mL NT-Pro-B Natriuret Pep 128 H (19.9-100) pg/mL Total Protein 7.0 (6.3-8.2) g/dL Albumin 3.7 (3.5-5.1) g/dL Urine Color Yellow (Yellow) Urine Appearance Clear (Clear) Urine pH 6.0 (5.0-9.0) Ur Specific [place] 1.032 (1.001-1.035) Urine Protein Negative (Negative) mg/dL Urine Glucose (UA) 3+ H (Negative) mg/dL Urine Ketones Trace H (Negative) mg/dL Ur Blood (Man) Negative (Negative) Urine Nitrate Negative (Negative) Urine Bilirubin Negative (Negative) Urine Urobilinogen 1.0 (<2.0) mg/dL Leukocyte Esterase Rfl Negative (Negative) JACE/UL Influenza A (RT-PCR) Negative (Negative) Influenza B (RT-PCR) Negative (Negative) RSV (RT-PCR) Negative (Negative) SARS-CoV-2 RNA (RT-PCR) Negative (Negative) Imaging Data Radiologist's impression: chest x-ray: mild vascular congestion ECG Data EKG #1: ECG completion date: 04/09/24 EKG Interpretation: normal rate, sinus rhythm, no ST changes, normal QT and other ( Baseline artifact) Critical Care Time Critical Care Time Critical Care Time: No Discharge Plan Discharge Clinical Impression: COPD exacerbation Patient Disposition: [facility]As[facility] Living Condition: Improved Instructions: COPD (Chronic Obstructive Pulmonary Disease) (ED) Additional Instructions: Return to the emergency department for worsening symptoms, or any other concerns Albuterol 2 puffs every 4-6 hours for shortness of breath or wheezing. Continue oral steroid as prescribed Follow up with primary care doctor Patient Language: Vietnamese Prescriptions: New prednisone 20 mg tablet 40 mg PO DAILY 4 Days Qty: 8 0RF No Action ipratropium-albuterol 0.5 mg-3 mg(2.5 mg base)/3 mL Solution For Nebulization 3 ml INHALATION Q6H PRN (Reason: sob/wheezing) cyanocobalamin (vitamin B-12) 250 mcg Tablet 250 mcg PO DAILY pantoprazole 40 mg Tablet,Delayed Release (Dr/Ec) 40 mg PO QAM calcium carbonate 200 mg calcium (500 mg) Tablet,Chewable 400 mg PO Q8H PRN (Reason: Heartburn) Multiple Vitamin-Minerals Tablet 1 tablet PO DAILY polyethylene glycol 3350 [Miralax] 17 gram/dose Powder 17 g PO HS PRN (Reason: Constipation) ondansetron 4 mg Tablet,Disintegrating 4 mg PO Q8H PRN (Reason: Nausea And Vomiting) alum-mag hydroxide-simeth [Maalox Maximum Strength] 400-400-40 mg/5 mL Suspension 5 ml PO Q6H PRN (Reason: Heartburn) magnesium hydroxide [Milk Of Magnesia Concentrated] 2,400 mg/10 mL Suspension 30 ml PO Q6H PRN (Reason: Constipation) naloxone [Narcan] 4 mg/actuation [place],Non-Aerosol 1 spray INTRANASAL Q2-3M PRN (Reason: Opiate Reversal) Rx Instructions: spray 1 dose into ONE nostril; alternate nostrils w each dose until help arrives sennosides [senna] 8.6 mg Tablet 8.6 mg PO BID pyridoxine (vitamin B6) 25 mg Tablet 25 mg PO DAILY amiodarone [Pacerone] 200 mg Tablet 200 mg PO BID Qty: 60 0RF Eliquis 5 mg Tablet 5 mg PO Q12HR Qty: 60 0RF losartan 25 mg tablet 12.5 mg PO DAILY Qty: 30 0RF metoprolol tartrate 25 mg tablet 12.5 mg PO BID Qty: 30 0RF furosemide 40 mg tablet 40 mg PO DAILY metformin 500 mg tablet 500 mg PO DAILY primidone 50 mg tablet 50 mg PO BID gabapentin 600 mg tablet 600 mg PO TID trazodone 50 mg tablet 50 mg PO QHS acetaminophen 650 mg Tablet 650 mg PO TID tramadol 50 mg tablet 50 mg PO QID lorazepam 0.5 mg tablet 0.5 mg PO QHS ferrous sulfate 325 mg (65 mg iron) Tablet 325 mg PO DAILY ropinirole 0.5 mg tablet 0.5 mg PO QHS buspirone 10 mg tablet 10 mg PO TID albuterol sulfate 90 mcg/actuation HFA aerosol inhaler 2 puff INHALATION Q4H PRN (Reason: Shortness Of Breath Or Wheezing) tamoxifen 20 mg tablet 20 mg PO DAILY cholecalciferol (vitamin D3) [Vitamin D3] 25 mcg (1,000 unit) Capsule 25 mcg PO DAILY Rx Instructions: 2 caps daily escitalopram oxalate 10 mg tablet 20 mg PO DAILY insulin aspart U-100 100 unit/mL (3 mL) insulin pen See Rx Instructions .ROUTE .COMPLEX Rx Instructions: Breakfast and Dinner SSI 141-180=2Units,181-220=4units,221-260=6units,261-300=8units,301-400=14units aripiprazole 5 mg tablet 5 mg PO DAILY Rx Instructions: takes with 2mg tab memantine 10 mg tablet 10 mg PO BID aripiprazole 2 mg tablet 2 mg PO DAILY Rx Instructions: takes with 5mg tab nystatin 100,000 unit/gram Powder 1 applic TOPICAL PRN PRN (Reason: Antifungal ) Novolog FlexPen U-100 Insulin 2 - 14 units BID Rx Instructions: <140 give 0. 141-180 give 2 units 181-220 give 4 units 221-260 give 6 units 261-300 give 8 units. 301-400 give 14 units. >400 call MD corey [Mucus Relief ER] 600 mg Tablet Extended Release 12hr 600 mg PO Q12HR Qty: 10 0RF metoprolol tartrate 25 mg tablet 6.25 mg PO BID Qty: 30 0RF prednisone 20 mg Tablet 50 mg PO DAILY@0800 Qty: 4 0RF Follow-up/Referrals: PHYSICIAN,[employer]HICLE [employer]ACER [Primary Care Provider] - Stand Alone Forms: Custodial Discharge
[2024-04-09] MEDS: methylPREDNISolone SOD SUCC 125 MG VIAL IV PUSH (23:20)
[2024-04-09] MEDS: IPRATROPIUM 0.5 MG/ALBUTEROL SULFATE 2.5 MG AMPUL.NEB 3 ML INHALATION (23:22)
[2024-04-09 23:23] VITALS: PULSE 72; RESP 13
[2024-04-09 23:26] LABS: Basophils Percent Auto 0.1 % (0.2-1.2); Eosinophils Percent Auto 0.2 % (0-4.4); Hematocrit 38.8 % (37.0-47.0); Hemoglobin 11.8 g/dL (12.0-15.0); Immature Granulocyte Absolute 0.05 K/mm3 (0.00-0.031); Immature Granulocyte Percent A 0.6 % (0-0.5); Lymphocytes Absolute Auto 1.18 K/mm3 (0.9-3.2); Mean Corpuscular HGB Conc 30.4 g/dl (32-36); Mean Corpuscular Hemoglobin 28.5 pg (26-34); Mean Corpuscular Volume 93.7 fl (80-100); Mean Platelet Volume 10.4 fl (7.4-10.4); Monocytes Absolute Auto 0.4 K/mm3 (0.1-0.6); Monocytes Percent Auto 4.6 % (2.6-8.5); Neutrophils Absolute Auto 6.8 K/mm3 (1.3-6.7); Neutrophils Percent Auto 80.5 % (45.5-73.1); Platelet Count Result 193 k/mm3 (150-375); Red Blood Count 4.14 M/mm3 (4.2-5.4); White Blood Count 8.4 K/mm3 (4.5-10.0)
[2024-04-09 23:37] LABS: Alanine Aminotransferase 60 U/L (6-35); Albumin Level 3.7 g/dL (3.5-5.1); Alkaline Phosphatase 88 U/L (38-126); Anion Gap 2 mmol/L (4-12); Aspartate Amino Transferase 65 U/L (14-36); Bilirubin,Total 0.4 mg/dL (0.2-1.3); Blood Urea Nitrogen 24 mg/dL (7-17); Calcium 8.7 mg/dL (8.4-10.2); Carbon Dioxide 37 mmol/L (22-30); Chloride 99 mmol/L (98-107); Estimated CRCL calculation 86 ml/min; Estimated Glomerular Filt Rate > 60; Glucose 170 mg/dL (65-110); Sodium 138 mmol/L (137-145)
[2024-04-09 23:41] LABS: INR 1.1; Prothrombin Time 14.4 Seconds (11.1-14.7)
[2024-04-09 23:49] LABS: NT Pro B Type Natriuretic Pept 128 pg/mL (19.9-100); Troponin I < 0.012 ng/mL (0.000-0.034)
[2024-04-10 00:03] LABS: Influenza A QL RT-PCR Negative (Negative); Influenza B QL RT-PCR Negative (Negative); RSV RNA, RT-PCR Negative (Negative); SARS-CoV-2 RNA PCR Negative (Negative)
[2024-04-10 00:25] LABS: Add Urine Microscopic? NO; Appearance Urine Clear (Clear); Bilirubin Urine Negative (Negative); Blood Urine Negative (Negative); Color Urine Yellow (Yellow); Glucose Urine UA 3+ mg/dL (Negative); Ketones Urine Trace mg/dL (Negative); Leukocyte Esterase Ur Negative LEU/UL (Negative); Nitrate Urine Negative (Negative); Protein Urine Negative (Negative); Specific Grav Ur 1.032 (1.001-1.035)
[2024-04-10 02:35] VITALS: TEMP 36.7
[2024-04-10 07:30] VITALS: BP 126/74; PULSE 60; RESP 16; O2SAT 98
[2024-04-10 08:30] VITALS: BP 116/67; PULSE 70; RESP 16; O2SAT 98
[2024-04-10 09:30] VITALS: BP 107/66; PULSE 62; RESP 16; O2SAT 98
[2024-04-10 10:30] VITALS: BP 109/72; PULSE 62; RESP 14; O2SAT 97
[2024-04-10 11:50] VITALS: BP 117/74; PULSE 62; RESP 16; O2SAT 97
== END 2024-04-10 11:50 ==
PROVIDERS: Emergency Provider Physician Assistant
DX: J44.1 Chronic obstructive pulmonary disease with (acute) exacerbation (principal); Z20.822 Contact with and (suspected) exposure to COVID-19; I50.9 Heart failure, unspecified; E11.9 Type 2 diabetes mellitus without complications; J96.11 Chronic respiratory failure with hypoxia; Z99.81 Dependence on supplemental oxygen; F03.A0 Unspecified dementia, mild, without behavioral disturbance, psychotic disturbance, mood disturbance, and anxiety; D50.9 Iron deficiency anemia, unspecified; G25.81 Restless legs syndrome; Z86.0100 Personal history of colon polyps, unspecified; Z90.13 Acquired absence of bilateral breasts and nipples; Z87.891 Personal history of nicotine dependence; Z79.01 Long term (current) use of anticoagulants; Z79.899 Other long term (current) drug therapy; Z79.4 Long term (current) use of insulin
CPT/HCPCS: 36415; 71045; 80053; 81003; 83880; 84484; 85025; 85610; 85730; 87637; 93005; 94640; 96374; 99284; J2919

== ENCOUNTER 2024-06-13 23:49 | Inpatient (IN) | payer MEDICARE, MEDICAID, SELFPAY ==
--- NOTE | ~2024-06-13 | CT_ITS ---
EXAMINATION:CT diagnostic chest w con DATE: 06/14/2024 14:37 INDICATION: Dyspnea. TECHNIQUE: Computed tomography (CT) of the chest was performed with 75 mL Omnipaque 350 intravenous c ontrast. Automated exposure control and iterative reconstruction technique were employed. The dose-le ngth product (DLP) was 655.60 mGy-cm. COMPARISON: Chest CT 02/09/2024, CT abdomen and pelvis 10/28/2023 FINDINGS: There is mild scarring at right lung apex. There is severe emphysema. There is mild atelect asis bilaterally. A calcified right lung nodule and calcified right hilar and mediastinal lymph nodes are consistent with old granulomatous disease. There are trace pleural effusions. The heart size is normal. There are coronary artery calcifications. There are calcifications of the aortic valve. There is a small pericardial effusion. The liver demonstrates surface nodularity, consistent with cirrhosi s. Calcifications in the spleen are consistent with old granulomatous disease. There is a 5.1 x 2.5 c m mass of the right adrenal gland containing fat, consistent with a myelolipoma. There is a left inte rnal jugular port with tip in superior vena cava. There are old healed rib fractures bilaterally. The re are chronic burst fractures of T2, T12, and L1. There is mild thoracic spondylosis. IMPRESSION: 1. Severe emphysema. 2. Cirrhosis of the liver. 3. Chronic small pericardial effusion. Reviewed, dictated and finalized at location A. N NURSE
--- NOTE | ~2024-06-13 | XR_ITS ---
Clinical Indication: Shortness of breath PA and lateral views of the chest: Comparison: 04/09/2024 Findings: Left-sided Mediport in place. Small right pleural effusion present. Probable mild right bas ilar atelectasis versus possibly pneumonia.. Cardiomediastinal silhouette is stable. Bones and soft tissues are unremarkable. Impression: Small right pleural effusion with probable right basilar atelectasis versus pneumonia. Correlate clin ically. Left-sided Mediport. Reviewed, dictated and finalized at location . HEAD DOOR TECHNICIAN Impression: Small right pleural effusion with probable right basilar atelectasis versus pne umonia. Correlate clinically. Left-sided Mediport.
--- NOTE | 2024-06-13 23:24 | ECG_ITS ---
Test Date: 2024-06-14 00:02:59 Measurements Intervals [place] Rate: 51 P: 0 WI: 0 QRS: -11 QRSD: 98 T: 45 QT: 526 QTc: 486 Interpretive Statements SINUS OR ECTOPIC ATRIAL BRADYCARDIA DELAYED PRECORDIAL R/S TRANSITION BORDERLINE ST-T WAVE ABNORMALITY- INF/LAT LEADS BASELINE ARTIFACT- I, II, III, AVR, AVL, AVF, V1-V6 BORDERLINE ECG Compared to ECG 04/09/2024 22:50:49 HEART RATE HAS DECREASED Electronically Signed On 06-14-2024 08:46:41 TONG SETTER by Rm Bishop D.O.
[2024-06-13 23:26] VITALS: BP 104/53; PULSE 53; RESP 22; TEMP 36.6; O2SAT 94
[2024-06-13 23:49] VITALS: O2SAT 94
[2024-06-13 23:50] VITALS: PULSE 59
[2024-06-13 23:51] VITALS: BP 98/87; PULSE 59; RESP 20; TEMP 36.8; O2SAT 94
[2024-06-13 23:52] VITALS: O2SAT 94
[2024-06-14] VITALS (25 sets, daily range): BP systolic 102–145; BP diastolic 52–103; PULSE 48–83; RESP 12–20; TEMP 36.6–37.1; O2SAT 92–100; BMI 36.3
--- NOTE | 2024-06-14 | ECHO_ITS ---
Patient Info Name: Marleni Mcgrath Age: 73 years : 1950 Gender: Female Ht: 67 in Wt: 231 lbs BSA: 2.27 m2 HR: 76 bpm BP: 128 / 68 mmHg Technical Quality: Poor Exam Date: 06/14/2024 12:51 PM Exam Location: Echo Lab Patient Status: Inpatient Admit Date: 06/14/2024 Staff Ordering Physician: Whitney Cote Client Support Representative: Gutierrez Gillespie RDCS Attending Provider: Whitney Cote Referring Physician: Kera LEDESMA; Exam Type: CA echo dop bubble study w con Study Info Indications - Exacerbation - Heart failure - Dyspnea Complete two-dimentional, color flow and Doppler transthoracic echocardiogram is performed with agitated saline and with contrast to opacify the left ventricle and to improve the delineation of the left ventricle endocardial borders. Contrast/Agitated Saline Contrast/Ag. Saline: Agitated Saline Amount: 20.00 ml Existing IV Access: Yes Contrast/Ag. Saline: Definity Amount: 2.00 ml Existing IV Access: Yes Reason for Poor Study: patient body habitus Summary 1. Definity contrast administered improved wall motion interpretation. 2. Left ventricular chamber dimension is normal. 3. Left ventricular systolic function is normal, estimated at 65-70%. 4. There is moderate concentric increased left ventricular wall thickness. 5. The left ventricular diastolic function is abnormal. 6. E/e' 12 is mildly elevated. 7. The aortic valve is not well visualized. Cannot determine number of aortic valve leaflets. 8. There is moderate aortic valve sclerosis. 9. There is moderate aortic valve stenosis with a peak velocity of 302 cm/s, mean gradient of 17 mmHg, and aortic valve area of 1.2 cm2. 10. Moderate pulmonary hypertension, estimated pulmonary arterial systolic pressure is 50 mmHg. Left Ventricle E/e' 12 is mildly elevated. Definity contrast administered improved wall motion interpretation. Left ventricular chamber dimension is normal. Left ventricular systolic function is normal, estimated at 65-70%. There is moderate concentric increased left ventricular wall thickness. The left ventricular diastolic function is abnormal. Right Ventricle Right ventricular chamber dimension is normal. Right ventricular systolic function is normal. Left Atria Left atrial chamber dimension is normal. Right Atria Right atrial chamber dimension is normal. Atrial Septum Agitated saline injection with and without valsalva maneuver opacified right side cardiac chambers without shunt to left side cardiac chambers. Intact interatrial septum visualized by 2D and agitated saline imaging. Aortic Valve The aortic valve is not well visualized. Cannot determine number of aortic valve leaflets. There is moderate aortic valve sclerosis. There is moderate aortic valve stenosis with a peak velocity of 302 cm/s, mean gradient of 17 mmHg, and aortic valve area of 1.2 cm2. There is no aortic valve regurgitation. Pulmonic Valve There is no pulmonic regurgitation. Mitral Valve There is no mitral valve stenosis. There is no mitral valve regurgitation. Tricuspid Valve There is no tricuspid valve regurgitation. Moderate pulmonary hypertension, estimated pulmonary arterial systolic pressure is 50 mmHg. Pericardium/Pleural There is no pericardial effusion. Inferior Vena Cava Normal inferior vena cava with >50% collapse upon inspiration consistent with normal right atrial pressure, 5 mmHg. Aorta The aortic root size at the sinus of Valsalva is normal. Left Ventricular Outflow Tract Name Value Normal LVOT 2D LVOT Diameter 1.7 cm LVOT Doppler LVOT Peak Velocity 159 cm/s LVOT Peak Gradient 8 mmHg LVOT Mean Gradient 6 mmHg LVOT VTI 37 cm LVOT VTI/AV VTI Ratio 0.5 LVOT Stroke Volume 82 ml LVOT CO 14.5 l/min LVOT CI 6.4 l/min/m2 Pulmonic Valve Name Value Normal RVOT Doppler RVOT Peak Gradient 7 mmHg PV Doppler PV Peak Velocity 148 cm/s PV Peak Gradient 9 mmHg Mitral Valve Name Value Normal MV Doppler MV Decel [place] 396 cm/s2 MV PHT 61 ms MV Area (PHT) 3.6 cm2 4.0-5.0 MV Diastolic Function MV E Peak Velocity 83 cm/s MV A Peak Velocity 68 cm/s MV E/A 1.2 MV Decel Time 210 ms MV Annular TDI MV Septal e' Velocity 6.2 cm/s >=8.0 MV E/e' (Septal) 13.3 <=8.0 MV Lateral e' Velocity 7.1 cm/s >=10.0 MV E/e' (Lateral) 11.7 <=8.0 MV e' Average 6.67 MV E/e' (Average) 12.5 Tricuspid Valve Name Value Normal TV Regurgitation Doppler TR Peak Velocity 336 cm/s TR Peak Gradient 45 mmHg Estimated PAP/RSVP RA Pressure 5 mmHg <=5 PA Systolic Pressure 50 mmHg <36 RV Systolic Pressure 50 mmHg <36 TV Annular TDI TV Lateral Ledy s' Velocity 16.5 cm/s 9.5-18.7 Aorta Name Value Normal Ascending Aorta Ao [place] Diameter 2.8 cm 2.3-2.9 Aortic Valve Name Value Normal AV Doppler AV Peak Velocity 302 cm/s AV Peak Gradient 33 mmHg AV Mean Gradient 17 mmHg AV VTI 69 cm AV Area (Cont Eq VTI) 1.2 cm2 >=3.0 AV Area (Cont Eq Gilles) 1.2 cm2 AV V1/V2 Ratio 0.53 AV Regurgitation 2D LVOT Area 2.2 cm2 Ventricles Name Value Normal LV Dimensions 2D/MM IVS Diastolic Thickness (2D) 1.5 cm 0.6-1.0 LVID Diastole (2D) 3.8 cm 3.8-5.2 LVIW Diastolic Thickness (2D) 1.3 cm 0.6-0.9 LVID Systole (2D) 2.3 cm 2.2-3.5 LVOT Diameter 1.7 cm LV Mass (2D Cubed) 199.01 g 67.00-162.00 LV Mass Index (2D Cubed) 88 g/m2 43-95 Relative Wall Thickness (2D) 0.70 LV Fractional Shortening/Ejection Fraction 2D/MM LV Fractional Shortening (2D) 39 % 27-45 LV EF (2D Teicholz) 71 % 54-74 LV Diastolic Volume (4C MOD) 94 ml LV EF (4C MOD) 69 % LV Diastolic Volume (2C MOD) 58 ml LV EF (2C MOD) 78 % LV Diastolic Volume (BP MOD) 75 ml 46-106 LV Diastolic Volume Index (BP MOD) 33 ml/m2 29-61 LV Systolic Volume (BP MOD) 20 ml 14-42 LV Systolic Volume Index (BP MOD) 9 ml/m2 8-24 LV EF (BP MOD) 73 % 54-74 LV Diastolic Length (4C) 7.4 cm LV Systolic Length (4C) 6.5 cm LV Stroke Volume (4C MOD) 65 ml Report Signatures
[2024-06-14 00:11] LABS: Basophils Absolute Auto 0.1 K/mm3 (0.0-0.1); Basophils Percent Auto 0.8 % (0.2-1.2); Eosinophils Absolute Auto 0.1 K/mm3 (0-0.3); Eosinophils Percent Auto 1.1 % (0-4.4); Hematocrit 38.3 % (37.0-47.0); Hemoglobin 11.8 g/dL (12.0-15.0); Immature Granulocyte Absolute 0.03 K/mm3 (0.00-0.031); Immature Granulocyte Percent A 0.3 % (0-0.5); Lymphocytes Absolute Auto 2.56 K/mm3 (0.9-3.2); Lymphocytes Percent Auto 25.9 % (18.3-44.2); Mean Corpuscular HGB Conc 30.8 g/dl (32-36); Mean Corpuscular Hemoglobin 28.1 pg (26-34); Mean Corpuscular Volume 91.2 fl (80-100); Monocytes Absolute Auto 0.8 K/mm3 (0.1-0.6); Monocytes Percent Auto 7.7 % (2.6-8.5); Neutrophils Absolute Auto 6.4 K/mm3 (1.3-6.7); Neutrophils Percent Auto 64.2 % (45.5-73.1); Platelet Count Result 285 k/mm3 (150-375); Red Cell Distribution Width 16.4 % (11.5-14.5); White Blood Count 9.9 K/mm3 (4.5-10.0)
[2024-06-14 00:46] LABS: Influenza A QL RT-PCR Negative (Negative); Influenza B QL RT-PCR Negative (Negative); RSV RNA, RT-PCR Negative (Negative); SARS-CoV-2 RNA PCR Negative (Negative)
--- NOTE | 2024-06-14 00:57 | ED.SOB ---
HPI - SOB/Dyspnea General Chief Complaint: Shortness of Breath/Dyspnea Stated Complaint: sob Time Seen by Provider: 06/14/24 00:37 History of Present Illness HPI Narrative: 73-year-old female with a past medical history including COPD and congestive heart failure on 3 L home oxygen 247. Shows a history of chronic debility on anticoagulation chronically with Eliquis. History of restless leg syndrome and psychiatric illness on Abilify. Has an essential tremor. Patient presents to the emergency department today via EMS for concerns of difficulty in breathing and shortness of breath, wheezing and intermittent chest pain. She states she is not having a chest pain presently but states that she has wheezing and having some trouble breathing not responsive to her home nebulizers or oxygen. Endorses a productive cough, no fever or chills. No nausea vomiting or abdominal pain. No present chest tightness or chest discomfort. Does have sick contacts over the nursing facility. Has had similar presentations in the past and had COPD exacerbations on and off. Previous visit in late March for similar. Related Data Home Medications ?Medication ?Instructions ?Recorded ?Confirmed ?Last Taken ?Type acetaminophen 650 mg tablet 650 mg PO TID 10/28/23 03/27/24 Unknown History albuterol sulfate 90 mcg/actuation 2 puff inhalation Q4H PRN 10/28/23 03/27/24 Unknown History aerosol inhaler Shortness Of Breath Or Wheezing aripiprazole 2 mg tablet 2 mg PO DAILY 10/28/23 03/27/24 Unknown History aripiprazole 5 mg tablet 5 mg PO DAILY 10/28/23 03/27/24 Unknown History buspirone 10 mg tablet 10 mg PO TID 10/28/23 03/27/24 Unknown History cholecalciferol (vitamin D3) 25 25 mcg PO DAILY 10/28/23 03/27/24 Unknown History mcg (1,000 unit) capsule (Vitamin D3) escitalopram oxalate 10 mg tablet 20 mg PO DAILY 10/28/23 03/27/24 Unknown History ferrous sulfate 325 mg (65 mg 325 mg PO DAILY 10/28/23 03/27/24 Unknown History iron) tablet furosemide 40 mg tablet 40 mg PO DAILY 10/28/23 03/27/24 Unknown History gabapentin 600 mg tablet 600 mg PO TID 10/28/23 03/27/24 Unknown History insulin aspart U-100 100 unit/mL See Rx Instructions .Route .COMPLEX 10/28/23 03/27/24 Unknown History (3 mL) subcutaneous pen lorazepam 0.5 mg tablet 0.5 mg PO QHS 10/28/23 03/27/24 Unknown History memantine 10 mg tablet 10 mg PO BID 10/28/23 03/27/24 Unknown History metformin 500 mg tablet 500 mg PO DAILY 10/28/23 03/27/24 Unknown History primidone 50 mg tablet 50 mg PO BID 10/28/23 03/27/24 Unknown History ropinirole 0.5 mg tablet 0.5 mg PO QHS 10/28/23 03/27/24 Unknown History tamoxifen 20 mg tablet 20 mg PO DAILY 10/28/23 03/27/24 Unknown History tramadol 50 mg tablet 50 mg PO QID 10/28/23 03/27/24 Unknown History trazodone 50 mg tablet 50 mg PO QHS 10/28/23 03/27/24 Unknown History aluminum-mag hydroxide-simethicone 5 ml PO Q6H PRN Heartburn 01/11/24 03/27/24 Unknown History 400 mg-400 mg-40 mg/5 mL oral susp (Maalox Maximum Strength) calcium carbonate 400 mg PO Q8H PRN Heartburn 01/11/24 03/27/24 Unknown History cyanocobalamin (vitamin B-12) 250 250 mcg PO DAILY 01/11/24 03/27/24 Unknown History mcg tablet ipratropium 0.5 mg-albuterol 3 mg 3 ml inhalation Q6H PRN 01/11/24 03/27/24 Unknown History (2.5 mg base)/3 mL nebulization sob/wheezing soln magnesium hydroxide 2,400 mg/10 mL 30 ml PO Q6H PRN Constipation 01/11/24 03/27/24 Unknown History oral suspension (Milk Of Magnesia Concentrated) multivitamin with minerals 1 tablet PO DAILY 01/11/24 03/27/24 Unknown History (Multiple Vitamin-Minerals tablet) naloxone 4 mg/actuation nasal 1 spray intranasal Q2-3M PRN 01/11/24 03/27/24 Unknown History spray (Narcan) Opiate Reversal ondansetron 4 mg disintegrating 4 mg PO Q8H PRN Nausea And Vomiting 01/11/24 03/27/24 Unknown History tablet pantoprazole 40 mg tablet,delayed 40 mg PO QAM 01/11/24 03/27/24 Unknown History release polyethylene glycol 3350 17 17 g PO HS PRN Constipation 01/11/24 03/27/24 Unknown History gram/dose oral powder (Miralax) pyridoxine (vitamin B6) 25 mg 25 mg PO DAILY 01/11/24 03/27/24 Unknown History tablet sennosides 8.6 mg tablet (senna) 8.6 mg PO BID 01/11/24 03/27/24 Unknown History Novolog FlexPen U-100 Insulin 2 - 14 units BID 03/27/24 03/27/24 Unknown History nystatin 100,000 unit/gram topical 1 applic topical PRN PRN Antifungal 03/27/24 03/27/24 Unknown History powder Allergies Allergy/AdvReac Type Severity Reaction Status Date / Time amoxicillin (From Augmentin) Allergy Unknown Verified 06/13/24 23:32 clavulanic acid (From Allergy Unknown Verified 06/13/24 23:32 Augmentin) Review of Systems Review of Systems: As reviewed above in [facility] Past Medical History Medical History Psychosis Patient has had a history of hallucinations/psychosis she is on Abilify. It is unclear for psychosis is due to dementia with psychosis verses depression with psychosis or history of possible underlying bipolar patient is not able to provide the details Restless leg syndrome Dementia Mild T12 burst fracture Compression fracture of L1 vertebra Cholelithiasis Anxiety and depression Breast cancer With history of radiation therapy and chemotherapy Dysphagia Iron deficiency anemia Type 2 diabetes mellitus treated with insulin Essential tremor Chronic hypoxic respiratory failure, on home oxygen therapy CHF (congestive heart failure) Chronic constipation Portal hypertensive gastropathy Cirrhosis Chronic anticoagulation COPD (chronic obstructive pulmonary disease) Diabetes Closed fracture of left proximal humerus Surgical History Surgical History History of bilateral mastectomy History of colonoscopy with polypectomy Family History Family History Other Unknown family medical history Social History Social History Smoking packs per day: 1 Smoking cigarettes per day: 20.0 Years smoked: 50 Smoking pack-years: 50.00 Smoking status: Former smoker Second hand tobacco smoke exposure: No Alcohol intake: never Substance use: never Do You Feel Safe in your Home?: Yes Lack of Transportation: No Lack of Food: Never True Current Housing: I Have Housing Concerned About Future Housing: No Difficulty Paying Gas/Electric Bills: No Difficulty Paying for Meds: No Currently Unemployed: No Education: High School Diploma/GED Difficulty w/ Childcare or Family Care: No Spiritual care concerns: No Exam Narrative: GENERAL: Chronically ill-appearing, but not any acute distress, answering all questions appropriately HEAD: [Normocephalic, atraumatic.] EYES: [PERRLA and EOMI.] ENT: Nares clear, no rhinorrhea or epistaxis. Mucous membranes dry. NECK: Supple. CHEST: Coarse bibasilar breath sounds, right-sided coarse breath sounds in the apex and base with some wheezing. No tachypnea, no accessory muscle use. HEART: Regular rhythm, bradycardic rate. No murmur heard. [Normal peripheral pulses.] ABDOMEN: [Soft, nondistended], [nontender], [No rigidity or guarding] EXTREMITIES: Normal range of motion. [No edema.] SKIN: Warm, dry, no rash. NEURO: [No focal deficits]. Alert and oriented [x3.] PSYCH: [Normal mood and affect.] Course Vital Signs Vital signs: Vital Signs Temperature 36.6 C 06/13/24 23:26 Pulse Rate 53 L 06/13/24 23:26 Respiratory Rate 22 H 06/13/24 23:26 Blood Pressure 104/53 L 06/13/24 23:26 Pulse Oximetry 94 06/13/24 23:26 Oxygen Delivery Nasal Cannula 06/13/24 23:26 Oxygen Flow Rate 3 06/13/24 23:26 Temperature 36.6 C 06/14/24 01:36 Pulse Rate 52 L 06/14/24 01:36 Respiratory Rate 18 06/14/24 01:36 Blood Pressure 115/70 06/14/24 01:36 Pulse Oximetry 94 06/14/24 01:55 Oxygen Delivery Nasal Cannula 06/14/24 01:55 Oxygen Flow Rate 3 06/14/24 01:55 MDM - SOB/Dyspnea MDM Narrative Medical decision making narrative: 73-year-old female presenting from half-way facility for concerns of difficulty in breathing and shortness of breath. His a history of COPD and CHF on home oxygen 3 L 247. She also has a history of chronic anticoagulation given that she is bed-bound and debilitated. Mild dementia, essential tremor and some psychosis that she takes Abilify 4. Presents today with worsening shortness of breath and some chest pain that is no longer present. Endorses a productive cough that exacerbates the chest pain, several days of symptoms despite home oxygen nebulizers. She is saturating well on her home 3 L, no tachycardia, hypoxia, fever, tachypnea. Blood pressure on the softer side however cough is positional and repeat blood pressures are reassuring with position changes. Most recent blood pressure 135/52. She does some asymmetric breath sounds with wheezing in the right side is some coarse breath sounds which could be positional or related to intrathoracic process such as a pneumonia or pulmonary edema. Suspicion presently for viral syndrome versus COVID, flu, pneumonia. Low suspicion ACS although she does have elevated risk factors. She is chronically anticoagulated suspicion for thromboembolic event is lower. Will treat with nebulization DuoNebs and give her a fluid bolus given her clinical signs of dehydration with some soft blood pressure readings and dry tongue. Will obtain CBC, CMP, troponin, EKG, chest x-ray, BNP. She was frequently evaluated and placed on environmental monitoring technician and pulse oximetry. Workup shows no leukocytosis, hemoglobin 11.8 which is at her baseline. Normal platelet count. Normal coagulation panel. Normal renal function, normal electrolytes, slightly hyperglycemic but acceptable. LFTs at her baseline. Negative troponin. BNP mildly elevated but not severe. Negative COVID, flu, RSV. Chest x-ray was independently reviewed for suspicion of bacterial pneumonia versus infiltrates. Patient's chest x-ray does have some asymmetry with concern for right lower lobe opacity suspicious for pneumonia. There could also be some mild pulmonary edema and mild bilateral pleural effusions although her symptoms are more consistent with bacterial pneumonia. She has emphysematous lungs and stable enlargement of the cardiac silhouette per radiologist interpretation. Patient will be started on community-acquired pneumonia coverage including Rocephin and doxycycline. Patient was re-evaluated after nebulizers and treatments and did not have significant improvement. She actually started to become slightly more hypoxic at 85 on 3 L which could be secondary to bronchodilation from the steroids and nebulizers. She was improved after 4 L and started with antibiotics. Spoke to the hospitalist who accepted the patient to a telemetry monitored bed for admission at this time. Patient is comfortable with admission. Admit orders placed. Differential Diagnosis Differential diagnosis: Likely acute exacerbation of chronic obstructive airways disease, congestive heart failure, community acquired pneumonia, asthma with exacerbation and other Medical Records Attestation: I reviewed the patient's medical records. Lab Data Attestation: I reviewed the patient's lab results. 06/14/24 00:03 06/14/24 00:41 Labs: Lab Results 06/14/24 06/14/24 06/14/24 Range/Units 00:03 00:41 00:41 WBC 9.9 (4.5-10.0) K/mm3 RBC 4.20 (4.2-5.4) M/mm3 Hgb 11.8 L (12.0-15.0) g/dL Hct 38.3 (37.0-47.0) % MCV 91.2 (80-100) fl MCH 28.1 (26-34) pg MCHC 30.8 L (32-36) g/dl RDW 16.4 H (11.5-14.5) % Plt Count 285 (150-375) k/mm3 MPV 11.0 H (7.4-10.4) fl Immature Gran % (Auto) 0.3 (0-0.5) % Neut % (Auto) 64.2 (45.5-73.1) % Lymph % (Auto) 25.9 (18.3-44.2) % Love % (Auto) 7.7 (2.6-8.5) % Eos % (Auto) 1.1 (0-4.4) % Baso % (Auto) 0.8 (0.2-1.2) % Lymph # (Auto) 2.56 (0.9-3.2) K/mm3 Love # (Auto) 0.8 H (0.1-0.6) K/mm3 Eos # (Auto) 0.1 (0-0.3) K/mm3 Baso # (Auto) 0.1 (0.0-0.1) K/mm3 Abs Immat Gran (auto) 0.03 (0.00-0.031) K/mm3 Absolute Neuts (auto) 6.4 (1.3-6.7) K/mm3 Absolute Nucleated RBC 0.000 (0.0-0.012) K/mm3 Nucleated RBC % 0.0 (0.0-0.2) % Sodium 139 (137-145) mmol/L Potassium 3.8 (3.4-5.0) mmol/L Chloride 101 (98-107) mmol/L Carbon Dioxide 27 (22-30) mmol/L Anion Gap 11 (4-12) mmol/L BUN 17 (7-17) mg/dL Creatinine 0.60 L (0.7-1.0) mg/dL Estim Creat Clear Calc 77 ml/min Estimated GFR > 60 (59 - ) Glucose 157 H (65-110) mg/dL Calcium 8.6 (8.4-10.2) mg/dL Total Bilirubin 0.4 (0.2-1.3) mg/dL AST 71 H (14-36) U/L ALT 44 H (6-35) U/L Alkaline Phosphatase 109 (38-126) U/L Troponin I < 0.012 (0.000-0.034) ng/mL NT-Pro-B Natriuret Pep 523 H Cancelled (19.9-100) pg/mL Total Protein 7.0 (6.3-8.2) g/dL Albumin 3.6 (3.5-5.1) g/dL Influenza A (RT-PCR) Negative (Negative) Influenza B (RT-PCR) Negative (Negative) RSV (RT-PCR) Negative (Negative) SARS-CoV-2 RNA (RT-PCR) Negative (Negative) Imaging Data Attestation: I personally reviewed and interpreted this imaging study as follows: My impression: Right-sided pneumonia. Bilateral pleural effusions small Critical Care Time Critical Care Time Critical Care Time: Yes Total Critical Care Time: 35 Discharge Plan Discharge Clinical Impression: Acute and chronic respiratory failure with hypoxia, CHF (congestive heart failure), Community acquired pneumonia COPD (chronic obstructive pulmonary disease) Qualifiers: COPD type: COPD with acute lower respiratory infection Qualified Code(s): J44.0 - Chronic obstructive pulmonary disease with (acute) lower respiratory infection Patient Disposition: Still a Patient Condition: Stable Patient Language: Nigerian Prescriptions: No Action ipratropium-albuterol 0.5 mg-3 mg(2.5 mg base)/3 mL Solution For Nebulization 3 ml INHALATION Q6H PRN (Reason: sob/wheezing) cyanocobalamin (vitamin B-12) 250 mcg Tablet 250 mcg PO DAILY pantoprazole 40 mg Tablet,Delayed Release (Dr/Ec) 40 mg PO QAM calcium carbonate 200 mg calcium (500 mg) Tablet,Chewable 400 mg PO Q8H PRN (Reason: Heartburn) Multiple Vitamin-Minerals Tablet 1 tablet PO DAILY polyethylene glycol 3350 [Miralax] 17 gram/dose Powder 17 g PO HS PRN (Reason: Constipation) ondansetron 4 mg Tablet,Disintegrating 4 mg PO Q8H PRN (Reason: Nausea And Vomiting) alum-mag hydroxide-simeth [Maalox Maximum Strength] 400-400-40 mg/5 mL Suspension 5 ml PO Q6H PRN (Reason: Heartburn) magnesium hydroxide [Milk Of Magnesia Concentrated] 2,400 mg/10 mL Suspension 30 ml PO Q6H PRN (Reason: Constipation) naloxone [Narcan] 4 mg/actuation [place],Non-Aerosol 1 spray INTRANASAL Q2-3M PRN (Reason: Opiate Reversal) Rx Instructions: spray 1 dose into ONE nostril; alternate nostrils w each dose until help arrives sennosides [senna] 8.6 mg Tablet 8.6 mg PO BID pyridoxine (vitamin B6) 25 mg Tablet 25 mg PO DAILY amiodarone [Pacerone] 200 mg Tablet 200 mg PO BID Qty: 60 0RF Eliquis 5 mg Tablet 5 mg PO Q12HR Qty: 60 0RF losartan 25 mg tablet 12.5 mg PO DAILY Qty: 30 0RF metoprolol tartrate 25 mg tablet 12.5 mg PO BID Qty: 30 0RF prednisone 20 mg tablet 40 mg PO DAILY 4 Days Qty: 8 0RF furosemide 40 mg tablet 40 mg PO DAILY metformin 500 mg tablet 500 mg PO DAILY primidone 50 mg tablet 50 mg PO BID gabapentin 600 mg tablet 600 mg PO TID trazodone 50 mg tablet 50 mg PO QHS acetaminophen 650 mg Tablet 650 mg PO TID tramadol 50 mg tablet 50 mg PO QID lorazepam 0.5 mg tablet 0.5 mg PO QHS ferrous sulfate 325 mg (65 mg iron) Tablet 325 mg PO DAILY ropinirole 0.5 mg tablet 0.5 mg PO QHS buspirone 10 mg tablet 10 mg PO TID albuterol sulfate 90 mcg/actuation HFA aerosol inhaler 2 puff INHALATION Q4H PRN (Reason: Shortness Of Breath Or Wheezing) tamoxifen 20 mg tablet 20 mg PO DAILY cholecalciferol (vitamin D3) [Vitamin D3] 25 mcg (1,000 unit) Capsule 25 mcg PO DAILY Rx Instructions: 2 caps daily escitalopram oxalate 10 mg tablet 20 mg PO DAILY insulin aspart U-100 100 unit/mL (3 mL) insulin pen See Rx Instructions .ROUTE .COMPLEX Rx Instructions: Breakfast and Dinner SSI 141-180=2Units,181-220=4units,221-260=6units,261-300=8units,301-400=14units aripiprazole 5 mg tablet 5 mg PO DAILY Rx Instructions: takes with 2mg tab memantine 10 mg tablet 10 mg PO BID aripiprazole 2 mg tablet 2 mg PO DAILY Rx Instructions: takes with 5mg tab nystatin 100,000 unit/gram Powder 1 applic TOPICAL PRN PRN (Reason: Antifungal ) Novolog FlexPen U-100 Insulin 2 - 14 units BID Rx Instructions: <140 give 0. 141-180 give 2 units 181-220 give 4 units 221-260 give 6 units 261-300 give 8 units. 301-400 give 14 units. >400 call guaifenesin [Mucus Relief ER] 600 mg Tablet Extended Release 12hr 600 mg PO Q12HR Qty: 10 0RF metoprolol tartrate 25 mg tablet 6.25 mg PO BID Qty: 30 0RF prednisone 20 mg Tablet 50 mg PO DAILY@0800 Qty: 4 0RF Follow-up/Referrals: PHYSICIAN,ROOMING HOUSE INSPECTOR [Primary Care Provider] - Time of Disposition: 03:30
[2024-06-14] MEDS: LACTATED RINGERS 1,000 ML 999 ML IV CONT (01:00)
[2024-06-14] MEDS: methylPREDNISolone SOD SUCC 40 MG VIAL IV PUSH ×2 (01:01→12:25)
[2024-06-14 01:06] LABS: Alanine Aminotransferase 44 U/L (6-35); Albumin Level 3.6 g/dL (3.5-5.1); Alkaline Phosphatase 109 U/L (38-126); Anion Gap 11 mmol/L (4-12); Aspartate Amino Transferase 71 U/L (14-36); Bilirubin,Total 0.4 mg/dL (0.2-1.3); Blood Urea Nitrogen 17 mg/dL (7-17); Calcium 8.6 mg/dL (8.4-10.2); Carbon Dioxide 27 mmol/L (22-30); Chloride 101 mmol/L (98-107); Estimated CRCL calculation 77 ml/min; Estimated Glomerular Filt Rate > 60; Glucose 157 mg/dL (65-110); Potassium 3.8 mmol/L (3.4-5.0); Sodium 139 mmol/L (137-145)
[2024-06-14] MEDS: IPRATROPIUM 0.5 MG/ALBUTEROL SULFATE 2.5 MG AMPUL.NEB 3 ML INHALATION ×6 (01:11→20:41)
[2024-06-14 01:14] LABS: NT Pro B Type Natriuretic Pept 523 pg/mL (19.9-100)
--- NOTE | 2024-06-14 01:17 | PCRCNOTE ---
All 3 TX given at once per ER
[2024-06-14 01:18] LABS: Troponin I < 0.012 ng/mL (0.000-0.034)
[2024-06-14] MEDS: cefTRIAXone 2 GM/NS 100 ML 2 GM/100 ML BAG IVPB (02:17)
[2024-06-14] MEDS: DOXYCYCLINE 100 MG/NS 100 ML 100 MG/100 ML BAG IVPB ×2 (03:00→15:12)
--- NOTE | 2024-06-14 05:07 | ADMGEN ---
This patient, Marleni Mcgrath, was admitted to Medical Room 247-. Patient/family oriented to hospital policies and general routines including ID bracelet, bed and alarms, visiting hours, pain management, procedures, bathroom and other care routines, personal items, smoking policy, room service/diet, and visiting hours. Information on how to activate the Rapid Response Team has been discussed. Patient/Family are encouraged to report perceived risks to care and to ask questions if they do not understand what they are told or what they should do.
--- NOTE | 2024-06-14 05:56 | P.HP_ITS ---
H&P: HPI History of Present Illness Date/Time: 06/14/24 05:56 Chief Complaint: 1. Shortness of breath Narrative: Marleni Mcgrath is a 73F with a mHx significant for obesity, sedentary status/wheelchair bound, chronic pain, RLS, Insomnia, GERD, IDDM2, Dementia A resident of [facility], she at baseline is sedentary and on a 3L supplemental oxygen regimen; she has remained stable until about the last 1-2 weeks when she developed progressing shortness of breath; it was first present on minimal-moderate exertion but in the 24 hours [employer] came to be present at rest; it is associated with a cough productive of scanty sputum, malaise, fatigue and a restriction of her ADLs. She denies fevers, chest pain, dizziness, palpitations, hemoptysis or LOC. She does not smoke/chew tobacco, drink alcohol or consume recreational/illicit drugs; her Work-up findings: CXR: Small right pleural effusion with probable right basilar atelectasis versus pneumonia. Correlate clinically. Unremarkable CBC CMP remarkable for AST 71, ALT 44 Troponin: <0.012 BNP 523 Influenza A/B, RSV, COVID-19: None detected ECG: SR; HR 51; high AVB Marleni Mcgrath will be admitted, evaluated and managed for acute on chronic hypoxia, Pneumonia and COPD exacerbation Review of Systems Review of Systems: All systems reviewed & are unremarkable except as noted in HPI and below PMFSH Past Medical History Medical History Psychosis Patient has had a history of hallucinations/psychosis she is on Abilify. It is unclear for psychosis is due to dementia with psychosis verses depression with psychosis or history of possible underlying bipolar patient is not able to provide the details Restless leg syndrome Dementia Mild T12 burst fracture Compression fracture of L1 vertebra Cholelithiasis Anxiety and depression Breast cancer With history of radiation therapy and chemotherapy Dysphagia Iron deficiency anemia Type 2 diabetes mellitus treated with insulin Essential tremor Chronic hypoxic respiratory failure, on home oxygen therapy CHF (congestive heart failure) Chronic constipation Portal hypertensive gastropathy Cirrhosis Chronic anticoagulation COPD (chronic obstructive pulmonary disease) Diabetes Closed fracture of left proximal humerus Surgical History Surgical History History of bilateral mastectomy History of colonoscopy with polypectomy Family History Family History Other Unknown family medical history Social History Social History Smoking packs per day: 1 Smoking cigarettes per day: 20.0 Years smoked: 50 Smoking pack-years: 50.00 Smoking status: Former smoker Second hand tobacco smoke exposure: No Alcohol intake: never Substance use: never Do You Feel Safe in your Home?: Yes Lack of Transportation: No Lack of Food: Never True Current Housing: I Have Housing Concerned About Future Housing: No Difficulty Paying Gas/Electric Bills: No Difficulty Paying for Meds: No Currently Unemployed: No Education: High School Diploma/GED Difficulty w/ Childcare or Family Care: No Spiritual care concerns: No Meds Home Medications and Allergies Home Medications ?Medication ?Instructions ?Recorded ?Confirmed ?Type acetaminophen 650 mg tablet 650 mg PO Q6H PRN pain 10/28/23 06/14/24 History albuterol sulfate 90 mcg/actuation 2 puff inhalation Q4H PRN 10/28/23 06/14/24 History aerosol inhaler Shortness Of Breath Or Wheezing aripiprazole 2 mg tablet 2 mg PO DAILY 10/28/23 06/14/24 History aripiprazole 5 mg tablet 5 mg PO DAILY 10/28/23 06/14/24 History buspirone 10 mg tablet 10 mg PO TID 10/28/23 06/14/24 History cholecalciferol (vitamin D3) 25 25 mcg PO DAILY 10/28/23 06/14/24 History mcg (1,000 unit) capsule (Vitamin D3) escitalopram oxalate 10 mg tablet 20 mg PO DAILY 10/28/23 06/14/24 History ferrous sulfate 325 mg (65 mg 325 mg PO DAILY 10/28/23 06/14/24 History iron) tablet furosemide 40 mg tablet 40 mg PO DAILY 10/28/23 06/14/24 History gabapentin 600 mg tablet 600 mg PO TID 10/28/23 06/14/24 History insulin aspart U-100 100 unit/mL See Rx Instructions .Route .COMPLEX 10/28/23 06/14/24 History (3 mL) subcutaneous pen lorazepam 0.5 mg tablet 0.5 mg PO QHS 10/28/23 06/14/24 History memantine 10 mg tablet 10 mg PO BID 10/28/23 06/14/24 History metformin 500 mg tablet 500 mg PO DAILY 10/28/23 06/14/24 History primidone 50 mg tablet 50 mg PO BID 10/28/23 06/14/24 History ropinirole 0.5 mg tablet 0.5 mg PO QHS 10/28/23 06/14/24 History tamoxifen 20 mg tablet 20 mg PO DAILY 10/28/23 06/14/24 History tramadol 50 mg tablet 50 mg PO QID 10/28/23 06/14/24 History trazodone 50 mg tablet 50 mg PO QHS 10/28/23 06/14/24 History aluminum-mag hydroxide-simethicone 5 ml PO Q6H PRN Heartburn 01/11/24 06/14/24 History 400 mg-400 mg-40 mg/5 mL oral susp (Maalox Maximum Strength) calcium carbonate 400 mg PO Q8H PRN Heartburn 01/11/24 06/14/24 History cyanocobalamin (vitamin B-12) 250 250 mcg PO DAILY 01/11/24 06/14/24 History mcg tablet ipratropium 0.5 mg-albuterol 3 mg 3 ml inhalation Q6H PRN 01/11/24 06/14/24 History (2.5 mg base)/3 mL nebulization sob/wheezing soln magnesium hydroxide 2,400 mg/10 mL 30 ml PO Q6H PRN Constipation 01/11/24 06/14/24 History oral suspension (Milk Of Magnesia Concentrated) multivitamin with minerals 1 tablet PO DAILY 01/11/24 06/14/24 History (Multiple Vitamin-Minerals tablet) naloxone 4 mg/actuation nasal 1 spray intranasal Q2-3M PRN 01/11/24 06/14/24 History spray (Narcan) Opiate Reversal ondansetron 4 mg disintegrating 4 mg PO Q8H PRN Nausea And Vomiting 01/11/24 06/14/24 History tablet pantoprazole 40 mg tablet,delayed 40 mg PO QAM 01/11/24 06/14/24 History release polyethylene glycol 3350 17 17 g PO HS PRN Constipation 01/11/24 06/14/24 History gram/dose oral powder (Miralax) pyridoxine (vitamin B6) 25 mg 25 mg PO DAILY 01/11/24 06/14/24 History tablet sennosides 8.6 mg tablet (senna) 8.6 mg PO BID 01/11/24 06/14/24 History apixaban 5 mg tablet (Eliquis) 5 mg PO Q12HR #60 tabs 01/14/24 06/14/24 Rx losartan 25 mg tablet 12.5 mg (1/2 x 25 mg) PO DAILY #30 01/14/24 06/14/24 Rx tabs Novolog FlexPen U-100 Insulin 2 - 14 units .Route BID 03/27/24 06/14/24 History nystatin 100,000 unit/gram topical 1 applic topical PRN PRN Antifungal 03/27/24 06/14/24 History powder metoprolol tartrate 25 mg tablet 6.25 mg (1/4 x 25 mg) PO BID #30 04/02/24 06/14/24 Rx tabs amiodarone 200 mg tablet (Pacerone) 200 mg PO Q24H 06/14/24 06/14/24 History levalbuterol tartrate 45 1 inh inhalation TID PRN shortness 06/14/24 06/14/24 History mcg/actuation aerosol inhaler of breath or wheezing Allergies Allergy/AdvReac Type Severity Reaction Status Date / Time amoxicillin (From Augmentin) Allergy Unknown Verified 06/13/24 23:32 clavulanic acid (From Allergy Unknown Verified 06/13/24 23:32 Augmentin) Vital Signs Vital Signs - 24 hr 06/13/24 23:26 06/13/24 23:49 06/13/24 23:50 Temperature 98 F Pulse Rate 53 L 59 L Respiratory Rate 22 H Blood Pressure 104/53 L Pulse Oximetry 94 94 Oxygen Delivery Nasal Cannula Nasal Cannula Oxygen Flow Rate 3 3 06/13/24 23:51 06/13/24 23:52 06/14/24 01:15 Temperature 98.3 F Pulse Rate 59 L 48 L Respiratory Rate 20 12 Blood Pressure 98/87 L Pulse Oximetry 94 94 Oxygen Delivery Nasal Cannula Oxygen Flow Rate 3 06/14/24 01:36 06/14/24 01:55 06/14/24 03:00 Temperature 97.9 F 97.8 F Pulse Rate 52 L 78 Respiratory Rate 18 15 Blood Pressure 115/70 145/103 H Pulse Oximetry 100 94 93 Oxygen Delivery Nasal Cannula Oxygen Flow Rate 3 06/14/24 03:29 06/14/24 04:50 06/14/24 05:13 Temperature 98.4 F Pulse Rate 76 Respiratory Rate 20 Blood Pressure 128/68 Pulse Oximetry 92 98 98 Oxygen Delivery Nasal Cannula Nasal Cannula Oxygen Flow Rate 4 4 Exam Const: General: in distress HENMT: Face/Nose/Sinus: Normal nares present Mouth: Yes moist mucous membranes Eyes: General: appearance normal, both eyes and all related structures Pupils: Equal, round and reactive pupils present Neck: Neck: supple Resp: Auscultation: wheezes and diminished lung sounds bilateral Cardio: Rate: regular rate Rhythm: abnormal rhythm Skin: General skin exam: normal color Lesions: no lesions noted Rashes: no rashes noted Neuro: General: No gait normal Motor exam (neuro): strength not 5/5 throughout (Bilateral LE weakness) and strength normal (Bilateral LE weakness) Extrem: General: abnormal to inspection (Bilateral foot drop) Psych: Mental Status: mental status grossly normal H&P: Results Labs Labs: Short CBC 06/14/24 Range/Units 00:03 WBC 9.9 (4.5-10.0) K/mm3 Hgb 11.8 L (12.0-15.0) g/dL Hct 38.3 (37.0-47.0) % Plt Count 285 (150-375) k/mm3 BMP 06/14/24 00:41 Sodium 139 Potassium 3.8 Chloride 101 Carbon Dioxide 27 BUN 17 Creatinine 0.60 L Glucose 157 H Calcium 8.6 Cardiac Enzymes 06/14/24 Range/Units 00:41 Troponin I < 0.012 (0.000-0.034) ng/mL Liver Function 06/14/24 Range/Units 00:41 Total Bilirubin 0.4 (0.2-1.3) mg/dL AST 71 H (14-36) U/L ALT 44 H (6-35) U/L Alkaline Phosphatase 109 (38-126) U/L Albumin 3.6 (3.5-5.1) g/dL Assessment and Plan Assessment and plan (1) Shortness of breath: Code(s): R06.02 - Shortness of breath Status: Acute (2) Pneumonia: Code(s): J18.9 - Pneumonia, unspecified organism Status: Acute (3) Chronic hypoxic respiratory failure, on home oxygen therapy: Code(s): J96.11 - Chronic respiratory failure with hypoxia; Z99.81 - Dependence on supplemental oxygen Status: Acute (4) Acute and chronic respiratory failure with hypoxia: Code(s): J96.21 - Acute and chronic respiratory failure with hypoxia Status: Acute Plan Acute and Principal conditions 1. Acute on chronic hypoxia 2. COPD exacerbation 3. Pneumonia, RLL. 4. Elevated BNP; probable fluid overload 5. Pleural effusion Rx: A. DuoNebs, Ceftriaxone, Doxycycline, Furosemide, Solumedrol B. Supplemental oxygen with wean as tolerated C. IS Chronic and stable conditions 1. Sedentary status; Wheelchair bound 2. Chronic A-fib. 3. Bipolar disorder. 4. Peripheral neuropathy. 5. COPD. 6. Dementia. 7. Obesity, BMI 36 8. IDDM2. 9. GERD. 10. RLS. 11. Insomnia. Miscellaneous care. 1. Code status. Full 2. VTE prophylaxis. SCDs; Apixaban 3. Nutrition. Heart healthy Hospitalist [facility] Advance Care Plan I have confirmed that the patient's Advanced Care Plan is present, code status is documented, or surrogate decision maker is listed in patient medical record.: Yes Medication Reconciliation I have utilized all available resources to obtain, update and review the patients current medications (includes all prescriptions, OTC, herbals, cannabis, and nutritional supplements).: Yes The patient is not eligible for med reconciliation; the patient is in a emergent medical situation where delaying treatment would jeopardize the patients health.: Yes
[2024-06-14 06:06] LABS: Basophils Percent Auto 0.3 % (0.2-1.2); Hemoglobin 11.1 g/dL (12.0-15.0); Immature Granulocyte Absolute 0.02 K/mm3 (0.00-0.031); Immature Granulocyte Percent A 0.3 % (0-0.5); Lymphocytes Absolute Auto 0.45 K/mm3 (0.9-3.2); Lymphocytes Percent Auto 6.8 % (18.3-44.2); Mean Corpuscular HGB Conc 29.2 g/dl (32-36); Mean Corpuscular Hemoglobin 27.1 pg (26-34); Mean Corpuscular Volume 92.7 fl (80-100); Monocytes Absolute Auto 0.1 K/mm3 (0.1-0.6); Monocytes Percent Auto 0.9 % (2.6-8.5); Neutrophils Percent Auto 91.7 % (45.5-73.1); Platelet Count Result 226 k/mm3 (150-375); Red Cell Distribution Width 16.3 % (11.5-14.5); White Blood Count 6.6 K/mm3 (4.5-10.0)
[2024-06-14 06:29] LABS: Alanine Aminotransferase 48 U/L (6-35); Albumin Level 3.9 g/dL (3.5-5.1); Alkaline Phosphatase 101 U/L (38-126); Anion Gap 12 mmol/L (4-12); Aspartate Amino Transferase 74 U/L (14-36); Bilirubin,Total 0.3 mg/dL (0.2-1.3); Blood Urea Nitrogen 13 mg/dL (7-17); Calcium 8.5 mg/dL (8.4-10.2); Carbon Dioxide 27 mmol/L (22-30); Chloride 101 mmol/L (98-107); Estimated CRCL calculation 94 ml/min; Estimated Glomerular Filt Rate > 60; Glucose 189 mg/dL (65-110); Potassium 4.2 mmol/L (3.4-5.0); Sodium 140 mmol/L (137-145)
[2024-06-14] MEDS: FUROSEMIDE INJ 40 MG/4 ML VIAL IV PUSH (06:43)
[2024-06-14 07:20] LABS: Hypochromasia 2+; Platelet Estimate Adequate (Adequate); Schistocytes None Seen
--- NOTE | 2024-06-14 07:44 | P.PNIM_ITS ---
Progress Note: A&P Assessment and Plan (1) Shortness of breath: Code(s): R06.02 - Shortness of breath Status: Acute Assessment and Plan: 06/14/24: * Etiology PNA vs. Atelectasis vs. Right Pleural Effusion vs. COPD exacerbation * Telemetry * Continue to monitor and trend VS and labs. * CXR was reviewed independently by myself. Will obtain CT chest to further delineate among atelectasis vs. PNA vs other etiologies. * Interim continuation of Duonebs Q6, prn Albuterol Q4 hrs, Rocephin and Doxy, Solumedrol and Furosemide. * Once results of CT available, de-escalate meds for treatment and supportive care as appropriate. * Continue NC at 4L for oxygen supplementation support. * Incentive Spirometer (2) Pneumonia: Code(s): J18.9 - Pneumonia, unspecified organism Status: Acute Assessment and Plan: 06/14/24: * Obtain CT to further determine if this is the causative etiology of Dyspnea. * Continue Doxy and Rocephin for now. * Continue Duonebs and Albuterol. (3) Chronic hypoxic respiratory failure, on home oxygen therapy: Code(s): J96.11 - Chronic respiratory failure with hypoxia; Z99.81 - Dependence on supplemental oxygen Status: Chronic Assessment and Plan: 06/14/24: * Chronic 3L supplemental oxygen at home. * Monitor oxygenation. (4) Acute and chronic respiratory failure with hypoxia: Code(s): J96.21 - Acute and chronic respiratory failure with hypoxia Status: Acute Assessment and Plan: 06/14/24: * See Above. (5) CHF (congestive heart failure): Code(s): I50.9 - Heart failure, unspecified Status: Acute Assessment and Plan: 06/14/24: * Last ECHO 12/2023 w/EF of 35%, [place] Cardiomyopathy pattern, and Grade 1 Diastolic Dysfunction * Obtain new ECHO given possible exacerbation of CHF. * Continue Lasix 40 mg BID IVP for now based on findings of CXR. * Obtain CT Chest with contrast. (6) Atrial fibrillation: Code(s): I48.91 - Unspecified atrial fibrillation Status: Chronic Assessment and Plan: 06/14/24: * Continue Amiodarone * Continue rate control with Metoprolol * Continue Eliquis * Telemetry (7) Chronic anticoagulation: Code(s): Z79.01 - nursing home (current) use of anticoagulants Status: Chronic Assessment and Plan: 06/14/24: * Continue Eliquis (8) Diabetes: Qualifiers: Diabetes mellitus complication status: without complication Diabetes mellitus fdc insulin use: without fdc use Diabetes mellitus type: type 2 Qualified Code(s): E11.9 - Type 2 diabetes mellitus without complications Code(s): E11.9 - Type 2 diabetes mellitus without complications Status: Acute Assessment and Plan: 06/14/24: * SSI * Hypoglycemic protocol * Heart Healthy diet * Check A1C (9) Hallucinations: Code(s): R44.3 - Hallucinations, unspecified Status: Acute Assessment and Plan: 06/14/24: * Suspect degree of dementia associated with. * Continue Namenda and Abilify. (10) Chronic pain: Code(s): G89.29 - Other chronic pain Status: Acute Assessment and Plan: 06/14/24: * Continue Home Tramadol. (11) Restless leg syndrome: Code(s): G25.81 - Restless legs syndrome Status: Acute Assessment and Plan: 06/14/24: * Continue Requip and Ativan as home meds. (12) Transaminitis: Code(s): R74.01 - Elevation of levels of liver transaminase levels Status: Chronic Assessment and Plan: 06/14/24: * Pt asymptomatic. * Review of EMR shows chronically elevated transaminases. (13) Abnormality of gait and mobility: Code(s): R26.9 - Unspecified abnormalities of gait and mobility Status: Chronic Assessment and Plan: 06/14/24: * At baseline pt has weakness and difficulty in moving her BLE. She states she has always had difficulty since she took Chemotherapy for her Breast CA and it has left her basically W/C bound and she relies on a christopher lift. * No new focal deficits. Time Spent With Patient Time with patient: 15 - 25 minutes Subjective Date/time seen: 06/14/24 07:44 Interval history: Pt admitted earlier this AM was examined and states she continues to feel dyspneic. She is currently on 4L supplemental oxygen. She denies any pain and does not appear to be in any acute distress or acute decompensation. Pts CXR showed that she had PNA vs. COPD Exacerbation Atelectasis vs. Pulm effusion and she was started on Antibiotics, nebs, steroids, Lasix. CT Chest ordered today to get a better idea of true cause. Will continue current treatment and de-escalate meds as able to. Review of Systems Review of Systems: All systems reviewed & are unremarkable except as noted in HPI and below Exam Const: General: comfortable and no acute distress Other: Obese female pt lying supine. HENMT: Mouth: Yes moist mucous membranes Eyes: General: appearance normal, both eyes and all related structures Neck: Neck: supple and no JVD Resp: Effort & Inspection: normal respiratory effort Auscultation: rhonchi and wheezes Cardio: Rate: regular rate Rhythm: regular rhythm Heart sounds: no gallops, no murmurs and no rubs GI: Inspection: non-distended GI Palp: Yes Soft to palpation and No Tenderness to palpation present (GI) Auscultation: normal bowel sounds Skin: General skin exam: normal color and no rashes or lesions noted Wounds: no wounds Neuro: Speech: normal speech Motor exam (neuro): 5/5 motor strength present throughout and Normal motor muscle tone present throughout Sensory Exam: normal sensation Extrem: General: normal to inspection and no edema (Decreased AROM of BLE - Pt at baseline w/ this as she is W/C bound w/christopher) Psych: Mental Status: mental status grossly normal Affect: normal affect Objective Data Vital Signs Vital Signs: Vital Signs - 24 hr 06/13/24 23:26 06/13/24 23:49 06/13/24 23:50 Temperature 98 F Pulse Rate 53 L 59 L Respiratory Rate 22 H Blood Pressure 104/53 L Pulse Oximetry 94 94 Oxygen Delivery Nasal Cannula Nasal Cannula Oxygen Flow Rate 3 3 06/13/24 23:51 06/13/24 23:52 06/14/24 01:15 Temperature 98.3 F Pulse Rate 59 L 48 L Respiratory Rate 20 12 Blood Pressure 98/87 L Pulse Oximetry 94 94 Oxygen Delivery Nasal Cannula Oxygen Flow Rate 3 06/14/24 01:36 06/14/24 01:55 06/14/24 03:00 Temperature 97.9 F 97.8 F Pulse Rate 52 L 78 Respiratory Rate 18 15 Blood Pressure 115/70 145/103 H Pulse Oximetry 100 94 93 Oxygen Delivery Nasal Cannula Oxygen Flow Rate 3 06/14/24 03:29 06/14/24 04:50 06/14/24 05:13 Temperature 98.4 F Pulse Rate 76 Respiratory Rate 20 Blood Pressure 128/68 Pulse Oximetry 92 98 98 Oxygen Delivery Nasal Cannula Nasal Cannula Oxygen Flow Rate 4 4 Intake/Output Intake/Output: Intake & Output 06/11/24 06/12/24 06/13/24 06/14/24 23:59 23:59 23:59 23:59 Intake Total 1200 Output Total 200 Balance 1000 Meds/Results Medications: Active Medications Generic Name Dose Route Start Last Admin Trade Name Freq PRN Reason Stop Dose Admin Acetaminophen 650 mg 06/14/24 03:30 Acetaminophen 325 Mg Tablet PO Q4H PRN Mild Pain (1-3) or Fever Albuterol/Ipratropium 3 ml 06/14/24 04:50 Ipratropium 0.5 Mg/Albuterol Sulfate 2.5 Mg Ampul.Neb 3 Ml INHALATION Q4HRT PRN shortness of breath/Wheezing Furosemide 40 mg 06/14/24 07:00 06/14/24 06:43 Furosemide Inj 40 Mg/4 Ml Vial IV PUSH 40 mg Q12H NICOLE Administration Guaifenesin/Dextromethorphan 10 ml 06/14/24 04:50 Guaifenesin/Dextromethorphan 10 Ml Udc PO Q4H PRN Cough Heparin Sodium (Porcine) 5,000 units 06/14/24 09:00 Heparin Sodium 5,000 Units/Ml Vial SUB-Q Q12HR [facility] Ceftriaxone Sodium 1 gm in 50 mls @ 100 mls/hr 06/15/24 02:00 Rocephin 1 Gm/Ns 50 Ml IVPB 06/20/24 01:59 Q24H [facility] Doxycycline Hyclate 100 mg in 100 mls @ 100 mls/hr 06/14/24 15:00 Vibramycin 100 Mg/Ns 100 Ml IVPB 06/20/24 14:59 Q12H [facility] Melatonin 5 mg 06/14/24 04:50 Melatonin 5 Mg Tablet PO HS PRN Insomnia Methylprednisolone Sodium Succinate 40 mg 06/14/24 13:00 Methylprednisolone Sod Succ 40 Mg Vial IV PUSH Q12H NICOLE Ondansetron HCl 4 mg 06/14/24 03:30 Ondansetron Inj 4 Mg/2 Ml Vial IV PUSH Q4H PRN Nausea Perflutren Lipid Microsphere 0 ml 06/14/24 06:13 Perflutren Lipid Microspheres 1.5 Ml Vial Diluted To 10 Ml Total Volume IV PUSH 06/17/24 06:13 ONCE PRN adequate visualization Protocol Prochlorperazine Edisylate 10 mg 06/14/24 04:50 Prochlorperazine Edisylate 10 Mg/2 Ml Vial IV PUSH Q6H PRN Nausea And Vomiting Radiology Results: ITS Impressions Chest X-Ray 06/14/24 05:45 Impression: Small right pleural effusion with probable right basilar atelectasis versus pneumonia. Correlate clinically. Left-sided Mediport. Labs Labs: Laboratory Results - last 24 hr 06/14/24 06/14/24 06/14/24 00:03 00:41 00:41 WBC 9.9 RBC 4.20 Hgb 11.8 L Hct 38.3 MCV 91.2 MCH 28.1 MCHC 30.8 L RDW 16.4 H Plt Count 285 MPV 11.0 H Immature Gran % (Auto) 0.3 Neut % (Auto) 64.2 Lymph % (Auto) 25.9 Tyler % (Auto) 7.7 Eos % (Auto) 1.1 Baso % (Auto) 0.8 Lymph # (Auto) 2.56 Tyler # (Auto) 0.8 H Eos # (Auto) 0.1 Baso # (Auto) 0.1 Abs Immat Gran (auto) 0.03 Absolute Neuts (auto) 6.4 Absolute Nucleated RBC 0.000 Band Neutrophils % Nucleated RBC % 0.0 Platelet Estimate Hypochromasia Schistocytes Sodium 139 Potassium 3.8 Chloride 101 Carbon Dioxide 27 Anion Gap 11 BUN 17 Creatinine 0.60 L Estim Creat Clear Calc 77 Estimated GFR > 60 Glucose 157 H Calcium 8.6 Total Bilirubin 0.4 AST 71 H ALT 44 H Alkaline Phosphatase 109 Troponin I < 0.012 NT-Pro-B Natriuret Pep 523 H Cancelled Total Protein 7.0 Albumin 3.6 Influenza A (RT-PCR) Negative Influenza B (RT-PCR) Negative RSV (RT-PCR) Negative SARS-CoV-2 RNA (RT-PCR) Negative 06/14/24 05:40 WBC 6.6 RBC 4.10 L Hgb 11.1 L Hct 38.0 MCV 92.7 MCH 27.1 MCHC 29.2 L RDW 16.3 H Plt Count 226 MPV 11.0 H Immature Gran % (Auto) 0.3 Neut % (Auto) 91.7 H Lymph % (Auto) 6.8 L Tyler % (Auto) 0.9 L Eos % (Auto) 0.0 Baso % (Auto) 0.3 Lymph # (Auto) 0.45 L Tyler # (Auto) 0.1 Eos # (Auto) 0.0 Baso # (Auto) 0.0 Abs Immat Gran (auto) 0.02 Absolute Neuts (auto) 6.0 Absolute Nucleated RBC 0.000 Band Neutrophils % Not Reportable Nucleated RBC % 0.0 Platelet Estimate Adequate Hypochromasia 2+ Schistocytes None seen Sodium 140 Potassium 4.2 Chloride 101 Carbon Dioxide 27 Anion Gap 12 BUN 13 Creatinine 0.55 L Estim Creat Clear Calc 94 Estimated GFR > 60 Glucose 189 H Calcium 8.5 Total Bilirubin 0.3 AST 74 H ALT 48 H Alkaline Phosphatase 101 Troponin I NT-Pro-B Natriuret Pep Total Protein 7.0 Albumin 3.9 Influenza A (RT-PCR) Influenza B (RT-PCR) RSV (RT-PCR) SARS-CoV-2 RNA (RT-PCR) Quality VTE Prophylaxis VTE prophylaxis: mechanical ordered
[2024-06-14] MEDS: PANTOPRAZOLE 40 MG TABLET PO (09:46)
[2024-06-14] MEDS: FUROSEMIDE 40 MG TABLET PO (09:46)
[2024-06-14] MEDS: ESCITALOPRAM OXALATE 10 MG TABLET 20 MG PO (09:46)
[2024-06-14] MEDS: GABAPENTIN 300 MG CAPSULE 600 MG PO ×3 (09:46→17:23)
[2024-06-14] MEDS: APIXABAN 5 MG TABLET PO ×2 (09:46→20:43)
[2024-06-14] MEDS: CHOLECALCIFEROL 1,000 UNITS TABLET 1000 UNITS PO (09:46)
[2024-06-14] MEDS: busPIRone HCL 10 MG TABLET PO ×3 (09:46→17:24)
[2024-06-14] MEDS: traMADol HCL (*CRX) 50 MG TABLET PO ×4 (09:46→20:43)
[2024-06-14] MEDS: THERAPEUTIC MULTIVITAMINS/MINERALS TAB (*BKC) 1 TABLET PO (09:46)
[2024-06-14] MEDS: TAMOXIFEN CITRATE (*CHEMO) 10 MG TABLET 20 MG PO (09:47)
[2024-06-14] MEDS: LOSARTAN POTASSIUM 12.5 MG TABLET PO (09:47)
[2024-06-14] MEDS: ARIPiprazole 5 MG TABLET PO (09:47)
[2024-06-14] MEDS: CYANOCOBALAMIN 250 MCG TABLET PO (09:47)
[2024-06-14] MEDS: FERROUS SULFATE 325 MG TABLET DR BY MOUTH (09:47)
[2024-06-14] MEDS: PRIMIDONE 50 MG TABLET PO ×2 (09:47→17:24)
[2024-06-14] MEDS: AMIODARONE HCL 200 MG TABLET PO (09:47)
[2024-06-14] MEDS: MEMANTINE 10 MG TABLET PO ×2 (09:47→17:24)
[2024-06-14] MEDS: METOPROLOL TARTRATE 6.25 MG TABLET PO ×2 (09:47→17:24)
[2024-06-14] MEDS: SENNOSIDES 8.6 MG TABLET PO ×2 (09:47→17:24)
[2024-06-14] MEDS: PYRIDOXINE HCL 25 MG TABLET PO (09:48)
[2024-06-14] MEDS: ARIPiprazole 2 MG TABLET PO (09:48)
[2024-06-14] MEDS: HEPARIN SODIUM 5,000 UNITS/ML VIAL 5000 UNITS SUB-Q ×2 (09:55→20:44)
[2024-06-14] MEDS: INSULIN ASPART (*BKC) 100 UNITS/ML SUB-Q ×3 (09:55→21:01)
[2024-06-14 10:03] LABS: Glucose Point of Care 240 mg/dl (65-105)
[2024-06-14 12:04] LABS: Glucose Point of Care 252 mg/dl (65-105)
[2024-06-14] MEDS: PERFLUTREN LIPID MICROSPHERES 1.5 ML VIAL DILUTED TO 10 ML TOTAL VOLUME IV PUSH (13:40)
--- NOTE | 2024-06-14 14:12 | IVDEFINITY ---
Prior to administration of IV Definity the patient was educated on the risks and benefits of the imaging enhancing agent including potential adverse side effects. The patient verbalized understanding. Allergies were verified. No exclusion criteria were identified and at least one of the following inclusion criteria were met: 1) physician request, 2) patient technically difficult to image (per the [place] [employer] guidelines of two or more segments not discernable within the apical view), or 3) questionable left ventricular function. ?
[2024-06-14 14:43] LABS: Hemoglobin A1C 5.8 % (<5.7)
[2024-06-14 17:03] LABS: Glucose Point of Care 176 mg/dl (65-105)
[2024-06-14 20:27] LABS: Glucose Point of Care 229 mg/dl (65-105)
[2024-06-14] MEDS: LORazepam (*CRX) 0.5 MG TABLET PO (20:42)
[2024-06-14] MEDS: rOPINIRole HCL 0.5 MG TABLET PO (20:43)
[2024-06-14] MEDS: ACETAMINOPHEN 325 MG TABLET 650 MG PO (20:43)
[2024-06-14] MEDS: traZODone HCL 50 MG TABLET PO (20:43)
[2024-06-15] VITALS (20 sets, daily range): BP systolic 105–124; BP diastolic 48–87; PULSE 58–82; RESP 18–20; TEMP 35.8–36.6; O2SAT 91–97
[2024-06-15] MEDS: methylPREDNISolone SOD SUCC 40 MG VIAL IV PUSH ×2 (01:40→12:22)
[2024-06-15] MEDS: DOXYCYCLINE 100 MG/NS 100 ML 100 MG/100 ML BAG IVPB ×2 (02:15→14:44)
[2024-06-15 06:23] LABS: Basophils Percent Auto 0.2 % (0.2-1.2); Hematocrit 33.1 % (37.0-47.0); Immature Granulocyte Absolute 0.03 K/mm3 (0.00-0.031); Immature Granulocyte Percent A 0.3 % (0-0.5); Lymphocytes Percent Auto 8.7 % (18.3-44.2); Mean Corpuscular HGB Conc 30.2 g/dl (32-36); Mean Corpuscular Hemoglobin 27.8 pg (26-34); Mean Corpuscular Volume 91.9 fl (80-100); Monocytes Absolute Auto 0.2 K/mm3 (0.1-0.6); Neutrophils Absolute Auto 8.1 K/mm3 (1.3-6.7); Neutrophils Percent Auto 88.8 % (45.5-73.1); Platelet Count Result 196 k/mm3 (150-375); Red Cell Distribution Width 16.4 % (11.5-14.5); White Blood Count 9.2 K/mm3 (4.5-10.0)
[2024-06-15 06:41] LABS: Alanine Aminotransferase 33 U/L (6-35); Albumin Level 3.7 g/dL (3.5-5.1); Alkaline Phosphatase 84 U/L (38-126); Anion Gap 7 mmol/L (4-12); Aspartate Amino Transferase 41 U/L (14-36); Bilirubin,Total 0.4 mg/dL (0.2-1.3); Blood Urea Nitrogen 15 mg/dL (7-17); Calcium 8.4 mg/dL (8.4-10.2); Carbon Dioxide 29 mmol/L (22-30); Chloride 102 mmol/L (98-107); Estimated CRCL calculation 93 ml/min; Estimated Glomerular Filt Rate > 60; Glucose 163 mg/dL (65-110); Potassium 4.4 mmol/L (3.4-5.0); Sodium 138 mmol/L (137-145)
[2024-06-15] MEDS: FUROSEMIDE INJ 40 MG/4 ML VIAL IV PUSH (06:49)
[2024-06-15] MEDS: IPRATROPIUM 0.5 MG/ALBUTEROL SULFATE 2.5 MG AMPUL.NEB 3 ML INHALATION ×3 (08:04→20:16)
[2024-06-15 08:11] LABS: Glucose Point of Care 213 mg/dl (65-105)
[2024-06-15] MEDS: CYANOCOBALAMIN 250 MCG TABLET PO (09:35)
[2024-06-15] MEDS: TAMOXIFEN CITRATE (*CHEMO) 10 MG TABLET 20 MG PO (09:35)
[2024-06-15] MEDS: ARIPiprazole 5 MG TABLET PO (09:35)
[2024-06-15] MEDS: LOSARTAN POTASSIUM 12.5 MG TABLET PO (09:35)
[2024-06-15] MEDS: METOPROLOL TARTRATE 6.25 MG TABLET PO ×2 (09:35→17:21)
[2024-06-15] MEDS: GABAPENTIN 300 MG CAPSULE 600 MG PO ×3 (09:35→17:21)
[2024-06-15] MEDS: ARIPiprazole 2 MG TABLET PO (09:35)
[2024-06-15] MEDS: CHOLECALCIFEROL 1,000 UNITS TABLET 1000 UNITS PO (09:35)
[2024-06-15] MEDS: THERAPEUTIC MULTIVITAMINS/MINERALS TAB (*BKC) 1 TABLET PO (09:36)
[2024-06-15] MEDS: AMIODARONE HCL 200 MG TABLET PO (09:36)
[2024-06-15] MEDS: SENNOSIDES 8.6 MG TABLET PO ×2 (09:36→17:21)
[2024-06-15] MEDS: PANTOPRAZOLE 40 MG TABLET PO (09:36)
[2024-06-15] MEDS: FERROUS SULFATE 325 MG TABLET DR BY MOUTH (09:36)
[2024-06-15] MEDS: APIXABAN 5 MG TABLET PO ×2 (09:36→21:21)
[2024-06-15] MEDS: PRIMIDONE 50 MG TABLET PO ×2 (09:36→17:21)
[2024-06-15] MEDS: PYRIDOXINE HCL 25 MG TABLET PO (09:36)
[2024-06-15] MEDS: busPIRone HCL 10 MG TABLET PO ×3 (09:36→17:21)
[2024-06-15] MEDS: traMADol HCL (*CRX) 50 MG TABLET PO ×4 (09:36→21:21)
[2024-06-15] MEDS: MEMANTINE 10 MG TABLET PO ×2 (09:36→17:21)
[2024-06-15] MEDS: ESCITALOPRAM OXALATE 10 MG TABLET 20 MG PO (09:37)
[2024-06-15] MEDS: INSULIN ASPART (*BKC) 100 UNITS/ML SUB-Q ×2 (09:37→17:22)
[2024-06-15 09:42] LABS: Magnesium 2.1 mg/dL (1.6-2.3)
[2024-06-15 09:50] LABS: NT Pro B Type Natriuretic Pept 297 pg/mL (19.9-100)
--- NOTE | 2024-06-15 11:23 | P.PNIM_ITS ---
Progress Note: A&P Assessment and Plan (1) Shortness of breath: Code(s): R06.02 - Shortness of breath Status: Acute Assessment and Plan: 06/14/24: * Etiology PNA vs. Atelectasis vs. Right Pleural Effusion vs. COPD exacerbation * Telemetry * Continue to monitor and trend VS and labs. * CXR was reviewed independently by myself. Will obtain CT chest to further delineate among atelectasis vs. PNA vs other etiologies. * Interim continuation of Duonebs Q6, prn Albuterol Q4 hrs, Rocephin and Doxy, Solumedrol and Furosemide. * Once results of CT available, de-escalate meds for treatment and supportive care as appropriate. * Continue NC at 4L for oxygen supplementation support. * Incentive Spirometer 06/15/24: * Interim continuation of Duonebs Q6, prn Albuterol Q4 hrs, Rocephin and Doxy, Solumedrol and Furosemide. * Chest CT- IMPRESSION: 1. Severe emphysema. 2. Cirrhosis of the liver. 3. Chronic small pericardial effusion. * 02@3LNC with Sa02 96%. * Incentive spirometer. (2) Pneumonia: Code(s): J18.9 - Pneumonia, unspecified organism Status: Acute Assessment and Plan: 06/14/24: * Obtain CT to further determine if this is the causative etiology of Dyspnea. * Continue Doxy and Rocephin for now. * Continue Duonebs and Albuterol. 06/15/24: * Interim continuation of Duonebs Q6, prn Albuterol Q4 hrs, Rocephin and Doxy, Solumedrol and Furosemide. * Chest CT- IMPRESSION: 1. Severe emphysema. 2. Cirrhosis of the liver. 3. Chronic small pericardial effusion. * 02@3LNC with Sa02 96%. * Incentive spirometer. (3) Chronic hypoxic respiratory failure, on home oxygen therapy: Code(s): J96.11 - Chronic respiratory failure with hypoxia; Z99.81 - Dependence on supplemental oxygen Status: Chronic Assessment and Plan: 06/14/24: * Chronic 3L supplemental oxygen at home. * Monitor oxygenation. 06/15/24: * 02@3LNC with Sa02 96%. (4) Acute and chronic respiratory failure with hypoxia: Code(s): J96.21 - Acute and chronic respiratory failure with hypoxia Status: Acute Assessment and Plan: 06/14/24: * See Above. (5) CHF (congestive heart failure): Code(s): I50.9 - Heart failure, unspecified Status: Acute Assessment and Plan: 06/14/24: * Last ECHO 12/2023 w/EF of 35%, [place] Cardiomyopathy pattern, and Grade 1 Diastolic Dysfunction * Obtain new ECHO given possible exacerbation of CHF. * Continue Lasix 40 mg BID IVP for now based on findings of CXR. * Obtain CT Chest with contrast. 06/15/24: * Echocardiogram 06/14/24: Summary 1. Definity contrast administered improved wall motion interpretation. 2. Left ventricular chamber dimension is normal. 3. Left ventricular systolic function is normal, estimated at 65-70%. 4. There is moderate concentric increased left ventricular wall thickness. 5. The left ventricular diastolic function is abnormal. 6. E/e' 12 is mildly elevated. 7. The aortic valve is not well visualized. Cannot determine number of aortic valve leaflets. 8. There is moderate aortic valve sclerosis. 9. There is moderate aortic valve stenosis with a peak velocity of 302 cm/s, mean gradient of 17 mmHg, and aortic valve area of 1.2 cm2. 10. Moderate pulmonary hypertension, estimated pulmonary arterial systolic pressure is 50 mmHg. 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 * Continue Namenda and Abilify. (10) Chronic pain: Code(s): G89.29 - Other chronic pain Status: Acute Assessment and Plan: 06/14/24: * Continue Home Tramadol. (11) Restless leg syndrome: Code(s): G25.81 - Restless legs syndrome Status: Acute Assessment and Plan: 06/14/24: * Continue Requip and Ativan as home meds. (12) Transaminitis: Code(s): R74.01 - Elevation of levels of liver transaminase levels Status: Chronic Assessment and Plan: 06/14/24: * Pt asymptomatic. * Review of EMR shows chronically elevated transaminases. (13) Abnormality of gait and mobility: Code(s): R26.9 - Unspecified abnormalities of gait and mobility Status: Chronic Assessment and Plan: 06/14/24: * At baseline pt has weakness and difficulty in moving her BLE. She states she has always had difficulty since she took Chemotherapy for her Breast CA and it has left her basically W/C bound and she relies on a christopher lift. * No new focal deficits. Subjective Date/time seen: 06/15/24 11:23 Interval history: Patient lying in bed. Patient denies chest pain, palpitations, dizziness, nausea, or vomiting. Patient reports a headache that is a 7 , constant, and aching. Review of Systems Review of Systems: All systems reviewed & are unremarkable except as noted in HPI and below Exam Const: General: comfortable and no acute distress Resp: Effort & Inspection: normal respiratory effort Auscultation: rhonchi and wheezes expiratory wheezes Cardio: Rate: regular rate Rhythm: regular rhythm Other: Telemetry- SR 60. GI: GI Palp: Yes Soft to palpation Auscultation: normal bowel sounds Skin: General skin exam: no rashes or lesions noted Neuro: Speech: normal speech Extrem: General: no pedal edema Other: Decreased AROM of BLE - Pt at baseline w/ this as she is W/C bound w/christopher Psych: Affect: normal affect Objective Data Vital Signs Vital Signs: Vital Signs - 24 hr 06/14/24 12:30 06/14/24 13:40 06/14/24 13:50 Temperature Pulse Rate 83 71 72 Respiratory Rate 16 16 Blood Pressure Pulse Oximetry Oxygen Delivery Oxygen Flow Rate 06/14/24 14:00 06/14/24 16:38 06/14/24 17:24 Temperature 97.9 F Pulse Rate 78 74 81 Respiratory Rate 18 Blood Pressure 108/52 L Pulse Oximetry 95 Oxygen Delivery Oxygen Flow Rate 06/14/24 18:38 06/14/24 19:24 06/14/24 20:00 Temperature 98.7 F Pulse Rate 73 71 Respiratory Rate 20 Blood Pressure 102/60 113/59 L Pulse Oximetry 98 Oxygen Delivery Oxygen Flow Rate 06/14/24 20:41 06/14/24 20:44 06/14/24 20:49 Temperature Pulse Rate 72 72 Respiratory Rate 18 18 Blood Pressure Pulse Oximetry 96 Oxygen Delivery Nasal Cannula Oxygen Flow Rate 3 06/14/24 21:00 06/15/24 00:00 06/15/24 04:00 Temperature Pulse Rate 71 64 Respiratory Rate Blood Pressure Pulse Oximetry 96 Oxygen Delivery Nasal Cannula Oxygen Flow Rate 3 06/15/24 04:01 06/15/24 08:05 06/15/24 08:05 Temperature 97.8 F Pulse Rate 65 64 64 Respiratory Rate 20 20 20 Blood Pressure 120/63 Pulse Oximetry 95 93 Oxygen Delivery Nasal Cannula Oxygen Flow Rate 3 06/15/24 08:18 06/15/24 09:35 06/15/24 09:36 Temperature Pulse Rate 72 72 72 Respiratory Rate 20 Blood Pressure Pulse Oximetry Oxygen Delivery Oxygen Flow Rate 06/15/24 09:50 Temperature Pulse Rate Respiratory Rate Blood Pressure Pulse Oximetry 94 Oxygen Delivery Nasal Cannula Oxygen Flow Rate 3 Intake/Output Intake/Output: Intake & Output 06/12/24 06/13/24 06/14/24 06/15/24 23:59 23:59 23:59 23:59 Intake Total 1900 630 Output Total 2700 300 Balance -800 330 Meds/Results Medications: Active Medications Generic Name Dose Route Start Last Admin Trade Name Freq PRN Reason Stop Dose Admin Acetaminophen 650 mg 06/14/24 03:30 06/14/24 20:43 Acetaminophen 325 Mg Tablet PO 650 mg Q4H PRN Administration Mild Pain (1-3) or Fever Acetaminophen 650 mg 06/14/24 07:59 Acetaminophen 325 Mg Tablet BY MOUTH Q6H PRN Pain Rated 1-3 Al Hydrox/Mg Hydrox/Simethicone 5 ml 06/14/24 07:47 Mag Hydrox/Al Hydrox/Simeth 30 Ml Udc PO Q6H PRN Heartburn Albuterol 2.5 mg 06/14/24 07:46 Albuterol Sulfate Neb 2.5 Mg/3 Ml Inh INHALATION Q4HRT PRN Shortness Of Breath Albuterol/Ipratropium 3 ml 06/14/24 04:50 Ipratropium 0.5 Mg/Albuterol Sulfate 2.5 Mg Ampul.Neb 3 Ml INHALATION Q4HRT PRN shortness of breath/Wheezing Albuterol/Ipratropium 3 ml 06/14/24 08:00 06/15/24 08:04 Ipratropium 0.5 Mg/Albuterol Sulfate 2.5 Mg Ampul.Neb 3 Ml INHALATION 3 ml Q6HRT NICOLE Administration Amiodarone HCl 200 mg 06/14/24 09:00 06/15/24 09:36 Amiodarone Hcl 200 Mg Tablet PO 200 mg DAILY NICOLE Administration Apixaban 5 mg 06/14/24 09:00 06/15/24 09:36 Apixaban 5 Mg Tablet PO 5 mg Q12HR NICOLE Administration Aripiprazole 5 mg 06/14/24 09:00 06/15/24 09:35 Aripiprazole 5 Mg Tablet PO 5 mg DAILY NICOLE Administration Aripiprazole 2 mg 06/14/24 09:00 06/15/24 09:35 Aripiprazole 2 Mg Tablet PO 2 mg DAILY NICOLE Administration Buspirone HCl 10 mg 06/14/24 09:00 06/15/24 09:36 Buspirone Hcl 10 Mg Tablet PO 10 mg TID NICOLE Administration Calcium Carbonate 400 mg 06/14/24 07:47 Calcium Carbonate (Tums) 500 Mg (200 Mg Elemental) PO Q8H PRN Heartburn Cyanocobalamin 250 mcg 06/14/24 09:00 06/15/24 09:35 Cyanocobalamin 250 Mcg Tablet PO 250 mcg DAILY NICOLE Administration Dextrose 12.5 gm 06/14/24 07:48 Dextrose 50% 25 Gm/50 Ml Syringe IV PUSH PRN PRN Hypoglycemia Protocol Escitalopram Oxalate 20 mg 06/14/24 09:00 06/15/24 09:37 Escitalopram Oxalate 10 Mg Tablet PO 20 mg DAILY NICOLE Administration Ferrous Sulfate 325 mg 06/14/24 09:00 06/15/24 09:36 Ferrous Sulfate [address] BY MOUTH 325 mg DAILY NICOLE Administration Furosemide 40 mg 06/14/24 07:00 06/15/24 06:49 Furosemide Inj 40 Mg/4 Ml Vial IV PUSH 40 mg Q12H NICOLE Administration Furosemide 40 mg 06/14/24 09:00 06/14/24 09:46 Furosemide 40 Mg Tablet PO 40 mg DAILY NICOLE Administration Gabapentin 600 mg 06/14/24 09:00 06/15/24 09:35 Gabapentin 300 Mg Capsule PO 600 mg TID NICOLE Administration Glucagon 1 mg 06/14/24 07:48 Glucagon For Inj 1 Mg Vial IM PRN PRN Hypoglycemia Protocol Glucose 15 gm 06/14/24 07:48 Glucose Oral Gel 15 Gm Of Glucse In 37.5 Gm Tube PO PRN PRN Hypoglycemia Protocol Guaifenesin/Dextromethorphan 10 ml 06/14/24 04:50 Guaifenesin/Dextromethorphan 10 Ml Udc PO Q4H PRN Cough Ceftriaxone Sodium 1 gm in 50 mls @ 100 mls/hr 06/15/24 02:00 06/15/24 01:40 Rocephin 1 Gm/Ns 50 Ml IVPB 06/20/24 01:59 100 mls/hr Q24H NICOLE Administration Doxycycline Hyclate 100 mg in 100 mls @ 100 mls/hr 06/14/24 15:00 06/15/24 03:15 Vibramycin 100 Mg/Ns 100 Ml IVPB 06/20/24 14:59 Infused Q12H NICOLE Infusion Dextrose 1,000 mls @ 100 mls/hr 06/14/24 07:48 Dextrose 5% 1,000 Ml IVPB PRN PRN Hypoglycemia Protocol Insulin Aspart 2 - 5 units 06/14/24 08:00 06/15/24 09:37 Insulin Aspart (*Bkc) 100 Units/Ml SUB-Q 2 units TIDWM NICOLE Administration Protocol Insulin Aspart 1 - 2 units 06/14/24 21:00 06/14/24 21:01 Insulin Aspart (*Bkc) 100 Units/Ml SUB-Q 1 units HS NICOLE Administration Protocol Lorazepam 0.5 mg 06/14/24 21:00 06/14/24 20:42 Lorazepam (*Crx) 0.5 Mg Tablet PO 0.5 mg QHS NICOLE Administration Losartan Potassium 12.5 mg 06/14/24 09:00 06/15/24 09:35 Losartan Potassium 12.5 Mg Tablet PO 12.5 mg DAILY NICOLE Administration Magnesium Hydroxide 30 ml 06/14/24 08:03 Magnesium Hydroxide Susp 30 Ml Udc PO Q6H PRN Constipation Melatonin 5 mg 06/14/24 04:50 Melatonin 5 Mg Tablet PO HS PRN Insomnia Memantine 10 mg 06/14/24 09:00 06/15/24 09:36 Memantine 10 Mg Tablet PO 10 mg BID NICOLE Administration Methylprednisolone Sodium Succinate 40 mg 06/14/24 13:00 06/15/24 01:40 Methylprednisolone Sod Succ 40 Mg Vial IV PUSH 40 mg Q12H NICOLE Administration Metoprolol Tartrate 6.25 mg 06/14/24 09:00 06/15/24 09:35 Metoprolol Tartrate 6.25 Mg Tablet PO 6.25 mg BID NICOLE Administration Multivitamins/Calcium 1 tablet 06/14/24 09:00 06/15/24 09:36 Therapeutic Multivitamins/Minerals Tab (*Bkc) PO 1 tablet DAILY NICOLE Administration Ondansetron HCl 4 mg 06/14/24 03:30 Ondansetron Inj 4 Mg/2 Ml Vial IV PUSH Q4H PRN Nausea Pantoprazole Sodium 40 mg 06/14/24 09:00 06/15/24 09:36 Pantoprazole 40 Mg Tablet PO 40 mg QAM NICOLE Administration Perflutren Lipid Microsphere 0 ml 06/14/24 08:01 Perflutren Lipid Microspheres 1.5 Ml Vial Diluted To 10 Ml Total Volume IV PUSH 06/17/24 08:01 ONCE PRN adequate visualization Protocol Polyethylene Glycol 17 gm 06/14/24 07:47 Polyethylene Glycol 3350 17 Gm Powd.Pack PO HS PRN Constipation Primidone 50 mg 06/14/24 09:00 06/15/24 09:36 Primidone 50 Mg Tablet PO 50 mg BID NICOLE Administration Prochlorperazine Edisylate 10 mg 06/14/24 04:50 Prochlorperazine Edisylate 10 Mg/2 Ml Vial IV PUSH Q6H PRN Nausea And Vomiting Pyridoxine HCl 25 mg 06/14/24 09:00 06/15/24 09:36 Pyridoxine Hcl 25 Mg Tablet PO 25 mg DAILY NICOLE Administration Ropinirole HCl 0.5 mg 06/14/24 21:00 06/14/24 20:43 Ropinirole Hcl 0.5 Mg Tablet PO 0.5 mg QHS NICOLE Administration Senna 8.6 mg 06/14/24 09:00 06/15/24 09:36 Sennosides 8.6 Mg Tablet PO 8.6 mg BID NICOLE Administration Tamoxifen Citrate 20 mg 06/14/24 09:00 06/15/24 09:35 Tamoxifen Citrate (*Chemo) 10 Mg Tablet PO 07/14/24 08:59 20 mg DAILY NICOLE Administration Tramadol HCl 50 mg 06/14/24 09:00 06/15/24 09:36 Tramadol Hcl (*Crx) 50 Mg Tablet PO 50 mg QID NICOLE Administration Trazodone HCl 50 mg 06/14/24 21:00 06/14/24 20:43 Trazodone Hcl 50 Mg Tablet PO 50 mg QHS NICOLE Administration Vitamin D 1,000 units 06/14/24 09:00 06/15/24 09:35 Cholecalciferol 1,000 Units Tablet PO 1,000 units DAILY NICOLE Administration Radiology Results: ITS Impressions Chest X-Ray 06/14/24 05:45 Impression: Small right pleural effusion with probable right basilar atelectasis versus pneumonia. Correlate clinically. Left-sided Mediport. Chest CT 06/14/24 14:41 IMPRESSION: 1. Severe emphysema. 2. Cirrhosis of the liver. 3. Chronic small pericardial effusion. Labs Labs: Laboratory Results - last 24 hr 06/14/24 06/14/24 06/14/24 05:18 11:53 17:00 WBC RBC Hgb Hct MCV MCH MCHC RDW Plt Count MPV Immature Gran % (Auto) Neut % (Auto) Lymph % (Auto) Porter % (Auto) Eos % (Auto) Baso % (Auto) Lymph # (Auto) Porter # (Auto) Eos # (Auto) Baso # (Auto) Abs Immat Gran (auto) Absolute Neuts (auto) Absolute Nucleated RBC Nucleated RBC % Sodium Potassium Chloride Carbon Dioxide Anion Gap BUN Creatinine Estim Creat Clear Calc Estimated GFR Glucose POC Capillary Glucose 252 H 176 H Hemoglobin A1c 5.8 H Calcium Magnesium Total Bilirubin AST ALT Alkaline Phosphatase NT-Pro-B Natriuret Pep Total Protein Albumin 06/14/24 06/15/24 06/15/24 19:29 05:23 07:58 WBC 9.2 RBC 3.60 L Hgb 10.0 L Hct 33.1 L MCV 91.9 MCH 27.8 MCHC 30.2 L RDW 16.4 H Plt Count 196 MPV 11.0 H Immature Gran % (Auto) 0.3 Neut % (Auto) 88.8 H Lymph % (Auto) 8.7 L Porter % (Auto) 2.0 L Eos % (Auto) 0.0 Baso % (Auto) 0.2 Lymph # (Auto) 0.80 L Porter # (Auto) 0.2 Eos # (Auto) 0.0 Baso # (Auto) 0.0 Abs Immat Gran (auto) 0.03 Absolute Neuts (auto) 8.1 H Absolute Nucleated RBC 0.000 Nucleated RBC % 0.0 Sodium 138 Potassium 4.4 Chloride 102 Carbon Dioxide 29 Anion Gap 7 BUN 15 Creatinine 0.56 L Estim Creat Clear Calc 93 Estimated GFR > 60 Glucose 163 H POC Capillary Glucose 229 H 213 H Hemoglobin A1c Calcium 8.4 Magnesium 2.1 Total Bilirubin 0.4 AST 41 H ALT 33 Alkaline Phosphatase 84 NT-Pro-B Natriuret Pep 297 H Total Protein 7.0 Albumin 3.7 Quality VTE Prophylaxis VTE prophylaxis: mechanical ordered
[2024-06-15 11:56] LABS: Glucose Point of Care 182 mg/dl (65-105)
[2024-06-15 17:14] LABS: Glucose Point of Care 202 mg/dl (65-105)
[2024-06-15] MEDS: rOPINIRole HCL 0.5 MG TABLET PO (21:21)
[2024-06-15] MEDS: traZODone HCL 50 MG TABLET PO (21:21)
[2024-06-15] MEDS: LORazepam (*CRX) 0.5 MG TABLET PO (21:21)
[2024-06-15 21:33] LABS: Glucose Point of Care 197 mg/dl (65-105)
[2024-06-16] VITALS (17 sets, daily range): BP systolic 108–112; BP diastolic 50–64; PULSE 46–65; RESP 16–20; TEMP 36.1–36.6; O2SAT 95–100
[2024-06-16] MEDS: methylPREDNISolone SOD SUCC 40 MG VIAL IV PUSH ×2 (01:34→12:38)
[2024-06-16] MEDS: IPRATROPIUM 0.5 MG/ALBUTEROL SULFATE 2.5 MG AMPUL.NEB 3 ML INHALATION ×3 (01:58→20:16)
[2024-06-16] MEDS: DOXYCYCLINE 100 MG/NS 100 ML 100 MG/100 ML BAG IVPB ×2 (02:28→14:14)
[2024-06-16 05:56] LABS: Basophils Percent Auto 0.1 % (0.2-1.2); Hematocrit 35.4 % (37.0-47.0); Hemoglobin 10.4 g/dL (12.0-15.0); Immature Granulocyte Absolute 0.03 K/mm3 (0.00-0.031); Immature Granulocyte Percent A 0.4 % (0-0.5); Lymphocytes Absolute Auto 0.74 K/mm3 (0.9-3.2); Lymphocytes Percent Auto 8.9 % (18.3-44.2); Mean Corpuscular HGB Conc 29.4 g/dl (32-36); Mean Corpuscular Hemoglobin 27.2 pg (26-34); Mean Corpuscular Volume 92.7 fl (80-100); Mean Platelet Volume 11.1 fl (7.4-10.4); Monocytes Absolute Auto 0.2 K/mm3 (0.1-0.6); Monocytes Percent Auto 2.8 % (2.6-8.5); Neutrophils Absolute Auto 7.3 K/mm3 (1.3-6.7); Neutrophils Percent Auto 87.8 % (45.5-73.1); Platelet Count Result 206 k/mm3 (150-375); Red Blood Count 3.82 M/mm3 (4.2-5.4); Red Cell Distribution Width 16.5 % (11.5-14.5); White Blood Count 8.3 K/mm3 (4.5-10.0)
[2024-06-16 06:20] LABS: Alanine Aminotransferase 30 U/L (6-35); Albumin Level 3.6 g/dL (3.5-5.1); Alkaline Phosphatase 76 U/L (38-126); Anion Gap 8 mmol/L (4-12); Aspartate Amino Transferase 41 U/L (14-36); Bilirubin,Total 0.4 mg/dL (0.2-1.3); Blood Urea Nitrogen 22 mg/dL (7-17); Calcium 8.6 mg/dL (8.4-10.2); Carbon Dioxide 30 mmol/L (22-30); Chloride 102 mmol/L (98-107); Estimated CRCL calculation 92 ml/min; Estimated Glomerular Filt Rate > 60; Glucose 150 mg/dL (65-110); Magnesium 2.2 mg/dL (1.6-2.3); Potassium 4.5 mmol/L (3.4-5.0); Sodium 140 mmol/L (137-145)
[2024-06-16 07:14] LABS: Hypochromasia 1+; Platelet Estimate Adequate (Adequate)
[2024-06-16 07:15] LABS: Anisocytosis 1+; Schistocytes None Seen
[2024-06-16 08:14] LABS: Glucose Point of Care 171 mg/dl (65-105)
[2024-06-16] MEDS: AMIODARONE HCL 200 MG TABLET PO (08:23)
[2024-06-16] MEDS: ARIPiprazole 5 MG TABLET PO (08:24)
[2024-06-16] MEDS: LOSARTAN POTASSIUM 12.5 MG TABLET PO (08:24)
[2024-06-16] MEDS: PYRIDOXINE HCL 25 MG TABLET PO (08:24)
[2024-06-16] MEDS: METOPROLOL TARTRATE 6.25 MG TABLET PO (08:24)
[2024-06-16] MEDS: FERROUS SULFATE 325 MG TABLET DR BY MOUTH (08:24)
[2024-06-16] MEDS: TAMOXIFEN CITRATE (*CHEMO) 10 MG TABLET 20 MG PO (08:24)
[2024-06-16] MEDS: busPIRone HCL 10 MG TABLET PO ×3 (08:24→16:37)
[2024-06-16] MEDS: CHOLECALCIFEROL 1,000 UNITS TABLET 1000 UNITS PO (08:24)
[2024-06-16] MEDS: traMADol HCL (*CRX) 50 MG TABLET PO ×4 (08:24→21:05)
[2024-06-16] MEDS: GABAPENTIN 300 MG CAPSULE 600 MG PO ×3 (08:24→16:37)
[2024-06-16] MEDS: PRIMIDONE 50 MG TABLET PO ×2 (08:25→16:38)
[2024-06-16] MEDS: ESCITALOPRAM OXALATE 10 MG TABLET 20 MG PO (08:25)
[2024-06-16] MEDS: THERAPEUTIC MULTIVITAMINS/MINERALS TAB (*BKC) 1 TABLET PO (08:25)
[2024-06-16] MEDS: PANTOPRAZOLE 40 MG TABLET PO (08:25)
[2024-06-16] MEDS: SENNOSIDES 8.6 MG TABLET PO ×2 (08:25→16:38)
[2024-06-16] MEDS: ARIPiprazole 2 MG TABLET PO (08:25)
[2024-06-16] MEDS: APIXABAN 5 MG TABLET PO ×2 (08:25→21:05)
[2024-06-16] MEDS: CYANOCOBALAMIN 250 MCG TABLET PO (08:26)
[2024-06-16] MEDS: MEMANTINE 10 MG TABLET PO ×2 (08:26→16:37)
--- NOTE | 2024-06-16 10:14 | P.PNIM_ITS ---
Progress Note: A&P Assessment and Plan (1) Shortness of breath: Code(s): R06.02 - Shortness of breath Status: Acute Assessment and Plan: 06/14/24: * Etiology PNA vs. Atelectasis vs. Right Pleural Effusion vs. COPD exacerbation * Telemetry * Continue to monitor and trend VS and labs. * CXR was reviewed independently by myself. Will obtain CT chest to further delineate among atelectasis vs. PNA vs other etiologies. * Interim continuation of Duonebs Q6, prn Albuterol Q4 hrs, Rocephin and Doxy, Solumedrol and Furosemide. * Once results of CT available, de-escalate meds for treatment and supportive care as appropriate. * Continue NC at 4L for oxygen supplementation support. * Incentive Spirometer 06/15/24: * Interim continuation of Duonebs Q6, prn Albuterol Q4 hrs, Rocephin and Doxy, Solumedrol and Furosemide. * Chest CT- IMPRESSION: 1. Severe emphysema. 2. Cirrhosis of the liver. 3. Chronic small pericardial effusion. * 02@3LNC with Sa02 96%. * Incentive spirometer. 06/16/24: * Interim continuation of Duonebs Q6, prn Albuterol Q4 hrs, Rocephin and Doxy, Solumedrol and Furosemide. * 02@3LNC with Sa02 95%. * Incentive spirometer. (2) Pneumonia: Code(s): J18.9 - Pneumonia, unspecified organism Status: Acute Assessment and Plan: 06/14/24: * Obtain CT to further determine if this is the causative etiology of Dyspnea. * Continue Doxy and Rocephin for now. * Continue Duonebs and Albuterol. 06/15/24: * Interim continuation of Duonebs Q6, prn Albuterol Q4 hrs, Rocephin and Doxy, Solumedrol and Furosemide. * Chest CT- IMPRESSION: 1. Severe emphysema. 2. Cirrhosis of the liver. 3. Chronic small pericardial effusion. * 02@3LNC with Sa02 95%. * Incentive spirometer. 06/16/24: * Interim continuation of Duonebs Q6, prn Albuterol Q4 hrs, Rocephin and Doxy, Solumedrol and Furosemide. * 02@3LNC with Sa02 95%. * Incentive spirometer. (3) Chronic hypoxic respiratory failure, on home oxygen therapy: Code(s): J96.11 - Chronic respiratory failure with hypoxia; Z99.81 - Dependence on supplemental oxygen Status: Chronic Assessment and Plan: 06/14/24: * Chronic 3L supplemental oxygen at home. * Monitor oxygenation. 06/15/24: * 02@3LNC with Sa02 96%. 06/16/24: * 02@3LNC with Sa02 95%. (4) Acute and chronic respiratory failure with hypoxia: Code(s): J96.21 - Acute and chronic respiratory failure with hypoxia Status: Acute Assessment and Plan: 06/14/24: * See Above. (5) CHF (congestive heart failure): Code(s): I50.9 - Heart failure, unspecified Status: Acute Assessment and Plan: 06/14/24: * Last ECHO 12/2023 w/EF of 35%, [place] Cardiomyopathy pattern, and Grade 1 Diastolic Dysfunction * Obtain new ECHO given possible exacerbation of CHF. * Continue Lasix 40 mg BID IVP for now based on findings of CXR. * Obtain CT Chest with contrast. 06/15/24: * Echocardiogram 06/14/24: Summary 1. Definity contrast administered improved wall motion interpretation. 2. Left ventricular chamber dimension is normal. 3. Left ventricular systolic function is normal, estimated at 65-70%. 4. There is moderate concentric increased left ventricular wall thickness. 5. The left ventricular diastolic function is abnormal. 6. E/e' 12 is mildly elevated. 7. The aortic valve is not well visualized. Cannot determine number of aortic valve leaflets. 8. There is moderate aortic valve sclerosis. 9. There is moderate aortic valve stenosis with a peak velocity of 302 cm/s, mean gradient of 17 mmHg, and aortic valve area of 1.2 cm2. 10. Moderate pulmonary hypertension, estimated pulmonary arterial systolic pressure is 50 mmHg. 06/16/24: * Lasix 40 mg PO daily. (6) Atrial fibrillation: Code(s): I48.91 - Unspecified atrial fibrillation Status: Chronic Assessment and Plan: 06/14/24: * Continue Amiodarone * Continue rate control with Metoprolol * Continue Eliquis * Telemetry 06/15/24: * Continue Amiodarone * Continue rate control with Metoprolol * Continue Eliquis * Telemetry 06/16/24: * Continue Amiodarone * Continue rate control with Metoprolol * Continue Eliquis * Telemetry (7) Chronic anticoagulation: Code(s): Z79.01 - retirement (current) use of anticoagulants Status: Chronic Assessment and Plan: 06/14/24: * Continue Eliquis 06/15/24: * Continue Eliquis 06/16/24: * Continue Eliquis (8) Diabetes: Qualifiers: Diabetes mellitus type: type 2 Diabetes mellitus mcc insulin use: without mcc use Diabetes mellitus complication status: without complication Qualified Code(s): E11.9 - Type 2 diabetes mellitus without complications Code(s): E11.9 - Type 2 diabetes mellitus without complications Status: Acute Assessment and Plan: 06/14/24: * SSI * Hypoglycemic protocol * Heart Healthy diet * Check A1C 06/15/24: * HgbA1C 5.8% 06/16/24: * SSI * Hypoglycemic protocol * Heart Healthy diet (9) Hallucinations: Code(s): R44.3 - Hallucinations, unspecified Status: Acute Assessment and Plan: 06/14/24: * Suspect degree of dementia associated with. * Continue Namenda and Abilify. (10) Chronic pain: Code(s): G89.29 - Other chronic pain Status: Acute Assessment and Plan: 06/14/24: * Continue Home Tramadol. (11) Restless leg syndrome: Code(s): G25.81 - Restless legs syndrome Status: Acute Assessment and Plan: 06/14/24: * Continue Requip and Ativan as home meds. (12) Transaminitis: Code(s): R74.01 - Elevation of levels of liver transaminase levels Status: Chronic Assessment and Plan: 06/14/24: * Pt asymptomatic. * Review of EMR shows chronically elevated transaminases. (13) Abnormality of gait and mobility: Code(s): R26.9 - Unspecified abnormalities of gait and mobility Status: Chronic Assessment and Plan: 06/14/24: * At baseline pt has weakness and difficulty in moving her BLE. She states she has always had difficulty since she took Chemotherapy for her Breast CA and it has left her basically W/C bound and she relies on a christopher lift. * No new focal deficits. Subjective Date/time seen: 06/16/24 10:14 Interval history: Patient lying in bed. Patient denies chest pain, palpitations, dizziness, nausea, or vomiting. Patient asking for Lasix dose. Review of Systems Review of Systems: All systems reviewed & are unremarkable except as noted in HPI and below Exam Const: General: comfortable and no acute distress Resp: Effort & Inspection: normal respiratory effort Auscultation: rhonchi and wheezes expiratory wheezes Cardio: Rate: regular rate Rhythm: regular rhythm Other: Telemetry- SR 63 GI: GI Palp: Yes Soft to palpation Auscultation: normal bowel sounds Skin: General skin exam: no rashes or lesions noted Neuro: Speech: normal speech Extrem: General: pedal edema bilaterally (Trace) Psych: Affect: normal affect Objective Data Vital Signs Vital Signs: Vital Signs - 24 hr 06/15/24 12:00 06/15/24 13:41 06/15/24 13:54 Temperature Pulse Rate 58 L 76 77 Respiratory Rate 20 20 Blood Pressure Pulse Oximetry Oxygen Delivery Oxygen Flow Rate 06/15/24 14:00 06/15/24 16:00 06/15/24 17:21 Temperature 96.5 F L Pulse Rate 64 60 64 Respiratory Rate 18 Blood Pressure 124/87 Pulse Oximetry 96 Oxygen Delivery Oxygen Flow Rate 06/15/24 19:19 06/15/24 20:00 06/15/24 20:00 Temperature Pulse Rate 62 Respiratory Rate Blood Pressure 106/48 L Pulse Oximetry 96 Oxygen Delivery Nasal Cannula Oxygen Flow Rate 3 06/15/24 20:16 06/15/24 20:16 06/15/24 20:25 Temperature Pulse Rate 58 L 58 L 64 Respiratory Rate 20 20 20 Blood Pressure Pulse Oximetry 97 Oxygen Delivery Nasal Cannula Oxygen Flow Rate 3 06/15/24 21:12 06/16/24 00:00 06/16/24 01:58 Temperature 97.8 F Pulse Rate 82 49 L 54 L Respiratory Rate 20 16 Blood Pressure 105/62 Pulse Oximetry 91 Oxygen Delivery Oxygen Flow Rate 06/16/24 02:10 06/16/24 04:00 06/16/24 05:41 Temperature 97 F L Pulse Rate 48 L 52 L 54 L Respiratory Rate 16 20 Blood Pressure 109/50 L Pulse Oximetry 99 Oxygen Delivery Oxygen Flow Rate 06/16/24 08:00 06/16/24 08:23 06/16/24 08:24 Temperature Pulse Rate 54 L 65 65 Respiratory Rate Blood Pressure Pulse Oximetry Oxygen Delivery Oxygen Flow Rate Intake/Output Intake/Output: Intake & Output 06/13/24 06/14/24 06/15/24 06/16/24 23:59 23:59 23:59 23:59 Intake Total 1900 1260 270 Output Total 2700 1900 Balance -800 -640 270 Meds/Results Medications: Active Medications Generic Name Dose Route Start Last Admin Trade Name Freq PRN Reason Stop Dose Admin Acetaminophen 650 mg 06/14/24 03:30 06/14/24 20:43 Acetaminophen 325 Mg Tablet PO 650 mg Q4H PRN Administration Mild Pain (1-3) or Fever Acetaminophen 650 mg 06/14/24 07:59 Acetaminophen 325 Mg Tablet BY MOUTH Q6H PRN Pain Rated 1-3 Al Hydrox/Mg Hydrox/Simethicone 5 ml 06/14/24 07:47 Mag Hydrox/Al Hydrox/Simeth 30 Ml Udc PO Q6H PRN Heartburn Albuterol 2.5 mg 06/14/24 07:46 Albuterol Sulfate Neb 2.5 Mg/3 Ml Inh INHALATION Q4HRT PRN Shortness Of Breath Albuterol/Ipratropium 3 ml 06/14/24 04:50 Ipratropium 0.5 Mg/Albuterol Sulfate 2.5 Mg Ampul.Neb 3 Ml INHALATION Q4HRT PRN shortness of breath/Wheezing Albuterol/Ipratropium 3 ml 06/14/24 08:00 06/16/24 07:34 Ipratropium 0.5 Mg/Albuterol Sulfate 2.5 Mg Ampul.Neb 3 Ml INHALATION Not Given Q6HRT NICOLE Amiodarone HCl 200 mg 06/14/24 09:00 06/16/24 08:23 Amiodarone Hcl 200 Mg Tablet PO 200 mg DAILY NICOLE Administration Apixaban 5 mg 06/14/24 09:00 06/16/24 08:25 Apixaban 5 Mg Tablet PO 5 mg Q12HR NICOLE Administration Aripiprazole 5 mg 06/14/24 09:00 06/16/24 08:24 Aripiprazole 5 Mg Tablet PO 5 mg DAILY NICOLE Administration Aripiprazole 2 mg 06/14/24 09:00 06/16/24 08:25 Aripiprazole 2 Mg Tablet PO 2 mg DAILY NICOLE Administration Buspirone HCl 10 mg 06/14/24 09:00 06/16/24 08:24 Buspirone Hcl 10 Mg Tablet PO 10 mg TID NICOLE Administration Calcium Carbonate 400 mg 06/14/24 07:47 Calcium Carbonate (Tums) 500 Mg (200 Mg Elemental) PO Q8H PRN Heartburn Cyanocobalamin 250 mcg 06/14/24 09:00 06/16/24 08:26 Cyanocobalamin 250 Mcg Tablet PO 250 mcg DAILY NICOLE Administration Dextrose 12.5 gm 06/14/24 07:48 Dextrose 50% 25 Gm/50 Ml Syringe IV PUSH PRN PRN Hypoglycemia Protocol Escitalopram Oxalate 20 mg 06/14/24 09:00 06/16/24 08:25 Escitalopram Oxalate 10 Mg Tablet PO 20 mg DAILY NICOLE Administration Ferrous Sulfate 325 mg 06/14/24 09:00 06/16/24 08:24 Ferrous Sulfate [address] BY MOUTH 325 mg DAILY NICOLE Administration Furosemide 40 mg 06/14/24 09:00 06/14/24 09:46 Furosemide 40 Mg Tablet PO 40 mg DAILY NICOLE Administration Gabapentin 600 mg 06/14/24 09:00 06/16/24 08:24 Gabapentin 300 Mg Capsule PO 600 mg TID NICOLE Administration Glucagon 1 mg 06/14/24 07:48 Glucagon For Inj 1 Mg Vial IM PRN PRN Hypoglycemia Protocol Glucose 15 gm 06/14/24 07:48 Glucose Oral Gel 15 Gm Of Glucse In 37.5 Gm Tube PO PRN PRN Hypoglycemia Protocol Guaifenesin/Dextromethorphan 10 ml 06/14/24 04:50 Guaifenesin/Dextromethorphan 10 Ml Udc PO Q4H PRN Cough Ceftriaxone Sodium 1 gm in 50 mls @ 100 mls/hr 06/15/24 02:00 06/16/24 02:04 Rocephin 1 Gm/Ns 50 Ml IVPB 06/20/24 01:59 Infused Q24H NICOLE Infusion Doxycycline Hyclate 100 mg in 100 mls @ 100 mls/hr 06/14/24 15:00 06/16/24 03:30 Vibramycin 100 Mg/Ns 100 Ml IVPB 06/20/24 14:59 Infused Q12H NICOLE Infusion Dextrose 1,000 mls @ 100 mls/hr 06/14/24 07:48 Dextrose 5% 1,000 Ml IVPB PRN PRN Hypoglycemia Protocol Insulin Aspart 2 - 5 units 06/14/24 08:00 06/16/24 08:21 Insulin Aspart (*Bkc) 100 Units/Ml SUB-Q Not Given TIDWM NICOLE Protocol Insulin Aspart 1 - 2 units 06/14/24 21:00 06/15/24 21:22 Insulin Aspart (*Bkc) 100 Units/Ml SUB-Q Not Given HS NICOLE Protocol Lorazepam 0.5 mg 06/14/24 21:00 06/15/24 21:21 Lorazepam (*Crx) 0.5 Mg Tablet PO 0.5 mg QHS NICOLE Administration Losartan Potassium 12.5 mg 06/14/24 09:00 06/16/24 08:24 Losartan Potassium 12.5 Mg Tablet PO 12.5 mg DAILY NICOLE Administration Magnesium Hydroxide 30 ml 06/14/24 08:03 Magnesium Hydroxide Susp 30 Ml Udc PO Q6H PRN Constipation Melatonin 5 mg 06/14/24 04:50 Melatonin 5 Mg Tablet PO HS PRN Insomnia Memantine 10 mg 06/14/24 09:00 06/16/24 08:26 Memantine 10 Mg Tablet PO 10 mg BID NICOLE Administration Methylprednisolone Sodium Succinate 40 mg 06/14/24 13:00 06/16/24 01:34 Methylprednisolone Sod Succ 40 Mg Vial IV PUSH 40 mg Q12H NICOLE Administration Metoprolol Tartrate 6.25 mg 06/14/24 09:00 06/16/24 08:24 Metoprolol Tartrate 6.25 Mg Tablet PO 6.25 mg BID NICOLE Administration Multivitamins/Calcium 1 tablet 06/14/24 09:00 06/16/24 08:25 Therapeutic Multivitamins/Minerals Tab (*Bkc) PO 1 tablet DAILY NICOLE Administration Ondansetron HCl 4 mg 06/14/24 03:30 Ondansetron Inj 4 Mg/2 Ml Vial IV PUSH Q4H PRN Nausea Pantoprazole Sodium 40 mg 06/14/24 09:00 06/16/24 08:25 Pantoprazole 40 Mg Tablet PO 40 mg QAM NICOLE Administration Perflutren Lipid Microsphere 0 ml 06/14/24 08:01 Perflutren Lipid Microspheres 1.5 Ml Vial Diluted To 10 Ml Total Volume IV PUSH 06/17/24 08:01 ONCE PRN adequate visualization Protocol Polyethylene Glycol 17 gm 06/14/24 07:47 Polyethylene Glycol 3350 17 Gm Powd.Pack PO HS PRN Constipation Primidone 50 mg 06/14/24 09:00 06/16/24 08:25 Primidone 50 Mg Tablet PO 50 mg BID NICOLE Administration Prochlorperazine Edisylate 10 mg 06/14/24 04:50 Prochlorperazine Edisylate 10 Mg/2 Ml Vial IV PUSH Q6H PRN Nausea And Vomiting Pyridoxine HCl 25 mg 06/14/24 09:00 06/16/24 08:24 Pyridoxine Hcl 25 Mg Tablet PO 25 mg DAILY NICOLE Administration Ropinirole HCl 0.5 mg 06/14/24 21:00 06/15/24 21:21 Ropinirole Hcl 0.5 Mg Tablet PO 0.5 mg QHS NICOLE Administration Senna 8.6 mg 06/14/24 09:00 06/16/24 08:25 Sennosides 8.6 Mg Tablet PO 8.6 mg BID NICOLE Administration Tamoxifen Citrate 20 mg 06/14/24 09:00 06/16/24 08:24 Tamoxifen Citrate (*Chemo) 10 Mg Tablet PO 07/14/24 08:59 20 mg DAILY NICOLE Administration Tramadol HCl 50 mg 06/14/24 09:00 06/16/24 08:24 Tramadol Hcl (*Crx) 50 Mg Tablet PO 50 mg QID NICOLE Administration Trazodone HCl 50 mg 06/14/24 21:00 06/15/24 21:21 Trazodone Hcl 50 Mg Tablet PO 50 mg QHS NICOLE Administration Vitamin D 1,000 units 06/14/24 09:00 06/16/24 08:24 Cholecalciferol 1,000 Units Tablet PO 1,000 units DAILY NICOLE Administration Radiology Results: ITS Impressions Chest X-Ray 06/14/24 05:45 Impression: Small right pleural effusion with probable right basilar atelectasis versus pneumonia. Correlate clinically. Left-sided Mediport. Chest CT 06/14/24 14:41 IMPRESSION: 1. Severe emphysema. 2. Cirrhosis of the liver. 3. Chronic small pericardial effusion. Labs Labs: Laboratory Results - last 24 hr 06/15/24 06/15/24 06/15/24 11:49 16:56 21:16 WBC RBC Hgb Hct MCV MCH MCHC RDW Plt Count MPV Immature Gran % (Auto) Neut % (Auto) Lymph % (Auto) [place] % (Auto) Eos % (Auto) Baso % (Auto) Lymph # (Auto) [place] # (Auto) Eos # (Auto) Baso # (Auto) Abs Immat Gran (auto) Absolute Neuts (auto) Absolute Nucleated RBC Band Neutrophils % Nucleated RBC % Platelet Estimate Hypochromasia Anisocytosis Schistocytes Sodium Potassium Chloride Carbon Dioxide Anion Gap BUN Creatinine Estim Creat Clear Calc Estimated GFR Glucose POC Capillary Glucose 182 H 202 H 197 H Calcium Magnesium Total Bilirubin AST ALT Alkaline Phosphatase Total Protein Albumin 06/16/24 06/16/24 05:15 08:10 WBC 8.3 RBC 3.82 L Hgb 10.4 L Hct 35.4 L MCV 92.7 MCH 27.2 MCHC 29.4 L RDW 16.5 H Plt Count 206 MPV 11.1 H Immature Gran % (Auto) 0.4 Neut % (Auto) 87.8 H Lymph % (Auto) 8.9 L [place] % (Auto) 2.8 Eos % (Auto) 0.0 Baso % (Auto) 0.1 L Lymph # (Auto) 0.74 L [place] # (Auto) 0.2 Eos # (Auto) 0.0 Baso # (Auto) 0.0 Abs Immat Gran (auto) 0.03 Absolute Neuts (auto) 7.3 H Absolute Nucleated RBC 0.000 Band Neutrophils % Not Reportable Nucleated RBC % 0.0 Platelet Estimate Adequate Hypochromasia 1+ Anisocytosis 1+ Schistocytes None seen Sodium 140 Potassium 4.5 Chloride 102 Carbon Dioxide 30 Anion Gap 8 BUN 22 H Creatinine 0.53 L Estim Creat Clear Calc 92 Estimated GFR > 60 Glucose 150 H POC Capillary Glucose 171 H Calcium 8.6 Magnesium 2.2 Total Bilirubin 0.4 AST 41 H ALT 30 Alkaline Phosphatase 76 Total Protein 7.0 Albumin 3.6 Quality VTE Prophylaxis VTE prophylaxis: mechanical ordered
[2024-06-16] MEDS: FUROSEMIDE 40 MG TABLET PO (11:02)
[2024-06-16 12:05] LABS: Glucose Point of Care 170 mg/dl (65-105)
[2024-06-16] MEDS: ACETAMINOPHEN 325 MG TABLET 650 MG PO (13:26)
[2024-06-16 17:18] LABS: Glucose Point of Care 266 mg/dl (65-105)
[2024-06-16] MEDS: INSULIN ASPART (*BKC) 100 UNITS/ML SUB-Q (17:54)
[2024-06-16] MEDS: rOPINIRole HCL 0.5 MG TABLET PO (21:05)
[2024-06-16] MEDS: LORazepam (*CRX) 0.5 MG TABLET PO (21:05)
[2024-06-16] MEDS: traZODone HCL 50 MG TABLET PO (21:06)
[2024-06-17] VITALS (20 sets, daily range): BP systolic 89–120; BP diastolic 57–64; PULSE 40–98; RESP 15–22; TEMP 36.2–36.6; O2SAT 46–100
[2024-06-17 00:52] LABS: Glucose Point of Care 183 mg/dl (65-105)
[2024-06-17] MEDS: methylPREDNISolone SOD SUCC 40 MG VIAL IV PUSH ×2 (01:13→12:36)
[2024-06-17] MEDS: DOXYCYCLINE 100 MG/NS 100 ML 100 MG/100 ML BAG IVPB ×2 (02:45→14:26)
[2024-06-17] MEDS: IPRATROPIUM 0.5 MG/ALBUTEROL SULFATE 2.5 MG AMPUL.NEB 3 ML INHALATION ×2 (03:33→08:34)
[2024-06-17 05:24] LABS: Basophils Percent Auto 0.1 % (0.2-1.2); Hematocrit 37.1 % (37.0-47.0); Hemoglobin 11.1 g/dL (12.0-15.0); Immature Granulocyte Absolute 0.05 K/mm3 (0.00-0.031); Immature Granulocyte Percent A 0.5 % (0-0.5); Lymphocytes Absolute Auto 0.78 K/mm3 (0.9-3.2); Mean Corpuscular HGB Conc 29.9 g/dl (32-36); Mean Corpuscular Hemoglobin 27.9 pg (26-34); Mean Corpuscular Volume 93.2 fl (80-100); Mean Platelet Volume 11.2 fl (7.4-10.4); Monocytes Absolute Auto 0.3 K/mm3 (0.1-0.6); Monocytes Percent Auto 2.5 % (2.6-8.5); Neutrophils Percent Auto 89.9 % (45.5-73.1); Platelet Count Result 228 k/mm3 (150-375); Red Blood Count 3.98 M/mm3 (4.2-5.4); Red Cell Distribution Width 16.2 % (11.5-14.5); White Blood Count 11.1 K/mm3 (4.5-10.0)
[2024-06-17 05:39] LABS: Alanine Aminotransferase 36 U/L (6-35); Albumin Level 3.7 g/dL (3.5-5.1); Alkaline Phosphatase 77 U/L (38-126); Anion Gap 10 mmol/L (4-12); Aspartate Amino Transferase 54 U/L (14-36); Bilirubin,Total 0.4 mg/dL (0.2-1.3); Blood Urea Nitrogen 29 mg/dL (7-17); Calcium 8.9 mg/dL (8.4-10.2); Carbon Dioxide 28 mmol/L (22-30); Chloride 99 mmol/L (98-107); Estimated CRCL calculation 74 ml/min; Estimated Glomerular Filt Rate > 60; Glucose 172 mg/dL (65-110); Magnesium 2.2 mg/dL (1.6-2.3); Potassium 5.2 mmol/L (3.4-5.0); Sodium 137 mmol/L (137-145)
[2024-06-17 05:55] LABS: Band Neutrophils Percent 0 % (0-6); Platelet Estimate Adequate (Adequate)
[2024-06-17 05:56] LABS: Anisocytosis 1+; Hypochromasia 1+; Schistocytes None Seen
[2024-06-17 08:21] LABS: Glucose Point of Care 294 mg/dl (65-105)
[2024-06-17] MEDS: PYRIDOXINE HCL 25 MG TABLET PO (08:37)
[2024-06-17] MEDS: TAMOXIFEN CITRATE (*CHEMO) 10 MG TABLET 20 MG PO (08:37)
[2024-06-17] MEDS: CYANOCOBALAMIN 250 MCG TABLET PO (08:37)
[2024-06-17] MEDS: ESCITALOPRAM OXALATE 10 MG TABLET 20 MG PO (08:37)
[2024-06-17] MEDS: LOSARTAN POTASSIUM 12.5 MG TABLET PO (08:37)
[2024-06-17] MEDS: ARIPiprazole 5 MG TABLET PO (08:38)
[2024-06-17] MEDS: MEMANTINE 10 MG TABLET PO ×2 (08:38→16:03)
[2024-06-17] MEDS: PANTOPRAZOLE 40 MG TABLET PO (08:38)
[2024-06-17] MEDS: busPIRone HCL 10 MG TABLET PO ×3 (08:38→16:03)
[2024-06-17] MEDS: GABAPENTIN 300 MG CAPSULE 600 MG PO ×3 (08:38→16:03)
[2024-06-17] MEDS: FERROUS SULFATE 325 MG TABLET DR BY MOUTH (08:38)
[2024-06-17] MEDS: PRIMIDONE 50 MG TABLET PO ×2 (08:38→16:03)
[2024-06-17] MEDS: APIXABAN 5 MG TABLET PO ×2 (08:38→20:29)
[2024-06-17] MEDS: CHOLECALCIFEROL 1,000 UNITS TABLET 1000 UNITS PO (08:38)
[2024-06-17] MEDS: THERAPEUTIC MULTIVITAMINS/MINERALS TAB (*BKC) 1 TABLET PO (08:38)
[2024-06-17] MEDS: FUROSEMIDE 40 MG TABLET PO (08:38)
[2024-06-17] MEDS: traMADol HCL (*CRX) 50 MG TABLET PO ×4 (08:38→20:29)
[2024-06-17] MEDS: ARIPiprazole 2 MG TABLET PO (08:39)
[2024-06-17] MEDS: SENNOSIDES 8.6 MG TABLET PO ×2 (08:39→16:03)
[2024-06-17] MEDS: INSULIN ASPART (*BKC) 100 UNITS/ML SUB-Q ×3 (08:52→17:33)
--- NOTE | 2024-06-17 10:41 | P.PNIM_ITS ---
Progress Note: A&P Assessment and Plan (1) Shortness of breath: Code(s): R06.02 - Shortness of breath Status: Acute Assessment and Plan: 06/14/24: * Etiology PNA vs. Atelectasis vs. Right Pleural Effusion vs. COPD exacerbation * Telemetry * Continue to monitor and trend VS and labs. * CXR was reviewed independently by myself. Will obtain CT chest to further delineate among atelectasis vs. PNA vs other etiologies. * Interim continuation of Duonebs Q6, prn Albuterol Q4 hrs, Rocephin and Doxy, Solumedrol and Furosemide. * Once results of CT available, de-escalate meds for treatment and supportive care as appropriate. * Continue NC at 4L for oxygen supplementation support. * Incentive Spirometer 06/15/24: * Interim continuation of Duonebs Q6, prn Albuterol Q4 hrs, Rocephin and Doxy, Solumedrol and Furosemide. * Chest CT- IMPRESSION: 1. Severe emphysema. 2. Cirrhosis of the liver. 3. Chronic small pericardial effusion. * 02@3LNC with Sa02 96%. * Incentive spirometer. 06/16/24: * Interim continuation of Duonebs Q6, prn Albuterol Q4 hrs, Rocephin and Doxy, Solumedrol and Furosemide. * 02@3LNC with Sa02 95%. * Incentive spirometer. 06/17/24: * Interim continuation of prn Albuterol Q4 hrs, Rocephin and Doxy, Solumedrol and Furosemide. Change duoneb to Levalbuterol neb q 6. * 02@3LNC with Sa02 94%. * Incentive spirometer. (2) Pneumonia: Code(s): J18.9 - Pneumonia, unspecified organism Status: Acute Assessment and Plan: 06/14/24: * Obtain CT to further determine if this is the causative etiology of Dyspnea. * Continue Doxy and Rocephin for now. * Continue Duonebs and Albuterol. 06/15/24: * Interim continuation of Duonebs Q6, prn Albuterol Q4 hrs, Rocephin and Doxy, Solumedrol and Furosemide. * Chest CT- IMPRESSION: 1. Severe emphysema. 2. Cirrhosis of the liver. 3. Chronic small pericardial effusion. * 02@3LNC with Sa02 95%. * Incentive spirometer. 06/16/24: * Interim continuation of Duonebs Q6, prn Albuterol Q4 hrs, Rocephin and Doxy, Solumedrol and Furosemide. * 02@3LNC with Sa02 95%. * Incentive spirometer. (3) Chronic hypoxic respiratory failure, on home oxygen therapy: Code(s): J96.11 - Chronic respiratory failure with hypoxia; Z99.81 - Dependence on supplemental oxygen Status: Chronic Assessment and Plan: 06/14/24: * Chronic 3L supplemental oxygen at home. * Monitor oxygenation. 06/15/24: * 02@3LNC with Sa02 96%. 06/16/24: * 02@3LNC with Sa02 95%. 06/17/24: * 02@3LNC with Sa02 95%. (4) Acute and chronic respiratory failure with hypoxia: Code(s): J96.21 - Acute and chronic respiratory failure with hypoxia Status: Acute Assessment and Plan: 06/14/24: * See Above. (5) CHF (congestive heart failure): Code(s): I50.9 - Heart failure, unspecified Status: Acute Assessment and Plan: 06/14/24: * Last ECHO 12/2023 w/EF of 35%, [place] Cardiomyopathy pattern, and Grade 1 Diastolic Dysfunction * Obtain new ECHO given possible exacerbation of CHF. * Continue Lasix 40 mg BID IVP for now based on findings of CXR. * Obtain CT Chest with contrast. 06/15/24: * Echocardiogram 06/14/24: Summary 1. Definity contrast administered improved wall motion interpretation. 2. Left ventricular chamber dimension is normal. 3. Left ventricular systolic function is normal, estimated at 65-70%. 4. There is moderate concentric increased left ventricular wall thickness. 5. The left ventricular diastolic function is abnormal. 6. E/e' 12 is mildly elevated. 7. The aortic valve is not well visualized. Cannot determine number of aortic valve leaflets. 8. There is moderate aortic valve sclerosis. 9. There is moderate aortic valve stenosis with a peak velocity of 302 cm/s, mean gradient of 17 mmHg, and aortic valve area of 1.2 cm2. 10. Moderate pulmonary hypertension, estimated pulmonary arterial systolic pressure is 50 mmHg. 2/27/25: * Lasix 40 mg PO daily. 06/17/24: * Lasix 40 mg PO daily. (6) Atrial fibrillation: Code(s): I48.91 - Unspecified atrial fibrillation Status: Chronic Assessment and Plan: 06/14/24: * Continue Amiodarone * Continue rate control with Metoprolol * Continue Eliquis * Telemetry 06/15/24: * Continue Amiodarone * Continue rate control with Metoprolol * Continue Eliquis * Telemetry 06/16/24: * Continue Amiodarone * Continue rate control with Metoprolol * Continue Eliquis * Telemetry 06/17/24: * Held Amiodarone and Metoprolol this morning due to heart rate of 40. 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 use: without fdc use Diabetes mellitus complication status: without complication Qualified Code(s): E11.9 - Type 2 diabetes mellitus without complications Code(s): E11.9 - Type 2 diabetes mellitus without complications Status: Acute Assessment and Plan: 06/14/24: * SSI * Hypoglycemic protocol * Heart Healthy diet * Check A1C 06/15/24: * HgbA1C 5.8% 06/16/24: * SSI * Hypoglycemic protocol * Heart Healthy diet 06/17/24: * SSI * Hypoglycemic protocol * Heart Healthy diet (9) Hallucinations: Code(s): R44.3 - Hallucinations, unspecified Status: Acute Assessment and Plan: 06/14/24: * Suspect degree of dementia associated with. * Continue Namenda and Abilify. (10) Chronic pain: Code(s): G89.29 - Other chronic pain Status: Acute Assessment and Plan: 06/14/24: * Continue Home Tramadol. (11) Restless leg syndrome: Code(s): G25.81 - Restless legs syndrome Status: Acute Assessment and Plan: 06/14/24: * Continue Requip and Ativan as home meds. (12) Transaminitis: Code(s): R74.01 - Elevation of levels of liver transaminase levels Status: Chronic Assessment and Plan: 06/14/24: * Pt asymptomatic. * Review of EMR shows chronically elevated transaminases. (13) Abnormality of gait and mobility: Code(s): R26.9 - Unspecified abnormalities of gait and mobility Status: Chronic Assessment and Plan: 06/14/24: * At baseline pt has weakness and difficulty in moving her BLE. She states she has always had difficulty since she took Chemotherapy for her Breast CA and it has left her basically W/C bound and she relies on a christopher lift. * No new focal deficits. Subjective Date/time seen: 06/17/24 10:41 Interval history: Patient reports that breathing treatment made her feel jittery. Patient reports that she slept well overnight. Heart rate in the 40's this morning. Amiodarone and Metoprolol held this morning. Patient denies chest pain, palpitations, dizziness, nausea, or vomiting. Patient reports shortness of breath with activity. Patient reports a headache that is an 8 , frequent, and aching. Review of Systems Review of Systems: All systems reviewed & are unremarkable except as noted in HPI and below Exam Const: General: no acute distress and uncomfortable Resp: Effort & Inspection: normal respiratory effort Auscultation: diminished lung sounds Cardio: Rate: regular rate Rhythm: regular rhythm Other: Telemetry- SR 63 GI: GI Palp: Yes Soft to palpation Auscultation: normal bowel sounds Neuro: Speech: normal speech Extrem: General: pedal edema bilaterally (trace edema) Psych: Mental Status: mental status grossly normal Affect: normal affect Objective Data Vital Signs Vital Signs: Vital Signs - 24 hr 06/16/24 12:00 06/16/24 14:00 06/16/24 15:15 Temperature 97.8 F Pulse Rate 53 L 62 58 L Respiratory Rate 19 20 Blood Pressure 112/64 Pulse Oximetry 98 95 Oxygen Delivery Nasal Cannula Oxygen Flow Rate 3 06/16/24 15:15 06/16/24 16:00 06/16/24 16:37 Temperature Pulse Rate 58 L 48 L 49 L Respiratory Rate 20 Blood Pressure Pulse Oximetry Oxygen Delivery Oxygen Flow Rate 06/16/24 20:00 06/16/24 20:00 06/16/24 20:16 Temperature Pulse Rate 46 L 56 L Respiratory Rate 20 Blood Pressure Pulse Oximetry 95 Oxygen Delivery Nasal Cannula Oxygen Flow Rate 3 06/16/24 20:25 06/16/24 21:19 06/17/24 00:00 Temperature 97.1 F L Pulse Rate 59 L 50 L 47 L Respiratory Rate 20 20 Blood Pressure 108/60 Pulse Oximetry 100 Oxygen Delivery Oxygen Flow Rate 06/17/24 03:34 06/17/24 03:42 06/17/24 03:53 Temperature 97.3 F L Pulse Rate 58 L 56 L 98 Respiratory Rate 16 16 18 Blood Pressure 120/64 Pulse Oximetry 46 L Oxygen Delivery Oxygen Flow Rate 06/17/24 04:00 06/17/24 07:39 06/17/24 07:39 Temperature Pulse Rate 42 L 40 L 40 L Respiratory Rate Blood Pressure Pulse Oximetry Oxygen Delivery Oxygen Flow Rate 06/17/24 07:48 06/17/24 08:35 06/17/24 08:35 Temperature 97.5 F L Pulse Rate 44 L 65 Respiratory Rate 15 20 Blood Pressure 96/57 L Pulse Oximetry 99 94 Oxygen Delivery Nasal Cannula Oxygen Flow Rate 3 06/17/24 08:49 Temperature Pulse Rate 66 Respiratory Rate 22 H Blood Pressure Pulse Oximetry Oxygen Delivery Oxygen Flow Rate Intake/Output Intake/Output: Intake & Output 06/14/24 06/15/24 06/16/24 06/17/24 23:59 23:59 23:59 23:59 Intake Total 1900 1260 1246 876 Output Total 2700 1900 950 500 Balance -800 -640 296 376 Meds/Results Medications: Active Medications Generic Name Dose Route Start Last Admin Trade Name Freq PRN Reason Stop Dose Admin Acetaminophen 650 mg 06/14/24 03:30 06/16/24 13:26 Acetaminophen 325 Mg Tablet PO 650 mg Q4H PRN Administration Mild Pain (1-3) or Fever Acetaminophen 650 mg 06/14/24 07:59 Acetaminophen 325 Mg Tablet BY MOUTH Q6H PRN Pain Rated 1-3 Al Hydrox/Mg Hydrox/Simethicone 5 ml 06/14/24 07:47 Mag Hydrox/Al Hydrox/Simeth 30 Ml Udc PO Q6H PRN Heartburn Albuterol 2.5 mg 06/14/24 07:46 Albuterol Sulfate Neb 2.5 Mg/3 Ml Inh INHALATION Q4HRT PRN Shortness Of Breath Albuterol/Ipratropium 3 ml 06/14/24 04:50 Ipratropium 0.5 Mg/Albuterol Sulfate 2.5 Mg Ampul.Neb 3 Ml INHALATION Q4HRT PRN shortness of breath/Wheezing Albuterol/Ipratropium 3 ml 06/14/24 08:00 06/17/24 08:34 Ipratropium 0.5 Mg/Albuterol Sulfate 2.5 Mg Ampul.Neb 3 Ml INHALATION 3 ml Q6HRT NICOLE Administration Amiodarone HCl 200 mg 06/14/24 09:00 06/17/24 07:39 Amiodarone Hcl 200 Mg Tablet PO Not Given DAILY NICOLE Apixaban 5 mg 06/14/24 09:00 06/17/24 08:38 Apixaban 5 Mg Tablet PO 5 mg Q12HR NICOLE Administration Aripiprazole 5 mg 06/14/24 09:00 06/17/24 08:38 Aripiprazole 5 Mg Tablet PO 5 mg DAILY NICOLE Administration Aripiprazole 2 mg 06/14/24 09:00 06/17/24 08:39 Aripiprazole 2 Mg Tablet PO 2 mg DAILY NICOLE Administration Buspirone HCl 10 mg 06/14/24 09:00 06/17/24 08:38 Buspirone Hcl 10 Mg Tablet PO 10 mg TID NICOLE Administration Calcium Carbonate 400 mg 06/14/24 07:47 Calcium Carbonate (Tums) 500 Mg (200 Mg Elemental) PO Q8H PRN Heartburn Cyanocobalamin 250 mcg 06/14/24 09:00 06/17/24 08:37 Cyanocobalamin 250 Mcg Tablet PO 250 mcg DAILY NICOLE Administration Dextrose 12.5 gm 06/14/24 07:48 Dextrose 50% 25 Gm/50 Ml Syringe IV PUSH PRN PRN Hypoglycemia Protocol Escitalopram Oxalate 20 mg 06/14/24 09:00 06/17/24 08:37 Escitalopram Oxalate 10 Mg Tablet PO 20 mg DAILY NICOLE Administration Ferrous Sulfate 325 mg 06/14/24 09:00 06/17/24 08:38 Ferrous Sulfate [address] BY MOUTH 325 mg DAILY NICOLE Administration Furosemide 40 mg 06/14/24 09:00 06/17/24 08:38 Furosemide 40 Mg Tablet PO 40 mg DAILY NICOLE Administration Gabapentin 600 mg 02/25/25 09:00 06/17/24 08:38 Gabapentin 300 Mg Capsule PO 600 mg TID NICOLE Administration Glucagon 1 mg 06/14/24 07:48 Glucagon For Inj 1 Mg Vial IM PRN PRN Hypoglycemia Protocol Glucose 15 gm 06/14/24 07:48 Glucose Oral Gel 15 Gm Of Glucse In 37.5 Gm Tube PO PRN PRN Hypoglycemia Protocol Guaifenesin/Dextromethorphan 10 ml 06/14/24 04:50 Guaifenesin/Dextromethorphan 10 Ml Udc PO Q4H PRN Cough Ceftriaxone Sodium 1 gm in 50 mls @ 100 mls/hr 06/15/24 02:00 06/17/24 01:43 Rocephin 1 Gm/Ns 50 Ml IVPB 06/20/24 01:59 Infused Q24H NICOLE Infusion Doxycycline Hyclate 100 mg in 100 mls @ 100 mls/hr 06/14/24 15:00 06/17/24 03:45 Vibramycin 100 Mg/Ns 100 Ml IVPB 06/20/24 14:59 Infused Q12H NICOLE Infusion Dextrose 1,000 mls @ 100 mls/hr 06/14/24 07:48 Dextrose 5% 1,000 Ml IVPB PRN PRN Hypoglycemia Protocol Insulin Aspart 2 - 5 units 06/14/24 08:00 06/17/24 08:52 Insulin Aspart (*Bkc) 100 Units/Ml SUB-Q 3 units TIDWM NICOLE Administration Protocol Insulin Aspart 1 - 2 units 06/14/24 21:00 06/16/24 22:45 Insulin Aspart (*Bkc) 100 Units/Ml SUB-Q Not Given HS NICOLE Protocol Lorazepam 0.5 mg 06/14/24 21:00 06/16/24 21:05 Lorazepam (*Crx) 0.5 Mg Tablet PO 0.5 mg QHS NICOLE Administration Losartan Potassium 12.5 mg 06/14/24 09:00 06/17/24 08:37 Losartan Potassium 12.5 Mg Tablet PO 12.5 mg DAILY NICOLE Administration Magnesium Hydroxide 30 ml 06/14/24 08:03 Magnesium Hydroxide Susp 30 Ml Udc PO Q6H PRN Constipation Melatonin 5 mg 06/14/24 04:50 Melatonin 5 Mg Tablet PO HS PRN Insomnia Memantine 10 mg 06/14/24 09:00 06/17/24 08:38 Memantine 10 Mg Tablet PO 10 mg BID NICOLE Administration Methylprednisolone Sodium Succinate 40 mg 06/14/24 13:00 06/17/24 01:13 Methylprednisolone Sod Succ 40 Mg Vial IV PUSH 40 mg Q12H NICOLE Administration Metoprolol Tartrate 6.25 mg 06/14/24 09:00 06/17/24 07:39 Metoprolol Tartrate 6.25 Mg Tablet PO Not Given BID [facility] Multivitamins/Calcium 1 tablet 06/14/24 09:00 06/17/24 08:38 Therapeutic Multivitamins/Minerals Tab (*Bkc) PO 1 tablet DAILY [facility] Administration Ondansetron HCl 4 mg 06/14/24 03:30 Ondansetron Inj 4 Mg/2 Ml Vial IV PUSH Q4H PRN Nausea Pantoprazole Sodium 40 mg 06/14/24 09:00 06/17/24 08:38 Pantoprazole 40 Mg Tablet PO 40 mg QAM NICOLE Administration Polyethylene Glycol 17 gm 06/14/24 07:47 Polyethylene Glycol 3350 17 Gm Powd.Pack PO HS PRN Constipation Primidone 50 mg 06/14/24 09:00 06/17/24 08:38 Primidone 50 Mg Tablet PO 50 mg BID NICOLE Administration Prochlorperazine Edisylate 10 mg 06/14/24 04:50 Prochlorperazine Edisylate 10 Mg/2 Ml Vial IV PUSH Q6H PRN Nausea And Vomiting Pyridoxine HCl 25 mg 06/14/24 09:00 06/17/24 08:37 Pyridoxine Hcl 25 Mg Tablet PO 25 mg DAILY NICOLE Administration Ropinirole HCl 0.5 mg 06/14/24 21:00 06/16/24 21:05 Ropinirole Hcl 0.5 Mg Tablet PO 0.5 mg QHS [facility] Administration Senna 8.6 mg 06/14/24 09:00 06/17/24 08:39 Sennosides 8.6 Mg Tablet PO 8.6 mg BID [facility] Administration Tamoxifen Citrate 20 mg 06/14/24 09:00 06/17/24 08:37 Tamoxifen Citrate (*Chemo) 10 Mg Tablet PO 07/14/24 08:59 20 mg DAILY NICOLE Administration Tramadol HCl 50 mg 06/14/24 09:00 06/17/24 08:38 Tramadol Hcl (*Crx) 50 Mg Tablet PO 50 mg QID NICOLE Administration Trazodone HCl 50 mg 06/14/24 21:00 06/16/24 21:06 Trazodone Hcl 50 Mg Tablet PO 50 mg QHS NICOLE Administration Vitamin D 1,000 units 06/14/24 09:00 06/17/24 08:38 Cholecalciferol 1,000 Units Tablet PO 1,000 units DAILY NICOLE Administration Radiology Results: ITS Impressions Chest X-Ray 06/14/24 05:45 Impression: Small right pleural effusion with probable right basilar atelectasis versus pneumonia. Correlate clinically. Left-sided Mediport. Chest CT 06/14/24 14:41 IMPRESSION: 1. Severe emphysema. 2. Cirrhosis of the liver. 3. Chronic small pericardial effusion. Labs Labs: Laboratory Results - last 24 hr 06/16/24 06/16/24 06/16/24 12:02 17:14 21:29 WBC RBC Hgb Hct MCV MCH MCHC RDW Plt Count MPV Immature Gran % (Auto) Neut % (Auto) Lymph % (Auto) Jackson % (Auto) Eos % (Auto) Baso % (Auto) Lymph # (Auto) Jackson # (Auto) Eos # (Auto) Baso # (Auto) Abs Immat Gran (auto) Absolute Neuts (auto) Absolute Nucleated RBC Band Neutrophils % Nucleated RBC % Platelet Estimate Hypochromasia Anisocytosis Schistocytes Sodium Potassium Chloride Carbon Dioxide Anion Gap BUN Creatinine Estim Creat Clear Calc Estimated GFR Glucose POC Capillary Glucose 170 H 266 H 183 H Calcium Magnesium Total Bilirubin AST ALT Alkaline Phosphatase Total Protein Albumin 06/17/24 06/17/24 04:49 08:04 WBC 11.1 H RBC 3.98 L Hgb 11.1 L Hct 37.1 MCV 93.2 MCH 27.9 MCHC 29.9 L RDW 16.2 H Plt Count 228 MPV 11.2 H Immature Gran % (Auto) 0.5 Neut % (Auto) 89.9 H Lymph % (Auto) 7.0 L Jackson % (Auto) 2.5 L Eos % (Auto) 0.0 Baso % (Auto) 0.1 L Lymph # (Auto) 0.78 L Jackson # (Auto) 0.3 Eos # (Auto) 0.0 Baso # (Auto) 0.0 Abs Immat Gran (auto) 0.05 H Absolute Neuts (auto) 10.0 H Absolute Nucleated RBC 0.000 Band Neutrophils % 0 Nucleated RBC % 0.0 Platelet Estimate Adequate Hypochromasia 1+ Anisocytosis 1+ Schistocytes None seen Sodium 137 Potassium 5.2 H Chloride 99 Carbon Dioxide 28 Anion Gap 10 BUN 29 H Creatinine 0.68 L Estim Creat Clear Calc 74 Estimated GFR > 60 Glucose 172 H POC Capillary Glucose 294 H Calcium 8.9 Magnesium 2.2 Total Bilirubin 0.4 AST 54 H ALT 36 H Alkaline Phosphatase 77 Total Protein 7.0 Albumin 3.7 Quality VTE Prophylaxis VTE prophylaxis: mechanical ordered
[2024-06-17] MEDS: ACETAMINOPHEN 325 MG TABLET 650 MG PO (10:47)
[2024-06-17 11:40] LABS: Glucose Point of Care 238 mg/dl (65-105)
[2024-06-17] MEDS: LEVALBUTEROL NEB 1.25 MG/3 ML INHALATION ×2 (13:59→21:20)
[2024-06-17] MEDS: METOPROLOL TARTRATE 6.25 MG TABLET PO (16:03)
[2024-06-17 16:48] LABS: Glucose Point of Care 202 mg/dl (65-105)
[2024-06-17] MEDS: MAGNESIUM HYDROXIDE SUSP 30 ML UDC PO (17:37)
[2024-06-17] MEDS: MELATONIN 5 MG TABLET PO (20:29)
[2024-06-17] MEDS: LORazepam (*CRX) 0.5 MG TABLET PO (20:29)
[2024-06-17] MEDS: rOPINIRole HCL 0.5 MG TABLET PO (20:29)
[2024-06-17] MEDS: traZODone HCL 50 MG TABLET PO (20:29)
[2024-06-18] VITALS (22 sets, daily range): BP systolic 97–115; BP diastolic 56–64; PULSE 55–80; RESP 16–22; TEMP 36.7–36.9; O2SAT 95–100
[2024-06-18] MEDS: methylPREDNISolone SOD SUCC 40 MG VIAL IV PUSH (01:00)
[2024-06-18] MEDS: DOXYCYCLINE 100 MG/NS 100 ML 100 MG/100 ML BAG 50 MG IVPB (02:14)
[2024-06-18] MEDS: LEVALBUTEROL NEB 1.25 MG/3 ML INHALATION ×4 (02:14→21:22)
[2024-06-18] MEDS: ACETAMINOPHEN 325 MG TABLET 650 MG PO ×2 (03:04→09:11)
[2024-06-18 05:33] LABS: Basophils Percent Auto 0.1 % (0.2-1.2); Hematocrit 36.2 % (37.0-47.0); Hemoglobin 10.9 g/dL (12.0-15.0); Immature Granulocyte Absolute 0.03 K/mm3 (0.00-0.031); Immature Granulocyte Percent A 0.3 % (0-0.5); Lymphocytes Absolute Auto 0.51 K/mm3 (0.9-3.2); Lymphocytes Percent Auto 5.9 % (18.3-44.2); Mean Corpuscular HGB Conc 30.1 g/dl (32-36); Mean Corpuscular Hemoglobin 27.6 pg (26-34); Mean Corpuscular Volume 91.6 fl (80-100); Monocytes Absolute Auto 0.4 K/mm3 (0.1-0.6); Monocytes Percent Auto 4.1 % (2.6-8.5); Neutrophils Absolute Auto 7.7 K/mm3 (1.3-6.7); Neutrophils Percent Auto 89.6 % (45.5-73.1); Platelet Count Result 218 k/mm3 (150-375); Red Blood Count 3.95 M/mm3 (4.2-5.4); Red Cell Distribution Width 16.1 % (11.5-14.5); White Blood Count 8.6 K/mm3 (4.5-10.0)
[2024-06-18 05:44] LABS: Alanine Aminotransferase 46 U/L (6-35); Albumin Level 3.7 g/dL (3.5-5.1); Alkaline Phosphatase 103 U/L (38-126); Anion Gap 7 mmol/L (4-12); Aspartate Amino Transferase 58 U/L (14-36); Bilirubin,Total 0.3 mg/dL (0.2-1.3); Blood Urea Nitrogen 22 mg/dL (7-17); Calcium 8.6 mg/dL (8.4-10.2); Carbon Dioxide 29 mmol/L (22-30); Chloride 100 mmol/L (98-107); Estimated CRCL calculation 80 ml/min; Estimated Glomerular Filt Rate > 60; Glucose 280 mg/dL (65-110); Magnesium 2.3 mg/dL (1.6-2.3); Potassium 4.3 mmol/L (3.4-5.0); Sodium 136 mmol/L (137-145)
[2024-06-18 08:48] LABS: Glucose Point of Care 222 mg/dl (65-105)
[2024-06-18] MEDS: TAMOXIFEN CITRATE (*CHEMO) 10 MG TABLET 20 MG PO (09:09)
[2024-06-18] MEDS: ARIPiprazole 2 MG TABLET PO (09:09)
[2024-06-18] MEDS: METOPROLOL TARTRATE 6.25 MG TABLET PO ×2 (09:10→17:48)
[2024-06-18] MEDS: GABAPENTIN 300 MG CAPSULE 600 MG PO ×3 (09:11→17:48)
[2024-06-18] MEDS: traMADol HCL (*CRX) 50 MG TABLET PO ×4 (09:12→21:05)
[2024-06-18] MEDS: PANTOPRAZOLE 40 MG TABLET PO (09:12)
[2024-06-18] MEDS: THERAPEUTIC MULTIVITAMINS/MINERALS TAB (*BKC) 1 TABLET PO (09:12)
[2024-06-18] MEDS: CHOLECALCIFEROL 1,000 UNITS TABLET 1000 UNITS PO (09:12)
[2024-06-18] MEDS: MEMANTINE 10 MG TABLET PO ×2 (09:12→17:48)
[2024-06-18] MEDS: ARIPiprazole 5 MG TABLET PO (09:12)
[2024-06-18] MEDS: ESCITALOPRAM OXALATE 10 MG TABLET 20 MG PO (09:12)
[2024-06-18] MEDS: LOSARTAN POTASSIUM 12.5 MG TABLET PO (09:12)
[2024-06-18] MEDS: SENNOSIDES 8.6 MG TABLET PO ×2 (09:12→17:48)
[2024-06-18] MEDS: AMIODARONE HCL 200 MG TABLET PO (09:12)
[2024-06-18] MEDS: busPIRone HCL 10 MG TABLET PO ×3 (09:13→17:48)
[2024-06-18] MEDS: FUROSEMIDE 40 MG TABLET PO (09:13)
[2024-06-18] MEDS: FERROUS SULFATE 325 MG TABLET DR BY MOUTH (09:13)
[2024-06-18] MEDS: PYRIDOXINE HCL 25 MG TABLET PO (09:13)
[2024-06-18] MEDS: CYANOCOBALAMIN 250 MCG TABLET PO (09:14)
[2024-06-18] MEDS: PRIMIDONE 50 MG TABLET PO ×2 (09:14→17:48)
[2024-06-18] MEDS: APIXABAN 5 MG TABLET PO ×2 (09:14→21:05)
[2024-06-18] MEDS: INSULIN ASPART (*BKC) 100 UNITS/ML SUB-Q ×2 (09:15→12:31)
[2024-06-18] MEDS: guaiFENesin/DEXTROMETHORPHAN 10 ML UDC PO ×2 (09:28→23:39)
--- NOTE | 2024-06-18 11:59 | P.PNIM_ITS ---
Progress Note: A&P Assessment and Plan (1) Shortness of breath: Code(s): R06.02 - Shortness of breath Status: Acute Assessment and Plan: 06/14/24: * Etiology PNA vs. Atelectasis vs. Right Pleural Effusion vs. COPD exacerbation * Telemetry * Continue to monitor and trend VS and labs. * CXR was reviewed independently by myself. Will obtain CT chest to further delineate among atelectasis vs. PNA vs other etiologies. * Interim continuation of Duonebs Q6, prn Albuterol Q4 hrs, Rocephin and Doxy, Solumedrol and Furosemide. * Once results of CT available, de-escalate meds for treatment and supportive care as appropriate. * Continue NC at 4L for oxygen supplementation support. * Incentive Spirometer 06/15/24: * Interim continuation of Duonebs Q6, prn Albuterol Q4 hrs, Rocephin and Doxy, Solumedrol and Furosemide. * Chest CT- IMPRESSION: 1. Severe emphysema. 2. Cirrhosis of the liver. 3. Chronic small pericardial effusion. * 02@3LNC with Sa02 96%. * Incentive spirometer. 06/16/24: * Interim continuation of Duonebs Q6, prn Albuterol Q4 hrs, Rocephin and Doxy, Solumedrol and Furosemide. * 02@3LNC with Sa02 95%. * Incentive spirometer. 06/17/24: * Interim continuation of prn Albuterol Q4 hrs, Rocephin and Doxy, Solumedrol and Furosemide. Change duoneb to Levalbuterol neb q 6. * 02@3LNC with Sa02 94%. * Incentive spirometer. 06/18/24: * Interim continuation of Levalbuterol neb q 6, prn Albuterol Q4 hrs, Rocephin and Doxy, Solumedrol (decreased to daily) and Furosemide. * 02@3LNC with Sa02 100%. * Incentive spirometer (2) Pneumonia: Code(s): J18.9 - Pneumonia, unspecified organism Status: Acute Assessment and Plan: 06/14/24: * Obtain CT to further determine if this is the causative etiology of Dyspnea. * Continue Doxy and Rocephin for now. * Continue Duonebs and Albuterol. 06/15/24: * Interim continuation of Duonebs Q6, prn Albuterol Q4 hrs, Rocephin and Doxy, Solumedrol and Furosemide. * Chest CT- IMPRESSION: 1. Severe emphysema. 2. Cirrhosis of the liver. 3. Chronic small pericardial effusion. * 02@3LNC with Sa02 95%. * Incentive spirometer. 06/16/24: * Interim continuation of Duonebs Q6, prn Albuterol Q4 hrs, Rocephin and Doxy, Solumedrol and Furosemide. * 02@3LNC with Sa02 95%. * Incentive spirometer. 06/18/24: * Interim continuation of Levalbuterol neb q 6, prn Albuterol Q4 hrs, Rocephin and Doxy, Solumedrol (decreased to daily) and Furosemide. * 02@3LNC with Sa02 100%. * Incentive spirometer (3) Chronic hypoxic respiratory failure, on home oxygen therapy: Code(s): J96.11 - Chronic respiratory failure with hypoxia; Z99.81 - Dependence on supplemental oxygen Status: Chronic Assessment and Plan: 06/14/24: * Chronic 3L supplemental oxygen at home. * Monitor oxygenation. 06/15/24: * 02@3LNC with Sa02 96%. 06/16/24: * 02@3LNC with Sa02 95%. 06/17/24: * 02@3LNC with Sa02 95%. 06/18/24: * 02@3LNC with Sa02 100%. (4) Acute and chronic respiratory failure with hypoxia: Code(s): J96.21 - Acute and chronic respiratory failure with hypoxia Status: Acute Assessment and Plan: 06/14/24: * See Above. (5) CHF (congestive heart failure): Code(s): I50.9 - Heart failure, unspecified Status: Acute Assessment and Plan: 06/14/24: * Last ECHO 12/2023 w/EF of 35%, [place] Cardiomyopathy pattern, and Grade 1 Diastolic Dysfunction * Obtain new ECHO given possible exacerbation of CHF. * Continue Lasix 40 mg BID IVP for now based on findings of CXR. * Obtain CT Chest with contrast. 06/15/24: * Echocardiogram 06/14/24: Summary 1. Definity contrast administered improved wall motion interpretation. 2. Left ventricular chamber dimension is normal. 3. Left ventricular systolic function is normal, estimated at 65-70%. 4. There is moderate concentric increased left ventricular wall thickness. 5. The left ventricular diastolic function is abnormal. 6. E/e' 12 is mildly elevated. 7. The aortic valve is not well visualized. Cannot determine number of aortic valve leaflets. 8. There is moderate aortic valve sclerosis. 9. There is moderate aortic valve stenosis with a peak velocity of 302 cm/s, mean gradient of 17 mmHg, and aortic valve area of 1.2 cm2. 10. Moderate pulmonary hypertension, estimated pulmonary arterial systolic pressure is 50 mmHg. 06/16/24: * Lasix 40 mg PO daily. 06/17/24: * Lasix 40 mg PO daily. 06/18/24: * Lasix 40 mg PO daily. (6) Atrial fibrillation: Code(s): I48.91 - Unspecified atrial fibrillation Status: Chronic Assessment and Plan: 06/14/24: * Continue Amiodarone * Continue rate control with Metoprolol * Continue Eliquis * Telemetry 06/15/24: * Continue Amiodarone * Continue rate control with Metoprolol * Continue Eliquis * Telemetry 06/16/24: * Continue Amiodarone * Continue rate control with Metoprolol * Continue Eliquis * Telemetry 06/17/24: * Held Amiodarone and Metoprolol this morning due to heart rate of 40. 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 Status: Chronic Assessment and Plan: 06/14/24: * Continue Eliquis 06/15/24: * Continue Eliquis 06/16/24: * Continue Eliquis 06/17/24: * Continue Eliquis 06/18/24: * Continue Eliquis (8) Diabetes: Qualifiers: Diabetes mellitus type: type 2 Diabetes mellitus senior care insulin use: without superintendent terminal use Diabetes mellitus complication status: without complication Qualified Code(s): E11.9 - Type 2 diabetes mellitus without complications Code(s): E11.9 - Type 2 diabetes mellitus without complications Status: Acute Assessment and Plan: 06/14/24: * SSI * Hypoglycemic protocol * Heart Healthy diet * Check A1C 06/15/24: * HgbA1C 5.8% 06/16/24: * SSI * Hypoglycemic protocol * Heart Healthy diet 06/17/24: * SSI * Hypoglycemic protocol * Heart Healthy diet 06/18/24: * SSI * Hypoglycemic protocol * Heart Healthy diet (9) Hallucinations: Code(s): R44.3 - Hallucinations, unspecified Status: Acute Assessment and Plan: 06/14/24: * Suspect degree of dementia associated with. * Continue Namenda and Abilify. (10) Chronic pain: Code(s): G89.29 - Other chronic pain Status: Acute Assessment and Plan: 06/14/24: * Continue Home Tramadol. (11) Restless leg syndrome: Code(s): G25.81 - Restless legs syndrome Status: Acute Assessment and Plan: 06/14/24: * Continue Requip and Ativan as home meds. (12) Transaminitis: Code(s): R74.01 - Elevation of levels of liver transaminase levels Status: Chronic Assessment and Plan: 06/14/24: * Pt asymptomatic. * Review of EMR shows chronically elevated transaminases. (13) Abnormality of gait and mobility: Code(s): R26.9 - Unspecified abnormalities of gait and mobility Status: Chronic Assessment and Plan: 06/14/24: * At baseline pt has weakness and difficulty in moving her BLE. She states she has always had difficulty since she took Chemotherapy for her Breast CA and it has left her basically W/C bound and she relies on a christopher lift. * No new focal deficits. Subjective Date/time seen: 06/18/24 11:59 Interval history: Patient reports that breathing is better today. Patient denies chest pain, palpitations, dizziness, nausea, or vomiting. Patient reports headache and bilateral leg pain that is a 7 , frequent, and aching. Review of Systems Review of Systems: All systems reviewed & are unremarkable except as noted in HPI and below Exam Const: General: no acute distress and uncomfortable Resp: Effort & Inspection: normal respiratory effort Auscultation: rhonchi and diminished lung sounds Cardio: Rate: regular rate Rhythm: regular rhythm Other: Telemetry-SR 61. GI: GI Palp: Yes Soft to palpation Auscultation: normal bowel sounds Neuro: Speech: normal speech Extrem: General: pedal edema bilaterally (trace) Psych: Mental Status: mental status grossly normal Affect: normal affect Objective Data Vital Signs Vital Signs: Vital Signs - 24 hr 06/17/24 12:00 06/17/24 14:00 06/17/24 14:00 Temperature 97.1 F L Pulse Rate 58 L 65 66 Respiratory Rate 22 H 16 Blood Pressure 89/58 L Pulse Oximetry 100 Oxygen Delivery Oxygen Flow Rate 06/17/24 14:14 06/17/24 16:00 06/17/24 16:03 Temperature Pulse Rate 61 73 73 Respiratory Rate 20 Blood Pressure Pulse Oximetry Oxygen Delivery Oxygen Flow Rate 06/17/24 20:00 06/17/24 20:00 06/17/24 21:20 Temperature Pulse Rate 59 L 65 60 Respiratory Rate 20 20 Blood Pressure Pulse Oximetry 94 Oxygen Delivery Nasal Cannula Oxygen Flow Rate 3 06/17/24 21:30 06/17/24 22:00 06/17/24 22:43 Temperature 97.8 F Pulse Rate 59 L 65 Respiratory Rate 20 16 Blood Pressure 97/57 L Pulse Oximetry 94 98 Oxygen Delivery Nasal Cannula Oxygen Flow Rate 3 06/18/24 00:00 06/18/24 02:14 06/18/24 02:20 Temperature Pulse Rate 58 L 57 L 66 Respiratory Rate 20 20 Blood Pressure Pulse Oximetry Oxygen Delivery Oxygen Flow Rate 06/18/24 04:00 06/18/24 06:27 06/18/24 07:33 Temperature 98.4 F Pulse Rate 68 80 56 L Respiratory Rate 16 20 Blood Pressure 115/64 Pulse Oximetry 98 Oxygen Delivery Oxygen Flow Rate 06/18/24 07:41 06/18/24 08:13 06/18/24 09:10 Temperature Pulse Rate 55 L 67 Respiratory Rate 20 Blood Pressure Pulse Oximetry 100 Oxygen Delivery Nasal Cannula Oxygen Flow Rate 3 06/18/24 09:12 Temperature Pulse Rate 67 Respiratory Rate Blood Pressure Pulse Oximetry Oxygen Delivery Oxygen Flow Rate Intake/Output Intake/Output: Intake & Output 06/15/24 06/16/24 06/17/24 06/18/24 23:59 23:59 23:59 23:59 Intake Total 1260 1246 1805 590 Output Total 5666 461 3188 1000 Balance -640 296 -395 -410 Meds/Results Medications: Active Medications Generic Name Dose Route Start Last Admin Trade Name Freq PRN Reason Stop Dose Admin Acetaminophen 650 mg 06/14/24 03:30 06/18/24 09:11 Acetaminophen 325 Mg Tablet PO 650 mg Q4H PRN Administration Mild Pain (1-3) or Fever Acetaminophen 650 mg 06/14/24 07:59 Acetaminophen 325 Mg Tablet BY MOUTH Q6H PRN Pain Rated 1-3 Al Hydrox/Mg Hydrox/Simethicone 5 ml 06/14/24 07:47 Mag Hydrox/Al Hydrox/Simeth 30 Ml Udc PO Q6H PRN Heartburn Albuterol 2.5 mg 06/14/24 07:46 Albuterol Sulfate Neb 2.5 Mg/3 Ml Inh INHALATION Q4HRT PRN Shortness Of Breath Albuterol/Ipratropium 3 ml 06/14/24 04:50 Ipratropium 0.5 Mg/Albuterol Sulfate 2.5 Mg Ampul.Neb 3 Ml INHALATION Q4HRT PRN shortness of breath/Wheezing Amiodarone HCl 200 mg 06/14/24 09:00 06/18/24 09:12 Amiodarone Hcl 200 Mg Tablet PO 200 mg DAILY NICOLE Administration Apixaban 5 mg 06/14/24 09:00 06/18/24 09:14 Apixaban 5 Mg Tablet PO 5 mg Q12HR NICOLE Administration Aripiprazole 5 mg 06/14/24 09:00 06/18/24 09:12 Aripiprazole 5 Mg Tablet PO 5 mg DAILY NICOLE Administration Aripiprazole 2 mg 06/14/24 09:00 06/18/24 09:09 Aripiprazole 2 Mg Tablet PO 2 mg DAILY NICOLE Administration Buspirone HCl 10 mg 06/14/24 09:00 06/18/24 09:13 Buspirone Hcl 10 Mg Tablet PO 10 mg TID NICOLE Administration Calcium Carbonate 400 mg 06/14/24 07:47 Calcium Carbonate (Tums) 500 Mg (200 Mg Elemental) PO Q8H PRN Heartburn Cyanocobalamin 250 mcg 06/14/24 09:00 06/18/24 09:14 Cyanocobalamin 250 Mcg Tablet PO 250 mcg DAILY NICOLE Administration Dextrose 12.5 gm 06/14/24 07:48 Dextrose 50% 25 Gm/50 Ml Syringe IV PUSH PRN PRN Hypoglycemia Protocol Escitalopram Oxalate 20 mg 06/14/24 09:00 06/18/24 09:12 Escitalopram Oxalate 10 Mg Tablet PO 20 mg DAILY NICOLE Administration Ferrous Sulfate 325 mg 06/14/24 09:00 06/18/24 09:13 Ferrous Sulfate [address] BY MOUTH 325 mg DAILY NICOLE Administration Furosemide 40 mg 06/14/24 09:00 06/18/24 09:13 Furosemide 40 Mg Tablet PO 40 mg DAILY NICOLE Administration Gabapentin 600 mg 06/14/24 09:00 06/18/24 09:11 Gabapentin 300 Mg Capsule PO 600 mg TID NICOLE Administration Glucagon 1 mg 06/14/24 07:48 Glucagon For Inj 1 Mg Vial IM PRN PRN Hypoglycemia Protocol Glucose 15 gm 06/14/24 07:48 Glucose Oral Gel 15 Gm Of Glucse In 37.5 Gm Tube PO PRN PRN Hypoglycemia Protocol Guaifenesin/Dextromethorphan 10 ml 06/14/24 04:50 06/18/24 09:28 Guaifenesin/Dextromethorphan 10 Ml Udc PO 10 ml Q4H PRN Administration Cough Ceftriaxone Sodium 1 gm in 50 mls @ 100 mls/hr 06/15/24 02:00 06/18/24 01:30 Rocephin 1 Gm/Ns 50 Ml IVPB 06/20/24 01:59 Infused Q24H NICOLE Infusion Doxycycline Hyclate 100 mg in 100 mls @ 100 mls/hr 06/14/24 15:00 06/18/24 04:14 Vibramycin 100 Mg/Ns 100 Ml IVPB 06/20/24 14:59 Infused Q12H NICOLE Infusion Dextrose 1,000 mls @ 100 mls/hr 06/14/24 07:48 Dextrose 5% 1,000 Ml IVPB PRN PRN Hypoglycemia Protocol Insulin Aspart 2 - 5 units 06/14/24 08:00 06/18/24 09:15 Insulin Aspart (*Bkc) 100 Units/Ml SUB-Q 2 units TIDWM NICOLE Administration Protocol Insulin Aspart 1 - 2 units 06/14/24 21:00 06/17/24 22:54 Insulin Aspart (*Bkc) 100 Units/Ml SUB-Q Not Given HS NICOLE Protocol Levalbuterol HCl 1.25 mg 06/17/24 14:00 06/18/24 07:31 Levalbuterol Neb 1.25 Mg/3 Ml INHALATION 1.25 mg Q6HRT NICOLE Administration Lorazepam 0.5 mg 06/14/24 21:00 06/17/24 20:29 Lorazepam (*Crx) 0.5 Mg Tablet PO 0.5 mg QHS NICOLE Administration Losartan Potassium 12.5 mg 06/14/24 09:00 06/18/24 09:12 Losartan Potassium 12.5 Mg Tablet PO 12.5 mg DAILY NICOLE Administration Magnesium Hydroxide 30 ml 06/14/24 08:03 06/17/24 17:37 Magnesium Hydroxide Susp 30 Ml Udc PO 30 ml Q6H PRN Administration Constipation Melatonin 5 mg 06/14/24 04:50 06/17/24 20:29 Melatonin 5 Mg Tablet PO 5 mg HS PRN Administration Insomnia Memantine 10 mg 06/14/24 09:00 06/18/24 09:12 Memantine 10 Mg Tablet PO 10 mg BID NICOLE Administration Methylprednisolone Sodium Succinate 40 mg 06/14/24 13:00 06/18/24 01:00 Methylprednisolone Sod Succ 40 Mg Vial IV PUSH 40 mg Q12H NICOLE Administration Metoprolol Tartrate 6.25 mg 06/14/24 09:00 06/18/24 09:10 Metoprolol Tartrate 6.25 Mg Tablet PO 6.25 mg BID NICOLE Administration Multivitamins/Calcium 1 tablet 06/14/24 09:00 06/18/24 09:12 Therapeutic Multivitamins/Minerals Tab (*Bkc) PO 1 tablet DAILY NICOLE Administration Ondansetron HCl 4 mg 06/14/24 03:30 Ondansetron Inj 4 Mg/2 Ml Vial IV PUSH Q4H PRN Nausea Pantoprazole Sodium 40 mg 06/14/24 09:00 06/18/24 09:12 Pantoprazole 40 Mg Tablet PO 40 mg QAM NICOLE Administration Polyethylene Glycol 17 gm 06/14/24 07:47 Polyethylene Glycol 3350 17 Gm Powd.Pack PO HS PRN Constipation Primidone 50 mg 06/14/24 09:00 06/18/24 09:14 Primidone 50 Mg Tablet PO 50 mg BID NICOLE Administration Prochlorperazine Edisylate 10 mg 06/14/24 04:50 Prochlorperazine Edisylate 10 Mg/2 Ml Vial IV PUSH Q6H PRN Nausea And Vomiting Pyridoxine HCl 25 mg 06/14/24 09:00 06/18/24 09:13 Pyridoxine Hcl 25 Mg Tablet PO 25 mg DAILY NICOLE Administration Ropinirole HCl 0.5 mg 06/14/24 21:00 06/17/24 20:29 Ropinirole Hcl 0.5 Mg Tablet PO 0.5 mg QHS NICOLE Administration Senna 8.6 mg 06/14/24 09:00 06/18/24 09:12 Sennosides 8.6 Mg Tablet PO 8.6 mg BID NICOLE Administration Tamoxifen Citrate 20 mg 06/14/24 09:00 06/18/24 09:09 Tamoxifen Citrate (*Chemo) 10 Mg Tablet PO 07/14/24 08:59 20 mg DAILY NICOLE Administration Tramadol HCl 50 mg 06/14/24 09:00 06/18/24 09:12 Tramadol Hcl (*Crx) 50 Mg Tablet PO 50 mg QID NICOLE Administration Trazodone HCl 50 mg 06/14/24 21:00 06/17/24 20:29 Trazodone Hcl 50 Mg Tablet PO 50 mg QHS NICOLE Administration Vitamin D 1,000 units 06/14/24 09:00 06/18/24 09:12 Cholecalciferol 1,000 Units Tablet PO 1,000 units DAILY NICOLE Administration Radiology Results: ITS Impressions Chest X-Ray 06/14/24 05:45 Impression: Small right pleural effusion with probable right basilar atelectasis versus pneumonia. Correlate clinically. Left-sided Mediport. Chest CT 06/14/24 14:41 IMPRESSION: 1. Severe emphysema. 2. Cirrhosis of the liver. 3. Chronic small pericardial effusion. Labs Labs: Laboratory Results - last 24 hr 06/17/24 06/18/24 06/18/24 16:31 05:04 08:29 WBC 8.6 RBC 3.95 L Hgb 10.9 L Hct 36.2 L MCV 91.6 MCH 27.6 MCHC 30.1 L RDW 16.1 H Plt Count 218 MPV 11.0 H Immature Gran % (Auto) 0.3 Neut % (Auto) 89.6 H Lymph % (Auto) 5.9 L [place] % (Auto) 4.1 Eos % (Auto) 0.0 Baso % (Auto) 0.1 L Lymph # (Auto) 0.51 L [place] # (Auto) 0.4 Eos # (Auto) 0.0 Baso # (Auto) 0.0 Abs Immat Gran (auto) 0.03 Absolute Neuts (auto) 7.7 H Absolute Nucleated RBC 0.000 Nucleated RBC % 0.0 Sodium 136 L Potassium 4.3 Chloride 100 Carbon Dioxide 29 Anion Gap 7 BUN 22 H Creatinine 0.63 L Estim Creat Clear Calc 80 Estimated GFR > 60 Glucose 280 H POC Capillary Glucose 202 H 222 H Calcium 8.6 Magnesium 2.3 Total Bilirubin 0.3 AST 58 H ALT 46 H Alkaline Phosphatase 103 Total Protein 7.0 Albumin 3.7 Quality VTE Prophylaxis VTE prophylaxis: mechanical ordered and pharmacologic ordered
[2024-06-18 12:29] LABS: Glucose Point of Care 224 mg/dl (65-105)
[2024-06-18] MEDS: MAGNESIUM HYDROXIDE SUSP 30 ML UDC PO (12:31)
[2024-06-18] MEDS: DOXYCYCLINE 100 MG/NS 100 ML 100 MG/100 ML BAG IVPB (15:19)
[2024-06-18 17:23] LABS: Glucose Point of Care 177 mg/dl (65-105)
[2024-06-18 20:17] LABS: Glucose Point of Care 180 mg/dl (65-105)
[2024-06-18] MEDS: LORazepam (*CRX) 0.5 MG TABLET PO (21:05)
[2024-06-18] MEDS: traZODone HCL 50 MG TABLET PO (21:06)
[2024-06-18] MEDS: rOPINIRole HCL 0.5 MG TABLET PO (21:06)
[2024-06-19] VITALS (18 sets, daily range): BP systolic 95–117; BP diastolic 51–67; PULSE 27–63; RESP 12–18; TEMP 36.3–36.9; O2SAT 97–100
[2024-06-19] MEDS: ACETAMINOPHEN 325 MG TABLET 650 MG PO (02:05)
[2024-06-19] MEDS: LEVALBUTEROL NEB 1.25 MG/3 ML INHALATION ×4 (02:28→21:04)
[2024-06-19] MEDS: DOXYCYCLINE 100 MG/NS 100 ML 100 MG/100 ML BAG 50 MG IVPB (03:14)
[2024-06-19 06:13] LABS: Basophils Percent Auto 0.1 % (0.2-1.2); Eosinophils Percent Auto 0.4 % (0-4.4); Hemoglobin 10.4 g/dL (12.0-15.0); Immature Granulocyte Absolute 0.02 K/mm3 (0.00-0.031); Immature Granulocyte Percent A 0.3 % (0-0.5); Lymphocytes Absolute Auto 1.67 K/mm3 (0.9-3.2); Lymphocytes Percent Auto 24.5 % (18.3-44.2); Mean Corpuscular HGB Conc 30.6 g/dl (32-36); Mean Corpuscular Hemoglobin 28.2 pg (26-34); Mean Corpuscular Volume 92.1 fl (80-100); Mean Platelet Volume 11.1 fl (7.4-10.4); Monocytes Absolute Auto 0.6 K/mm3 (0.1-0.6); Monocytes Percent Auto 8.1 % (2.6-8.5); Neutrophils Absolute Auto 4.5 K/mm3 (1.3-6.7); Neutrophils Percent Auto 66.6 % (45.5-73.1); Platelet Count Result 204 k/mm3 (150-375); Red Blood Count 3.69 M/mm3 (4.2-5.4); Red Cell Distribution Width 16.3 % (11.5-14.5); White Blood Count 6.8 K/mm3 (4.5-10.0)
[2024-06-19 06:32] LABS: Alanine Aminotransferase 62 U/L (6-35); Albumin Level 3.1 g/dL (3.5-5.1); Alkaline Phosphatase 86 U/L (38-126); Anion Gap 4 mmol/L (4-12); Aspartate Amino Transferase 91 U/L (14-36); Bilirubin,Total 0.3 mg/dL (0.2-1.3); Blood Urea Nitrogen 22 mg/dL (7-17); Calcium 7.9 mg/dL (8.4-10.2); Carbon Dioxide 31 mmol/L (22-30); Chloride 103 mmol/L (98-107); Estimated CRCL calculation 78 ml/min; Estimated Glomerular Filt Rate > 60; Glucose 99 mg/dL (65-110); Magnesium 2.3 mg/dL (1.6-2.3); Potassium 3.7 mmol/L (3.4-5.0); Sodium 138 mmol/L (137-145)
[2024-06-19 08:29] LABS: Glucose Point of Care 126 mg/dl (65-105)
[2024-06-19] MEDS: busPIRone HCL 10 MG TABLET PO ×3 (09:20→16:37)
[2024-06-19] MEDS: THERAPEUTIC MULTIVITAMINS/MINERALS TAB (*BKC) 1 TABLET PO (09:20)
[2024-06-19] MEDS: TAMOXIFEN CITRATE (*CHEMO) 10 MG TABLET 20 MG PO (09:20)
[2024-06-19] MEDS: MEMANTINE 10 MG TABLET PO ×2 (09:20→16:37)
[2024-06-19] MEDS: AMIODARONE HCL 200 MG TABLET PO (09:20)
[2024-06-19] MEDS: LOSARTAN POTASSIUM 12.5 MG TABLET PO (09:20)
[2024-06-19] MEDS: PANTOPRAZOLE 40 MG TABLET PO (09:20)
[2024-06-19] MEDS: traMADol HCL (*CRX) 50 MG TABLET PO ×4 (09:21→21:31)
[2024-06-19] MEDS: GABAPENTIN 300 MG CAPSULE 600 MG PO ×3 (09:21→16:37)
[2024-06-19] MEDS: FERROUS SULFATE 325 MG TABLET DR BY MOUTH (09:21)
[2024-06-19] MEDS: APIXABAN 5 MG TABLET PO ×2 (09:21→21:31)
[2024-06-19] MEDS: FUROSEMIDE 40 MG TABLET PO (09:21)
[2024-06-19] MEDS: ESCITALOPRAM OXALATE 10 MG TABLET 20 MG PO (09:21)
[2024-06-19] MEDS: ARIPiprazole 5 MG TABLET PO (09:21)
[2024-06-19] MEDS: METOPROLOL TARTRATE 6.25 MG TABLET PO ×2 (09:21→16:37)
[2024-06-19] MEDS: PYRIDOXINE HCL 25 MG TABLET PO (09:21)
[2024-06-19] MEDS: ARIPiprazole 2 MG TABLET PO (09:21)
[2024-06-19] MEDS: CYANOCOBALAMIN 250 MCG TABLET PO (09:21)
[2024-06-19] MEDS: CHOLECALCIFEROL 1,000 UNITS TABLET 1000 UNITS PO (09:21)
[2024-06-19] MEDS: SENNOSIDES 8.6 MG TABLET PO ×2 (09:21→16:38)
[2024-06-19] MEDS: methylPREDNISolone SOD SUCC 40 MG VIAL IV PUSH (09:31)
[2024-06-19] MEDS: PRIMIDONE 50 MG TABLET PO ×2 (10:38→16:37)
--- NOTE | 2024-06-19 10:41 | P.PNIM_ITS ---
Progress Note: A&P Assessment and Plan (1) Shortness of breath: Code(s): R06.02 - Shortness of breath Status: Acute Assessment and Plan: 06/14/24: * Etiology PNA vs. Atelectasis vs. Right Pleural Effusion vs. COPD exacerbation * Telemetry * Continue to monitor and trend VS and labs. * CXR was reviewed independently by myself. Will obtain CT chest to further delineate among atelectasis vs. PNA vs other etiologies. * Interim continuation of Duonebs Q6, prn Albuterol Q4 hrs, Rocephin and Doxy, Solumedrol and Furosemide. * Once results of CT available, de-escalate meds for treatment and supportive care as appropriate. * Continue NC at 4L for oxygen supplementation support. * Incentive Spirometer 06/15/24: * Interim continuation of Duonebs Q6, prn Albuterol Q4 hrs, Rocephin and Doxy, Solumedrol and Furosemide. * Chest CT- IMPRESSION: 1. Severe emphysema. 2. Cirrhosis of the liver. 3. Chronic small pericardial effusion. * 02@3LNC with Sa02 96%. * Incentive spirometer. 06/16/24: * Interim continuation of Duonebs Q6, prn Albuterol Q4 hrs, Rocephin and Doxy, Solumedrol and Furosemide. * 02@3LNC with Sa02 95%. * Incentive spirometer. 06/17/24: * Interim continuation of prn Albuterol Q4 hrs, Rocephin and Doxy, Solumedrol and Furosemide. Change duoneb to Levalbuterol neb q 6. * 02@3LNC with Sa02 94%. * Incentive spirometer. 06/18/24: * Interim continuation of Levalbuterol neb q 6, prn Albuterol Q4 hrs, Rocephin and Doxy, Solumedrol (decreased to daily) and Furosemide. * 02@3LNC with Sa02 100%. * Incentive spirometer 06/19/24: * Interim continuation of Levalbuterol neb q 6, prn Albuterol Q4 hrs, Rocephin and Doxy, Solumedrol (decreased to daily) and Furosemide. * 02@3LNC with Sa02 100%. * Incentive spirometer (2) Pneumonia: Code(s): J18.9 - Pneumonia, unspecified organism Status: Acute Assessment and Plan: 06/14/24: * Obtain CT to further determine if this is the causative etiology of Dyspnea. * Continue Doxy and Rocephin for now. * Continue Duonebs and Albuterol. 06/15/24: * Interim continuation of Duonebs Q6, prn Albuterol Q4 hrs, Rocephin and Doxy, Solumedrol and Furosemide. * Chest CT- IMPRESSION: 1. Severe emphysema. 2. Cirrhosis of the liver. 3. Chronic small pericardial effusion. * 02@3LNC with Sa02 95%. * Incentive spirometer. 06/16/24: * Interim continuation of Duonebs Q6, prn Albuterol Q4 hrs, Rocephin and Doxy, Solumedrol and Furosemide. * 02@3LNC with Sa02 95%. * Incentive spirometer. 06/18/24: * Interim continuation of Levalbuterol neb q 6, prn Albuterol Q4 hrs, Rocephin and Doxy, Solumedrol (decreased to daily) and Furosemide. * 02@3LNC with Sa02 100%. * Incentive spirometer 06/19/24: * Interim continuation of Levalbuterol neb q 6, prn Albuterol Q4 hrs, Rocephin and Doxy, Solumedrol (decreased to daily) and Furosemide. * 02@3LNC with Sa02 100%. * Incentive spirometer (3) Chronic hypoxic respiratory failure, on home oxygen therapy: Code(s): J96.11 - Chronic respiratory failure with hypoxia; Z99.81 - Dependence on supplemental oxygen Status: Chronic Assessment and Plan: 06/14/24: * Chronic 3L supplemental oxygen at home. * Monitor oxygenation. 06/15/24: * 02@3LNC with Sa02 96%. 06/16/24: * 02@3LNC with Sa02 95%. 06/17/24: * 02@3LNC with Sa02 95%. 06/18/24: * 02@3LNC with Sa02 100%. 06/19/24: * 02@3LNC with Sa02 100%. (4) Acute and chronic respiratory failure with hypoxia: Code(s): J96.21 - Acute and chronic respiratory failure with hypoxia Status: Acute Assessment and Plan: 06/14/24: * See Above. (5) CHF (congestive heart failure): Code(s): I50.9 - Heart failure, unspecified Status: Acute Assessment and Plan: 06/14/24: * Last ECHO 12/2023 w/EF of 35%, [place] Cardiomyopathy pattern, and Grade 1 Diastolic Dysfunction * Obtain new ECHO given possible exacerbation of CHF. * Continue Lasix 40 mg BID IVP for now based on findings of CXR. * Obtain CT Chest with contrast. 06/15/24: * Echocardiogram 06/14/24: Summary 1. Definity contrast administered improved wall motion interpretation. 2. Left ventricular chamber dimension is normal. 3. Left ventricular systolic function is normal, estimated at 65-70%. 4. There is moderate concentric increased left ventricular wall thickness. 5. The left ventricular diastolic function is abnormal. 6. E/e' 12 is mildly elevated. 7. The aortic valve is not well visualized. Cannot determine number of aortic valve leaflets. 8. There is moderate aortic valve sclerosis. 9. There is moderate aortic valve stenosis with a peak velocity of 302 cm/s, mean gradient of 17 mmHg, and aortic valve area of 1.2 cm2. 10. Moderate pulmonary hypertension, estimated pulmonary arterial systolic pressure is 50 mmHg. 06/16/24: * Lasix 40 mg PO daily. 06/17/24: * Lasix 40 mg PO daily. 06/18/24: * Lasix 40 mg PO daily. 06/19/24: * Lasix 40 mg PO daily. (6) Atrial fibrillation: Code(s): I48.91 - Unspecified atrial fibrillation Status: Chronic Assessment and Plan: 06/14/24: * Continue Amiodarone * Continue rate control with Metoprolol * Continue Eliquis * Telemetry 06/15/24: * Continue Amiodarone * Continue rate control with Metoprolol * Continue Eliquis * Telemetry 06/16/24: * Continue Amiodarone * Continue rate control with Metoprolol * Continue Eliquis * Telemetry 06/17/24: * Held Amiodarone and Metoprolol this morning due to heart rate of 40. * Continue Eliquis * Telemetry 06/18/24: * Continue Amiodarone * Continue rate control with Metoprolol * Continue Eliquis * Telemetry 06/19/24: * Continue Amiodarone * Continue rate control with Metoprolol * Continue Eliquis * Telemetry (7) Chronic anticoagulation: Code(s): Z79.01 - continuous churn buttermaker (current) use of anticoagulants Status: Chronic Assessment and Plan: 06/14/24: * Continue Eliquis 06/15/24: * Continue Eliquis 06/16/24: * Continue Eliquis 06/17/24: * Continue Eliquis 06/18/24: * Continue Eliquis 06/19/24: * Continue Eliquis (8) Diabetes: Qualifiers: Diabetes mellitus type: type 2 Diabetes mellitus alf insulin use: without long term care pharmacist use Diabetes mellitus complication status: without complication Qualified Code(s): E11.9 - Type 2 diabetes mellitus without c omplications Code(s): E11.9 - Type 2 diabetes mellitus without complications Status: Acute Assessment and Plan: 06/14/24: * SSI * Hypoglycemic protocol * Heart Healthy diet * Check A1C 06/15/24: * HgbA1C 5.8% 06/16/24: * SSI * Hypoglycemic protocol * Heart Healthy diet 06/17/24: * SSI * Hypoglycemic protocol * Heart Healthy diet 06/18/24: * SSI * Hypoglycemic protocol * Heart Healthy diet 06/19/24: * SSI * Hypoglycemic protocol * Heart Healthy diet (9) Hallucinations: Code(s): R44.3 - Hallucinations, unspecified Status: Acute Assessment and Plan: 06/14/24: * Suspect degree of dementia associated with. * Continue Namenda and Abilify. (10) Chronic pain: Code(s): G89.29 - Other chronic pain Status: Acute Assessment and Plan: 06/14/24: * Continue Home Tramadol. (11) Restless leg syndrome: Code(s): G25.81 - Restless legs syndrome Status: Acute Assessment and Plan: 06/14/24: * Continue Requip and Ativan as home meds. (12) Transaminitis: Code(s): R74.01 - Elevation of levels of liver transaminase levels Status: Chronic Assessment and Plan: 06/14/24: * Pt asymptomatic. * Review of EMR shows chronically elevated transaminases. (13) Abnormality of gait and mobility: Code(s): R26.9 - Unspecified abnormalities of gait and mobility Status: Chronic Assessment and Plan: 06/14/24: * At baseline pt has weakness and difficulty in moving her BLE. She states she has always had difficulty since she took Chemotherapy for her Breast CA and it has left her basically W/C bound and she relies on a christopher lift. * No new focal deficits. Subjective Date/time seen: 06/19/24 10:41 Review of Systems Review of Systems: All systems reviewed & are unremarkable except as noted in HPI and below Exam Const: General: comfortable and no acute distress Resp: Effort & Inspection: normal respiratory effort Auscultation: diminished lung sounds Cardio: Rate: bradycardic Other: Telemetry-SB 57. GI: GI Palp: Yes Soft to palpation Auscultation: normal bowel sounds Neuro: Speech: normal speech Extrem: General: pedal edema bilaterally (trace) Psych: Mental Status: mental status grossly normal Affect: normal affect Objective Data Vital Signs Vital Signs: Vital Signs - 24 hr 06/18/24 12:00 06/18/24 14:00 06/18/24 14:02 Temperature 98.0 F Pulse Rate 62 62 57 L Respiratory Rate 20 20 Blood Pressure 97/56 L Pulse Oximetry 100 Oxygen Delivery Oxygen Flow Rate 06/18/24 14:08 06/18/24 16:00 06/18/24 17:48 Temperature Pulse Rate 56 L 61 61 Respiratory Rate 20 Blood Pressure Pulse Oximetry Oxygen Delivery Oxygen Flow Rate 06/18/24 20:00 06/18/24 20:00 06/18/24 21:23 Temperature Pulse Rate 60 55 L Respiratory Rate 18 Blood Pressure Pulse Oximetry 100 98 Oxygen Delivery Nasal Cannula Nasal Cannula Oxygen Flow Rate 3 3 06/18/24 21:23 06/18/24 21:30 06/18/24 22:00 Temperature 98.2 F Pulse Rate 59 L 57 L 60 Respiratory Rate 22 H 18 18 Blood Pressure 100/60 Pulse Oximetry 100 Oxygen Delivery Oxygen Flow Rate 06/19/24 00:00 06/19/24 02:28 06/19/24 02:35 Temperature Pulse Rate 56 L 53 L 52 L Respiratory Rate 16 16 Blood Pressure Pulse Oximetry Oxygen Delivery Oxygen Flow Rate 06/19/24 04:00 06/19/24 06:00 06/19/24 08:00 Temperature 97.4 F L Pulse Rate 57 L 60 58 L Respiratory Rate 18 Blood Pressure 110/67 Pulse Oximetry 100 Oxygen Delivery Oxygen Flow Rate 06/19/24 08:00 06/19/24 08:06 06/19/24 08:06 Temperature Pulse Rate 59 L Respiratory Rate 16 Blood Pressure Pulse Oximetry 99 99 Oxygen Delivery Nasal Cannula Nasal Cannula Oxygen Flow Rate 3 3 06/19/24 08:15 06/19/24 09:21 Temperature Pulse Rate 56 L 56 L Respiratory Rate 16 Blood Pressure Pulse Oximetry Oxygen Delivery Oxygen Flow Rate Intake/Output Intake/Output: Intake & Output 06/16/24 06/17/24 06/18/24 06/19/24 23:59 23:59 23:59 23:59 Intake Total 1246 1805 930 150 Output Total 950 2200 2200 900 Balance 109 -911 -6930 -840 Meds/Results Medications: Active Medications Generic Name Dose Route Start Last Admin Trade Name Freq PRN Reason Stop Dose Admin Acetaminophen 650 mg 06/14/24 03:30 06/19/24 02:05 Acetaminophen 325 Mg Tablet PO 650 mg Q4H PRN Administration Mild Pain (1-3) or Fever Acetaminophen 650 mg 06/14/24 07:59 Acetaminophen 325 Mg Tablet BY MOUTH Q6H PRN Pain Rated 1-3 Al Hydrox/Mg Hydrox/Simethicone 5 ml 06/14/24 07:47 Mag Hydrox/Al Hydrox/Simeth 30 Ml Udc PO Q6H PRN Heartburn Albuterol 2.5 mg 06/14/24 07:46 Albuterol Sulfate Neb 2.5 Mg/3 Ml Inh INHALATION Q4HRT PRN Shortness Of Breath Albuterol/Ipratropium 3 ml 06/14/24 04:50 Ipratropium 0.5 Mg/Albuterol Sulfate 2.5 Mg Ampul.Neb 3 Ml INHALATION Q4HRT PRN shortness of breath/Wheezing Amiodarone HCl 200 mg 06/14/24 09:00 06/19/24 09:20 Amiodarone Hcl 200 Mg Tablet PO 200 mg DAILY NICOLE Administration Apixaban 5 mg 06/14/24 09:00 06/19/24 09:21 Apixaban 5 Mg Tablet PO 5 mg Q12HR NICOLE Administration Aripiprazole 5 mg 06/14/24 09:00 06/19/24 09:21 Aripiprazole 5 Mg Tablet PO 5 mg DAILY NICOLE Administration Aripiprazole 2 mg 06/14/24 09:00 06/19/24 09:21 Aripiprazole 2 Mg Tablet PO 2 mg DAILY NICOLE Administration Buspirone HCl 10 mg 06/14/24 09:00 06/19/24 09:20 Buspirone Hcl 10 Mg Tablet PO 10 mg TID NICOLE Administration Calcium Carbonate 400 mg 06/14/24 07:47 Calcium Carbonate (Tums) 500 Mg (200 Mg Elemental) PO Q8H PRN Heartburn Cyanocobalamin 250 mcg 06/14/24 09:00 06/19/24 09:21 Cyanocobalamin 250 Mcg Tablet PO 250 mcg DAILY NICOLE Administration Dextrose 12.5 gm 06/14/24 07:48 Dextrose 50% 25 Gm/50 Ml Syringe IV PUSH PRN PRN Hypoglycemia Protocol Escitalopram Oxalate 20 mg 06/14/24 09:00 06/19/24 09:21 Escitalopram Oxalate 10 Mg Tablet PO 20 mg DAILY NICOLE Administration Ferrous Sulfate 325 mg 06/14/24 09:00 06/19/24 09:21 Ferrous Sulfate [address] BY MOUTH 325 mg DAILY NICOLE Administration Furosemide 40 mg 06/14/24 09:00 06/19/24 09:21 Furosemide 40 Mg Tablet PO 40 mg DAILY NICOLE Administration Gabapentin 600 mg 06/14/24 09:00 06/19/24 09:21 Gabapentin 300 Mg Capsule PO 600 mg TID NICOLE Administration Glucagon 1 mg 06/14/24 07:48 Glucagon For Inj 1 Mg Vial IM PRN PRN Hypoglycemia Protocol Glucose 15 gm 06/14/24 07:48 Glucose Oral Gel 15 Gm Of Glucse In 37.5 Gm Tube PO PRN PRN Hypoglycemia Protocol Guaifenesin/Dextromethorphan 10 ml 06/14/24 04:50 06/18/24 23:39 Guaifenesin/Dextromethorphan 10 Ml Udc PO 10 ml Q4H PRN Administration Cough Ceftriaxone Sodium 1 gm in 50 mls @ 100 mls/hr 06/15/24 02:00 06/19/24 02:34 Rocephin 1 Gm/Ns 50 Ml IVPB 06/20/24 01:59 Infused Q24H NICOLE Infusion Doxycycline Hyclate 100 mg in 100 mls @ 100 mls/hr 06/14/24 15:00 06/19/24 05:14 Vibramycin 100 Mg/Ns 100 Ml IVPB 06/20/24 14:59 Infused Q12H NICOLE Infusion Dextrose 1,000 mls @ 100 mls/hr 06/14/24 07:48 Dextrose 5% 1,000 Ml IVPB PRN PRN Hypoglycemia Protocol Insulin Aspart 2 - 5 units 06/14/24 08:00 06/19/24 09:02 Insulin Aspart (*Bkc) 100 Units/Ml SUB-Q Not Given TIDWM NICOLE Protocol Insulin Aspart 1 - 2 units 06/14/24 21:00 06/18/24 21:06 Insulin Aspart (*Bkc) 100 Units/Ml SUB-Q Not Given HS NICOLE Protocol Levalbuterol HCl 1.25 mg 06/17/24 14:00 06/19/24 08:06 Levalbuterol Neb 1.25 Mg/3 Ml INHALATION 1.25 mg Q6HRT NICOLE Administration Lorazepam 0.5 mg 06/14/24 21:00 06/18/24 21:05 Lorazepam (*Crx) 0.5 Mg Tablet PO 0.5 mg QHS NICOLE Administration Losartan Potassium 12.5 mg 06/14/24 09:00 06/19/24 09:20 Losartan Potassium 12.5 Mg Tablet PO 12.5 mg DAILY NICOLE Administration Magnesium Hydroxide 30 ml 06/14/24 08:03 06/17/24 17:37 Magnesium Hydroxide Susp 30 Ml Udc PO 30 ml Q6H PRN Administration Constipation Melatonin 5 mg 06/14/24 04:50 06/17/24 20:29 Melatonin 5 Mg Tablet PO 5 mg HS PRN Administration Insomnia Memantine 10 mg 06/14/24 09:00 06/19/24 09:20 Memantine 10 Mg Tablet PO 10 mg BID NICOLE Administration Methylprednisolone Sodium Succinate 40 mg 06/19/24 09:00 06/19/24 09:31 Methylprednisolone Sod Succ 40 Mg Vial IV PUSH 40 mg DAILY NICOLE Administration Metoprolol Tartrate 6.25 mg 06/14/24 09:00 06/19/24 09:21 Metoprolol Tartrate 6.25 Mg Tablet PO 6.25 mg BID NICOLE Administration Multivitamins/Calcium 1 tablet 06/14/24 09:00 06/19/24 09:20 Therapeutic Multivitamins/Minerals Tab (*Bkc) PO 1 tablet DAILY NICOLE Administration Ondansetron HCl 4 mg 06/14/24 03:30 Ondansetron Inj 4 Mg/2 Ml Vial IV PUSH Q4H PRN Nausea Pantoprazole Sodium 40 mg 06/14/24 09:00 06/19/24 09:20 Pantoprazole 40 Mg Tablet PO 40 mg QAM NICOLE Administration Polyethylene Glycol 17 gm 06/14/24 07:47 Polyethylene Glycol 3350 17 Gm Powd.Pack PO HS PRN Constipation Primidone 50 mg 06/14/24 09:00 06/19/24 10:38 Primidone 50 Mg Tablet PO 50 mg BID NICOLE Administration Prochlorperazine Edisylate 10 mg 06/14/24 04:50 Prochlorperazine Edisylate 10 Mg/2 Ml Vial IV PUSH Q6H PRN Nausea And Vomiting Pyridoxine HCl 25 mg 06/14/24 09:00 06/19/24 09:21 Pyridoxine Hcl 25 Mg Tablet PO 25 mg DAILY NICOLE Administration Ropinirole HCl 0.5 mg 06/14/24 21:00 06/18/24 21:06 Ropinirole Hcl 0.5 Mg Tablet PO 0.5 mg QHS NICOLE Administration Senna 8.6 mg 06/14/24 09:00 06/19/24 09:21 Sennosides 8.6 Mg Tablet PO 8.6 mg BID NICOLE Administration Tamoxifen Citrate 20 mg 06/14/24 09:00 06/19/24 09:20 Tamoxifen Citrate (*Chemo) 10 Mg Tablet PO 07/14/24 08:59 20 mg DAILY NICOLE Administration Tramadol HCl 50 mg 06/14/24 09:00 06/19/24 09:21 Tramadol Hcl (*Crx) 50 Mg Tablet PO 50 mg QID NICOLE Administration Trazodone HCl 50 mg 06/14/24 21:00 06/18/24 21:06 Trazodone Hcl 50 Mg Tablet PO 50 mg QHS NICOLE Administration Vitamin D 1,000 units 06/14/24 09:00 06/19/24 09:21 Cholecalciferol 1,000 Units Tablet PO 1,000 units DAILY NICOLE Administration Radiology Results: ITS Impressions Chest X-Ray 06/14/24 05:45 Impression: Small right pleural effusion with probable right basilar atelectasis versus pneumonia. Correlate clinically. Left-sided Mediport. Chest CT 06/14/24 14:41 IMPRESSION: 1. Severe emphysema. 2. Cirrhosis of the liver. 3. Chronic small pericardial effusion. Labs Labs: Laboratory Results - last 24 hr 06/18/24 06/18/24 06/18/24 11:54 17:05 20:08 WBC RBC Hgb Hct MCV MCH MCHC RDW Plt Count MPV Immature Gran % (Auto) Neut % (Auto) Lymph % (Auto) [place] % (Auto) Eos % (Auto) Baso % (Auto) Lymph # (Auto) [place] # (Auto) Eos # (Auto) Baso # (Auto) Abs Immat Gran (auto) Absolute Neuts (auto) Absolute Nucleated RBC Nucleated RBC % Sodium Potassium Chloride Carbon Dioxide Anion Gap BUN Creatinine Estim Creat Clear Calc Estimated GFR Glucose POC Capillary Glucose 224 H 177 H 180 H Calcium Magnesium Total Bilirubin AST ALT Alkaline Phosphatase Total Protein Albumin 06/19/24 06/19/24 05:42 08:08 WBC 6.8 RBC 3.69 L Hgb 10.4 L Hct 34.0 L MCV 92.1 MCH 28.2 MCHC 30.6 L RDW 16.3 H Plt Count 204 MPV 11.1 H Immature Gran % (Auto) 0.3 Neut % (Auto) 66.6 Lymph % (Auto) 24.5 [place] % (Auto) 8.1 Eos % (Auto) 0.4 Baso % (Auto) 0.1 L Lymph # (Auto) 1.67 [place] # (Auto) 0.6 Eos # (Auto) 0.0 Baso # (Auto) 0.0 Abs Immat Gran (auto) 0.02 Absolute Neuts (auto) 4.5 Absolute Nucleated RBC 0.000 Nucleated RBC % 0.0 Sodium 138 Potassium 3.7 Chloride 103 Carbon Dioxide 31 H Anion Gap 4 BUN 22 H Creatinine 0.65 L Estim Creat Clear Calc 78 Estimated GFR > 60 Glucose 99 POC Capillary Glucose 126 H Calcium 7.9 L Magnesium 2.3 Total Bilirubin 0.3 AST 91 H ALT 62 H Alkaline Phosphatase 86 Total Protein 6.0 L Albumin 3.1 L Quality VTE Prophylaxis VTE prophylaxis: mechanical ordered and pharmacologic ordered
[2024-06-19 11:20] LABS: Glucose Point of Care 172 mg/dl (65-105)
[2024-06-19] MEDS: DOXYCYCLINE 100 MG/NS 100 ML 100 MG/100 ML BAG IVPB (14:34)
[2024-06-19] MEDS: INSULIN ASPART (*BKC) 100 UNITS/ML SUB-Q (17:03)
[2024-06-19 17:19] LABS: Glucose Point of Care 222 mg/dl (65-105)
--- NOTE | 2024-06-19 18:25 | ECG_ITS ---
Test Date: 2024-06-19 18:37:39 Measurements Intervals [place] Rate: 39 P: 0 [place]: 0 QRS: -10 QRSD: 95 T: 118 QT: 501 QTc: 404 Interpretive Statements SUPRAVENTRICULAR BRADYCARDIA, POSSIBLY JUNCTIONAL SEPTAL MYOCARDIAL INFARCTION , PROBABLY OLD [40+ ms Q WAVE IN V1/V2] Compared to ECG 06/14/2024 00:02:59 POSSIBLE JUNCTIONAL BRADYCARDIA NOW PRESENT Electronically Signed On 06-21-2024 15:34:18 ENVELOPE ADJUSTER by Jim Garcia M.D.
--- NOTE | 2024-06-19 18:28 | P.PNCROSS_ITS ---
Event Note Event Note Event Note: I was called at 18:30 for bradycardia (HR 37),BP 110/50. Patient was given Meto prolol at 16:00. Advised to hold Metoprolol until further instruction. Reviewed EKG. Order electrolytes, TSH and Cardiology consult. Continue monitor on tele. Give atropine 0.6 mg IV x 1. I examined the patient , reports tiredness but denies any chest pain,SOB or dizziness. She was watching a game show and was able to have conversation with me without any difficulties. I was called again by the nurse and informed pharmacy can not dispense Atropine to [address] [place] [id number] and patient needs to be transferred to IMU.
--- NOTE | 2024-06-19 18:31 | PC.NURSE ---
Respiratory at bedside performing an EKG.
[2024-06-19 19:19] LABS: Hematocrit 36.5 % (37.0-47.0); Mean Corpuscular HGB Conc 30.1 g/dl (32-36); Mean Corpuscular Hemoglobin 27.9 pg (26-34); Mean Corpuscular Volume 92.6 fl (80-100); Mean Platelet Volume 10.9 fl (7.4-10.4); Platelet Count Result 250 k/mm3 (150-375); Red Blood Count 3.94 M/mm3 (4.2-5.4); Red Cell Distribution Width 16.3 % (11.5-14.5); White Blood Count 10.5 K/mm3 (4.5-10.0)
[2024-06-19] MEDS: ATROPINE SULFATE 0.4 MG/ML VIAL 0.6 MG IV PUSH (19:19)
[2024-06-19 19:35] LABS: Alanine Aminotransferase 107 U/L (6-35); Albumin Level 3.5 g/dL (3.5-5.1); Alkaline Phosphatase 90 U/L (38-126); Anion Gap 6 mmol/L (4-12); Aspartate Amino Transferase 164 U/L (14-36); Bilirubin,Total 0.2 mg/dL (0.2-1.3); Blood Urea Nitrogen 22 mg/dL (7-17); Calcium 8.2 mg/dL (8.4-10.2); Carbon Dioxide 27 mmol/L (22-30); Chloride 103 mmol/L (98-107); Estimated CRCL calculation 67 ml/min; Estimated Glomerular Filt Rate > 60; Glucose 230 mg/dL (65-110); Potassium 4.7 mmol/L (3.4-5.0); Sodium 136 mmol/L (137-145)
[2024-06-19 20:00] LABS: Influenza A QL RT-PCR Negative (Negative); Influenza B QL RT-PCR Negative (Negative); RSV RNA, RT-PCR Negative (Negative); SARS-CoV-2 RNA PCR Positive (Negative)
[2024-06-19 21:25] LABS: Glucose Point of Care 190 mg/dl (65-105)
[2024-06-19] MEDS: traZODone HCL 50 MG TABLET PO (21:31)
[2024-06-19] MEDS: LORazepam (*CRX) 0.5 MG TABLET PO (21:31)
[2024-06-19] MEDS: rOPINIRole HCL 0.5 MG TABLET PO (21:31)
[2024-06-20] VITALS (18 sets, daily range): BP systolic 97–106; BP diastolic 48–67; PULSE 33–51; RESP 12–20; TEMP 36.6–36.8; O2SAT 96–100
[2024-06-20] MEDS: LEVALBUTEROL NEB 1.25 MG/3 ML INHALATION ×4 (02:09→19:48)
[2024-06-20] MEDS: DOXYCYCLINE 100 MG/NS 100 ML 100 MG/100 ML BAG 50 MG IVPB (02:50)
[2024-06-20] MEDS: ACETAMINOPHEN 325 MG TABLET 650 MG PO (05:36)
[2024-06-20 05:51] LABS: Basophils Percent Auto 0.1 % (0.2-1.2); Eosinophils Percent Auto 0.2 % (0-4.4); Hematocrit 35.9 % (37.0-47.0); Hemoglobin 10.7 g/dL (12.0-15.0); Immature Granulocyte Absolute 0.06 K/mm3 (0.00-0.031); Immature Granulocyte Percent A 0.5 % (0-0.5); Lymphocytes Percent Auto 14.9 % (18.3-44.2); Mean Corpuscular HGB Conc 29.8 g/dl (32-36); Mean Corpuscular Hemoglobin 27.5 pg (26-34); Mean Corpuscular Volume 92.3 fl (80-100); Mean Platelet Volume 11.1 fl (7.4-10.4); Monocytes Absolute Auto 0.8 K/mm3 (0.1-0.6); Monocytes Percent Auto 6.4 % (2.6-8.5); Neutrophils Absolute Auto 9.9 K/mm3 (1.3-6.7); Neutrophils Percent Auto 77.9 % (45.5-73.1); Platelet Count Result 234 k/mm3 (150-375); Red Blood Count 3.89 M/mm3 (4.2-5.4); Red Cell Distribution Width 16.3 % (11.5-14.5); White Blood Count 12.8 K/mm3 (4.5-10.0)
[2024-06-20 06:09] LABS: Alanine Aminotransferase 101 U/L (6-35); Albumin Level 3.4 g/dL (3.5-5.1); Alkaline Phosphatase 84 U/L (38-126); Anion Gap 5 mmol/L (4-12); Aspartate Amino Transferase 117 U/L (14-36); Bilirubin,Total 0.3 mg/dL (0.2-1.3); Blood Urea Nitrogen 24 mg/dL (7-17); Calcium 8.3 mg/dL (8.4-10.2); Carbon Dioxide 30 mmol/L (22-30); Chloride 101 mmol/L (98-107); Estimated CRCL calculation 74 ml/min; Estimated Glomerular Filt Rate > 60; Glucose 138 mg/dL (65-110); Magnesium 2.4 mg/dL (1.6-2.3); Potassium 4.4 mmol/L (3.4-5.0); Sodium 136 mmol/L (137-145)
[2024-06-20 06:29] LABS: Platelet Estimate Adequate (Adequate); Schistocytes None Seen
[2024-06-20 08:06] LABS: Glucose Point of Care 139 mg/dl (65-105)
--- NOTE | 2024-06-20 08:37 | ECG_ITS ---
Test Date: 2024-06-20 09:43:53 Measurements Intervals [place] Rate: 43 P: 0 CO: 0 QRS: 0 QRSD: 93 T: 65 QT: 473 QTc: 402 Interpretive Statements SUPRAVENTRICULAR BRADYCARDIA, POSSBILY JUNCTIONAL NONSPECIFIC T-WAVE ABNORMALITY ABNORMAL RHYTHM ECG Compared to ECG 06/19/2024 18:37:39 NO SIGNIFICANT CHANGES Electronically Signed On 06-21-2024 15:51:27 CERTIFIED MEDICAL ASST by Jim Garcia M.D.
[2024-06-20] MEDS: methylPREDNISolone SOD SUCC 40 MG VIAL IV PUSH (08:39)
[2024-06-20] MEDS: ARIPiprazole 5 MG TABLET PO (08:39)
[2024-06-20] MEDS: traMADol HCL (*CRX) 50 MG TABLET PO ×4 (08:39→20:32)
[2024-06-20] MEDS: ARIPiprazole 2 MG TABLET PO (08:39)
[2024-06-20] MEDS: CHOLECALCIFEROL 1,000 UNITS TABLET 1000 UNITS PO (08:40)
[2024-06-20] MEDS: THERAPEUTIC MULTIVITAMINS/MINERALS TAB (*BKC) 1 TABLET PO (08:40)
[2024-06-20] MEDS: GABAPENTIN 300 MG CAPSULE 600 MG PO ×3 (08:40→16:13)
[2024-06-20] MEDS: PYRIDOXINE HCL 25 MG TABLET PO (08:40)
[2024-06-20] MEDS: APIXABAN 5 MG TABLET PO ×2 (08:40→20:32)
[2024-06-20] MEDS: AMIODARONE HCL 200 MG TABLET PO (08:40)
[2024-06-20] MEDS: TAMOXIFEN CITRATE (*CHEMO) 10 MG TABLET 20 MG PO (08:40)
[2024-06-20] MEDS: SENNOSIDES 8.6 MG TABLET PO ×2 (08:41→16:13)
[2024-06-20] MEDS: ESCITALOPRAM OXALATE 10 MG TABLET 20 MG PO (08:41)
[2024-06-20] MEDS: MEMANTINE 10 MG TABLET PO ×2 (08:41→16:13)
[2024-06-20] MEDS: busPIRone HCL 10 MG TABLET PO ×3 (08:41→16:13)
[2024-06-20] MEDS: FERROUS SULFATE 325 MG TABLET DR BY MOUTH (08:41)
[2024-06-20] MEDS: PRIMIDONE 50 MG TABLET PO ×2 (08:41→16:13)
[2024-06-20] MEDS: PANTOPRAZOLE 40 MG TABLET PO (08:41)
[2024-06-20] MEDS: CYANOCOBALAMIN 250 MCG TABLET PO (08:41)
[2024-06-20] MEDS: FUROSEMIDE 40 MG TABLET PO (08:41)
--- NOTE | 2024-06-20 09:44 | PM.CNCAR ---
Assessment and Plan Assessment and plan (1) Bradycardia: Code(s): R00.1 - Bradycardia, unspecified Status: Acute Assessment and Plan: On telemetry she appears to be in a junctional rhythm with retrograde p waves, rate generally in the 40's. She does have some intermittent drops into the 30's. She does not appear to be symptomatic with this, though she only gets out of bed to a wheelchair by christopher lift, so difficult to assess for ambulatory symptoms. She takes amiodarone and metoprolol for her atrial fibrillation, so will hold these medications for now and observe her heart rate/rhythm on telemetry. If she becomes more bradycardic or hypotensive we could transcutaneously pace or start on dopamine drip. If her heart rate does not increase after withholding amio and metoprolol, may consider pacemaker implantation. (2) Shortness of breath: Code(s): R06.02 - Shortness of breath Status: Acute Assessment and Plan: Secondary to COPD, COVID/pneumonia. On supplemental oxygen. Management per hospitalist. (3) Atypical chest pain: Code(s): R07.89 - Other chest pain Status: Acute Assessment and Plan: Left upper chest tenderness that is reproducible by palpation. This does not seem to be cardiac in nature. No further workup recommended in this regard at this time. (4) Pneumonia: Code(s): J18.9 - Pneumonia, unspecified organism Status: Acute Assessment and Plan: On abx, supplemental O2 per hospitalist. (5) COPD (chronic obstructive pulmonary disease): Qualifiers: COPD type: COPD with acute lower respiratory infection Qualified Code(s): J44.0 - Chronic obstructive pulmonary disease with (acute) lower respiratory infection Code(s): J44.9 - Chronic obstructive pulmonary disease, unspecified Status: Acute Assessment and Plan: Per hospitalist. (6) Atrial fibrillation: Code(s): I48.91 - Unspecified atrial fibrillation Status: Chronic Assessment and Plan: Holding amiodarone and metoprolol. Continue a/c for cardioembolic risk reduction. History of Present Illness History of Present Illness Consult date/time: 06/20/24 09:44 Requesting physician: Fede Murillo MD Consult reason: Other (bradycardia) Reason For Visit: Acute on chronic hypoxic respiratory failure, Comm Narrative: Marleni Mcgrath is a 73 year old female with history of atrial fibrillation, cardiomyopathy now with recovered LV function, and moderate aortic stenosis. She is hospitalized now because of shortness of breath and has been found to be positive for COVID and is being treated for pneumonia. Cardiology is consulted for bradycardia. She denies any syncope, pre-syncope. She does endorse some left sided chest pain which is reproducible and constant. She also endorses bilateral lower extremity edema. Her shortness of breath has improved since hospital admission and she is feeling better overall. No current complaints. Review of Systems Review of Systems: All systems reviewed & are unremarkable except as noted in HPI and below PMFSH Past Medical History Medical History Abnormality of gait and mobility Transaminitis Chronic pain Psychosis Patient has had a history of hallucinations/psychosis she is on Abilify. It is unclear for psychosis is due to dementia with psychosis verses depression with psychosis or history of possible underlying bipolar patient is not able to provide the details Restless leg syndrome Dementia Mild T12 burst fracture Compression fracture of L1 vertebra Cholelithiasis Anxiety and depression Breast cancer With history of radiation therapy and chemotherapy Dysphagia Iron deficiency anemia Type 2 diabetes mellitus treated with insulin Essential tremor Chronic hypoxic respiratory failure, on home oxygen therapy CHF (congestive heart failure) Chronic constipation Portal hypertensive gastropathy Cirrhosis Chronic anticoagulation COPD (chronic obstructive pulmonary disease) Diabetes Closed fracture of left proximal humerus Surgical History Surgical History History of bilateral mastectomy History of colonoscopy with polypectomy Family History Family History Other Unknown family medical history Social History Social History Smoking packs per day: 1 Smoking cigarettes per day: 20.0 Years smoked: 50 Smoking pack-years: 50.00 Smoking status: Former smoker Second hand tobacco smoke exposure: No Alcohol intake: never Substance use: never Do You Feel Safe in your Home?: Yes Lack of Transportation: No Lack of Food: Never True Current Housing: I Have Housing Concerned About Future Housing: No Difficulty Paying Gas/Electric Bills: No Difficulty Paying for Meds: No Currently Unemployed: No Education: High School Diploma/GED Difficulty w/ Childcare or Family Care: No Spiritual care concerns: No Meds Home Medications and Allergies Home Medications ?Medication ?Instructions ?Recorded ?Confirmed ?Type acetaminophen 650 mg tablet 650 mg PO Q6H PRN pain 10/28/23 06/14/24 History albuterol sulfate 90 mcg/actuation 2 puff inhalation Q4H PRN 10/28/23 06/14/24 History aerosol inhaler Shortness Of Breath Or Wheezing aripiprazole 2 mg tablet 2 mg PO DAILY 10/28/23 06/14/24 History aripiprazole 5 mg tablet 5 mg PO DAILY 10/28/23 06/14/24 History buspirone 10 mg tablet 10 mg PO TID 10/28/23 06/14/24 History cholecalciferol (vitamin D3) 25 25 mcg PO DAILY 10/28/23 06/14/24 History mcg (1,000 unit) capsule (Vitamin D3) escitalopram oxalate 10 mg tablet 20 mg PO DAILY 10/28/23 06/14/24 History ferrous sulfate 325 mg (65 mg 325 mg PO DAILY 10/28/23 06/14/24 History iron) tablet furosemide 40 mg tablet 40 mg PO DAILY 10/28/23 06/14/24 History gabapentin 600 mg tablet 600 mg PO TID 10/28/23 06/14/24 History insulin aspart U-100 100 unit/mL See Rx Instructions .Route .COMPLEX 10/28/23 06/14/24 History (3 mL) subcutaneous pen lorazepam 0.5 mg tablet 0.5 mg PO QHS 10/28/23 06/14/24 History memantine 10 mg tablet 10 mg PO BID 10/28/23 06/14/24 History metformin 500 mg tablet 500 mg PO DAILY 10/28/23 06/14/24 History primidone 50 mg tablet 50 mg PO BID 10/28/23 06/14/24 History ropinirole 0.5 mg tablet 0.5 mg PO QHS 10/28/23 06/14/24 History tamoxifen 20 mg tablet 20 mg PO DAILY 10/28/23 06/14/24 History tramadol 50 mg tablet 50 mg PO QID 10/28/23 06/14/24 History trazodone 50 mg tablet 50 mg PO QHS 10/28/23 06/14/24 History aluminum-mag hydroxide-simethicone 5 ml PO Q6H PRN Heartburn 01/11/24 06/14/24 History 400 mg-400 mg-40 mg/5 mL oral susp (Maalox Maximum Strength) calcium carbonate 400 mg PO Q8H PRN Heartburn 01/11/24 06/14/24 History cyanocobalamin (vitamin B-12) 250 250 mcg PO DAILY 01/11/24 06/14/24 History mcg tablet ipratropium 0.5 mg-albuterol 3 mg 3 ml inhalation Q6H PRN 01/11/24 06/14/24 History (2.5 mg base)/3 mL nebulization sob/wheezing soln magnesium hydroxide 2,400 mg/10 mL 30 ml PO Q6H PRN Constipation 01/11/24 06/14/24 History oral suspension (Milk Of Magnesia Concentrated) multivitamin with minerals 1 tablet PO DAILY 01/11/24 06/14/24 History (Multiple Vitamin-Minerals tablet) naloxone 4 mg/actuation nasal 1 spray intranasal Q2-3M PRN 01/11/24 06/14/24 History spray (Narcan) Opiate Reversal ondansetron 4 mg disintegrating 4 mg PO Q8H PRN Nausea And Vomiting 01/11/24 06/14/24 History tablet pantoprazole 40 mg tablet,delayed 40 mg PO QAM 01/11/24 06/14/24 History release polyethylene glycol 3350 17 17 g PO HS PRN Constipation 01/11/24 06/14/24 History gram/dose oral powder (Miralax) pyridoxine (vitamin B6) 25 mg 25 mg PO DAILY 01/11/24 06/14/24 History tablet sennosides 8.6 mg tablet (senna) 8.6 mg PO BID 01/11/24 06/14/24 History apixaban 5 mg tablet (Eliquis) 5 mg PO Q12HR #60 tabs 01/14/24 06/14/24 Rx losartan 25 mg tablet 12.5 mg (1/2 x 25 mg) PO DAILY #30 01/14/24 06/14/24 Rx tabs Novolog FlexPen U-100 Insulin 2 - 14 units .Route BID 03/27/24 06/14/24 History nystatin 100,000 unit/gram topical 1 applic topical PRN PRN Antifungal 03/27/24 06/14/24 History powder metoprolol tartrate 25 mg tablet 6.25 mg (1/4 x 25 mg) PO BID #30 04/02/24 06/14/24 Rx tabs amiodarone 200 mg tablet (Pacerone) 200 mg PO Q24H 06/14/24 06/14/24 History levalbuterol tartrate 45 1 inh inhalation TID PRN shortness 06/14/24 06/14/24 History mcg/actuation aerosol inhaler of breath or wheezing Allergies Allergy/AdvReac Type Severity Reaction Status Date / Time amoxicillin (From Augmentin) Allergy Unknown Verified 06/13/24 23:32 clavulanic acid (From Allergy Unknown Verified 06/13/24 23:32 Augmentin) Vital Signs Vital Signs - 24 hr 06/19/24 11:15 06/19/24 12:00 06/19/24 14:42 Temperature 36.9 C Pulse Rate 63 61 50 L Respiratory Rate 16 Blood Pressure 117/53 L Pulse Oximetry 100 Oxygen Delivery Oxygen Flow Rate 06/19/24 16:00 06/19/24 18:26 06/19/24 20:00 Temperature Pulse Rate 51 L 39 L 27 L Respiratory Rate 18 Blood Pressure 102/56 L Pulse Oximetry 99 100 Oxygen Delivery Nasal Cannula Nasal Cannula Oxygen Flow Rate 4 4 06/19/24 20:00 06/19/24 21:05 06/19/24 21:05 Temperature Pulse Rate 51 L 39 L Respiratory Rate 12 Blood Pressure Pulse Oximetry 97 Oxygen Delivery Nasal Cannula Oxygen Flow Rate 3 06/19/24 21:10 06/19/24 21:21 06/20/24 00:00 Temperature 36.3 C L Pulse Rate 47 L 27 L 36 L Respiratory Rate 12 18 Blood Pressure 95/51 L Pulse Oximetry 100 Oxygen Delivery Oxygen Flow Rate 06/20/24 02:09 06/20/24 02:18 06/20/24 04:00 Temperature Pulse Rate 37 L 35 L 39 L Respiratory Rate 12 12 Blood Pressure Pulse Oximetry Oxygen Delivery Oxygen Flow Rate 06/20/24 05:07 06/20/24 07:59 06/20/24 07:59 Temperature 36.8 C Pulse Rate 41 L 33 L 33 L Respiratory Rate 18 20 20 Blood Pressure 97/67 L Pulse Oximetry 100 98 Oxygen Delivery Nasal Cannula Oxygen Flow Rate 3 06/20/24 08:00 06/20/24 08:00 06/20/24 08:07 Temperature Pulse Rate 37 L 34 L 35 L Respiratory Rate 20 20 Blood Pressure Pulse Oximetry 98 Oxygen Delivery Nasal Cannula Oxygen Flow Rate 3 06/20/24 08:40 Temperature Pulse Rate 34 L Respiratory Rate Blood Pressure Pulse Oximetry Oxygen Delivery Oxygen Flow Rate Exam Const: General: comfortable, no acute distress, alert and awake Orientation/consciousness: patient oriented x3 HENMT: Head: normal to inspection Eyes: General: appearance normal, both eyes and all related structures Pupils: Equal, round and reactive pupils present Neck: Neck: normal visual inspection, supple and no JVD Carotids: normal carotid upstroke Resp: Effort & Inspection: normal respiratory effort Auscultation: not clear to auscultation bilaterally, rhonchi and wheezes Cardio: Rate: bradycardic Rhythm: regular rhythm Heart sounds: S1 normal heart sound present, S2 normal heart sound present and no murmurs GI: Auscultation: normal bowel sounds Skin: General skin exam: normal color Neuro: General: patient oriented x3 Cranial nerves: Yes Equal, round and reactive pupils present Extrem: General: normal to inspection Other: mild bilateral lower extremity edema Psych: Appearance: grossly normal Mental Status: mental status grossly normal Results Labs and Meds 06/20/24 04:59 06/20/24 04:59 Lab results: Cardiac Enzymes 06/19/24 06/20/24 Range/Units 19:11 04:59 AST 164 H 117 H (14-36) U/L CBC 06/19/24 06/20/24 Range/Units 19:11 04:59 WBC 10.5 H 12.8 H (4.5-10.0) K/mm3 RBC 3.94 L 3.89 L (4.2-5.4) M/mm3 Hgb 11.0 L 10.7 L (12.0-15.0) g/dL Hct 36.5 L 35.9 L (37.0-47.0) % Plt Count 250 234 (150-375) k/mm3 Lymph # (Auto) 1.90 (0.9-3.2) K/mm3 Bullock # (Auto) 0.8 H (0.1-0.6) K/mm3 Eos # (Auto) 0.0 (0-0.3) K/mm3 Baso # (Auto) 0.0 (0.0-0.1) K/mm3 Comprehensive Metabolic Panel 06/19/24 06/20/24 Range/Units 19:11 04:59 Sodium 136 L 136 L (137-145) mmol/L Potassium 4.7 4.4 (3.4-5.0) mmol/L Chloride 103 101 (98-107) mmol/L Carbon Dioxide 27 30 (22-30) mmol/L BUN 22 H 24 H (7-17) mg/dL Creatinine 0.77 0.69 L (0.7-1.0) mg/dL Glucose 230 H 138 H (65-110) mg/dL Calcium 8.2 L 8.3 L (8.4-10.2) mg/dL AST 164 H 117 H (14-36) U/L ALT 107 H 101 H (6-35) U/L Alkaline Phosphatase 90 84 (38-126) U/L Total Protein 6.0 L 7.0 (6.3-8.2) g/dL Albumin 3.5 3.4 L (3.5-5.1) g/dL Intake and Output 06/19/24 06/20/24 06/20/24 23:59 07:59 15:59 Intake Total 240 350 Output Total 500 Balance 240 -150 Intake: IV 100 Doxycycline 100 mg/Ns 100 ml 100 100 mg In 100 ml @ 100 mls/hr IVPB Q12H [facility] Rx#:[id number] Oral 240 250 Output: Catheter Urine 500 External/Condom 500 Other: # Urine Diapers 1 Patient Weight 06/20/24 23:59 Weight 97.3 kg
--- NOTE | 2024-06-20 10:48 | P.PNIM_ITS ---
Progress Note: A&P Assessment and Plan (1) Shortness of breath: Code(s): R06.02 - Shortness of breath Status: Acute Assessment and Plan: 06/14/24: * Etiology PNA vs. Atelectasis vs. Right Pleural Effusion vs. COPD exacerbation * Telemetry * Continue to monitor and trend VS and labs. * CXR was reviewed independently by myself. Will obtain CT chest to further delineate among atelectasis vs. PNA vs other etiologies. * Interim continuation of Duonebs Q6, prn Albuterol Q4 hrs, Rocephin and Doxy, Solumedrol and Furosemide. * Once results of CT available, de-escalate meds for treatment and supportive care as appropriate. * Continue NC at 4L for oxygen supplementation support. * Incentive Spirometer 06/15/24: * Interim continuation of Duonebs Q6, prn Albuterol Q4 hrs, Rocephin and Doxy, Solumedrol and Furosemide. * Chest CT- IMPRESSION: 1. Severe emphysema. 2. Cirrhosis of the liver. 3. Chronic small pericardial effusion. * 02@3LNC with Sa02 96%. * Incentive spirometer. 06/16/24: * Interim continuation of Duonebs Q6, prn Albuterol Q4 hrs, Rocephin and Doxy, Solumedrol and Furosemide. * 02@3LNC with Sa02 95%. * Incentive spirometer. 06/17/24: * Interim continuation of prn Albuterol Q4 hrs, Rocephin and Doxy, Solumedrol and Furosemide. Change duoneb to Levalbuterol neb q 6. * 02@3LNC with Sa02 94%. * Incentive spirometer. 06/18/24: * Interim continuation of Levalbuterol neb q 6, prn Albuterol Q4 hrs, Rocephin and Doxy, Solumedrol (decreased to daily) and Furosemide. * 02@3LNC with Sa02 100%. * Incentive spirometer 06/19/24: * Interim continuation of Levalbuterol neb q 6, prn Albuterol Q4 hrs, Rocephin and Doxy, Solumedrol (decreased to daily) and Furosemide. * 02@3LNC with Sa02 100%. * Incentive spirometer 06/20/24: * Interim continuation of Levalbuterol neb q 6, prn Albuterol Q4 hrs, Doxy, Solumedrol daily, and Furosemide. Completed Ceftriaxone. * 02@3LNC with Sa02 98%. * Incentive spirometer. (2) Pneumonia: Code(s): J18.9 - Pneumonia, unspecified organism Status: Acute Assessment and Plan: 06/14/24: * Obtain CT to further determine if this is the causative etiology of Dyspnea. * Continue Doxy and Rocephin for now. * Continue Duonebs and Albuterol. 06/15/24: * Interim continuation of Duonebs Q6, prn Albuterol Q4 hrs, Rocephin and Doxy, Solumedrol and Furosemide. * Chest CT- IMPRESSION: 1. Severe emphysema. 2. Cirrhosis of the liver. 3. Chronic small pericardial effusion. * 02@3LNC with Sa02 95%. * Incentive spirometer. 06/16/24: * Interim continuation of Duonebs Q6, prn Albuterol Q4 hrs, Rocephin and Doxy, Solumedrol and Furosemide. * 02@3LNC with Sa02 95%. * Incentive spirometer. 06/18/24: * Interim continuation of Levalbuterol neb q 6, prn Albuterol Q4 hrs, Rocephin and Doxy, Solumedrol (decreased to daily) and Furosemide. * 02@3LNC with Sa02 100%. * Incentive spirometer 06/19/24: * Interim continuation of Levalbuterol neb q 6, prn Albuterol Q4 hrs, Rocephin and Doxy, Solumedrol (decreased to daily) and Furosemide. * 02@3LNC with Sa02 100%. * Incentive spirometer 06/20/24: * Interim continuation of Levalbuterol neb q 6, prn Albuterol Q4 hrs, Doxy, Miri umedrol daily, and Furosemide. Completed Ceftriaxone. * 02@3LNC with Sa02 98%. * incentive spirometer. (3) Chronic hypoxic respiratory failure, on home oxygen therapy: Code(s): J96.11 - Chronic respiratory failure with hypoxia; Z99.81 - Dependence on supplemental oxygen Status: Chronic Assessment and Plan: 06/14/24: * Chronic 3L supplemental oxygen at home. * Monitor oxygenation. 06/15/24: * 02@3LNC with Sa02 96%. 06/16/24: * 02@3LNC with Sa02 95%. 06/17/24: * 02@3LNC with Sa02 95%. 06/18/24: * 02@3LNC with Sa02 100%. 06/19/24: * 02@3LNC with Sa02 100%. 06/20/24: * 02@3LNC with Sa02 98%. (4) Acute and chronic respiratory failure with hypoxia: Code(s): J96.21 - Acute and chronic respiratory failure with hypoxia Status: Acute Assessment and Plan: 06/14/24: * See Above. (5) CHF (congestive heart failure): Code(s): I50.9 - Heart failure, unspecified Status: Acute Assessment and Plan: 06/14/24: * Last ECHO 12/2023 w/EF of 35%, [place] Cardiomyopathy pattern, and Grade 1 Diastolic Dysfunction * Obtain new ECHO given possible exacerbation of CHF. * Continue Lasix 40 mg BID IVP for now based on findings of CXR. * Obtain CT Chest with contrast. 06/15/24: * Echocardiogram 06/14/24: Summary 1. Definity contrast administered improved wall motion interpretation. 2. Left ventricular chamber dimension is normal. 3. Left ventricular systolic function is normal, estimated at 65-70%. 4. There is moderate concentric increased left ventricular wall thickness. 5. The left ventricular diastolic function is abnormal. 6. E/e' 12 is mildly elevated. 7. The aortic valve is not well visualized. Cannot determine number of aortic valve leaflets. 8. There is moderate aortic valve sclerosis. 9. There is moderate aortic valve stenosis with a peak velocity of 302 cm/s, mean gradient of 17 mmHg, and aortic valve area of 1.2 cm2. 10. Moderate pulmonary hypertension, estimated pulmonary arterial systolic pressure is 50 mmHg. 06/16/24: * Lasix 40 mg PO daily. 06/17/24: * Lasix 40 mg PO daily. 06/18/24: * Lasix 40 mg PO daily. 06/19/24: * Lasix 40 mg PO daily. 06/20/24: * Lasix 40 mg PO daily. (6) Bradycardia: Code(s): R00.1 - Bradycardia, unspecified Status: Acute Assessment and Plan: * Patient heart rate dropped into 30's last evening. Patient was given Atropine. * Currently SB 40. * Cardiology consult, appreciate recommendations. * Holding Amiodarone and Metoprolol. * Per cardiology: she appears to be in a junctional rhythm with retrograde p waves, rate generally in the 40's. She does have some intermittent drops into the 30's. She does not appear to be symptomatic with this, though she only gets out of bed to a wheelchair by christopher lift, so difficult to assess for ambulatory symptoms. She takes amiodarone and metoprolol for her atrial fibrillation, so will hold these medications for now and observe her heart rate/rhythm on telemetry. If she becomes more bradycardic or hypotensive we could transcutaneously pace or start on dopamine drip. If her heart rate does not increase after withholding amio and metoprolol, may consider pacemaker implantation. (7) Atrial fibrillation: Code(s): I48.91 - Unspecified atrial fibrillation Status: Chronic Assessment and Plan: 06/14/24: * Continue Amiodarone * Continue rate control with Metoprolol * Continue Eliquis * Telemetry 06/15/24: * Continue Amiodarone * Continue rate control with Metoprolol * Continue Eliquis * Telemetry 06/16/24: * Continue Amiodarone * Continue rate control with Metoprolol * Continue Eliquis * Telemetry 06/17/24: * Held Amiodarone and Metoprolol this morning due to heart rate of 40. * Continue Eliquis * Telemetry 06/18/24: * Continue Amiodarone * Continue rate control with Metoprolol * Continue Eliquis * Telemetry 06/19/24: * Continue Amiodarone * Continue rate control with Metoprolol * Continue Eliquis * Telemetry 06/20/24: * Hold Metoprolol and Amiodarone due to bradycardia. * Continue Eliquis * Telemetry * Cardiology consulted, appreciate recommendations. (8) COVID: Code(s): U07.1 - COVID-19 Status: Acute Assessment and Plan: * Covid positive on 06/19/24. * Manage symptoms. (9) Chronic anticoagulation: Code(s): Z79.01 - intermediate teacher (current) use of anticoagulants Status: Chronic Assessment and Plan: 06/14/24: * Continue Eliquis 06/15/24: * Continue Eliquis 06/16/24: * Continue Eliquis 06/17/24: * Continue Eliquis 06/18/24: * Continue Eliquis 06/19/24: * Continue Eliquis 06/20/24: * Continue Eliquis (10) Diabetes: Qualifiers: Diabetes mellitus type: type 2 Diabetes mellitus senior living insulin use: without superintendent terminal use Diabetes mellitus complication status: without complication Qualified Code(s): E11.9 - Type 2 diabetes mellitus without complications Code(s): E11.9 - Type 2 diabetes mellitus without complications Status: Acute Assessment and Plan: 06/14/24: * SSI * Hypoglycemic protocol * Heart Healthy diet * Check A1C 06/15/24: * HgbA1C 5.8% 06/16/24: * SSI * Hypoglycemic protocol * Heart Healthy diet 06/17/24: * SSI * Hypoglycemic protocol * Heart Healthy diet 06/18/24: * SSI * Hypoglycemic protocol * Heart Healthy diet 06/19/24: * SSI * Hypoglycemic protocol * Heart Healthy diet 06/20/24: * SSI * Hypoglycemic protocol * Heart Healthy diet (11) Hallucinations: Code(s): R44.3 - Hallucinations, unspecified Status: Acute Assessment and Plan: 06/14/24: * Suspect degree of dementia associated with. * Continue Namenda and Abilify. (12) Chronic pain: Code(s): G89.29 - Other chronic pain Status: Acute Assessment and Plan: 06/14/24: * Continue Home Tramadol. (13) Restless leg syndrome: Code(s): G25.81 - Restless legs syndrome Status: Acute Assessment and Plan: 06/14/24: * Continue Requip and Ativan as home meds. (14) Transaminitis: Code(s): R74.01 - Elevation of levels of liver transaminase levels Status: Chronic Assessment and Plan: 06/14/24: * Pt asymptomatic. * Review of EMR shows chronically elevated transaminases. (15) Abnormality of gait and mobility: Code(s): R26.9 - Unspecified abnormalities of gait and mobility Status: Chronic Assessment and Plan: 06/14/24: * At baseline pt has weakness and difficulty in moving her BLE. She states she has always had difficulty since she took Chemotherapy for her Breast CA and it has left her basically W/C bound and she relies on a christopher lift. * No new focal deficits. Subjective Date/time seen: 06/20/24 10:48 Interval history: Patient denies chest pain, palpitations, headache, dizziness, nausea, or vomiting. Patient reports occasional dizziness with position changes. Review of Systems Review of Systems: All systems reviewed & are unremarkable except as noted in HPI and below Exam Const: General: comfortable and no acute distress Resp: Effort & Inspection: normal respiratory effort Auscultation: rhonchi and wheezes expiratory wheezes Cardio: Rate: bradycardic Other: Telemetry- sinus anne 40. GI: GI Palp: Yes Soft to palpation Auscultation: normal bowel sounds Neuro: Speech: normal speech Extrem: General: pedal edema on the right (1+ edema) and on the left (trace edema) Psych: Mental Status: mental status grossly normal Affect: normal affect Objective Data Vital Signs Vital Signs: Vital Signs - 24 hr 06/19/24 11:15 06/19/24 12:00 06/19/24 14:42 Temperature 98.5 F Pulse Rate 63 61 50 L Respiratory Rate 16 Blood Pressure 117/53 L Pulse Oximetry 100 Oxygen Delivery Oxygen Flow Rate 06/19/24 16:00 06/19/24 18:26 06/19/24 20:00 Temperature Pulse Rate 51 L 39 L 27 L Respiratory Rate 18 Blood Pressure 102/56 L Pulse Oximetry 99 100 Oxygen Delivery Nasal Cannula Nasal Cannula Oxygen Flow Rate 4 4 06/19/24 20:00 06/19/24 21:05 06/19/24 21:05 Temperature Pulse Rate 51 L 39 L Respiratory Rate 12 Blood Pressure Pulse Oximetry 97 Oxygen Delivery Nasal Cannula Oxygen Flow Rate 3 06/19/24 21:10 06/19/24 21:21 06/20/24 00:00 Temperature 97.4 F L Pulse Rate 47 L 27 L 36 L Respiratory Rate 12 18 Blood Pressure 95/51 L Pulse Oximetry 100 Oxygen Delivery Oxygen Flow Rate 06/20/24 02:09 06/20/24 02:18 06/20/24 04:00 Temperature Pulse Rate 37 L 35 L 39 L Respiratory Rate 12 12 Blood Pressure Pulse Oximetry Oxygen Delivery Oxygen Flow Rate 06/20/24 05:07 06/20/24 07:59 06/20/24 07:59 Temperature 98.2 F Pulse Rate 41 L 33 L 33 L Respiratory Rate 18 20 20 Blood Pressure 97/67 L Pulse Oximetry 100 98 Oxygen Delivery Nasal Cannula Oxygen Flow Rate 3 06/20/24 08:00 06/20/24 08:00 06/20/24 08:07 Temperature Pulse Rate 37 L 34 L 35 L Respiratory Rate 20 20 Blood Pressure Pulse Oximetry 98 Oxygen Delivery Nasal Cannula Oxygen Flow Rate 3 06/20/24 08:40 Temperature Pulse Rate 34 L Respiratory Rate Blood Pressure Pulse Oximetry Oxygen Delivery Oxygen Flow Rate Intake/Output Intake/Output: Intake & Output 06/17/24 06/18/24 06/19/24 06/20/24 23:59 23:59 23:59 23:59 Intake Total 1805 930 970 350 Output Total 2200 2200 900 500 Balance -395 -1270 70 -150 Meds/Results Medications: Active Medications Generic Name Dose Route Start Last Admin Trade Name Freq PRN Reason Stop Dose Admin Acetaminophen 650 mg 06/14/24 03:30 06/20/24 05:36 Acetaminophen 325 Mg Tablet PO 650 mg Q4H PRN Administration Mild Pain (1-3) or Fever Acetaminophen 650 mg 06/14/24 07:59 Acetaminophen 325 Mg Tablet BY MOUTH Q6H PRN Pain Rated 1-3 Al Hydrox/Mg Hydrox/Simethicone 5 ml 06/14/24 07:47 Mag Hydrox/Al Hydrox/Simeth 30 Ml Udc PO Q6H PRN Heartburn Albuterol 2.5 mg 06/14/24 07:46 Albuterol Sulfate Neb 2.5 Mg/3 Ml Inh INHALATION Q4HRT PRN Shortness Of Breath Albuterol/Ipratropium 3 ml 06/14/24 04:50 Ipratropium 0.5 Mg/Albuterol Sulfate 2.5 Mg Ampul.Neb 3 Ml INHALATION Q4HRT PRN shortness of breath/Wheezing Amiodarone HCl 200 mg 06/14/24 09:00 06/20/24 08:40 Amiodarone Hcl 200 Mg Tablet PO 200 mg DAILY NICOLE Administration Apixaban 5 mg 06/14/24 09:00 06/20/24 08:40 Apixaban 5 Mg Tablet PO 5 mg Q12HR NICOLE Administration Aripiprazole 5 mg 06/14/24 09:00 06/20/24 08:39 Aripiprazole 5 Mg Tablet PO 5 mg DAILY NICOLE Administration Aripiprazole 2 mg 06/14/24 09:00 06/20/24 08:39 Aripiprazole 2 Mg Tablet PO 2 mg DAILY NICOLE Administration Buspirone HCl 10 mg 06/14/24 09:00 06/20/24 08:41 Buspirone Hcl 10 Mg Tablet PO 10 mg TID NICOLE Administration Calcium Carbonate 400 mg 06/14/24 07:47 Calcium Carbonate (Tums) 500 Mg (200 Mg Elemental) PO Q8H PRN Heartburn Cyanocobalamin 250 mcg 06/14/24 09:00 06/20/24 08:41 Cyanocobalamin 250 Mcg Tablet PO 250 mcg DAILY NICOLE Administration Dextrose 12.5 gm 06/14/24 07:48 Dextrose 50% 25 Gm/50 Ml Syringe IV PUSH PRN PRN Hypoglycemia Protocol Escitalopram Oxalate 20 mg 06/14/24 09:00 06/20/24 08:41 Escitalopram Oxalate 10 Mg Tablet PO 20 mg DAILY NICOLE Administration Ferrous Sulfate 325 mg 06/14/24 09:00 06/20/24 08:41 Ferrous Sulfate [address] BY MOUTH 325 mg DAILY NICOLE Administration Furosemide 40 mg 06/14/24 09:00 06/20/24 08:41 Furosemide 40 Mg Tablet PO 40 mg DAILY NICOLE Administration Gabapentin 600 mg 06/14/24 09:00 06/20/24 08:40 Gabapentin 300 Mg Capsule PO 600 mg TID NICOLE Administration Glucagon 1 mg 06/14/24 07:48 Glucagon For Inj 1 Mg Vial IM PRN PRN Hypoglycemia Protocol Glucose 15 gm 06/14/24 07:48 Glucose Oral Gel 15 Gm Of Glucse In 37.5 Gm Tube PO PRN PRN Hypoglycemia Protocol Guaifenesin/Dextromethorphan 10 ml 06/14/24 04:50 06/18/24 23:39 Guaifenesin/Dextromethorphan 10 Ml Udc PO 10 ml Q4H PRN Administration Cough Doxycycline Hyclate 100 mg in 100 mls @ 100 mls/hr 06/14/24 15:00 06/20/24 04:50 Vibramycin 100 Mg/Ns 100 Ml IVPB 06/20/24 14:59 Infused Q12H NICOLE Infusion Dextrose 1,000 mls @ 100 mls/hr 06/14/24 07:48 Dextrose 5% 1,000 Ml IVPB PRN PRN Hypoglycemia Protocol Insulin Aspart 2 - 5 units 06/14/24 08:00 06/20/24 10:01 Insulin Aspart (*Bkc) 100 Units/Ml SUB-Q Not Given TIDWM NICOLE Protocol Insulin Aspart 1 - 2 units 06/14/24 21:00 06/19/24 21:31 Insulin Aspart (*Bkc) 100 Units/Ml SUB-Q Not Given HS NICOLE Protocol Levalbuterol HCl 1.25 mg 06/17/24 14:00 06/20/24 07:58 Levalbuterol Neb 1.25 Mg/3 Ml INHALATION 1.25 mg Q6HRT NICOLE Administration Lorazepam 0.5 mg 06/14/24 21:00 06/19/24 21:31 Lorazepam (*Crx) 0.5 Mg Tablet PO 0.5 mg QHS NICOLE Administration Losartan Potassium 12.5 mg 06/14/24 09:00 06/20/24 10:02 Losartan Potassium 12.5 Mg Tablet PO Not Given DAILY NICOLE Magnesium Hydroxide 30 ml 06/14/24 08:03 06/17/24 17:37 Magnesium Hydroxide Susp 30 Ml Udc PO 30 ml Q6H PRN Administration Constipation Melatonin 5 mg 06/14/24 04:50 06/17/24 20:29 Melatonin 5 Mg Tablet PO 5 mg HS PRN Administration Insomnia Memantine 10 mg 06/14/24 09:00 06/20/24 08:41 Memantine 10 Mg Tablet PO 10 mg BID NICOLE Administration Methylprednisolone Sodium Succinate 40 mg 06/19/24 09:00 06/20/24 08:39 Methylprednisolone Sod Succ 40 Mg Vial IV PUSH 40 mg DAILY NICOLE Administration Metoprolol Tartrate 6.25 mg 06/14/24 09:00 06/19/24 16:37 Metoprolol Tartrate 6.25 Mg Tablet PO 6.25 mg BID NICOLE Administration Multivitamins/Calcium 1 tablet 06/14/24 09:00 06/20/24 08:40 Therapeutic Multivitamins/Minerals Tab (*Bkc) PO 1 tablet DAILY NICOLE Administration Ondansetron HCl 4 mg 06/14/24 03:30 Ondansetron Inj 4 Mg/2 Ml Vial IV PUSH Q4H PRN Nausea Pantoprazole Sodium 40 mg 06/14/24 09:00 06/20/24 08:41 Pantoprazole 40 Mg Tablet PO 40 mg QAM NICOLE Administration Polyethylene Glycol 17 gm 06/14/24 07:47 Polyethylene Glycol 3350 17 Gm Powd.Pack PO HS PRN Constipation Primidone 50 mg 06/14/24 09:00 06/20/24 08:41 Primidone 50 Mg Tablet PO 50 mg BID NICOLE Administration Prochlorperazine Edisylate 10 mg 06/14/24 04:50 Prochlorperazine Edisylate 10 Mg/2 Ml Vial IV PUSH Q6H PRN Nausea And Vomiting Pyridoxine HCl 25 mg 06/14/24 09:00 06/20/24 08:40 Pyridoxine Hcl 25 Mg Tablet PO 25 mg DAILY NICOLE Administration Ropinirole HCl 0.5 mg 06/14/24 21:00 06/19/24 21:31 Ropinirole Hcl 0.5 Mg Tablet PO 0.5 mg QHS NICOLE Administration Senna 8.6 mg 06/14/24 09:00 06/20/24 08:41 Sennosides 8.6 Mg Tablet PO 8.6 mg BID NICOLE Administration Tamoxifen Citrate 20 mg 06/14/24 09:00 06/20/24 08:40 Tamoxifen Citrate (*Chemo) 10 Mg Tablet PO 07/14/24 08:59 20 mg DAILY NICOLE Administration Tramadol HCl 50 mg 06/14/24 09:00 06/20/24 08:39 Tramadol Hcl (*Crx) 50 Mg Tablet PO 50 mg QID NICOLE Administration Trazodone HCl 50 mg 06/14/24 21:00 06/19/24 21:31 Trazodone Hcl 50 Mg Tablet PO 50 mg QHS NICOLE Administration Vitamin D 1,000 units 06/14/24 09:00 06/20/24 08:40 Cholecalciferol 1,000 Units Tablet PO 1,000 units DAILY NICOLE Administration Radiology Results: ITS Impressions Chest X-Ray 06/14/24 05:45 Impression: Small right pleural effusion with probable right basilar atelectasis versus pneumonia. Correlate clinically. Left-sided Mediport. Chest CT 06/14/24 14:41 IMPRESSION: 1. Severe emphysema. 2. Cirrhosis of the liver. 3. Chronic small pericardial effusion. Labs Labs: Laboratory Results - last 24 hr 06/19/24 06/19/24 06/19/24 11:15 16:58 19:11 WBC 10.5 H RBC 3.94 L Hgb 11.0 L Hct 36.5 L MCV 92.6 MCH 27.9 MCHC 30.1 L RDW 16.3 H Plt Count 250 MPV 10.9 H Immature Gran % (Auto) Neut % (Auto) Lymph % (Auto) [place] % (Auto) Eos % (Auto) Baso % (Auto) Lymph # (Auto) [place] # (Auto) Eos # (Auto) Baso # (Auto) Abs Immat Gran (auto) Absolute Neuts (auto) Absolute Nucleated RBC Band Neutrophils % Nucleated RBC % Platelet Estimate Schistocytes Sodium 136 L Potassium 4.7 Chloride 103 Carbon Dioxide 27 Anion Gap 6 BUN 22 H Creatinine 0.77 Estim Creat Clear Calc 67 Estimated GFR > 60 Glucose 230 H POC Capillary Glucose 172 H 222 H Calcium 8.2 L Magnesium Total Bilirubin 0.2 AST 164 H ALT 107 H Alkaline Phosphatase 90 Total Protein 6.0 L Albumin 3.5 TSH (Reflex) 1.040 Influenza A (RT-PCR) Influenza B (RT-PCR) RSV (RT-PCR) SARS-CoV-2 RNA (RT-PCR) 06/19/24 06/19/24 06/20/24 19:18 21:18 04:59 WBC 12.8 H RBC 3.89 L Hgb 10.7 L Hct 35.9 L MCV 92.3 MCH 27.5 MCHC 29.8 L RDW 16.3 H Plt Count 234 MPV 11.1 H Immature Gran % (Auto) 0.5 Neut % (Auto) 77.9 H Lymph % (Auto) 14.9 L [place] % (Auto) 6.4 Eos % (Auto) 0.2 Baso % (Auto) 0.1 L Lymph # (Auto) 1.90 [place] # (Auto) 0.8 H Eos # (Auto) 0.0 Baso # (Auto) 0.0 Abs Immat Gran (auto) 0.06 H Absolute Neuts (auto) 9.9 H Absolute Nucleated RBC 0.000 Band Neutrophils % Not Reportable Nucleated RBC % 0.0 Platelet Estimate Adequate Schistocytes None seen Sodium 136 L Potassium 4.4 Chloride 101 Carbon Dioxide 30 Anion Gap 5 BUN 24 H Creatinine 0.69 L Estim Creat Clear Calc 74 Estimated GFR > 60 Glucose 138 H POC Capillary Glucose 190 H Calcium 8.3 L Magnesium 2.4 H Total Bilirubin 0.3 AST 117 H ALT 101 H Alkaline Phosphatase 84 Total Protein 7.0 Albumin 3.4 L TSH (Reflex) Influenza A (RT-PCR) Negative Influenza B (RT-PCR) Negative RSV (RT-PCR) Negative SARS-CoV-2 RNA (RT-PCR) Positive A 06/20/24 08:04 WBC RBC Hgb Hct MCV MCH MCHC RDW Plt Count MPV Immature Gran % (Auto) Neut % (Auto) Lymph % (Auto) [place] % (Auto) Eos % (Auto) Baso % (Auto) Lymph # (Auto) [place] # (Auto) Eos # (Auto) Baso # (Auto) Abs Immat Gran (auto) Absolute Neuts (auto) Absolute Nucleated RBC Band Neutrophils % Nucleated RBC % Platelet Estimate Schistocytes Sodium Potassium Chloride Carbon Dioxide Anion Gap BUN Creatinine Estim Creat Clear Calc Estimated GFR Glucose POC Capillary Glucose 139 H Calcium Magnesium Total Bilirubin AST ALT Alkaline Phosphatase Total Protein Albumin TSH (Reflex) Influenza A (RT-PCR) Influenza B (RT-PCR) RSV (RT-PCR) SARS-CoV-2 RNA (RT-PCR) Quality VTE Prophylaxis VTE prophylaxis: mechanical ordered and pharmacologic ordered
[2024-06-20] MEDS: guaiFENesin/DEXTROMETHORPHAN 10 ML UDC PO (12:25)
[2024-06-20 12:38] LABS: Glucose Point of Care 120 mg/dl (65-105)
[2024-06-20 17:15] LABS: Glucose Point of Care 191 mg/dl (65-105)
[2024-06-20] MEDS: LORazepam (*CRX) 0.5 MG TABLET PO (20:32)
[2024-06-20] MEDS: traZODone HCL 50 MG TABLET PO (20:32)
[2024-06-20] MEDS: rOPINIRole HCL 0.5 MG TABLET PO (20:32)
[2024-06-20 21:56] LABS: Glucose Point of Care 195 mg/dl (65-105)
[2024-06-21] VITALS (19 sets, daily range): BP systolic 98–132; BP diastolic 46–61; PULSE 41–66; RESP 16–20; TEMP 36.6; O2SAT 98–100
[2024-06-21] MEDS: LEVALBUTEROL NEB 1.25 MG/3 ML INHALATION ×4 (02:06→20:14)
[2024-06-21] MEDS: ACETAMINOPHEN 325 MG TABLET 650 MG PO (05:26)
[2024-06-21] MEDS: BENZOCAINE/MENTHOL (*BKC) 18 EA LOZENGE 1 LOZENGE PO (05:26)
[2024-06-21 06:12] LABS: Basophils Percent Auto 0.1 % (0.2-1.2); Eosinophils Absolute Auto 0.1 K/mm3 (0-0.3); Eosinophils Percent Auto 1.4 % (0-4.4); Hematocrit 35.2 % (37.0-47.0); Hemoglobin 10.6 g/dL (12.0-15.0); Immature Granulocyte Absolute 0.05 K/mm3 (0.00-0.031); Immature Granulocyte Percent A 0.5 % (0-0.5); Lymphocytes Absolute Auto 2.12 K/mm3 (0.9-3.2); Lymphocytes Percent Auto 20.7 % (18.3-44.2); Mean Corpuscular HGB Conc 30.1 g/dl (32-36); Mean Corpuscular Hemoglobin 27.7 pg (26-34); Mean Corpuscular Volume 91.9 fl (80-100); Monocytes Absolute Auto 0.7 K/mm3 (0.1-0.6); Monocytes Percent Auto 7.1 % (2.6-8.5); Neutrophils Absolute Auto 7.2 K/mm3 (1.3-6.7); Neutrophils Percent Auto 70.2 % (45.5-73.1); Platelet Count Result 212 k/mm3 (150-375); Red Blood Count 3.83 M/mm3 (4.2-5.4); Red Cell Distribution Width 16.4 % (11.5-14.5); White Blood Count 10.2 K/mm3 (4.5-10.0)
[2024-06-21 06:22] LABS: Alanine Aminotransferase 101 U/L (6-35); Albumin Level 3.4 g/dL (3.5-5.1); Alkaline Phosphatase 98 U/L (38-126); Anion Gap 9 mmol/L (4-12); Aspartate Amino Transferase 107 U/L (14-36); Bilirubin,Total 0.4 mg/dL (0.2-1.3); Blood Urea Nitrogen 25 mg/dL (7-17); Calcium 8.3 mg/dL (8.4-10.2); Carbon Dioxide 27 mmol/L (22-30); Chloride 99 mmol/L (98-107); Estimated CRCL calculation 74 ml/min; Estimated Glomerular Filt Rate > 60; Glucose 153 mg/dL (65-110); Magnesium 2.1 mg/dL (1.6-2.3); Potassium 4.4 mmol/L (3.4-5.0); Sodium 135 mmol/L (137-145)
--- NOTE | 2024-06-21 08:51 | PCNWS ---
Weekly nutritional screen. Patient is tolerating current heart healthy diet with adequate intake 100% of meals. No weight loss reported. No nutritional recommendations at this time.
[2024-06-21 09:02] LABS: Glucose Point of Care 170 mg/dl (65-105)
[2024-06-21] MEDS: GABAPENTIN 300 MG CAPSULE 600 MG PO ×3 (09:23→17:30)
[2024-06-21] MEDS: APIXABAN 5 MG TABLET PO ×2 (09:27→21:31)
[2024-06-21] MEDS: busPIRone HCL 10 MG TABLET PO ×3 (09:27→17:30)
[2024-06-21] MEDS: traMADol HCL (*CRX) 50 MG TABLET PO ×4 (09:28→21:31)
[2024-06-21] MEDS: THERAPEUTIC MULTIVITAMINS/MINERALS TAB (*BKC) 1 TABLET PO (09:28)
[2024-06-21] MEDS: FUROSEMIDE 40 MG TABLET PO (09:28)
[2024-06-21] MEDS: FERROUS SULFATE 325 MG TABLET DR BY MOUTH (09:28)
[2024-06-21] MEDS: SENNOSIDES 8.6 MG TABLET PO ×2 (09:28→17:30)
[2024-06-21] MEDS: ARIPiprazole 5 MG TABLET PO (09:28)
[2024-06-21] MEDS: MEMANTINE 10 MG TABLET PO ×2 (09:28→17:30)
[2024-06-21] MEDS: PRIMIDONE 50 MG TABLET PO ×2 (09:28→17:30)
[2024-06-21] MEDS: ARIPiprazole 2 MG TABLET PO (09:28)
[2024-06-21] MEDS: CHOLECALCIFEROL 1,000 UNITS TABLET 1000 UNITS PO (09:28)
[2024-06-21] MEDS: TAMOXIFEN CITRATE (*CHEMO) 10 MG TABLET 20 MG PO (09:28)
[2024-06-21] MEDS: CYANOCOBALAMIN 250 MCG TABLET PO (09:28)
[2024-06-21] MEDS: ESCITALOPRAM OXALATE 10 MG TABLET 20 MG PO (09:28)
[2024-06-21] MEDS: methylPREDNISolone SOD SUCC 40 MG VIAL IV PUSH (09:29)
[2024-06-21] MEDS: PYRIDOXINE HCL 25 MG TABLET PO (09:29)
[2024-06-21] MEDS: PANTOPRAZOLE 40 MG TABLET PO (09:29)
--- NOTE | 2024-06-21 10:05 | P.PNCA_ITS ---
Progress Note: A&P Assessment and Plan (1) Bradycardia: Code(s): R00.1 - Bradycardia, unspecified Status: Acute Assessment and Plan: On telemetry she appears to be in a junctional rhythm with retrograde p waves, rate generally in the 40's. She does have some intermittent drops into the 30's. She does not appear to be symptomatic with this, though she only gets out of bed to a wheelchair by christopher lift, so difficult to assess for ambulatory symptoms. Continue to hold amiodarone and metoprolol. If she becomes more bradycardic or hypotensive we could transcutaneously pace or start on dopamine drip. If her heart rate does not increase after withholding amio and metoprolol, may consider pacemaker implantation. I did note some paroxysmal atrial flutter on telemetry but rate controlled while in AF. We will continue to follow her telemetry while she is hospitalized. Please call with any questions or concerns. (2) Shortness of breath: Code(s): R06.02 - Shortness of breath Status: Acute Assessment and Plan: Secondary to COPD, COVID/pneumonia. On supplemental oxygen. Management per hospitalist. (3) Atypical chest pain: Code(s): R07.89 - Other chest pain Status: Acute Assessment and Plan: Left upper chest tenderness that is reproducible by palpation. This does not seem to be cardiac in nature. No further workup recommended in this regard at this time. (4) Pneumonia: Code(s): J18.9 - Pneumonia, unspecified organism Status: Acute Assessment and Plan: On abx, supplemental O2 per hospitalist. (5) COPD (chronic obstructive pulmonary disease): Qualifiers: COPD type: COPD with acute lower respiratory infection Qualified Code(s): J44.0 - Chronic obstructive pulmonary disease with (acute) lower respiratory infection Code(s): J44.9 - Chronic obstructive pulmonary disease, unspecified Status: Acute Assessment and Plan: Per hospitalist. (6) Atrial fibrillation: Code(s): I48.91 - Unspecified atrial fibrillation Status: Chronic Assessment and Plan: Holding amiodarone and metoprolol. Continue a/c for cardioembolic risk reduction. Subjective Date/time seen: 06/21/24 10:05 Interval history: Cardiology follow-up for bradycardia, atrial fibrillation Patient's heart rate has mildly increased on average over the past 24 hours. She denies any chest pain, shortness of breath, palpitations. Feeling okay today overall just tired. Review of Systems Review of Systems: All systems reviewed & are unremarkable except as noted in HPI and below Exam Const: General: comfortable, no acute distress, alert and awake Orientation/consciousness: patient oriented x3 HENMT: Head: normal to inspection Eyes: General: appearance normal, both eyes and all related structures Pupils: Equal, round and reactive pupils present Neck: Neck: normal visual inspection, supple and no JVD Carotids: normal carotid upstroke Resp: Effort & Inspection: normal respiratory effort Auscultation: not clear to auscultation bilaterally, rhonchi and wheezes Cardio: Rate: bradycardic Rhythm: regular rhythm Heart sounds: S1 normal heart sound present, S2 normal heart sound present and no murmurs GI: Auscultation: normal bowel sounds Skin: General skin exam: normal color Neuro: General: patient oriented x3 Cranial nerves: Yes Equal, round and reactive pupils present Extrem: General: normal to inspection Other: mild bilateral lower extremity edema Psych: Appearance: grossly normal Mental Status: mental status grossly normal Objective Data Vital Signs Vital Signs: Vital Signs - 24 hr 06/20/24 12:00 06/20/24 14:27 06/20/24 14:55 Temperature 36.6 C Pulse Rate 46 L 48 L 48 L Respiratory Rate 19 20 Blood Pressure 106/61 Pulse Oximetry 100 Oxygen Delivery Oxygen Flow Rate 06/20/24 15:05 06/20/24 16:00 06/20/24 19:49 Temperature Pulse Rate 47 L 49 L 49 L Respiratory Rate 20 20 Blood Pressure Pulse Oximetry Oxygen Delivery Oxygen Flow Rate 06/20/24 19:57 06/20/24 20:00 06/20/24 20:00 Temperature Pulse Rate 48 L 51 L 51 L Respiratory Rate 20 20 Blood Pressure Pulse Oximetry 96 Oxygen Delivery Nasal Cannula Oxygen Flow Rate 3 06/20/24 21:45 06/21/24 00:00 06/21/24 02:07 Temperature 36.6 C Pulse Rate 51 L 45 L 66 Respiratory Rate 20 20 Blood Pressure 100/48 L Pulse Oximetry 96 Oxygen Delivery Oxygen Flow Rate 06/21/24 02:18 06/21/24 04:00 06/21/24 05:50 Temperature 36.6 C Pulse Rate 63 48 L 48 L Respiratory Rate 20 20 Blood Pressure 98/50 L Pulse Oximetry 99 Oxygen Delivery Oxygen Flow Rate 06/21/24 09:21 06/21/24 09:27 06/21/24 09:29 Temperature Pulse Rate 50 L 45 L Respiratory Rate 20 Blood Pressure 101/55 L Pulse Oximetry 100 98 Oxygen Delivery Nasal Cannula Oxygen Flow Rate 3 06/21/24 09:31 Temperature Pulse Rate 45 L Respiratory Rate 20 Blood Pressure Pulse Oximetry Oxygen Delivery Oxygen Flow Rate Intake/Output Intake/Output: Intake & Output 06/18/24 06/19/24 06/20/24 06/21/24 23:59 23:59 23:59 23:59 Intake Total 973 937 5695 240 Output Total 2200 900 1000 450 Balance -1270 70 620 -210 Meds/Results Medications: Active Medications Generic Name Dose Route Start Last Admin Trade Name Freq PRN Reason Stop Dose Admin Acetaminophen 650 mg 06/14/24 03:30 06/21/24 05:26 Acetaminophen 325 Mg Tablet PO 650 mg Q4H PRN Administration Mild Pain (1-3) or Fever Acetaminophen 650 mg 06/14/24 07:59 Acetaminophen 325 Mg Tablet BY MOUTH Q6H PRN Pain Rated 1-3 Al Hydrox/Mg Hydrox/Simethicone 5 ml 06/14/24 07:47 Mag Hydrox/Al Hydrox/Simeth 30 Ml Udc PO Q6H PRN Heartburn Albuterol 2.5 mg 06/14/24 07:46 Albuterol Sulfate Neb 2.5 Mg/3 Ml Inh INHALATION Q4HRT PRN Shortness Of Breath Albuterol/Ipratropium 3 ml 06/14/24 04:50 Ipratropium 0.5 Mg/Albuterol Sulfate 2.5 Mg Ampul.Neb 3 Ml INHALATION Q4HRT PRN shortness of breath/Wheezing Amiodarone HCl 200 mg 06/14/24 09:00 06/20/24 08:40 Amiodarone Hcl 200 Mg Tablet PO 200 mg DAILY NICOLE Administration Apixaban 5 mg 06/14/24 09:00 06/21/24 09:27 Apixaban 5 Mg Tablet PO 5 mg Q12HR NICOLE Administration Aripiprazole 5 mg 06/14/24 09:00 06/21/24 09:28 Aripiprazole 5 Mg Tablet PO 5 mg DAILY NICOLE Administration Aripiprazole 2 mg 06/14/24 09:00 06/21/24 09:28 Aripiprazole 2 Mg Tablet PO 2 mg DAILY NICOLE Administration Benzocaine 1 lozenge 06/21/24 04:33 06/21/24 05:26 Benzocaine/Menthol (*Bkc) 18 Ea Lozenge PO 1 lozenge PRN PRN Administration Sore Throat Buspirone HCl 10 mg 06/14/24 09:00 06/21/24 09:27 Buspirone Hcl 10 Mg Tablet PO 10 mg TID NICOLE Administration Calcium Carbonate 400 mg 06/14/24 07:47 Calcium Carbonate (Tums) 500 Mg (200 Mg Elemental) PO Q8H PRN Heartburn Cyanocobalamin 250 mcg 06/14/24 09:00 06/21/24 09:28 Cyanocobalamin 250 Mcg Tablet PO 250 mcg DAILY NICOLE Administration Dextrose 12.5 gm 06/14/24 07:48 Dextrose 50% 25 Gm/50 Ml Syringe IV PUSH PRN PRN Hypoglycemia Protocol Escitalopram Oxalate 20 mg 06/14/24 09:00 06/21/24 09:28 Escitalopram Oxalate 10 Mg Tablet PO 20 mg DAILY NICOLE Administration Ferrous Sulfate 325 mg 06/14/24 09:00 06/21/24 09:28 Ferrous Sulfate [address] BY MOUTH 325 mg DAILY NICOLE Administration Furosemide 40 mg 06/14/24 09:00 06/21/24 09:28 Furosemide 40 Mg Tablet PO 40 mg DAILY NICOLE Administration Gabapentin 600 mg 06/14/24 09:00 06/21/24 09:23 Gabapentin 300 Mg Capsule PO 600 mg TID NICOLE Administration Glucagon 1 mg 06/14/24 07:48 Glucagon For Inj 1 Mg Vial IM PRN PRN Hypoglycemia Protocol Glucose 15 gm 06/14/24 07:48 Glucose Oral Gel 15 Gm Of Glucse In 37.5 Gm Tube PO PRN PRN Hypoglycemia Protocol Guaifenesin/Dextromethorphan 10 ml 06/14/24 04:50 06/20/24 12:25 Guaifenesin/Dextromethorphan 10 Ml Udc PO 10 ml Q4H PRN Administration Cough Dextrose 1,000 mls @ 100 mls/hr 06/14/24 07:48 Dextrose 5% 1,000 Ml IVPB PRN PRN Hypoglycemia Protocol Insulin Aspart 2 - 5 units 06/14/24 08:00 06/21/24 09:17 Insulin Aspart (*Bkc) 100 Units/Ml SUB-Q Not Given TIDWM [facility] Protocol Insulin Aspart 1 - 2 units 06/14/24 21:00 06/20/24 22:00 Insulin Aspart (*Bkc) 100 Units/Ml SUB-Q Not Given HS NICOLE Protocol Levalbuterol HCl 1.25 mg 06/17/24 14:00 06/21/24 09:27 Levalbuterol Neb 1.25 Mg/3 Ml INHALATION 1.25 mg Q6HRT NICOLE Administration Lorazepam 0.5 mg 06/14/24 21:00 06/20/24 20:32 Lorazepam (*Crx) 0.5 Mg Tablet PO 0.5 mg QHS NICOLE Administration Losartan Potassium 12.5 mg 06/14/24 09:00 06/20/24 10:02 Losartan Potassium 12.5 Mg Tablet PO Not Given DAILY NICOLE Magnesium Hydroxide 30 ml 06/14/24 08:03 06/17/24 17:37 Magnesium Hydroxide Susp 30 Ml Udc PO 30 ml Q6H PRN Administration Constipation Melatonin 5 mg 06/14/24 04:50 06/17/24 20:29 Melatonin 5 Mg Tablet PO 5 mg HS PRN Administration Insomnia Memantine 10 mg 06/14/24 09:00 06/21/24 09:28 Memantine 10 Mg Tablet PO 10 mg BID NICOLE Administration Methylprednisolone Sodium Succinate 40 mg 06/19/24 09:00 06/21/24 09:29 Methylprednisolone Sod Succ 40 Mg Vial IV PUSH 40 mg DAILY NICOLE Administration Metoprolol Tartrate 6.25 mg 06/14/24 09:00 06/19/24 16:37 Metoprolol Tartrate 6.25 Mg Tablet PO 6.25 mg BID NICOLE Administration Multivitamins/Calcium 1 tablet 06/14/24 09:00 06/21/24 09:28 Therapeutic Multivitamins/Minerals Tab (*Bkc) PO 1 tablet DAILY NICOLE Administration Ondansetron HCl 4 mg 06/14/24 03:30 Ondansetron Inj 4 Mg/2 Ml Vial IV PUSH Q4H PRN Nausea Pantoprazole Sodium 40 mg 06/14/24 09:00 06/21/24 09:29 Pantoprazole 40 Mg Tablet PO 40 mg QAM NICOLE Administration Polyethylene Glycol 17 gm 06/14/24 07:47 Polyethylene Glycol 3350 17 Gm Powd.Pack PO HS PRN Constipation Primidone 50 mg 06/14/24 09:00 06/21/24 09:28 Primidone 50 Mg Tablet PO 50 mg BID NICOLE Administration Prochlorperazine Edisylate 10 mg 06/14/24 04:50 Prochlorperazine Edisylate 10 Mg/2 Ml Vial IV PUSH Q6H PRN Nausea And Vomiting Pyridoxine HCl 25 mg 06/14/24 09:00 06/21/24 09:29 Pyridoxine Hcl 25 Mg Tablet PO 25 mg DAILY NICOLE Administration Ropinirole HCl 0.5 mg 06/14/24 21:00 06/20/24 20:32 Ropinirole Hcl 0.5 Mg Tablet PO 0.5 mg QHS NICOLE Administration Senna 8.6 mg 06/14/24 09:00 06/21/24 09:28 Sennosides 8.6 Mg Tablet PO 8.6 mg BID NICOLE Administration Tamoxifen Citrate 20 mg 06/14/24 09:00 06/21/24 09:28 Tamoxifen Citrate (*Chemo) 10 Mg Tablet PO 07/14/24 08:59 20 mg DAILY NICOLE Administration Tramadol HCl 50 mg 06/14/24 09:00 06/21/24 09:28 Tramadol Hcl (*Crx) 50 Mg Tablet PO 50 mg QID NICOLE Administration Trazodone HCl 50 mg 06/14/24 21:00 06/20/24 20:32 Trazodone Hcl 50 Mg Tablet PO 50 mg QHS NICOLE Administration Vitamin D 1,000 units 06/14/24 09:00 06/21/24 09:28 Cholecalciferol 1,000 Units Tablet PO 1,000 units DAILY NICOLE Administration Radiology Results: ITS Impressions Chest X-Ray 06/14/24 05:45 Impression: Small right pleural effusion with probable right basilar atelectasis versus pneumonia. Correlate clinically. Left-sided Mediport. Chest CT 06/14/24 14:41 IMPRESSION: 1. Severe emphysema. 2. Cirrhosis of the liver. 3. Chronic small pericardial effusion. Labs Labs: Laboratory Results - last 24 hr 06/20/24 06/20/24 06/20/24 12:13 17:08 21:49 WBC RBC Hgb Hct MCV MCH MCHC RDW Plt Count MPV Immature Gran % (Auto) Neut % (Auto) Lymph % (Auto) [place] % (Auto) Eos % (Auto) Baso % (Auto) Lymph # (Auto) [place] # (Auto) Eos # (Auto) Baso # (Auto) Abs Immat Gran (auto) Absolute Neuts (auto) Absolute Nucleated RBC Nucleated RBC % Sodium Potassium Chloride Carbon Dioxide Anion Gap BUN Creatinine Estim Creat Clear Calc Estimated GFR Glucose POC Capillary Glucose 120 H 191 H 195 H Calcium Magnesium Total Bilirubin AST ALT Alkaline Phosphatase Total Protein Albumin 06/21/24 06/21/24 05:32 08:59 WBC 10.2 H RBC 3.83 L Hgb 10.6 L Hct 35.2 L MCV 91.9 MCH 27.7 MCHC 30.1 L RDW 16.4 H Plt Count 212 MPV 11.0 H Immature Gran % (Auto) 0.5 Neut % (Auto) 70.2 Lymph % (Auto) 20.7 Franklin % (Auto) 7.1 Eos % (Auto) 1.4 Baso % (Auto) 0.1 L Lymph # (Auto) 2.12 Franklin # (Auto) 0.7 H Eos # (Auto) 0.1 Baso # (Auto) 0.0 Abs Immat Gran (auto) 0.05 H Absolute Neuts (auto) 7.2 H Absolute Nucleated RBC 0.000 Nucleated RBC % 0.0 Sodium 135 L Potassium 4.4 Chloride 99 Carbon Dioxide 27 Anion Gap 9 BUN 25 H Creatinine 0.71 Estim Creat Clear Calc 74 Estimated GFR > 60 Glucose 153 H POC Capillary Glucose 170 H Calcium 8.3 L Magnesium 2.1 Total Bilirubin 0.4 AST 107 H ALT 101 H Alkaline Phosphatase 98 Total Protein 6.0 L Albumin 3.4 L Quality VTE Prophylaxis VTE prophylaxis: mechanical ordered and pharmacologic ordered
--- NOTE | 2024-06-21 10:14 | P.PNIM_ITS ---
Progress Note: A&P Assessment and Plan (1) Shortness of breath: Code(s): R06.02 - Shortness of breath Status: Acute Assessment and Plan: 06/14/24: * Etiology PNA vs. Atelectasis vs. Right Pleural Effusion vs. COPD exacerbation * Telemetry * Continue to monitor and trend VS and labs. * CXR was reviewed independently by myself. Will obtain CT chest to further delineate among atelectasis vs. PNA vs other etiologies. * Interim continuation of Duonebs Q6, prn Albuterol Q4 hrs, Rocephin and Doxy, Solumedrol and Furosemide. * Once results of CT available, de-escalate meds for treatment and supportive care as appropriate. * Continue NC at 4L for oxygen supplementation support. * Incentive Spirometer 06/15/24: * Interim continuation of Duonebs Q6, prn Albuterol Q4 hrs, Rocephin and Doxy, Solumedrol and Furosemide. * Chest CT- IMPRESSION: 1. Severe emphysema. 2. Cirrhosis of the liver. 3. Chronic small pericardial effusion. * 02@3LNC with Sa02 96%. * Incentive spirometer. 06/16/24: * Interim continuation of Duonebs Q6, prn Albuterol Q4 hrs, Rocephin and Doxy, Solumedrol and Furosemide. * 02@3LNC with Sa02 95%. * Incentive spirometer. 06/17/24: * Interim continuation of prn Albuterol Q4 hrs, Rocephin and Doxy, Solumedrol and Furosemide. Change duoneb to Levalbuterol neb q 6. * 02@3LNC with Sa02 94%. * Incentive spirometer. 06/18/24: * Interim continuation of Levalbuterol neb q 6, prn Albuterol Q4 hrs, Rocephin and Doxy, Solumedrol (decreased to daily) and Furosemide. * 02@3LNC with Sa02 100%. * Incentive spirometer 06/19/24: * Interim continuation of Levalbuterol neb q 6, prn Albuterol Q4 hrs, Rocephin and Doxy, Solumedrol (decreased to daily) and Furosemide. * 02@3LNC with Sa02 100%. * Incentive spirometer 06/20/24: * Interim continuation of Levalbuterol neb q 6, prn Albuterol Q4 hrs, Doxy, Solumedrol daily, and Furosemide. Completed Ceftriaxone. * 02@3LNC with Sa02 98%. * Incentive spirometer. 06/21/24: * . Interim continuation of Levalbuterol neb q 6, prn Albuterol Q4 hrs, Solumedrol daily, and Furosemide. Completed Ceftriaxone and Doxy. * 02@3LNC with Sa02 98%. * Incentive spirometer. (2) Pneumonia: Code(s): J18.9 - Pneumonia, unspecified organism Status: Acute Assessment and Plan: 06/14/24: * Obtain CT to further determine if this is the causative etiology of Dyspnea. * Continue Doxy and Rocephin for now. * Continue Duonebs and Albuterol. 06/15/24: * Interim continuation of Duonebs Q6, prn Albuterol Q4 hrs, Rocephin and Doxy, Solumedrol and Furosemide. * Chest CT- IMPRESSION: 1. Severe emphysema. 2. Cirrhosis of the liver. 3. Chronic small pericardial effusion. * 02@3LNC with Sa02 95%. * Incentive spirometer. 06/16/24: * Interim continuation of Duonebs Q6, prn Albuterol Q4 hrs, Rocephin and Doxy, Solumedrol and Furosemide. * 02@3LNC with Sa02 95%. * Incentive spirometer. 06/18/24: * Interim continuation of Levalbuterol neb q 6, prn Albuterol Q4 hrs, Rocephin and Doxy, Solumedrol (decreased to daily) and Furosemide. * 02@3LNC with Sa02 100%. * Incentive spirometer 06/19/24: * Interim continuation of Levalbuterol neb q 6, prn Albuterol Q4 hrs, Rocephin and Doxy, Solumedrol (decreased to daily) and Furosemide. * 02@3LNC with Sa02 100%. * Incentive spirometer 06/20/24: * Interim continuation of Levalbuterol neb q 6, prn Albuterol Q4 hrs, Doxy, Solumedrol daily, and Furosemide. Completed Ceftriaxone. * 02@3LNC with Sa02 98%. * incentive spirometer. 06/21/24: * Interim continuation of Levalbuterol neb q 6, prn Albuterol Q4 hrs, Solumedrol daily, and Furosemide. Completed Ceftriaxone and Doxy. * 02@3LNC with Sa02 98%. * incentive spirometer. (3) Chronic hypoxic respiratory failure, on home oxygen therapy: Code(s): J96.11 - Chronic respiratory failure with hypoxia; Z99.81 - Dependence on supplemental oxygen Status: Chronic Assessment and Plan: 06/14/24: * Chronic 3L supplemental oxygen at home. * Monitor oxygenation. 06/15/24: * 02@3LNC with Sa02 96%. 06/16/24: * 02@3LNC with Sa02 95%. 06/17/24: * 02@3LNC with Sa02 95%. 06/18/24: * 02@3LNC with Sa02 100%. 06/19/24: * 02@3LNC with Sa02 100%. 06/20/24: * 02@3LNC with Sa02 98%. 06/21/24: * 02@3LNC with Sa02 98%. (4) Acute and chronic respiratory failure with hypoxia: Code(s): J96.21 - Acute and chronic respiratory failure with hypoxia Status: Acute Assessment and Plan: 06/14/24: * See Above. (5) CHF (congestive heart failure): Code(s): I50.9 - Heart failure, unspecified Status: Acute Assessment and Plan: 06/14/24: * Last ECHO 12/2023 w/EF of 35%, [place] Cardiomyopathy pattern, and Grade 1 Diastolic Dysfunction * Obtain new ECHO given possible exacerbation of CHF. * Continue Lasix 40 mg BID IVP for now based on findings of CXR. * Obtain CT Chest with contrast. 06/15/24: * Echocardiogram 06/14/24: Summary 1. Definity contrast administered improved wall motion interpretation. 2. Left ventricular chamber dimension is normal. 3. Left ventricular systolic function is normal, estimated at 65-70%. 4. There is moderate concentric increased left ventricular wall thickness. 5. The left ventricular diastolic function is abnormal. 6. E/e' 12 is mildly elevated. 7. The aortic valve is not well visualized. Cannot determine number of aortic valve leaflets. 8. There is moderate aortic valve sclerosis. 9. There is moderate aortic valve stenosis with a peak velocity of 302 cm/s, mean gradient of 17 mmHg, and aortic valve area of 1.2 cm2. 10. Moderate pulmonary hypertension, estimated pulmonary arterial systolic pressure is 50 mmHg. 06/16/24: * Lasix 40 mg PO daily. 06/17/24: * Lasix 40 mg PO daily. 06/18/24: * Lasix 40 mg PO daily. 06/19/24: * Lasix 40 mg PO daily. 06/20/24: * Lasix 40 mg PO daily. 06/21/24: * Lasix 40 mg PO daily. (6) Bradycardia: Code(s): R00.1 - Bradycardia, unspecified Status: Acute Assessment and Plan: * Patient heart rate dropped into 30's last evening. Patient was given Atropine. * Currently afib 48 . * Cardiology consult, appreciate recommendations. * Holding Amiodarone and Metoprolol. * Per cardiology: she appears to be in a junctional rhythm with retrograde p waves, rate generally in the 40's. She does have some intermittent drops into the 30's. She does not appear to be symptomatic with this, though she only gets out of bed to a wheelchair by christopher lift, so difficult to assess for ambulatory symptoms. She takes amiodarone and metoprolol for her atrial fibrillation, so will hold these medications for now and observe her heart rate/rhythm on telemetry. If she becomes more bradycardic or hypotensive we could transcutaneously pace or start on dopamine drip. If her heart rate does not increase after withholding amio and metoprolol, may consider pacemaker implantation. (7) Atrial fibrillation: Code(s): I48.91 - Unspecified atrial fibrillation Status: Chronic Assessment and Plan: 06/14/24: * Continue Amiodarone * Continue rate control with Metoprolol * Continue Eliquis * Telemetry 06/15/24: * Continue Amiodarone * Continue rate control with Metoprolol * Continue Eliquis * Telemetry 06/16/24: * Continue Amiodarone * Continue rate control with Metoprolol * Continue Eliquis * Telemetry 06/17/24: * Held Amiodarone and Metoprolol this morning due to heart rate of 40. * Continue Eliquis * Telemetry 06/18/24: * Continue Amiodarone * Continue rate control with Metoprolol * Continue Eliquis * Telemetry 06/19/24: * Continue Amiodarone * Continue rate control with Metoprolol * Continue Eliquis * Telemetry 06/20/24: * Hold Metoprolol and Amiodarone due to bradycardia. * Continue Eliquis * Telemetry * Cardiology consulted, appreciate recommendations. 06/21/24: * Hold Metoprolol and Amiodarone due to bradycardia. * Continue Eliquis * Telemetry * Cardiology consulted, appreciate recommendations. (8) COVID: Code(s): U07.1 - COVID-19 Status: Acute Assessment and Plan: * Covid positive on 06/19/24. * Manage symptoms. (9) Chronic anticoagulation: Code(s): Z79.01 - halfway (current) use of anticoagulants Status: Chronic Assessment and Plan: 06/14/24: * Continue Eliquis 06/15/24: * Continue Eliquis 06/16/24: * Continue Eliquis 06/17/24: * Continue Eliquis 06/18/24: * Continue Eliquis 06/19/24: * Continue Eliquis 06/20/24: * Continue Eliquis 06/21/24: * Continue Eliquis (10) Diabetes: Qualifiers: Diabetes mellitus type: type 2 Diabetes mellitus half-way insulin use: without ferry terminal supervisor use Diabetes mellitus complication status: without complication Qualified Code(s): E11.9 - Type 2 diabetes mellitus without complications Code(s): E11.9 - Type 2 diabetes mellitus without complications Status: Acute Assessment and Plan: 06/14/24: * SSI * Hypoglycemic protocol * Heart Healthy diet * Check A1C 06/15/24: * HgbA1C 5.8% 06/16/24: * SSI * Hypoglycemic protocol * Heart Healthy diet 06/17/24: * SSI * Hypoglycemic protocol * Heart Healthy diet 06/18/24: * SSI * Hypoglycemic protocol * Heart Healthy diet 06/19/24: * SSI * Hypoglycemic protocol * Heart Healthy diet 06/20/24: * SSI * Hypoglycemic protocol * Heart Healthy diet 06/21/24: * Blood sugars 170-181. * SSI * Hypoglycemic protocol * Heart Healthy diet (11) Hallucinations: Code(s): R44.3 - Hallucinations, unspecified Status: Acute Assessment and Plan: 06/14/24: * Suspect degree of dementia associated with. * Continue Namenda and Abilify. (12) Chronic pain: Code(s): G89.29 - Other chronic pain Status: Acute Assessment and Plan: 06/14/24: * Continue Home Tramadol. (13) Restless leg syndrome: Code(s): G25.81 - Restless legs syndrome Status: Acute Assessment and Plan: 06/14/24: * Continue Requip and Ativan as home meds. (14) Transaminitis: Code(s): R74.01 - Elevation of levels of liver transaminase levels Status: Chronic Assessment and Plan: 06/14/24: * Pt asymptomatic. * Review of EMR shows chronically elevated transaminases. (15) Abnormality of gait and mobility: Code(s): R26.9 - Unspecified abnormalities of gait and mobility Status: Chronic Assessment and Plan: 06/14/24: * At baseline pt has weakness and difficulty in moving her BLE. She states she has always had difficulty since she took Chemotherapy for her Breast CA and it has left her basically W/C bound and she relies on a christopher lift. * No new focal deficits. Subjective Date/time seen: 06/21/24 10:14 Interval history: Patient reports a headache that is a 7 , frequent, and aching. Patient denies chest pain, palpitations, dizziness, nausea, or vomiting. Review of Systems Review of Systems: All systems reviewed & are unremarkable except as noted in HPI and below Exam Const: General: no acute distress and uncomfortable Resp: Effort & Inspection: normal respiratory effort Auscultation: rhonchi and wheezes Cardio: Rate: bradycardic Other: Telemetry Afib 48 GI: GI Palp: Yes Soft to palpation Auscultation: normal bowel sounds Neuro: Speech: normal speech Extrem: General: pedal edema bilaterally (trace edema) Psych: Mental Status: mental status grossly normal Affect: normal affect Objective Data Vital Signs Vital Signs: Vital Signs - 24 hr 06/20/24 12:00 06/20/24 14:27 06/20/24 14:55 Temperature 97.8 F Pulse Rate 46 L 48 L 48 L Respiratory Rate 19 20 Blood Pressure 106/61 Pulse Oximetry 100 Oxygen Delivery Oxygen Flow Rate 06/20/24 15:05 06/20/24 16:00 06/20/24 19:49 Temperature Pulse Rate 47 L 49 L 49 L Respiratory Rate 20 20 Blood Pressure Pulse Oximetry Oxygen Delivery Oxygen Flow Rate 06/20/24 19:57 06/20/24 20:00 06/20/24 20:00 Temperature Pulse Rate 48 L 51 L 51 L Respiratory Rate 20 20 Blood Pressure Pulse Oximetry 96 Oxygen Delivery Nasal Cannula Oxygen Flow Rate 3 06/20/24 21:45 06/21/24 00:00 06/21/24 02:07 Temperature 98 F Pulse Rate 51 L 45 L 66 Respiratory Rate 20 20 Blood Pressure 100/48 L Pulse Oximetry 96 Oxygen Delivery Oxygen Flow Rate 06/21/24 02:18 06/21/24 04:00 06/21/24 05:50 Temperature 98 F Pulse Rate 63 48 L 48 L Respiratory Rate 20 20 Blood Pressure 98/50 L Pulse Oximetry 99 Oxygen Delivery Oxygen Flow Rate 06/21/24 09:21 06/21/24 09:27 06/21/24 09:29 Temperature Pulse Rate 50 L 45 L Respiratory Rate 20 Blood Pressure 101/55 L Pulse Oximetry 100 98 Oxygen Delivery Nasal Cannula Oxygen Flow Rate 3 06/21/24 09:31 Temperature Pulse Rate 45 L Respiratory Rate 20 Blood Pressure Pulse Oximetry Oxygen Delivery Oxygen Flow Rate Intake/Output Intake/Output: Intake & Output 06/18/24 06/19/24 06/20/24 06/21/24 23:59 23:59 23:59 23:59 Intake Total 508 588 4721 240 Output Total 2200 900 1000 450 Balance -1270 70 620 -210 Meds/Results Medications: Active Medications Generic Name Dose Route Start Last Admin Trade Name Freq PRN Reason Stop Dose Admin Acetaminophen 650 mg 06/14/24 03:30 06/21/24 05:26 Acetaminophen 325 Mg Tablet PO 650 mg Q4H PRN Administration Mild Pain (1-3) or Fever Acetaminophen 650 mg 06/14/24 07:59 Acetaminophen 325 Mg Tablet BY MOUTH Q6H PRN Pain Rated 1-3 Al Hydrox/Mg Hydrox/Simethicone 5 ml 06/14/24 07:47 Mag Hydrox/Al Hydrox/Simeth 30 Ml Udc PO Q6H PRN Heartburn Albuterol 2.5 mg 06/14/24 07:46 Albuterol Sulfate Neb 2.5 Mg/3 Ml Inh INHALATION Q4HRT PRN Shortness Of Breath Albuterol/Ipratropium 3 ml 06/14/24 04:50 Ipratropium 0.5 Mg/Albuterol Sulfate 2.5 Mg Ampul.Neb 3 Ml INHALATION Q4HRT PRN shortness of breath/Wheezing Amiodarone HCl 200 mg 06/14/24 09:00 06/20/24 08:40 Amiodarone Hcl 200 Mg Tablet PO 200 mg DAILY NICOLE Administration Apixaban 5 mg 06/14/24 09:00 06/21/24 09:27 Apixaban 5 Mg Tablet PO 5 mg Q12HR NICOLE Administration Aripiprazole 5 mg 06/14/24 09:00 06/21/24 09:28 Aripiprazole 5 Mg Tablet PO 5 mg DAILY NICOLE Administration Aripiprazole 2 mg 06/14/24 09:00 06/21/24 09:28 Aripiprazole 2 Mg Tablet PO 2 mg DAILY NICOLE Administration Benzocaine 1 lozenge 06/21/24 04:33 06/21/24 05:26 Benzocaine/Menthol (*Bkc) 18 Ea Lozenge PO 1 lozenge PRN PRN Administration Sore Throat Buspirone HCl 10 mg 06/14/24 09:00 06/21/24 09:27 Buspirone Hcl 10 Mg Tablet PO 10 mg TID NICOLE Administration Calcium Carbonate 400 mg 06/14/24 07:47 Calcium Carbonate (Tums) 500 Mg (200 Mg Elemental) PO Q8H PRN Heartburn Cyanocobalamin 250 mcg 06/14/24 09:00 06/21/24 09:28 Cyanocobalamin 250 Mcg Tablet PO 250 mcg DAILY NICOLE Administration Dextrose 12.5 gm 06/14/24 07:48 Dextrose 50% 25 Gm/50 Ml Syringe IV PUSH PRN PRN Hypoglycemia Protocol Escitalopram Oxalate 20 mg 06/14/24 09:00 06/21/24 09:28 Escitalopram Oxalate 10 Mg Tablet PO 20 mg DAILY NICOLE Administration Ferrous Sulfate 325 mg 06/14/24 09:00 06/21/24 09:28 Ferrous Sulfate [address] BY MOUTH 325 mg DAILY NICOLE Administration Furosemide 40 mg 06/14/24 09:00 06/21/24 09:28 Furosemide 40 Mg Tablet PO 40 mg DAILY NICOLE Administration Gabapentin 600 mg 06/14/24 09:00 06/21/24 09:23 Gabapentin 300 Mg Capsule PO 600 mg TID NICOLE Administration Glucagon 1 mg 06/14/24 07:48 Glucagon For Inj 1 Mg Vial IM PRN PRN Hypoglycemia Protocol Glucose 15 gm 06/14/24 07:48 Glucose Oral Gel 15 Gm Of Glucse In 37.5 Gm Tube PO PRN PRN Hypoglycemia Protocol Guaifenesin/Dextromethorphan 10 ml 06/14/24 04:50 06/20/24 12:25 Guaifenesin/Dextromethorphan 10 Ml Udc PO 10 ml Q4H PRN Administration Cough Dextrose 1,000 mls @ 100 mls/hr 06/14/24 07:48 Dextrose 5% 1,000 Ml IVPB PRN PRN Hypoglycemia Protocol Insulin Aspart 2 - 5 units 06/14/24 08:00 06/21/24 09:17 Insulin Aspart (*Bkc) 100 Units/Ml SUB-Q Not Given TIDWM NICOLE Protocol Insulin Aspart 1 - 2 units 06/14/24 21:00 06/20/24 22:00 Insulin Aspart (*Bkc) 100 Units/Ml SUB-Q Not Given HS NICOLE Protocol Levalbuterol HCl 1.25 mg 06/17/24 14:00 06/21/24 09:27 Levalbuterol Neb 1.25 Mg/3 Ml INHALATION 1.25 mg Q6HRT NICOLE Administration Lorazepam 0.5 mg 06/14/24 21:00 06/20/24 20:32 Lorazepam (*Crx) 0.5 Mg Tablet PO 0.5 mg QHS NICOLE Administration Losartan Potassium 12.5 mg 06/14/24 09:00 06/20/24 10:02 Losartan Potassium 12.5 Mg Tablet PO Not Given DAILY NICOLE Magnesium Hydroxide 30 ml 06/14/24 08:03 06/17/24 17:37 Magnesium Hydroxide Susp 30 Ml Udc PO 30 ml Q6H PRN Administration Constipation Melatonin 5 mg 06/14/24 04:50 06/17/24 20:29 Melatonin 5 Mg Tablet PO 5 mg HS PRN Administration Insomnia Memantine 10 mg 06/14/24 09:00 06/21/24 09:28 Memantine 10 Mg Tablet PO 10 mg BID NICOLE Administration Methylprednisolone Sodium Succinate 40 mg 06/19/24 09:00 06/21/24 09:29 Methylprednisolone Sod Succ 40 Mg Vial IV PUSH 40 mg DAILY INCOLE Administration Metoprolol Tartrate 6.25 mg 06/14/24 09:00 06/19/24 16:37 Metoprolol Tartrate 6.25 Mg Tablet PO 6.25 mg BID NICOLE Administration Multivitamins/Calcium 1 tablet 06/14/24 09:00 06/21/24 09:28 Therapeutic Multivitamins/Minerals Tab (*Bkc) PO 1 tablet DAILY NICOLE Administration Ondansetron HCl 4 mg 06/14/24 03:30 Ondansetron Inj 4 Mg/2 Ml Vial IV PUSH Q4H PRN Nausea Pantoprazole Sodium 40 mg 06/14/24 09:00 06/21/24 09:29 Pantoprazole 40 Mg Tablet PO 40 mg QAM NICOLE Administration Polyethylene Glycol 17 gm 06/14/24 07:47 Polyethylene Glycol 3350 17 Gm Powd.Pack PO HS PRN Constipation Primidone 50 mg 06/14/24 09:00 06/21/24 09:28 Primidone 50 Mg Tablet PO 50 mg BID NICOLE Administration Prochlorperazine Edisylate 10 mg 06/14/24 04:50 Prochlorperazine Edisylate 10 Mg/2 Ml Vial IV PUSH Q6H PRN Nausea And Vomiting Pyridoxine HCl 25 mg 06/14/24 09:00 06/21/24 09:29 Pyridoxine Hcl 25 Mg Tablet PO 25 mg DAILY NICOLE Administration Ropinirole HCl 0.5 mg 06/14/24 21:00 06/20/24 20:32 Ropinirole Hcl 0.5 Mg Tablet PO 0.5 mg QHS NICOLE Administration Senna 8.6 mg 06/14/24 09:00 06/21/24 09:28 Sennosides 8.6 Mg Tablet PO 8.6 mg BID NICOLE Administration Tamoxifen Citrate 20 mg 06/14/24 09:00 06/21/24 09:28 Tamoxifen Citrate (*Chemo) 10 Mg Tablet PO 07/14/24 08:59 20 mg DAILY NICOLE Administration Tramadol HCl 50 mg 06/14/24 09:00 06/21/24 09:28 Tramadol Hcl (*Crx) 50 Mg Tablet PO 50 mg QID NICOLE Administration Trazodone HCl 50 mg 06/14/24 21:00 06/20/24 20:32 Trazodone Hcl 50 Mg Tablet PO 50 mg QHS NICOLE Administration Vitamin D 1,000 units 06/14/24 09:00 06/21/24 09:28 Cholecalciferol 1,000 Units Tablet PO 1,000 units DAILY NICOLE Administration Radiology Results: ITS Impressions Chest X-Ray 06/14/24 05:45 Impression: Small right pleural effusion with probable right basilar atelectasis versus pneumonia. Correlate clinically. Left-sided Mediport. Chest CT 06/14/24 14:41 IMPRESSION: 1. Severe emphysema. 2. Cirrhosis of the liver. 3. Chronic small pericardial effusion. Labs Labs: Laboratory Results - last 24 hr 06/20/24 06/20/24 06/20/24 12:13 17:08 21:49 WBC RBC Hgb Hct MCV MCH MCHC RDW Plt Count MPV Immature Gran % (Auto) Neut % (Auto) Lymph % (Auto) [place] % (Auto) Eos % (Auto) Baso % (Auto) Lymph # (Auto) [place] # (Auto) Eos # (Auto) Baso # (Auto) Abs Immat Gran (auto) Absolute Neuts (auto) Absolute Nucleated RBC Nucleated RBC % Sodium Potassium Chloride Carbon Dioxide Anion Gap BUN Creatinine Estim Creat Clear Calc Estimated GFR Glucose POC Capillary Glucose 120 H 191 H 195 H Calcium Magnesium Total Bilirubin AST ALT Alkaline Phosphatase Total Protein Albumin 06/21/24 06/21/24 05:32 08:59 WBC 10.2 H RBC 3.83 L Hgb 10.6 L Hct 35.2 L MCV 91.9 MCH 27.7 MCHC 30.1 L RDW 16.4 H Plt Count 212 MPV 11.0 H Immature Gran % (Auto) 0.5 Neut % (Auto) 70.2 Lymph % (Auto) 20.7 [place] % (Auto) 7.1 Eos % (Auto) 1.4 Baso % (Auto) 0.1 L Lymph # (Auto) 2.12 [place] # (Auto) 0.7 H Eos # (Auto) 0.1 Baso # (Auto) 0.0 Abs Immat Gran (auto) 0.05 H Absolute Neuts (auto) 7.2 H Absolute Nucleated RBC 0.000 Nucleated RBC % 0.0 Sodium 135 L Potassium 4.4 Chloride 99 Carbon Dioxide 27 Anion Gap 9 BUN 25 H Creatinine 0.71 Estim Creat Clear Calc 74 Estimated GFR > 60 Glucose 153 H POC Capillary Glucose 170 H Calcium 8.3 L Magnesium 2.1 Total Bilirubin 0.4 AST 107 H ALT 101 H Alkaline Phosphatase 98 Total Protein 6.0 L Albumin 3.4 L Quality VTE Prophylaxis VTE prophylaxis: mechanical ordered and pharmacologic ordered
[2024-06-21] MEDS: predniSONE 20 MG TABLET 40 MG PO (12:15)
[2024-06-21 13:00] LABS: Glucose Point of Care 181 mg/dl (65-105)
[2024-06-21] MEDS: MAGNESIUM HYDROXIDE SUSP 30 ML UDC PO (15:22)
[2024-06-21 16:18] LABS: Glucose Point of Care 244 mg/dl (65-105)
[2024-06-21] MEDS: INSULIN ASPART (*BKC) 100 UNITS/ML SUB-Q ×2 (17:31→21:30)
[2024-06-21] MEDS: rOPINIRole HCL 0.5 MG TABLET PO (21:31)
[2024-06-21] MEDS: LORazepam (*CRX) 0.5 MG TABLET PO (21:31)
[2024-06-21] MEDS: traZODone HCL 50 MG TABLET PO (21:35)
[2024-06-21 21:39] LABS: Glucose Point of Care 279 mg/dl (65-105)
[2024-06-22] VITALS (18 sets, daily range): BP systolic 103–125; BP diastolic 60–86; PULSE 54–66; RESP 14–18; TEMP 36.1–37.3; O2SAT 95–100
[2024-06-22] MEDS: LEVALBUTEROL NEB 1.25 MG/3 ML INHALATION ×4 (03:27→21:02)
[2024-06-22] MEDS: ACETAMINOPHEN 325 MG TABLET 650 MG PO (04:11)
[2024-06-22 05:15] LABS: Basophils Percent Auto 0.1 % (0.2-1.2); Eosinophils Percent Auto 0.3 % (0-4.4); Hematocrit 34.6 % (37.0-47.0); Hemoglobin 10.5 g/dL (12.0-15.0); Immature Granulocyte Absolute 0.06 K/mm3 (0.00-0.031); Immature Granulocyte Percent A 0.6 % (0-0.5); Lymphocytes Percent Auto 14.4 % (18.3-44.2); Mean Corpuscular HGB Conc 30.3 g/dl (32-36); Mean Corpuscular Volume 92.3 fl (80-100); Mean Platelet Volume 10.8 fl (7.4-10.4); Monocytes Absolute Auto 0.6 K/mm3 (0.1-0.6); Monocytes Percent Auto 5.6 % (2.6-8.5); Neutrophils Absolute Auto 7.7 K/mm3 (1.3-6.7); Platelet Count Result 204 k/mm3 (150-375); Red Blood Count 3.75 M/mm3 (4.2-5.4); Red Cell Distribution Width 16.4 % (11.5-14.5); White Blood Count 9.8 K/mm3 (4.5-10.0)
[2024-06-22 05:21] LABS: Alanine Aminotransferase 81 U/L (6-35); Albumin Level 3.2 g/dL (3.5-5.1); Alkaline Phosphatase 82 U/L (38-126); Anion Gap 7 mmol/L (4-12); Aspartate Amino Transferase 76 U/L (14-36); Bilirubin,Total 0.4 mg/dL (0.2-1.3); Blood Urea Nitrogen 19 mg/dL (7-17); Carbon Dioxide 31 mmol/L (22-30); Chloride 98 mmol/L (98-107); Estimated CRCL calculation 91 ml/min; Estimated Glomerular Filt Rate > 60; Glucose 105 mg/dL (65-110); Magnesium 2.2 mg/dL (1.6-2.3); Sodium 136 mmol/L (137-145)
[2024-06-22 08:10] LABS: Glucose Point of Care 104 mg/dl (65-105)
[2024-06-22] MEDS: TAMOXIFEN CITRATE (*CHEMO) 10 MG TABLET 20 MG PO (08:22)
[2024-06-22] MEDS: ARIPiprazole 5 MG TABLET PO (08:22)
[2024-06-22] MEDS: LOSARTAN POTASSIUM 12.5 MG TABLET PO (08:22)
[2024-06-22] MEDS: PANTOPRAZOLE 40 MG TABLET PO (08:22)
[2024-06-22] MEDS: CHOLECALCIFEROL 1,000 UNITS TABLET 1000 UNITS PO (08:22)
[2024-06-22] MEDS: MEMANTINE 10 MG TABLET PO ×2 (08:22→17:02)
[2024-06-22] MEDS: busPIRone HCL 10 MG TABLET PO ×3 (08:23→17:02)
[2024-06-22] MEDS: SENNOSIDES 8.6 MG TABLET PO ×2 (08:23→17:03)
[2024-06-22] MEDS: predniSONE 20 MG TABLET 40 MG PO (08:23)
[2024-06-22] MEDS: GABAPENTIN 300 MG CAPSULE 600 MG PO ×3 (08:23→17:03)
[2024-06-22] MEDS: traMADol HCL (*CRX) 50 MG TABLET PO ×4 (08:23→21:23)
[2024-06-22] MEDS: PYRIDOXINE HCL 25 MG TABLET PO (08:23)
[2024-06-22] MEDS: APIXABAN 5 MG TABLET PO ×2 (08:23→21:23)
[2024-06-22] MEDS: FERROUS SULFATE 325 MG TABLET DR BY MOUTH (08:23)
[2024-06-22] MEDS: ESCITALOPRAM OXALATE 10 MG TABLET 20 MG PO (08:23)
[2024-06-22] MEDS: CYANOCOBALAMIN 250 MCG TABLET PO (08:23)
[2024-06-22] MEDS: ARIPiprazole 2 MG TABLET PO (08:23)
[2024-06-22] MEDS: PRIMIDONE 50 MG TABLET PO ×2 (08:23→17:03)
[2024-06-22] MEDS: THERAPEUTIC MULTIVITAMINS/MINERALS TAB (*BKC) 1 TABLET PO (08:23)
[2024-06-22] MEDS: FUROSEMIDE 40 MG TABLET PO (08:23)
--- NOTE | 2024-06-22 10:40 | P.PNIM_ITS ---
Progress Note: A&P Assessment and Plan (1) Acute and chronic respiratory failure with hypoxia: Code(s): J96.21 - Acute and chronic respiratory failure with hypoxia Status: Acute Assessment and Plan: * Back to baseline 3L supplemental oxygen * Monitor oxygenation * See plan below (2) Shortness of breath: Code(s): R06.02 - Shortness of breath Status: Acute Assessment and Plan: * Etiology PNA vs. Atelectasis vs. Right Pleural Effusion vs. COPD exacerbation * Telemetry * Continue to monitor and trend VS and labs. * Interim continuation of levalbuterol q6, prn Albuterol Q4 hrs, prednisone and Furosemide * Antibiotic course completed * Continue baseline NC at 3L for oxygen supplementation support. * Incentive Spirometer (3) Pneumonia: Code(s): J18.9 - Pneumonia, unspecified organism Status: Acute Assessment and Plan: CXR: Small right pleural effusion with probable right basilar atelectasis versus pneumonia Chest CT: 1. Severe emphysema. 2. Cirrhosis of the liver. 3. Chronic small pericardial effusion. - Antibiotic course completed - Viral PCR: COVID positive - back to baseline 3L NC - Monitor vital signs, I&Os, neuro status and patient is a fall risk - Follow WBC, serum electrolytes, temperature curves and cultures (4) Bradycardia: Code(s): R00.1 - Bradycardia, unspecified Status: Acute Assessment and Plan: * Patient heart rate dropped into 30's on 3/2. Given Atropine. Remains borderline bradycardic in the 50-60s. * Holding Amiodarone and Metoprolol. * Cardiology consult, appreciate recommendations. * Per cardiology: she appears to be in a junctional rhythm with retrograde p waves, rate generally in the 40's. She does have some intermittent drops into the 30's. She does not appear to be symptomatic with this, though she only gets out of bed to a wheelchair by christopher lift, so difficult to assess for ambulatory symptoms. She takes amiodarone and metoprolol for her atrial fibrillation, so will hold these medications for now and observe her heart rate/rhythm on telemetry. If she becomes more bradycardic or hypotensive we could transcutaneously pace or start on dopamine drip. If her heart rate does not increase after withholding amio and metoprolol, may consider pacemaker implantation. (5) Atrial fibrillation: Code(s): I48.91 - Unspecified atrial fibrillation Status: Chronic Assessment and Plan: * Hold Metoprolol and Amiodarone due to bradycardia. * Continue Eliquis * Telemetry * Cardiology consulted, appreciate recommendations. (6) CHF (congestive heart failure): Code(s): I50.9 - Heart failure, unspecified Status: Acute Assessment and Plan: * Last ECHO 12/2023 w/EF of 35%, [place] Cardiomyopathy pattern, and Grade 1 Diastolic Dysfunction * Echo 06/14 w/ EF 65-70%, abnormal diastolic function, and moderate pulmonary hypertension * Lasix 40 mg PO * CXR: Small right pleural effusion with probable right basilar atelectasis versus pneumonia * Chest CT: 1. Severe emphysema. 2. Cirrhosis of the liver. 3. Chronic small pericardial effusion. * Monitor vital signs, I&Os, BUN/creatinine, daily weights, neuro status and patient is a fall risk * Monitor serum electrolytes, Keep serum Potassium>4 and serum Magnesium>2 and CBC (7) COVID: Code(s): U07.1 - COVID-19 Status: Acute Assessment and Plan: * Covid positive on 06/19/24. * Manage symptoms. (8) Diabetes: Qualifiers: Diabetes mellitus complication status: without complication Diabetes mellitus terminologist insulin use: without terminologist use Diabetes mellitus type: type 2 Qualified Code(s): E11.9 - Type 2 diabetes mellitus without complications Code(s): E11.9 - Type 2 diabetes mellitus without complications Status: Acute Assessment and Plan: - hypoglycemia protocol - POC blood glucose ACHS - home medication - metformin 500 mg daily, sliding scale insulin - correct regimen ordered - SSI - A1C 5.8 (9) Hallucinations: Code(s): R44.3 - Hallucinations, unspecified Status: Acute Assessment and Plan: * Suspect degree of dementia associated with. * Continue Namenda and Abilify. (10) Chronic pain: Code(s): G89.29 - Other chronic pain Status: Acute Assessment and Plan: * Continue Home Tramadol. (11) Abnormality of gait and mobility: Code(s): R26.9 - Unspecified abnormalities of gait and mobility Status: Chronic Assessment and Plan: * At baseline pt has weakness and difficulty in moving her BLE. She states she has always had difficulty since she took Chemotherapy for her Breast CA and it has left her basically W/C bound and she relies on a christopher lift. * No new focal deficits. Time Spent With Patient Time with patient: 25 - 35 minutes Subjective Date/time seen: 06/22/24 10:40 Interval history: Patient is pleasant lying comfortably in bed. She has been weaned back to her baseline oxygen of 3L NC. She denies feeling short of breath at this time. She continues to have borderline bradycardia on telemetry with HR ranging in the 50- 60s. She denies any chest pain, dizziness or lightheadedness. She has no other complaints. Review of Systems Review of Systems: All systems reviewed & are unremarkable except as noted in HPI and below Exam Narrative: AF HR 60 RR 14 Spo2 99 3L NC (baseline) BP 114/60 General: female in no acute respiratory distress who is nontoxic appearing, lyi ng semi recumbent in bed. HEENT: Normocephalic. Atraumatic. Extraocular movement intact. Sclera clear and anicteric. No facial asymmetry. Chest: Lungs with rhonchi to auscultation bilaterally in the bases. No wheezes CV: Heart was regular rate and rhythm. S1-S2. No murmurs, gallops, or rubs. Abd: Abdomen was soft. Nontender. Nondistended. Positive bowel sounds. No organomegaly or masses. Ext: No clubbing, cyanosis, or edema. Neuro: Patient is alert. Speech is clear. Objective Data Vital Signs Vital Signs: Vital Signs - 24 hr 06/21/24 12:00 06/21/24 14:00 06/21/24 14:34 Temperature 97.9 F Pulse Rate 62 64 62 Respiratory Rate 16 18 Blood Pressure 132/46 L Pulse Oximetry 99 Oxygen Delivery Oxygen Flow Rate 06/21/24 16:00 06/21/24 20:00 06/21/24 20:15 Temperature Pulse Rate 66 63 Respiratory Rate Blood Pressure Pulse Oximetry 99 Oxygen Delivery Nasal Cannula Oxygen Flow Rate 3 06/21/24 20:15 06/21/24 20:22 06/21/24 20:57 Temperature 97.9 F Pulse Rate 61 60 64 Respiratory Rate 18 18 18 Blood Pressure 104/61 Pulse Oximetry 99 Oxygen Delivery Oxygen Flow Rate 06/21/24 21:00 06/22/24 00:00 06/22/24 03:27 Temperature Pulse Rate 61 58 L Respiratory Rate 18 Blood Pressure Pulse Oximetry 99 Oxygen Delivery Nasal Cannula Oxygen Flow Rate 3 06/22/24 03:37 06/22/24 04:00 06/22/24 06:00 Temperature 97.0 F L Pulse Rate 63 59 L 56 L Respiratory Rate 18 16 Blood Pressure 113/86 Pulse Oximetry 100 Oxygen Delivery Oxygen Flow Rate 06/22/24 08:25 06/22/24 09:03 06/22/24 09:03 Temperature Pulse Rate 58 L Respiratory Rate 18 Blood Pressure 103/63 Pulse Oximetry 95 Oxygen Delivery Nasal Cannula Oxygen Flow Rate 3 06/22/24 09:14 Temperature Pulse Rate 64 Respiratory Rate 18 Blood Pressure Pulse Oximetry Oxygen Delivery Oxygen Flow Rate Intake/Output Intake/Output: Intake & Output 06/19/24 06/20/24 06/21/24 06/22/24 23:59 23:59 23:59 23:59 Intake Total 970 1620 720 Output Total 900 1000 1750 750 Balance 70 809 -9977 -750 Meds/Results Medications: Active Medications Generic Name Dose Route Start Last Admin Trade Name Freq PRN Reason Stop Dose Admin Acetaminophen 650 mg 06/14/24 03:30 06/22/24 04:11 Acetaminophen 325 Mg Tablet PO 650 mg Q4H PRN Administration Mild Pain (1-3) or Fever Al Hydrox/Mg Hydrox/Simethicone 5 ml 06/14/24 07:47 Mag Hydrox/Al Hydrox/Simeth 30 Ml Udc PO Q6H PRN Heartburn Albuterol 2.5 mg 06/14/24 07:46 Albuterol Sulfate Neb 2.5 Mg/3 Ml Inh INHALATION Q4HRT PRN Shortness Of Breath Albuterol/Ipratropium 3 ml 06/14/24 04:50 Ipratropium 0.5 Mg/Albuterol Sulfate 2.5 Mg Ampul.Neb 3 Ml INHALATION Q4HRT PRN shortness of breath/Wheezing Amiodarone HCl 200 mg 06/14/24 09:00 06/20/24 08:40 Amiodarone Hcl 200 Mg Tablet PO 200 mg DAILY NICOLE Administration Apixaban 5 mg 06/14/24 09:00 06/22/24 08:23 Apixaban 5 Mg Tablet PO 5 mg Q12HR NICOLE Administration Aripiprazole 5 mg 06/14/24 09:00 06/22/24 08:22 Aripiprazole 5 Mg Tablet PO 5 mg DAILY NICOLE Administration Aripiprazole 2 mg 06/14/24 09:00 06/22/24 08:23 Aripiprazole 2 Mg Tablet PO 2 mg DAILY NICOLE Administration Benzocaine 1 lozenge 06/21/24 04:33 06/21/24 05:26 Benzocaine/Menthol (*Bkc) 18 Ea Lozenge PO 1 lozenge PRN PRN Administration Sore Throat Buspirone HCl 10 mg 06/14/24 09:00 06/22/24 08:23 Buspirone Hcl 10 Mg Tablet PO 10 mg TID NICOLE Administration Calcium Carbonate 400 mg 06/14/24 07:47 Calcium Carbonate (Tums) 500 Mg (200 Mg Elemental) PO Q8H PRN Heartburn Cyanocobalamin 250 mcg 06/14/24 09:00 06/22/24 08:23 Cyanocobalamin 250 Mcg Tablet PO 250 mcg DAILY NICOLE Administration Dextrose 12.5 gm 06/14/24 07:48 Dextrose 50% 25 Gm/50 Ml Syringe IV PUSH PRN PRN Hypoglycemia Protocol Escitalopram Oxalate 20 mg 06/14/24 09:00 06/22/24 08:23 Escitalopram Oxalate 10 Mg Tablet PO 20 mg DAILY NICOLE Administration Ferrous Sulfate 325 mg 06/14/24 09:00 06/22/24 08:23 Ferrous Sulfate [address] BY MOUTH 325 mg DAILY NICOLE Administration Furosemide 40 mg 06/14/24 09:00 06/22/24 08:23 Furosemide 40 Mg Tablet PO 40 mg DAILY NICOLE Administration Gabapentin 600 mg 06/14/24 09:00 06/22/24 08:23 Gabapentin 300 Mg Capsule PO 600 mg TID NICOLE Administration Glucagon 1 mg 06/14/24 07:48 Glucagon For Inj 1 Mg Vial IM PRN PRN Hypoglycemia Protocol Glucose 15 gm 06/14/24 07:48 Glucose Oral Gel 15 Gm Of Glucse In 37.5 Gm Tube PO PRN PRN Hypoglycemia Protocol Guaifenesin/Dextromethorphan 10 ml 06/14/24 04:50 06/20/24 12:25 Guaifenesin/Dextromethorphan 10 Ml Udc PO 10 ml Q4H PRN Administration Cough Dextrose 1,000 mls @ 100 mls/hr 06/14/24 07:48 Dextrose 5% 1,000 Ml IVPB PRN PRN Hypoglycemia Protocol Insulin Aspart 2 - 5 units 06/14/24 08:00 06/22/24 08:13 Insulin Aspart (*Bkc) 100 Units/Ml SUB-Q Not Given TIDWM NICOLE Protocol Insulin Aspart 1 - 2 units 06/14/24 21:00 06/21/24 21:30 Insulin Aspart (*Bkc) 100 Units/Ml SUB-Q 1 units HS NICOLE Administration Protocol Levalbuterol HCl 1.25 mg 06/17/24 14:00 06/22/24 09:02 Levalbuterol Neb 1.25 Mg/3 Ml INHALATION 1.25 mg Q6HRT NICOLE Administration Lorazepam 0.5 mg 06/14/24 21:00 06/21/24 21:31 Lorazepam (*Crx) 0.5 Mg Tablet PO 0.5 mg QHS NICOLE Administration Losartan Potassium 12.5 mg 06/14/24 09:00 06/22/24 08:22 Losartan Potassium 12.5 Mg Tablet PO 12.5 mg DAILY NICOLE Administration Magnesium Hydroxide 30 ml 06/14/24 08:03 06/21/24 15:22 Magnesium Hydroxide Susp 30 Ml Udc PO 30 ml Q6H PRN Administration Constipation Melatonin 5 mg 06/14/24 04:50 06/17/24 20:29 Melatonin 5 Mg Tablet PO 5 mg HS PRN Administration Insomnia Memantine 10 mg 06/14/24 09:00 06/22/24 08:22 Memantine 10 Mg Tablet PO 10 mg BID NICOLE Administration Metoprolol Tartrate 6.25 mg 06/14/24 09:00 06/19/24 16:37 Metoprolol Tartrate 6.25 Mg Tablet PO 6.25 mg BID NICOLE Administration Multivitamins/Calcium 1 tablet 06/14/24 09:00 06/22/24 08:23 Therapeutic Multivitamins/Minerals Tab (*Bkc) PO 1 tablet DAILY NICOLE Administration Ondansetron HCl 4 mg 06/14/24 03:30 Ondansetron Inj 4 Mg/2 Ml Vial IV PUSH Q4H PRN Nausea Pantoprazole Sodium 40 mg 06/14/24 09:00 06/22/24 08:22 Pantoprazole 40 Mg Tablet PO 40 mg QAM NICOLE Administration Polyethylene Glycol 17 gm 06/14/24 07:47 Polyethylene Glycol 3350 17 Gm Powd.Pack PO HS PRN Constipation Prednisone 40 mg 06/22/24 08:00 06/22/24 08:23 Prednisone 20 Mg Tablet PO 40 mg DAILY@0800 NICOLE Administration Primidone 50 mg 06/14/24 09:00 06/22/24 08:23 Primidone 50 Mg Tablet PO 50 mg BID NICOLE Administration Prochlorperazine Edisylate 10 mg 06/14/24 04:50 Prochlorperazine Edisylate 10 Mg/2 Ml Vial IV PUSH Q6H PRN Nausea And Vomiting Pyridoxine HCl 25 mg 06/14/24 09:00 06/22/24 08:23 Pyridoxine Hcl 25 Mg Tablet PO 25 mg DAILY NICOLE Administration Ropinirole HCl 0.5 mg 06/14/24 21:00 06/21/24 21:31 Ropinirole Hcl 0.5 Mg Tablet PO 0.5 mg QHS NICOLE Administration Senna 8.6 mg 06/14/24 09:00 06/22/24 08:23 Sennosides 8.6 Mg Tablet PO 8.6 mg BID NICOLE Administration Tamoxifen Citrate 20 mg 06/14/24 09:00 06/22/24 08:22 Tamoxifen Citrate (*Chemo) 10 Mg Tablet PO 07/14/24 08:59 20 mg DAILY NICOLE Administration Tramadol HCl 50 mg 06/14/24 09:00 06/22/24 08:23 Tramadol Hcl (*Crx) 50 Mg Tablet PO 50 mg QID NICOLE Administration Trazodone HCl 50 mg 06/14/24 21:00 06/21/24 21:35 Trazodone Hcl 50 Mg Tablet PO 50 mg QHS NICOLE Administration Vitamin D 1,000 units 06/14/24 09:00 06/22/24 08:22 Cholecalciferol 1,000 Units Tablet PO 1,000 units DAILY NICOLE Administration Radiology Results: ITS Impressions Chest X-Ray 06/14/24 05:45 Impression: Small right pleural effusion with probable right basilar atelectasis versus pneumonia. Correlate clinically. Left-sided Mediport. Chest CT 06/14/24 14:41 IMPRESSION: 1. Severe emphysema. 2. Cirrhosis of the liver. 3. Chronic small pericardial effusion. Labs Labs: Laboratory Results - last 24 hr 06/21/24 06/21/24 06/21/24 12:42 16:15 20:29 WBC RBC Hgb Hct MCV MCH MCHC RDW Plt Count MPV Immature Gran % (Auto) Neut % (Auto) Lymph % (Auto) Moca % (Auto) Eos % (Auto) Baso % (Auto) Lymph # (Auto) Moca # (Auto) Eos # (Auto) Baso # (Auto) Abs Immat Gran (auto) Absolute Neuts (auto) Absolute Nucleated RBC Nucleated RBC % Sodium Potassium Chloride Carbon Dioxide Anion Gap BUN Creatinine Estim Creat Clear Calc Estimated GFR Glucose POC Capillary Glucose 181 H 244 H 279 H Calcium Magnesium Total Bilirubin AST ALT Alkaline Phosphatase Total Protein Albumin 06/22/24 06/22/24 04:58 08:05 WBC 9.8 RBC 3.75 L Hgb 10.5 L Hct 34.6 L MCV 92.3 MCH 28.0 MCHC 30.3 L RDW 16.4 H Plt Count 204 MPV 10.8 H Immature Gran % (Auto) 0.6 H Neut % (Auto) 79.0 H Lymph % (Auto) 14.4 L Moca % (Auto) 5.6 Eos % (Auto) 0.3 Baso % (Auto) 0.1 L Lymph # (Auto) 1.40 Moca # (Auto) 0.6 Eos # (Auto) 0.0 Baso # (Auto) 0.0 Abs Immat Gran (auto) 0.06 H Absolute Neuts (auto) 7.7 H Absolute Nucleated RBC 0.000 Nucleated RBC % 0.0 Sodium 136 L Potassium 4.0 Chloride 98 Carbon Dioxide 31 H Anion Gap 7 BUN 19 H Creatinine 0.57 L Estim Creat Clear Calc 91 Estimated GFR > 60 Glucose 105 POC Capillary Glucose 104 Calcium 8.0 L Magnesium 2.2 Total Bilirubin 0.4 AST 76 H ALT 81 H Alkaline Phosphatase 82 Total Protein 6.0 L Albumin 3.2 L Quality VTE Prophylaxis VTE prophylaxis: mechanical ordered and pharmacologic ordered
[2024-06-22 12:06] LABS: Glucose Point of Care 223 mg/dl (65-105)
[2024-06-22] MEDS: INSULIN ASPART (*BKC) 100 UNITS/ML SUB-Q ×2 (12:53→21:24)
[2024-06-22 17:00] LABS: Glucose Point of Care 184 mg/dl (65-105)
[2024-06-22 21:15] LABS: Glucose Point of Care 223 mg/dl (65-105)
[2024-06-22] MEDS: rOPINIRole HCL 0.5 MG TABLET PO (21:23)
[2024-06-22] MEDS: LORazepam (*CRX) 0.5 MG TABLET PO (21:23)
[2024-06-22] MEDS: traZODone HCL 50 MG TABLET PO (21:23)
[2024-06-22 22:03] LABS: Glucose Point of Care 180 mg/dl (65-105)
[2024-06-23] VITALS (11 sets, daily range): BP systolic 110–113; BP diastolic 59–62; PULSE 56–91; RESP 16–18; TEMP 36.5; O2SAT 100
[2024-06-23] MEDS: LEVALBUTEROL NEB 1.25 MG/3 ML INHALATION ×3 (01:48→13:27)
[2024-06-23 06:14] LABS: Basophils Percent Auto 0.1 % (0.2-1.2); Eosinophils Absolute Auto 0.1 K/mm3 (0-0.3); Eosinophils Percent Auto 0.9 % (0-4.4); Hematocrit 36.7 % (37.0-47.0); Hemoglobin 10.9 g/dL (12.0-15.0); Immature Granulocyte Absolute 0.05 K/mm3 (0.00-0.031); Immature Granulocyte Percent A 0.5 % (0-0.5); Lymphocytes Absolute Auto 1.87 K/mm3 (0.9-3.2); Lymphocytes Percent Auto 20.5 % (18.3-44.2); Mean Corpuscular HGB Conc 29.7 g/dl (32-36); Mean Corpuscular Hemoglobin 27.9 pg (26-34); Mean Corpuscular Volume 94.1 fl (80-100); Mean Platelet Volume 11.1 fl (7.4-10.4); Monocytes Absolute Auto 0.5 K/mm3 (0.1-0.6); Monocytes Percent Auto 5.9 % (2.6-8.5); Neutrophils Absolute Auto 6.6 K/mm3 (1.3-6.7); Neutrophils Percent Auto 72.1 % (45.5-73.1); Platelet Count Result 204 k/mm3 (150-375); Red Cell Distribution Width 16.8 % (11.5-14.5); White Blood Count 9.1 K/mm3 (4.5-10.0)
[2024-06-23 06:23] LABS: Alanine Aminotransferase 74 U/L (6-35); Albumin Level 3.3 g/dL (3.5-5.1); Alkaline Phosphatase 78 U/L (38-126); Anion Gap 5 mmol/L (4-12); Aspartate Amino Transferase 55 U/L (14-36); Bilirubin,Total 0.3 mg/dL (0.2-1.3); Blood Urea Nitrogen 18 mg/dL (7-17); Calcium 8.6 mg/dL (8.4-10.2); Carbon Dioxide 35 mmol/L (22-30); Chloride 98 mmol/L (98-107); Estimated CRCL calculation 81 ml/min; Estimated Glomerular Filt Rate > 60; Glucose 141 mg/dL (65-110); Magnesium 2.3 mg/dL (1.6-2.3); Potassium 4.4 mmol/L (3.4-5.0); Sodium 138 mmol/L (137-145)
[2024-06-23 06:42] LABS: Hypochromasia 1+; Platelet Estimate Adequate (Adequate)
[2024-06-23 06:43] LABS: Schistocytes None Seen
[2024-06-23 08:11] LABS: Glucose Point of Care 127 mg/dl (65-105)
[2024-06-23] MEDS: ESCITALOPRAM OXALATE 10 MG TABLET 20 MG PO (08:19)
[2024-06-23] MEDS: busPIRone HCL 10 MG TABLET PO ×2 (08:19→12:23)
[2024-06-23] MEDS: MEMANTINE 10 MG TABLET PO (08:20)
[2024-06-23] MEDS: PYRIDOXINE HCL 25 MG TABLET PO (08:20)
[2024-06-23] MEDS: FUROSEMIDE 40 MG TABLET PO (08:20)
[2024-06-23] MEDS: CYANOCOBALAMIN 250 MCG TABLET PO (08:20)
[2024-06-23] MEDS: PRIMIDONE 50 MG TABLET PO (08:20)
[2024-06-23] MEDS: ARIPiprazole 2 MG TABLET PO (08:20)
[2024-06-23] MEDS: traMADol HCL (*CRX) 50 MG TABLET PO ×2 (08:20→12:23)
[2024-06-23] MEDS: TAMOXIFEN CITRATE (*CHEMO) 10 MG TABLET 20 MG PO (08:20)
[2024-06-23] MEDS: CHOLECALCIFEROL 1,000 UNITS TABLET 1000 UNITS PO (08:20)
[2024-06-23] MEDS: SENNOSIDES 8.6 MG TABLET PO (08:20)
[2024-06-23] MEDS: THERAPEUTIC MULTIVITAMINS/MINERALS TAB (*BKC) 1 TABLET PO (08:20)
[2024-06-23] MEDS: FERROUS SULFATE 325 MG TABLET DR BY MOUTH (08:20)
[2024-06-23] MEDS: PANTOPRAZOLE 40 MG TABLET PO (08:20)
[2024-06-23] MEDS: LOSARTAN POTASSIUM 12.5 MG TABLET PO (08:20)
[2024-06-23] MEDS: ARIPiprazole 5 MG TABLET PO (08:20)
[2024-06-23] MEDS: GABAPENTIN 300 MG CAPSULE 600 MG PO ×2 (08:20→12:23)
[2024-06-23] MEDS: predniSONE 20 MG TABLET 40 MG PO (08:20)
[2024-06-23] MEDS: APIXABAN 5 MG TABLET PO (08:20)
--- NOTE | 2024-06-23 10:29 | P.DS_ITS ---
DS: Admitting Diagnosis Discharge Date 06/23/2024 Admitting Diagnosis acute on chronic respiratory failure with hypoxia shortness of breath pneumonia bradycardia afib chf covid dm hallucinations chronic pain abnormality of gait DS: Discharge Diagnosis Discharge Diagnosis (1) Acute and chronic respiratory failure with hypoxia: Code(s): J96.21 - Acute and chronic respiratory failure with hypoxia Status: Acute (2) Shortness of breath: Code(s): R06.02 - Shortness of breath Status: Acute (3) Pneumonia: Code(s): J18.9 - Pneumonia, unspecified organism Status: Acute (4) Bradycardia: Code(s): R00.1 - Bradycardia, unspecified Status: Acute (5) Atrial fibrillation: Code(s): I48.91 - Unspecified atrial fibrillation Status: Chronic (6) CHF (congestive heart failure): Code(s): I50.9 - Heart failure, unspecified Status: Acute (7) COVID: Code(s): U07.1 - COVID-19 Status: Acute (8) Diabetes: Qualifiers: Diabetes mellitus complication status: without complication Diabetes mellitus ferry terminal agent insulin use: without residential use Diabetes mellitus type: type 2 Qualified Code(s): E11.9 - Type 2 diabetes mellitus without complications Code(s): E11.9 - Type 2 diabetes mellitus without complications Status: Acute (9) Hallucinations: Code(s): R44.3 - Hallucinations, unspecified Status: Acute (10) Chronic pain: Code(s): G89.29 - Other chronic pain Status: Acute (11) Abnormality of gait and mobility: Code(s): R26.9 - Unspecified abnormalities of gait and mobility Status: Chronic DS: Summary Hospital Course Reason for hospitalization: acute on chronic respiratory failure with hypoxia shortness of breath pneumonia bradycardia afib chf covid dm hallucinations chronic pain abnormality of gait Hospital Course: 73F with a past medical history of obesity, sedentary status/wheelchair bound, chronic pain, RLS, Insomnia, GERD, IDDM2, and dementia presents to the hospital from [facility] for shortness of breath. Patient is chronically on supplemental oxygen of 3L NC however on admission she was requiring increased oxygen supplementation to maintain saturations. During admission she was able to be weaned back to her baseline 3L NC. Viral panel covid positive. CXR on admission showed small right pleural effusion with probable right basilar atelectasis versus pneumonia. Chest CT showed severe emphysema, cirrhosis of the liver, and chronic small pericardial effusion. patient started on antibiotics for pneumonia which were completed during admission. Patient had an echo obtained to evaluate heart function given possible chf exacerbation contributing to her shortness of breath. echo showed EF 65-70%, abnormal diastolic function, and moderate pulmonary hypertension. Patient continued her home lasix. During admission patient was noted to have heart rates dropping into the 30s. She was given atropine and heart rates improved. Cardiology was consulted at that time. Amiodarone and metoprolol were discontinued. Heart rates remained stable off of these medications. Discussed patient with cardiology MONITOR TECH who states that patient is okay to discontinue the amiodarone and metoprolol at time of discharge. She is to have a 30 day cardiac event monitor and follow up in the office. She remains on eliquis for her atrial fibrillation. At time of discharge patient has no complaints denying chest pain, shortness of breaht, palpitations, nausea/vomiting, abdominal pain, and dizziness/lightheadedness. Patient discharged back to [facility] in a stable condition. She is to follow up with her PCP in 1 week and cardiology as scheduled. Status at Discharge Functional status at discharge: wheelchair bound Time Spent with Patient Time attestation: Total time spent providing and/or coordinating discharge services: Time spent: Greater than 30 minutes Exam Narrative: AF HR 66 RR 18 SpO2 100 3L NC (baseline) BP 113/59 General: female in no acute respiratory distress who is nontoxic appearing, lying semi recumbent in bed. HEENT: Normocephalic. Atraumatic. Extraocular movement intact. Sclera clear and anicteric. No facial asymmetry. Chest: Lungs clear to auscultation bilaterally in the bases. No wheezes CV: Heart was regular rate and rhythm. S1-S2. No murmurs, gallops, or rubs. Abd: Abdomen was soft. Nontender. Nondistended. Positive bowel sounds. No organomegaly or masses. Ext: No clubbing, cyanosis, or edema. Neuro: Patient is alert. Speech is clear. DS: Data Data Completed and Pending Completed studies during hospitalization: chest ct chest xr Labs on day of discharge: Labs from last 24 hours 06/23/24 06/23/24 06/22/24 07:59 05:40 21:13 WBC 9.1 RBC 3.90 L Hgb 10.9 L Hct 36.7 L MCV 94.1 MCH 27.9 MCHC 29.7 L RDW 16.8 H Plt Count 204 MPV 11.1 H Immature Gran % (Auto) 0.5 Neut % (Auto) 72.1 Lymph % (Auto) 20.5 [place] % (Auto) 5.9 Eos % (Auto) 0.9 Baso % (Auto) 0.1 L Lymph # (Auto) 1.87 [place] # (Auto) 0.5 Eos # (Auto) 0.1 Baso # (Auto) 0.0 Abs Immat Gran (auto) 0.05 H Absolute Neuts (auto) 6.6 Absolute Nucleated RBC 0.000 Band Neutrophils % Not Reportable Nucleated RBC % 0.0 Platelet Estimate Adequate Hypochromasia 1+ Schistocytes None seen Sodium 138 Potassium 4.4 Chloride 98 Carbon Dioxide 35 H Anion Gap 5 BUN 18 H Creatinine 0.64 L Estim Creat Clear Calc 81 Estimated GFR > 60 Glucose 141 H POC Capillary Glucose 127 H 223 H Calcium 8.6 Magnesium 2.3 Total Bilirubin 0.3 AST 55 H ALT 74 H Alkaline Phosphatase 78 Total Protein 6.0 L Albumin 3.3 L 06/22/24 06/22/24 06/22/24 20:26 16:58 12:01 WBC RBC Hgb Hct MCV MCH MCHC RDW Plt Count MPV Immature Gran % (Auto) Neut % (Auto) Lymph % (Auto) [place] % (Auto) Eos % (Auto) Baso % (Auto) Lymph # (Auto) [place] # (Auto) Eos # (Auto) Baso # (Auto) Abs Immat Gran (auto) Absolute Neuts (auto) Absolute Nucleated RBC Band Neutrophils % Nucleated RBC % Platelet Estimate Hypochromasia Schistocytes Sodium Potassium Chloride Carbon Dioxide Anion Gap BUN Creatinine Estim Creat Clear Calc Estimated GFR Glucose POC Capillary Glucose 180 H 184 H 223 H Calcium Magnesium Total Bilirubin AST ALT Alkaline Phosphatase Total Protein Albumin Discharge Plan Discharge Attending physician on discharge: Hiwot Akbar Consulting providers: Raghav Interiano Discharging Clinician: Kay Mendoza Anticipated Discharge Date/Time: 06/23/24 10:11 Patient Disposition: NH Detention/Asst Living Activity: as tolerated Diet: as tolerated, heart healthy and diabetic Discharge Instructions: Discharge disposition: Patient admitted to the hospital for shortness of breath and was diagnosed with pneumonia Completed antibiotic course during admission Patient covid positive on / Complete prednisone taper, attached is information on this medication Eat well balanced meals and stay hydrated Keep active, but do not over do it No running marathons, riding your bike, or any other activity that is not mild If you notice that you are short of breath sit down and take a break Continue baseline oxygen supplementation of 3L NC Check your SPO2 periodically, if it is low cough and rest, check again in about 15 minutes, if you remain low, you should come back to the hospital Patient was bradycardic (low heart rate) during admission Evaluated by cardiology Stop amiodarone and metoprolol Continue eliquis hospital monitor ordered for 30 days Follow up with cardiology in the outpatient setting, call for an appointment Ejection fraction has improved on most recent echo Continue patients home medications for heart failure Maintain a cardiac diet, 2 g sodium, do not over hydrate Remain active Monitor urine output Daily weights, if you gain more than 3 lb within 1 day or 5 lb in 1 week notify your primary care provider Monitor blood pressures Take caution while standing, rising, or moving Change positions slowly taking a break between each position change If you standing feel dizzy sit back down and take a break Encouraged to continue with yearly vaccinations Return to the emergency department if he developed sudden shortness of breath, chest pain, nausea, vomiting, upset stomach or intractable diarrhea Return to the emergency department if you develop fever greater than 101.5 Follow-up with the primary care physician within 1-2 weeks Thank you for choosing [facility] for your healthcare needs Patient Instructions: Prednisone (By mouth), Apixaban (By mouth), Heart Failure (DC), A-fib (Atrial Fibrillation) (DC), Pneumonia (DC), Safe Use of Anticoagulants (DC), Blood Thinners (DC) Patient Language: Malaysian Stand Alone Forms: General Discharge Information Follow-up/Referrals: Sweta,MD nAand [Primary Care Provider] - 1 Week Raghav Interiano MD [Physician] - Call for Appointment Discharge Medications: New prednisone 10 mg tablets,dose pack See Taper PO DAILY Qty: 22 0RF Taper: Prednisone Taper from 60 mg;12 days 60 mg DAILY for 2 Days and 0 Hour 50 mg DAILY for 2 Days and 0 Hour 40 mg DAILY for 2 Days and 0 Hour 30 mg DAILY for 2 Days and 0 Hour 20 mg DAILY for 2 Days and 0 Hour 10 mg DAILY for 2 Days and 0 Hour Rx Instructions: 40 ng (4 tabs)x1 day, then 30 mg (3 tabs) x 3 days, then 20 mg (2 tabs) x 3 days, then 10 mg (1 tab) x3 days, then stop Continued ipratropium-albuterol 0.5 mg-3 mg(2.5 mg base)/3 mL Solution For Nebulization 3 ml INHALATION Q6H PRN (Reason: sob/wheezing) cyanocobalamin (vitamin B-12) 250 mcg Tablet 250 mcg PO DAILY pantoprazole 40 mg Tablet,Delayed Release (Dr/Ec) 40 mg PO QAM calcium carbonate 200 mg calcium (500 mg) Tablet,Chewable 400 mg PO Q8H PRN (Reason: Heartburn) Multiple Vitamin-Minerals Tablet 1 tablet PO DAILY polyethylene glycol 3350 [Miralax] 17 gram/dose Powder 17 g PO HS PRN (Reason: Constipation) ondansetron 4 mg Tablet,Disintegrating 4 mg PO Q8H PRN (Reason: Nausea And Vomiting) alum-mag hydroxide-simeth [Maalox Maximum Strength] 400-400-40 mg/5 mL Suspension 5 ml PO Q6H PRN (Reason: Heartburn) magnesium hydroxide [Milk Of Magnesia Concentrated] 2,400 mg/10 mL Suspension 30 ml PO Q6H PRN (Reason: Constipation) naloxone [Narcan] 4 mg/actuation [place],Non-Aerosol 1 spray INTRANASAL Q2-3M PRN (Reason: Opiate Reversal) Rx Instructions: spray 1 dose into ONE nostril; alternate nostrils w each dose until help arrives sennosides [senna] 8.6 mg Tablet 8.6 mg PO BID pyridoxine (vitamin B6) 25 mg Tablet 25 mg PO DAILY Eliquis 5 mg Tablet 5 mg PO Q12HR Qty: 60 0RF losartan 25 mg tablet 12.5 mg PO DAILY Qty: 30 0RF furosemide 40 mg tablet 40 mg PO DAILY metformin 500 mg tablet 500 mg PO DAILY primidone 50 mg tablet 50 mg PO BID gabapentin 600 mg tablet 600 mg PO TID trazodone 50 mg tablet 50 mg PO QHS acetaminophen 650 mg Tablet 650 mg PO Q6H PRN (Reason: pain) tramadol 50 mg tablet 50 mg PO QID lorazepam 0.5 mg tablet 0.5 mg PO QHS ferrous sulfate 325 mg (65 mg iron) Tablet 325 mg PO DAILY ropinirole 0.5 mg tablet 0.5 mg PO QHS buspirone 10 mg tablet 10 mg PO TID albuterol sulfate 90 mcg/actuation HFA aerosol inhaler 2 puff INHALATION Q4H PRN (Reason: Shortness Of Breath Or Wheezing) tamoxifen 20 mg tablet 20 mg PO DAILY cholecalciferol (vitamin D3) [Vitamin D3] 25 mcg (1,000 unit) Capsule 25 mcg PO DAILY Rx Instructions: 2 caps daily escitalopram oxalate 10 mg tablet 20 mg PO DAILY insulin aspart U-100 100 unit/mL (3 mL) insulin pen See Rx Instructions .ROUTE .COMPLEX Rx Instructions: Breakfast and Dinner SSI 141-180=2Units,181-220=4units,221-260=6units,261-300=8units,301-400=14units aripiprazole 5 mg tablet 5 mg PO DAILY Patient Comments: takes with the 2mg to make total dose of 7mg daily Rx Instructions: takes with 2mg tab memantine 10 mg tablet 10 mg PO BID aripiprazole 2 mg tablet 2 mg PO DAILY Rx Instructions: takes with 5mg tab nystatin 100,000 unit/gram Powder 1 applic TOPICAL PRN PRN (Reason: Antifungal ) Patient Comments: to red folds Novolog FlexPen U-100 Insulin 2 - 14 units .Route BID Rx Instructions: .Route<140 give 0. 141-180 give 2 units 181-220 give 4 units 221-260 give 6 units 261-300 give 8 units. 301-400 give 14 units. >400 call levalbuterol tartrate 45 mcg/actuation HFA aerosol inhaler 1 inh INHALATION TID PRN (Reason: shortness of breath or wheezing) Discontinued metoprolol tartrate 25 mg tablet 6.25 mg PO BID Qty: 30 0RF amiodarone [Pacerone] 200 mg Tablet 200 mg PO Q24H Other Ambulatory Orders: [place] cardiac event monitor (Routine) Timeframe: 1 Month Location: Determined by Patient Ordered By: Kay Mendoza Date of admission: 06/14/24 03:30 Primary Care Provider: Pennie*Anand Segura Admitting Provider: Elías Sunshine Attending physician on admission: Kay Mendoza Condition: Stable Hospitalist MIPS Heart Failure (Exclusion) Patient has history of Heart Transplant or Left Ventricular Assistive Device?: No IF YES, STOP HERE Heart Failure (Qualifier) Patient has current or prior documentation of LVEF less than or equal to 40%, or mod/servere depressed LVSF?: No IF NO, STOP HERE
[2024-06-23 12:22] LABS: Glucose Point of Care 211 mg/dl (65-105)
[2024-06-23] MEDS: INSULIN ASPART (*BKC) 100 UNITS/ML SUB-Q (12:23)
== END 2024-06-23 14:15 | DRG 193 ==
LOC: ANHED 06-14 03:30 → ANH3MEDSUR 06-14 04:19 → ANH2MED 06-14 04:49
PROVIDERS: General Practice; Nurse Practitioner Adult Health; Nurse Practitioner Family; Admitting Provider Internal Medicine; Emergency Provider Student in an Organized Health Care Education/Training Program; PCP Internal Medicine; Visit Provider Student in an Organized Health Care Education/Training Program
DX: J18.9 Pneumonia, unspecified organism (principal); J96.21 Acute and chronic respiratory failure with hypoxia; U07.1 COVID-19; J44.0 Chronic obstructive pulmonary disease with (acute) lower respiratory infection; I48.20 Chronic atrial fibrillation, unspecified; R44.3 Hallucinations, unspecified; Z99.81 Dependence on supplemental oxygen; I48.91 Unspecified atrial fibrillation; E11.42 Type 2 diabetes mellitus with diabetic polyneuropathy; E66.9 Obesity, unspecified; F03.90 Unspecified dementia, unspecified severity, without behavioral disturbance, psychotic disturbance, mood disturbance, and anxiety; F41.9 Anxiety disorder, unspecified; F32.A Depression, unspecified; G89.29 Other chronic pain; G25.81 Restless legs syndrome; G47.00 Insomnia, unspecified; I50.9 Heart failure, unspecified; I27.20 Pulmonary hypertension, unspecified; J43.9 Emphysema, unspecified; K21.9 Gastro-esophageal reflux disease without esophagitis; K74.60 Unspecified cirrhosis of liver; Z79.01 Long term (current) use of anticoagulants; Z79.4 Long term (current) use of insulin; Z99.3 Dependence on wheelchair; Z85.3 Personal history of malignant neoplasm of breast; Z87.891 Personal history of nicotine dependence; Z68.36 Body mass index [BMI] 36.0-36.9, adult
CPT/HCPCS: 36415; 71046; 71260; 80053; 82948; 83036; 83735; 83880; 84443; 84484; 85025; 85027; 87040; 87637; 93005; 94640; 96361; 96365; 96367; 96375; 99285; A9270; C8929; J0461; J0696; J1644; J1815; J1940; J2919; J7120; J7512; Q9957; Q9967

== ENCOUNTER 2024-08-15 07:37 | Outpatient (CLI) | payer MEDICARE, MEDICAID, SELFPAY ==
--- NOTE | ~2024-08-15 | US_ITS ---
Limited ABDOMINAL ULTRASOUND (Doppler ultrasound interrogation techniques used as needed for this exa m.) Ordering provider: Zena Zuniga APRN History: . y . Comparison: None. FINDINGS: PANCREAS: Not visualized. PORTAL VEIN: Hepatopedal flow demonstrated. LIVER: Normal size. Increased echogenicity suggestive of Fat infiltration. Irregular outline suggesti ve of cirrhosis. No focal hepatic lesions or perihepatic fluid collections are identified. BILIARY DUCTS: No intra or extrahepatic biliary dilation. Common bile duct measures 3 mm in diameter which is normal for patient's age. GALLBLADDER: Cholelithiasis. The largest stone measures 1.5 cm. No pericholecystic fluid. Wall thickn esses 2.8 mm. Negative sonographic Solares's sign. FREE FLUID: None visualized within the upper abdomen. IMPRESSION: Cholelithiasis. Liver cirrhosis. Otherwise, normal limited abdominal ultrasound. Reviewed, dictated and finalized at location A. IMPRESSION: Cholelithiasis. Liver cirrhosis. Otherwise, normal limited abdominal ultrasound .
--- OUTSIDE RECORDS SUMMARY | 2024-08-15 07:41 | XMS_ITS | Referral Summary ---
Author Organization [place] [address] [address] [place] [phone] Care Team Providers Care Gas Station Attendant Name Role Phone Anand Sol MD Primary Care Provider [phone] Encounters Date Type Department Care Team Description 07/22/2024 Telephone [facility] Medical [facility] Cardiology [address] [place] [address] [address] [place] [phone] Becky Villa NP 07/22/2024 Results Follow-Up [facility] Medical [facility] Cardiology [address] [place] [address] [place] [phone] Elise Valadez RN 07/11/2024 11:30 AM CDT Office Visit [facility] Medical [facility] Cardiology [address] [place] [address] [address] [place] [phone] Bibiana Prince NP Bradycardia (Primary Dx); Paroxysmal atrial fibrillation (HCC); Chronic diastolic congestive heart failure (HCC); Hospital discharge follow-up 06/28/2024 Telephone [facility] Cardiology [address] [place] [address] [address] [place] [phone] Becky Villa NP 06/24/2024 Orders Only [facility] Medical [facility] Cardiology [address] [place] [address] [address] [place] [phone] Becky Villa NP 06/23/2024 1:30 PM ANIMAL CAREGIVER Ancillary Procedure [facility] Medical [facility] Cardiology [address] [place] [address] [address] [place] [phone] Bradycardia 06/23/2024 Orders Only [facility] Cardiology [address] [place] [address] [address] [place] [phone] Becky Villa NP Bradycardia (Primary Dx) 06/06/2024 8:13 PM ANIMAL CAREGIVER - 06/06/2024 11:59 PM ANIMAL CAREGIVER Hospital Encounter [facility] Emergency, Room R Discharge Disposition: Discharge to home or self care 06/01/2024 3:06 PM ANIMAL CAREGIVER - 06/06/2024 8:15 PM ANIMAL CAREGIVER Hospital Encounter [facility] Acute Medicine [address] [place] [address] Silvia Reed MD Saeed, Salman, MD Sargsyan, Narine, MD Urinary tract infection associated with catheterization of urinary tract, unspecified indwelling urinary catheter type, initial encounter (Primary Dx); Confusion; Generalized weakness; Persistent headaches Discharge Disposition: Discharge to SNF from Last 3 Months Allergies Active Allergy Reactions Criticality Noted Date Comments Amoxicillin Unknown 06/01/2024 Medications ARIPiprazole (ABILIFY) 2 mg tablet Take 3.5 tablets (7 mg total) by mouth daily Active albuterol HFA (PROVENTIL HFA,VENTOLIN HFA,PROAIR HFA) 90 mcg/actuation inhaler Inhale 2 puffs every 4 (four) hours as needed for wheezing Active albuterol 2.5 mg /3 mL (0.083 %) nebulizer solution Take 3 mL (2.5 mg total) by nebulization every 6 (six) hours as needed for wheezing Active benzonatate (TESSALON) 100 mg capsuleIndicati ons:Cough Take 1 capsule (100 mg total) by mouth 3 (three) times a day as needed for cough Active busPIRone (BUSPAR) 10 mg tabletIndicatio ns:Generalized Anxiety Disorder Take 1 tablet (10 mg total) by mouth 3 (three) times a day Active calcium carbonate (TUMS) 500 mg (200 mg elemental calcium) chewable tabletIndicatio ns:Heartburn Take 2 tablet/chew tab (1,000 mg total) by mouth as needed for indigestion or heartburn Active cyanocobalamin (Vitamin B-12) 250 mcg tablet Take 1 tablet (250 mcg total) by mouth daily Active apixaban (ELIQUIS) 5 mg tablet Take 1 tablet (5 mg total) by mouth 2 (two) times a day Active ferrous sulfate ER 324 mg (65 mg iron) EC tabletIndicatio ns:Iron Deficiency Anemia Take 325 mg by mouth daily with breakfast Active gabapentin (NEURONTIN) 600 mg tabletIndicatio ns:Restless Legs Syndrome Take 1 tablet (600 mg total) by mouth 3 (three) times a day Active glucagon 1 mg kit 1 mL (1 mg total) as needed Active insulin syringe-needle U-100 0.3 mL 30 gauge x 1/2 syringe 3 (three) times a day before meals Active ipratropium-alb uteroL (DUO-NEB) 0.5-2.5 mg/3 mL nebulizer solution Take by nebulization every 6 (six) hours Active furosemide (LASIX) 40 mg tablet Take 1 tablet (40 mg total) by mouth daily Active escitalopram (LEXAPRO) 20 mg tablet Take 1 tablet (20 mg total) by mouth daily Active losartan (COZAAR) 25 mg tablet Take 0.5 tablets (12.5 mg total) by mouth daily Active aluminum-magnes ium hydroxide-simet hicone (MAALOX MAX) suspension 400-400-40 mg/5 mL Take 30 mL by mouth every 6 (six) hours as needed for indigestion or heartburn Active metFORMIN (GLUCOPHAGE) 500 mg tablet Take 1 tablet (500 mg total) by mouth 2 (two) times a day with meals Active magnesium hydroxide (MILK OF MAGNESIA) suspension 400 mg/5 mL 30 mL (2,400 mg total) daily as needed Active polyethylene glycol (MIRALAX) 17 gram packetIndicatio ns:constipation Take 1 packet (17 g total) by mouth daily Hold if loose bm Active multivitamin with minerals capsule Take 1 tablet by mouth Active memantine (NAMENDA) 10 mg tabletIndicatio ns:Moderate to Severe Alzheimer's Type Dementia Take 1 tablet (10 mg total) by mouth 2 (two) times a day Active naloxone (NARCAN) 4 mg/actuation spray,non-aeros ol 1 spray Call 911. Administer a single spray in one nostril. Repeat every 3 minutes as needed if no or minimal response. Active insulin aspart U-100 (NovoLOG) 100 unit/mL cartridge Inject under the skin 3 (three) times a day before meals 70-140- 0 units 141-180- 2 units 181-220- 4 units 221-260- 6 units 261-300- 8 units 301-400-14 units Greater than 400 call MD Active nystatin powder Apply topically daily as needed Active ondansetron (ZOFRAN) 4 mg tablet Take 1 tablet (4 mg total) by mouth every 8 (eight) hours as needed for nausea or vomiting Active pantoprazole DR (PROTONIX) 40 mg EC tablet Take 1 tablet (40 mg total) by mouth daily Active primidone (MYSOLINE) 50 mg tablet Take 1 tablet (50 mg total) by mouth 2 (two) times a day Active pyridoxine (VITAMIN B6) 25 mg tablet Take 1 tablet (25 mg total) by mouth daily Active rOPINIRole (REQUIP) 0.5 mg tablet Take 1 tablet (0.5 mg total) by mouth nightly Active senna (SENOKOT) 8.6 mg tablet Take 1 tablet by mouth 2 (two) times a day Active tamoxifen (NOLVADEX) 20 mg tablet Take 1 tablet (20 mg total) by mouth daily Active acetaminophen (TYLENOL) 325 mg tablet Take 2 tablets (650 mg total) by mouth 3 (three) times a day Active cholecalciferol 25 mcg (1,000 unit) tablet Take 1 tablet (1,000 Units total) by mouth daily Active LORazepam (ATIVAN) 0.5 mg tablet Take 1 tablet (0.5 mg total) by mouth nightly for 2 doses 2 tablet 5 Active traMADoL (ULTRAM) 50 mg tabletIndicatio ns:Pain Take 1 tablet (50 mg total) by mouth every 6 (six) hours for 6 doses 6 tablet 5 Active traZODone (DESYREL) 50 mg tablet Take 1 tablet (50 mg total) by mouth nightly for 2 doses 2 tablet 5 Active amiodarone (PACERONE) 100 mg tablet Take 1 tablet (100 mg total) by mouth daily 5 06/06/19 26 Active Additional Information Patient not taking.Reported on 07/11/2024 Active Problems Problem Noted Date Diagnosed Date Persistent headaches 06/04/2024 Status post bilateral mastectomy 06/02/2024 Breast cancer 06/02/2024 Chronic respiratory failure with hypoxia 025 Toxic metabolic encephalopathy 06/02/2024 Liver cirrhosis 06/02/2024 COPD (chronic obstructive pulmonary disease) Adrenal mass 06/02/2024 Urinary tract infection asso ciated with catheterization of urinary tract, unspecified indwelling urinary catheter type, initial encounter 06/01/2024 Social History Tobacco Use Types Packs/Day Years Used Date Smoking Tobacco: Former Cigarettes Tobacco Cessation:Counseling Given: Not Answered Personal Safety Answer Date Recorded Have you ever been in or are you currently in a harmful physical or emotional relationship or is someone making you feel afraid or unsafe? Denies 06/01/2024 Comments No Sex and Gender Information Value Date Recorded Sex Assigned at Not on file Legal Sex Female 9:11 AM ANIMAL CAREGIVER Gender Identity Not on file Sexual Orientation Not on file Last Filed Vital Signs Vital Sign Reading Time Taken Comments Blood Pressure 106/62 07/11/2024 11:30 AM CDT Pulse 65 07/11/2024 11:30 AM CDT Temperature 36.3 C (97.3 F) 06/06/2024 7:49 PM ANIMAL CAREGIVER Respiratory Rate 20 06/06/2024 7:49 PM ANIMAL CAREGIVER Oxygen Saturation 95% 07/11/2024 11:30 AM CDT Inhaled Oxygen Concentration - - Weight 90.7 kg (200 lb) 07/11/2024 11:30 AM CDT Height 170.2 cm (5' 7 ) 07/11/2024 11:30 AM CDT Body Mass Index 31.32 07/11/2024 11:30 AM CDT Plan of Treatment Not on file Procedures Procedure Name Priority Date/Time Associated Diagnosis Comments MCT - MOBILE CARDIAC TELEMETRY EVENT MONITOR Routine 06/23/2024 11:50 AM ANIMAL CAREGIVER Bradycardia CARDIOLOGY DOCUMENT SCAN Routine 06/21/2024 3:21 PM ANIMAL CAREGIVER CARDIOLOGY DOCUMENT SCAN Routine 06/20/2024 2:49 PM ANIMAL CAREGIVER POCT GLUCOSE DEVICE Routine 06/06/2024 4 :44 PM ANIMAL CAREGIVER POCT GLUCOSE DEVICE Routine 06/06/2024 1 1:50 AM ANIMAL CAREGIVER POCT GLUCOSE DEVICE Routine 06/06/2024 7 :53 AM ANIMAL CAREGIVER EGFR Routine 06/06/2024 2:13 AM ANIMAL CAREGIVER DIFFERENTIAL AUTO Routine 06/06/2024 2:1 3 AM ANIMAL CAREGIVER MAGNESIUM Routine 06/06/2024 2:13 AM ANIMAL CAREGIVER COMPREHENSIVE METABOLIC PANEL Routine 06/06/2024 2:13 AM ANIMAL CAREGIVER CBC WITH AUTO DIFFERENTIAL Routine 06/06/2024 2:13 AM ANIMAL CAREGIVER POCT GLUCOSE DEVICE Routine 06/06/2024 2 :08 AM ANIMAL CAREGIVER POCT GLUCOSE DEVICE Routine 06/05/2024 8 :28 PM ANIMAL CAREGIVER POCT GLUCOSE DEVICE Routine 06/05/2024 5 :06 PM ANIMAL CAREGIVER POCT GLUCOSE DEVICE Routine 06/05/2024 1 2:12 PM ANIMAL CAREGIVER POCT GLUCOSE DEVICE Routine 06/05/2024 7 :37 AM ANIMAL CAREGIVER EGFR Routine 06/05/2024 2:44 AM ANIMAL CAREGIVER DIFFERENTIAL AUTO Routine 06/05/2024 2:4 4 AM ANIMAL CAREGIVER MAGNESIUM Routine 06/05/2024 2:44 AM ANIMAL CAREGIVER COMPREHENSIVE METABOLIC PANEL Routine 06/05/2024 2:44 AM ANIMAL CAREGIVER CBC WITH AUTO DIFFERENTIAL Routine 06/05/2024 2:44 AM ANIMAL CAREGIVER POCT GLUCOSE DEVICE Routine 06/05/2024 2 :12 AM ANIMAL CAREGIVER POCT GLUCOSE DEVICE Routine 06/04/2024 8 :[address] HEAD WO CONTRAST ED Urgent/IP Urgent 06/04/2024 5:05 PM ANIMAL CAREGIVER POCT GLUCOSE DEVICE Routine 06/04/2024 4 :38 PM ANIMAL CAREGIVER POCT GLUCOSE DEVICE Routine 06/04/2024 1 1:52 AM ANIMAL CAREGIVER POCT GLUCOSE DEVICE Routine 06/04/2024 7 :56 AM ANIMAL CAREGIVER EGFR Routine 06/04/2024 3:21 AM ANIMAL CAREGIVER DIFFERENTIAL AUTO Routine 06/04/2024 3:2 1 AM ANIMAL CAREGIVER MAGNESIUM Routine 06/04/2024 3:21 AM ANIMAL CAREGIVER COMPREHENSIVE METABOLIC PANEL Routine 06/04/2024 3:21 AM ANIMAL CAREGIVER CBC WITH AUTO DIFFERENTIAL Routine 06/04/2024 3:21 AM ANIMAL CAREGIVER POCT GLUCOSE DEVICE Routine 06/04/2024 1 :58 AM ANIMAL CAREGIVER POCT GLUCOSE DEVICE Routine 06/03/2024 1 1:55 PM ANIMAL CAREGIVER POCT GLUCOSE DEVICE Routine 06/03/2024 8 :37 PM ANIMAL CAREGIVER POCT GLUCOSE DEVICE Routine 06/03/2024 5 :14 PM ANIMAL CAREGIVER POCT GLUCOSE DEVICE Routine 06/03/2024 1 1:51 AM ANIMAL CAREGIVER POCT GLUCOSE DEVICE Routine 06/03/2024 7 :23 AM ANIMAL CAREGIVER POCT GLUCOSE DEVICE Routine 06/03/2024 2 :21 AM ANIMAL CAREGIVER EGFR Routine 06/03/2024 2:18 AM ANIMAL CAREGIVER DIFFERENTIAL AUTO Routine 06/03/2024 2:1 8 AM ANIMAL CAREGIVER MAGNESIUM Routine 06/03/2024 2:18 AM ANIMAL CAREGIVER COMPREHENSIVE METABOLIC PANEL Routine 06/03/2024 2:18 AM ANIMAL CAREGIVER CBC WITH AUTO DIFFERENTIAL Routine 06/03/2024 2:18 AM ANIMAL CAREGIVER POCT GLUCOSE DEVICE Routine 06/02/2024 8 :40 PM ANIMAL CAREGIVER POCT GLUCOSE DEVICE Routine 06/02/2024 4 :30 PM ANIMAL CAREGIVER POCT GLUCOSE DEVICE Routine 06/02/2024 1 1:30 AM ANIMAL CAREGIVER POCT GLUCOSE DEVICE Routine 06/02/2024 8 :26 AM ANIMAL CAREGIVER PROCALCITONIN Add-On 06/02/2024 4:52 AM ANIMAL CAREGIVER EGFR Routine 06/02/2024 4:52 AM ANIMAL CAREGIVER DIFFERENTIAL AUTO Routine 06/02/2024 4:5 2 AM ANIMAL CAREGIVER MAGNESIUM Routine 06/02/2024 4:52 AM ANIMAL CAREGIVER COMPREHENSIVE METABOLIC PANEL Routine 06/02/2024 4:52 AM ANIMAL CAREGIVER CBC WITH AUTO DIFFERENTIAL Routine 06/02/2024 4:52 AM ANIMAL CAREGIVER POCT GLUCOSE DEVICE Routine 06/02/2024 4 :45 AM ANIMAL CAREGIVER POCT GLUCOSE DEVICE Routine 06/02/2024 2 :19 AM ANIMAL CAREGIVER POCT GLUCOSE DEVICE Routine 06/01/2024 1 1:39 PM ANIMAL CAREGIVER POCT GLUCOSE DEVICE Routine 06/01/2024 6 :18 PM ANIMAL CAREGIVER SEPSIS LACTATE WITH REFLEX Timed 06/01/2024 6:14 PM ANIMAL CAREGIVER TROPONIN T HIGH-SENSITIVITY 2-HOUR Timed 06/01/2024 6:[address] CHEST PE ABDOMEN PELVIS W CONTRAST ED 06/01/2024 5:[address] HEAD WO CONTRAST ED 06/01/2024 5 :04 PM ANIMAL CAREGIVER ECG 12-LEAD STAT 06/01/2024 4:02 PM ANIMAL CAREGIVER BLOOD CULTURE STAT 06/01/2024 3:52 PM ANIMAL CAREGIVER BLOOD CULTURE STAT 06/01/2024 3:52 PM ANIMAL CAREGIVER EGFR STAT 06/01/2024 3:28 PM ANIMAL CAREGIVER DIFFERENTIAL AUTO STAT 06/01/2024 3:2 8 PM ANIMAL CAREGIVER TROPONIN T HIGH-SENSITIVITY SERIES (BASELINE, 2HR, 4HR, 6HR) STAT 06/01/2024 3:28 PM ANIMAL CAREGIVER PROTIME-INR STAT 06/01/2024 3:28 PM ANIMAL CAREGIVER SEPSIS LACTATE WITH REFLEX STAT 06/01/2024 3:28 PM ANIMAL CAREGIVER COMPREHENSIVE METABOLIC PANEL STAT 06/01/2024 3:28 PM ANIMAL CAREGIVER CBC WITH AUTO DIFFERENTIAL STAT 06/01/2024 3:28 PM ANIMAL CAREGIVER PRO B-TYPE NATRIURETIC PEPTIDE STAT 06/01/2024 3:28 PM ANIMAL CAREGIVER INFLUENZA A/B, RSV, AND COVID-19 PCR STAT 06/01/2024 3:28 PM ANIMAL CAREGIVER from Last 3 Months Results * MCT Mobile Cardiac Telemetry Event Monitor (06/23/2024 11:50 AM ANIMAL CAREGIVER) Anatomical Region Laterality Modality Electrocardiogra phy Narrative 07/07/2024 12:18 PM CDT Images from the original result were not included. 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 Interpretation: Predominant rhythm is sinus bradycardia. The average heart rate was 59 beats per minute. The minimum heart rate was 45 beats per minute (occurred during sleeping hours). The maximum heart rate was 77 beats per minute. No evidence of atrial fibrillation, SVT, pauses, heart block, or ventricular tachycardia. The PAC burden is <1%. The PVC burden is <1%. Patient reported no symptoms during the monitoring period. Conclusions: Sinus bradycardia with an average heart rate of 59 beats per minute. No significant arrhythmias. No patient reported symptoms. Jim Garcia M.D., [facility] 07/07/24 Result [facility] Becky Villa NP CV CARDIAC SERVICES PROCEDUR ES Final Result * Cardiology Document Scan (06/21/2024 3:21 PM ANIMAL CAREGIVER) Anatomical Region Laterality Modality Other Becky Villa NP CV CARDIAC SERVICES PROCEDUR ES Final Result * Cardiology Document Scan (06/20/2024 2:49 PM ANIMAL CAREGIVER) Anatomical Region Laterality Modality Other Result [facility] Becky Villa NP CV CARDIAC SERVICES PROCEDUR ES Final Result * (ABNORMAL) POCT glucose (06/06/2024 4:44 PM ANIMAL CAREGIVER) Glucose, POC 211(H) 70 - 199 mg/dL Blood 06/06/2024 4:44 PM ANIMAL CAREGIVER 06/06/2024 4:44 PM ANIMAL CAREGIVER Zahraa Coon MD LAB POCT ORDERABLES - DEVICE Final Result [facility] [place] [facility] Department [place] [address] * POCT glucose (06/06/2024 11:50 AM ANIMAL CAREGIVER) Glucose, POC 167 70 - 199 mg/dL Blood 06/06/2024 11:5 0 AM ANIMAL CAREGIVER 06/06/2024 11:50 AM ANIMAL CAREGIVER Zahraa Coon MD LAB POCT ORDERABLES - DEVICE Final Result [facility] [place] 1 [facility] [place] [address] * POCT glucose (06/06/2024 7:53 AM ANIMAL CAREGIVER) Glucose, POC 134 70 - 199 mg/dL Blood 06/06/2024 7:53 AM ANIMAL CAREGIVER 06/06/2024 7:53 AM ANIMAL CAREGIVER Zahraa Coon MD LAB POCT ORDERABLES - DEVICE Final Result Performing Organization Address City/[facility] Co de Phone Number [facility] 1 [facility] [place] [employer] [place] [address] * eGFR (06/06/2024 2:13 AM ANIMAL CAREGIVER) eGFR >90 >=60 mL/min/1. 73 m2 Comment: Interpretive Data Reference Interval Normal >/= 90 mL/min/1.73m2 Mildly decreased* 60 - 89 mL/min/1.73m2 Mildly to moderately decreased 45 - 59 mL/min/1.73m2 Moderately to severely decreased 30 - 44 mL/min/1.73m2 Severely decreased 15 - 29 mL/min/1.73m2 Kidney Failure < 15 mL/min/1.73m2 *Relative to young adult level Estimated glomerular filtration rate is determined by the 2020 CKD-EPI equation recommended by the National Kidney Foundation (A Unifying Approach to GFR Estimation: Recommendations of the NKF-ASK Task Force on Reassessing the Inclusion of Race in Diagnosing Kidney Disease, JASN 2020). The CKD-EPI equation should not be used for patients with unstable renal function and has not been validated in children and those over 70. Current interpretive data was last reviewed 2021. Blood 06/06/2024 2:13 AM ANIMAL CAREGIVER 06/06/2024 2:37 AM ANIMAL CAREGIVER us Fabrizio Fung MD LAB BLOOD ORDERABLES Final Resu lt [facility] ([place] [facility] [place] [address] * Differential, auto (06/06/2024 2:13 AM ANIMAL CAREGIVER) Neutrophil abs 4.8 1.5 - 6.5 K/cumm Imm gran abs 0.0 0.0 - 0.1 K/cumm [facility] ([place]) Lymphocyte abs 1.6 0.8 - 3.3 K/cumm [facility] Monocyte abs 0.7 0.2 - 0.8 K/cumm [facility] ([place] Eosinophil abs 0.1 0.0 - 0.5 K/cumm [facility]) Basophil abs 0.1 0.0 - 0.1 K/cumm [facility] ([place] Neutrophil pct 66.0 % [facility] ([place]) Comment: Interpretive Data Percent cell count reference ranges are not reported, since discordance with absolute values may lead to misinterpretation of CBC data. Current Interpretive Data was last revised on 2017. Imm gran pct 0.3 % [facility] ([place]) Comment: Interpretive Data Percent cell count reference ranges are not reported, since discordance with absolute values may lead to misinterpretation of CBC data. Current Interpretive Data was last revised on 2017. Lymphocyte pct 21.6 % [facility] ([place]) Comment: Interpretive Data Percent cell count reference ranges are not reported, since discordance with absolute values may lead to misinterpretation of CBC data. Current Interpretive Data was last revised on 2017. Monocyte pct 9.5 % [facility] ([place]) Comment: Interpretive Data Percent cell count reference ranges are not reported, since discordance with absolute values may lead to misinterpretation of CBC data. Current Interpretive Data was last revised on 2017. Eosinophil pct 1.8 % [facility] ([place]) Comment: Interpretive Data Percent cell count reference ranges are not reported, since discordance with absolute values may lead to misinterpretation of CBC data. Current Interpretive Data was last revised on 2017. Basophil pct 0.8 % [facility] ([place]) Comment: Interpretive Data Percent cell count reference ranges are not reported, since discordance with absolute values may lead to misinterpretation of CBC data. Current Interpretive Data was last revised on 2017. Blood 06/06/2024 2:13 AM ANIMAL CAREGIVER 06/06/2024 2:35 AM ANIMAL CAREGIVER us Fabrizio Fung MD LAB BLOOD ORDERABLES Final Resu lt [facility] ([place] 1 [facility] Department [place] [address] * (ABNORMAL) CBC with auto differential (06/06/2024 2:13 AM ANIMAL CAREGIVER) WBC 7.3 3.8 - 9.9 K/cumm Hgb 10.2(L) 11.9 - 15.5 g/dL [facility] Hct 33.9(L) 35.6 - 45.5 % [facility] Plt 182 150 - 400 K/cumm [facility] MPV 10.9 9.1 - 12.3 fL [facility] RBC 3.56(L) 3.90 - 5.20 M/cumm [facility]) MCV 95.2 81.3 - 96.4 fL [facility] MCH 28.7 27.1 - 33.3 pg [facility] MCHC 30.1(L) 32.3 - 35.7 g/dL [facility] RDW CV 16.7(H) 11.1 - 14.9 % [facility] RDW SD 59.0(H) 35.7 - 48.1 fL [facility] NRBC abs 0.00 0.00 - 0.01 K/cumm [facility]) Blood 06/06/2024 2:13 AM ANIMAL CAREGIVER 06/06/2024 2:35 AM ANIMAL CAREGIVER Fabrizio Fung MD LAB BLOOD ORDERABLES Final Resu lt [facility] ([place]) 1 [place] [address] * Magnesium (06/06/2024 2:13 AM ANIMAL CAREGIVER) Pathologist [facility] Magnesium 2.0 1.4 - 2.5 mg/dL Blood 06/06/2024 2:13 AM ANIMAL CAREGIVER 06/06/2024 2:37 AM ANIMAL CAREGIVER Fabrizio Fung MD LAB BLOOD ORDERABLES Final Resu lt Performing Organization Address [facility] de Phone Number [facility] 1 [facility] [place] [address] * (ABNORMAL) Comprehensive metabolic panel (06/06/2024 2:13 AM ANIMAL CAREGIVER) Sodium 142 135 - 145 mmol/L Potassium, pl 3.9 3.3 - 4.9 mmol/L [facility]) Chloride 103 97 - 110 mmol/L [facility]) CO2 28 22 - 32 mmol/L [facility] [place]) Anion gap 11 2 - 15 mmol/L [facility] ([place] BUN 13 6 - 25 mg/dL [facility] ([place]) Creatinine 0.67 0.60 - 1.10 mg/dL [facility] ([place]) Glucose 161 70 - 199 mg/dL [facility]) Comment: Interpretive Data Fasting glucose >/= 126 mg/dl is diagnostic for diabetes. Fasting is defined as no caloric intake for at least 8 hours. Fasting glucose between 100 mg/dl to 125 mg/dl is diagnostic of prediabetes. In a patient with classic symptoms of hyperglycemia or hyperglycemic crisis, a random glucose >/= 200 mg/dl is diagnostic for diabetes. In the absence of unequivocal hyperglycemia, results should be confirmed by repeat testing. The classification and Diagnosis of Diabetes Diabetes Care 202; 46: S19-S40. Current interpretive data was last revised 2022. Calcium 8.5 8.5 - 10.3 mg/dL [facility] Bilirubin, total <0.2 0.1 - 1.2 mg/dL [facility] ([place]) Protein, pl 5.9(L) 6.5 - 8.5 g/dL [facility] ([place]) Albumin 3.1(L) 3.5 - 5.0 g/dL [facility] ([place]) Alk phos 75 40 - 130 Units/L [facility]) ALT 21 7 - 45 Units/L [facility]) AST 39 10 - 45 Units/L [facility]) Blood 06/06/2024 2:13 AM ANIMAL CAREGIVER 06/06/2024 2:37 AM ANIMAL CAREGIVER us Fabrizio Fung MD LAB BLOOD ORDERABLES Final Resu lt [facility] ([place] 1 [facility] [place] [address] * POCT glucose (06/06/2024 2:08 AM ANIMAL CAREGIVER) Glucose, POC 149 70 - 199 mg/dL Comment:Glu2: ABILIO/ Notified Blood 06/06/2024 2:08 AM ANIMAL CAREGIVER 06/06/2024 2:08 AM ANIMAL CAREGIVER us Zahraa Coon MD LAB POCT ORDERABLES - DEVICE Final Result [facility] [facility] [place] [address] * POCT glucose (06/05/2024 8:28 PM ANIMAL CAREGIVER) Glucose, POC 158 70 - 199 mg/dL Comment:Glu2: ABILIO/ Notified Blood 06/05/2024 8:28 PM ANIMAL CAREGIVER 06/05/2024 8:28 PM ANIMAL CAREGIVER us Zahraa Coon MD LAB POCT ORDERABLES - DEVICE Final Result [facility] 1 [facility] [place] [address] * POCT glucose (06/05/2024 5:06 PM ANIMAL CAREGIVER) Glucose, POC 123 70 - 199 mg/dL Blood 06/05/2024 5:06 PM ANIMAL CAREGIVER 06/05/2024 5:06 PM ANIMAL CAREGIVER us Zahraa Coon MD LAB POCT ORDERABLES - DEVICE Final Result Performing Organization Address City/[facility]/ZIP Co de Phone Number [facility] 1 [facility] [place] [place] [address] * (ABNORMAL) POCT glucose (06/05/2024 12:12 PM ANIMAL CAREGIVER) Glucose, POC 204(H) 70 - 199 mg/dL Blood 06/05/2024 12:1 2 PM ANIMAL CAREGIVER 06/05/2024 12:12 PM ANIMAL CAREGIVER us Zahraa Coon MD LAB POCT ORDERABLES - DEVICE Final Result Performing Organization Address City/[facility]/ZIP Co de Phone Number [facility] 1 [facility] [employer] [place] [address] * POCT glucose (06/05/2024 7:37 AM ANIMAL CAREGIVER) Glucose, POC 160 70 - 199 mg/dL Blood 06/05/2024 7:37 AM ANIMAL CAREGIVER 06/05/2024 7:37 AM ANIMAL CAREGIVER Zahraa Coon MD LAB POCT ORDERABLES - DEVICE Final Result RUBINA [facility] [place] 1 [facility] [place] [address] * eGFR (06/05/2024 2:44 AM ANIMAL CAREGIVER) eGFR 89 >=60 mL/min/1. 73 m2 Comment: Interpretive Data Reference Interval Normal >/= 90 mL/min/1.73m2 Mildly decreased* 60 - 89 mL/min/1.73m2 Mildly to moderately decreased 45 - 59 mL/min/1.73m2 Moderately to severely decreased 30 - 44 mL/min/1.73m2 Severely decreased 15 - 29 mL/min/1.73m2 Kidney Failure < 15 mL/min/1.73m2 *Relative to young adult level Estimated glomerular filtration rate is determined by the 2020 CKD-EPI equation recommended by the National Kidney Foundation (A Unifying Approach to GFR Estimation: Recommendations of the NKF-ASK Task Force on Reassessing the Inclusion of Race in Diagnosing Kidney Disease, JASN 2020). The CKD-EPI equation should not be used for patients with unstable renal function and has not been validated in children and those over 70. Current interpretive data was last reviewed 2021. Blood 06/05/2024 2:44 AM ANIMAL CAREGIVER 06/05/2024 4:16 AM ANIMAL CAREGIVER us Fabrizio Fung MD LAB BLOOD ORDERABLES Final Resu lt [facility] ([place]) 1 [facility] [place] [address] * Differential, auto (06/05/2024 2:44 AM ANIMAL CAREGIVER) Neutrophil abs 4.2 1.5 - 6.5 K/cumm Imm gran abs 0.0 0.0 - 0.1 K/cumm [facility] ([place]) Lymphocyte abs 1.7 0.8 - 3.3 K/cumm [facility] ([place]) Monocyte abs 0.6 0.2 - 0.8 K/cumm [facility] ([place]) Eosinophil abs 0.1 0.0 - 0.5 K/cumm [facility] ([place]) Basophil abs 0.1 0.0 - 0.1 K/cumm [facility] ([place]) Neutrophil pct 62.8 % [facility] ([place]) Comment: Interpretive Data Percent cell count reference ranges are not reported, since discordance with absolute values may lead to misinterpretation of CBC data. Current Interpretive Data was last revised on 2017. Imm gran pct 0.3 % [facility] ([place]) Comment: Interpretive Data Percent cell count reference ranges are not reported, since discordance with absolute values may lead to misinterpretation of CBC data. Current Interpretive Data was last revised on 2017. Lymphocyte pct 25.1 % [facility] ([place]) Comment: Interpretive Data Percent cell count reference ranges are not reported, since discordance with absolute values may lead to misinterpretation of CBC data. Current Interpretive Data was last revised on 2017. Monocyte pct 8.9 % [facility] ([place]) Comment: Interpretive Data Percent cell count reference ranges are not reported, since discordance with absolute values may lead to misinterpretation of CBC data. Current Interpretive Data was last revised on 2017. Eosinophil pct 1.9 % [facility] ([place]) Comment: Interpretive Data Percent cell count reference ranges are not reported, since discordance with absolute values may lead to misinterpretation of CBC data. Current Interpretive Data was last revised on 2017. Basophil pct 1.0 % [facility] ([place]) Comment: Interpretive Data Percent cell count reference ranges are not reported, since discordance with absolute values may lead to misinterpretation of CBC data. Current Interpretive Data was last revised on 2017. Blood 06/05/2024 2:44 AM ANIMAL CAREGIVER 06/05/2024 3:57 AM ANIMAL CAREGIVER us Fabrizio Fung MD LAB BLOOD ORDERABLES Final Resu lt [facility]ESAB[facility]INA [facility] ([place]) 1 [facility] Department of Laboratories [place], [place] [id number] * (ABNORMAL) CBC with auto differential (06/05/2024 2:44 AM ANIMAL CAREGIVER) WBC 6.7 3.8 - 9.9 K/cumm Hgb 10.1(L) 11.9 - 15.5 g/dL [facility] ([place]) Hct 35.5(L) 35.6 - 45.5 % [facility] ([place]) Plt 192 150 - 400 K/cumm [facility] ([place]) MPV 11.1 9.1 - 12.3 fL [facility] ([place] RBC 3.51(L) 3.90 - 5.20 M/cumm [facility] ([place]) MCV 101.1(H) 81.3 - 96.4 fL [facility] ([place]) Comment:MCV delta possibly d ue to low sample volume. MCH 28.8 27.1 - 33.3 pg [facility] ([place]) MCHC 28.5(L) 32.3 - 35.7 g/dL [facility] ([place]) RDW CV 17.2(H) 11.1 - 14.9 % [facility] ([place]) RDW SD 63.6(H) 35.7 - 48.1 fL [facility] ([place]) NRBC abs 0.00 0.00 - 0.01 K/cumm [facility] ([place]) Blood 06/05/2024 2:44 AM ANIMAL CAREGIVER 06/05/2024 3:57 AM ANIMAL CAREGIVER Fabrizio Fung MD LAB BLOOD ORDERABLES Final Resu lt Performing Organization Address City/[facility]/ZIP Co de Phone Number RUBINA [facility] ([place]) 1 [facility] [place] [address] * Magnesium (06/05/2024 2:44 AM ANIMAL CAREGIVER) Magnesium 1.9 1.4 - 2.5 mg/dL Blood 06/05/2024 2:44 AM ANIMAL CAREGIVER 06/05/2024 4:16 AM ANIMAL CAREGIVER Fabrizio Fung MD LAB BLOOD ORDERABLES Final Resu lt [facility]UBINA [facility] ([place]) 1 [facility] [employer] [place] [address] * (ABNORMAL) Comprehensive metabolic panel (06/05/2024 2:44 AM ANIMAL CAREGIVER) Sodium 139 135 - 145 mmol/L Potassium, pl 3.6 3.3 - 4.9 mmol/L [facility] ([place]) Chloride 100 97 - 110 mmol/L [facility] ([place]) CO2 29 22 - 32 mmol/L [facility] ([place]) Anion gap 10 2 - 15 mmol/L [facility] ([place]) BUN 12 6 - 25 mg/dL [facility] ([place]) Creatinine 0.71 0.60 - 1.10 mg/dL [facility] ([place]) Glucose 124 70 - 199 mg/dL [facility] ([place]) Comment: Interpretive Data Fasting glucose >/= 126 mg/dl is diagnostic for diabetes. Fasting is defined as no caloric intake for at least 8 hours. Fasting glucose between 100 mg/dl to 125 mg/dl is diagnostic of prediabetes. In a patient with classic symptoms of hyperglycemia or hyperglycemic crisis, a random glucose >/= 200 mg/dl is diagnostic for diabetes. In the absence of unequivocal hyperglycemia, results should be confirmed by repeat testing. The classification and Diagnosis of Diabetes Diabetes Care 202; 46: S19-S40. Current interpretive data was last revised 2022. Calcium 8.4(L) 8.5 - 10.3 mg/dL [facility] ([place]) Bilirubin, total <0.2 0.1 - 1.2 mg/dL [facility] ([place]) Protein, pl 5.8(L) 6.5 - 8.5 g/dL [facility] ([place]) Albumin 3.2(L) 3.5 - 5.0 g/dL [facility] ([place]) Alk phos 76 40 - 130 Units/L [facility] ([place]) ALT 25 7 - 45 Units/L [facility] ([place] AST 56(H) 10 - 45 Units/L [facility] ([place]) Comment: Hemolysis present. Results may be affected. Slightly Hemolyzed Specimen Blood 06/05/2024 2:44 AM ANIMAL CAREGIVER 06/05/2024 4:16 AM ANIMAL CAREGIVER us Fabrizio Fung MD LAB BLOOD ORDERABLES Final Resu lt Performing Organization Address City/[facility]/ZIP Co de Phone Number RUBINA [facility]ERR[facility] ([place] 1 [facility] [place] [address] * POCT glucose (06/05/2024 2:12 AM ANIMAL CAREGIVER) Glucose, POC 141 70 - 199 mg/dL Blood 06/05/2024 2:12 AM ANIMAL CAREGIVER 06/05/2024 2:12 AM ANIMAL CAREGIVER us Zahraa Coon MD LAB POCT ORDERABLES - DEVICE Final Result Performing Organization Address [facility] Co de Phone Number RUBINA [facility] ([place] 1 [facility] [place] [address] * POCT glucose (06/04/2024 8:26 PM ANIMAL CAREGIVER) Glucose, POC 153 70 - 199 mg/dL Blood 06/04/2024 8:26 PM ANIMAL CAREGIVER 06/04/2024 8:26 PM ANIMAL CAREGIVER Zahraa Coon MD LAB POCT ORDERABLES - DEVICE Final Result Performing Organization Address [facility] Co de Phone Number RUBINA [facility]ER[facility] ([place]) 1 [facility] [place] [address] * CT Head WO Contrast (06/04/2024 5:05 PM ANIMAL CAREGIVER) Anatomical Region Laterality Modality Head and Neck N/A Computed Tomogra phy 06/04/2024 6:09 PM ANIMAL CAREGIVER Narrative 06/04/2024 6:13 PM ANIMAL CAREGIVER EXAM DESCRIPTION: CT HEAD WO CONTRAST REASON FOR STUDY: Persistent headache. Patient is on anti coagulation. Headache for 4 days. TECHNIQUE: Axial images acquired through the brain without intravenous contrast. Images stored on PACS. Automated exposure control was used as a dose optimization technique for this examination. COMPARISON: CT head 06/01/2024 FINDINGS: BRAIN: No hemorrhage, edema or mass effect. Moderate amount of periventricular white matter hypoattenuation is nonspecific but most consistent with chronic small vessel ischemic disease. Moderate cerebral atrophy. The li-white matter differentiation is diffusely preserved. Basilar cisterns are patent. EXTRA-AXIAL SPACES: No fluid collections. No masses. CALVARIUM: No fracture. SINUSES/MASTOIDS: Stable opacification of the bilateral mastoid air cells. Partial opacification of the left middle ear. ORBITS: Prior bilateral lens surgery. OTHER: Intracranial atherosclerosis. IMPRESSION: No acute intracranial abnormality by CT criteria. Stable opacification of the bilateral mastoid air cells. Partial opacification of the left middle ear. THIS IS AN ELECTRONICALLY VERIFIED FINAL REPORT 06/04/2024 6:13 PM - Electronically signed by Sammy Smith M.D. LB: EDEN Report ID: [id number] Reading Location: [place] [address] Procedure Note Sammy Smith MD - 06/04/2024 EXAM DESCRIPTION: CT HEAD WO CONTRAST REASON FOR STUDY: Persistent headache. Patient is on anti coagulation. Headache for 4 days. TECHNIQUE: Axial images acquired through the brain without intravenous contrast. Images stored on PACS. Automated exposure control was used asa dose optimization technique for this examination. COMPARISON: CT head 06/01/2024 FINDINGS: BRAIN: No hemorrhage, edema or mass effect. Moderate amount of periventricular white matter hypoattenuation is nonspecific but most consistent with chronic small vessel ischemic disease. Moderate cerebral atrophy. The li-white matter differentiation is diffusely preserved. Basilar cisterns are patent. EXTRA-AXIAL SPACES: No fluid collections. No masses. CALVARIUM: No fracture. SINUSES/MASTOIDS: Stable opacification of the bilateral mastoid aircells. Partial opacification of the left middle ear. ORBITS: Prior bilateral lens surgery. OTHER: Intracranial atherosclerosis. IMPRESSION: No acute intracranial abnormality by CT criteria. Stable opacification of the bilateral mastoid air cells. Partial opacification of the left middle ear. THIS IS AN ELECTRONICALLY VERIFIED FINAL REPORT 06/04/2024 6:13 PM - Electronically signed by Sammy Smith M.D. LB: EDEN Report ID: [id number] Reading Location: [id number] Zahraa Coon MD IMG CT PROCEDURES Final Resul t * POCT glucose (06/04/2024 4:38 PM ANIMAL CAREGIVER) Glucose, POC 149 70 - 199 mg/dL Blood 06/04/2024 4:38 PM ANIMAL CAREGIVER 06/04/2024 4:38 PM ANIMAL CAREGIVER us Zahraa Coon MD LAB POCT ORDERABLES - DEVICE Final Result RUBINA [facility]ERRERO ([place] 1 [facility] [place] [place] [address] * POCT glucose (06/04/2024 11:52 AM ANIMAL CAREGIVER) Glucose, POC 180 70 - 199 mg/dL Blood 06/04/2024 11:5 2 AM ANIMAL CAREGIVER 06/04/2024 11:52 AM ANIMAL CAREGIVER Zahraa Coon MD LAB POCT ORDERABLES - DEVICE Final Result [facility] ([place]) 1 [facility] [place] [address] * POCT glucose (06/04/2024 7:56 AM ANIMAL CAREGIVER) Glucose, POC 112 70 - 199 mg/dL Blood 06/04/2024 7:56 AM ANIMAL CAREGIVER 06/04/2024 7:56 AM ANIMAL CAREGIVER Zahraa Coon MD LAB POCT ORDERABLES - DEVICE Final Result [facility] ([place]) 1 [facility] [place] [address] * eGFR (06/04/2024 3:21 AM ANIMAL CAREGIVER) eGFR >90 >=60 mL/min/1. 73 m2 Comment: Interpretive Data Reference Interval Normal >/= 90 mL/min/1.73m2 Mildly decreased* 60 - 89 mL/min/1.73m2 Mildly to moderately decreased 45 - 59 mL/min/1.73m2 Moderately to severely decreased 30 - 44 mL/min/1.73m2 Severely decreased 15 - 29 mL/min/1.73m2 Kidney Failure < 15 mL/min/1.73m2 *Relative to young adult level Estimated glomerular filtration rate is determined by the 2020 CKD-EPI equation recommended by the National Kidney Foundation (A Unifying Approach to GFR Estimation: Recommendations of the NKF-ASK Task Force on Reassessing the Inclusion of Race in Diagnosing Kidney Disease, JASN 2020). The CKD-EPI equation should not be used for patients with unstable renal function and has not been validated in children and those over 70. Current interpretive data was last reviewed 2021. Blood 06/04/2024 3:21 AM ANIMAL CAREGIVER 06/04/2024 3:41 AM ANIMAL CAREGIVER us Fabrizio Fung MD LAB BLOOD ORDERABLES Final Resu lt [facility] ([place] 1 [facility] [place] [address] * Differential, auto (06/04/2024 3:21 AM ANIMAL CAREGIVER) Neutrophil abs 3.7 1.5 - 6.5 K/cumm Imm gran abs 0.0 0.0 - 0.1 K/cumm [facility] ([place]) Lymphocyte abs 1.3 0.8 - 3.3 K/cumm [facility] ([place]) Monocyte abs 0.5 0.2 - 0.8 K/cumm [facility] ([place]) Eosinophil abs 0.1 0.0 - 0.5 K/cumm [facility] ([place]) Basophil abs 0.0 0.0 - 0.1 K/cumm [facility] ([place]) Neutrophil pct 64.9 % [facility] ([place]) Comment: Interpretive Data Percent cell count reference ranges are not reported, since discordance with absolute values may lead to misinterpretation of CBC data. Current Interpretive Data was last revised on 2017. Imm gran pct 0.5 % [facility] ([place]) Comment: Interpretive Data Percent cell count reference ranges are not reported, since discordance with absolute values may lead to misinterpretation of CBC data. Current Interpretive Data was last revised on 2017. Lymphocyte pct 23.0 % [facility] ([place]) Comment: Interpretive Data Percent cell count reference ranges are not reported, since discordance with absolute values may lead to misinterpretation of CBC data. Current Interpretive Data was last revised on 2017. Monocyte pct 8.8 % [facility] ([place]) Comment: Interpretive Data Percent cell count reference ranges are not reported, since discordance with absolute values may lead to misinterpretation of CBC data. Current Interpretive Data was last revised on 2017. Eosinophil pct 2.1 % [facility] ([place]) Comment: Interpretive Data Percent cell count reference ranges are not reported, since discordance with absolute values may lead to misinterpretation of CBC data. Current Interpretive Data was last revised on 2017. Basophil pct 0.7 % [facility] ([place]) Comment: Interpretive Data Percent cell count reference ranges are not reported, since discordance with absolute values may lead to misinterpretation of CBC data. Current Interpretive Data was last revised on 2017. Blood 06/04/2024 3:21 AM ANIMAL CAREGIVER 06/04/2024 3:42 AM ANIMAL CAREGIVER us Fabrizio Fung MD LAB BLOOD ORDERABLES Final Resu lt RUBINA [facility]ERO ([place]) 1 [facility] [place] [address] * (ABNORMAL) CBC with auto differential (06/04/2024 3:21 AM ANIMAL CAREGIVER) WBC 5.7 3.8 - 9.9 K/cumm Hgb 9.5(L) 11.9 - 15.5 g/dL [facility] ([place]) Hct 31.7(L) 35.6 - 45.5 % [facility] ([place]) Plt 178 150 - 400 K/cumm [facility] ([place]) MPV 11.0 9.1 - 12.3 fL [facility] ([place]) RBC 3.39(L) 3.90 - 5.20 M/cumm [facility] ([place]) MCV 93.5 81.3 - 96.4 fL [facility] ([place]) MCH 28.0 27.1 - 33.3 pg [facility] ([place]) MCHC 30.0(L) 32.3 - 35.7 g/dL [facility] ([place]) RDW CV 17.2(H) 11.1 - 14.9 % [facility] ([place]) RDW SD 59.7(H) 35.7 - 48.1 fL [facility] ([place]) NRBC abs 0.00 0.00 - 0.01 K/cumm [facility] ([place] Blood 06/04/2024 3:21 AM ANIMAL CAREGIVER 06/04/2024 3:42 AM ANIMAL CAREGIVER us Fabrizio Fung MD LAB BLOOD ORDERABLES Final Resu lt Performing Organization Address City/[facility]/ZIP Co de Phone Number RUBINA [facility] ([place]) 1 [facility] [place] [address] * Magnesium (06/04/2024 3:21 AM ANIMAL CAREGIVER) Pathologist [facility] Magnesium 2.0 1.4 - 2.5 mg/dL Blood 06/04/2024 3:21 AM ANIMAL CAREGIVER 06/04/2024 3:41 AM ANIMAL CAREGIVER Fabrizio Fung MD LAB BLOOD ORDERABLES Final Resu lt [facility] ([place]) 1 [facility] [place] [address] * (ABNORMAL) Comprehensive metabolic panel (06/04/2024 3:21 AM ANIMAL CAREGIVER) Sodium 139 135 - 145 mmol/L Potassium, pl 3.6 3.3 - 4.9 mmol/L [facility] ([place]) Chloride 102 97 - 110 mmol/L [facility] ([place]) CO2 30 22 - 32 mmol/L [facility] ([place]) Anion gap 7 2 - 15 mmol/L [facility] ([place] BUN 8 6 - 25 mg/dL [facility] ([place]) Creatinine 0.60 0.60 - 1.10 mg/dL [facility] ([place]) Glucose 137 70 - 199 mg/dL [facility] ([place]) Comment: Interpretive Data Fasting glucose >/= 126 mg/dl is diagnostic for diabetes. Fasting is defined as no caloric intake for at least 8 hours. Fasting glucose between 100 mg/dl to 125 mg/dl is diagnostic of prediabetes. In a patient with classic symptoms of hyperglycemia or hyperglycemic crisis, a random glucose >/= 200 mg/dl is diagnostic for diabetes. In the absence of unequivocal hyperglycemia, results should be confirmed by repeat testing. The classification and Diagnosis of Diabetes Diabetes Care 2021; 46: S19-S40. Current interpretive data was last revised 2022. Calcium 8.2(L) 8.5 - 10.3 mg/dL [facility] ([place]) Bilirubin, total <0.2 0.1 - 1.2 mg/dL [facility] ([place]) Protein, pl 5.5(L) 6.5 - 8.5 g/dL [facility] ([place]) Albumin 3.2(L) 3.5 - 5.0 g/dL [facility] ([place]) Alk phos 77 40 - 130 Units/L [facility] ([place]) ALT 27 7 - 45 Units/L [facility] ([place] AST 51(H) 10 - 45 Units/L [facility] ([place]) Blood 06/04/2024 3:21 AM ANIMAL CAREGIVER 06/04/2024 3:41 AM ANIMAL CAREGIVER us Fabrizio Fung MD LAB BLOOD ORDERABLES Final Resu lt [facility] ([place]) 1 [facility] [place] [address] * POCT glucose (06/04/2024 1:58 AM ANIMAL CAREGIVER) Glucose, POC 145 70 - 199 mg/dL Blood 06/04/2024 1:58 AM ANIMAL CAREGIVER 06/04/2024 1:58 AM ANIMAL CAREGIVER us Zahraa Coon MD LAB POCT ORDERABLES - DEVICE Final Result Performing Organization Address City/[facility]/ZIP Co de Phone Number RUBINA [facility]ERO ([place] 1 [facility] [place] [employer] [place] [address] * (ABNORMAL) POCT glucose (06/03/2024 11:55 PM ANIMAL CAREGIVER) Glucose, POC 214(H) 70 - 199 mg/dL Blood 06/03/2024 11:5 5 PM ANIMAL CAREGIVER 06/03/2024 11:55 PM ANIMAL CAREGIVER us Zahraa Coon MD LAB POCT ORDERABLES - DEVICE Final Result Performing Organization Address City/[facility]/ZIP Co de Phone Number [facility] ([place]) 1 [facility] [place] [address] * POCT glucose (06/03/2024 8:37 PM ANIMAL CAREGIVER) Glucose, POC 149 70 - 199 mg/dL Blood 06/03/2024 8:37 PM ANIMAL CAREGIVER 06/03/2024 8:37 PM ANIMAL CAREGIVER us Zahraa Coon MD LAB POCT ORDERABLES - DEVICE Final Result [facility] ([place] 1 [facility] [place] [address] * POCT glucose (06/03/2024 5:14 PM ANIMAL CAREGIVER) Glucose, POC 106 70 - 199 mg/dL Blood 06/03/2024 5:14 PM ANIMAL CAREGIVER 06/03/2024 5:14 PM ANIMAL CAREGIVER us Zahraa Coon MD LAB POCT ORDERABLES - DEVICE Final Result RUBINA [facility] ([place]) 1 [facility] [place] [address] * (ABNORMAL) POCT glucose (06/03/2024 11:51 AM ANIMAL CAREGIVER) Glucose, POC 203(H) 70 - 199 mg/dL Blood 06/03/2024 11:5 1 AM ANIMAL CAREGIVER 06/03/2024 11:51 AM ANIMAL CAREGIVER us Zahraa Coon MD LAB POCT ORDERABLES - DEVICE Final Result Performing Organization Address City/[facility]/ZIP Co de Phone Number RUBINA [facility] ([place]) 1 [facility] [place] [address] * POCT glucose (06/03/2024 7:23 AM ANIMAL CAREGIVER) Glucose, POC 93 70 - 199 mg/dL Blood 06/03/2024 7:23 AM ANIMAL CAREGIVER 06/03/2024 7:23 AM ANIMAL CAREGIVER us Zahara Coon MD LAB POCT ORDERABLES - DEVICE Final Result Performing Organization Address City/[facility]/ZIP Co de Phone Number [facility] ([place]) 1 [facility] [place] [address] * POCT glucose (06/03/2024 2:21 AM ANIMAL CAREGIVER) Glucose, POC 107 70 - 199 mg/dL Blood 06/03/2024 2:21 AM ANIMAL CAREGIVER 06/03/2024 2:21 AM ANIMAL CAREGIVER us Zahraa Coon MD LAB POCT ORDERABLES - DEVICE Final Result R[facility] ([place]) 1 [facility] [place] [address] * eGFR (06/03/2024 2:18 AM ANIMAL CAREGIVER) eGFR >90 >=60 mL/min/1. 73 m2 Comment: Interpretive Data Reference Interval Normal >/= 90 mL/min/1.73m2 Mildly decreased* 60 - 89 mL/min/1.73m2 Mildly to moderately decreased 45 - 59 mL/min/1.73m2 Moderately to severely decreased 30 - 44 mL/min/1.73m2 Severely decreased 15 - 29 mL/min/1.73m2 Kidney Failure < 15 mL/min/1.73m2 *Relative to young adult level Estimated glomerular filtration rate is determined by the 2020 CKD-EPI equation recommended by the National Kidney Foundation (A Unifying Approach to GFR Estimation: Recommendations of the NKF-ASK Task Force on Reassessing the Inclusion of Race in Diagnosing Kidney Disease, JASN 2020). The CKD-EPI equation should not be used for patients with unstable renal function and has not been validated in children and those over 70. Current interpretive data was last reviewed 2021. Blood 06/03/2024 2:18 AM ANIMAL CAREGIVER 06/03/2024 3:35 AM ANIMAL CAREGIVER us Fabrizio Fung MD LAB BLOOD ORDERABLES Final Resu lt [facility] ([place] 1 [facility] [place] [address] * Differential, auto (06/03/2024 2:18 AM ANIMAL CAREGIVER) Pathologist [facility] Neutrophil abs 3.1 1.5 - 6.5 K/cumm Imm gran abs 0.0 0.0 - 0.1 K/cumm [facility] ([place]) Lymphocyte abs 1.4 0.8 - 3.3 K/cumm [facility] ([place]) Monocyte abs 0.5 0.2 - 0.8 K/cumm [facility] ([place]) Eosinophil abs 0.1 0.0 - 0.5 K/cumm [facility] ([place]) Basophil abs 0.0 0.0 - 0.1 K/cumm [facility] ([place]) Neutrophil pct 58.9 % [facility] ([place]) Comment: Interpretive Data Percent cell count reference ranges are not reported, since discordance with absolute values may lead to misinterpretation of CBC data. Current Interpretive Data was last revised on 2017. Imm gran pct 0.4 % [facility] ([place]) Comment: Interpretive Data Percent cell count reference ranges are not reported, since discordance with absolute values may lead to misinterpretation of CBC data. Current Interpretive Data was last revised on 2017. Lymphocyte pct 27.2 % [facility] ([place]) Comment: Interpretive Data Percent cell count reference ranges are not reported, since discordance with absolute values may lead to misinterpretation of CBC data. Current Interpretive Data was last revised on 2017. Monocyte pct 10.4 % [facility] ([place]) Comment: Interpretive Data Percent cell count reference ranges are not reported, since discordance with absolute values may lead to misinterpretation of CBC data. Current Interpretive Data was last revised on 2017. Eosinophil pct 2.5 % [facility] ([place]) Comment: Interpretive Data Percent cell count reference ranges are not reported, since discordance with absolute values may lead to misinterpretation of CBC data. Current Interpretive Data was last revised on 2017. Basophil pct 0.6 % [facility] ([place]) Comment: Interpretive Data Percent cell count reference ranges are not reported, since discordance with absolute values may lead to misinterpretation of CBC data. Current Interpretive Data was last revised on 2017. Blood 06/03/2024 2:18 AM ANIMAL CAREGIVER 06/03/2024 3:38 AM ANIMAL CAREGIVER us Fabrizio Fung MD LAB BLOOD ORDERABLES Final Resu lt [facility] ([place]) 1 [facility] Department of Laboratories [place], [place] [id number] * (ABNORMAL) CBC with auto differential (06/03/2024 2:18 AM ANIMAL CAREGIVER) WBC 5.2 3.8 - 9.9 K/cumm Hgb 9.8(L) 11.9 - 15.5 g/dL [facility] ([place]) Hct 32.5(L) 35.6 - 45.5 % [facility] ([place]) Plt 182 150 - 400 K/cumm [facility] ([place]) MPV 11.2 9.1 - 12.3 fL [facility] ([place]) RBC 3.46(L) 3.90 - 5.20 M/cumm [facility] ([place]) MCV 93.9 81.3 - 96.4 fL [facility] ([place]) MCH 28.3 27.1 - 33.3 pg [facility] ([place]) MCHC 30.2(L) 32.3 - 35.7 g/dL [facility] ([place]) RDW CV 17.3(H) 11.1 - 14.9 % [facility] ([place]) RDW SD 59.3(H) 35.7 - 48.1 fL [facility] ([place]) NRBC abs 0.00 0.00 - 0.01 K/cumm [facility] ([place]) Blood 06/03/2024 2:18 AM ANIMAL CAREGIVER 06/03/2024 3:38 AM ANIMAL CAREGIVER us Fabrizio Fung MD LAB BLOOD ORDERABLES Final Resu lt [facility] ([place]) 1 [facility] [place] [address] * Magnesium (06/03/2024 2:18 AM ANIMAL CAREGIVER) Magnesium 2.1 1.4 - 2.5 mg/dL Blood 06/03/2024 2:18 AM ANIMAL CAREGIVER 06/03/2024 3:35 AM ANIMAL CAREGIVER Fabrizio Fung MD LAB BLOOD ORDERABLES Final Resu lt RUBINA GUERRERO ([place]) 1 [facility] [place] [address] * (ABNORMAL) Comprehensive metabolic panel (06/03/2024 2:18 AM ANIMAL CAREGIVER) Sodium 141 135 - 145 mmol/L Potassium, pl 3.7 3.3 - 4.9 mmol/L [facility] ([place]) Chloride 104 97 - 110 mmol/L [facility] ([place]) CO2 30 22 - 32 mmol/L [facility] ([place]) Anion gap 7 2 - 15 mmol/L [facility] ([place]) BUN 7 6 - 25 mg/dL [facility] ([place]) Creatinine 0.55(L) 0.60 - 1.10 mg/dL [facility] ([place]) Glucose 118 70 - 199 mg/dL [facility] ([place]) Comment: Interpretive Data Fasting glucose >/= 126 mg/dl is diagnostic for diabetes. Fasting is defined as no caloric intake for at least 8 hours. Fasting glucose between 100 mg/dl to 125 mg/dl is diagnostic of prediabetes. In a patient with classic symptoms of hyperglycemia or hyperglycemic crisis, a random glucose >/= 200 mg/dl is diagnostic for diabetes. In the absence of unequivocal hyperglycemia, results should be confirmed by repeat testing. The classification and Diagnosis of Diabetes Diabetes Care 2021; 46: S19-S40. Current interpretive data was last revised 2022. Calcium 8.3(L) 8.5 - 10.3 mg/dL [facility] ([place]) Bilirubin, total 0.2 0.1 - 1.2 mg/dL [facility] ([place]) Protein, pl 5.8(L) 6.5 - 8.5 g/dL [facility] ([place]) Albumin 3.2(L) 3.5 - 5.0 g/dL [facility] ([place]) Alk phos 68 40 - 130 Units/L [facility] ([place]) ALT 19 7 - 45 Units/L [facility] ([place]) AST 37 10 - 45 Units/L [facility] ([place]) Blood 06/03/2024 2:18 AM ANIMAL CAREGIVER 06/03/2024 3:35 AM ANIMAL CAREGIVER us Fabrizio Fung MD LAB BLOOD ORDERABLES Final Resu lt [facility] ([place]) 1 [facility] [place] [address] * POCT glucose (06/02/2024 8:40 PM ANIMAL CAREGIVER) Glucose, POC 116 70 - 199 mg/dL Blood 06/02/2024 8:40 PM ANIMAL CAREGIVER 06/02/2024 8:40 PM ANIMAL CAREGIVER us Zahraa Coon MD LAB POCT ORDERABLES - DEVICE Final Result Performing Organization Address City/[facility]/ZIP Co de Phone Number [place] GUERRERO [place] 1 [facility] [place] [address] * POCT glucose (06/02/2024 4:30 PM ANIMAL CAREGIVER) Glucose, POC 123 70 - 199 mg/dL Blood 06/02/2024 4:30 PM ANIMAL CAREGIVER 06/02/2024 4:30 PM ANIMAL CAREGIVER us Zahraa Coon MD LAB POCT ORDERABLES - DEVICE Final Result Performing Organization Address [facility]/ZIP Co de Phone Number [facility] ([place]) 1 [facility] [place] [address] * POCT glucose (06/02/2024 11:30 AM ANIMAL CAREGIVER) Glucose, POC 127 70 - 199 mg/dL Blood 06/02/2024 11:3 0 AM ANIMAL CAREGIVER 06/02/2024 11:30 AM ANIMAL CAREGIVER us Zahraa Coon MD LAB POCT ORDERABLES - DEVICE Final Result Performing Organization Address City/[facility]/ZIP Co de Phone Number [facility] ([place]) 1 [facility] [place] [address] * POCT glucose (06/02/2024 8:26 AM ANIMAL CAREGIVER) Glucose, POC 137 70 - 199 mg/dL Blood 06/02/2024 8:26 AM ANIMAL CAREGIVER 06/02/2024 8:26 AM ANIMAL CAREGIVER us Zahraa Coon MD LAB POCT ORDERABLES - DEVICE Final Result Performing Organization Address City/[facility] Co de Phone Number [place] 1 [facility] [place] [address] * eGFR (06/02/2024 4:52 AM ANIMAL CAREGIVER) Pathologist [facility] eGFR >90 >=60 mL/min/1. 73 m2 Comment: Interpretive Data Reference Interval Normal >/= 90 mL/min/1.73m2 Mildly decreased* 60 - 89 mL/min/1.73m2 Mildly to moderately decreased 45 - 59 mL/min/1.73m2 Moderately to severely decreased 30 - 44 mL/min/1.73m2 Severely decreased 15 - 29 mL/min/1.73m2 Kidney Failure < 15 mL/min/1.73m2 *Relative to young adult level Estimated glomerular filtration rate is determined by the 2020 CKD-EPI equation recommended by the National Kid[employer] (A Unifying Approach to GFR Estimation: Recommendations of the NKF-ASK Task Force on Reassessing the Inclusion of Race in Diagnosing Kidney Disease, JASN 2020). The CKD-EPI equation should not be used for patients with unstable renal function and has not been validated in children and those over 70. Current interpretive data was last reviewed 2021. Blood 06/02/2024 4:52 AM ANIMAL CAREGIVER 06/02/2024 4:58 AM ANIMAL CAREGIVER us Fabrizio Fung MD LAB BLOOD ORDERABLES Final Resu lt RUBINA GUERRERO ([place]) 1 [facility] [place] [address] * Differential, auto (06/02/2024 4:52 AM ANIMAL CAREGIVER) Neutrophil abs 3.6 1.5 - 6.5 K/cumm Imm gran abs 0.0 0.0 - 0.1 K/cumm [facility] ([place]) Lymphocyte abs 1.0 0.8 - 3.3 K/cumm [facility] ([place]) Monocyte abs 0.4 0.2 - 0.8 K/cumm [facility] ([place]) Eosinophil abs 0.1 0.0 - 0.5 K/cumm [facility] ([place]) Basophil abs 0.0 0.0 - 0.1 K/cumm [facility] ([place]) Neutrophil pct 69.5 % [facility] ([place]) Comment: Interpretive Data Percent cell count reference ranges are not reported, since discordance with absolute values may lead to misinterpretation of CBC data. Current Interpretive Data was last revised on 2017. Imm gran pct 0.2 % [facility] ([place]) Comment: Interpretive Data Percent cell count reference ranges are not reported, since discordance with absolute values may lead to misinterpretation of CBC data. Current Interpretive Data was last revised on 2017. Lymphocyte pct 18.8 % [facility] ([place]) Comment: Interpretive Data Percent cell count reference ranges are not reported, since discordance with absolute values may lead to misinterpretation of CBC data. Current Interpretive Data was last revised on 2017. Monocyte pct 8.6 % [facility] ([place]) Comment: Interpretive Data Percent cell count reference ranges are not reported, since discordance with absolute values may lead to misinterpretation of CBC data. Current Interpretive Data was last revised on 2017. Eosinophil pct 2.1 % [facility] ([place]) Comment: Interpretive Data Percent cell count reference ranges are not reported, since discordance with absolute values may lead to misinterpretation of CBC data. Current Interpretive Data was last revised on 2017. Basophil pct 0.8 % [facility] ([place]) Comment: Interpretive Data Percent cell count reference ranges are not reported, since discordance with absolute values may lead to misinterpretation of CBC data. Current Interpretive Data was last revised on 2017. Blood 06/02/2024 4:52 AM ANIMAL CAREGIVER 06/02/2024 4:58 AM ANIMAL CAREGIVER us Fabrizio Fung MD LAB BLOOD ORDERABLES Final Resu lt [facility] [place] 1 [facility] [place] [address] * Procalcitonin (06/02/2024 4:52 AM ANIMAL CAREGIVER) Pathologist [facility] Procalcitonin 0.09 <=0.25 ng/mL Comment:Testing performed by : [facility] [place] [address], [place]., [address] Blood 06/02/2024 4:52 AM ANIMAL CAREGIVER 06/02/2024 5:50 PM ANIMAL CAREGIVER us Zahraa Coon MD LAB BLOOD ORDERABLES Final Re sult [facility] ([place]) 1 [facility] [place] [address] * (ABNORMAL) CBC with auto differential (06/02/2024 4:52 AM ANIMAL CAREGIVER) Pathologist [facility] WBC 5.1 3.8 - 9.9 K/cumm Hgb 10.4(L) 11.9 - 15.5 g/dL [facility] ([place]) Hct 34.7(L) 35.6 - 45.5 % [facility] ([place]) Plt 176 150 - 400 K/cumm [facility] ([place]) MPV 10.7 9.1 - 12.3 fL [facility] ([place]) RBC 3.63(L) 3.90 - 5.20 M/cumm [facility] ([place]) MCV 95.6 81.3 - 96.4 fL [facility] ([place]) MCH 28.7 27.1 - 33.3 pg [facility] ([place]) MCHC 30.0(L) 32.3 - 35.7 g/dL [facility] ([place]) RDW CV 17.3(H) 11.1 - 14.9 % [facility] ([place]) RDW SD 60.7(H) 35.7 - 48.1 fL [facility] ([place]) NRBC abs 0.04(H) 0.00 - 0.01 K/cumm [facility] ([place]) Blood 06/02/2024 4:52 AM ANIMAL CAREGIVER 06/02/2024 4:58 AM ANIMAL CAREGIVER Fabrizio Fung MD LAB BLOOD ORDERABLES Final Resu lt RUBINA GUERRERO ([place]) 1 [facility] [place] [address] * Magnesium (06/02/2024 4:52 AM ANIMAL CAREGIVER) Pathologist [facility] Magnesium 2.1 1.4 - 2.5 mg/dL Blood 06/02/2024 4:52 AM ANIMAL CAREGIVER 06/02/2024 4:58 AM ANIMAL CAREGIVER Fabrizio Fung MD LAB BLOOD ORDERABLES Final Resu lt Performing Organization Address [facility] Co de Phone Number RUBINA GUERRERO ([place]) 1 [facility] [place] [address] * (ABNORMAL) Comprehensive metabolic panel (06/02/2024 4:52 AM ANIMAL CAREGIVER) Pathologist [facility] Sodium 143 135 - 145 mmol/L Potassium, pl 4.2 3.3 - 4.9 mmol/L [facility] ([place]) Chloride 106 97 - 110 mmol/L [facility] ([place]) CO2 29 22 - 32 mmol/L [facility] ([place]) Anion gap 8 2 - 15 mmol/L [facility] ([place]) BUN 8 6 - 25 mg/dL [facility] ([place]) Creatinine 0.52(L) 0.60 - 1.10 mg/dL [facility] ([place]) Glucose 114 70 - 199 mg/dL [facility] ([place]) Comment: Interpretive Data Fasting glucose >/= 126 mg/dl is diagnostic for diabetes. Fasting is defined as no caloric intake for at least 8 hours. Fasting glucose between 100 mg/dl to 125 mg/dl is diagnostic of prediabetes. In a patient with classic symptoms of hyperglycemia or hyperglycemic crisis, a random glucose >/= 200 mg/dl is diagnostic for diabetes. In the absence of unequivocal hyperglycemia, results should be confirmed by repeat testing. The classification and Diagnosis of Diabetes Diabetes Care 202; 46: S19-S40. Current interpretive data was last revised 2022. Calcium 8.3(L) 8.5 - 10.3 mg/dL [facility] ([place]) Bilirubin, total <0.2 0.1 - 1.2 mg/dL [facility] ([place]) Protein, pl 6.1(L) 6.5 - 8.5 g/dL [facility] ([place]) Albumin 3.4(L) 3.5 - 5.0 g/dL [facility] ([place]) Alk phos 83 40 - 130 Units/L [facility] ([place]) ALT 22 7 - 45 Units/L [facility] ([place]) AST 43 10 - 45 Units/L [facility] ([place]) Blood 06/02/2024 4:52 AM ANIMAL CAREGIVER 06/02/2024 4:58 AM ANIMAL CAREGIVER Fabrizio Fung MD LAB BLOOD ORDERABLES Final Resu lt Performing Organization Address City/[facility]/ZIP Co de Phone Number [facility] ([place]) 1 [facility] [place] [address] * POCT glucose (06/02/2024 4:45 AM ANIMAL CAREGIVER) Glucose, POC 113 70 - 199 mg/dL Blood 06/02/2024 4:45 AM ANIMAL CAREGIVER 06/02/2024 4:45 AM ANIMAL CAREGIVER Kyler Moran MD LAB POCT ORDERABLES - DEVICE Fin al Result Performing Organization Address City/[facility]/ZIP Co de Phone Number [facility] ([place]) 1 [facility] [place] [address] * POCT glucose (06/02/2024 2:19 AM ANIMAL CAREGIVER) Glucose, POC 171 70 - 199 mg/dL Blood 06/02/2024 2:19 AM ANIMAL CAREGIVER 06/02/2024 2:19 AM ANIMAL CAREGIVER Kyler Moran MD LAB POCT ORDERABLES - DEVICE Fin al Result Performing Organization Address City/[facility]/ZIP Co de Phone Number RUBINA GUERRERO ([place]) 1 [place] [address] * POCT glucose (06/01/2024 11:39 PM ANIMAL CAREGIVER) Glucose, POC 163 70 - 199 mg/dL Blood 06/01/2024 11:3 9 PM ANIMAL CAREGIVER 06/01/2024 11:39 PM ANIMAL CAREGIVER Kyler Moran MD LAB POCT ORDERABLES - DEVICE Fin al Result Performing Organization Address [facility] Co de Phone Number RUBINA GUERRERO ([place]) 1 [place] [address] * POCT glucose (06/01/2024 6:18 PM ANIMAL CAREGIVER) Glucose, POC 84 70 - 199 mg/dL Blood 06/01/2024 6:18 PM ANIMAL CAREGIVER 06/01/2024 6:18 PM ANIMAL CAREGIVER Kyler Moran MD LAB POCT ORDERABLES - DEVICE Fin al Result Performing Organization Address [facility] de Phone Number RUBINA GUERRERO ([place]) 1 [place] [address] * Troponin T high-sensitivity 2-hour (06/01/2024 6:14 PM ANIMAL CAREGIVER) Trop T hs 11 <=14 ng/L Comment: Interpretive Data For further hscTnT resources including the diagnostic algorithm and an aid in interpretation, copy and paste this link: https://nrl.testcatalog.org/show/hsTrop Current Interpretive Data last revised 2020. Trop T hs delta 0 ng/L [facility] ([place]) Trop T hs interp Insignificant [facility] ([place]) Blood 06/01/2024 6:14 PM ANIMAL CAREGIVER 06/01/2024 6:17 PM ANIMAL CAREGIVER Silvia Reed MD LAB BLOOD ORDERABLE S Final Result RUB[facility] GUERRERO ([place]) 1 [facility] [place] [address] * Sepsis Lactate w/ Reflex (06/01/2024 6:14 PM ANIMAL CAREGIVER) Sepsis Lactate 1.2 0.7 - 2.0 mmol/L Blood 06/01/2024 6:14 PM ANIMAL CAREGIVER 06/01/2024 6:17 PM ANIMAL CAREGIVER Silvia Reed MD LAB BLOOD ORDERABLE S Final Result Performing Organization Address [facility] Co de Phone Number RUBINA GUERRERO ([place]) 1 [facility] [place] [address] * CT Chest PE (CTA) Abdomen Pelvis W Contrast (06/01/2024 5:04 PM ANIMAL CAREGIVER) Anatomical Region Laterality Modality Body N/A Computed Tomogra phy 06/01/2024 5:07 PM ANIMAL CAREGIVER Narrative 06/01/2024 5:27 PM ANIMAL CAREGIVER EXAM DESCRIPTION: CT HEAD WO CONTRAST; CT CHEST PE (CTA) ABDOMEN PELVIS W CONTRAST REASON FOR STUDY: Mental status change, persistent or worsening, Confusion C/o weakness x 1 week, increased confusion, chest and back pain ; sepsis C/o weakness x 1 week, increased confusion, chest and back pain TECHNIQUE: Axial images acquired through the brain without intravenous contrast. Images stored on PACS. Automated exposure control was used as a dose optimization technique for this examination. Contiguous CT angiography of the chest is obtained following uneventful intravenous administration of 100 mL Omnipaque 350. Coronal and sagittal reconstructions were generated and reviewed. In addition, three-dimensional MIP reconstructions were generated and reviewed. Images stored on PACS. Automated exposure control was used as a dose optimization technique for this examination. Contiguous CT scan of the abdomen and pelvis is obtained following uneventful intravenous administration of 100 mL Omnipaque 350. Coronal and sagittal reconstructions were generated and reviewed.Images stored on PACS. Automated exposure control was used as a dose optimization technique for this examination. COMPARISON: None available FINDINGS: Head: BRAIN: No hemorrhage, edema or mass effect. No recent infarct. Nonspecific periventricular and subcortical white matter hypoattenuation which can be seen as sequela of chronic small vessel ischemic disease. Age-appropriate cerebral and cerebellar volume loss. No acute intraventricular hemorrhage. Basal cisterns are patent. No midline shift. Old lacunar infarct or prominent Virchow Brandan space of the left basal ganglia. EXTRA-AXIAL SPACES: No fluid collections. No masses. CALVARIUM: No fracture. SINUSES/MASTOIDS: Mucosal thickening of the ethmoid air cells and bilateral maxillary sinuses. There is opacification of majority of bilateral mastoid air cells. Otherwise, no fluid or mucosal thickening. ORBITS: No significant abnormality. OTHER: No other significant abnormality. Chest, abdomen, and pelvis: Slight enlargement of the main pulmonary trunk measuring up to 31 mm which can be seen in pulmonary hypertension. No CT evidence of pulmonary embolism. There is no aortic aneurysm or aortic dissection. Mild cardiomegaly with small pericardial effusion. The esophagus is within normal limits. No pneumomediastinum or mediastinal hematoma. There is no supraclavicular, axillary, mediastinal, or hilar lymphadenopathy. Calcified mediastinal and hilar lymph nodes due to old healed granulomatous disease. There is mild scarring along the right anterior/anterolateral chest wall likely from prior surgical intervention. There are small bilateral pleural effusions. There is moderate upper lobe predominant bilateral pulmonary emphysema with a large bulla partly replacing the right upper lobe. Scattered regions of mild bilateral pulmonary parenchymal scarring. Calcified pulmonary granulomas are present. Endobronchial secretions/debris within right lower lobe bronchi either due to mucous plugging or a component of aspiration. No confluence pulmonary parenchymal consolidation or pulmonary edema. No suspicious pulmonary nodules. There is no pneumothorax. There is mild right-sided pleural thickening along the upper right hemithorax. There is hepatic surface nodularity most compatible with hepatic cirrhosis the hepatic and portal veins are patent. Calcified hepatic granulomas. There is a 3 mm hypoattenuating hepatic lesion near the dome at slice position 22 which is too small to characterize. There is cholelithiasis. No CT evidence of acute cholecystitis. No intra or extrahepatic biliary ductal dilatation. Calcified splenic granulomas are present. The spleen is otherwise unremarkable. The pancreas is unremarkable. There is an indeterminate multi-septated hypoattenuating right adrenal gland lesion measuring up to approximately 50 mm in largest dimension. There is a hypoattenuating left adrenal gland lesion measuring 15 mm. There is a lower pole left renal cyst measuring 38 mm. Additional subcentimeter hypoattenuating bilateral renal lesions are present which are too small to characterize. No hydronephrosis or hydroureter. No calculi in the urinary tract. The urinary bladder is within normal limits. Prior hysterectomy. No adnexal masses. The stomach is normal. The colon demonstrates no evidence of obstruction, inflammation, perforation, or acute enterocolitis. There is colonic diverticulosis. No CT evidence of acute appendicitis. The appendix is normal. The cecum is positioned in the right upper quadrant. There is mild wall thickening of several nondilated segments of small bowel in the left upper and midabdomen which could reflect mild early acute enteritis in the appropriate clinical setting. No small bowel obstruction. Mild rectal fecal impaction with no evidence of stercoral proctitis. Atherosclerotic calcifications of the abdominal aorta and its branches. There is no lymphadenopathy. There is no free fluid or free air. Bone windows demonstrate no acute fractures or aggressive osseous lesions. Diffuse osteopenia. Malunion of left humerus surgical neck fracture. Healed rib fractures. Severe chronic compression fracture of L1 vertebral body with near vertebral plana centrally along with osseous retropulsion resulting in central canal stenosis at this level.. Mild chronic compression fractures of T12 and T2 vertebral bodies. IMPRESSION: 1. No acute intracranial findings. 2. No CT evidence of pulmonary embolism. 3. Small bilateral pleural effusions. Moderate upper lobe predominant bilateral pulmonary emphysema with a large bulla partly replacing the right upper lobe. 4. Colonic diverticulosis. 5. Mild wall thickening of several nondilated segments of small bowel in the left upper and midabdomen which could reflect mild early acute enteritis in the appropriate clinical setting. Clinical correlation is recommended. 6. Indeterminate multi-septated hypoattenuating right adrenal gland lesion measuring up to approximately 50 mm. Comparison to prior imaging would be helpful, if available. Correlation with patient's history is recommended. If clinically indicated, dedicated adrenal protocol MRI could be considered for further evaluation and characterization. 7. Hepatic surface nodularity compatible with hepatic cirrhosis. THIS IS AN ELECTRONICALLY VERIFIED FINAL REPORT 06/01/2024 5:27 PM - Electronically signed by Laura Galvin M.D. AT: AT Report ID: [id number] Reading Location: [id number] Procedure Note Laura Galvin MD - 06/01/2024 EXAM DESCRIPTION: CT HEAD WO CONTRAST; CT CHEST PE (CTA) ABDOMEN PELVIS W CONTRAST REASON FOR STUDY: Mental status change, persistent or worsening, Confusion C/o weakness x 1 week, increased confusion, chest and back pain ; sepsis C/o weakness x 1 week, increased confusion, chest and back pain TECHNIQUE: Axial images acquired through the brain without intravenous contrast. Images stored on PACS. Automated exposure control was used asa dose optimization technique for this examination. Contiguous CT angiography of the chest is obtained following uneventful intravenous administration of 100 mL Omnipaque 350. Coronal and sagittal reconstructions were generated and reviewed. In addition,three-dimensional MIP reconstructions were generated and reviewed. Images stored on PACS. Automated exposure control was used as a dose optimization technique forthis examination. Contiguous CT scan of the abdomen and pelvis is obtained followinguneventful intravenous administration of 100 mL Omnipaque 350. Coronal and sagittal reconstructions were generated and reviewed.Images stored on PACS.Automated exposure control was used as a dose optimization technique for this examination. COMPARISON: None available FINDINGS: Head: BRAIN: No hemorrhage, edema or mass effect. No recent infarct.Nonspecific periventricular and subcortical white matter hypoattenuation which can beseen as sequela of chronic small vessel ischemic disease. Age-appropriatecerebral and cerebellar volume loss. No acute intraventricular hemorrhage. Basal cisterns are patent. No midline shift. Old lacunar infarct or prominent Virchow Brandan space of the left basal ganglia. EXTRA-AXIAL SPACES: No fluid collections. No masses. CALVARIUM: No fracture. SINUSES/MASTOIDS: Mucosal thickening of the ethmoid air cells andbilateral maxillary sinuses. There is opacification of majority of bilateralmastoid air cells. Otherwise, no fluid or mucosal thickening. ORBITS: No significant abnormality. OTHER: No other significant abnormality. Chest, abdomen, and pelvis: Slight enlargement of the main pulmonary trunk measuring up to 31 mm whichcan be seen in pulmonary hypertension. No CT evidence of pulmonary embolism. There is no aortic aneurysm or aortic dissection. Mild cardiomegaly with small pericardial effusion. The esophagus iswithin normal limits. No pneumomediastinum or mediastinal hematoma. There is no supraclavicular, axillary, mediastinal, or hilarlymphadenopathy. Calcified mediastinal and hilar lymph nodes due to old healedgranulomatous disease. There is mild scarring along the right anterior/anterolateral chest wall likely from prior surgical intervention. There are small bilateral pleural effusions. There is moderate upper lobe predominant bilateral pulmonary emphysema with a large bulla partlyreplacing the right upper lobe. Scattered regions of mild bilateral pulmonary parenchymal scarring. Calcified pulmonary granulomas are present. Endobronchial secretions/debris within right lower lobe bronchi either dueto mucous plugging or a component of aspiration. No confluence pulmonary parenchymal consolidation or pulmonary edema. No suspicious pulmonary nodules. There is no pneumothorax. There is mild right-sided pleural thickening along the upper right hemithorax. There is hepatic surface nodularity most compatible with hepatic cirrhosisthe hepatic and portal veins are patent. Calcified hepatic granulomas. Thereis a 3 mm hypoattenuating hepatic lesion near the dome at slice position 22which is too small to characterize. There is cholelithiasis. No CT evidence of acute cholecystitis. No intra or extrahepatic biliary ductaldilatation. Calcified splenic granulomas are present. The spleen is otherwise unremarkable. The pancreas is unremarkable. There is an indeterminate multi-septated hypoattenuating right adrenal gland lesion measuring up to approximately 50 mm in largest dimension. There is a hypoattenuating left adrenal gland lesion measuring 15 mm. There is a lower pole left renalcyst measuring 38 mm. Additional subcentimeter hypoattenuating bilateral renal lesions are present which are too small to characterize. Nohydronephrosis or hydroureter. No calculi in the urinary tract. The urinary bladder iswithin normal limits. Prior hysterectomy. No adnexal masses. The stomach is normal. The colon demonstrates no evidence of obstruction, inflammation, perforation, or acute enterocolitis. There is colonic diverticulosis. No CT evidence of acute appendicitis. The appendix is normal. The cecum is positioned in the right upper quadrant. There ismild wall thickening of several nondilated segments of small bowel in the left upper and midabdomen which could reflect mild early acute enteritis in the appropriate clinical setting. No small bowel obstruction. Mild rectalfecal impaction with no evidence of stercoral proctitis. Atherosclerotic calcifications of the abdominal aorta and its branches.There is no lymphadenopathy. There is no free fluid or free air. Bone windows demonstrate no acute fractures or aggressive osseous lesions. Diffuse osteopenia. Malunion of left humerus surgical neck fracture.Healed rib fractures. Severe chronic compression fracture of L1 vertebral bodywith near vertebral plana centrally along with osseous retropulsion resultingin central canal stenosis at this level.. Mild chronic compression fracturesof T12 and T2 vertebral bodies. IMPRESSION: 1. No acute intracranial findings. 2. No CT evidence of pulmonary embolism. 3. Small bilateral pleural effusions. Moderate upper lobe predominant bilateral pulmonary emphysema with a large bulla partly replacing theright upper lobe. 4. Colonic diverticulosis. 5. Mild wall thickening of several nondilated segments of small bowel inthe left upper and midabdomen which could reflect mild early acute enteritisin the appropriate clinical setting. Clinical correlation is recommended. 6. Indeterminate multi-septated hypoattenuating right adrenal glandlesion measuring up to approximately 50 mm. Comparison to prior imaging would be helpful, if available. Correlation with patient's history is recommended.If clinically indicated, dedicated adrenal protocol MRI could be consideredfor further evaluation and characterization. 7. Hepatic surface nodularity compatible with hepatic cirrhosis. THIS IS AN ELECTRONICALLY VERIFIED FINAL REPORT 06/01/2024 5:27 PM - Electronically signed by Laura Galvin M.D. AT: AT Report ID: [id number] Reading Location: [place] [address] Silvia Reed MD IMG CT PROCEDURES F inal Result * CT Head WO Contrast (06/01/2024 5:04 PM ANIMAL CAREGIVER) Anatomical Region Laterality Modality Head and Neck N/A Computed Tomogra phy 06/01/2024 5:07 PM ANIMAL CAREGIVER Narrative 06/01/2024 5:27 PM ANIMAL CAREGIVER EXAM DESCRIPTION: CT HEAD WO CONTRAST; CT CHEST PE (CTA) ABDOMEN PELVIS W CONTRAST REASON FOR STUDY: Mental status change, persistent or worsening, Confusion C/o weakness x 1 week, increased confusion, chest and back pain ; sepsis C/o weakness x 1 week, increased confusion, chest and back pain TECHNIQUE: Axial images acquired through the brain without intravenous contrast. Images stored on PACS. Automated exposure control was used as a dose optimization technique for this examination. Contiguous CT angiography of the chest is obtained following uneventful intravenous administration of 100 mL Omnipaque 350. Coronal and sagittal reconstructions were generated and reviewed. In addition, three-dimensional MIP reconstructions were generated and reviewed. Images stored on PACS. Automated exposure control was used as a dose optimization technique for this examination. Contiguous CT scan of the abdomen and pelvis is obtained following uneventful intravenous administration of 100 mL Omnipaque 350. Coronal and sagittal reconstructions were generated and reviewed.Images stored on PACS. Automated exposure control was used as a dose optimization technique for this examination. COMPARISON: None available FINDINGS: Head: BRAIN: No hemorrhage, edema or mass effect. No recent infarct. Nonspecific periventricular and subcortical white matter hypoattenuation which can be seen as sequela of chronic small vessel ischemic disease. Age-appropriate cerebral and cerebellar volume loss. No acute intraventricular hemorrhage. Basal cisterns are patent. No midline shift. Old lacunar infarct or prominent Virchow Brandan space of the left basal ganglia. EXTRA-AXIAL SPACES: No fluid collections. No masses. CALVARIUM: No fracture. SINUSES/MASTOIDS: Mucosal thickening of the ethmoid air cells and bilateral maxillary sinuses. There is opacification of majority of bilateral mastoid air cells. Otherwise, no fluid or mucosal thickening. ORBITS: No significant abnormality. OTHER: No other significant abnormality. Chest, abdomen, and pelvis: Slight enlargement of the main pulmonary trunk measuring up to 31 mm which can be seen in pulmonary hypertension. No CT evidence of pulmonary embolism. There is no aortic aneurysm or aortic dissection. Mild cardiomegaly with small pericardial effusion. The esophagus is within normal limits. No pneumomediastinum or mediastinal hematoma. There is no supraclavicular, axillary, mediastinal, or hilar lymphadenopathy. Calcified mediastinal and hilar lymph nodes due to old healed granulomatous disease. There is mild scarring along the right anterior/anterolateral chest wall likely from prior surgical intervention. There are small bilateral pleural effusions. There is moderate upper lobe predominant bilateral pulmonary emphysema with a large bulla partly replacing the right upper lobe. Scattered regions of mild bilateral pulmonary parenchymal scarring. Calcified pulmonary granulomas are present. Endobronchial secretions/debris within right lower lobe bronchi either due to mucous plugging or a component of aspiration. No confluence pulmonary parenchymal consolidation or pulmonary edema. No suspicious pulmonary nodules. There is no pneumothorax. There is mild right-sided pleural thickening along the upper right hemithorax. There is hepatic surface nodularity most compatible with hepatic cirrhosis the hepatic and portal veins are patent. Calcified hepatic granulomas. There is a 3 mm hypoattenuating hepatic lesion near the dome at slice position 22 which is too small to characterize. There is cholelithiasis. No CT evidence of acute cholecystitis. No intra or extrahepatic biliary ductal dilatation. Calcified splenic granulomas are present. The spleen is otherwise unremarkable. The pancreas is unremarkable. There is an indeterminate multi-septated hypoattenuating right adrenal gland lesion measuring up to approximately 50 mm in largest dimension. There is a hypoattenuating left adrenal gland lesion measuring 15 mm. There is a lower pole left renal cyst measuring 38 mm. Additional subcentimeter hypoattenuating bilateral renal lesions are present which are too small to characterize. No hydronephrosis or hydroureter. No calculi in the urinary tract. The urinary bladder is within normal limits. Prior hysterectomy. No adnexal masses. The stomach is normal. The colon demonstrates no evidence of obstruction, inflammation, perforation, or acute enterocolitis. There is colonic diverticulosis. No CT evidence of acute appendicitis. The appendix is normal. The cecum is positioned in the right upper quadrant. There is mild wall thickening of several nondilated segments of small bowel in the left upper and midabdomen which could reflect mild early acute enteritis in the appropriate clinical setting. No small bowel obstruction. Mild rectal fecal impaction with no evidence of stercoral proctitis. Atherosclerotic calcifications of the abdominal aorta and its branches. There is no lymphadenopathy. There is no free fluid or free air. Bone windows demonstrate no acute fractures or aggressive osseous lesions. Diffuse osteopenia. Malunion of left humerus surgical neck fracture. Healed rib fractures. Severe chronic compression fracture of L1 vertebral body with near vertebral plana centrally along with osseous retropulsion resulting in central canal stenosis at this level.. Mild chronic compression fractures of T12 and T2 vertebral bodies. IMPRESSION: 1. No acute intracranial findings. 2. No CT evidence of pulmonary embolism. 3. Small bilateral pleural effusions. Moderate upper lobe predominant bilateral pulmonary emphysema with a large bulla partly replacing the right upper lobe. 4. Colonic diverticulosis. 5. Mild wall thickening of several nondilated segments of small bowel in the left upper and midabdomen which could reflect mild early acute enteritis in the appropriate clinical setting. Clinical correlation is recommended. 6. Indeterminate multi-septated hypoattenuating right adrenal gland lesion measuring up to approximately 50 mm. Comparison to prior imaging would be helpful, if available. Correlation with patient's history is recommended. If clinically indicated, dedicated adrenal protocol MRI could be considered for further evaluation and characterization. 7. Hepatic surface nodularity compatible with hepatic cirrhosis. THIS IS AN ELECTRONICALLY VERIFIED FINAL REPORT 06/01/2024 5:27 PM - Electronically signed by Laura Galvin M.D. AT: AT Report ID: [id number] Reading Location: [id number] Procedure Note Laura Galvin MD - 06/01/2024 EXAM DESCRIPTION: CT HEAD WO CONTRAST; CT CHEST PE (CTA) ABDOMEN PELVIS W CONTRAST REASON FOR STUDY: Mental status change, persistent or worsening, Confusion C/o weakness x 1 week, increased confusion, chest and back pain ; sepsis C/o weakness x 1 week, increased confusion, chest and back pain TECHNIQUE: Axial images acquired through the brain without intravenous contrast. Images stored on PACS. Automated exposure control was used asa dose optimization technique for this examination. Contiguous CT angiography of the chest is obtained following uneventful intravenous administration of 100 mL Omnipaque 350. Coronal and sagittal reconstructions were generated and reviewed. In addition,three-dimensional MIP reconstructions were generated and reviewed. Images stored on PACS. Automated exposure control was used as a dose optimization technique forthis examination. Contiguous CT scan of the abdomen and pelvis is obtained followinguneventful intravenous administration of 100 mL Omnipaque 350. Coronal and sagittal reconstructions were generated and reviewed.Images stored on PACS.Automated exposure control was used as a dose optimization technique for this examination. COMPARISON: None available FINDINGS: Head: BRAIN: No hemorrhage, edema or mass effect. No recent infarct.Nonspecific periventricular and subcortical white matter hypoattenuation which can beseen as sequela of chronic small vessel ischemic disease. Age-appropriatecerebral and cerebellar volume loss. No acute intraventricular hemorrhage. Basal cisterns are patent. No midline shift. Old lacunar infarct or prominent Virchow Brandan space of the left basal ganglia. EXTRA-AXIAL SPACES: No fluid collections. No masses. CALVARIUM: No fracture. SINUSES/MASTOIDS: Mucosal thickening of the ethmoid air cells andbilateral maxillary sinuses. There is opacification of majority of bilateralmastoid air cells. Otherwise, no fluid or mucosal thickening. ORBITS: No significant abnormality. OTHER: No other significant abnormality. Chest, abdomen, and pelvis: Slight enlargement of the main pulmonary trunk measuring up to 31 mm whichcan be seen in pulmonary hypertension. No CT evidence of pulmonary embolism. There is no aortic aneurysm or aortic dissection. Mild cardiomegaly with small pericardial effusion. The esophagus iswithin normal limits. No pneumomediastinum or mediastinal hematoma. There is no supraclavicular, axillary, mediastinal, or hilarlymphadenopathy. Calcified mediastinal and hilar lymph nodes due to old healedgranulomatous disease. There is mild scarring along the right anterior/anterolateral chest wall likely from prior surgical intervention. There are small bilateral pleural effusions. There is moderate upper lobe predominant bilateral pulmonary emphysema with a large bulla partlyreplacing the right upper lobe. Scattered regions of mild bilateral pulmonary parenchymal scarring. Calcified pulmonary granulomas are present. Endobronchial secretions/debris within right lower lobe bronchi either dueto mucous plugging or a component of aspiration. No confluence pulmonary parenchymal consolidation or pulmonary edema. No suspicious pulmonary nodules. There is no pneumothorax. There is mild right-sided pleural thickening along the upper right hemithorax. There is hepatic surface nodularity most compatible with hepatic cirrhosisthe hepatic and portal veins are patent. Calcified hepatic granulomas. Thereis a 3 mm hypoattenuating hepatic lesion near the dome at slice position 22which is too small to characterize. There is cholelithiasis. No CT evidence of acute cholecystitis. No intra or extrahepatic biliary ductaldilatation. Calcified splenic granulomas are present. The spleen is otherwise unremarkable. The pancreas is unremarkable. There is an indeterminate multi-septated hypoattenuating right adrenal gland lesion measuring up to approximately 50 mm in largest dimension. There is a hypoattenuating left adrenal gland lesion measuring 15 mm. There is a lower pole left renalcyst measuring 38 mm. Additional subcentimeter hypoattenuating bilateral renal lesions are present which are too small to characterize. Nohydronephrosis or hydroureter. No calculi in the urinary tract. The urinary bladder iswithin normal limits. Prior hysterectomy. No adnexal masses. The stomach is normal. The colon demonstrates no evidence of obstruction, inflammation, perforation, or acute enterocolitis. There is colonic diverticulosis. No CT evidence of acute appendicitis. The appendix is normal. The cecum is positioned in the right upper quadrant. There ismild wall thickening of several nondilated segments of small bowel in the left upper and midabdomen which could reflect mild early acute enteritis in the appropriate clinical setting. No small bowel obstruction. Mild rectalfecal impaction with no evidence of stercoral proctitis. Atherosclerotic calcifications of the abdominal aorta and its branches.There is no lymphadenopathy. There is no free fluid or free air. Bone windows demonstrate no acute fractures or aggressive osseous lesions. Diffuse osteopenia. Malunion of left humerus surgical neck fracture.Healed rib fractures. Severe chronic compression fracture of L1 vertebral bodywith near vertebral plana centrally along with osseous retropulsion resultingin central canal stenosis at this level.. Mild chronic compression fracturesof T12 and T2 vertebral bodies. IMPRESSION: 1. No acute intracranial findings. 2. No CT evidence of pulmonary embolism. 3. Small bilateral pleural effusions. Moderate upper lobe predominant bilateral pulmonary emphysema with a large bulla partly replacing theright upper lobe. 4. Colonic diverticulosis. 5. Mild wall thickening of several nondilated segments of small bowel inthe left upper and midabdomen which could reflect mild early acute enteritisin the appropriate clinical setting. Clinical correlation is recommended. 6. Indeterminate multi-septated hypoattenuating right adrenal glandlesion measuring up to approximately 50 mm. Comparison to prior imaging would be helpful, if available. Correlation with patient's history is recommended.If clinically indicated, dedicated adrenal protocol MRI could be consideredfor further evaluation and characterization. 7. Hepatic surface nodularity compatible with hepatic cirrhosis. THIS IS AN ELECTRONICALLY VERIFIED FINAL REPORT 06/01/2024 5:27 PM - Electronically signed by Laura Galvin M.D. AT: AT Report ID: [id number] Reading Location: [id number] Silvia Reed MD IMG CT PROCEDURES F inal Result * ECG 12 lead (06/01/2024 4:02 PM ANIMAL CAREGIVER) 06/01/2024 4:02 PM ANIMAL CAREGIVER Narrative [facility] - 06/01/2024 7:00 PM ANIMAL CAREGIVER Vent Rate: 54 bpm RR Interval: 1097 msec OR Interval: 0 msec QRS Duration: 85 msec QT Interval: 428 msec QTC Interval: 415 msec P-R-T [place]: [address] - -22 - 53 degrees IMPRESSION: Sinus BRADYCARDIA BORDERLINE LEFT AXIS DEVIATION [QRS AXIS < -20] LOW QRS VOLTAGE IN PRECORDIAL LEADS [QRS DEFLECTION < 1.0 mV IN CHEST LEADS] NONSPECIFIC T-WAVE ABNORMALITY ABNORMAL RHYTHM ECG Electronically Signed By: Zaki Knox MD Silvia Reed MD ECG ORDERABLES Fin al Result [facility] * Blood culture Blood Peripheral (06/01/2024 3:52 PM ANIMAL CAREGIVER) Report Final Report: No growth Comment:Testing performed by : [facility], [address] [facility], [place]., [address] Blood (Peripheral) 06/01/2024 3:52 PM ANIMAL CAREGIVER 06/01/2024 6:14 PM ANIMAL CAREGIVER Narrative [facility] [place] - 06/06/2024 7:00 AM ANIMAL CAREGIVER From a different site than #1. Draw Blood cultures before administration of Antibiotics Collection->Peripheral 1. Blood cultures are incubated for 4 days on a continuously monitored blood culture system. The first report of a negative culture is issued within 24 hours of receipt of the specimen in the laboratory. 2. Positive culture results are reported as soon as they are detected. 3. The most important factor for detection of microbes in the setting of bloodstream infection is the volume of blood submitted for culture. Failure to collect an optimal blood volume can result in false negative blood cultures. 4. For pediatric patients, the recommended blood volume to collect follows a weight based strategy. See the electronic test catalog for collection instructions. 5. For positive blood cultures, a rapid molecular test may be performed for organism identification using the ayan ePlex blood culture identification panel for gram positive (BCID-GP) and gram negative (BCID-GN) organisms. This nucleic acid amplification test detects microbial DNA in positive blood culture broth. This assay has been cleared by the [place] Food and Drug Administration and its performance characteristics have been verified by the [facility] Microbiology Laboratory. For questions about this culture, contact the Microbiology Laboratory at [phone]. Interpretive data was last revised on 24. Silvia Reed MD LAB MICROBIOLOGY - GENERAL ORDERABLES Final Result [facility]) [address] [facility] Department [place] [address] * Blood culture Blood Peripheral (06/01/2024 3:52 PM ANIMAL CAREGIVER) Report Final Report: No growth Comment:Testing performed by : [facility], [address] [place] [address] Blood (Peripheral) 06/01/2024 3:52 PM ANIMAL CAREGIVER 06/01/2024 6:14 PM ANIMAL CAREGIVER Narrative [facility] ([place]) - 06/06/2024 7:00 AM ANIMAL CAREGIVER Draw Blood cultures before administration of Antibiotics Collection->Peripheral 1. Blood cultures are incubated for 4 days on a continuously monitored blood culture system. The first report of a negative culture is issued within 24 hours of receipt of the specimen in the laboratory. 2. Positive culture results are reported as soon as they are detected. 3. The most important factor for detection of microbes in the setting of bloodstream infection is the volume of blood submitted for culture. Failure to collect an optimal blood volume can result in false negative blood cultures. 4. For pediatric patients, the recommended blood volume to collect follows a weight based strategy. See the electronic test catalog for collection instructions. 5. For positive blood cultures, a rapid molecular test may be performed for organism identification using the ayan ePlex blood culture identification panel for gram positive (BCID-GP) and gram negative (BCID-GN) organisms. This nucleic acid amplification test detects microbial DNA in positive blood culture broth. This assay has been cleared by the [place] Food and Drug Administration and its performance characteristics have been verified by the [facility] Microbiology Laboratory. For questions about this culture, contact the Microbiology Laboratory at [phone]. Interpretive data was last revised on 24. Silvia Reed MD LAB MICROBIOLOGY - GENERAL ORDERABLES Final Result Performing Organization Address City/[facility]/ZIP Co de Phone Number [facility] [place]) [address] [place] [phone] * Troponin T high-sensitivity series (baseline, 2hr, 4hr, 6hr) (06/01/2024 3:28 PM ANIMAL CAREGIVER) Pathologist [facility] Trop T hs 11 <=14 ng/L Comment: Interpretive Data For further hscTnT resources including the diagnostic algorithm and an aid in interpretation, copy and paste this link: [email or web address].testcatalog.org/show/[email or web address] Current Interpretive Data last revised 2020. Blood 06/01/2024 3:28 PM ANIMAL CAREGIVER 06/01/2024 3:33 PM ANIMAL CAREGIVER Silvia Reed MD LAB BLOOD ORDERABLE S Final Result Performing Organization Address [facility] Co de Phone Number [facility] ([place]) [address] [place] [id number] * Influenza A/B, RSV, and COVID-19 PCR Nasopharyngeal (06/01/2024 3:28 PM ANIMAL CAREGIVER) [facility] COVID-19 RNA Negative Negative Influenza A RNA Negative Negative [facility] ([place]) Influenza B RNA Negative Negative [facility] ([place]) RSV RNA Negative Negative [facility] ([place]) Comment: Interpretive data: Testing performed by [facility]. This test is performed using the VirnetX Xpert Xpress CoV-2/Flu/RSV plus assay. This is a multiplex, real- time reverse transcriptase PCR assay intended for the qualitative detection of nucleic acid from SARS-CoV-2, influenza A, influenza B, and respiratory syncytial virus. This assay has been cleared by the [place] Food and Drug administration. The performance characteristics have been verified by the [facility]. Results must be considered in the clinical context, and a negative result does not rule out infection. Interpretive Data last revised 2023 Nasopharyngeal 06/01/2024 3: 28 PM ANIMAL CAREGIVER 06/01/2024 3:33 PM ANIMAL CAREGIVER Narrative [facility] ([place]) - 06/01/2024 4:19 PM ANIMAL CAREGIVER Is the Patient experiencing symptoms consistent with COVID?->Yes Silvia Reed MD LAB MICROBIOLOGY - GENERAL ORDERABLES Final Result [facility] ([place]) [address] [facility] [place] [address] * (ABNORMAL) Sepsis Lactate w/ Reflex (06/01/2024 3:28 PM ANIMAL CAREGIVER) Pathologist [facility] Sepsis Lactate 2.2(H) 0.7 - 2.0 mmol/L Blood 06/01/2024 3:28 PM ANIMAL CAREGIVER 06/01/2024 3:33 PM ANIMAL CAREGIVER Silvia Reed MD LAB BLOOD ORDERABLE S Final Result [facility] ([place]) [address] [place] [address] [place] [address] * eGFR (06/01/2024 3:28 PM ANIMAL CAREGIVER) eGFR >90 >=60 mL/min/1. 73 m2 Comment: Interpretive Data Reference Interval Normal >/= 90 mL/min/1.73m2 Mildly decreased* 60 - 89 mL/min/1.73m2 Mildly to moderately decreased 45 - 59 mL/min/1.73m2 Moderately to severely decreased 30 - 44 mL/min/1.73m2 Severely decreased 15 - 29 mL/min/1.73m2 Kidney Failure < 15 mL/min/1.73m2 *Relative to young adult level Estimated glomerular filtration rate is determined by the 2020 CKD-EPI equation recommended by the National Kid[employer] (A Unifying Approach to GFR Estimation: Recommendations of the NKF-ASK Task Force on Reassessing the Inclusion of Race in Diagnosing Kidney Disease, JASN 2020). The CKD-EPI equation should not be used for patients with unstable renal function and has not been validated in children and those over 70. Current interpretive data was last reviewed 2021. Blood 06/01/2024 3:28 PM ANIMAL CAREGIVER 06/01/2024 3:33 PM ANIMAL CAREGIVER us Silvia Reed MD LAB BLOOD ORDERABLE S Final Result [facility] ([place]) [address] [facility] Department [place] [address] * Differential, auto (06/01/2024 3:28 PM ANIMAL CAREGIVER) Neutrophil abs 3.6 1.5 - 6.5 K/cumm Imm gran abs 0.0 0.0 - 0.1 K/cumm [facility] ([place]) Lymphocyte abs 1.1 0.8 - 3.3 K/cumm [facility] ([place]) Monocyte abs 0.4 0.2 - 0.8 K/cumm [facility] ([place]) Eosinophil abs 0.1 0.0 - 0.5 K/cumm [facility] ([place]) Basophil abs 0.1 0.0 - 0.1 K/cumm [facility] ([place]) Neutrophil pct 68.9 % [facility] ([place]) Comment: Interpretive Data Percent cell count reference ranges are not reported, since discordance with absolute values may lead to misinterpretation of CBC data. Current Interpretive Data was last revised on 2017. Imm gran pct 0.2 % [facility] ([place]) Comment: Interpretive Data Percent cell count reference ranges are not reported, since discordance with absolute values may lead to misinterpretation of CBC data. Current Interpretive Data was last revised on 2017. Lymphocyte pct 21.1 % [facility] ([place]) Comment: Interpretive Data Percent cell count reference ranges are not reported, since discordance with absolute values may lead to misinterpretation of CBC data. Current Interpretive Data was last revised on 2017. Monocyte pct 7.1 % [facility] ([place]) Comment: Interpretive Data Percent cell count reference ranges are not reported, since discordance with absolute values may lead to misinterpretation of CBC data. Current Interpretive Data was last revised on 2017. Eosinophil pct 1.5 % [facility] ([place]) Comment: Interpretive Data Percent cell count reference ranges are not reported, since discordance with absolute values may lead to misinterpretation of CBC data. Current Interpretive Data was last revised on 2017. Basophil pct 1.2 % [facility] ([place]) Comment: Interpretive Data Percent cell count reference ranges are not reported, since discordance with absolute values may lead to misinterpretation of CBC data. Current Interpretive Data was last revised on 2017. Blood 06/01/2024 3:28 PM ANIMAL CAREGIVER 06/01/2024 3:33 PM ANIMAL CAREGIVER us Silvia Reed MD LAB BLOOD ORDERABLE S Final Result [facility] ([place]) 1 [facility] Department [place] [address] * Pro B-type natriuretic peptide (06/01/2024 3:28 PM ANIMAL CAREGIVER) NT-proBNP 138 <=300 pg/mL Comment: Interpretive Comments: A. Dyspnea in Acute Care Setting All Ages: < 300 pg/ml, acute heart failure unlikely. < 50 yrs: 300 - 450 pg/ml, further investigation warranted. > 450 pg/ml, acute heart failure likely. 50 - 74 yrs: 300 - 900 pg/ml, further investigation warranted. > 900 pg/ml, acute heart failure likely . > or = 75 yrs: 450 - 1800 pg/ml, further investigation warranted. > 1800 pg/ml, acute heart failure likely. B. Non-acute Setting < 75 yrs < 125 pg/ml, rules out heart failure. > or = 125 pg/ml, further investigation warranted. > or = 75 yrs < 450 pg/ml, rules out heart failure. > or = 450 pg/ml, further investigation warranted. - Knowledge of each individual patient's NT-proBNP range may be more useful than using similar cut-points for every patient. Please note that marked elevations in NT-proBNP levels may be observed in state other than Left Ventricular Congestive Failure, including: acute coronary syndromes, right heart strain/failure (including pulmonary embolism and cor pulmonale), critical illness, renal failure, as well as advanced age. - References: 1. Yasmeen OLVERA et.al. Eur Heart J. 2006:27:330-337. 2. Luis RW, Corwin HOLCOMB. J. AM Tony Cardiol: Cardiovasc Imag. 2009;2: 216- 225. Interpretive Data Last Revised Date: 2017. Blood 06/01/2024 3:28 PM ANIMAL CAREGIVER 06/01/2024 3:33 PM ANIMAL CAREGIVER us Silvia Reed MD LAB BLOOD ORDERABLE S Final Result [facility] ([place]) [facility] Department [place] [address] * (ABNORMAL) CBC with auto differential (06/01/2024 3:28 PM ANIMAL CAREGIVER) WBC 5.2 3.8 - 9.9 K/cumm Hgb 11.3(L) 11.9 - 15.5 g/dL [facility] ([place]) Hct 38.5 35.6 - 45.5 % [facility]) Plt 205 150 - 400 K/cumm [facility] ([place]) MPV 10.9 9.1 - 12.3 fL [facility] ([place]) RBC 4.05 3.90 - 5.20 M/cumm [facility] ([place]) MCV 95.1 81.3 - 96.4 fL [facility] ([place]) MCH 27.9 27.1 - 33.3 pg [facility] ([place]) MCHC 29.4(L) 32.3 - 35.7 g/dL [facility] ([place]) RDW CV 17.3(H) 11.1 - 14.9 % [facility] ([place]) RDW SD 61.3(H) 35.7 - 48.1 fL [facility] ([place]) NRBC abs 0.00 0.00 - 0.01 K/cumm [facility] Blood 06/01/2024 3:28 PM ANIMAL CAREGIVER 06/01/2024 3:33 PM ANIMAL CAREGIVER Silvia Reed MD LAB BLOOD ORDERABLE S Final Result Performing Organization Address [facility] Co de Phone Number [facility] ([place]) 1 [facility] [place] [address] * (ABNORMAL) Protime-INR (06/01/2024 3:28 PM ANIMAL CAREGIVER) PT 15.4(H) 9.7 - 13.0 sec [facility] ([place]) INR 1.42(H) 0.90 - 1.20 [facility] ([place]) Comment: Interpretive data Oral anticoagulant therapeutic ranges: Venous thromboembolism prophylaxis or treatment: 2.0-3.0 CARDIOLOGY Standard range: 2.0-3.0 High-intensity range: 2.5-3.5 Refer to indication-specific guidelines for appropriate target ranges for prosthetic heart valve replacement. Current interpretive data was last revised on 2019. Blood 06/01/2024 3:2 8 PM ANIMAL CAREGIVER 06/01/2024 3:33 PM ANIMAL CAREGIVER Silvia Reed MD LAB BLOOD ORDERABLE S Final Result Performing Organization Address [facility] Co de Phone Number [facility] ([place]) 1 [facility] [place] [address] * (ABNORMAL) Comprehensive metabolic panel (06/01/2024 3:28 PM ANIMAL CAREGIVER) Sodium 140 135 - 145 mmol/L Potassium, pl 3.9 3.3 - 4.9 mmol/L [facility] ([place]) Chloride 100 97 - 110 mmol/L [facility] ([place]) CO2 32 22 - 32 mmol/L [facility] ([place] Anion gap 8 2 - 15 mmol/L [facility] ([place]) BUN 6 6 - 25 mg/dL [facility] ([place]) Creatinine 0.63 0.60 - 1.10 mg/dL [facility] ([place]) Glucose 147 70 - 199 mg/dL [facility] ([place]) Comment: Interpretive Data Fasting glucose >/= 126 mg/dl is diagnostic for diabetes. Fasting is defined as no caloric intake for at least 8 hours. Fasting glucose between 100 mg/dl to 125 mg/dl is diagnostic of prediabetes. In a patient with classic symptoms of hyperglycemia or hyperglycemic crisis, a random glucose >/= 200 mg/dl is diagnostic for diabetes. In the absence of unequivocal hyperglycemia, results should be confirmed by repeat testing. The classification and Diagnosis of Diabetes Diabetes Care 2021; 46: S19-S40. Current interpretive data was last revised 2022. Calcium 8.7 8.5 - 10.3 mg/dL [facility] ([place]) Bilirubin, total <0.2 0.1 - 1.2 mg/dL [facility] ([place]) Protein, pl 6.8 6.5 - 8.5 g/dL [facility] ([place]) Albumin 3.9 3.5 - 5.0 g/dL [facility] ([place]) Alk phos 92 40 - 130 Units/L [facility] ([place]) ALT 27 7 - 45 Units/L [facility] ([place]) AST 51(H) 10 - 45 Units/L [facility] ([place]) Blood 06/01/2024 3:28 PM ANIMAL CAREGIVER 06/01/2024 3:33 PM ANIMAL CAREGIVER us Silvia Reed MD LAB BLOOD ORDERABLE S Final Result [facility] ([place]) 1 [facility] Department [place] [address] from Last 3 [place] [address] [employer] MED[employer]ARE [employer]RO[employer] [facility] Address: [address] [address] [place] [address] Advance Directives For more information, please contact: [phone] Documents on File Type Date Recorded Patient Union Organiser Expl anation ADVANCE DIRECTIVE 06/07/2024 1:48 PM POLST - Phys Order for PT Preferences * Full Code (Latest Code Status on File) Date Activated Date Inactivated Comments 06/01/2024 6:21 PM 06/07/2024 12:21 AM Care Teams Gas Station Attendant Relationship Specialty Start Date End Date Anand Sol MD [address] [place] [address] PCP - General Internal Medicine 07/11/24
--- OUTSIDE RECORDS SUMMARY | 2024-08-15 07:41 | XMS_ITS | Encounter Summary ---
Author Organization [facility] Healthcare Address [address] [place] [address] Care Team Providers Care Rock Climbing Instructor Name Role Phone Anand Sol MD Primary Care Provider [phone] Encounter Details Date Type Department Care Team (Late st Contact Info) Description 07/22/2024 Results Follow-Up [facility] Cardiology [address] [place] [address] Elise Valadez RN Social History Tobacco Use Types Packs/Day Years Used Date Smoking Tobacco: Former Cigarettes Personal Safety Answer Date Recorded Have you ever been in or are you currently in a harmful physical or emotional relationship or is someone making you feel afraid or unsafe? 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
--- OUTSIDE RECORDS SUMMARY | 2024-08-15 07:41 | XMS_ITS | Clinical Summary ---
Author Organization [facility] [address] Address [address] [place] [address] Care Team Providers Care Atm Servicer Name Role Phone Anand Sol MD Primary Care Provider [phone] Allergies Active Allergy Reactions Criticality Noted Date [...] units 301-400-14 units Greater than 400 call Active nystatin powder Apply topically daily as [...] indwelling urinary catheter type, initial encounter 06/01/2024 Encounters Date Type Department Care Team Description 07/22/2024 Telephone [place] [address] [place] [phone] Becky Villa NP 07/22/2024 Results Follow-Up [place] [address] [place] [phone] Elise Valadez RN 07/11/2024 11:30 AM CDT Office Visit [place] [address] [place] [phone] Bibiana Prince NP Bradycardia (Primary Dx); Paroxysmal atrial fibrillation (HCC); Chronic diastolic congestive heart failure (HCC); Hospital discharge follow-up 06/28/2024 Telephone [place] [address] [place] [phone] Becky Villa NP 06/24/2024 Orders Only [place] [address] [place] [phone] Becky Villa NP 06/23/2024 1:30 PM SUPERVISOR ACCOUNTS RECEIVABLE Ancillary Procedure [place] [address] [place] [phone] Bradycardia 06/23/2024 Orders Only [place] [address] [place] [phone] Becky Villa NP Bradycardia (Primary Dx) 06/06/2024 8:13 PM SUPERVISOR ACCOUNTS RECEIVABLE - 06/06/2024 11:59 PM SUPERVISOR ACCOUNTS RECEIVABLE Hospital Encounter [facility] Emergency, Room R Discharge Disposition: Discharge to home or self care 06/01/2024 3:06 PM SUPERVISOR ACCOUNTS RECEIVABLE - 06/06/2024 8:15 PM SUPERVISOR ACCOUNTS RECEIVABLE Hospital Encounter [facility] Acute Medicine [address] [place] [address] Silvia Reed MD Saeed, Salman, MD Sargsyan, Narine, MD Urinary tract infection associated with catheterization of urinary tract, unspecified indwelling urinary catheter type, initial encounter (Primary Dx); Confusion; Generalized weakness; Persistent headaches Discharge Disposition: Discharge to SNF from Last 3 Months Social History Tobacco Use Types Packs/Day Years [...] on file Legal Sex Female 9:11 AM SUPERVISOR ACCOUNTS RECEIVABLE Gender Identity Not on file Sexual Orientation Not on file Obstetrics History Last Filed Vital Signs Vital Sign Reading Time Taken Comments Blood Pressure 106/62 07/11/2024 11:30 AM CDT Pulse 65 07/11/2024 11:30 AM CDT Temperature 36.3 C (97.3 F) 06/06/2024 7:49 PM SUPERVISOR ACCOUNTS RECEIVABLE Respiratory Rate 20 06/06/2024 7:49 PM SUPERVISOR ACCOUNTS RECEIVABLE Oxygen Saturation 95% 07/11/2024 11:30 AM CDT Inhaled Oxygen Concentration - - Weight 90.7 kg (200 lb) 07/11/2024 11:30 AM CDT Height 170.2 cm (5' 7 ) 07/11/2024 11:30 AM CDT Body Mass Index 31.32 07/11/2024 11:30 AM CDT Plan of Treatment Health Maintenance Due Date Last Done Comments Breast Cancer Screening-Mammogram 1950 Colon Cancer Screening-Colonoscopy 1950 Depression Screening 1950 Hepatitis C Screening 1950 Osteoporosis Screening-Bone Density Scan 1950 DTaP/Tdap/Td Vaccine (1 - Tdap) 1960 Hepatitis B Screening 11/16/1967 Pneumococcal vaccine 65+ (1 of 2 - PCV) 1968 Zoster Vaccine (1 of 2) 1968 Well Visit 65+ 2014 Covid-19 Vaccine (2 - Pfizer risk series) 02/19/2022 01/29/2022 Influenza Vaccine (Season Ended) 2024 Fall Risk Assessment 06/06/2025 06/06/2024 Procedures Procedure Name Priority Date/Time Associated Diagnosis Comments MCT - MOBILE CARDIAC TELEMETRY EVENT MONITOR Routine 06/23/2024 11:50 AM SUPERVISOR ACCOUNTS RECEIVABLE Bradycardia CARDIOLOGY DOCUMENT SCAN Routine 06/21/2024 3:21 PM SUPERVISOR ACCOUNTS RECEIVABLE CARDIOLOGY DOCUMENT SCAN Routine 06/20/2024 2:49 PM SUPERVISOR ACCOUNTS RECEIVABLE POCT GLUCOSE DEVICE Routine 06/06/2024 4 :44 PM SUPERVISOR ACCOUNTS RECEIVABLE POCT GLUCOSE DEVICE Routine 06/06/2024 1 1:50 AM SUPERVISOR ACCOUNTS RECEIVABLE POCT GLUCOSE DEVICE Routine 06/06/2024 7 :53 AM SUPERVISOR ACCOUNTS RECEIVABLE EGFR Routine 06/06/2024 2:13 AM SUPERVISOR ACCOUNTS RECEIVABLE DIFFERENTIAL AUTO Routine 06/06/2024 2:1 3 AM SUPERVISOR ACCOUNTS RECEIVABLE MAGNESIUM Routine 06/06/2024 2:13 AM SUPERVISOR ACCOUNTS RECEIVABLE COMPREHENSIVE METABOLIC PANEL Routine 06/06/2024 2:13 AM SUPERVISOR ACCOUNTS RECEIVABLE CBC WITH AUTO DIFFERENTIAL Routine 06/06/2024 2:13 AM SUPERVISOR ACCOUNTS RECEIVABLE POCT GLUCOSE DEVICE Routine 06/06/2024 2 :08 AM SUPERVISOR ACCOUNTS RECEIVABLE POCT GLUCOSE DEVICE Routine 06/05/2024 8 :28 PM SUPERVISOR ACCOUNTS RECEIVABLE POCT GLUCOSE DEVICE Routine 06/05/2024 5 :06 PM SUPERVISOR ACCOUNTS RECEIVABLE POCT GLUCOSE DEVICE Routine 06/05/2024 1 2:12 PM SUPERVISOR ACCOUNTS RECEIVABLE POCT GLUCOSE DEVICE Routine 06/05/2024 7 :37 AM SUPERVISOR ACCOUNTS RECEIVABLE EGFR Routine 06/05/2024 2:44 AM SUPERVISOR ACCOUNTS RECEIVABLE DIFFERENTIAL AUTO Routine 06/05/2024 2:4 4 AM SUPERVISOR ACCOUNTS RECEIVABLE MAGNESIUM Routine 06/05/2024 2:44 AM SUPERVISOR ACCOUNTS RECEIVABLE COMPREHENSIVE METABOLIC PANEL Routine 06/05/2024 2:44 AM SUPERVISOR ACCOUNTS RECEIVABLE CBC WITH AUTO DIFFERENTIAL Routine 06/05/2024 2:44 AM SUPERVISOR ACCOUNTS RECEIVABLE POCT GLUCOSE DEVICE Routine 06/05/2024 2 :12 AM SUPERVISOR ACCOUNTS RECEIVABLE POCT GLUCOSE DEVICE Routine 06/04/2024 8 :26 PM SUPERVISOR ACCOUNTS RECEIVABLE CT HEAD WO CONTRAST ED Urgent/IP Urgent 06/04/2024 5:05 PM SUPERVISOR ACCOUNTS RECEIVABLE POCT GLUCOSE DEVICE Routine 06/04/2024 4 :38 PM SUPERVISOR ACCOUNTS RECEIVABLE POCT GLUCOSE DEVICE Routine 06/04/2024 1 1:52 AM SUPERVISOR ACCOUNTS RECEIVABLE POCT GLUCOSE DEVICE Routine 06/04/2024 7 :56 AM SUPERVISOR ACCOUNTS RECEIVABLE EGFR Routine 06/04/2024 3:21 AM SUPERVISOR ACCOUNTS RECEIVABLE DIFFERENTIAL AUTO Routine 06/04/2024 3:2 1 AM SUPERVISOR ACCOUNTS RECEIVABLE MAGNESIUM Routine 06/04/2024 3:21 AM SUPERVISOR ACCOUNTS RECEIVABLE COMPREHENSIVE METABOLIC PANEL Routine 06/04/2024 3:21 AM SUPERVISOR ACCOUNTS RECEIVABLE CBC WITH AUTO DIFFERENTIAL Routine 06/04/2024 3:21 AM SUPERVISOR ACCOUNTS RECEIVABLE POCT GLUCOSE DEVICE Routine 06/04/2024 1 :58 AM SUPERVISOR ACCOUNTS RECEIVABLE POCT GLUCOSE DEVICE Routine 06/03/2024 1 1:55 PM SUPERVISOR ACCOUNTS RECEIVABLE POCT GLUCOSE DEVICE Routine 06/03/2024 8 :37 PM SUPERVISOR ACCOUNTS RECEIVABLE POCT GLUCOSE DEVICE Routine 06/03/2024 5 :14 PM SUPERVISOR ACCOUNTS RECEIVABLE POCT GLUCOSE DEVICE Routine 06/03/2024 1 1:51 AM SUPERVISOR ACCOUNTS RECEIVABLE POCT GLUCOSE DEVICE Routine 06/03/2024 7 :23 AM SUPERVISOR ACCOUNTS RECEIVABLE POCT GLUCOSE DEVICE Routine 06/03/2024 2 :21 AM SUPERVISOR ACCOUNTS RECEIVABLE EGFR Routine 06/03/2024 2:18 AM SUPERVISOR ACCOUNTS RECEIVABLE DIFFERENTIAL AUTO Routine 06/03/2024 2:1 8 AM SUPERVISOR ACCOUNTS RECEIVABLE MAGNESIUM Routine 06/03/2024 2:18 AM SUPERVISOR ACCOUNTS RECEIVABLE COMPREHENSIVE METABOLIC PANEL Routine 06/03/2024 2:18 AM SUPERVISOR ACCOUNTS RECEIVABLE CBC WITH AUTO DIFFERENTIAL Routine 06/03/2024 2:18 AM SUPERVISOR ACCOUNTS RECEIVABLE POCT GLUCOSE DEVICE Routine 06/02/2024 8 :40 PM SUPERVISOR ACCOUNTS RECEIVABLE POCT GLUCOSE DEVICE Routine 06/02/2024 4 :30 PM SUPERVISOR ACCOUNTS RECEIVABLE POCT GLUCOSE DEVICE Routine 06/02/2024 1 1:30 AM SUPERVISOR ACCOUNTS RECEIVABLE POCT GLUCOSE DEVICE Routine 06/02/2024 8 :26 AM SUPERVISOR ACCOUNTS RECEIVABLE PROCALCITONIN Add-On 06/02/2024 4:52 AM SUPERVISOR ACCOUNTS RECEIVABLE EGFR Routine 06/02/2024 4:52 AM SUPERVISOR ACCOUNTS RECEIVABLE DIFFERENTIAL AUTO Routine 06/02/2024 4:5 2 AM SUPERVISOR ACCOUNTS RECEIVABLE MAGNESIUM Routine 06/02/2024 4:52 AM SUPERVISOR ACCOUNTS RECEIVABLE COMPREHENSIVE METABOLIC PANEL Routine 06/02/2024 4:52 AM SUPERVISOR ACCOUNTS RECEIVABLE CBC WITH AUTO DIFFERENTIAL Routine 06/02/2024 4:52 AM SUPERVISOR ACCOUNTS RECEIVABLE POCT GLUCOSE DEVICE Routine 06/02/2024 4 :45 AM SUPERVISOR ACCOUNTS RECEIVABLE POCT GLUCOSE DEVICE Routine 06/02/2024 2 :19 AM SUPERVISOR ACCOUNTS RECEIVABLE POCT GLUCOSE DEVICE Routine 06/01/2024 1 1:39 PM SUPERVISOR ACCOUNTS RECEIVABLE POCT GLUCOSE DEVICE Routine 06/01/2024 6 :18 PM SUPERVISOR ACCOUNTS RECEIVABLE SEPSIS LACTATE WITH REFLEX Timed 06/01/2024 6:14 PM SUPERVISOR ACCOUNTS RECEIVABLE TROPONIN T HIGH-SENSITIVITY 2-HOUR Timed 06/01/2024 6:14 PM SUPERVISOR ACCOUNTS RECEIVABLE CT CHEST PE ABDOMEN PELVIS W CONTRAST ED 06/01/2024 5:04 PM SUPERVISOR ACCOUNTS RECEIVABLE CT HEAD WO CONTRAST ED 06/01/2024 5 :04 PM SUPERVISOR ACCOUNTS RECEIVABLE ECG 12-LEAD STAT 06/01/2024 4:02 PM SUPERVISOR ACCOUNTS RECEIVABLE BLOOD CULTURE STAT 06/01/2024 3:52 PM SUPERVISOR ACCOUNTS RECEIVABLE BLOOD CULTURE STAT 06/01/2024 3:52 PM SUPERVISOR ACCOUNTS RECEIVABLE EGFR STAT 06/01/2024 3:28 PM SUPERVISOR ACCOUNTS RECEIVABLE DIFFERENTIAL AUTO STAT 06/01/2024 3:2 8 PM SUPERVISOR ACCOUNTS RECEIVABLE TROPONIN T HIGH-SENSITIVITY SERIES (BASELINE, 2HR, 4HR, 6HR) STAT 06/01/2024 3:28 PM SUPERVISOR ACCOUNTS RECEIVABLE PROTIME-INR STAT 06/01/2024 3:28 PM SUPERVISOR ACCOUNTS RECEIVABLE SEPSIS LACTATE WITH REFLEX STAT 06/01/2024 3:28 PM SUPERVISOR ACCOUNTS RECEIVABLE COMPREHENSIVE METABOLIC PANEL STAT 06/01/2024 3:28 PM SUPERVISOR ACCOUNTS RECEIVABLE CBC WITH AUTO DIFFERENTIAL STAT 06/01/2024 3:28 PM SUPERVISOR ACCOUNTS RECEIVABLE PRO B-TYPE NATRIURETIC PEPTIDE STAT 06/01/2024 3:28 PM SUPERVISOR ACCOUNTS RECEIVABLE INFLUENZA A/B, RSV, AND COVID-19 PCR STAT 06/01/2024 3:28 PM SUPERVISOR ACCOUNTS RECEIVABLE from Last 3 Months Results * MCT Mobile Cardiac Telemetry Event Monitor (06/23/2024 11:50 AM SUPERVISOR ACCOUNTS RECEIVABLE) Anatomical Region Laterality Modality Electrocardiogra phy Narrative 07/07/2024 12:18 PM CDT Images from the original result were not included. AMBULATORY SENIOR SALES REPRESENTATIVE REPORT Patient Name: Marleni Mcgrath Date of : 1950 Requesting Physician: Becky Villa NP Date of Interpretation: 07/07/24 Type of Monitor: 12 Day Mobile Cardiac Outpatient Farmworker Machine Date of the Study / Enrollment Period: [...] No patient reported symptoms. Jim Garcia M.D., [facility] 07/07/24 Becky Villa NP CV CARDIAC SERVICES PROCEDUR ES Final Result * Cardiology Document Scan (06/21/2024 3:21 PM SUPERVISOR ACCOUNTS RECEIVABLE) Anatomical Region Laterality Modality Other Becky Villa NP CV CARDIAC SERVICES PROCEDUR ES Final Result * Cardiology Document Scan (06/20/2024 2:49 PM SUPERVISOR ACCOUNTS RECEIVABLE) Anatomical Region Laterality Modality Other Becky Villa NP CV CARDIAC SERVICES PROCEDUR ES Final Result * (ABNORMAL) POCT glucose (06/06/2024 4:44 PM SUPERVISOR ACCOUNTS RECEIVABLE) Pathologist [facility] Glucose, POC 211(H) 70 - 199 mg/dL Blood 06/06/2024 4:44 PM SUPERVISOR ACCOUNTS RECEIVABLE 06/06/2024 4:44 PM SUPERVISOR ACCOUNTS RECEIVABLE Zahraa Coon MD LAB POCT ORDERABLES - DEVICE Final Result Performing Organization Address City/[facility]/ZIP Co de Phone Number [facility] (ROM[place]) 1 [facility] [place] [address] * POCT glucose (06/06/2024 11:50 AM SUPERVISOR ACCOUNTS RECEIVABLE) [facility] Glucose, POC 167 70 - 199 mg/dL Blood 06/06/2024 11:5 0 AM SUPERVISOR ACCOUNTS RECEIVABLE 06/06/2024 11:50 AM SUPERVISOR ACCOUNTS RECEIVABLE Zahraa Coon MD LAB POCT ORDERABLES - DEVICE Final Result Performing Organization Address City/[facility] Co de Phone Number [facility] ([place]) 1 [facility] [place] [address] * POCT glucose (06/06/2024 7:53 AM SUPERVISOR ACCOUNTS RECEIVABLE) [facility] Glucose, POC 134 70 - 199 mg/dL Blood 06/06/2024 7:53 AM SUPERVISOR ACCOUNTS RECEIVABLE 06/06/2024 7:53 AM SUPERVISOR ACCOUNTS RECEIVABLE Zahraa Coon MD LAB POCT ORDERABLES - DEVICE Final Result Performing Organization Address City/[facility]/ZIP Co de Phone Number [facility] ([place]) 1 [facility] [place] [address] * eGFR (06/06/2024 2:13 AM SUPERVISOR ACCOUNTS RECEIVABLE) [facility] eGFR >90 >=60 mL/min/1. 73 m2 Comment: [...] last reviewed 2021. Blood 06/06/2024 2:13 AM SUPERVISOR ACCOUNTS RECEIVABLE 06/06/2024 2:37 AM SUPERVISOR ACCOUNTS RECEIVABLE us Fabrizio Fung MD LAB BLOOD ORDERABLES Final Resu lt [facility] ([place]) 1 [facility] Department [place] [address] * Differential, auto (06/06/2024 2:13 AM SUPERVISOR ACCOUNTS RECEIVABLE) Neutrophil abs 4.8 1.5 - 6.5 K/cumm [...] revised on 2017. Blood 06/06/2024 2:13 AM SUPERVISOR ACCOUNTS RECEIVABLE 06/06/2024 2:35 AM SUPERVISOR ACCOUNTS RECEIVABLE us Fabrizio Fung MD LAB BLOOD ORDERABLES Final Resu lt [facility] ([place]) 1 [facility] Department [place] [address] * (ABNORMAL) CBC with auto differential (06/06/2024 2:13 AM SUPERVISOR ACCOUNTS RECEIVABLE) WBC 7.3 3.8 - 9.9 K/cumm Hgb 10.2(L) 11.9 - 15.5 g/dL [facility] ([place]) Hct 33.9(L) 35.6 - 45.5 % [facility] ([place]) Plt 182 150 - 400 K/cumm [facility] ([place]) MPV 10.9 9.1 - 12.3 [...] [facility] ([place]) Blood 06/06/2024 2:13 AM SUPERVISOR ACCOUNTS RECEIVABLE 06/06/2024 2:35 AM SUPERVISOR ACCOUNTS RECEIVABLE Fabrizio Fung MD LAB BLOOD ORDERABLES Final Resu lt Performing Organization Address City/[facility] Co de Phone Number [facility] 1 [facility] [place] [address] * Magnesium (06/06/2024 2:13 AM SUPERVISOR ACCOUNTS RECEIVABLE) [facility] Magnesium 2.0 1.4 - 2.5 mg/dL Blood 06/06/2024 2:13 AM SUPERVISOR ACCOUNTS RECEIVABLE 06/06/2024 2:37 AM SUPERVISOR ACCOUNTS RECEIVABLE Fabrizio Fung MD LAB BLOOD ORDERABLES Final Resu lt Performing Organization Address City/[facility] Co de Phone Number [facility] ([place]) 1 [facility] [place] [address] * (ABNORMAL) Comprehensive metabolic panel (06/06/2024 2:13 AM SUPERVISOR ACCOUNTS RECEIVABLE) Pathologist [facility] Sodium 142 135 - 145 mmol/L Potassium, pl 3.9 3.3 - 4.9 mmol/L [facility] ([place] Chloride 103 97 - 110 mmol/L [facility] ([place]) CO2 28 22 - 32 mmol/L [facility] ([place] Anion gap 11 2 - 15 mmol/L [facility] ([place]) BUN 13 6 - 25 mg/dL [facility] ([place]) Creatinine 0.67 0.60 - 1.10 mg/dL [facility] ([place]) Glucose 161 70 - 199 mg/dL [facility] ([place]) [...] [facility] ([place]) Blood 06/06/2024 2:13 AM SUPERVISOR ACCOUNTS RECEIVABLE 06/06/2024 2:37 AM SUPERVISOR ACCOUNTS RECEIVABLE us Fabrizio Fung MD LAB BLOOD ORDERABLES Final Resu lt [facility] ([place] 1 [facility] Department of Laboratories [place], [place] [id number] * POCT glucose (06/06/2024 2:08 AM SUPERVISOR ACCOUNTS RECEIVABLE) Glucose, POC 149 70 - 199 mg/dL Comment:Glu2: RN/ Notified Blood 06/06/2024 2:08 AM SUPERVISOR ACCOUNTS RECEIVABLE 06/06/2024 2:08 AM SUPERVISOR ACCOUNTS RECEIVABLE Zahraa Coon MD LAB POCT ORDERABLES - DEVICE Final Result Performing Organization Address City/[facility]/ZIP Co de Phone Number [facility] ([place]) 1 [facility] [place] [address] * POCT glucose (06/05/2024 8:28 PM SUPERVISOR ACCOUNTS RECEIVABLE) Glucose, POC 158 70 - 199 mg/dL Comment:Glu2: RN/MD Notified Blood 06/05/2024 8:28 PM SUPERVISOR ACCOUNTS RECEIVABLE 06/05/2024 8:28 PM SUPERVISOR ACCOUNTS RECEIVABLE us Zahraa Coon MD LAB POCT ORDERABLES - DEVICE Final Result Performing Organization Address [facility] Co de Phone Number [facility] ([place]) 1 [facility] [place] [address] * POCT glucose (06/05/2024 5:06 PM SUPERVISOR ACCOUNTS RECEIVABLE) Glucose, POC 123 70 - 199 mg/dL Blood 06/05/2024 5:06 PM SUPERVISOR ACCOUNTS RECEIVABLE 06/05/2024 5:06 PM SUPERVISOR ACCOUNTS RECEIVABLE us Zahraa Coon MD LAB POCT ORDERABLES - DEVICE Final Result Performing Organization Address City/[facility]/ZIP Co de Phone Number [facility] ([place]) 1 [facility] [place] [address] * (ABNORMAL) POCT glucose (06/05/2024 12:12 PM SUPERVISOR ACCOUNTS RECEIVABLE) Glucose, POC 204(H) 70 - 199 mg/dL Blood 06/05/2024 12:1 2 PM SUPERVISOR ACCOUNTS RECEIVABLE 06/05/2024 12:12 PM SUPERVISOR ACCOUNTS RECEIVABLE Zahraa Coon MD LAB POCT ORDERABLES - DEVICE Final Result Performing Organization Address City/[facility]/ZIP Co de Phone Number [facility] ([place]) 1 [facility] [place] [address] * POCT glucose (06/05/2024 7:37 AM SUPERVISOR ACCOUNTS RECEIVABLE) Glucose, POC 160 70 - 199 mg/dL Blood 06/05/2024 7:37 AM SUPERVISOR ACCOUNTS RECEIVABLE 06/05/2024 7:37 AM SUPERVISOR ACCOUNTS RECEIVABLE us Zahraa Coon MD LAB POCT ORDERABLES - DEVICE Final Result [facility] ([place]) 1 [place] [address] * eGFR (06/05/2024 2:44 AM SUPERVISOR ACCOUNTS RECEIVABLE) eGFR 89 >=60 mL/min/1. 73 m2 Comment: [...] last reviewed 2021. Blood 06/05/2024 2:44 AM SUPERVISOR ACCOUNTS RECEIVABLE 06/05/2024 4:16 AM SUPERVISOR ACCOUNTS RECEIVABLE us Fabrizio Fung MD LAB BLOOD ORDERABLES Final Resu lt [facility] ([place]) 1 [facility] [place] [address] * Differential, auto (06/05/2024 2:44 AM SUPERVISOR ACCOUNTS RECEIVABLE) Neutrophil abs 4.2 1.5 - 6.5 K/cumm [...] revised on 2017. Monocyte pct 8.9 % [facility] ([place]) Comment: Interpretive Data [...] revised on 2017. Blood 06/05/2024 2:44 AM SUPERVISOR ACCOUNTS RECEIVABLE 06/05/2024 3:57 AM SUPERVISOR ACCOUNTS RECEIVABLE us Fabrizio Fung MD LAB BLOOD ORDERABLES Final Resu lt [facility] ([place]) 1 [facility] Department [place] [address] * (ABNORMAL) CBC with auto differential (06/05/2024 2:44 AM SUPERVISOR ACCOUNTS RECEIVABLE) WBC 6.7 3.8 - 9.9 K/cumm Hgb 10.1(L) 11.9 - 15.5 g/dL [facility] ([place]) Hct 35.5(L) 35.6 - 45.5 % [facility] ([place]) Plt 192 150 - 400 K/cumm [facility] ([place]) MPV 11.1 9.1 - 12.3 fL [facility] ([place]) RBC 3.51(L) 3.90 - 5.20 M/cumm [facility] ([place]) MCV 101.1(H) 81.3 - 96.4 fL [facility] ([place]) Comment:MCV delta possibly d ue to low sample volume. MCH 28.8 27.1 - 33.3 pg [facility] ([place]) MCHC 28.5(L) 32.3 - 35.7 g/dL [facility] ([place]) RDW CV 17.2(H) 11.1 - 14.9 % [facility] ([place]) RDW SD 63.6(H) 35.7 - 48.1 fL [facility] ([place]) NRBC abs 0.00 0.00 - 0.01 K/cumm [facility] ([place]) Blood 06/05/2024 2:44 AM SUPERVISOR ACCOUNTS RECEIVABLE 06/05/2024 3:57 AM SUPERVISOR ACCOUNTS RECEIVABLE Fabrizio Fung MD LAB BLOOD ORDERABLES Final Resu lt [facility] ([place]) 1 [facility] Department [place] [address] * Magnesium (06/05/2024 2:44 AM SUPERVISOR ACCOUNTS RECEIVABLE) Magnesium 1.9 1.4 - 2.5 mg/dL Blood 06/05/2024 2:44 AM SUPERVISOR ACCOUNTS RECEIVABLE 06/05/2024 4:16 AM SUPERVISOR ACCOUNTS RECEIVABLE Fabrizio Fung MD LAB BLOOD ORDERABLES Final Resu lt [facility] ([place]) 1 [facility] Department [place] [address] * (ABNORMAL) Comprehensive metabolic panel (06/05/2024 2:44 AM SUPERVISOR ACCOUNTS RECEIVABLE) Sodium 139 135 - 145 mmol/L Potassium, [...] Slightly Hemolyzed Specimen Blood 06/05/2024 2:44 AM SUPERVISOR ACCOUNTS RECEIVABLE 06/05/2024 4:16 AM SUPERVISOR ACCOUNTS RECEIVABLE us Fabrizio Fung MD LAB BLOOD ORDERABLES Final Resu lt [facility] ([place]) 1 [facility] [place] [address] * POCT glucose (06/05/2024 2:12 AM SUPERVISOR ACCOUNTS RECEIVABLE) Glucose, POC 141 70 - 199 mg/dL Blood 06/05/2024 2:12 AM SUPERVISOR ACCOUNTS RECEIVABLE 06/05/2024 2:12 AM SUPERVISOR ACCOUNTS RECEIVABLE us Zahraa Coon MD LAB POCT ORDERABLES - DEVICE Final Result Performing Organization Address [facility] Co de Phone Number [facility] (S[place]) 1 [facility] [place] [address] * POCT glucose (06/04/2024 8:26 PM SUPERVISOR ACCOUNTS RECEIVABLE) Glucose, POC 153 70 - 199 mg/dL Blood 06/04/2024 8:26 PM SUPERVISOR ACCOUNTS RECEIVABLE 06/04/2024 8:26 PM SUPERVISOR ACCOUNTS RECEIVABLE Zahraa Coon MD LAB POCT ORDERABLES - DEVICE Final Result Performing Organization Address [facility]/ZIP Co de Phone Number [facility] ([place]) 1 [facility] [place] [address] * CT Head WO Contrast (06/04/2024 5:05 PM SUPERVISOR ACCOUNTS RECEIVABLE) Anatomical Region Laterality Modality Head and Neck N/A Computed Tomogra phy 06/04/2024 6:09 PM SUPERVISOR ACCOUNTS RECEIVABLE Narrative 06/04/2024 6:13 PM SUPERVISOR ACCOUNTS RECEIVABLE EXAM DESCRIPTION: CT HEAD WO CONTRAST REASON [...] Sammy Smith M.D. LB: EDEN Report ID: [id number] Reading Location: [id number] Procedure Note Sammy Smith MD - 06/04/2024 [...] Sammy Smith M.D. LB: EDEN Report ID: [id number] Reading Location: [id number] Zahraa Coon MD IMG CT PROCEDURES Final Resul t * POCT glucose (06/04/2024 4:38 PM SUPERVISOR ACCOUNTS RECEIVABLE) Glucose, POC 149 70 - 199 mg/dL Blood 06/04/2024 4:38 PM SUPERVISOR ACCOUNTS RECEIVABLE 06/04/2024 4:38 PM SUPERVISOR ACCOUNTS RECEIVABLE Zahraa Coon MD LAB POCT ORDERABLES - DEVICE Final Result Performing Organization Address [facility] Co de Phone Number [facility] ([place] 1 [facility] [place] [address] * POCT glucose (06/04/2024 11:52 AM SUPERVISOR ACCOUNTS RECEIVABLE) Glucose, POC 180 70 - 199 mg/dL Blood 06/04/2024 11:5 2 AM SUPERVISOR ACCOUNTS RECEIVABLE 06/04/2024 11:52 AM SUPERVISOR ACCOUNTS RECEIVABLE Zahraa Coon MD LAB POCT ORDERABLES - DEVICE Final Result Performing Organization Address [facility] Co de Phone Number [facility] ([place]) 1 [facility] [place] [address] * POCT glucose (06/04/2024 7:56 AM SUPERVISOR ACCOUNTS RECEIVABLE) [facility] Glucose, POC 112 70 - 199 mg/dL Blood 06/04/2024 7:56 AM SUPERVISOR ACCOUNTS RECEIVABLE 06/04/2024 7:56 AM SUPERVISOR ACCOUNTS RECEIVABLE us Zahraa Coon MD LAB POCT ORDERABLES - DEVICE Final Result Performing Organization Address City/[facility]/ZIP Co de Phone Number [facility] ([place]) [address] [place] [address] [place] [address] * eGFR (06/04/2024 3:21 AM SUPERVISOR ACCOUNTS RECEIVABLE) [facility] eGFR >90 >=60 mL/min/1. 73 m2 Comment: [...] of Race in Diagnosing Kidney Disease, JASN 202). The CKD-EPI equation should not be used for patients with unstable renal function and has not been validated in children and those over 70. Current interpretive data was last reviewed 2021. Blood 06/04/2024 3:21 AM SUPERVISOR ACCOUNTS RECEIVABLE 06/04/2024 3:41 AM SUPERVISOR ACCOUNTS RECEIVABLE us Fabrizio Fung MD LAB BLOOD ORDERABLES Final Resu lt [facility] ([place]) 1 [facility] Department [place] [address] * Differential, auto (06/04/2024 3:21 AM SUPERVISOR ACCOUNTS RECEIVABLE) Neutrophil abs 3.7 1.5 - 6.5 K/cumm [...] revised on 2017. Blood 06/04/2024 3:21 AM SUPERVISOR ACCOUNTS RECEIVABLE 06/04/2024 3:42 AM SUPERVISOR ACCOUNTS RECEIVABLE Fabrizio Fung MD LAB BLOOD ORDERABLES Final Resu lt [facility] (ROM[facility]) 1 [facility] Department [place] [address] * (ABNORMAL) CBC with auto differential (06/04/2024 3:21 AM SUPERVISOR ACCOUNTS RECEIVABLE) WBC 5.7 3.8 - 9.9 K/cumm Hgb 9.5(L) 11.9 - 15.5 g/dL [facility] ([place]) Hct 31.7(L) 35.6 - 45.5 [...] - 0.01 K/cumm [facility] ([place]) Blood 06/04/2024 3:21 AM SUPERVISOR ACCOUNTS RECEIVABLE 06/04/2024 3:42 AM SUPERVISOR ACCOUNTS RECEIVABLE Fabrizio Fung MD LAB BLOOD ORDERABLES Final Resu lt [facility] ([place]) 1 [facility] [place] [address] * Magnesium (06/04/2024 3:21 AM SUPERVISOR ACCOUNTS RECEIVABLE) Magnesium 2.0 1.4 - 2.5 mg/dL Blood 06/04/2024 3:21 AM SUPERVISOR ACCOUNTS RECEIVABLE 06/04/2024 3:41 AM SUPERVISOR ACCOUNTS RECEIVABLE us Fabrizio Fung MD LAB BLOOD ORDERABLES Final Resu lt [facility] (ROMY) 1 [facility] Department [place] [address] * (ABNORMAL) Comprehensive metabolic panel (06/04/2024 3:21 AM SUPERVISOR ACCOUNTS RECEIVABLE) Sodium 139 135 - 145 mmol/L Potassium, [...] [facility] ([place]) Blood 06/04/2024 3:21 AM SUPERVISOR ACCOUNTS RECEIVABLE 06/04/2024 3:41 AM SUPERVISOR ACCOUNTS RECEIVABLE us Fabrizio Fung MD LAB BLOOD ORDERABLES Final Resu lt [facility] (SACUL) 1 [facility] [place] [address] * POCT glucose (06/04/2024 1:58 AM SUPERVISOR ACCOUNTS RECEIVABLE) Glucose, POC 145 70 - 199 mg/dL Blood 06/04/2024 1:58 AM SUPERVISOR ACCOUNTS RECEIVABLE 06/04/2024 1:58 AM SUPERVISOR ACCOUNTS RECEIVABLE us Zahraa Coon MD LAB POCT ORDERABLES - DEVICE Final Result Performing Organization Address [facility] Co de Phone Number [facility] (SACUL) 1 [facility] [place] [address] * (ABNORMAL) POCT glucose (06/03/2024 11:55 PM SUPERVISOR ACCOUNTS RECEIVABLE) Glucose, POC 214(H) 70 - 199 mg/dL Blood 06/03/2024 11:5 5 PM SUPERVISOR ACCOUNTS RECEIVABLE 06/03/2024 11:55 PM SUPERVISOR ACCOUNTS RECEIVABLE us Zahraa Coon MD LAB POCT ORDERABLES - DEVICE Final Result Performing Organization Address [facility] Co de Phone Number [facility] (S[place]UL) 1 [facility] [place] [address] * POCT glucose (06/03/2024 8:37 PM SUPERVISOR ACCOUNTS RECEIVABLE) Glucose, POC 149 70 - 199 mg/dL Blood 06/03/2024 8:37 PM SUPERVISOR ACCOUNTS RECEIVABLE 06/03/2024 8:37 PM SUPERVISOR ACCOUNTS RECEIVABLE us Zahraa Coon MD LAB POCT ORDERABLES - DEVICE Final Result [facility] (S[place]) 1 [facility] [place] [address] * POCT glucose (06/03/2024 5:14 PM SUPERVISOR ACCOUNTS RECEIVABLE) Glucose, POC 106 70 - 199 mg/dL Blood 06/03/2024 5:14 PM SUPERVISOR ACCOUNTS RECEIVABLE 06/03/2024 5:14 PM SUPERVISOR ACCOUNTS RECEIVABLE us Zahraa Coon MD LAB POCT ORDERABLES - DEVICE Final Result Performing Organization Address City/[facility]/ZIP Co de Phone Number [facility] (SACUL) 1 [facility] [place] [address] * (ABNORMAL) POCT glucose (06/03/2024 11:51 AM SUPERVISOR ACCOUNTS RECEIVABLE) Glucose, POC 203(H) 70 - 199 mg/dL Blood 06/03/2024 11:5 1 AM SUPERVISOR ACCOUNTS RECEIVABLE 06/03/2024 11:51 AM SUPERVISOR ACCOUNTS RECEIVABLE us Zahraa Coon MD LAB POCT ORDERABLES - DEVICE Final Result [facility] (S[place]UL) 1 [facility] [place] [address] * POCT glucose (06/03/2024 7:23 AM SUPERVISOR ACCOUNTS RECEIVABLE) Glucose, POC 93 70 - 199 mg/dL Blood 06/03/2024 7:23 AM SUPERVISOR ACCOUNTS RECEIVABLE 06/03/2024 7:23 AM SUPERVISOR ACCOUNTS RECEIVABLE us Zahraa Coon MD LAB POCT ORDERABLES - DEVICE Final Result [facility] (SACUL) 1 [facility] [place] [place] [address] * POCT glucose (06/03/2024 2:21 AM SUPERVISOR ACCOUNTS RECEIVABLE) Glucose, POC 107 70 - 199 mg/dL Blood 06/03/2024 2:21 AM SUPERVISOR ACCOUNTS RECEIVABLE 06/03/2024 2:21 AM SUPERVISOR ACCOUNTS RECEIVABLE Zahraa Coon MD LAB POCT ORDERABLES - DEVICE Final Result Performing Organization Address [facility] Co de Phone Number [facility] (S[place]) 1 [facility] [place] [address] * eGFR (06/03/2024 2:18 AM SUPERVISOR ACCOUNTS RECEIVABLE) Pathologist [facility] eGFR >90 >=60 mL/min/1. 73 m2 Comment: [...] last reviewed 2021. Blood 06/03/2024 2:18 AM SUPERVISOR ACCOUNTS RECEIVABLE 06/03/2024 3:35 AM SUPERVISOR ACCOUNTS RECEIVABLE us Fabrizio Fung MD LAB BLOOD ORDERABLES Final Resu lt Performing Organization Address City/[facility]/ZIP Co de Phone Number [facility] ([place]) 1 [facility] [place] [address] * Differential, auto (06/03/2024 2:18 AM SUPERVISOR ACCOUNTS RECEIVABLE) Neutrophil abs 3.1 1.5 - 6.5 K/cumm [...] revised on 2017. Blood 06/03/2024 2:18 AM SUPERVISOR ACCOUNTS RECEIVABLE 06/03/2024 3:38 AM SUPERVISOR ACCOUNTS RECEIVABLE Fabrizio Fung MD LAB BLOOD ORDERABLES Final Resu lt [facility] ([place]) 1 [facility] [place] [address] * (ABNORMAL) CBC with auto differential (06/03/2024 2:18 AM SUPERVISOR ACCOUNTS RECEIVABLE) WBC 5.2 3.8 - 9.9 K/cumm Hgb 9.8(L) 11.9 - 15.5 g/dL [facility] ([place]) Hct 32.5(L) 35.6 - 45.5 % [...] [facility] ([place]) Blood 06/03/2024 2:18 AM SUPERVISOR ACCOUNTS RECEIVABLE 06/03/2024 3:38 AM SUPERVISOR ACCOUNTS RECEIVABLE Fabrizio Fung MD LAB BLOOD ORDERABLES Final Resu lt [facility] ([place]) 1 [facility] [place] [address] * Magnesium (06/03/2024 2:18 AM SUPERVISOR ACCOUNTS RECEIVABLE) Magnesium 2.1 1.4 - 2.5 mg/dL Blood 06/03/2024 2:18 AM SUPERVISOR ACCOUNTS RECEIVABLE 06/03/2024 3:35 AM SUPERVISOR ACCOUNTS RECEIVABLE us Fabrizio Fung MD LAB BLOOD ORDERABLES Final Resu lt [facility] ([place]) 1 [facility] Department [place] [address] * (ABNORMAL) Comprehensive metabolic panel (06/03/2024 2:18 AM SUPERVISOR ACCOUNTS RECEIVABLE) Sodium 141 135 - 145 mmol/L Potassium, pl 3.7 3.3 - 4.9 mmol/L [facility] ([place]) Chloride 104 97 - 110 mmol/L [facility] ([place]) CO2 30 22 - 32 mmol/L [facility] ([place]) Anion gap 7 2 - 15 mmol/L [facility] ([place]) BUN 7 6 - 25 mg/dL [facility] Creatinine 0.55(L) 0.60 - 1.10 mg/dL [facility] ([place]) Glucose 118 70 - 199 mg/dL [facility] Comment: Interpretive Data Fasting glucose [...] 0.2 0.1 - 1.2 mg/dL [facility] ([place]) Protein, pl 5.8(L) 6.5 - 8.5 g/dL [facility] ([place]) Albumin 3.2(L) 3.5 - 5.0 g/dL [facility] ([place]) Alk phos 68 40 - 130 Units/L [facility] ([place]) ALT 19 7 - 45 Units/L [facility] ([place]) AST 37 10 - 45 Units/L [facility] ([place]) Blood 06/03/2024 2:18 AM SUPERVISOR ACCOUNTS RECEIVABLE 06/03/2024 3:35 AM SUPERVISOR ACCOUNTS RECEIVABLE us Fabrizio Fung MD LAB BLOOD ORDERABLES Final Resu lt [facility] (S[place]) 1 [facility] [place] [address] * POCT glucose (06/02/2024 8:40 PM SUPERVISOR ACCOUNTS RECEIVABLE) Glucose, POC 116 70 - 199 mg/dL Blood 06/02/2024 8:40 PM SUPERVISOR ACCOUNTS RECEIVABLE 06/02/2024 8:40 PM SUPERVISOR ACCOUNTS RECEIVABLE us Zahraa Coon MD LAB POCT ORDERABLES - DEVICE Final Result Performing Organization Address City/[facility]/ZIP Co de Phone Number [facility] (SACUL) 1 [facility] [place] [address] * POCT glucose (06/02/2024 4:30 PM SUPERVISOR ACCOUNTS RECEIVABLE) Glucose, POC 123 70 - 199 mg/dL Blood 06/02/2024 4:30 PM SUPERVISOR ACCOUNTS RECEIVABLE 06/02/2024 4:30 PM SUPERVISOR ACCOUNTS RECEIVABLE us Zahraa Coon MD LAB POCT ORDERABLES - DEVICE Final Result Performing Organization Address City/[facility]/ZIP Co de Phone Number [facility] (SACUL) 1 [facility] [place] [address] * POCT glucose (06/02/2024 11:30 AM SUPERVISOR ACCOUNTS RECEIVABLE) Glucose, POC 127 70 - 199 mg/dL Blood 06/02/2024 11:3 0 AM SUPERVISOR ACCOUNTS RECEIVABLE 06/02/2024 11:30 AM SUPERVISOR ACCOUNTS RECEIVABLE Zahraa Coon MD LAB POCT ORDERABLES - DEVICE Final Result [facility] WATKINS) 1 [facility] [place] [address] * POCT glucose (06/02/2024 8:26 AM SUPERVISOR ACCOUNTS RECEIVABLE) Glucose, POC 137 70 - 199 mg/dL Blood 06/02/2024 8:26 AM SUPERVISOR ACCOUNTS RECEIVABLE 06/02/2024 8:26 AM SUPERVISOR ACCOUNTS RECEIVABLE Zahraa Coon MD LAB POCT ORDERABLES - DEVICE Final Result Performing Organization Address City/[facility] Co de Phone Number [facility] (SACUL) 1 [facility] [place] [address] * eGFR (06/02/2024 4:52 AM SUPERVISOR ACCOUNTS RECEIVABLE) eGFR >90 >=60 mL/min/1. 73 m2 Comment: [...] last reviewed 2021. Blood 06/02/2024 4:52 AM SUPERVISOR ACCOUNTS RECEIVABLE 06/02/2024 4:58 AM SUPERVISOR ACCOUNTS RECEIVABLE us Fabrizio Fung MD LAB BLOOD ORDERABLES Final Resu lt [facility] (S[place]UL) 1 [facility] Department [place] [address] * Differential, auto (06/02/2024 4:52 AM SUPERVISOR ACCOUNTS RECEIVABLE) Neutrophil abs 3.6 1.5 - 6.5 K/cumm Imm gran abs 0.0 0.0 - 0.1 K/cumm [facility] ([place]) Lymphocyte abs 1.0 0.8 - 3.3 K/cumm [facility] (S[place]) Monocyte abs 0.4 0.2 - 0.8 K/cumm [...] revised on 2017. Basophil pct 0.8 % [facility] ([place]) Comment: Interpretive Data Percent cell count reference ranges are not reported, since discordance with absolute values may lead to misinterpretation of CBC data. Current Interpretive Data was last revised on 2017. Blood 06/02/2024 4:52 AM SUPERVISOR ACCOUNTS RECEIVABLE 06/02/2024 4:58 AM SUPERVISOR ACCOUNTS RECEIVABLE us Fabrizio Fung MD LAB BLOOD ORDERABLES Final Resu lt Performing Organization Address City/[facility]/ZIP Co de Phone Number [facility] (SACUL) 1 [facility] [place] [address] * Procalcitonin (06/02/2024 4:52 AM SUPERVISOR ACCOUNTS RECEIVABLE) Procalcitonin 0.09 <=0.25 ng/mL Comment:Testing performed by : [facility], [address] [place] [address], [id number] Blood 06/02/2024 4:52 AM SUPERVISOR ACCOUNTS RECEIVABLE 06/02/2024 5:50 PM SUPERVISOR ACCOUNTS RECEIVABLE us Zahraa Coon MD LAB BLOOD ORDERABLES Final Re sult Performing Organization Address City/[facility]/ZIP Co de Phone Number [facility] ([place]) 1 [facility] [place] [address] * (ABNORMAL) CBC with auto differential (06/02/2024 4:52 AM SUPERVISOR ACCOUNTS RECEIVABLE) WBC 5.1 3.8 - 9.9 K/cumm Hgb 10.4(L) 11.9 - 15.5 g/dL [facility] (RMOY) Hct 34.7(L) 35.6 - 45.5 % [facility] ([place]) Plt 176 150 - 400 K/cumm [facility] ([place]) MPV 10.7 9.1 - 12.3 fL [facility] RBC 3.63(L) 3.90 - 5.20 M/cumm [facility] ([place]) MCV 95.6 81.3 - 96.4 fL [facility] ([place]) MCH 28.7 27.1 - 33.3 pg [facility] ([place]) MCHC 30.0(L) 32.3 - 35.7 g/dL [facility] ([place]) RDW CV 17.3(H) 11.1 - 14.9 % [facility] ([place]) RDW SD 60.7(H) 35.7 - 48.1 fL [facility] ([place]) NRBC abs 0.04(H) 0.00 - 0.01 K/cumm [facility] Blood 06/02/2024 4:52 AM SUPERVISOR ACCOUNTS RECEIVABLE 06/02/2024 4:58 AM SUPERVISOR ACCOUNTS RECEIVABLE Fabrizio Fung MD LAB BLOOD ORDERABLES Final Resu lt Performing Organization Address [facility] Co de Phone Number [facility] 1 [facility] [email or web address] [address] * Magnesium (06/02/2024 4:52 AM SUPERVISOR ACCOUNTS RECEIVABLE) Pathologist [facility] Magnesium 2.1 1.4 - 2.5 mg/dL Blood 06/02/2024 4:52 AM SUPERVISOR ACCOUNTS RECEIVABLE 06/02/2024 4:58 AM SUPERVISOR ACCOUNTS RECEIVABLE Fabrizio Fung MD LAB BLOOD ORDERABLES Final Resu lt Performing Organization Address City/[facility] Co de Phone Number [facility] ([place]) 1 [facility] [place] [address] * (ABNORMAL) Comprehensive metabolic panel (06/02/2024 4:52 AM SUPERVISOR ACCOUNTS RECEIVABLE) Sodium 143 135 - 145 mmol/L Potassium, pl 4.2 3.3 - 4.9 mmol/L [facility] Chloride 106 97 - 110 mmol/L [facility]) CO2 29 22 - 32 mmol/L [facility] ([place] Anion gap 8 2 - 15 mmol/L [facility] ([place]) BUN 8 6 - 25 mg/dL [facility] ([place]) Creatinine 0.52(L) 0.60 - 1.10 mg/dL [facility] ([place]) Glucose 114 70 - 199 mg/dL [facility] ([place]) [...] [facility] ([place]) Blood 06/02/2024 4:52 AM SUPERVISOR ACCOUNTS RECEIVABLE 06/02/2024 4:58 AM SUPERVISOR ACCOUNTS RECEIVABLE us Fabrizio Fung MD LAB BLOOD ORDERABLES Final Resu lt [facility] ([place]) 1 [facility] Department of Laboratories [place], [place] [id number] * POCT glucose (06/02/2024 4:45 AM SUPERVISOR ACCOUNTS RECEIVABLE) Glucose, POC 113 70 - 199 mg/dL Blood 06/02/2024 4:45 AM SUPERVISOR ACCOUNTS RECEIVABLE 06/02/2024 4:45 AM SUPERVISOR ACCOUNTS RECEIVABLE us Kyler Moran MD LAB POCT ORDERABLES - DEVICE Fin al Result Performing Organization Address City/[facility]/ZIP Co de Phone Number [facility] (SACUL) 1 [facility] [place] [address] * POCT glucose (06/02/2024 2:19 AM SUPERVISOR ACCOUNTS RECEIVABLE) Glucose, POC 171 70 - 199 mg/dL Blood 06/02/2024 2:19 AM SUPERVISOR ACCOUNTS RECEIVABLE 06/02/2024 2:19 AM SUPERVISOR ACCOUNTS RECEIVABLE Result Chiquis Moran MD LAB POCT ORDERABLES - DEVICE Fin al Result Performing Organization Address [facility] Co de Phone Number [facility] (SACUL) 1 [facility] [place] [address] * POCT glucose (06/01/2024 11:39 PM SUPERVISOR ACCOUNTS RECEIVABLE) Glucose, POC 163 70 - 199 mg/dL Blood 06/01/2024 11:3 9 PM SUPERVISOR ACCOUNTS RECEIVABLE 06/01/2024 11:39 PM SUPERVISOR ACCOUNTS RECEIVABLE Result Chiquis Moran MD LAB POCT ORDERABLES - DEVICE Fin al Result Performing Organization Address [facility] Co de Phone Number [facility] (SACUL) 1 [facility] [place] [address] * POCT glucose (06/01/2024 6:18 PM SUPERVISOR ACCOUNTS RECEIVABLE) Glucose, POC 84 70 - 199 mg/dL Blood 06/01/2024 6:18 PM SUPERVISOR ACCOUNTS RECEIVABLE 06/01/2024 6:18 PM SUPERVISOR ACCOUNTS RECEIVABLE Result Chiquis Moran MD LAB POCT ORDERABLES - DEVICE Fin al Result [facility] (S[place]UL) 1 [facility] [place] [address] * Troponin T high-sensitivity 2-hour (06/01/2024 6:14 PM SUPERVISOR ACCOUNTS RECEIVABLE) Trop T hs 11 <=14 ng/L Comment: Interpretive Data For further hscTnT resources including the diagnostic algorithm and an aid in interpretation, copy and paste this link: https://nrl.testcatalog.org/show/hsTrop Current Interpretive Data last revised 2020. Trop T hs delta 0 ng/L [facility] (S[place]) Trop T hs interp Insignificant [facility] ([place]) Blood 06/01/2024 6:14 PM SUPERVISOR ACCOUNTS RECEIVABLE 06/01/2024 6:17 PM SUPERVISOR ACCOUNTS RECEIVABLE Silvia Reed MD LAB BLOOD ORDERABLE S Final Result Performing Organization Address [facility] Co de Phone Number [facility] (S[place]UL) 1 [facility] [place] [address] * Sepsis Lactate w/ Reflex (06/01/2024 6:14 PM SUPERVISOR ACCOUNTS RECEIVABLE) Sepsis Lactate 1.2 0.7 - 2.0 mmol/L Blood 06/01/2024 6:14 PM SUPERVISOR ACCOUNTS RECEIVABLE 06/01/2024 6:17 PM SUPERVISOR ACCOUNTS RECEIVABLE Silvia Reed MD LAB BLOOD ORDERABLE S Final Result Performing Organization Address [facility] Co de Phone Number [facility] (SACUL) 1 [facility] [place] [address] * CT Chest PE (CTA) Abdomen Pelvis W Contrast (06/01/2024 5:04 PM SUPERVISOR ACCOUNTS RECEIVABLE) Anatomical Region Laterality Modality Body N/A Computed Tomogra phy 06/01/2024 5:07 PM SUPERVISOR ACCOUNTS RECEIVABLE Narrative 06/01/2024 5:27 PM SUPERVISOR ACCOUNTS RECEIVABLE EXAM DESCRIPTION: CT HEAD WO CONTRAST; CT [...] Laura Galvin M.D. AT: AT Report ID: [id number] Reading Location: [place] [address] Procedure Note Laura Galvin MD - 06/01/2024 [...] Laura Galvin M.D. AT: AT Report ID: [id number] Reading Location: [id number] Silvia Reed MD IMG CT PROCEDURES F inal Result * CT Head WO Contrast (06/01/2024 5:04 PM SUPERVISOR ACCOUNTS RECEIVABLE) Anatomical Region Laterality Modality Head and Neck N/A Computed Tomogra phy 06/01/2024 5:07 PM SUPERVISOR ACCOUNTS RECEIVABLE Narrative 06/01/2024 5:27 PM SUPERVISOR ACCOUNTS RECEIVABLE EXAM DESCRIPTION: CT HEAD WO CONTRAST; CT [...] Laura Galvin M.D. AT: AT Report ID: [id number] Reading Location: [id number] Procedure Note Laura Galvin MD - 06/01/2024 [...] Laura Galvin M.D. AT: AT Report ID: [id number] Reading Location: [id number] Silvia Reed MD IMG CT PROCEDURES F inal Result * ECG 12 lead (06/01/2024 4:02 PM SUPERVISOR ACCOUNTS RECEIVABLE) 06/01/2024 4:02 PM SUPERVISOR ACCOUNTS RECEIVABLE Narrative [facility] - 06/01/2024 7:00 PM SUPERVISOR ACCOUNTS RECEIVABLE Vent Rate: 54 bpm RR Interval: [address] Interval: 0 msec QRS Duration: 85 msec QT Interval: 428 msec QTC Interval: 415 msec P-R-T [place]: [address] - -22 - 53 degrees IMPRESSION: Sinus BRADYCARDIA BORDERLINE LEFT AXIS DEVIATION [QRS AXIS < -20] LOW QRS VOLTAGE IN PRECORDIAL LEADS [QRS DEFLECTION < 1.0 mV IN CHEST LEADS] NONSPECIFIC T-WAVE ABNORMALITY ABNORMAL RHYTHM ECG Electronically Signed By: Zaki Knox MD Silvia Reed MD ECG ORDERABLES Fin al Result [facility] * Blood culture Blood Peripheral (06/01/2024 3:52 PM SUPERVISOR ACCOUNTS RECEIVABLE) Report Final Report: No growth Comment:Testing performed by : [facility], [address] [facility], [place]., [address] Blood (Peripheral) 06/01/2024 3:52 PM SUPERVISOR ACCOUNTS RECEIVABLE 06/01/2024 6:14 PM SUPERVISOR ACCOUNTS RECEIVABLE Narrative [facility] ([place]) - 06/06/2024 7:00 AM SUPERVISOR ACCOUNTS RECEIVABLE From a different site than #1. Draw [...] performance characteristics have been verified by the [facility]. For questions about this culture, contact the Microbiology Laboratory at [phone]. Interpretive data was last revised on 24. Silvia Reed MD LAB MICROBIOLOGY - GENERAL ORDERABLES Final Result [facility] (ROMY) 1 [facility] Department [place] [address] * Blood culture Blood Peripheral (06/01/2024 3:52 PM SUPERVISOR ACCOUNTS RECEIVABLE) Report Final Report: No growth Comment:Testing performed by : [facility], [address] [facility], [place]., [address] Blood (Peripheral) 06/01/2024 3:52 PM SUPERVISOR ACCOUNTS RECEIVABLE 06/01/2024 6:14 PM SUPERVISOR ACCOUNTS RECEIVABLE Narrative [facility] ([place]) - 06/06/2024 7:00 AM SUPERVISOR ACCOUNTS RECEIVABLE Draw Blood cultures before administration of Antibiotics [...] performance characteristics have been verified by the [facility]. For questions about this culture, contact the Microbiology Laboratory at [phone]. Interpretive data was last revised on 24. Silvia Reed MD LAB MICROBIOLOGY - GENERAL ORDERABLES Final Result Performing Organization Address City/[facility]/ZIP Co de Phone Number [facility] GUERRERO SACUL) 1 [facility] [email or web address] [place], [place] [id number] * Troponin T high-sensitivity series (baseline, 2hr, 4hr, 6hr) (06/01/2024 3:28 PM SUPERVISOR ACCOUNTS RECEIVABLE) [facility] Trop T hs 11 <=14 ng/L Comment: Interpretive Data For further hscTnT resources including the diagnostic algorithm and an aid in interpretation, copy and paste this link: https://nrl.testcatalog.org/show/hsTrop Current Interpretive Data last revised 2020. Blood 06/01/2024 3:28 PM SUPERVISOR ACCOUNTS RECEIVABLE 06/01/2024 3:33 PM SUPERVISOR ACCOUNTS RECEIVABLE Silvia Reed MD LAB BLOOD ORDERABLE S Final Result [facility] (SACUL) 1 [facility] Department [place] [address] * Influenza A/B, RSV, and COVID-19 PCR Nasopharyngeal (06/01/2024 3:28 PM SUPERVISOR ACCOUNTS RECEIVABLE) Pathologist [facility] COVID-19 RNA Negative Negative Influenza A RNA Negative Negative [facility] ([place]) Influenza B RNA Negative Negative [facility] ([place]) RSV RNA Negative Negative [facility] (SACUL) Comment: Interpretive data: Testing performed by [facility]. This test is performed using the [employer] Xpert Xpress CoV-2/Flu/RSV plus assay. This is a multiplex, real- time reverse transcriptase PCR assay intended for the qualitative detection of nucleic acid from SARS-CoV-2, influenza A, influenza B, and respiratory syncytial virus. This assay has been cleared by the [place] Food and Drug administration. The performance characteristics have been verified by the [facility]. Results must be considered in the clinical context, and a negative result does not rule out infection. Interpretive Data last revised 2023 Nasopharyngeal 06/01/2024 3: 28 PM SUPERVISOR ACCOUNTS RECEIVABLE 06/01/2024 3:33 PM SUPERVISOR ACCOUNTS RECEIVABLE Narrative [facility] (SACUL) - 06/01/2024 4:19 PM SUPERVISOR ACCOUNTS RECEIVABLE Is the Patient experiencing symptoms consistent with COVID?->Yes Silvia Reed MD LAB MICROBIOLOGY - GENERAL ORDERABLES Final Result [facility] (SACUL) 1 [facility] Department [place] [address] * (ABNORMAL) Sepsis Lactate w/ Reflex (06/01/2024 3:28 PM SUPERVISOR ACCOUNTS RECEIVABLE) Pathologist [facility] Sepsis Lactate 2.2(H) 0.7 - 2.0 mmol/L Blood 06/01/2024 3:28 PM SUPERVISOR ACCOUNTS RECEIVABLE 06/01/2024 3:33 PM SUPERVISOR ACCOUNTS RECEIVABLE Silvia Reed MD LAB BLOOD ORDERABLE S Final Result [facility] (SACUL) 1 [facility] Department [place] [address] * eGFR (06/01/2024 3:28 PM SUPERVISOR ACCOUNTS RECEIVABLE) Pathologist [facility] eGFR >90 >=60 mL/min/1. 73 m2 Comment: [...] last reviewed 2021. Blood 06/01/2024 3:28 PM SUPERVISOR ACCOUNTS RECEIVABLE 06/01/2024 3:33 PM SUPERVISOR ACCOUNTS RECEIVABLE us Silvia Reed MD LAB BLOOD ORDERABLE S Final Result RUBINA [facility]neSACUL) 1 [facility] Department [place] [address] * Differential, auto (06/01/2024 3:28 PM SUPERVISOR ACCOUNTS RECEIVABLE) Pathologist [facility] Neutrophil abs 3.6 1.5 - 6.5 K/cumm [...] revised on 2017. Monocyte pct 7.1 % [facility] ([place]) Comment: Interpretive Data Percent cell count reference ranges are not reported, since discordance with absolute values may lead to misinterpretation of CBC data. Current Interpretive Data was last revised on 2017. Eosinophil pct 1.5 % [facility] ([place]) Comment: Interpretive Data Percent cell count reference ranges are not reported, since discordance with absolute values may lead to misinterpretation of CBC data. Current Interpretive Data was last revised on 2017. Basophil pct 1.2 % [facility] ([place]) Comment: Interpretive Data Percent cell count reference ranges are not reported, since discordance with absolute values may lead to misinterpretation of CBC data. Current Interpretive Data was last revised on 2017. Blood 06/01/2024 3:28 PM SUPERVISOR ACCOUNTS RECEIVABLE 06/01/2024 3:33 PM SUPERVISOR ACCOUNTS RECEIVABLE us Silvia Reed MD LAB BLOOD ORDERABLE S Final Result [facility] ([place]) 1 [facility] Department [place] [address] * Pro B-type natriuretic peptide (06/01/2024 3:28 PM SUPERVISOR ACCOUNTS RECEIVABLE) NT-proBNP 138 <=300 pg/mL Comment: Interpretive Comments: [...] as advanced age. - References: 1. Yasmeen JL et.al. Eur Heart J. 2006:27:330-337. 2. Luis RW, Corwin AM. J. AM Tony Cardiol: Cardiovasc Imag. 2009;2: 216- 225. Interpretive Data Last Revised Date: 2017. Blood 06/01/2024 3:28 PM SUPERVISOR ACCOUNTS RECEIVABLE 06/01/2024 3:33 PM SUPERVISOR ACCOUNTS RECEIVABLE us Silvia Reed MD LAB BLOOD ORDERABLE S Final Result [facility] ([place]) 1 [facility] Department [place] [address] * (ABNORMAL) CBC with auto differential (06/01/2024 3:28 PM SUPERVISOR ACCOUNTS RECEIVABLE) Pathologist [facility] WBC 5.2 3.8 - 9.9 K/cumm Hgb 11.3(L) 11.9 - 15.5 g/dL [facility] ([place]) Hct 38.5 35.6 - 45.5 % [facility] ([place]) Plt 205 150 - 400 K/cumm [facility] ([place]) MPV 10.9 9.1 - 12.3 fL [facility] ([place]) RBC 4.05 3.90 - 5.20 M/cumm [facility] ([place]) MCV 95.1 81.3 - 96.4 fL [facility] ([place]) MCH 27.9 27.1 - 33.3 pg [facility] ([place]) MCHC 29.4(L) 32.3 - 35.7 g/dL [facility] ([place]) RDW CV 17.3(H) 11.1 - 14.9 % [facility] ([place]) RDW SD 61.3(H) 35.7 - 48.1 fL [facility] ([place]) NRBC abs 0.00 0.00 - 0.01 K/cumm [facility] ([place]) Blood 06/01/2024 3:28 PM SUPERVISOR ACCOUNTS RECEIVABLE 06/01/2024 3:33 PM SUPERVISOR ACCOUNTS RECEIVABLE us Silvia Reed MD LAB BLOOD ORDERABLE S Final Result [facility] ([place]) 1 [facility] Department of Laboratories [place], [place] [id number] * (ABNORMAL) Protime-INR (06/01/2024 3:28 PM SUPERVISOR ACCOUNTS RECEIVABLE) PT 15.4(H) 9.7 - 13.0 sec [facility] ([place]) INR 1.42(H) 0.90 - 1.20 [facility] ([place]) Comment: Interpretive data Oral anticoagulant therapeutic ranges: Venous thromboembolism prophylaxis or treatment: 2.0-3.0 CARDIOLOGY Standard range: 2.0-3.0 High-intensity range: 2.5-3.5 Refer to indication-specific guidelines for appropriate target ranges for prosthetic heart valve replacement. Current interpretive data was last revised on 2019. Blood 06/01/2024 3:28 PM SUPERVISOR ACCOUNTS RECEIVABLE 06/01/2024 3:33 PM SUPERVISOR ACCOUNTS RECEIVABLE us Silvia Reed MD LAB BLOOD ORDERABLE S Final Result [facility] ([place]) 1 [facility] Department [place] [address] * (ABNORMAL) Comprehensive metabolic panel (06/01/2024 3:28 PM SUPERVISOR ACCOUNTS RECEIVABLE) Sodium 140 135 - 145 mmol/L Potassium, pl 3.9 3.3 - 4.9 mmol/L [facility] ([place]) Chloride 100 97 - 110 mmol/L [facility] ([place]) CO2 32 22 - 32 mmol/L [...] [facility] ([place]) Blood 06/01/2024 3:28 PM SUPERVISOR ACCOUNTS RECEIVABLE 06/01/2024 3:33 PM SUPERVISOR ACCOUNTS RECEIVABLE us Silvia Reed MD LAB BLOOD ORDERABLE S Final Result [facility] ([place]) 1 [facility] Department [place] [address] from Last 3 Months Insurance [facility] [place] [address] MEDICARE RAILROAD Advance Directives For more information, please contact: [phone] Documents on File Type Date Recorded 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
== END 2024-08-15 07:38 | disposition home or self-care (01) ==
PROVIDERS: PCP Internal Medicine; Visit Provider Nurse Practitioner
DX: K74.60 Unspecified cirrhosis of liver (principal); K80.20 Calculus of gallbladder without cholecystitis without obstruction
CPT/HCPCS: 76705

== ENCOUNTER 2025-03-14 08:14 | Outpatient (CLI) | payer MEDICARE, MEDICAID, SELFPAY ==
--- NOTE | ~2025-03-14 | US_ITS ---
US abdomen limited Indication: HCC screening, cirrhosis Comparison: None Technique: Mcintyre-scale and color Doppler images were obtained. Findings: LIVER: Moderate increased echogenicity of the liver. The liver contours are nodular. . The liver measures 16.8 cm. GALLBLADDER/BILIARY: Cholelithiasis, no wall thickening, no pericholecystic fluid. CBD 3 mm. Mona sign negative. PANCREAS: Pancreas limited by bowel gas. Right Kidney: The right kidney was not imaged. Impression: 1. Mild cirrhotic disease of the liver. Cholelithiasis. Reviewed, dictated and finalized at location P. BUILDING SUPERVISOR Impression: 1. Mild cirrhotic disease of the liver. Cholelithiasis.
== END 2025-03-14 08:15 | disposition home or self-care (01) ==
LOC: ANHIMG 08:22
PROVIDERS: PCP Internal Medicine; Visit Provider Nurse Practitioner
DX: K74.60 Unspecified cirrhosis of liver (principal); K80.20 Calculus of gallbladder without cholecystitis without obstruction
CPT/HCPCS: 76705